=== PATIENT | female | born 1940 | race Caucasian/White ===

== ENCOUNTER → 2020-06-04 08:00 | Outpatient (BNV) | payer MEDICARE, SELFPAY | PROVIDERS: PCP Nurse Practitioner Family; Visit Provider Internal Medicine Medical Oncology | DX: C18.9 Malignant neoplasm of colon, unspecified (principal); Z85.3 Personal history of malignant neoplasm of breast; D64.9 Anemia, unspecified | CPT/HCPCS: 99212; 99213; 99214 ==

== ENCOUNTER 2020-06-22 07:24 | Outpatient (REF) | payer MEDICARE, SELFPAY ==
--- NOTE | 2020-06-22 07:32 | MM_ITS ---
EXAMINATION: MM SCREENING DIGITAL BREAST TOMOSYNTHESIS, BILATERAL CLINICAL INFORMATION: Screening. Asymptomatic. Prior history right breast cancer with lumpectomy 2009. COMPARISON: Mammography: 06/16/2019, 06/13/2018, 06/08/2017; targeted left breast ultrasound 06/17/2018 TECHNIQUE: Digital breast tomosynthesis is performed in both the craniocaudal and mediolateral oblique views along with computer-aided detection (CAD). Synthesized 2D images are generated from the tomosynthesis. Additional right CC view and exaggerated right CC view is provided. FINDINGS: There are scattered areas of fibroglandular density (ACR BI-RADS breast composition Category b). Parenchymal pattern is similar to prior studies. There are post therapy changes on the right with mild reduced breast size and benign scarring consistent with the lumpectomy. There is some dystrophic calcification within the scar. Small cyst retroareolar left breast is decreased in size since 2018. No interval architectural abnormality. No abnormal calcifications. No significant changes. MM/MM tomosynthesis screening BI IMPRESSION: No significant changes from prior exams. Post therapy changes right breast. ASSESSMENT: BI-RADS 2: Benign RECOMMENDATION: Routine annual mammography screening. This patient's information was entered into a reminder system with a target due date for their next mammogram.
--- NOTE | 2020-06-22 07:32 | MM_ITS ---
EXAMINATION: BONE DENSITOMETRY CLINICAL INDICATION: Osteoporosis. COMPARISON: Previous BD dated 06/13/2018 and baseline BD dated 06/22/2008. TECHNIQUE: Using a [employer] DXA System (software version: 13.1) manufactured by [employer], dual-energy x-ray absorptiometry was performed of the lumbar spine and left hip. The images are of good technical quality. Summary results are attached. FINDINGS: AP SPINE L1-L4: Current: BMD 0.854 g/cm2, Z-score -1.0, T-score -2.7, osteoporosis, 6.1% increase from previous, 10.9% increase from baseline (<5% change is not significant). Prior: BMD 0.805 g/cm2. Baseline: BMD 0.770 g/cm2. LEFT FEMUR, NECK: Current: BMD 0.726 g/cm2, Z-score -0.2, T-score -2.2, osteopenia. Prior: BMD 0.749 g/cm2. Baseline: BMD 0.821 g/cm2. LEFT FEMUR, TOTAL: Current: BMD 0.738 g/cm2, Z-score -0.2, T-score -2.1, osteopenia, 0.8% decrease from previous, 17.5% decrease from baseline (<5% change is not significant). Prior: BMD 0.744 g/cm2. Baseline: BMD 0.895 g/cm2. IDENTIFIED RISK FACTORS: Osteoporosis, height loss, early menopause, secondary osteoporosis, history of fracture (adult), thiazide, hysterectomy, bilateral oophorectomy. HISTORY OF FRACTURE: Wrist. No insufficiency fracture reported. MEDICATIONS: Calcium supplements or multivitamin, vitamin D. MM/XR DEXA axial skeleton IMPRESSION: 1. DIAGNOSIS: Osteoporosis based on the lowest T-score value of -2.7 in the lumbar spine applying World Health Organization criteria. 2. 10-YEAR FRACTURE RISK PREDICTION, FRAX: Major osteoporotic fracture (clinical spine, forearm, hip or shoulder) 24.6%. Hip fracture 7.3%. 3. Treatment Recommendations: NOF guidelines recommend consideration for treatment in postmenopausal women and men age 50 and older presenting with the following: -A hip or vertebral (clinical or morphometric) fracture. -T-score less than or equal to -2.5 at the femoral neck or spine after appropriate evaluation to exclude secondary causes. -Low bone mass at the hip or spine and a 10-year fracture probability by FRAX of greater than or equal to 3% for hip fracture or greater than or equal to 20% for major osteoporotic fracture based on the [place] adapted WHO algorithm. 4. Other Recommendations: All treatment decisions require clinical judgment and consideration of individual patient factors, including patient preferences, comorbidities, previous drug use, risk factors not captured in the FRAX model (e.g. frailty, falls, vitamin D deficiency, increased bone turnover, interval significant decline in bone density) and possible under or overestimation of fracture risk by FRAX. Additional medical evaluation for secondary cause of low bone mineral density may be appropriate. FUTURE SCAN RECOMMENDATION: People with diagnosed cases of osteoporosis or at high risk for fracture should have regular bone mineral density tests. For patients eligible for Medicare, routine testing is allowed once every 2 years. The testing frequency can be increased to one year for patients who have rapidly progressing disease, those who are receiving or discontinuing medical therapy to restore bone mass, or have additional risk factors.
== END 2020-06-22 07:25 | disposition home or self-care (01) ==
LOC: HO.MAMMO 07:24
PROVIDERS: Visit Provider Nurse Practitioner Family
DX: M81.0 Age-related osteoporosis without current pathological fracture (principal); Z12.31 Encounter for screening mammogram for malignant neoplasm of breast
CPT/HCPCS: 77063; 77067; 77080

== ENCOUNTER 2020-06-23 08:29 | Day surgery (SDC) | payer MEDICARE, SELFPAY ==
--- NOTE | 2020-06-22 12:38 | P.CONAN_ITS ---
Documented by User: Enid Ga 06/22/20 12:40 HPI - Anesthesia Eval Consult details Narrative: 80yo F for EGD: ALEJANDRO, GERD PMFSH Past Medical History Medical History Anemia B12 deficiency Breast cancer GERD (gastroesophageal reflux disease) Hypertension Osteoporosis Wrist fracture, bilateral Family History Family History Other Vaginal cancer Surgical History Surgical History (Updated 06/22/20 @ 12:28 by Katherine Villarreal RN) H/O colectomy H/O hysterectomy with oophorectomy History of appendectomy History of cataract surgery History of lumpectomy of right breast Hx of colonoscopy Hx of esophagogastroduodenoscopy Hx of lumpectomy S/P excision of lipoma Social History Social History Are you a primary intensive care specialist to a significant other at home: No Do you presently have visiting nurse or other home services: No Smoking Status: Former smoker Packs Per Day: 1 Cigarettes Per Day: 20.0 Years Smoked: 25 Smoked in Last 30 Days: No Smoking Quit Date: 1987 Use of substances other than those prescribed or required for medical reasons: No Advance Directives: No Advance Directives Information Provided: Yes (unknown) Advance Directives on File: No Recently lost weight without trying: Yes Meds Allergies Allergy/AdvReac Type Severity Reaction Status Date / Time meperidine [From Demerol] Allergy Mild VOMITING Verified 06/03/20 08:26 Home Medications Medication Instructions Recorded Confirmed Type calcium 500 mg PO BID 06/03/20 06/03/20 History cholecalciferol (vitamin D3) 25 mcg PO DAILY 06/03/20 06/03/20 History cyanocobalamin (vitamin B-12) 1,000 mcg IM QMONTH 06/03/20 06/03/20 History [B-12 Compliance] famotidine 20 mg PO BID 06/03/20 06/03/20 History ferrous sulfate 325 mg PO DAILY 06/03/20 06/03/20 History hydrochlorothiazide 25 mg PO DAILY 06/03/20 06/03/20 History btoxyjmtqpta-npiqvpby-wchcws 1 tab PO DAILY 06/03/20 06/03/20 History [Centrum Silver] tizanidine 4 mg PO BEDTIME PRN 06/03/20 06/03/20 History Exam Exam Date and Time: June 22, 2020 1238 Pertinent Lab Results Pertinent Lab Results: Laboratory Tests 06/03/20 06/03/20 08:42 08:42 WBC 3.8 L Hgb 7.4 L Hct 26.1 L Plt Count 312 Sodium 140 Potassium 4.1 Chloride 106 Carbon Dioxide 24 BUN 26 H Creatinine 1.04 Assessment and Plan Assessment Anesthesia Assessment: Chart Reviewed Documented by User: Isi Rowell 06/23/20 09:22 PMFSH Past Medical History Medical History Anemia B12 deficiency Breast cancer GERD (gastroesophageal reflux disease) Hypertension Osteoporosis Wrist fracture, bilateral Family History Family History Other Vaginal cancer Surgical History Surgical History (Updated 06/22/20 @ 12:28 by Katherine Villarreal RN) H/O colectomy H/O hysterectomy with oophorectomy History of appendectomy History of cataract surgery History of lumpectomy of right breast Hx of colonoscopy Hx of esophagogastroduodenoscopy Hx of lumpectomy S/P excision of lipoma Social History Social History Are you a primary intensive care specialist to a significant other at home: No Do you presently have visiting nurse or other home services: No Smoking Status: Former smoker Packs Per Day: 1 Cigarettes Per Day: 20.0 Years Smoked: 25 Smoked in Last 30 Days: No Smoking Quit Date: 1987 Use of substances other than those prescribed or required for medical reasons: No Advance Directives: No Advance Directives Information Provided: Yes (unknown) Advance Directives on File: No Recently lost weight without trying: Yes Meds Allergies Allergy/AdvReac Type Severity Reaction Status Date / Time meperidine [From Demerol] Allergy Mild VOMITING Verified 06/03/20 08:26 Home Medications Medication Instructions Recorded Confirmed Type calcium 500 mg PO BID 06/03/20 06/03/20 History cholecalciferol (vitamin D3) 25 mcg PO DAILY 06/03/20 06/03/20 History cyanocobalamin (vitamin B-12) 1,000 mcg IM QMONTH 06/03/20 06/03/20 History [B-12 Compliance] famotidine 20 mg PO BID 06/03/20 06/03/20 History ferrous sulfate 325 mg PO DAILY 06/03/20 06/03/20 History hydrochlorothiazide 25 mg PO DAILY 06/03/20 06/03/20 History yripnhftjnpd-oyemsbcr-tgdqcl 1 tab PO DAILY 06/03/20 06/03/20 History [Centrum Silver] tizanidine 4 mg PO BEDTIME PRN 06/03/20 06/03/20 History Exam Airway Mallampati Class: II (Onky one tooth bottom left) TM Dist: >3cm Neck ROM: Full Heart: RRR Lungs: CTA BL Assessment and Plan Assessment Anesthesia Assessment: Anesthesia Plan Discussed and Chart Reviewed Final Anesthetic Review NPO: Yes ASA Class: III Final Preanesthetic Review: Meds/Allgs Chart Reviewed and Consent Obtained/Reviewed Patient Risk: Intermediate Procedure Risk: Intermediate Anesthetic Plan Anesthetic Plan: MAC: Disposition: Standard PACU
[2020-06-23 08:41] VITALS: BP 153/76; PULSE 97; RESP 16; TEMP 36.3; O2SAT 97; BMI 24.8
[2020-06-23 09:56] VITALS: BP 111/52; PULSE 92; RESP 16; TEMP 36.6; O2SAT 92
--- NOTE | 2020-06-23 10:06 | PM.OP ---
Brief Operative Note Date of procedure: 06/23/20 Pre-op diagnosis: Anemia, GERD Post-op diagnosis: other (Large hiatal hernia with proximal gastritis, Duodenal polyp/? lipoma) Procedure: EGD with biopsy Surgeon: Kristofer Camarena Anesthesia: MAC Estimated blood loss (mL): 5.0 Pathology: other (A. Descending duodenum B. Duodenal polyp/? lipoma) Condition: stable Disposition: PACU
[2020-06-23 10:11] VITALS: BP 141/78; PULSE 86; O2SAT 96
--- NOTE | 2020-06-23 10:20 | OP_ITS ---
SURGEON: Kristofer Camarena MD INDICATIONS: The patient presents for evaluation of iron-deficiency anemia and gastroesophageal reflux. Full consent has been obtained from her for this, including risks of bleeding and perforation. PREOPERATIVE DIAGNOSIS: POSTOPERATIVE DIAGNOSIS: PROCEDURE PERFORMED: Esophagogastroduodenoscopy with biopsies. ESTIMATED BLOOD LOSS: COMPLICATIONS: ANESTHESIA: Monitored anesthesia care. ASSISTANTS: SPECIMENS: PREOPERATIVE DIAGNOSES: Iron-deficiency anemia and gastroesophageal reflux. POSTOPERATIVE DIAGNOSES: Iron-deficiency anemia and gastroesophageal reflux, large hiatal hernia, proximal gastritis, rule out celiac disease, duodenal polyp and/or lipoma. DESCRIPTION OF PROCEDURE: The patient was placed in the left lateral decubitus position. The Olympus video gastroscope was passed in the posterior oropharynx and upper esophagus under direct vision. The scope was passed slowly into the distal esophagus. The gastroesophageal junction appeared at approximately 28 cm. There was no sign of any esophagitis nor Mclain's esophagus. The scope entered into the stomach and there was a large hiatal hernia. The hiatal hernia mucosa had areas of some gastritis with erythema and edema, but no definitive erosions. The scope was advanced to pylorus and the duodenum was cannulated to the descending portion. The duodenum including the bulb was carefully inspected. The second portion of the duodenum was what appeared to be a lipoma as it was quite soft and had normal overlying mucosa. Biopsies were obtained from it. I do not think this was the major papilla. I also obtained biopsies in the 2nd and 3rd portion of the duodenum as well from normal-appearing mucosa to rule out celiac disease. The duodenal bulb appeared normal. The scope was withdrawn back in the stomach. The gastric antrum and body appeared normal with good peristalsis. The scope was retroflexed visualizing the proximal stomach carefully, which appeared normal other than gastritis, without any sign of mass or ulceration. The scope was straightened out and withdrawn back in the esophagus. The esophageal mucosa appeared normal. Scope was withdrawn from the patient. She tolerated the procedure well and was returned to the recovery area in stable condition. IMPRESSION: 1. Large hiatal hernia with associated proximal gastritis. 2. Duodenal polyp and/or lipoma, status post biopsy. 3. Rule out celiac disease. PLAN: The results of the biopsy will be checked. She was advised to use iron supplements daily. She will be started on omeprazole 20 mg each morning, but was advised to continue her H2 sabrina each evening. She will be seen within 2 or 3 months for a followup visit. She did have a negative colonoscopy in 2016 for evaluation of anemia and also had a negative colonoscopy in 2008. Therefore, we may hold off on the colonoscopy given the findings today and the clinical history. This has been discussed with her cousin. MD WOOD Gillis/ROBIN / [id number]
--- NOTE | 2020-06-23 10:35 | HO.POSTANES ---
Post Anesthesia Evaluation Post Anesthesia Evaluation Vital Signs: Vital Signs Temp Pulse Resp BP Pulse Ox 06/23/20 10:11 98 F 86 141/78 H 96 06/23/20 09:56 98 F 92 16 111/52 L 92 06/23/20 08:41 97.3 F 97 16 153/76 H 97 Anesthesia: Monitored Mental Status: Awake Pain Control: Satisfactory Nausea/Vomiting: None Hydration: Adequate Anesthesia-Related Issues: No Anes. Related Issues
== END 2020-06-23 10:55 | disposition home or self-care (01) ==
PROVIDERS: PCP Nurse Practitioner Family; Visit Provider Internal Medicine
PROC: 0DJ08ZZ Inspection of Upper Intestinal Tract, Via Natural or Artificial Opening Endoscopic (ICD-10-PCS; CPT 43235; principal; 2020-06-23 09:30)
DX: K21.00 Gastro-esophageal reflux disease with esophagitis, without bleeding (principal); D50.9 Iron deficiency anemia, unspecified; K44.9 Diaphragmatic hernia without obstruction or gangrene; K31.7 Polyp of stomach and duodenum; I10 Essential (primary) hypertension; E53.8 Deficiency of other specified B group vitamins; Z85.3 Personal history of malignant neoplasm of breast; Z92.3 Personal history of irradiation; Z79.899 Other long term (current) drug therapy
CPT/HCPCS: 43239; 88305

== ENCOUNTER 2021-04-22 08:21 | Emergency (ER) | payer MEDICARE, SELFPAY ==
--- NOTE | ~2021-04-22 | XR_ITS ---
EXAMINATION: XR SHOULDER, RIGHT CLINICAL INFORMATION: Fall, trauma, pain COMPARISON: Chest radiographs 04/22/2021, 06/03/2020 TECHNIQUE: Right shoulder is imaged portably in 2 views. FINDINGS: There is a fracture surgical neck humerus, likely comminuted. The major distal fracture fragment is slightly displaced medially. There is no dislocation or visible destructive process. The acromioclavicular alignment is normal. No pneumothorax or pleural reaction right chest. There are surgical clips overlying the right axilla or breast. XR/XR shoulder RT min 2V IMPRESSION: Proximal right humeral fracture. No dislocation.
--- NOTE | ~2021-04-22 | XR_ITS ---
EXAMINATION: XR CHEST CLINICAL INFORMATION: Fall, trauma, pain COMPARISON: Chest radiographs 06/03/2020, 03/28/2010. Radiographs right shoulder 04/22/2021. TECHNIQUE: Frontal view of the chest was obtained. FINDINGS: There is no pneumothorax, pleural reaction, infiltrate, or effusion. The cardiac and hilar and mediastinal contours are stable. There is a retrocardiac hiatal hernia again seen. This measures at least 8 cm in the vertical dimension. No free air beneath the diaphragms. Right proximal humeral fracture present as noted on today's shoulder films. There are 2 old healed fractures left posterior lateral seventh and eighth ribs. XR/XR chest 1V IMPRESSION: 1. No pneumothorax, infiltrate, or effusion. 2. Chronic moderate to large hiatal hernia. 3. Acute proximal right humeral fracture.
[2021-04-22 08:30] VITALS: BP 156/85; PULSE 97; RESP 16; TEMP 36.7; O2SAT 95; BMI 26.2
--- NOTE | 2021-04-22 08:30 | ED_ITS ---
HPI - Fall General Chief Complaint: Fall Stated Complaint: fall last night Time Seen by Provider: 04/22/21 08:30 Source: patient, family and EMS Mode of arrival: EMS Limitations: no limitations History of Present Illness MD complaint: fall Onset (ago): hour(s) (last night - several ) Fall from: standing Fall witnessed: no Place fall occurred: home Loss of consciousness: none Prolonged down time: yes Symptoms prior to fall: none Context: tripped/slipped Location of injury - extremities: right: shoulder Severity: moderate Quality: aching Associated symptoms (after fall): denies Related Data Home Medications Medication Instructions Recorded Confirmed calcium 500 mg tablet 500 mg PO BID 06/03/20 06/03/20 cholecalciferol (vitamin D3) 25 25 mcg PO DAILY 06/03/20 06/03/20 mcg (1,000 unit) tablet cyanocobalamin (vitamin B-12) 1,000 mcg IM QMONTH 06/03/20 06/03/20 1,000 mcg/mL injection kit (B-12 Compliance) famotidine 20 mg tablet 20 mg PO BID 06/03/20 06/03/20 ferrous sulfate 325 mg (65 mg 325 mg PO DAILY 06/03/20 06/03/20 iron) tablet hydrochlorothiazide 25 mg tablet 25 mg PO DAILY 06/03/20 06/03/20 hpikgczavsyf-jmottoyg-mppsul tablet 1 tab PO DAILY 06/03/20 06/03/20 tizanidine 4 mg tablet 4 mg PO BEDTIME PRN 06/03/20 06/03/20 omeprazole 20 mg capsule,delayed 1 cap PO QAM 12/03/20 12/03/20 release Previous Rx's Medication Instructions Recorded morphine 15 mg immediate release 15 mg PO Q6H PRN 3 Days #12 tab 04/22/21 tablet Allergies Allergy/AdvReac Type Severity Reaction Status Date / Time meperidine [From Demerol] Allergy Mild VOMITING Verified 06/03/20 08:26 Review of Systems Review of Systems: Constitutional : No Fever, No Chills ENT/Mouth : No Ear Pain, No Hoarseness, No sore throat Eyes: No Eye Pain, No Swelling, No Redness, No Foreign Body Cardiovascular : No Chest Pain, No SOB Respiratory : No Cough, No Dyspnea Gastrointestinal : No Nausea, No Vomiting, No Diarrhea, No abdominal Pain Genitourinary : No Dysuria, No Hematuria Musculoskeletal : positive joint pain, No Myalgias, pos Joint Swelling Skin : No Skin lacerations, No rash Neuro : No Weakness, No Numbness, No Loss of Consciousness, No Dizziness, No Headache Psych : No Anxiety/Panic, No Depression Heme/Lymph: no easy bruising, no Lymphadenopathy Endocrine : No Polyuria, No Polydipsia All other systems reviewed and are negative [facility] Past Medical History Medical History Anemia B12 deficiency Breast cancer GERD (gastroesophageal reflux disease) Hypertension Osteoporosis Wrist fracture, bilateral Surgical History H/O colectomy H/O hysterectomy with oophorectomy History of appendectomy History of cataract surgery History of lumpectomy of right breast Hx of colonoscopy Hx of esophagogastroduodenoscopy Hx of lumpectomy S/P excision of lipoma Family History Family History Other Vaginal cancer Social History Social History Are you a primary primary care coordinator to a significant other at home: No Do you presently have visiting nurse or other home services: No Alcohol intake: never Cigarette Packs Per Day: 1 Years Smoked: 25 Smoked in Last 30 Days: No Use of substances other than those prescribed or required for medical reasons: No Advance Directives: No Advance Directives Information Provided: Yes Physical Exam Vital Signs: Vital Signs: Last Vital Signs Temp 98.1 F 04/22/21 08:30 Pulse 97 04/22/21 08:30 Resp 16 04/22/21 08:40 BP 156/85 H 04/22/21 08:30 Pulse Ox 95 04/22/21 08:30 Body Mass Index 26.2 Appearance: Alert. Oriented X3. No acute distress. Eyes: Pupils equal, round and reactive to light. ENT: Pharynx normal. Neck: Normal inspection. Neck supple. CVS: Normal heart rate and rhythm. Pulses normal. Chest: no chest wall ttp no crepitus Respiratory: No respiratory distress. Breath sounds normal. Abdomen: Soft and nontender. Skin: Skin warm and dry. Normal skin color. Normal skin turgor. Extremities: No lower extremity edema. R shoulder sig ecchymosis with contusion and shoulder effusion noted - distal NV intact, ttp along R humerus and shoulder Neuro: Oriented X 3. No motor deficit. No sensory deficit. Course Course Course Narrative: message sent to Isma VIVAS from orthopedics - sling and outpatient follow up Patient placed in physician observation at 935am . The indication for observation is that the patient needs more time for evaluation for STR by PT/CM. At this time the patient is well developed well nourished, lungs clear, CV RRR, abd nontender, neuro is intact. Physician observation ended at 140pm Patient seen and cleared by PT/CM for STR Plan is to follow up with orthopedics outpatient. NAD, lungs clear, CV RRR, Abd nontender, Neuro intact. Disposition is for STR Procedures Orthopedic Splinting/Casting Injury #1: Side: right Upper Extremity Injury Location: upper arm Upper Extremity Immobilizer: sling/shoulder immobilizer MDM - Fall MDM Narrative Medical decision making narrative: 80 yo female with mechanical fall last night was on the floor for all night because she didn't want to bother her family - at this time isolated R shoulder/humerus injury NV intact. No head/cspine injury or complaints. Labs, IV morphine for pain, xrays of shoulder, dispo per results and findings. Lab Data Result diagrams: 04/22/21 09:00 04/22/21 09:00 Labs: Lab Results 04/22/21 04/22/21 04/22/21 Range/Units 09:00 09:00 09:00 WBC 9.5 (4.8-10.8) X10*3/uL RBC 3.63 L (4.20-5.50) X10*6/uL Hgb 9.1 L (12.0-16.0) g/dl Hct 29.5 L (37-47) % MCV 81.3 (80-98) fL MCH 25.1 L (27.0-33.0) pg MCHC 30.8 L (31.0-35.0) g/dl RDW 16.0 (11.0-16.0) % Plt Count 240 (160-400) X10*3/uL MPV 10.2 (9.4-12.3) fL Immature Gran % (Auto) 0.8 H (0.0-0.4) % Neut % (Auto) 85.6 H (45-73) % Lymph % (Auto) 5.6 L (20-40) % [place] % (Auto) 7.5 (2-11) % Eos % (Auto) 0.1 (0-4) % Baso % (Auto) 0.4 (0-2) % Lymph # (Auto) 0.5 L (1.2-4.9) X10*3/uL [place] # (Auto) 0.7 (0.1-1.2) X10*3/uL Eos # (Auto) 0.0 (0.0-0.4) X10*3/uL Baso # (Auto) 0.0 (0.0-0.2) X10*3/uL Abs Immat Gran (auto) 0.08 H (0.00-0.03) X10*3/uL Absolute Neuts (auto) 8.2 (2.0-8.3) X10*3/uL Absolute Nucleated RBC 0.000 (0.0-0.012) X10*3/uL Nucleated RBC % (auto) 0.0 (0.0-0.2) /100WBC PT 12.8 (9.9-13.0) SEC INR 1.1 (0.9-1.1) APTT 28.2 (24.1-38.0) SEC Sodium 141 (135-145) mmol/L Potassium 3.2 L D (3.3-5.1) mmol/L Chloride 108 (96-108) mmol/L Carbon Dioxide 21 L (22-29) mmol/L Anion Gap 15 (12-20) BUN 22 H (9-16) mg/dL Creatinine 1.12 (0.5-1.4) mg/dL Estim Creat Clear Calc 38.9 Estimated GFR 47 Random Glucose 135 H (60-115) mg/dL Calcium 9.1 (8.4-10.2) mg/dL Total Bilirubin 0.9 (0.0-1.0) mg/dL Direct Bilirubin 0.4 (0.0-0.5) mg/dL AST 15 (5-31) U/L ALT 8 (0-31) U/L Alkaline Phosphatase 77 D (39-117) U/L Total Creatine Kinase 154 H (26-140) U/L Total Protein 6.5 (6.5-8.0) g/dL Albumin 4.2 (3.5-5.0) g/dL COVID-19 (SOFI[facility]) (Negative) COVID-19 Clin Com 04/22/21 Range/Units 09:00 WBC (4.8-10.8) X10*3/uL RBC (4.20-5.50) X10*6/uL Hgb (12.0-16.0) g/dl Hct (37-47) % MCV (80-98) fL MCH (27.0-33.0) pg MCHC (31.0-35.0) g/dl RDW (11.0-16.0) % Plt Count (160-400) X10*3/uL MPV (9.4-12.3) fL Immature Gran % (Auto) (0.0-0.4) % Neut % (Auto) (45-73) % Lymph % (Auto) (20-40) % [place] % (Auto) (2-11) % Eos % (Auto) (0-4) % Baso % (Auto) (0-2) % Lymph # (Auto) (1.2-4.9) X10*3/uL [place] # (Auto) (0.1-1.2) X10*3/uL Eos # (Auto) (0.0-0.4) X10*3/uL Baso # (Auto) (0.0-0.2) X10*3/uL Abs Immat Gran (auto) (0.00-0.03) X10*3/uL Absolute Neuts (auto) (2.0-8.3) X10*3/uL Absolute Nucleated RBC (0.0-0.012) X10*3/uL Nucleated RBC % (auto) (0.0-0.2) /100WBC PT (9.9-13.0) SEC INR (0.9-1.1) APTT (24.1-38.0) SEC Sodium (135-145) mmol/L Potassium (3.3-5.1) mmol/L Chloride (96-108) mmol/L Carbon Dioxide (22-29) mmol/L Anion Gap (12-20) BUN (9-16) mg/dL Creatinine (0.5-1.4) mg/dL Estim Creat Clear Calc Estimated GFR Random Glucose (60-115) mg/dL Calcium (8.4-10.2) mg/dL Total Bilirubin (0.0-1.0) mg/dL Direct Bilirubin (0.0-0.5) mg/dL AST (5-31) U/L ALT (0-31) U/L Alkaline Phosphatase (39-117) U/L Total Creatine Kinase (26-140) U/L Total Protein (6.5-8.0) g/dL Albumin (3.5-5.0) g/dL COVID-19 ([facility]FIYA) Negative (Negative) COVID-19 Clin Com See Note Discharge Plan Discharge Clinical Impression: Acute hypokalemia Fracture, humerus Qualifiers: Encounter type: initial encounter Humerus Location: proximal Fracture type: closed Fracture alignment: displaced Laterality: right Patient Disposition: Xfer SNF Instructions: Arm Fracture in Adults (ED), Hypokalemia (ED), How to Use a Sling (ED) Additional Instructions: wear sling until released Prescriptions: New morphine 15 mg tablet 15 mg PO Q6H PRN (Reason: pain) 3 Days Qty: 12 RF: 0 No Action tizanidine 4 mg tablet 4 mg PO BEDTIME PRN (Reason: Pain) RF: 0 calcium 500 mg Tablet 500 mg PO BID RF: 0 famotidine 20 mg tablet 20 mg PO BID RF: 0 ferrous sulfate 325 mg (65 mg iron) Tablet 325 mg PO DAILY RF: 0 hydrochlorothiazide 25 mg tablet 25 mg PO DAILY RF: 0 Centrum Silver Tablet 1 tab PO DAILY RF: 0 cholecalciferol (vitamin D3) 25 mcg (1,000 unit) Tablet 25 mcg PO DAILY RF: 0 B-12 Compliance 1,000 mcg/mL Kit 1,000 mcg IM QMONTH RF: 0 omeprazole 20 mg capsule,delayed release(DR/EC) 1 cap PO QAM RF: 0 Referrals: Vlad Ashby PA-C [Physician Prep Person] - 5 days
[2021-04-22 08:40] VITALS: RESP 16
[2021-04-22] MEDS: ondansetron HCL 4 MG/2 ML VIAL IVPUSH (08:40)
[2021-04-22] MEDS: Morphine Sulfate 4 MG/ML CARTRIDGE IVPUSH (08:40)
[2021-04-22 09:04] LABS: MANUAL DIFF FLAG NO
[2021-04-22 09:09] LABS: Basophils Percent Auto 0.4 % (0-2); Eosinophils Percent Auto 0.1 % (0-4); Hematocrit 29.5 % (37-47); Hemoglobin 9.1 g/dl (12.0-16.0); Imm Gran Abs Auto 0.08 X10*3/uL (0.00-0.03); Imm Gran Pct Auto 0.8 % (0.0-0.4); Lymphocytes Absolute Auto 0.5 X10*3/uL (1.2-4.9); Lymphocytes Percent Auto 5.6 % (20-40); Mean Corpuscular HGB Conc 30.8 g/dl (31.0-35.0); Mean Corpuscular Hemoglobin 25.1 pg (27.0-33.0); Mean Corpuscular Volume 81.3 fL (80-98); Mean Platelet Volume 10.2 fL (9.4-12.3); Monocytes Absolute Auto 0.7 X10*3/uL (0.1-1.2); Monocytes Percent Auto 7.5 % (2-11); Neutrophils Absolute Auto 8.2 X10*3/uL (2.0-8.3); Neutrophils Percent Auto 85.6 % (45-73); Platelet Count 240 X10*3/uL (160-400); Red Blood Count 3.63 X10*6/uL (4.20-5.50); White Blood Count 9.5 X10*3/uL (4.8-10.8)
[2021-04-22 09:11] LABS: INTERNATIONAL NORM RATIO 1.1 (0.9-1.1); Prothrombin Time 12.8 SEC (9.9-13.0)
[2021-04-22 09:14] LABS: Partial Thromboplastin Time 28.2 SEC (24.1-38.0)
[2021-04-22 09:21] LABS: COVID-19 Test Negative (Negative)
[2021-04-22 09:27] LABS: Alanine Aminotransferase 8 U/L (0-31); Albumin Level 4.2 g/dL (3.5-5.0); Alkaline Phosphatase 77 U/L (39-117); Anion Gap 15 (12-20); Aspartate Amino Transferase 15 U/L (5-31); Bilirubin Direct 0.4 mg/dL (0.0-0.5); Bilirubin Total 0.9 mg/dL (0.0-1.0); Blood Urea Nitrogen 22 mg/dL (9-16); Calcium 9.1 mg/dL (8.4-10.2); Carbon Dioxide 21 mmol/L (22-29); Chloride 108 mmol/L (96-108); Creatinine Clr Calc Pharmacy 38.9; Estimated Glomerular Filt Rate 47; Glucose Random 135 mg/dL (60-115); Potassium 3.2 mmol/L (3.3-5.1); Sodium 141 mmol/L (135-145); Total Protein 6.5 g/dL (6.5-8.0)
--- NOTE | 2021-04-22 09:28 | PC.NURSE ---
plan for pt to go to rehab facility, [facility]
[2021-04-22] MEDS: Potassium Chloride ER 20 MEQ TAB.ER.PRT 40 MEQ PO (09:34)
--- NOTE | 2021-04-22 10:24 | PC.NURSE ---
pt at bedside- plan for str
--- NOTE | 2021-04-22 11:50 | PC.NURSE ---
AWAITING SNF PLACEMENT
--- NOTE | 2021-04-22 12:48 | MHC.CM.ED ---
pt has requested refs made to str's in [facility] , in this process a bed was offered at [facility] for a single room. the patient accepted the bed offer and is [place] [facility] at 130 pm. rn and md are aware of this dc plan . cm to cont. to follow.
== END 2021-04-22 13:42 | disposition skilled nursing facility (03) ==
PROVIDERS: Emergency Provider Emergency Medicine; PCP Nurse Practitioner Family
DX: E87.6 Hypokalemia (principal); S42.214A Unspecified nondisplaced fracture of surgical neck of right humerus, initial encounter for closed fracture; W06.XXXA Fall from bed, initial encounter; Y93.84 Activity, sleeping; Y92.013 Bedroom of single-family (private) house as the place of occurrence of the external cause; Y99.9 Unspecified external cause status
CPT/HCPCS: 36415; 71045; 73030; 80048; 80076; 82550; 85025; 85610; 85730; 87635; 96374; 96375; 97162; 99284; 99285; J2270; J2405

== ENCOUNTER 2021-04-29 09:28 | Outpatient (REF) | payer MEDICARE, SELFPAY ==
--- NOTE | ~2021-04-29 | XR_ITS ---
EXAMINATION: XR SHOULDER, RIGHT CLINICAL INFORMATION: Right shoulder fracture COMPARISON: April 22, 2021 TECHNIQUE: Two-view of the right shoulder. FINDINGS: There is no change in alignment or appearance of the surgical neck fracture right proximal humerus. There remains medial displacement of the major distal fracture fragment. XR/XR shoulder RT min 2V IMPRESSION: No change in alignment of proximal right humeral fracture.
== END 2021-04-29 09:29 | disposition home or self-care (01) ==
LOC: HO.HOSX 09:28
PROVIDERS: PCP Nurse Practitioner Family; Visit Provider Physician Assistant
DX: S42.201A Unspecified fracture of upper end of right humerus, initial encounter for closed fracture (principal)
CPT/HCPCS: 73030; 99202

== ENCOUNTER 2021-05-27 07:06 | Outpatient (REF) | payer MEDICARE, SELFPAY ==
--- NOTE | ~2021-05-27 | XR_ITS ---
EXAMINATION: XR SHOULDER, RIGHT CLINICAL INFORMATION: Right shoulder pain. COMPARISON: Multiple priors, most recent right shoulder radiographs dated 04/29/2021. TECHNIQUE: AP and scapular Y views of the right shoulder. FINDINGS: Redemonstration of a displaced, comminuted proximal humeral fracture in unchanged anatomic alignment. There is persistent anterior displacement of the humeral shaft with overlap of the osseous fragments as well as inferior rotation of the nondisplaced humeral head. Minimal interval new bone/callus formation. Right axilla surgical clips. XR/XR shoulder RT min 2V IMPRESSION: Comminuted and displaced proximal humeral fracture in unchanged anatomic alignment with minimal new bone/callus formation.
== END 2021-05-27 07:07 | disposition home or self-care (01) ==
LOC: HO.HOSX 07:06
PROVIDERS: Visit Provider Physician Assistant
DX: S42.201D Unspecified fracture of upper end of right humerus, subsequent encounter for fracture with routine healing (principal)
CPT/HCPCS: 73030; 99212

== ENCOUNTER 2021-06-10 08:43 | Outpatient (REF) | payer MEDICARE, SELFPAY ==
[2021-06-10 09:46] LABS: Basophils Absolute Auto 0.1 X10*3/uL (0.0-0.2); Basophils Percent Auto 0.8 % (0-2); Eosinophils Percent Auto 0.3 % (0-4); Hematocrit 34.7 % (37-47); Hemoglobin 10.6 g/dl (12.0-16.0); Imm Gran Abs Auto 0.04 X10*3/uL (0.00-0.03); Imm Gran Pct Auto 0.7 % (0.0-0.4); Lymphocytes Absolute Auto 1.1 X10*3/uL (1.2-4.9); Lymphocytes Percent Auto 18.2 % (20-40); MANUAL DIFF FLAG NO; Mean Corpuscular HGB Conc 30.5 g/dl (31.0-35.0); Mean Corpuscular Hemoglobin 26.2 pg (27.0-33.0); Mean Corpuscular Volume 85.7 fL (80-98); Monocytes Absolute Auto 0.6 X10*3/uL (0.1-1.2); Monocytes Percent Auto 10.6 % (2-11); Neutrophils Absolute Auto 4.2 X10*3/uL (2.0-8.3); Neutrophils Percent Auto 69.4 % (45-73); Platelet Count 266 X10*3/uL (160-400); Red Blood Count 4.05 X10*6/uL (4.20-5.50); Red Cell Distribution Width 15.9 % (11.0-16.0); White Blood Count 6.1 X10*3/uL (4.8-10.8)
[2021-06-10 10:22] LABS: Anion Gap 16 (12-20); Blood Urea Nitrogen 26 mg/dL (9-16); Calcium 9.9 mg/dL (8.4-10.2); Carbon Dioxide 25 mmol/L (22-29); Chloride 105 mmol/L (96-108); Estimated Glomerular Filt Rate 53; Glucose Random 96 mg/dL (60-115); Potassium 3.5 mmol/L (3.3-5.1); Sodium 142 mmol/L (135-145)
[2021-06-10 10:35] LABS: Alanine Aminotransferase 10 U/L (0-31); Albumin Level 4.3 g/dL (3.5-5.0); Alkaline Phosphatase 66 U/L (39-117); Anion Gap 15 (12-20); Aspartate Amino Transferase 15 U/L (5-31); Bilirubin Total 0.7 mg/dL (0.0-1.0); Blood Urea Nitrogen 27 mg/dL (9-16); Calcium 9.8 mg/dL (8.4-10.2); Carbon Dioxide 24 mmol/L (22-29); Chloride 107 mmol/L (96-108); Estimated Glomerular Filt Rate 52; Glucose Random 98 mg/dL (60-115); Potassium 3.6 mmol/L (3.3-5.1); Sodium 142 mmol/L (135-145); Total Protein 6.7 g/dL (6.5-8.0)
[2021-06-13 13:22] LABS: CA 27.29 17 U/mL (<38)
== END 2021-06-10 08:44 | disposition home or self-care (01) ==
LOC: HO.LAB 08:43
PROVIDERS: Internal Medicine Medical Oncology; PCP Nurse Practitioner Family; Visit Provider Nurse Practitioner Family
DX: C50.919 Malignant neoplasm of unspecified site of unspecified female breast (principal); D51.0 Vitamin B12 deficiency anemia due to intrinsic factor deficiency; N28.9 Disorder of kidney and ureter, unspecified
CPT/HCPCS: 36415; 80048; 80053; 82306; 85025; 86300

== ENCOUNTER 2021-07-08 07:12 | Outpatient (REF) | payer MEDICARE, SELFPAY ==
--- NOTE | ~2021-07-08 | XR_ITS ---
EXAMINATION: XR SHOULDER, RIGHT CLINICAL INFORMATION: Fracture COMPARISON: Previous x-ray most recent May 2021 TECHNIQUE: 2 views of the right shoulder. FINDINGS: There is a comminuted right humeral neck fracture. The humeral shaft appears displaced anteriorly and medially with respect to the humeral head. Fracture appears unchanged. Fracture lines are still seen. There is some bony callus formation seen. The humeral head appears abnormally rotated to the glenoid. This is unchanged. There are surgical clips in the right axilla. There are old-appearing right-sided rib fractures. XR/XR shoulder RT min 2V IMPRESSION: No change in right proximal humerus fracture from previous exams.
== END 2021-07-08 07:13 | disposition home or self-care (01) ==
LOC: HO.HOSX 07:12
PROVIDERS: Visit Provider Physician Assistant
DX: S42.201D Unspecified fracture of upper end of right humerus, subsequent encounter for fracture with routine healing (principal); F17.210 Nicotine dependence, cigarettes, uncomplicated
CPT/HCPCS: 73030; 99212

== ENCOUNTER 2021-07-18 13:02 | Outpatient (REF) | payer MEDICARE, SELFPAY ==
[2021-07-18 14:20] LABS: MANUAL DIFF FLAG NO
[2021-07-18 14:44] LABS: Basophils Percent Auto 0.5 % (0-2); Eosinophils Percent Auto 0.1 % (0-4); Hemoglobin 11.3 g/dl (12.0-16.0); Imm Gran Abs Auto 0.04 X10*3/uL (0.00-0.03); Imm Gran Pct Auto 0.5 % (0.0-0.4); Lymphocytes Absolute Auto 1.8 X10*3/uL (1.2-4.9); Lymphocytes Percent Auto 24.6 % (20-40); Mean Corpuscular HGB Conc 31.4 g/dl (31.0-35.0); Mean Corpuscular Hemoglobin 26.7 pg (27.0-33.0); Mean Corpuscular Volume 84.9 fL (80.0-98.0); Mean Platelet Volume 10.8 fL (9.4-12.3); Monocytes Absolute Auto 0.8 X10*3/uL (0.1-1.2); Monocytes Percent Auto 10.9 % (2-11); Neutrophils Absolute Auto 4.7 x10*3/uL (2.0-8.3); Neutrophils Percent Auto 63.4 % (45-73); Platelet Count 328 X10*3/uL (160-400); Red Blood Count 4.24 X10*6/uL (4.20-5.50); Red Cell Distribution Width 14.6 % (11.0-16.0); White Blood Count 7.4 X10*3/uL (4.8-10.8)
[2021-07-18 15:06] LABS: Anion Gap 15 (12-20); Blood Urea Nitrogen 13 mg/dL (9-16); Calcium 9.4 mg/dL (8.4-10.2); Carbon Dioxide 23 mmol/L (22-29); Chloride 103 mmol/L (96-108); D Dimer High Sensitivity 288 NG/ML; Estimated Glomerular Filt Rate 55; Glucose Random 95 mg/dL (60-115); Potassium 3.9 mmol/L (3.3-5.1); Sodium 137 mmol/L (135-145)
[2021-07-18 15:08] LABS: Troponin-I High Sensitivity < 3.5 ng/L (<3.5-17.0)
[2021-07-18 15:34] LABS: Erythrocyte Sedimentation Rate 22 MM/HR (0-20)
== END 2021-07-18 13:03 | disposition home or self-care (01) ==
LOC: HO.LAB 13:02
PROVIDERS: PCP Nurse Practitioner Family; Visit Provider Hospitalist
DX: J44.9 Chronic obstructive pulmonary disease, unspecified (principal); R00.0 Tachycardia, unspecified; I27.20 Pulmonary hypertension, unspecified; F17.210 Nicotine dependence, cigarettes, uncomplicated; R78.89 Finding of other specified substances, not normally found in blood
CPT/HCPCS: 36415; 80048; 84484; 85025; 85379; 85652; 99202

== ENCOUNTER 2021-07-27 09:33 | Outpatient (REF) | payer MEDICARE, SELFPAY ==
--- NOTE | ~2021-07-27 | CT_ITS ---
EXAMINATION: CT ANGIOGRAM OF THE CHEST WITH AND WITHOUT CONTRAST (CT PULMONARY ANGIOGRAM FOR PE) CLINICAL INFORMATION: R78.89 - Finding of other specified substances. Elevated d-dimer. COMPARISON: Chest radiograph 04/22/2021 TECHNIQUE: Prior to contrast administration, noncontrast localization images were obtained. Subsequently, multidetector volumetric imaging was performed from the thoracic inlet to below the diaphragms following the administration of 65 mL Omnipaque 350 intravenous contrast. Sagittal, coronal, and MIP oblique sagittal reformatted images were obtained on the CT workstation, uploaded to PACS, and reviewed. This CT examination was performed using dose optimization techniques as appropriate, variously including the following: *Automated exposure control *Adjustment of mA and/or kV according to patient size (this includes techniques or standardized protocols for targeted exams where dose is matched to indication/reason for exam; i.e. extremities or head) *Use of iterative reconstruction technique Total exam dose-length product 131 mGy-cm FINDINGS: QUALITY OF STUDY/CONTRAST BOLUS: Satisfactory. PULMONARY ARTERIES: No central or segmental pulmonary emboli. THORACIC AORTA: No aneurysm or dissection. LUNG: Prominent emphysematous changes greatest upper lobes but also involving lower zones. No lobar or segmental airspace consolidation or groundglass opacity. There is some mild accentuation of the interstitial markings. 0.4 cm nodule lateral right apical upper lobe S11/94. 0.4 cm subpleural nodule right lateral base, S11/332 PLEURA: No pleural effusion or pneumothorax. MEDIASTINUM: Normal heart size. No pericardial effusion. No hilar or mediastinal lymphadenopathy. No evidence of septal bowing or right heart strain. Hiatal hernia approximately 5 x 5 x 7 cm. CHEST WALL/AXILLA: No axillary or internal mammary lymphadenopathy. OSSEOUS STRUCTURES: No acute or suspicious osseous abnormality. UPPER ABDOMEN: Bilateral parapelvic renal cysts. Left upper pole renal cyst 2.2 cm, water attenuation. No additional imaging required. Incidental calcified granulomata spleen. No reflux of contrast into the hepatic veins to suggest elevated right heart pressures. CT/CT angio chest PE protocol IMPRESSION: 1. No pulmonary embolism. No thoracic aortic enlargement or dissection. 2. Prominent emphysematous changes. No infiltrate or effusion. 3. 2 small right lung nodules, each around 0.4 cm. Fleischner guidelines below. VTE: negative Reference: The Fleischner Society recommendations for management of incidentally detected pulmonary nodules in adults age 35 and greater are based on average nodule size and patient risk category. The recommendations do not apply to lung cancer screening, patients with immunosuppression, or patients with known primary cancer. Single solid nodule average size < 6 mm: Low Risk Patient: No routine follow-up. High Risk Patient: Optional CT at 12 months. Certain patients at high risk with suspicious nodule morphology, upper lobe location, or both may warrant 12-month follow-up.
[2021-07-27] MEDS: iohexoL 350 MG/ML 100 ML INFUS..BTL IV (10:34)
== END 2021-07-27 09:34 | disposition home or self-care (01) ==
LOC: HO.CT 09:33
PROVIDERS: Visit Provider Hospitalist
DX: R78.89 Finding of other specified substances, not normally found in blood (principal); R00.0 Tachycardia, unspecified; R06.00 Dyspnea, unspecified
CPT/HCPCS: 71275; Q9967

== ENCOUNTER 2021-08-05 09:49 | Outpatient (REF) | payer MEDICARE, SELFPAY ==
--- NOTE | 2021-08-05 11:13 | PFT_ITS ---
FLOWS: FEV1 80% of predicted at 1.63 L. FVC 77% of predicted at 2.13 L. FEV1 to FVC ratio of 0.77. No bronchodilator response. LUNG VOLUMES: Total lung capacity 76% of predicted at 3.99 L. Residual volume 75% of predicted at 1.84 L. Slow vital capacity 77% of predicted at 2.15 L. Expiratory reserve volume 98% of predicted at 0.56 L. Diffusion capacity is severely decreased, diffusion capacity adjust to being moderately decreased after correction for alveolar ventilation. IMPRESSION: Mild restrictive ventilatory defect with no bronchodilator response. Decreased diffusion capacity together with underlying restrictive lung defect suggests pulmonary parenchymal disease. Clinical correlation is advised. John Machado MD AP/MODL / [id number] MTDD
== END 2021-08-05 09:50 | disposition home or self-care (01) ==
LOC: HO.RESP 09:49
PROVIDERS: PCP Nurse Practitioner Family; Visit Provider Hospitalist
DX: R06.00 Dyspnea, unspecified (principal)
CPT/HCPCS: 94060; 94727; 94729

== ENCOUNTER 2021-08-16 08:06 | Outpatient (REF) | payer MEDICARE, SELFPAY ==
--- NOTE | ~2021-08-16 | XR_ITS ---
EXAMINATION: XR SHOULDER, RIGHT CLINICAL INFORMATION: Pain. Fracture. COMPARISON: Multiple priors, most recent right shoulder radiographs dated 07/08/2021. TECHNIQUE: AP, Gr[place], and scapular Y views of the right shoulder. FINDINGS: Redemonstration of an oblique proximal humeral fracture in unchanged anatomic alignment with anterior and medial displacement of the distal fracture fragment as well as mild rotation of the humeral head. Associated callus formation appears minimally increased when compared to the prior examination. No dislocation. No lytic or blastic osseous lesion. XR/XR shoulder RT min 2V IMPRESSION: Proximal right humeral fracture in unchanged anatomic alignment with minimal interval increase in new bone/callus formation.
== END 2021-08-16 08:07 | disposition home or self-care (01) ==
LOC: HO.HOSX 08:06
PROVIDERS: PCP Nurse Practitioner Family; Visit Provider Physician Assistant
DX: S42.201D Unspecified fracture of upper end of right humerus, subsequent encounter for fracture with routine healing (principal)
CPT/HCPCS: 73030; 99212

== ENCOUNTER → 2021-09-20 09:16 | Outpatient (REF) | payer MEDICARE, SELFPAY ==
--- NOTE | 2021-09-20 09:40 | CA_ITS ---
Transthoracic Echocardiogram Patient (Last, First, Middle): Nereida Rowell A Gender: Female Date of : 1940 Age: 81 Procedure Date: 09/20/2021 Procedure Type: Transthoracic Echocardiogram Location: OP Height: 165.1 cm Weight: 58.97 kg BSA: 1.65 m2 Heart Rate: bpm BP: 29 / 75 mmHg Assistant Technician: CHANTAL Referring MD: Laith Shirley MD Hvac Manager: Eduardo Elizabeth MD Symptoms: I27.20 - Pulmonary hypertension, unspecified Study Quality: Fair ECG Rhythm: Sinus Conclusions: - 1.Normal LV systolic function with impaired relaxation filling pattern 2. Normal cardiac valvular Doppler 3. Normal RV systolic pressure 4. No gross pericardial effusion Findings Left Ventricle Normal left ventricular size, thickness, and systolic function. The visually estimated ejection fraction is between 60-65%. Spectral Doppler is indicative of an impaired relaxation filling pattern. E/E prime ratio is between 8 and 15 consistent with indeterminate filling pressures. Right Ventricle Normal right ventricular cavity size and systolic function. Atria The left atrium is normal in size. There is lipomatous hypertrophy of the interatrial septum. There is no evidence of interatrial shunt. The right atrium is normal in size. Aortic Valve There is mild calcification of the aortic valve. There is mild thickening of the aortic valve. There is no aortic valve stenosis. There is no aortic valve regurgitation. Mitral Valve Likely normal mitral valve structure and function. There is trace mitral valve regurgitation. There is no mitral valve stenosis. Pulmonic Valve The pulmonic valve was not well visualized. Tricuspid Valve Likely normal tricuspid valve structure and function. There is trace tricuspid valve regurgitation. The right ventricular systolic pressure is normal. The right ventricular systolic pressure is 25 mmHg. There is no evidence of pulmonary hypertension. Great Vessels All visible segments of the aorta are normal in size. The pulmonary artery was not well visualized. Venous The inferior vena cava is normal in size and collapses greater than 50% with inspiration. Pericardium/Pleural There is no evidence of pericardial effusion. Prior Study Comparison No prior study available for comparison. Measurements 2D Linear Measurements IVSd: 0.91 0.6-0.9/0.6-1.0 cm LVIDd: 3.33 3.9-5.3/4.2-5.9 cm LVIDd Index: 2.02 2.4-3.2/2.2-3.1 cm/m2 LVIDs: 2.08 2.0-3.6 cm LVPWd: 0.97 0.7-1.1 cm Ao Root: 3.40 2.1-3.5 cm LA Diam: 2.30 2.7-3.8/3.0-4.0 cm LAIDs Index: 1.39 1.5-2.3 cm/m2 LV Mass: 108.17 67-162/88-224 g LV Mass Index: 65.56 43-95/49-115 g/m2 LVOT Diam: 2.00 3.0+(-)1.3 cm 2D Systolic Function EF 4C: 60.50 >55% EF 2C: 48.20 >55% EF BiP: 56.80 >55% Mitral Valve MV Pk E: 0.60 MV PK A: 0.80 MV Decel Time: 201.00 E/A: 0.70 E'Lateral: 6.96 E'Medial: 4.35 E/E' Med: 13.70 E/E' Lat: 8.60 PHT: 59.00 MVA PHT: 3.73 Decel [place]: 2.97 Aortic Valve AoV Pk Balbir: 1.28 AoV Pk Grad: 7.00 LVOT LVOT Pk Balbir: 1.08 LVOT Mn Balbir: 0.65 LVOT VTI: 0.17 LVOT Pk Grad: 5.00 LVOT Mn Grad: 2.00 LVOT Diam: 2.00 LVOT Area: 3.14 Diastolic Function MV Pk E: 0.60 MV Pk A: 0.80 E/A: 0.70 E'Medial: 4.35 E/E' Med: 13.70 E' Laterial: 6.96 E/E' Lat: 8.60 Right Ventricle TAPSE (mm): 1.92 TVS' Balbir: 20.20 Tricuspid Valve TR Pk Balbir: 2.36 TR Pk Grad: 22.00 RA Press: 3.00 RVSP: 25.00 Great Vessels Aorta Ao Root-2D: 3.40 2.0-3.7 cm Ao Asc: 3.50 2.1-3.4 cm Updated in Other Vendor System with Status of Final Eduardo Elizabeth MD electronically signed on 09/21/2021 6:41:51 PM with status of Final
== END ==
LOC: HO.CARD 09:16
PROVIDERS: PCP Nurse Practitioner Family; Visit Provider Hospitalist
DX: I27.20 Pulmonary hypertension, unspecified (principal); R06.00 Dyspnea, unspecified
CPT/HCPCS: 93306

== ENCOUNTER → 2021-10-03 09:18 | Outpatient (BNVA) | payer MEDICARE, SELFPAY | PROVIDERS: PCP Nurse Practitioner Family; Visit Provider Hospitalist | DX: J44.9 Chronic obstructive pulmonary disease, unspecified (principal); R91.1 Solitary pulmonary nodule; R06.00 Dyspnea, unspecified | CPT/HCPCS: 99212 ==

== ENCOUNTER 2021-10-10 07:10 | Outpatient (REF) | payer MEDICARE, SELFPAY ==
--- NOTE | ~2021-10-10 | XR_ITS ---
EXAMINATION: XR SHOULDER, RIGHT CLINICAL INFORMATION: Pain COMPARISON: Previous x-rays most recent July 2021 TECHNIQUE: Two views of the right shoulder. FINDINGS: There is a comminuted minimally displaced fracture of the right proximal humerus. Fracture line is still seen. No bony callus formation is seen. Glenohumeral alignment appears normal. The acromioclavicular joint is normal. There is question of a fracture of the distal humeral shaft seen on the Y view. No comparison imaging of this region is seen on old exams. There are surgical clips in the right axilla. XR/XR shoulder RT min 2V IMPRESSION: No change in right proximal humerus fracture. Fracture line still seen and no bony callus formation. Question fracture of the distal humeral shaft.
== END 2021-10-10 07:11 | disposition home or self-care (01) ==
LOC: HO.HOSX 07:10
PROVIDERS: Visit Provider Physician Assistant
DX: S42.201D Unspecified fracture of upper end of right humerus, subsequent encounter for fracture with routine healing (principal)
CPT/HCPCS: 73030; 99212

== ENCOUNTER 2021-10-22 07:38 | Outpatient (REF) | payer MEDICARE, SELFPAY ==
[2021-10-22 07:48] LABS: MANUAL DIFF FLAG NO
[2021-10-22 08:42] LABS: Basophils Absolute Auto 0.1 X10*3/uL (0.0-0.2); Basophils Percent Auto 1.1 % (0-2); Eosinophils Percent Auto 0.5 % (0-4); Hematocrit 32.1 % (37.0-47.0); Hemoglobin 9.9 g/dl (12.0-16.0); Imm Gran Abs Auto 0.04 X10*3/uL (0.00-0.03); Imm Gran Pct Auto 0.6 % (0.0-0.4); Lymphocytes Absolute Auto 1.4 X10*3/uL (1.2-4.9); Mean Corpuscular HGB Conc 30.8 g/dl (31.0-35.0); Mean Corpuscular Hemoglobin 26.1 pg (27.0-33.0); Mean Corpuscular Volume 84.5 fL (80.0-98.0); Mean Platelet Volume 10.7 fL (9.4-12.3); Monocytes Absolute Auto 0.6 X10*3/uL (0.1-1.2); Monocytes Percent Auto 9.1 % (2-11); Neutrophils Absolute Auto 4.3 x10*3/uL (2.0-8.3); Neutrophils Percent Auto 66.7 % (45-73); Platelet Count 355 X10*3/uL (160-400); Red Cell Distribution Width 14.9 % (11.0-16.0); White Blood Count 6.4 X10*3/uL (4.8-10.8)
[2021-10-22 09:09] LABS: Alanine Aminotransferase 7 U/L (0-31); Albumin Level 4.3 g/dL (3.5-5.0); Alkaline Phosphatase 74 U/L (39-117); Anion Gap 13 (12-20); Aspartate Amino Transferase 14 U/L (5-31); Bilirubin Total 0.7 mg/dL (0.0-1.0); Blood Urea Nitrogen 32 mg/dL (9-16); Calcium 9.9 mg/dL (8.4-10.2); Carbon Dioxide 26 mmol/L (22-29); Chloride 106 mmol/L (96-108); Estimated Glomerular Filt Rate 43; Glucose Random 100 mg/dL (60-115); Potassium 4.2 mmol/L (3.3-5.1); Sodium 141 mmol/L (135-145); Total Protein 6.9 g/dL (6.5-8.0)
== END 2021-10-22 07:39 | disposition home or self-care (01) ==
LOC: HO.LAB 07:38
PROVIDERS: PCP Nurse Practitioner Family; Visit Provider Nurse Practitioner Family
DX: I10 Essential (primary) hypertension (principal); N28.9 Disorder of kidney and ureter, unspecified
CPT/HCPCS: 36415; 80053; 85025

== ENCOUNTER 2022-03-06 22:53 | Inpatient (IN) | payer MEDICARE, SELFPAY ==
--- NOTE | 2022-03-06 | ECG_ITS ---
Test Reason : chest pain/ abdominal pain Blood Pressure : / mmHG Vent. 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 rate has increased BY [address] now depressed in Anterior leads Referred By: Leeanne Chapman Electronically Signed By:BRETT EDWARD MD
--- NOTE | ~2022-03-06 | XR_ITS ---
EXAMINATION: XR CHEST CLINICAL INFORMATION: Chest pain COMPARISON: Right shoulder 10/10/2021. CT chest 07/27/2021. Chest x-ray 04/22/2021 TECHNIQUE: Frontal portable view of the chest was obtained. 11:19 PM FINDINGS: Marked emphysematous change of lungs. Lungs are clear. No pulmonary vascular congestion. There is no pleural effusion. The heart size is normal. The cardiac and mediastinal contours are normal. There are calcifications of the thoracic aorta. There are multilevel degenerative changes of dorsal spine. Chronic nonunited fracture of the right humeral neck. There is a moderate-sized hiatal hernia. XR/XR chest 1V IMPRESSION: No acute abnormality of chest.
--- NOTE | ~2022-03-06 | XR_ITS ---
EXAMINATION: XR CHEST CLINICAL INFORMATION: Hypoxia COMPARISON: Previous chest x-ray March 06 and chest CTA 03/07/2022 TECHNIQUE: Frontal view of the chest was obtained. FINDINGS: The cardiac silhouette is upper normal in size. There is a esophageal hernia. There is pulmonary venous redistribution, increasing perihilar and lower lobe airspace disease. Findings are questionable for mild CHF. There is no significant pleural effusion. There is no pneumothorax. There are old left rib and right proximal humerus fractures. There are surgical clips in the right axilla. XR/XR chest 1V IMPRESSION: Question mild CHF.
--- NOTE | ~2022-03-06 | CT_ITS ---
EXAMINATION: CT ANGIOGRAM OF THE CHEST; CONTRAST-ENHANCED CT OF THE ABDOMEN AND PELVIS INDICATION: Shortness of breath, abdominal pain COMPARISON: 07/27/2021 TECHNIQUE: 85 ML Omnipaque 350 IV contrast was utilized. Multidetector helical imaging was performed through the chest per PE protocol. Coronal, sagittal, and MIP images of the chest were created. In addition, multidetector helical imaging was performed through the abdomen and pelvis. Coronal and sagittal reformatted images were created at the technologist workstation. DOSE LOWERING TECHNIQUES: This CT examination was performed using dose optimization techniques as appropriate, variously including the following: - Automated exposure control - Adjustment of mA and/or kV according to patient size (this includes techniques or standardized protocols for targeted exams were dose is matched to indication/reason for exam; i.e. extremities or head) - Use of iterative reconstruction technique DLP: 799 mGy-cm FINDINGS: Chest: No filling defects are seen in the main, lobar, or segmental pulmonary arteries to suggest the presence of pulmonary emboli. There is extensive emphysema, most severe in the upper lobes. No regions of consolidation bilaterally. There is a stable 5 mm right lower lobe nodule on image 308/[id number] laterally. No pneumothorax or pleural effusion. Thyroid gland appears diminutive. No mediastinal lymphadenopathy is seen. Cardiac size is within normal limits; no pericardial effusion. Large hiatal hernia appears increased in size from prior. Nonspecific bilateral subcentimeter axillary lymph nodes are noted. Degenerative changes are noted in the spine. Abdomen/Pelvis: The liver is homogeneous in attenuation without intrahepatic biliary ductal dilatation. Cholelithiasis is noted. Multiple scattered calcified granulomas are present. Peripheral focus of hypoattenuation in the spleen posteriorly suggests a region of infarct. The pancreas and adrenal glands are within normal limits. Bilateral nephrograms are symmetric. Bilateral hypoattenuating renal lesions favor cysts, measuring up to approximately 2.6 cm. Some of these demonstrate peripheral and likely septal calcification in the right lower pole. Renal sinus cysts are also noted. No hydronephrosis. No obstructing renal or ureteral calculi are present. The urinary bladder is unremarkable. Patient appears to be status post hysterectomy. There is a short segment of wall thickening in the proximal ascending colon with adjacent stranding extending to the surrounding right lower quadrant. The bowel leading to this segment is relatively increased in caliber compared to the colon beyond this site, concerning for a degree of partial obstruction. This appearance raises concern for an ascending colon mass. There are multiple foci of gas throughout the abdomen most consistent with perforation. Colonic diverticulosis is seen in the sigmoid colon. Small amount of fluid is present predominantly in the pelvis, though also extending into the mid abdomen. There is atherosclerotic calcification along the aorta. Multiple scattered mesenteric and retroperitoneal lymph nodes are seen which are mostly subcentimeter in size, though there is an enlarged node measuring 1.3 cm in short axis dimension (image 53/96). Scattered degenerative changes are present in the spine. CT/CT angio chest PE protocol IMPRESSION: 1. Short segment of wall thickening in the proximal ascending colon, raising suspicion for a mass for which further workup (such as with colonoscopy) is recommended; alternatively, focal colitis could have possibly a similar appearance. Multiple foci of gas throughout the abdomen are consistent with perforation. The colon beyond beyond this site is relatively collapsed, concerning for a degree of associated obstruction. Small amount of free fluid also noted. 2. Enlarged right-sided mesenteric lymph node, concerning for chelsi metastasis. 3. No pulmonary embolus identified. 4. Large hiatal hernia, increased from prior. 5. Multiple bilateral renal cysts, with some associated calcifications in the right lower pole. Follow-up renal protocol CT in 6 months is advised, if not previously performed. 6. Extensive pulmonary emphysema. 7. Cholelithiasis. This critical result was discussed with Dr. Chapman on 03/07/2022 1:09 AM, and it was ascertained that the content and urgency of the report was understood at the time of direct communication.
--- NOTE | ~2022-03-06 | XR_ITS ---
EXAMINATION: XR ABDOMEN KUB CLINICAL INDICATION: Post NG tube placement. COMPARISON: None. TECHNIQUE: AP view of the abdomen. FINDINGS: The NG tube is in mid chest and needs to be advanced at least by 5 to 10 cm. There is a moderate large hiatal hernia. There are multiple mildly dilated small bowel loops. There is bibasilar patchy opacity likely chronic scarring or atelectasis. XR/XR KUB IMPRESSION: Advance NG tube by 10 cm. There is a moderate-sized hiatal hernia. Multiple dilated small bowel loops with gas.
[2022-03-06 23:00] VITALS: PULSE 80; O2SAT 67
[2022-03-06 23:05] VITALS: BP 180/90; PULSE 127; RESP 23; TEMP 36.4; O2SAT 98; BMI 22.1
[2022-03-06 23:10] VITALS: BP 180/90; PULSE 123; RESP 33; TEMP 36.9; O2SAT 94
--- NOTE | 2022-03-06 23:22 | ED.ABDPAIN ---
HPI - Abdominal Pain General Chief Complaint: Abdominal Pain Stated Complaint: abdominal pain and sob Time Seen by Provider: 03/06/22 23:02 History of Present Illness HPI narrative: patient 81-year-old female with a history of COPD. Presents today with having abdominal pain since approximately 14:00. The pain is sharp it is epigastric area does not radiate. No vomiting. No nausea. No change in bowel movement. No diarrhea. No new shortness of breath. No history of alcoh Related Data Home Medications Medication Instructions Recorded Confirmed calcium 500 mg tablet 500 mg PO BID 06/03/20 06/30/21 cholecalciferol (vitamin D3) 25 25 mcg PO DAILY 06/03/20 06/30/21 mcg (1,000 unit) tablet cyanocobalamin (vitamin B-12) 1,000 mcg IM QMONTH 06/03/20 06/30/21 1,000 mcg/mL injection kit (B-12 Compliance) famotidine 20 mg tablet 20 mg PO BID 06/03/20 06/30/21 ferrous sulfate 325 mg (65 mg 325 mg PO DAILY 06/03/20 06/30/21 iron) tablet hydrochlorothiazide 25 mg tablet 25 mg PO DAILY 06/03/20 06/30/21 [id number] tablet 1 tab PO DAILY 06/03/20 06/30/21 tizanidine 4 mg tablet 4 mg PO BEDTIME PRN Pain 06/03/20 06/30/21 omeprazole 20 mg capsule,delayed 1 cap PO QAM 12/03/20 06/30/21 release Previous Rx's Medication Instructions Recorded ibuprofen 800 mg tablet 800 mg PO TID PRN for pain #90 tabs 08/01/21 Allergies Allergy/AdvReac Type Severity Reaction Status Date / Time meperidine [From Demerol] Allergy Mild VOMITING Verified 03/06/22 23:05 Review of Systems Review of Systems No fever no chills or pressure no nausea Yes all other systems are reviewed and are negative PMFSH Past Medical History Attestation statement: The following information was validated with the patient. Medical History Anemia B12 deficiency Breast cancer Chronic restrictive lung disease COPD (chronic obstructive pulmonary disease) Dyspnea Emphysema lung GERD (gastroesophageal reflux disease) Hypertension Osteoporosis Pulmonary nodule Tachycardia Wrist fracture, bilateral Surgical History H/O colectomy H/O hysterectomy with oophorectomy History of appendectomy History of cataract surgery History of lumpectomy of right breast Hx of colonoscopy Hx of esophagogastroduodenoscopy Hx of lumpectomy S/P excision of lipoma Family History Family History Other Vaginal cancer Social History Social History Household Members: None Are you a primary healthcare translator to a significant other at home: No Do you presently have visiting nurse or other home services: No Alcohol intake: current Alcohol intake frequency: holidays/special occasions only Patient Tobacco Use Status: Former Tobacco user Tobacco use type: Cigarette Years Smoked: 25 years Second Hand Smoke Exposure: No Use of substances other than those prescribed or required for medical reasons: No Advance Directives: No Current occupational status: disabled Current occupation: rt handed Physical Exam ED Vital Signs: Vital Signs - 24 hr 03/06/22 23:05 03/06/22 23:10 03/06/22 23:56 Temperature 97.5 F 98.4 F Pulse Rate 127 H 123 H Respiratory Rate 23 H 33 H 26 H Blood Pressure 180/90 H 180/90 H Pulse Oximetry 98 94 Oxygen Delivery Method Nasal Cannula Nasal Cannula Oxygen Flow Rate 2.5 BMI result Body Mass Index 22.1 Appearance: Alert. Oriented X3. No acute distress. Eyes: Pupils equal, round and reactive to light. ENT: Pharynx normal. Neck: Normal inspection. Neck supple. No lymph nodes noted. No crepitus CVS: Normal heart rate and rhythm. Pulses normal. Normal S1 and S2 Respiratory: No respiratory distress. Breath sounds normal. No Wheezing. No rales Abdomen: Soft and nontender. No rigidity. No distention. good BS x4 Skin: Skin warm and dry. Normal skin color. Normal skin turgor. Extremities: No lower extremity edema. Neurovascular intact to all extremities. No Lacerations. No Rash Neuro: Oriented X 3. No motor deficit. No sensory deficit. Moving all extermities. No slurred speech MDM - Abdominal Pain MDM Narrative Medical decision making narrative: Patient presented with having abdominal pain in the epigastric area. Starting at approximately 02:00. Labs are ordered. Lactate is elevated. Given IV fluids 30 cc/kilos. Rocephin started empirically. Will repeat lactate once the fluid is in. CT scan of the abdomen done. CTA of the chest was done with shortness of breath and low oxygen. CTA of the chest was grossly negative. CT of the abdomen with positive for having a perforated ascending colon. Likely the cause of patient's abdominal pain. Additional g of Rocephin given for a total of 2 g of Rocephin. A dose of Flagyl was ordered. Surgeon called immediately. 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 Patient likely will require operation tonight. He is in critical condition. Differential Diagnosis Differential diagnosis: Likely bowel perforation Medical Records Attestation: I reviewed the patient's medical records. Lab Data Attestation: I reviewed the patient's lab results. Result diagrams: 03/07/22 01:55 03/06/22 23:18 Labs: Lab Results 03/06/22 03/06/22 03/06/22 Range/Units 23:18 23:18 23:18 WBC (4.8-10.8) X10*3/uL RBC (4.20-5.50) X10*6/uL Hgb (12.0-16.0) g/dl Hct (37.0-47.0) % MCV (80.0-98.0) fL MCH (27.0-33.0) pg MCHC (31.0-35.0) g/dl RDW (11.0-16.0) % Plt Count (160-400) X10*3/uL MPV (9.4-12.3) fL Immature Gran % (Auto) (0.0-0.4) % Neut % (Auto) (45-73) % Lymph % (Auto) (20-40) % [place] % (Auto) (2-11) % Eos % (Auto) (0-4) % Baso % (Auto) (0-2) % Lymph # (Auto) (1.2-4.9) X10*3/uL [place] # (Auto) (0.1-1.2) X10*3/uL Eos # (Auto) (0.0-0.4) X10*3/uL Baso # (Auto) (0.0-0.2) X10*3/uL Abs Immat Gran (auto) (0.00-0.03) X10*3/uL Absolute Neuts (auto) (2.0-8.3) x10*3/uL Absolute Nucleated RBC (0.0-0.012) X10*3/uL Nucleated RBC % (auto) (0.0-0.2) /100WBC Sodium 137 (135-145) mmol/L Potassium 4.3 (3.3-5.1) mmol/L Chloride 102 (96-108) mmol/L Carbon Dioxide 20 L (22-29) mmol/L Anion Gap 19 (12-20) BUN 17 H (9-16) mg/dL Creatinine 1.17 (0.5-1.4) mg/dL Estim Creat Clear Calc 34.4 Estimated GFR 45 Random Glucose 209 H (60-115) mg/dL Lactic Acid 5.1 H* (0.5-2.0) mmol/L Lactic Acid F/U @ 2Hr (0.5-2.0) mmol/L Calcium 9.7 (8.4-10.2) mg/dL Total Bilirubin 0.9 (0.0-1.0) mg/dL Direct Bilirubin 0.4 (0.0-0.5) mg/dL AST 12 (5-31) U/L ALT 9 (0-31) U/L Alkaline Phosphatase 89 D (39-117) U/L Troponin I High Sens < 3.5 (<3.5-17.0) ng/L B-Natriuretic Peptide 86 (<100) pg/mL Total Protein 7.3 (6.5-8.0) g/dL Albumin 4.5 (3.5-5.0) g/dL Lipase 14 (8-78) U/L Stool Occult Blood (NEGATIVE) Ethyl Alcohol < 10 mg/dL 03/07/22 03/07/22 03/07/22 Range/Units 01:55 01:55 01:56 WBC 6.0 (4.8-10.8) X10*3/uL RBC 4.27 (4.20-5.50) X10*6/uL Hgb 10.4 L (12.0-16.0) g/dl Hct 33.7 L (37.0-47.0) % MCV 78.9 L (80.0-98.0) fL MCH 24.4 L (27.0-33.0) pg MCHC 30.9 L (31.0-35.0) g/dl RDW 17.1 H (11.0-16.0) % Plt Count 399 (160-400) X10*3/uL MPV 9.7 (9.4-12.3) fL Immature Gran % (Auto) 0.2 (0.0-0.4) % Neut % (Auto) 72.4 (45-73) % Lymph % (Auto) 10.7 L (20-40) % [place] % (Auto) 13.5 H (2-11) % Eos % (Auto) 2.7 (0-4) % Baso % (Auto) 0.5 (0-2) % Lymph # (Auto) 0.6 L (1.2-4.9) X10*3/uL [place] # (Auto) 0.8 (0.1-1.2) X10*3/uL Eos # (Auto) 0.2 (0.0-0.4) X10*3/uL Baso # (Auto) 0.0 (0.0-0.2) X10*3/uL Abs Immat Gran (auto) 0.01 (0.00-0.03) X10*3/uL Absolute Neuts (auto) 4.3 (2.0-8.3) x10*3/uL Absolute Nucleated RBC 0.000 (0.0-0.012) X10*3/uL Nucleated RBC % (auto) 0.0 (0.0-0.2) /100WBC Sodium (135-145) mmol/L Potassium (3.3-5.1) mmol/L Chloride (96-108) mmol/L Carbon Dioxide (22-29) mmol/L Anion Gap (12-20) BUN (9-16) mg/dL Creatinine (0.5-1.4) mg/dL Estim Creat Clear Calc Estimated GFR Random Glucose (60-115) mg/dL Lactic Acid (0.5-2.0) mmol/L Lactic Acid F/U @ 2Hr 1.3 (0.5-2.0) mmol/L Calcium (8.4-10.2) mg/dL Total Bilirubin (0.0-1.0) mg/dL Direct Bilirubin (0.0-0.5) mg/dL AST (5-31) U/L ALT (0-31) U/L Alkaline Phosphatase (39-117) U/L Troponin I High Sens (<3.5-17.0) ng/L B-Natriuretic Peptide (<100) pg/mL Total Protein (6.5-8.0) g/dL Albumin (3.5-5.0) g/dL Lipase (8-78) U/L Stool Occult Blood NEGATIVE (NEGATIVE) Ethyl Alcohol mg/dL Critical Care Time Critical Care Time Critical Care Time: Yes Total Critical Care Time: 40 Attestation: I have personally provided 40 minutes of critical care time exclusive of time spent on separately billable procedures. Time includes review of lab data, radiology results, discussion with consultants, and monitoring for potential decompensation. Interventions were performed as documented above Discharge Plan Discharge Clinical Impression: Perforated bowel Patient Disposition: Admitted As Inpatient
[2022-03-06 23:43] LABS: Lactic Acid 5.1 mmol/L (0.5-2.0)
[2022-03-06 23:44] LABS: Alanine Aminotransferase 9 U/L (0-31); Albumin Level 4.5 g/dL (3.5-5.0); Alkaline Phosphatase 89 U/L (39-117); Anion Gap 19 (12-20); Aspartate Amino Transferase 12 U/L (5-31); Bilirubin Direct 0.4 mg/dL (0.0-0.5); Bilirubin Total 0.9 mg/dL (0.0-1.0); Blood Urea Nitrogen 17 mg/dL (9-16); Calcium 9.7 mg/dL (8.4-10.2); Carbon Dioxide 20 mmol/L (22-29); Chloride 102 mmol/L (96-108); Creatinine Clr Calc Pharmacy 34.4; Estimated Glomerular Filt Rate 45; Glucose Random 209 mg/dL (60-115); Lipase 14 U/L (8-78); Potassium 4.3 mmol/L (3.3-5.1); Sodium 137 mmol/L (135-145); Total Protein 7.3 g/dL (6.5-8.0)
[2022-03-06 23:51] LABS: B Type Natriuretic Peptide 86 pg/mL (<100)
[2022-03-06 23:56] VITALS: RESP 26
[2022-03-06] MEDS: 0.9 % Sodium Chloride 1,000 ML 999 ML IV ×2 (23:56→23:58)
[2022-03-06] MEDS: HYDROmorphone HCl 0.5 MG/0.5 ML SYRINGE IVPUSH (23:56)
[2022-03-07] VITALS (28 sets, daily range): BP systolic 90–168; BP diastolic 54–95; PULSE 87–111; RESP 16–30; TEMP 36.3–37.3; O2SAT 90–100
[2022-03-07] MEDS: iohexoL 350 MG/ML 100 ML INFUS..BTL 85 ML IV (00:30)
[2022-03-07 01:21] LABS: Reflex Lactate? Lactic Acid Added
[2022-03-07 01:54] LABS: Ethanol < 10 mg/dL
[2022-03-07 02:01] LABS: MANUAL DIFF FLAG NO
[2022-03-07 02:02] LABS: Troponin-I High Sensitivity < 3.5 ng/L (<3.5-17.0)
[2022-03-07 02:02] LABS: Basophils Percent Auto 0.5 % (0-2); Eosinophils Absolute Auto 0.2 X10*3/uL (0.0-0.4); Eosinophils Percent Auto 2.7 % (0-4); Hematocrit 33.7 % (37.0-47.0); Hemoglobin 10.4 g/dl (12.0-16.0); Imm Gran Abs Auto 0.01 X10*3/uL (0.00-0.03); Imm Gran Pct Auto 0.2 % (0.0-0.4); Lymphocytes Absolute Auto 0.6 X10*3/uL (1.2-4.9); Lymphocytes Percent Auto 10.7 % (20-40); Mean Corpuscular HGB Conc 30.9 g/dl (31.0-35.0); Mean Corpuscular Hemoglobin 24.4 pg (27.0-33.0); Mean Corpuscular Volume 78.9 fL (80.0-98.0); Mean Platelet Volume 9.7 fL (9.4-12.3); Monocytes Absolute Auto 0.8 X10*3/uL (0.1-1.2); Monocytes Percent Auto 13.5 % (2-11); Neutrophils Absolute Auto 4.3 x10*3/uL (2.0-8.3); Neutrophils Percent Auto 72.4 % (45-73); Platelet Count 399 X10*3/uL (160-400); Red Blood Count 4.27 X10*6/uL (4.20-5.50); Red Cell Distribution Width 17.1 % (11.0-16.0)
[2022-03-07 02:04] LABS: OBS Int Ctl Valid YES; OBS1 NEGATIVE (NEGATIVE)
[2022-03-07 02:16] LABS: ~Lactic Acid-LAB USE ONLY 1.3 mmol/L (0.5-2.0)
[2022-03-07] MEDS: HYDROmorphone HCl 0.5 MG/0.5 ML SYRINGE IVPUSH (02:22)
[2022-03-07] MEDS: cefTRIAXone sodium 1 GM in 0.9 % Sodium Chloride 50 ML IV (02:24)
--- NOTE | 2022-03-07 02:24 | PM.HPGS ---
History of Present Illness History of Present Illness Date of Service: 03/13/22 Chief complaint: Perforated Viscus Narrative: Nereida Rowell is a 81 year old female with a long history of COPD, who came to the emergency room earlier this evening because of shortness of breath and abdominal pain. She says that she does get short of breath frequently because of her COPD. She is being seen by Dr. Shirley regularly She started to have abdominal pain usually around 02:00 o'clock in the afternoon yesterday, March 06. She says that this is mostly on the right but was diffuse. She says she has had a lower intensity pain on and off on the abdomen past few weeks She had a CAT scan done in the ER showing pneumoperitoneum, with what appeared to be a very thickened area of the ascending colon with distal collapse, which is the likely lesion of the perforation. There is suggestion of a mass in the area as well or colitis. Her last colonoscopy was in 2015 and this showed diverticulosis. he has had hysterectomy and right breast surgery for cancer in the past. Review of Systems Constitutional: Constitutional: Denies chills and Denies fever(s) Cardiovascular: Cardiovascular: Denies chest pain, Reports dyspnea and Reports dyspnea on exertion Respiratory: Respiratory: Denies cough, Reports dyspnea and Reports dyspnea on exertion Gastrointestinal: Gastrointestinal: Denies hematochezia and Denies change in bowel habits Genitourinary: Genitourinary: Denies hematuria Musculoskeletal: Musculoskeletal: Denies back pain and Denies limited range of motion Neurologic: Denies focal weakness and Denies convulsions Psychiatric: Psychiatric: Denies depression and Denies mood swings [facility] Past Medical History Medical History (Updated 03/13/22 @ 14:34 by Daksha Davis MD) Anemia B12 deficiency Bacteremia due to Gram-negative bacteria Breast cancer Chronic restrictive lung disease COPD (chronic obstructive pulmonary disease) Dyspnea Emphysema lung GERD (gastroesophageal reflux disease) Hypertension Osteoporosis Pulmonary nodule Sepsis Tachycardia Wrist fracture, bilateral Family History Family History Other Vaginal cancer Surgical History Surgical History H/O colectomy H/O hysterectomy with oophorectomy History of appendectomy History of cataract surgery History of lumpectomy of right breast Hx of colonoscopy Hx of esophagogastroduodenoscopy Hx of lumpectomy S/P excision of lipoma Social History Social History Household Members: None Are you a primary manager care to a significant other at home: No Do you presently have visiting nurse or other home services: No Alcohol intake: current Alcohol intake frequency: holidays/special occasions only Patient Tobacco Use Status: Former Tobacco user Tobacco use type: Cigarette Years Smoked: 25 years Second Hand Smoke Exposure: No Use of substances other than those prescribed or required for medical reasons: No Currently Displaying Signs/Symptoms of Drug Intoxication Withdrawal: No Advance Directives: No Patient : No service: No Current occupational status: disabled Current occupation: rt handed Meds Allergies Allergy/AdvReac Type Severity Reaction Status Date / Time meperidine [From Demerol] Allergy Mild VOMITING Verified 03/06/22 23:05 Active Medications: Current Medications Lactated Ringer's (Lr) 1,000 mls @ 100 mls/hr IVCONT .Q10H [facility] Cefotetan Disodium 2 gm/ (Sodium Chloride) 50 mls @ 100 mls/hr IV PREOP ONE Stop: 03/07/22 02:35 Sodium Chloride (0.9 % Sodium Chloride Flush 3 Ml Syringe) 3 ml IVFLUSH QSHIFT [facility] Home Medications Medication Instructions Recorded Confirmed Last Taken Type cholecalciferol (vitamin D3) 25 25 mcg PO DAILY 06/03/20 03/07/22 Unknown History mcg (1,000 unit) tablet cyanocobalamin (vitamin B-12) 1,000 mcg IM QMONTH 06/03/20 03/07/22 Unknown History 1,000 mcg/mL injection kit (B-12 Compliance) ferrous sulfate 325 mg (65 mg 325 mg PO DAILY 06/03/20 03/07/22 Unknown History iron) tablet hydrochlorothiazide 25 mg tablet 25 mg PO DAILY 06/03/20 03/07/22 Unknown History fqsemgrsacru-pwwkzupm-dsydca tablet 1 tab PO DAILY 06/03/20 03/07/22 Unknown History tizanidine 4 mg tablet 4 mg PO BEDTIME PRN Muscle Pain 06/03/20 03/07/22 Unknown History omeprazole 20 mg capsule,delayed 1 cap PO DAILY 12/03/20 03/07/22 Unknown History release calcium carbonate 500 mg calcium 500 mg PO BID 03/07/22 03/07/22 Unknown History (1,250 mg) tablet Physical Exam Vital Signs: Vital Signs: Last Vital Signs Temp 98.4 F 03/06/22 23:10 Pulse 123 H 03/06/22 23:10 Resp 26 H 03/06/22 23:56 BP 180/90 H 03/06/22 23:10 Pulse Ox 94 03/06/22 23:10 O2 Del Method 03/06/22 23:10 O2 Flow Rate 2.5 03/06/22 23:10 Oxygen Flow Rate 3 03/06/22 23:05 BMI result Body Mass Index 22.1 Const: Other: Complaints of pain, short of breath Orientation/consciousness: patient oriented x3 Neck: Neck: Yes no lymphadenopathy Resp: Auscultation: clear to auscultation bilaterally Cardio: Rhythm: regular rhythm GI: Other: Diffusely tender, right more than the left Palpation (GI): Soft to palpation, nontender and no guarding Neuro: General: patient oriented x3 Results Results Labs: Short CBC 03/07/22 Range/Units 01:55 WBC 6.0 (4.8-10.8) X10*3/uL Hgb 10.4 L (12.0-16.0) g/dl Hct 33.7 L (37.0-47.0) % Plt Count 399 (160-400) X10*3/uL [facility] 03/06/22 23:18 Sodium 137 Potassium 4.3 Chloride 102 Carbon Dioxide 20 L BUN 17 H Creatinine 1.17 Calcium 9.7 Liver Function 03/06/22 Range/Units 23:18 Total Bilirubin 0.9 (0.0-1.0) mg/dL Direct Bilirubin 0.4 (0.0-0.5) mg/dL AST 12 (5-31) U/L ALT 9 (0-31) U/L Alkaline Phosphatase 89 D (39-117) U/L Albumin 4.5 (3.5-5.0) g/dL Additional studies: Laboratory Results WBC 6.0 X10*3/uL (4.8-10.8) 03/07/22 01:55 RBC 4.27 X10*6/uL (4.20-5.50) 03/07/22 01:55 Hgb 10.4 g/dl (12.0-16.0) L 03/07/22 01:55 Hct 33.7 % (37.0-47.0) L 03/07/22 01:55 MCV 78.9 fL (80.0-98.0) L 03/07/22 01:55 MCH 24.4 pg (27.0-33.0) L 03/07/22 01:55 MCHC 30.9 g/dl (31.0-35.0) L 03/07/22 01:55 RDW 17.1 % (11.0-16.0) H 03/07/22 01:55 Plt Count 399 X10*3/uL (160-400) 03/07/22 01:55 MPV 9.7 fL (9.4-12.3) 03/07/22 01:55 Immature Gran % (Auto) 0.2 % (0.0-0.4) 03/07/22 01:55 Neut % (Auto) 72.4 % (45-73) 03/07/22 01:55 Lymph % (Auto) 10.7 % (20-40) L 03/07/22 01:55 [place] % (Auto) 13.5 % (2-11) H 03/07/22 01:55 Eos % (Auto) 2.7 % (0-4) 03/07/22 01:55 Baso % (Auto) 0.5 % (0-2) 03/07/22 01:55 Lymph # (Auto) 0.6 X10*3/uL (1.2-4.9) L 03/07/22 01:55 [place] # (Auto) 0.8 X10*3/uL (0.1-1.2) 03/07/22 01:55 Eos # (Auto) 0.2 X10*3/uL (0.0-0.4) 03/07/22 01:55 Baso # (Auto) 0.0 X10*3/uL (0.0-0.2) 03/07/22 01:55 Abs Immat Gran (auto) 0.01 X10*3/uL (0.00-0.03) 03/07/22 01:55 Absolute Neuts (auto) 4.3 x10*3/uL (2.0-8.3) 03/07/22 01:55 Absolute Nucleated RBC 0.000 X10*3/uL (0.0-0.012) 03/07/22 01:55 Nucleated RBC % (auto) 0.0 /100WBC (0.0-0.2) 03/07/22 01:55 Sodium 137 mmol/L (135-145) 03/06/22 23:18 Potassium 4.3 mmol/L (3.3-5.1) 03/06/22 23:18 Chloride 102 mmol/L (96-108) 03/06/22 23:18 Carbon Dioxide 20 mmol/L (22-29) L 03/06/22 23:18 Anion Gap 19 (12-20) 03/06/22 23:18 BUN 17 mg/dL (9-16) H 03/06/22 23:18 Creatinine 1.17 mg/dL (0.5-1.4) 03/06/22 23:18 Estim Creat Clear Calc 34.4 03/06/22 23:18 Estimated GFR 45 03/06/22 23:18 Random Glucose 209 mg/dL (60-115) H 03/06/22 23:18 Lactic Acid 5.1 mmol/L (0.5-2.0) H* 03/06/22 23:18 Lactic Acid F/U @ 2Hr 1.3 mmol/L (0.5-2.0) 03/07/22 01:55 Calcium 9.7 mg/dL (8.4-10.2) 03/06/22 23:18 Total Bilirubin 0.9 mg/dL (0.0-1.0) 03/06/22 23:18 Direct Bilirubin 0.4 mg/dL (0.0-0.5) 03/06/22 23:18 AST 12 U/L (5-31) 03/06/22 23:18 ALT 9 U/L (0-31) 03/06/22 23:18 Alkaline Phosphatase 89 U/L (39-117) D 03/06/22 23:18 Troponin I High Sens < 3.5 ng/L (<3.5-17.0) 03/06/22 23:18 B-Natriuretic Peptide 86 pg/mL (<100) 03/06/22 23:18 Total Protein 7.3 g/dL (6.5-8.0) 03/06/22 23:18 Albumin 4.5 g/dL (3.5-5.0) 03/06/22 23:18 Lipase 14 U/L (8-78) 03/06/22 23:18 Stool Occult Blood NEGATIVE (NEGATIVE) 03/07/22 01:56 Ethyl Alcohol < 10 mg/dL 03/06/22 23:18 Impressions Chest X-Ray 03/06/22 23:27 IMPRESSION: No acute abnormality of chest. Abdomen/Pelvis CT 03/07/22 00:25 IMPRESSION: 1. Short segment of wall thickening in the proximal ascending colon, raising suspicion for a mass for which further workup (such as with colonoscopy) is recommended; alternatively, focal colitis could have possibly a similar appearance. Multiple foci of gas throughout the abdomen are consistent with perforation. The colon beyond beyond this site is relatively collapsed, concerning for a degree of associated obstruction. Small amount of free fluid also noted. 2. Enlarged right-sided mesenteric lymph node, concerning for chelsi metastasis. 3. No pulmonary embolus identified. 4. Large hiatal hernia, increased from prior. 5. Multiple bilateral renal cysts, with some associated calcifications in the right lower pole. Follow-up renal protocol CT in 6 months is advised, if not previously performed. 6. Extensive pulmonary emphysema. 7. Cholelithiasis. This critical result was discussed with Dr. Chapman on 03/07/2022 1:09 AM, and it was ascertained that the content and urgency of the report was understood at the time of direct communication. Chest CTA 03/07/22 00:25 IMPRESSION: 1. Short segment of wall thickening in the proximal ascending colon, raising suspicion for a mass for which further workup (such as with colonoscopy) is recommended; alternatively, focal colitis could have possibly a similar appearance. Multiple foci of gas throughout the abdomen are consistent with perforation. The colon beyond beyond this site is relatively collapsed, concerning for a degree of associated obstruction. Small amount of free fluid also noted. 2. Enlarged right-sided mesenteric lymph node, concerning for chelsi metastasis. 3. No pulmonary embolus identified. 4. Large hiatal hernia, increased from prior. 5. Multiple bilateral renal cysts, with some associated calcifications in the right lower pole. Follow-up renal protocol CT in 6 months is advised, if not previously performed. 6. Extensive pulmonary emphysema. 7. Cholelithiasis. This critical result was discussed with Dr. Chapman on 03/07/2022 1:09 AM, and it was ascertained that the content and urgency of the report was understood at the time of direct communication. Assessment and Plan (1) Perforated bowel: Status: Acute She came in with diffuse abdominal pain. Her CAT scan shows pneumoperitoneum with thickening of the proximal right colon suggestive of colitis versus a mass. This is also the likely source of her pneumoperitoneum. I therefore explained to her that she will need to have emergency laparotomy. Reviewed with her the technique of this procedure. I discussed the possibility of her requiring bowel resection and a stoma. I reviewed the risks including but not limited to bleeding, infections, injury to other organs, respiratory failure, [place], pneumonia, even . She has given consent for the procedure. She has multiple medical problems including advanced COPD and may require ventilatory supportt postoperatively. She will most likely need to be in the ICU postop and may be critically ill thereafter. I had a long discussion with her health care proxy Nora Cook (cousin, ) of the above. Quality Stroke Does the patient have a stroke diagnosis?: No VTE Prior VTE?: No VTE Risk Level:: Medical - moderate - high VTE Device Contraindication: N/A - Device Ordered VTE Drug Contraindication: N/A - Med Ordered Procedures Date of Service Date of Service: 03/07/22
[2022-03-07] MEDS: metroNIDAZOLE/NS 500 MG/100 ML PIGGYBACK 100 MG IV (02:45)
[2022-03-07 02:51] LABS: COVID-19 Test Negative (Negative); IDNOW Serial# 16C4AD1C
--- NOTE | 2022-03-07 02:58 | PC.NURSE ---
RN-RN report given.
--- NOTE | 2022-03-07 03:07 | P.CONAN_ITS ---
[facility] Active Problems Active Problems: All Active Problems (Updated 03/07/22 @ 01:19 by Leeanne Chapman MD) Perforated bowel (Acute) Chronic restrictive lung disease (Acute) Emphysema lung (Acute) Pulmonary nodule (Acute) COPD (chronic obstructive pulmonary disease) (Acute) Tachycardia (Acute) Blood D-dimer assay positive (Acute) Dyspnea (Acute) Fracture of proximal end of right humerus (Acute) Breast cancer (Acute) Anemia (Acute) Past Medical History Medical History Anemia B12 deficiency Breast cancer Chronic restrictive lung disease COPD (chronic obstructive pulmonary disease) Dyspnea Emphysema lung GERD (gastroesophageal reflux disease) Hypertension Osteoporosis Pulmonary nodule Tachycardia Wrist fracture, bilateral Family History Family History Other Vaginal cancer Family history of problems with anesthesia: No Surgical History Surgical History H/O colectomy H/O hysterectomy with oophorectomy History of appendectomy History of cataract surgery History of lumpectomy of right breast Hx of colonoscopy Hx of esophagogastroduodenoscopy Hx of lumpectomy S/P excision of lipoma History of Problems with Anesthesia: No Social History Social History Household Members: None Are you a primary healthcare representative to a significant other at home: No Do you presently have visiting nurse or other home services: No Alcohol intake: current Alcohol intake frequency: holidays/special occasions only Patient Tobacco Use Status: Former Tobacco user Tobacco use type: Cigarette Years Smoked: 25 years Second Hand Smoke Exposure: No Use of substances other than those prescribed or required for medical reasons: No Advance Directives: No Current occupational status: disabled Current occupation: rt handed Meds Allergies Allergy/AdvReac Type Severity Reaction Status Date / Time meperidine [From Demerol] Allergy Mild VOMITING Verified 03/06/22 23:05 Active Medications: Current Medications Lactated Ringer's (Lr) 1,000 mls @ 100 mls/hr IVCONT .Q10H [facility] Sodium Chloride (0.9 % Sodium Chloride Flush 3 Ml Syringe) 3 ml IVFLUSH QSHIFT [facility] Home Medications Medication Instructions Recorded Confirmed Last Taken Type calcium 500 mg tablet 500 mg PO BID 06/03/20 06/30/21 Unknown History cholecalciferol (vitamin D3) 25 25 mcg PO DAILY 06/03/20 06/30/21 Unknown History mcg (1,000 unit) tablet cyanocobalamin (vitamin B-12) 1,000 mcg IM QMONTH 06/03/20 06/30/21 Unknown History 1,000 mcg/mL injection kit (B-12 Compliance) famotidine 20 mg tablet 20 mg PO BID 06/03/20 06/30/21 Unknown History ferrous sulfate 325 mg (65 mg 325 mg PO DAILY 06/03/20 06/30/21 Unknown History iron) tablet hydrochlorothiazide 25 mg tablet 25 mg PO DAILY 06/03/20 06/30/21 Unknown History zjjgieqgcoyb-jludwlvi-njlzrs tablet 1 tab PO DAILY 06/03/20 06/30/21 Unknown History tizanidine 4 mg tablet 4 mg PO BEDTIME PRN Pain 06/03/20 06/30/21 Unknown History omeprazole 20 mg capsule,delayed 1 cap PO QAM 12/03/20 06/30/21 Unknown History release Exam Exam Date and Time: March 07, 2022 0307 Height,Weight and Vital Signs: Height 5 ft 5 in Weight 60.328 kg Last Vital Signs Temp 98.4 F 03/06/22 23:10 Pulse 123 H 03/06/22 23:10 Resp 26 H 03/07/22 02:22 BP 180/90 H 03/06/22 23:10 Pulse Ox 94 03/06/22 23:10 O2 Del Method 03/06/22 23:10 O2 Flow Rate 2.5 03/06/22 23:10 Oxygen Flow Rate 3 03/06/22 23:05 Pertinent Lab Results Pertinent Lab Results: Laboratory Tests 03/06/22 03/06/22 03/06/22 23:18 23:18 23:18 WBC RBC Hgb Hct MCV MCH MCHC RDW Plt Count MPV Immature Gran % (Auto) Neut % (Auto) Lymph % (Auto) [place] % (Auto) Eos % (Auto) Baso % (Auto) Lymph # (Auto) [place] # (Auto) Eos # (Auto) Baso # (Auto) Abs Immat Gran (auto) Absolute Neuts (auto) Absolute Nucleated RBC Nucleated RBC % (auto) Sodium 137 Potassium 4.3 Chloride 102 Carbon Dioxide 20 L Anion Gap 19 BUN 17 H Creatinine 1.17 Estim Creat Clear Calc 34.4 Estimated GFR 45 Random Glucose 209 H Lactic Acid 5.1 H* Lactic Acid F/U @ 2Hr Calcium 9.7 Total Bilirubin 0.9 Direct Bilirubin 0.4 AST 12 ALT 9 Alkaline Phosphatase 89 D Troponin I High Sens < 3.5 B-Natriuretic Peptide 86 Total Protein 7.3 Albumin 4.5 Lipase 14 Stool Occult Blood Ethyl Alcohol < 10 COVID-19 ([facility]) COVID-19 [employer] Blood Type Antibody Screen 03/07/22 03/07/22 03/07/22 01:55 01:55 01:56 WBC 6.0 RBC 4.27 Hgb 10.4 L Hct 33.7 L MCV 78.9 L MCH 24.4 L MCHC 30.9 L RDW 17.1 H Plt Count 399 MPV 9.7 Immature Gran % (Auto) 0.2 Neut % (Auto) 72.4 Lymph % (Auto) 10.7 L [place] % (Auto) 13.5 H Eos % (Auto) 2.7 Baso % (Auto) 0.5 Lymph # (Auto) 0.6 L [place] # (Auto) 0.8 Eos # (Auto) 0.2 Baso # (Auto) 0.0 Abs Immat Gran (auto) 0.01 Absolute Neuts (auto) 4.3 Absolute Nucleated RBC 0.000 Nucleated RBC % (auto) 0.0 Sodium Potassium Chloride Carbon Dioxide Anion Gap BUN Creatinine Estim Creat Clear Calc Estimated GFR Random Glucose Lactic Acid Lactic Acid F/U @ 2Hr 1.3 Calcium Total Bilirubin Direct Bilirubin AST ALT Alkaline Phosphatase Troponin I High Sens B-Natriuretic Peptide Total Protein Albumin Lipase Stool Occult Blood NEGATIVE Ethyl Alcohol COVID-19 ([facility]) COVID-19 [employer] [facility] Blood Type Antibody Screen 03/07/22 03/07/22 02:17 02:32 WBC RBC Hgb Hct MCV MCH MCHC RDW Plt Count MPV Immature Gran % (Auto) Neut % (Auto) Lymph % (Auto) [place] % (Auto) Eos % (Auto) Baso % (Auto) Lymph # (Auto) [place] # (Auto) Eos # (Auto) Baso # (Auto) Abs Immat Gran (auto) Absolute Neuts (auto) Absolute Nucleated RBC Nucleated RBC % (auto) Sodium Potassium Chloride Carbon Dioxide Anion Gap BUN Creatinine Estim Creat Clear Calc Estimated GFR Random Glucose Lactic Acid Lactic Acid F/U @ 2Hr Calcium Total Bilirubin Direct Bilirubin AST ALT Alkaline Phosphatase Troponin I High Sens B-Natriuretic Peptide Total Protein Albumin Lipase Stool Occult Blood Ethyl Alcohol COVID-19 ([facility]) Negative COVID-19 Clin Com See Note Blood Type O Positive Antibody Screen NEGATIVE Airway Mallampati Class: III TM Dist: >3cm Neck ROM: Full Loose/Missing/Broken Teeth: Yes, Upper and Lower Assessment and Plan Assessment Anesthesia Assessment: Anesthesia Plan Discussed and Chart Reviewed Final Anesthetic Review Family History of Problems with Anesthesia: No History of Problems with Anesthesia: No NPO: Yes ASA Class: IV and Emergency Final Preanesthetic Review: No Changes in Pt Med Stat, Meds/Allgs Chart Reviewed, Consent Obtained/Reviewed and Anes Risks/Benef Reviewed Patient Risk: High Procedure Risk: High Anesthetic Plan Anesthetic Plan: GA Disposition: Standard PACU
--- NOTE | 2022-03-07 03:16 | PC.NURSE ---
16F ambrose catheter placed, pt tolerated well. RN-RN report given to surgery.
[2022-03-07 03:44] LABS: Appearance Urine CLEAR; Color Urine YELLOW; Glucose Urine UA NEG (NEG); Leukocyte Esterase Urine 1+ (NEG); Nitrite Urine NEG (NEG); PH 5.5 (5.0-8.0); UACC Culture Trigger YES; Urine Blood 1+ (NEG); Urine Ketones NEG (NEG); Urine Protein TRACE MG/DL (NEG-TRACE)
[2022-03-07 03:52] LABS: Bacteria Urine 3+ /LPF; Mucus Urine 1+ /LPF; Squamous Epithelial Cell Urine TRACE /LPF; UACC CULT YES
[2022-03-07 04:03] LABS: Amphetamine Screen Urine Not Detected (Not Detect); Barbiturates, Urine Not Detected (Not Detect); Benzodiazepines Screen Urine Not Detected (Not Detect); Cannabinoid Screen Urine Not Detected (Not Detect); Cocaine Screen Urine Not Detected (Not Detect); Fentanyl, urine Not Detected (Not Detect); Opiate Screen Urine Not Detected (Not Detect); Phencyclidine Screen Urine Not Detected (Not Detect)
--- NOTE | 2022-03-07 05:48 | P.OP_ITS ---
Operative Note Operative Note Date of Service: 03/07/22 Narrative: Preop diagnosis: Perforated viscus Postop diagnosis: 1. Perforated cecum with fecal spillage 2. right colon mass, ascending colon, causing obstruction Procedure: Laparotomy, right colon resection, end-ileostomy, mucous fistula Surgeon: Marty Cortez MD The patient is at 81-year-old female, with long history of COPD, who came into the ER via ambulance because of abdominal pain last night. CT scan showed pneumoperitoneum. I explained to her the technique of laparotomy, likely bowel resection stoma. She was aware of the risks, benefits, and alternatives. She had given consent Her healthcare proxy Nora, was involved with the discussion The patient was brought to the operating room and placed supine on the table under general anesthesia via endotracheal tube. Zarco catheter had been inserted. An NG tube was also placed because of her vomiting. The abdomen was prepped and draped in the usual sterile fashion. A surgical time-out was done. The patient received Rocephin and Flagyl just prior to to the ER. A midline incision was made on the skin using blade 10. This was carried down with electrocautery through the full-thickness of the skin and subcutaneous fat. The fascia was incised. The peritoneum was entered. The peritoneal fluid was immediately seen. I applied Bookwalter retractors to allow good exposure. The cecum was visualized. There was noted to be markedly distended with surrounding fecal spillage, fibrinous coating as well as marked erythema. There was note of purulent fluid as well surrounding the cecum. There was note of a obvious perforation on the cecal wall where the stool was seen to be coming out . Cultures were taken. The adjacent small bowel loops were also markedly erythematous. There was note of spillage of stool on the this and the right quadrant. I proceeded to apply a running stitch to close the perforation temporarily using Dexon 2-0. this allowed good control of this fecal spillage at this point . I packed all the small bowel loops away from the right lower quadrant for better exposure. Palpation of the right colon revealed a mass in the ascending colon near the hepatic flexure causing an obstruction of the cecum and the proximal colon. I proceeded to mobilize the right colon starting from the cecum using electrocautery. I continued the mobilization along the white line of [place]. A gain there was note of significant peritonitis surrounding this area. Dissection was therefore a little difficult. I proceeded to continue to dissect around the hepatic flexure to free this up. I was able to go achieved good mobilization of the TI right colon and the cecum. I was able to define my planned areas of transection. I chose a point in the terminal ileum. I created a mesenteric window and used the TRISH 60 mm stapler to transect this. I also chose my point of resection and the hepatic flexure at the proximal transverse colon. I created a mesenteric window and position the TRISH 60 mm stapler across this to divide this I then proceeded to use the LigaSure to divide the attached mesentery. I alternated division of the mesentery between and distal until I able to narrow the mesentery down to the attached ileocolic pedicle. Applied a right angle clamp across the pedicle. I doubly ligated this using a Dexon 2-0 tie. There was note of good amount stasis along the entire divided mesentery. I then proceeded to repair the distal ileum as may end ileostomy. These appeared to have good length to reach past the abdominal wall. I excised the discoid piece of skin on the right lower quadrant that had been earlier marked. I used electrocautery through the subcutaneous fat and the anterior rectus sheath. I did muscle separation of the rectus. I created my stoma opening and pulled up the staple line to this opening. I matured the stoma by excising the staple line and applying a circular roll of full-thickness Dexon 3-0 sutures to the subdermal layer of the wall of the ileum. I then created my mucous fistula as well. Again excised small discoid piece of skin and the right upper quadrant using blade 10. I used electrocautery to divide across the subcutaneous fat and the anterior rectus sheath and created by stomal opening for the mucous fistula. I pulled up the staple line of the transverse colon through this opening. I opened the apex of the staple line using Metzenbaum scissors to create my mucous fistula and secured this to the subdermal layer with full-thickness stone 3-0 sutures to the full-thickness of the wall of the transverse colon. I observed for hemostasis with the peritoneal cavity. We changed gloves at this point. I copiously irrigated until the irrigant fluid was clear I re-observed for hemostasis. Once hemostasis was ensured, I proceeded to examine the rest of the surrounding small bowel loops. There was note of erythema secondary to the peritonitis involving the adjacent small bowel loops but there was no other pathology seen . I therefore proceeded to examine both the ileostomy and mucous fistula. Both of these appear to be viable and nonischemic. I proceeded to close the fascia with a running PDS 1 stitch. I closed the skin with skin brown. I positioned iodoform packing in the subcutaneous layer in between the brown. The procedure was then completed. The patient tolerated the procedure well. There were no complications noted. Initial and final counts of sponges and instruments were correct. Estimated blood loss was about 75 cc. The patient was extubated without difficulty and transferred to the recovery room with stable vital signs. Alternated from the proximal
--- NOTE | 2022-03-07 07:04 | MHC.CM.PN ---
Attempted to meet with patient in regards to discharge planning. Patient currently in the OR. Will attempt to meet again. Continue to monitor for d/c needs.
[2022-03-07] MEDS: fentaNYL citrate/PF 100 MCG/2 ML VIAL 25 MCG IVPUSH ×2 (07:25→10:15)
[2022-03-07] MEDS: Piperacillin Sodium/Tazobactam 3.375 GM in 0.9 % Sodium Chloride 50 ML IV ×3 (07:31→20:02)
[2022-03-07] MEDS: Lactated Ringers 1,000 ML 100 ML IVCONT ×2 (08:11→13:05)
--- NOTE | 2022-03-07 12:31 | P.CONIM_ITS ---
History of Present Illness Data of Consult Service Date: 03/07/22 Primary Care Provider: Kriss De Leon NP [facility] Reason for consult: Medical consult An 81 years old lady with PMH of COPD, HTN, GERD among others who presents to the hospital with shortness of breath and abdominal pain. Found to have an evidence of perforated bowels requiring urgent surgical intervention. She reports after the surgery feeling much better but still reporting pain. Her medical problems are fairly under control at home. Hospitalist team asked to evaluate the patient during the hospital stay. Review of Systems Review of Systems: No fever, chills or weakness No chest pain, palpitation Improved shortness of breath or coughing Abdominal pain after surgery No urinary symptoms No any rash or wounds PMFSH Medical History Anemia B12 deficiency Breast cancer Chronic restrictive lung disease COPD (chronic obstructive pulmonary disease) Dyspnea Emphysema lung GERD (gastroesophageal reflux disease) Hypertension Osteoporosis Pulmonary nodule Tachycardia Wrist fracture, bilateral Family History Other Vaginal cancer Surgical History H/O colectomy H/O hysterectomy with oophorectomy History of appendectomy History of cataract surgery History of lumpectomy of right breast Hx of colonoscopy Hx of esophagogastroduodenoscopy Hx of lumpectomy S/P excision of lipoma Social History Household Members: None Are you a primary district manager primary care sales to a significant other at home: No Do you presently have visiting nurse or other home services: No Alcohol intake: current Alcohol intake frequency: holidays/special occasions only Patient Tobacco Use Status: Former Tobacco user Tobacco use type: Cigarette Years Smoked: 25 years Second Hand Smoke Exposure: No Use of substances other than those prescribed or required for medical reasons: No Advance Directives: No Current occupational status: disabled Current occupation: rt handed Meds Allergies Allergy/AdvReac Type Severity Reaction Status Date / Time meperidine [From Demerol] Allergy Mild VOMITING Verified 03/06/22 23:05 Active Medications: Current Medications Albuterol Sulfate (Albuterol Sulfate (0.042%) 1.25 Mg/3 Ml Vial.Neb) 1.25 mg INHALE RQ4H PRN PRN Reason: Wheezing Fentanyl (Fentanyl Citrate/Pf 100 Mcg/2 Ml Vial) 25 mcg IVPUSH Q5M PRN; Protocol PRN Reason: Pain, Moderate (Pain Scale 4-6 Last Admin: 03/07/22 10:15 Dose: 25 mcg Heparin Sodium (Porcine) (Heparin Sodium,Porcine 5,000 Unit/Ml Vial) 5,000 unit SUBCUT Q12H [facility] Lactated Ringer's (Lr) 1,000 mls @ 100 mls/hr IVCONT .Q10H [facility] Last Admin: 03/07/22 08:11 Dose: 100 mls/hr Piperacillin Sod/Tazobactam (Sod 3.375 gm/ Sodium Chloride) 50 mls @ 100 mls/hr IV Q6H [facility] Last Admin: 03/07/22 07:31 Dose: 100 mls/hr Acetaminophen (Ofirmev) 1,000 mg in 100 mls @ 400 mls/hr IV Q6H [facility] Stop: 03/07/22 23:59 Last Admin: 03/07/22 07:24 Dose: 400 mls/hr Morphine Sulfate (Morphine Sulfate 4 Mg/Ml Cartridge) 3 mg IVPUSH Q3H PRN; Protocol PRN Reason: Pain, Severe (Pain Scale 7-10) Ondansetron HCl (Ondansetron Hcl 4 Mg/2 Ml Vial) 4 mg IVPUSH ONCE PRN PRN Reason: Nausea and Vomiting Pantoprazole Sodium (Pantoprazole Sodium 40 Mg/10 Ml Vial) 40 mg IVPUSH DAILY@0630 [facility] Pharmacy Consult (Consult Rx Perform Med Rec) 1 each MISCELLANE ONCE PRN PRN Reason: Consult order Sodium Chloride (0.9 % Sodium Chloride Flush 3 Ml Syringe) 3 ml IVFLUSH [facility] Sodium Chloride (0.9 % Sodium Chloride Flush 3 Ml Syringe) 3 ml IVFLUSH [facility] Home Medications Medication Instructions Recorded Confirmed Last Taken Type calcium 500 mg tablet 500 mg PO BID 06/03/20 06/30/21 Unknown History cholecalciferol (vitamin D3) 25 25 mcg PO DAILY 06/03/20 06/30/21 Unknown History mcg (1,000 unit) tablet cyanocobalamin (vitamin B-12) 1,000 mcg IM QMONTH 06/03/20 06/30/21 Unknown History 1,000 mcg/mL injection kit (B-12 Compliance) famotidine 20 mg tablet 20 mg PO BID 06/03/20 06/30/21 Unknown History ferrous sulfate 325 mg (65 mg 325 mg PO DAILY 06/03/20 06/30/21 Unknown History iron) tablet hydrochlorothiazide 25 mg tablet 25 mg PO DAILY 06/03/20 06/30/21 Unknown History emdmitoexgmh-mzrnqeep-njsqve tablet 1 tab PO DAILY 06/03/20 06/30/21 Unknown History tizanidine 4 mg tablet 4 mg PO BEDTIME PRN Pain 06/03/20 06/30/21 Unknown History omeprazole 20 mg capsule,delayed 1 cap PO QAM 12/03/20 06/30/21 Unknown History release Physical Exam Vital Signs and Narrative: Vital Signs: Last Vital Signs Temp 97.3 F 03/07/22 11:30 Pulse 95 03/07/22 11:30 Resp 16 03/07/22 11:30 BP 103/60 03/07/22 11:30 Pulse Ox 96 03/07/22 11:30 O2 Del Method 03/07/22 11:30 O2 Flow Rate 3 03/07/22 11:30 Oxygen Flow Rate 3 03/06/22 23:05 BMI result Body Mass Index 22.1 Const: Other: Constitutional : Alert, oriented, not in distress Neck : Normal inspection, Supple Cardiovascular : RRR, no JVP, no lower extremity edema Respiratory : fair bilateral air entry, no crackles, wheezes or rhonchi, on oxygen supplement Gastrointestinal: soft, lax, Normal bowel sounds, tenderness around the surgical site Skin : Warm, Dry Neurological : Alert & oriented x3, No focal deficit , CN 2-12 within normal Results Labs CBC and Chem 7: 03/07/22 01:55 03/06/22 23:18 Labs: Laboratory Results - last 24 hr 03/06/22 03/06/22 03/06/22 23:18 23:18 23:18 MCV MCH MCHC RDW Plt Count MPV Immature Gran % (Auto) Neut % (Auto) Lymph % (Auto) [place] % (Auto) Eos % (Auto) Baso % (Auto) Lymph # (Auto) [place] # (Auto) Eos # (Auto) Baso # (Auto) Abs Immat Gran (auto) Absolute Neuts (auto) Absolute Nucleated RBC Nucleated RBC % (auto) Anion Gap 19 Estim Creat Clear Calc 34.4 Estimated GFR 45 Random Glucose 209 H Lactic Acid 5.1 H* Lactic Acid F/U @ 2Hr Calcium 9.7 Total Bilirubin 0.9 Direct Bilirubin 0.4 AST 12 ALT 9 Alkaline Phosphatase 89 D Troponin I High Sens < 3.5 B-Natriuretic Peptide 86 Total Protein 7.3 Albumin 4.5 Lipase 14 Urine Color Urine Appearance Urine pH Ur Specific [place] Urine Protein Urine Glucose (UA) Urine Ketones Urine Blood Urine Nitrite Ur Leukocyte Esterase Urine RBC Urine WBC Ur Squamous Epith Cells Urine Bacteria Hyaline Casts Urine Mucus Stool Occult Blood Urine Opiates Screen Urine Fentanyl Screen Ur Barbiturates Screen Ur Phencyclidine Scrn Ur Amphetamines Screen U Benzodiazepines Scrn Urine Cocaine Screen U Marijuana (THC) Screen Ethyl Alcohol < 10 COVID-19 (SOFIYA) COVID-19 Clin Com Blood Type Antibody Screen 03/07/22 03/07/22 03/07/22 01:55 01:55 01:56 MCV 78.9 L MCH 24.4 L MCHC 30.9 L RDW 17.1 H Plt Count 399 MPV 9.7 Immature Gran % (Auto) 0.2 Neut % (Auto) 72.4 Lymph % (Auto) 10.7 L [place] % (Auto) 13.5 H Eos % (Auto) 2.7 Baso % (Auto) 0.5 Lymph # (Auto) 0.6 L [place] # (Auto) 0.8 Eos # (Auto) 0.2 Baso # (Auto) 0.0 Abs Immat Gran (auto) 0.01 Absolute Neuts (auto) 4.3 Absolute Nucleated RBC 0.000 Nucleated RBC % (auto) 0.0 Anion Gap Estim Creat Clear Calc Estimated GFR Random Glucose Lactic Acid Lactic Acid F/U @ 2Hr 1.3 Calcium Total Bilirubin Direct Bilirubin AST ALT Alkaline Phosphatase Troponin I High Sens B-Natriuretic Peptide Total Protein Albumin Lipase Urine Color Urine Appearance Urine pH Ur Specific [place] Urine Protein Urine Glucose (UA) Urine Ketones Urine Blood Urine Nitrite Ur Leukocyte Esterase Urine RBC Urine WBC Ur Squamous Epith Cells Urine Bacteria Hyaline Casts Urine Mucus Stool Occult Blood NEGATIVE Urine Opiates Screen Urine Fentanyl Screen Ur Barbiturates Screen Ur Phencyclidine Scrn Ur Amphetamines Screen U Benzodiazepines Scrn Urine Cocaine Screen U Marijuana (THC) Screen Ethyl Alcohol COVID-19 ([facility]FIYA) COVID-19 Clin Com Blood Type Antibody Screen 03/07/22 03/07/22 03/07/22 02:17 02:32 03:33 MCV MCH MCHC RDW Plt Count MPV Immature Gran % (Auto) Neut % (Auto) Lymph % (Auto) [place] % (Auto) Eos % (Auto) Baso % (Auto) Lymph # (Auto) [place] # (Auto) Eos # (Auto) Baso # (Auto) Abs Immat Gran (auto) Absolute Neuts (auto) Absolute Nucleated RBC Nucleated RBC % (auto) Anion Gap Estim Creat Clear Calc Estimated GFR Random Glucose Lactic Acid Lactic Acid F/U @ 2Hr Calcium Total Bilirubin Direct Bilirubin AST ALT Alkaline Phosphatase Troponin I High Sens B-Natriuretic Peptide Total Protein Albumin Lipase Urine Color YELLOW Urine Appearance CLEAR Urine pH 5.5 Ur Specific [place] 1.010 Urine Protein TRACE Urine Glucose (UA) NEG Urine Ketones NEG Urine Blood 1+ H Urine Nitrite NEG Ur Leukocyte Esterase 1+ H Urine RBC 1-4 Urine WBC 5-9 H Ur Squamous Epith Cells TRACE Urine Bacteria 3+ Hyaline Casts 1-4 Urine Mucus 1+ Stool Occult Blood Urine Opiates Screen Urine Fentanyl Screen Ur Barbiturates Screen Ur Phencyclidine Scrn Ur Amphetamines Screen U Benzodiazepines Scrn Urine Cocaine Screen U Marijuana (THC) Screen Ethyl Alcohol COVID-19 (SOFIYA) Negative COVID-19 Clin Com See Note Blood Type O Positive Antibody Screen NEGATIVE 03/07/22 03:33 MCV MCH MCHC RDW Plt Count MPV Immature Gran % (Auto) Neut % (Auto) Lymph % (Auto) [place] % (Auto) Eos % (Auto) Baso % (Auto) Lymph # (Auto) [place] # (Auto) Eos # (Auto) Baso # (Auto) Abs Immat Gran (auto) Absolute Neuts (auto) Absolute Nucleated RBC Nucleated RBC % (auto) Anion Gap Estim Creat Clear Calc Estimated GFR Random Glucose Lactic Acid Lactic Acid F/U @ 2Hr Calcium Total Bilirubin Direct Bilirubin AST ALT Alkaline Phosphatase Troponin I High Sens B-Natriuretic Peptide Total Protein Albumin Lipase Urine Color Urine Appearance Urine pH Ur Specific [place] Urine Protein Urine Glucose (UA) Urine Ketones Urine Blood Urine Nitrite Ur Leukocyte Esterase Urine RBC Urine WBC Ur Squamous Epith Cells Urine Bacteria Hyaline Casts Urine Mucus Stool Occult Blood Urine Opiates Screen Not Detected Urine Fentanyl Screen Not Detected Ur Barbiturates Screen Not Detected Ur Phencyclidine Scrn Not Detected Ur Amphetamines Screen Not Detected U Benzodiazepines Scrn Not Detected Urine Cocaine Screen Not Detected U Marijuana (THC) Screen Not Detected Ethyl Alcohol COVID-19 (SOFIYA) COVID-19 Clin Com Blood Type Antibody Screen Imaging Radiologist's Impressions: Impressions Chest X-Ray 03/06/22 23:27 IMPRESSION: No acute abnormality of chest. Abdomen/Pelvis CT 03/07/22 00:25 IMPRESSION: 1. Short segment of wall thickening in the proximal ascending colon, raising suspicion for a mass for which further workup (such as with colonoscopy) is recommended; alternatively, focal colitis could have possibly a similar appearance. Multiple foci of gas throughout the abdomen are consistent with perforation. The colon beyond beyond this site is relatively collapsed, concerning for a degree of associated obstruction. Small amount of free fluid also noted. 2. Enlarged right-sided mesenteric lymph node, concerning for chelsi metastasis. 3. No pulmonary embolus identified. 4. Large hiatal hernia, increased from prior. 5. Multiple bilateral renal cysts, with some associated calcifications in the right lower pole. Follow-up renal protocol CT in 6 months is advised, if not previously performed. 6. Extensive pulmonary emphysema. 7. Cholelithiasis. This critical result was discussed with Dr. Chapman on 03/07/2022 1:09 AM, and it was ascertained that the content and urgency of the report was understood at the time of direct communication. Chest CTA 03/07/22 00:25 IMPRESSION: 1. Short segment of wall thickening in the proximal ascending colon, raising suspicion for a mass for which further workup (such as with colonoscopy) is recommended; alternatively, focal colitis could have possibly a similar appearance. Multiple foci of gas throughout the abdomen are consistent with perforation. The colon beyond beyond this site is relatively collapsed, concerning for a degree of associated obstruction. Small amount of free fluid also noted. 2. Enlarged right-sided mesenteric lymph node, concerning for chelsi metastasis. 3. No pulmonary embolus identified. 4. Large hiatal hernia, increased from prior. 5. Multiple bilateral renal cysts, with some associated calcifications in the right lower pole. Follow-up renal protocol CT in 6 months is advised, if not previously performed. 6. Extensive pulmonary emphysema. 7. Cholelithiasis. This critical result was discussed with Dr. Chapman on 03/07/2022 1:09 AM, and it was ascertained that the content and urgency of the report was understood at the time of direct communication. Assessment and Plan (1) Perforated bowel: Status: Acute (2) Chronic restrictive lung disease: Status: Acute Plan An 81 years old lady with PMH of COPD, HTN, GERD among others who presents to the hospital with shortness of breath and abdominal pain. COPD Not in exacerbation P.r.n. albuterol GERD IV pantoprazole for now Hold ibuprofen HTN Hold home medications perforated bowels Followed by surgical team Pending medication reconciliation Thank you for the consult, will continue to monitor the patient with you
[2022-03-07] MEDS: Morphine Sulfate 4 MG/ML CARTRIDGE 3 MG IVPUSH ×2 (13:05→23:59)
--- NOTE | 2022-03-07 14:24 | PHA.MEDREC ---
MED REC COMPLETE, NO ISSUES Pharmacy Consult ? Medication Reconciliation Pharmacy has completed the medication reconciliation.
--- NOTE | 2022-03-07 15:01 | PC.NURSE ---
report taken from OR. pt arrived to unit, transferred to bed, max assist. informed of + blood culture. safety and fall precautions maintained. call mejía within reach
--- NOTE | 2022-03-07 16:16 | PM.EVENT ---
Event Note Date of Service: 03/07/22 Event Note: seen on pm rounds looks comfortable says she has good pain control stoma viable looking stable VS abd soft NGT out - was not in place on xray, difficult to advance due to hiatal hernia instructed on incentive spirometry IV Zosyn
[2022-03-07] MEDS: vancomycin HCL 1,250 MG in 0.9 % Sodium Chloride 250 ML 166.67 MG IV (16:34)
[2022-03-07] MEDS: Heparin Sodium,Porcine 5,000 UNIT/ML VIAL 5000 UNIT SUBCUT (20:00)
[2022-03-07] MEDS: 0.9 % Sodium Chloride Flush 3 ML SYRINGE IVFLUSH ×2 (20:05→20:06)
[2022-03-08] VITALS (9 sets, daily range): BP systolic 103–122; BP diastolic 53–61; PULSE 87–123; RESP 18–32; TEMP 36.4–37.2; O2SAT 3–97
[2022-03-08] MEDS: Piperacillin Sodium/Tazobactam 3.375 GM in 0.9 % Sodium Chloride 50 ML IV ×4 (01:39→18:32)
[2022-03-08] MEDS: Morphine Sulfate 4 MG/ML CARTRIDGE 3 MG IVPUSH ×5 (05:52→22:18)
[2022-03-08] MEDS: Pantoprazole Sodium 40 MG/10 ML VIAL IVPUSH (05:54)
[2022-03-08 06:29] LABS: Hematocrit 28.1 % (37.0-47.0); Hemoglobin 8.3 g/dl (12.0-16.0); Mean Corpuscular HGB Conc 29.5 g/dl (31.0-35.0); Mean Corpuscular Hemoglobin 24.5 pg (27.0-33.0); Mean Corpuscular Volume 82.9 fL (80.0-98.0); Mean Platelet Volume 10.4 fL (9.4-12.3); Platelet Count 286 X10*3/uL (160-400); Red Blood Count 3.39 X10*6/uL (4.20-5.50); Red Cell Distribution Width 17.4 % (11.0-16.0); White Blood Count 8.3 X10*3/uL (4.8-10.8)
[2022-03-08 07:04] LABS: Anion Gap 14 (12-20); Blood Urea Nitrogen 29 mg/dL (9-16); Calcium 8.2 mg/dL (8.4-10.2); Carbon Dioxide 23 mmol/L (22-29); Chloride 108 mmol/L (96-108); Creatinine Clr Calc Pharmacy 35.1; Estimated Glomerular Filt Rate 45; Glucose Random 97 mg/dL (60-115); Potassium 4.9 mmol/L (3.3-5.1); Sodium 140 mmol/L (135-145)
--- NOTE | 2022-03-08 07:09 | HE.PHANOTE ---
KARINE WONG CONTINUE CURRENT DOSE, NEXT TROUGH 0400 ON 03/09
[2022-03-08] MEDS: Lactated Ringers 1,000 ML 100 ML IVCONT (08:31)
[2022-03-08] MEDS: Heparin Sodium,Porcine 5,000 UNIT/ML VIAL 5000 UNIT SUBCUT ×2 (08:32→18:31)
--- NOTE | 2022-03-08 09:08 | MHC.CM.PN ---
IMM addressed, original to pt and copy filed in chart. Pt reports she lives alone and is independent at home and community. She reports she does not receive any home services; however, her cousin Nora, may begin [facility] process. She reports she lives in a house and uses a stair lift to get to bedroom and bathroom-no bathroom on first floor. She is COVID vax'd x2 ([employer]). Reports HCP was signed 03/07/22- Nora is designated and believes a copy in her chart. PCP: Kriss De Leon. Nora will provide transportion. D/C Plan: Home (self-care) vs Home with New [facility] Service
[2022-03-08] MEDS: Dextrose 5 % and 0.9 % NaCl 1,000 ML 100 ML IVCONT (10:03)
--- NOTE | 2022-03-08 11:26 | HO.POSTANES ---
Post Anesthesia Evaluation Post Anesthesia Evaluation Vital Signs: Vital Signs Temp Pulse Resp BP Pulse Ox O2 Del Method O2 Flow Rate 03/08/22 07:18 89 L Nasal Cannula 03/08/22 08:00 97.8 F 108 H 18 107/56 L 89 L Nasal Cannula 2.5 03/08/22 04:00 97.5 F 100 18 103/54 L 90 L Nasal Cannula 2.5 03/07/22 23:52 97.6 F 107 H 18 119/57 L 97 Nasal Cannula 2.5 Anesthesia: General Endotracheal-GETA Mental Status: Awake Pain Control: Satisfactory Nausea/Vomiting: None Hydration: Adequate Anesthesia-Related Issues: No Anes. Related Issues
--- NOTE | 2022-03-08 14:08 | P.PNIM_ITS ---
Subjective Subjective Date of Service: 03/08/22 Interval History: Seen and evaluated this morning Short of breath, requiring oxygen supplement Hypoxic No other overnight events Review of Systems No fever, chills or weakness No chest pain, palpitation Worsening shortness of breath with oxygen requirement Abdominal pain after surgery No urinary symptoms No any rash or wounds Physical Exam Vital Signs: Vital Signs: Last Vital Signs Temp 98.8 F 03/08/22 11:46 Pulse 114 H 03/08/22 11:46 Resp 18 03/08/22 11:46 BP 116/56 L 03/08/22 11:46 Pulse Ox 92 03/08/22 11:46 O2 Del Method 03/08/22 11:46 O2 Flow Rate 2.5 03/08/22 11:46 Oxygen Flow Rate 2.5 03/08/22 07:18 BMI result Body Mass Index 22.1 Const: Other: Constitutional : Alert, oriented, not in distress Neck : Normal inspection, Supple Cardiovascular : RRR, no JVP, no lower extremity edema Respiratory : fair bilateral air entry, basal fine bilateral crackles, on oxygen supplement Gastrointestinal: soft, lax, Normal bowel sounds, tenderness around the surgical site Skin : Warm, Dry Neurological : Alert & oriented x3, No focal deficit , CN 2-12 within normal Objective Data Active Medications Albuterol Sulfate (Albuterol Sulfate (0.042%) 1.25 Mg/3 Ml Vial.Neb) 1.25 mg INHALE RQ4H PRN PRN Reason: Wheezing Albuterol/Ipratropium (Albuterol/Iprat 2.5/0.5mg 3 Ml Ampul.Neb) 3 ml INHALE RQ4H PRN PRN Reason: Shortness of Breath/Wheezing Fentanyl (Fentanyl Citrate/Pf 100 Mcg/2 Ml Vial) 25 mcg IVPUSH Q5M PRN; Pro tocol PRN Reason: Pain, Moderate (Pain Scale 4-6 Last Admin: 03/07/22 10:15 Dose: 25 mcg Documented By: REMEDIOS Heparin Sodium (Porcine) (Heparin Sodium,Porcine 5,000 Unit/Ml Vial) 5,000 unit SUBCUT Q12H [facility] Last Admin: 03/08/22 08:32 Dose: 5,000 unit Documented By: LYNN Vancomycin HCl 1,000 mg/ (Sodium Chloride) 270 mls @ 270 mls/hr IV Q24H [facility] Piperacillin Sod/Tazobactam (Sod 3.375 gm/ Sodium Chloride) 50 mls @ 100 mls/hr IV Q6H [facility] Last Admin: 03/08/22 13:15 Dose: 100 mls/hr Documented By: LYNN Dextrose/Sodium Chloride (D5ns) 1,000 mls @ 100 mls/hr IVCONT .Q10H [facility] Last Admin: 03/08/22 10:03 Dose: 100 mls/hr Documented By: LYNN Morphine Sulfate (Morphine Sulfate 4 Mg/Ml Cartridge) 3 mg IVPUSH Q3H PRN; Prot ocol PRN Reason: Pain, Severe (Pain Scale 7-10) Last Admin: 03/08/22 13:15 Dose: 3 mg Documented By: LYNN Ondansetron HCl (Ondansetron Hcl 4 Mg/2 Ml Vial) 4 mg IVPUSH ONCE PRN PRN Reason: Nausea and Vomiting Pantoprazole Sodium (Pantoprazole Sodium 40 Mg/10 Ml Vial) 40 mg IVPUSH DAILY@0630 [facility] Last Admin: 03/08/22 05:54 Dose: 40 mg Documented By: ZEN Pharmacy Consult (Consult Rx Perform Med Rec) 1 each MISCELLANE ONCE PRN PRN Reason: Consult order Pharmacy Consult (Consult Rx Vancomycin Dosing) 1 each MISCELLANE DAILY PRN PRN Reason: Consult order Sodium Chloride (0.9 % Sodium Chloride Flush 3 Ml Syringe) 3 ml IVFLUSH [facility] Last Admin: 03/08/22 08:43 Dose: Not Given Documented By: LYNN Non-Admin Reason: IV Running Sodium Chloride (0.9 % Sodium Chloride Flush 3 Ml Syringe) 3 ml IVFLUSH QSNJFT [facility] Last Admin: 03/08/22 09:06 Dose: Not Given Documented By: LYNN Non-Admin Reason: IV Running Labs CBC & Chem 7: 03/08/22 05:20 03/08/22 05:20 Labs: Laboratory Results - last 24 hr 03/08/22 03/08/22 05:20 05:20 MCV 82.9 MCH 24.5 L MCHC 29.5 L RDW 17.4 H Plt Count 286 D MPV 10.4 Absolute Nucleated RBC 0.000 Nucleated RBC % (auto) 0.0 Anion Gap 14 Estim Creat Clear Calc 35.1 Estimated GFR 45 Random Glucose 97 Calcium 8.2 L D Microbiology Microbiology Results: Microbiology 03/07/22 Unknown Gram Stain - Final Abdominal Fluid Routine Culture - Preliminary Culture in progress. Anaerobic Culture - Preliminary Culture in progress. 03/07/22 01:54 Blood Culture - Final Blood - Venous Streptococcus viridans group 03/07/22 Unknown Urine Culture - Preliminary Urine Catheterized - [place] Catheter Culture in progress. 03/06/22 23:18 Blood Culture - Preliminary Blood - Venous Prelim: GNR Gram Stain only Assessment and Plan (1) Perforated bowel: Status: Acute (2) Bacteremia due to Streptococcus: Status: Acute Plan An 81 years old lady with PMH of COPD, HTN, GERD among others who presents to the hospital with shortness of breath and abdominal pain. Hypoxia 2/2 Mild diastolic CHF exacerbation O2 dropped to 89% Evidence on CXR and hypoxia Give IV Lasix Monitor intake and output Positive blood cultures One set growing Streptococcus viridans, 2nd set growing GNR Started on vancomycin Repeat blood culture pending final sensitivity Get ID evaluation COPD Not in exacerbation P.r.n. albuterol GERD IV pantoprazole for now Hold ibuprofen HTN Hold home medications perforated bowels On Zosyn Followed by surgical team Thank you for the consult, will continue to monitor the patient with you Quality Stroke Does the patient have a stroke diagnosis?: No VTE Prior VTE?: No VTE Risk Level:: Medical - moderate - high VTE Device Contraindication: N/A - Device Ordered VTE Drug Contraindication: N/A - Med Ordered
[2022-03-08] MEDS: Furosemide 20 MG/2 ML VIAL IVPUSH (14:58)
--- NOTE | 2022-03-08 15:37 | W.PM.IDCN ---
History of Present Illness Data of Consult Service Date: 03/08/22 Requesting physician: Fortino Tamayo Primary Care Provider: Kriss De Leon NP HPI Reason for consult: sepsis,strep viridans,tachycardia and tachypnea She presents to hospital with acute abdominal pain 03/07 at 1400,8/10. She had pain midepigastric area. She has no fever or chills. CT showed perforation ascending colon. She went urgently to Surgery with Dr Cortez and found to have consistent exam with CT scan with fecal spillage. Blood culture 03/06 gram negative jessica TBI. She has strep viridans blood on 03/07. She has no endocarditis history mentioned. Review of Systems Review of Systems: Yes all other systems are reviewed and are negative PMFSH Past Medical History Medical History (Updated 03/08/22 @ 15:44 by Lorri Miller MD) Anemia B12 deficiency Bacteremia due to Gram-negative bacteria Breast cancer Chronic restrictive lung disease COPD (chronic obstructive pulmonary disease) Dyspnea Emphysema lung GERD (gastroesophageal reflux disease) Hypertension Osteoporosis Pulmonary nodule Sepsis Tachycardia Wrist fracture, bilateral Family History Family History Other Vaginal cancer Family history: reviewed and not pertinent Surgical History Surgical History H/O colectomy H/O hysterectomy with oophorectomy History of appendectomy History of cataract surgery History of lumpectomy of right breast Hx of colonoscopy Hx of esophagogastroduodenoscopy Hx of lumpectomy S/P excision of lipoma Social History Social History Household Members: None Are you a primary early breastfeeding care specialist to a significant other at home: No Do you presently have visiting nurse or other home services: No Alcohol intake: current Alcohol intake frequency: holidays/special occasions only Patient Tobacco Use Status: Former Tobacco user Tobacco use type: Cigarette Years Smoked: 25 years Second Hand Smoke Exposure: No Use of substances other than those prescribed or required for medical reasons: No Currently Displaying Signs/Symptoms of Drug Intoxication Withdrawal: No Advance Directives: No service: No Current occupational status: disabled Current occupation: rt handed Meds Allergies Allergy/AdvReac Type Severity Reaction Status Date / Time meperidine [From Demerol] Allergy Mild VOMITING Verified 03/06/22 23:05 Active Medications: Current Medications Albuterol Sulfate (Albuterol Sulfate (0.042%) 1.25 Mg/3 Ml Vial.Neb) 1.25 mg INHALE RQ4H PRN PRN Reason: Wheezing Albuterol/Ipratropium (Albuterol/Iprat 2.5/0.5mg 3 Ml Ampul.Neb) 3 ml INHALE RQ4H PRN PRN Reason: Shortness of Breath/Wheezing Fentanyl (Fentanyl Citrate/Pf 100 Mcg/2 Ml Vial) 25 mcg IVPUSH Q5M PRN; Protocol PRN Reason: Pain, Moderate (Pain Scale 4-6 Last Admin: 03/07/22 10:15 Dose: 25 mcg Heparin Sodium (Porcine) (Heparin Sodium,Porcine 5,000 Unit/Ml Vial) 5,000 unit SUBCUT Q12H [facility] Last Admin: 03/08/22 08:32 Dose: 5,000 unit Vancomycin HCl 1,000 mg/ (Sodium Chloride) 270 mls @ 270 mls/hr IV Q24H [facility] Piperacillin Sod/Tazobactam (Sod 3.375 gm/ Sodium Chloride) 50 mls @ 100 mls/hr IV Q6H [facility] Last Infusion: 03/08/22 14:53 Dose: Infused Dextrose/Sodium Chloride (D5ns) 1,000 mls @ 100 mls/hr IVCONT .Q10H [facility] Last Admin: 03/08/22 10:03 Dose: 100 mls/hr Morphine Sulfate (Morphine Sulfate 4 Mg/Ml Cartridge) 3 mg IVPUSH Q3H PRN; Protocol PRN Reason: Pain, Severe (Pain Scale 7-10) Last Admin: 03/08/22 13:15 Dose: 3 mg Ondansetron HCl (Ondansetron Hcl 4 Mg/2 Ml Vial) 4 mg IVPUSH ONCE PRN PRN Reason: Nausea and Vomiting Pantoprazole Sodium (Pantoprazole Sodium 40 Mg/10 Ml Vial) 40 mg IVPUSH DAILY@0630 [facility] Last Admin: 03/08/22 05:54 Dose: 40 mg Pharmacy Consult (Consult Rx Perform Med Rec) 1 each MISCELLANE ONCE PRN PRN Reason: Consult order Pharmacy Consult (Consult Rx Vancomycin Dosing) 1 each MISCELLANE DAILY PRN PRN Reason: Consult order Sodium Chloride (0.9 % Sodium Chloride Flush 3 Ml Syringe) 3 ml IVFLUSH [facility] Last Admin: 03/08/22 08:43 Dose: Not Given Sodium Chloride (0.9 % Sodium Chloride Flush 3 Ml Syringe) 3 ml IVFLUSH [facility] Last Admin: 03/08/22 09:06 Dose: Not Given Home Medications Medication Instructions Recorded Confirmed Last Taken Type cholecalciferol (vitamin D3) 25 25 mcg PO DAILY 06/03/20 03/07/22 Unknown History mcg (1,000 unit) tablet cyanocobalamin (vitamin B-12) 1,000 mcg IM QMONTH 06/03/20 03/07/22 Unknown History 1,000 mcg/mL injection kit (B-12 Compliance) ferrous sulfate 325 mg (65 mg 325 mg PO DAILY 06/03/20 03/07/22 Unknown History iron) tablet hydrochlorothiazide 25 mg tablet 25 mg PO DAILY 06/03/20 03/07/22 Unknown History snhhwsaxegan-pvtyttoz-cxgnap tablet 1 tab PO DAILY 06/03/20 03/07/22 Unknown History tizanidine 4 mg tablet 4 mg PO BEDTIME PRN Muscle Pain 06/03/20 03/07/22 Unknown History omeprazole 20 mg capsule,delayed 1 cap PO DAILY 12/03/20 03/07/22 Unknown History release calcium carbonate 500 mg calcium 500 mg PO BID 03/07/22 03/07/22 Unknown History (1,250 mg) tablet Physical Exam Vital Signs: Vital Signs: Last Vital Signs Temp 97.8 F 03/08/22 15:30 Pulse 87 03/08/22 15:30 Resp 18 03/08/22 15:30 BP 103/59 L 03/08/22 15:30 Pulse Ox 97 03/08/22 15:30 O2 Del Method 03/08/22 15:30 O2 Flow Rate 2.5 03/08/22 15:30 Oxygen Flow Rate 2.5 03/08/22 07:18 BMI result Body Mass Index 22.1 Const: General: cooperative HEENT: Head: Yes normal to inspection Face and sinus: Yes normal facial exam Mouth: Normal oral and palatal mucosa present Teeth and gingiva: dentition normal Eyes: General: appearance normal, both eyes and all related structures Pupils: Equal, round and reactive pupils present Resp: Effort & Inspection: normal respiratory effort Cardio: Rate: regular rate Rhythm: regular rhythm GI: Palpation (GI): Soft to palpation, nontender and Other GI palpation findings present (diminished bowel sounds,ileostomy and mucus fistula postop) : General: Yes no CVA tenderness Back/Spine/Pelvis: Back: no CVA tenderness Skin: General skin exam: no rashes or lesions noted Neuro: General: moves all extremities Cranial nerves: Yes Equal, round and reactive pupils present Extrem: General: Yes normal to inspection Psych: Appearance: grossly normal Results Labs CBC & Chem 7: 03/08/22 05:20 03/08/22 05:20 Labs: Short CBC 03/08/22 Range/Units 05:20 WBC 8.3 (4.8-10.8) X10*3/uL Hgb 8.3 L D (12.0-16.0) g/dl Hct 28.1 L (37.0-47.0) % Plt Count 286 D (160-400) X10*3/uL BMP 03/08/22 05:20 Sodium 140 Potassium 4.9 Chloride 108 Carbon Dioxide 23 BUN 29 H D Creatinine 1.15 Calcium 8.2 L D Microbiology Microbiology Results: Microbiology 03/07/22 Unknown Abdominal Fluid Gram Stain - Final 03/07/22 Unknown Abdominal Fluid Routine Culture - Preliminary Culture in progress. 03/07/22 Unknown Abdominal Fluid Anaerobic Culture - Preliminary Culture in progress. 03/07/22 01:54 Blood - Venous Blood Culture - Final Streptococcus viridans group 03/07/22 Unknown Urine Catheterized - Zarco Catheter Urine Culture - Preliminary Culture in progress. 03/06/22 23:18 Blood - Venous Blood Culture - Preliminary Prelim: GNR Gram Stain only Assessment and Plan (1) Bacteremia due to Streptococcus: Status: Acute (2) Perforated bowel: Status: Acute (3) COPD (chronic obstructive pulmonary disease): Status: Acute (4) Bacteremia due to Gram-negative bacteria: Status: Acute (5) Sepsis: Status: Acute She has gram negative jessica and strep bacteremia due to bowel perforation and fecal spillage. There are multiple gram negative bacteria,some anerobes and gram positive bacteria found normally in secondary peritonitis Plan Would continue piperacillin/tazobactam or merem.await gram negative and switch to po likely for total 14 days when able. Would stop Vancomycin as no need Surgery followup No need for echo in acute infectious situation with gram positive bacteremia.
--- NOTE | 2022-03-08 16:13 | PM.PNGS ---
Subjective Subjective Date of Service: 03/08/22 Interval history: Says that she has good pain control Feels much better No nausea or vomiting Physical Exam Vital Signs: Vital Signs: Last Vital Signs Temp 97.8 F 03/08/22 15:30 Pulse 87 03/08/22 15:30 Resp 18 03/08/22 15:30 BP 103/59 L 03/08/22 15:30 Pulse Ox 97 03/08/22 15:30 O2 Del Method 03/08/22 15:30 O2 Flow Rate 2.5 03/08/22 15:30 Oxygen Flow Rate 2.5 03/08/22 07:18 BMI result Body Mass Index 22.1 Const: General: comfortable and no acute distress Resp: Effort & Inspection: normal respiratory effort Cardio: Rate: regular rate GI: Other: Soft, no guarding rebound, incision clean and dry, ileostomy viable, small amount of stool in stoma appliance Objective Data Active Medications Albuterol Sulfate (Albuterol Sulfate (0.042%) 1.25 Mg/3 Ml Vial.Neb) 1.25 mg INHALE RQ4H PRN PRN Reason: Wheezing Albuterol/Ipratropium (Albuterol/Iprat 2.5/0.5mg 3 Ml Ampul.Neb) 3 ml INHALE RQ4H PRN PRN Reason: Shortness of Breath/Wheezing Fentanyl (Fentanyl Citrate/Pf 100 Mcg/2 Ml Vial) 25 mcg IVPUSH Q5M PRN; Protocol PRN Reason: Pain, Moderate (Pain Scale 4-6 Last Admin: 03/07/22 10:15 Dose: 25 mcg Documented By: REMEDIOS Heparin Sodium (Porcine) (Heparin Sodium,Porcine 5,000 Unit/Ml Vial) 5,000 unit SUBCUT Q12H [facility] Last Admin: 03/08/22 08:32 Dose: 5,000 unit Documented By: LYNN Piperacillin Sod/Tazobactam (Sod 3.375 gm/ Sodium Chloride) 50 mls @ 100 mls/hr IV Q6H [facility] Last Infusion: 03/08/22 14:53 Dose: 100 mls/hr Documented By: LYNN Dextrose/Sodium Chloride (D5ns) 1,000 mls @ 100 mls/hr IVCONT .Q10H [facility] Last Admin: 03/08/22 10:03 Dose: 100 mls/hr Documented By: LYNN Morphine Sulfate (Morphine Sulfate 4 Mg/Ml Cartridge) 3 mg IVPUSH Q3H PRN; Protocol PRN Reason: Pain, Severe (Pain Scale 7-10) Last Admin: 03/08/22 13:15 Dose: 3 mg Documented By: LYNN Ondansetron HCl (Ondansetron Hcl 4 Mg/2 Ml Vial) 4 mg IVPUSH ONCE PRN PRN Reason: Nausea and Vomiting Pantoprazole Sodium (Pantoprazole Sodium 40 Mg/10 Ml Vial) 40 mg IVPUSH DAILY@0630 [facility] Last Admin: 03/08/22 05:54 Dose: 40 mg Documented By: ZEN Pharmacy Consult (Consult Rx Perform Med Rec) 1 each MISCELLANE ONCE PRN PRN Reason: Consult order Pharmacy Consult (Consult Rx Vancomycin Dosing) 1 each MISCELLANE DAILY PRN PRN Reason: Consult order Sodium Chloride (0.9 % Sodium Chloride Flush 3 Ml Syringe) 3 ml IVFLUSH [facility] Last Admin: 03/08/22 08:43 Dose: Not Given Documented By: LYNN Non-Admin Reason: IV Running Sodium Chloride (0.9 % Sodium Chloride Flush 3 Ml Syringe) 3 ml IVFLUSH [facility] Last Admin: 03/08/22 09:06 Dose: Not Given Documented By: LYNN Non-Admin Reason: IV Running Labs CBC & Chem 7: 03/08/22 05:20 03/08/22 05:20 Labs: Laboratory Results - last 24 hr 03/08/22 03/08/22 05:20 05:20 MCV 82.9 MCH 24.5 L MCHC 29.5 L RDW 17.4 H Plt Count 286 D MPV 10.4 Absolute Nucleated RBC 0.000 Nucleated RBC % (auto) 0.0 Anion Gap 14 Estim Creat Clear Calc 35.1 Estimated GFR 45 Random Glucose 97 Calcium 8.2 L D Microbiology Microbiology Results: Microbiology 03/07/22 Unknown Gram Stain - Final Abdominal Fluid Routine Culture - Preliminary Culture in progress. Anaerobic Culture - Preliminary Culture in progress. 03/07/22 01:54 Blood Culture - Final Blood - Venous Streptococcus viridans group 03/07/22 Unknown Urine Culture - Preliminary Urine Catheterized - Zarco Catheter Culture in progress. 03/06/22 23:18 Blood Culture - Preliminary Blood - Venous Prelim: GNR Gram Stain only Procedures Date of Service Date of Service: 03/08/22 Progress Note: A&P Assessment and plan (1) Perforated bowel: Status: Acute Assessment and Plan: Status post right colon resection, ileostomy, mucous fistula Clinically doing well Okay to have clear liquids Abdomen soft and benign, ileostomy viable with small amount of stool Hemoglobin low - will follow closely and repeat tomorrow Out of bed to chair Incentive spirometry Pain management Time Spent With Patient Time: Total time spent is greater than 50% in coordination of care (as documented) at patient's floor/unit and/or counseling patient: Quality Stroke Does the patient have a stroke diagnosis?: No VTE Prior VTE?: No VTE Risk Level:: Medical - moderate - high VTE Device Contraindication: N/A - Device Ordered VTE Drug Contraindication: N/A - Med Ordered
--- NOTE | 2022-03-08 17:27 | PC.NURSE ---
patient slightly sob, lungs diminished throughout, called respiratory for duoneb, will come when finished in ED
[2022-03-08] MEDS: Albuterol/Iprat 2.5/0.5MG 3 ML AMPUL.NEB INHALE (17:38)
--- NOTE | 2022-03-08 18:03 | PM.EVENT ---
Event Note Date of Service: 03/08/22 Event Note: called by RN for hypoxia to 81%, dyspnea, tachycardia to 123 given Duoneb, recheck SaO2 92-93 on 3L NC legs swollen, diminished breath sounds no chest pain impression is of CHF exacerbation- will give 40 mg IV furosemide, monitor I/O. D/C D5NS 100 mL/hr
[2022-03-08] MEDS: Furosemide 40 MG/4 ML VIAL IVPUSH (18:31)
[2022-03-09] MEDS: Piperacillin Sodium/Tazobactam 3.375 GM in 0.9 % Sodium Chloride 50 ML IV ×4 (01:18→18:23)
[2022-03-09] MEDS: 0.9 % Sodium Chloride Flush 3 ML SYRINGE IVFLUSH ×6 (01:24→17:41)
[2022-03-09 04:00] VITALS: BP 100/60; PULSE 107; RESP 20; TEMP 36.2; O2SAT 94
[2022-03-09] MEDS: Heparin Sodium,Porcine 5,000 UNIT/ML VIAL 5000 UNIT SUBCUT (06:28)
[2022-03-09] MEDS: Pantoprazole Sodium 40 MG/10 ML VIAL IVPUSH (06:29)
[2022-03-09] MEDS: Morphine Sulfate 4 MG/ML CARTRIDGE 3 MG IVPUSH ×4 (06:34→17:28)
[2022-03-09 07:00] VITALS: O2SAT 90
[2022-03-09 07:16] LABS: Hemoglobin 8.1 g/dl (12.0-16.0); Mean Corpuscular HGB Conc 31.2 g/dl (31.0-35.0); Mean Corpuscular Hemoglobin 25.1 pg (27.0-33.0); Mean Corpuscular Volume 80.5 fL (80.0-98.0); Mean Platelet Volume 10.7 fL (9.4-12.3); Platelet Count 309 X10*3/uL (160-400); Red Blood Count 3.23 X10*6/uL (4.20-5.50); Red Cell Distribution Width 17.2 % (11.0-16.0); White Blood Count 7.1 X10*3/uL (4.8-10.8)
[2022-03-09 07:32] LABS: Blood Urea Nitrogen 26 mg/dL (9-16); Creatinine Clr Calc Pharmacy 35.4; Estimated Glomerular Filt Rate 46; Glucose Random 102 mg/dL (60-115)
[2022-03-09 07:45] LABS: Anion Gap 13 (12-20); Carbon Dioxide 25 mmol/L (22-29); Chloride 102 mmol/L (96-108); Potassium 3.6 mmol/L (3.3-5.1); Sodium 136 mmol/L (135-145)
[2022-03-09 07:54] LABS: B Type Natriuretic Peptide 216 pg/mL (<100)
[2022-03-09] MEDS: Furosemide 40 MG/4 ML VIAL IVPUSH (08:28)
--- NOTE | 2022-03-09 08:49 | PM.PNGS ---
Subjective Subjective Date of Service: 03/09/22 Interval history: Says she feels okay this morning Abdominal pain much improved However says that she feels ?weak? Given Lasix for shortness of breath last night Physical Exam Vital Signs: Vital Signs: Last Vital Signs Temp 98.3 F 03/09/22 08:00 Pulse 104 H 03/09/22 08:00 Resp 18 03/09/22 08:00 BP 111/62 03/09/22 08:00 Pulse Ox 94 03/09/22 08:00 O2 Del Method 03/09/22 08:00 O2 Flow Rate 2.5 03/09/22 08:00 Oxygen Flow Rate 2.5 03/08/22 07:18 BMI result Body Mass Index 22.1 Const: General: comfortable and no acute distress Resp: Effort & Inspection: normal respiratory effort Cardio: Other: Mildly tachycardic GI: Other: Soft, no guarding rebound, incision clean and dry, ileostomy with amount of stool, stoma viable looking Objective Data Active Medications Albuterol Sulfate (Albuterol Sulfate (0.042%) 1.25 Mg/3 Ml Vial.Neb) 1.25 mg INHALE RQ4H PRN PRN Reason: Wheezing Albuterol/Ipratropium (Albuterol/Iprat 2.5/0.5mg 3 Ml Ampul.Neb) 3 ml INHALE RQ4H PRN PRN Reason: Shortness of Breath/Wheezing Last Admin: 03/08/22 17:38 Dose: 3 ml Documented By: NOLBERTO Fentanyl (Fentanyl Citrate/Pf 100 Mcg/2 Ml Vial) 25 mcg IVPUSH Q5M PRN; Protocol PRN Reason: Pain, Moderate (Pain Scale 4-6 Last Admin: 03/07/22 10:15 Dose: 25 mcg Documented By: REMEDIOS Heparin Sodium (Porcine) (Heparin Sodium,Porcine 5,000 Unit/Ml Vial) 5,000 unit SUBCUT Q12H [facility] Last Admin: 03/09/22 06:28 Dose: 5,000 unit Documented By: ZEN Piperacillin Sod/Tazobactam (Sod 3.375 gm/ Sodium Chloride) 50 mls @ 100 mls/hr IV Q6H [facility] Last Admin: 03/09/22 08:28 Dose: 100 mls/hr Documented By: KILO Morphine Sulfate (Morphine Sulfate 4 Mg/Ml Cartridge) 3 mg IVPUSH Q3H PRN; Protocol PRN Reason: Pain, Severe (Pain Scale 7-10) Last Admin: 03/09/22 06:34 Dose: 3 mg Documented By: ZEN Ondansetron HCl (Ondansetron Hcl 4 Mg/2 Ml Vial) 4 mg IVPUSH ONCE PRN PRN Reason: Nausea and Vomiting Pantoprazole Sodium (Pantoprazole Sodium 40 Mg/10 Ml Vial) 40 mg IVPUSH DAILY@0630 [facility] Last Admin: 03/09/22 06:29 Dose: 40 mg Documented By: ZEN Pharmacy Consult (Consult Rx Perform Med Rec) 1 each MISCELLANE ONCE PRN PRN Reason: Consult order Pharmacy Consult (Consult Rx Vancomycin Dosing) 1 each MISCELLANE DAILY PRN PRN Reason: Consult order Sodium Chloride (0.9 % Sodium Chloride Flush 3 Ml Syringe) 3 ml IVFLUSH [facility] Last Admin: 03/09/22 08:33 Dose: 3 ml Documented By: KILO Sodium Chloride (0.9 % Sodium Chloride Flush 3 Ml Syringe) 3 ml IVFLUSH [facility] Last Admin: 03/09/22 01:24 Dose: 3 ml Documented By: ZEN Labs CBC & Chem 7: 03/09/22 06:55 03/09/22 06:55 Labs: Laboratory Results - last 24 hr 03/09/22 03/09/22 03/09/22 06:55 06:55 06:55 MCV 80.5 MCH 25.1 L MCHC 31.2 RDW 17.2 H Plt Count 309 MPV 10.7 Absolute Nucleated RBC 0.000 Nucleated RBC % (auto) 0.0 Anion Gap 13 Estim Creat Clear Calc 35.4 Estimated GFR 46 Random Glucose 102 Calcium 8.0 L B-Natriuretic Peptide 216 H Microbiology Microbiology Results: Microbiology 03/07/22 Unknown Gram Stain - Final Abdominal Fluid Routine Culture - Preliminary Culture in progress. Anaerobic Culture - Preliminary Culture in progress. 03/07/22 01:54 Blood Culture - Final Blood - Venous Streptococcus viridans group 03/07/22 Unknown Urine Culture - Preliminary Urine Catheterized - Zarco Catheter Culture in progress. 03/06/22 23:18 Blood Culture - Preliminary Blood - Venous Prelim: GNR Gram Stain only Procedures Date of Service Date of Service: 03/09/22 Progress Note: A&P Assessment and plan (1) Perforated bowel: Status: Acute Assessment and Plan: Status post laparotomy, right colon resection, end ileostomy, mucous fistula Keep on clear liquids for now Out of bed to chair Hemoglobin stable Replace potassium Hospitalist following - appreciate input Possibly DC Zarco catheter later today - patient was diuresed overnight Time Spent With Patient Time: Total time spent is greater than 50% in coordination of care (as documented) at patient's floor/unit and/or counseling patient: Quality Stroke Does the patient have a stroke diagnosis?: No VTE Prior VTE?: No VTE Risk Level:: Medical - moderate - high VTE Device Contraindication: N/A - Device Ordered VTE Drug Contraindication: N/A - Med Ordered
[2022-03-09 12:00] VITALS: BP 111/62; PULSE 104; RESP 18; TEMP 36.8; O2SAT 94
--- NOTE | 2022-03-09 12:19 | HO.PM.IMPN ---
Subjective Subjective Date of Service: 03/09/22 Interval History: Seen and evaluated this morning Improvement of shortness of breath but still requiring oxygen supplement Had an event of hypoxia last night requiring extra doses of Lasix No other overnight events Review of Systems No fever, chills or weakness No chest pain, palpitation Improved shortness of breath with oxygen requirement Abdominal pain after surgery No urinary symptoms No any rash or wounds Physical Exam Vital Signs: Vital Signs: Last Vital Signs Temp 98.3 F 03/09/22 08:00 Pulse 104 H 03/09/22 08:00 Resp 18 03/09/22 08:00 BP 111/62 03/09/22 08:00 Pulse Ox 94 03/09/22 08:00 O2 Del Method 03/09/22 08:00 O2 Flow Rate 2.5 03/09/22 08:00 Oxygen Flow Rate 2.5 03/08/22 07:18 BMI result Body Mass Index 22.1 Const: Other: Constitutional : Alert, oriented, not in distress Neck : Normal inspection, Supple Cardiovascular : RRR, no JVP, no lower extremity edema Respiratory : fair bilateral air entry, basal fine bilateral crackles, on oxygen supplement Gastrointestinal: soft, lax, Normal bowel sounds, tenderness around the surgical site Skin : Warm, Dry Neurological : Alert & oriented x3, No focal deficit , CN 2-12 within normal Objective Data Active Medications Albuterol Sulfate (Albuterol Sulfate (0.042%) 1.25 Mg/3 Ml Vial.Neb) 1.25 mg INHALE RQ4H PRN PRN Reason: Wheezing Albuterol/Ipratropium (Albuterol/Iprat 2.5/0.5mg 3 Ml Ampul.Neb) 3 ml INHALE RQ4H PRN PRN Reason: Shortness of Breath/Wheezing Last Admin: 03/08/22 17:38 Dose: 3 ml Documented By: NOLBERTO Fentanyl (Fentanyl Citrate/Pf 100 Mcg/2 Ml Vial) 25 mcg IVPUSH Q5M PRN; Protocol PRN Reason: Pain, Moderate (Pain Scale 4-6 Last Admin: 03/07/22 10:15 Dose: 25 mcg Documented By: REMEDIOS Heparin Sodium (Porcine) (Heparin Sodium,Porcine 5,000 Unit/Ml Vial) 5,000 unit SUBCUT Q12H [facility] Last Admin: 03/09/22 06:28 Dose: 5,000 unit Documented By: ZEN Piperacillin Sod/Tazobactam (Sod 3.375 gm/ Sodium Chloride) 50 mls @ 100 mls/hr IV Q6H [facility] Last Infusion: 03/09/22 10:42 Dose: 0 mls/hr Documented By: KILO Morphine Sulfate (Morphine Sulfate 4 Mg/Ml Cartridge) 3 mg IVPUSH Q3H PRN; Protocol PRN Reason: Pain, Severe (Pain Scale 7-10) Last Admin: 03/09/22 10:23 Dose: 3 mg Documented By: KILO Ondansetron HCl (Ondansetron Hcl 4 Mg/2 Ml Vial) 4 mg IVPUSH ONCE PRN PRN Reason: Nausea and Vomiting Pantoprazole Sodium (Pantoprazole Sodium 40 Mg/10 Ml Vial) 40 mg IVPUSH DAILY@0630 [facility] Last Admin: 03/09/22 06:29 Dose: 40 mg Documented By: ZEN Pharmacy Consult (Consult Rx Perform Med Rec) 1 each MISCELLANE ONCE PRN PRN Reason: Consult order Pharmacy Consult (Consult Rx Vancomycin Dosing) 1 each MISCELLANE DAILY PRN PRN Reason: Consult order Sodium Chloride (0.9 % Sodium Chloride Flush 3 Ml Syringe) 3 ml IVFLUSH [facility] Last Admin: 03/09/22 10:43 Dose: 3 ml Documented By: KILO Sodium Chloride (0.9 % Sodium Chloride Flush 3 Ml Syringe) 3 ml IVFLUSH QSHIFT [facility] Last Admin: 03/09/22 10:49 Dose: Not Given Documented By: KILO Non-Admin Reason: See Note Labs CBC & Chem 7: 03/09/22 06:55 03/09/22 06:55 Labs: Laboratory Results - last 24 hr 03/09/22 03/09/22 03/09/22 06:55 06:55 06:55 MCV 80.5 MCH 25.1 L MCHC 31.2 RDW 17.2 H Plt Count 309 MPV 10.7 Absolute Nucleated RBC 0.000 Nucleated RBC % (auto) 0.0 Anion Gap 13 Estim Creat Clear Calc 35.4 Estimated GFR 46 Random Glucose 102 Calcium 8.0 L B-Natriuretic Peptide 216 H Microbiology Microbiology Results: Microbiology 03/06/22 23:18 Blood Culture - Preliminary Blood - Venous Prelim: GNR Gram Stain only 03/07/22 Unknown Urine Culture - Preliminary Urine Catheterized - Zarco Catheter Gram negative jessica 03/07/22 Unknown Gram Stain - Final Abdominal Fluid Routine Culture - Preliminary Gram negative jessica Anaerobic Culture - Preliminary Culture in progress. 03/07/22 01:54 Blood Culture - Final Blood - Venous Streptococcus viridans group Assessment and Plan (1) Bacteremia due to Gram-negative bacteria: Status: Acute (2) Perforated bowel: Status: Acute (3) Acute exacerbation of CHF (congestive heart failure): Status: Acute Plan An 81 years old lady with PMH of COPD, HTN, GERD among others who presents to the hospital with shortness of breath and abdominal pain. Acute Hypoxia 2/2 Mild diastolic CHF exacerbation O2 dropped to 82% yesterday Elevated BNP above 200 Evidence on CXR and hypoxia Continue IV Lasix Monitor intake and output Gram-negative and strip bacteremia One set growing Streptococcus viridans, 2nd set growing GNR Continue Zosyn Repeat blood culture pending final sensitivity Id input appreciated COPD Not in exacerbation P.r.n. albuterol GERD IV pantoprazole for now Hold ibuprofen HTN Hold home medications perforated bowels On Zosyn Followed by surgical team Thank you for the consult, will continue to monitor the patient with you Quality Stroke Does the patient have a stroke diagnosis?: No VTE Prior VTE?: No VTE Risk Level:: Medical - moderate - high VTE Device Contraindication: N/A - Device Ordered VTE Drug Contraindication: N/A - Med Ordered
[2022-03-09 15:22] VITALS: BP 117/55; PULSE 105; RESP 14; TEMP 36.7; O2SAT 98
[2022-03-09] MEDS: oxyCODONE HCl Immed Release 5 MG TABLET 10 MG PO (17:30)
[2022-03-09] MEDS: Omeprazole 20 MG CAPSULE.DR PO (17:30)
[2022-03-09 19:15] VITALS: BP 113/65; PULSE 107; RESP 16; TEMP 38.3; O2SAT 93
[2022-03-09 23:09] VITALS: BP 146/93; PULSE 107; RESP 16; TEMP 36.5; O2SAT 96
[2022-03-10] VITALS (7 sets, daily range): BP systolic 107–129; BP diastolic 56–68; PULSE 87–107; RESP 14–20; TEMP 36.4–37.2; O2SAT 92–98
[2022-03-10] MEDS: Piperacillin Sodium/Tazobactam 3.375 GM in 0.9 % Sodium Chloride 50 ML IV ×3 (01:24→21:40)
[2022-03-10] MEDS: 0.9 % Sodium Chloride Flush 3 ML SYRINGE IVFLUSH ×3 (01:26→21:42)
[2022-03-10] MEDS: Heparin Sodium,Porcine 5,000 UNIT/ML VIAL 5000 UNIT SUBCUT ×2 (06:20→18:44)
[2022-03-10] MEDS: Omeprazole 20 MG CAPSULE.DR PO ×2 (06:23→18:45)
[2022-03-10 07:18] LABS: B Type Natriuretic Peptide 76 pg/mL (<100)
[2022-03-10 07:28] LABS: Anion Gap 13 (12-20); Blood Urea Nitrogen 24 mg/dL (9-16); Calcium 8.1 mg/dL (8.4-10.2); Carbon Dioxide 27 mmol/L (22-29); Chloride 99 mmol/L (96-108); Creatinine Clr Calc Pharmacy 36.6; Estimated Glomerular Filt Rate 48; Glucose Random 104 mg/dL (60-115); Potassium 3.4 mmol/L (3.3-5.1); Sodium 136 mmol/L (135-145)
--- NOTE | 2022-03-10 08:52 | PM.PNGS ---
Subjective Subjective Date of Service: 03/10/22 Interval history: some shortness of breath tolerating clear liquids ileostomy with some stools Physical Exam Vital Signs: Vital Signs: Last Vital Signs Temp 99.0 F 03/10/22 07:53 Pulse 95 03/10/22 07:53 Resp 20 03/10/22 07:53 BP 124/61 03/10/22 07:53 Pulse Ox 98 03/10/22 07:53 O2 Del Method Oxymask 03/10/22 07:53 O2 Flow Rate 03/10/22 07:53 Oxygen Flow Rate 03/10/22 07:00 BMI result Body Mass Index 22.1 Const: Other: appears comfortable Resp: Other: on O2 by mask mildly SOB Cardio: Rate: regular rate GI: Other: incision clean and dry, ileostomy with some stools Palpation (GI): Soft to palpation, not firm and no guarding Objective Data Active Medications Albuterol Sulfate (Albuterol Sulfate (0.042%) 1.25 Mg/3 Ml Vial.Neb) 1.25 mg INHALE RQ4H PRN PRN Reason: Wheezing Albuterol/Ipratropium (Albuterol/Iprat 2.5/0.5mg 3 Ml Ampul.Neb) 3 ml INHALE RQ4H PRN PRN Reason: Shortness of Breath/Wheezing Last Admin: 03/08/22 17:38 Dose: 3 ml Documented By: NOLBERTO Fentanyl (Fentanyl Citrate/Pf 100 Mcg/2 Ml Vial) 25 mcg IVPUSH Q5M PRN; Protocol PRN Reason: Pain, Moderate (Pain Scale 4-6 Last Admin: 03/07/22 10:15 Dose: 25 mcg Documented By: REMEDIOS Heparin Sodium (Porcine) (Heparin Sodium,Porcine 5,000 Unit/Ml Vial) 5,000 unit SUBCUT Q12H [facility] Last Admin: 03/10/22 06:20 Dose: 5,000 unit Documented By: JED Piperacillin Sod/Tazobactam (Sod 3.375 gm/ Sodium Chloride) 50 mls @ 100 mls/hr IV Q6H [facility] Last Infusion: 03/10/22 02:02 Dose: 0 mls/hr Documented By: JED Morphine Sulfate (Morphine Sulfate 4 Mg/Ml Cartridge) 3 mg IVPUSH Q3H PRN; Protocol PRN Reason: Pain, Severe (Pain Scale 7-10) Last Admin: 03/09/22 17:28 Dose: 3 mg Documented By: KILO Omeprazole (Omeprazole 20 Mg Capsule.) 20 mg PO BID@0630,1630 [facility] Last Admin: 03/10/22 06:23 Dose: 20 mg Documented By: JED Ondansetron HCl (Ondansetron Hcl 4 Mg/2 Ml Vial) 4 mg IVPUSH ONCE PRN PRN Reason: Nausea and Vomiting Oxycodone HCl (Oxycodone Hcl Immed Release 5 Mg Tablet) 10 mg PO Q4H PRN PRN Reason: Pain, Moderate (Pain Scale 4-6 Last Admin: 03/09/22 17:30 Dose: 10 mg Documented By: KILO Pharmacy Consult (Consult Rx Perform Med Rec) 1 each MISCELLANE ONCE PRN PRN Reason: Consult order Pharmacy Consult (Consult Rx Vancomycin Dosing) 1 each MISCELLANE DAILY PRN PRN Reason: Consult order Sodium Chloride (0.9 % Sodium Chloride Flush 3 Ml Syringe) 3 ml IVFLUSH [facility] Last Admin: 03/09/22 17:30 Dose: 3 ml Documented By: KILO Sodium Chloride (0.9 % Sodium Chloride Flush 3 Ml Syringe) 3 ml IVFLUSH [facility] Last Admin: 03/10/22 01:26 Dose: 3 ml Documented By: JED Labs CBC & Chem 7: 03/09/22 06:55 03/10/22 06:03 Labs: Laboratory Results - last 24 hr 03/10/22 03/10/22 06:03 06:03 Anion Gap 13 Estim Creat Clear Calc 36.6 Estimated GFR 48 Random Glucose 104 Calcium 8.1 L B-Natriuretic Peptide 76 Microbiology Microbiology Results: Microbiology 03/07/22 Unknown Urine Culture - Final Urine Catheterized - Zarco Catheter Escherichia coli 03/07/22 Unknown Gram Stain - Final Abdominal Fluid Routine Culture - Final Escherichia coli Anaerobic Culture - Preliminary Culture in progress. 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
[2022-03-10] MEDS: oxyCODONE HCl Immed Release 5 MG TABLET 10 MG PO (09:18)
[2022-03-10] MEDS: Morphine Sulfate 4 MG/ML CARTRIDGE 3 MG IVPUSH ×2 (10:52→21:41)
--- NOTE | 2022-03-10 13:35 | P.PNIM_ITS ---
Subjective Subjective Date of Service: 03/10/22 Interval History: Seen and evaluated this morning Feels better overall, Improvement of shortness of breath still requiring oxygen supplement Tolerating liquids but not having bowel movement or passing gas yet No other overnight events Review of Systems No fever, chills or weakness No chest pain, palpitation Improved shortness of breath with oxygen requirement Abdominal pain after surgery No urinary symptoms No any rash or wounds Physical Exam Vital Signs: Vital Signs: Last Vital Signs Temp 97.5 F 03/10/22 12:00 Pulse 94 03/10/22 12:00 Resp 20 03/10/22 12:00 BP 107/63 03/10/22 12:00 Pulse Ox 96 03/10/22 12:00 O2 Del Method 03/10/22 12:00 O2 Flow Rate 5 03/10/22 12:00 Oxygen Flow Rate 5 03/10/22 07:00 BMI result Body Mass Index 22.1 Const: Other: Constitutional : Alert, oriented, not in distress Neck : Normal inspection, Supple Cardiovascular : RRR, no JVP, no lower extremity edema Respiratory : fair bilateral air entry, basal fine bilateral crackles, on oxygen supplement Gastrointestinal: soft, lax, Normal bowel sounds, tenderness around the surgical site Skin : Warm, Dry Neurological : Alert & oriented x3, No focal deficit , CN 2-12 within normal Objective Data Active Medications Albuterol Sulfate (Albuterol Sulfate (0.042%) 1.25 Mg/3 Ml Vial.Neb) 1.25 mg INHALE RQ4H PRN PRN Reason: Wheezing Albuterol/Ipratropium (Albuterol/Iprat 2.5/0.5mg 3 Ml Ampul.Neb) 3 ml INHALE RQ4H PRN PRN Reason: Shortness of Breath/Wheezing Last Admin: 03/08/22 17:38 Dose: 3 ml Documented By: NOLBERTO Fentanyl (Fentanyl Citrate/Pf 100 Mcg/2 Ml Vial) 25 mcg IVPUSH Q5M PRN; Protocol PRN Reason: Pain, Moderate (Pain Scale 4-6 Last Admin: 03/07/22 10:15 Dose: 25 mcg Documented By: REMEDIOS Heparin Sodium (Porcine) (Heparin Sodium,Porcine 5,000 Unit/Ml Vial) 5,000 unit SUBCUT Q12H [facility] Last Admin: 03/10/22 06:20 Dose: 5,000 unit Documented By: JED Piperacillin Sod/Tazobactam (Sod 3.375 gm/ Sodium Chloride) 50 mls @ 100 mls/hr IV Q6H [facility] Last Admin: 03/10/22 09:23 Dose: Not Given Documented By: LIVIA Non-Admin Reason: No Access Lidocaine (Lidocaine 4 % Patch Adh..Patch) 1 patch TRANSDERMA DAILY [facility]; Protocol Morphine Sulfate (Morphine Sulfate 4 Mg/Ml Cartridge) 3 mg IVPUSH Q3H PRN; Protocol PRN Reason: Pain, Severe (Pain Scale 7-10) Last Admin: 03/10/22 10:52 Dose: 3 mg Documented By: LIVIA Omeprazole (Omeprazole 20 Mg Capsule.Dr) 20 mg PO BID@0630,1630 [facility] Last Admin: 03/10/22 06:23 Dose: 20 mg Documented By: JED Ondansetron HCl (Ondansetron Hcl 4 Mg/2 Ml Vial) 4 mg IVPUSH ONCE PRN PRN Reason: Nausea and Vomiting Oxycodone HCl (Oxycodone Hcl Immed Release 5 Mg Tablet) 10 mg PO Q4H PRN PRN Reason: Pain, Moderate (Pain Scale 4-6 Last Admin: 03/10/22 09:18 Dose: 10 mg Documented By: LIVIA Pharmacy Consult (Consult Rx Perform Med Rec) 1 each MISCELLANE ONCE PRN PRN Reason: Consult order Pharmacy Consult (Consult Rx Vancomycin Dosing) 1 each MISCELLANE DAILY PRN PRN Reason: Consult order Sodium Chloride (0.9 % Sodium Chloride Flush 3 Ml Syringe) 3 ml IVFLUSH QSHIFT [facility] Last Admin: 03/10/22 09:23 Dose: Not Given Documented By: LIVIA Non-Admin Reason: No Access Sodium Chloride (0.9 % Sodium Chloride Flush 3 Ml Syringe) 3 ml IVFLUSH QSHIFT [facility] Last Admin: 03/10/22 09:23 Dose: Not Given Documented By: LIVIA Non-Admin Reason: No Access Labs CBC & Chem 7: 03/09/22 06:55 03/10/22 06:03 Labs: Laboratory Results - last 24 hr 03/10/22 03/10/22 06:03 06:03 Anion Gap 13 Estim Creat Clear Calc 36.6 Estimated GFR 48 Random Glucose 104 Calcium 8.1 L B-Natriuretic Peptide 76 Microbiology Microbiology Results: Microbiology 03/07/22 Unknown Gram Stain - Final Abdominal Fluid Routine Culture - Final Escherichia coli Anaerobic Culture - Preliminary Culture in progress. 03/07/22 Unknown Urine Culture - Final Urine Catheterized - Zarco Catheter Escherichia coli 03/06/22 23:18 Blood Culture - Final Blood - Venous Bacteroides vulgatus Assessment and Plan (1) Acute exacerbation of CHF (congestive heart failure): Status: Acute (2) Bacteremia due to Gram-negative bacteria: Status: Acute (3) Bacteremia due to Streptococcus: Status: Acute Plan An 81 years old lady with PMH of COPD, HTN, GERD among others who presents to the hospital with shortness of breath and abdominal pain. Acute Hypoxia 2/2 acute diastolic CHF exacerbation Still on oxygen supplement BNP trended down Continue IV Lasix Monitor intake and output Wean oxygen down as tolerated Gram-negative and strip bacteremia One set growing Streptococcus viridans, 2nd set growing Bacteroides Abd fluid and urine growing pansensitive E.Coli Continue Zosyn pending final sensitivity Id input appreciated COPD Not in exacerbation P.r.n. albuterol GERD IV pantoprazole for now Hold ibuprofen HTN Hold home medications perforated bowels On Zosyn Followed by surgical team Thank you for the consult, will continue to monitor the patient with you Quality Stroke Does the patient have a stroke diagnosis?: No VTE Prior VTE?: No VTE Risk Level:: Medical - moderate - high VTE Device Contraindication: N/A - Device Ordered VTE Drug Contraindication: N/A - Med Ordered
[2022-03-10] MEDS: Lidocaine 4 % Patch ADH..PATCH 1 PATCH TRANSDERMA (14:25)
--- NOTE | 2022-03-10 14:37 | MHC.CM.PN ---
Per ROUNDS discussion, patient is not yet medically cleared for discharge r/t on oxygen (being weaned off) and ID consult pending. D/C plan is Home (self-care) vs Home with [facility] service.
[2022-03-11] VITALS (7 sets, daily range): BP systolic 94–130; BP diastolic 58–73; PULSE 86–93; RESP 18–20; TEMP 36.1–36.8; O2SAT 95–99
[2022-03-11] MEDS: Piperacillin Sodium/Tazobactam 3.375 GM in 0.9 % Sodium Chloride 50 ML IV ×4 (03:09→18:24)
[2022-03-11 06:56] LABS: Anion Gap 10 (12-20); Blood Urea Nitrogen 20 mg/dL (9-16); Calcium 8.3 mg/dL (8.4-10.2); Carbon Dioxide 31 mmol/L (22-29); Chloride 99 mmol/L (96-108); Creatinine Clr Calc Pharmacy 45.3; Estimated Glomerular Filt Rate > 60; Glucose Random 100 mg/dL (60-115); Potassium 3.4 mmol/L (3.3-5.1); Sodium 137 mmol/L (135-145)
[2022-03-11] MEDS: Lidocaine 4 % Patch ADH..PATCH 1 PATCH TRANSDERMA (08:49)
[2022-03-11] MEDS: Omeprazole 20 MG CAPSULE.DR PO ×2 (08:50→15:55)
[2022-03-11] MEDS: Heparin Sodium,Porcine 5,000 UNIT/ML VIAL 5000 UNIT SUBCUT ×2 (08:50→18:21)
[2022-03-11] MEDS: 0.9 % Sodium Chloride Flush 3 ML SYRINGE IVFLUSH ×2 (08:50→15:55)
[2022-03-11] MEDS: Furosemide 40 MG/4 ML VIAL IVPUSH (08:51)
--- NOTE | 2022-03-11 10:14 | P.PNIM_ITS ---
Subjective Subjective Date of Service: 03/11/22 Interval History: Seen and evaluated this morning Feels better overall, ostomy is working and passing stool Improvement of shortness of breath with decreased oxygen requirement No other overnight events Review of Systems No fever, chills or weakness No chest pain, palpitation Improved shortness of breath with oxygen requirement Abdominal pain after surgery No urinary symptoms No any rash or wounds Physical Exam Vital Signs: Vital Signs: Last Vital Signs Temp 98.2 F 03/11/22 08:00 Pulse 86 03/11/22 08:00 Resp 20 03/11/22 08:00 BP 125/63 03/11/22 08:00 Pulse Ox 99 03/11/22 08:00 O2 Del Method 03/11/22 08:00 O2 Flow Rate 4 03/11/22 08:00 Oxygen Flow Rate 5 03/10/22 07:00 BMI result Body Mass Index 22.1 Const: Other: Constitutional : Alert, oriented, not in distress Neck : Normal inspection, Supple Cardiovascular : RRR, no JVP, no lower extremity edema Respiratory : fair bilateral air entry, decreased basal fine bilateral crackles, on oxygen supplement Gastrointestinal: soft, lax, Normal bowel sounds, tenderness around the surgical site Skin : Warm, Dry Neurological : Alert & oriented x3, No focal deficit , CN 2-12 within normal Objective Data Active Medications Albuterol Sulfate (Albuterol Sulfate (0.042%) 1.25 Mg/3 Ml Vial.Neb) 1.25 mg INHALE RQ4H PRN PRN Reason: Wheezing Albuterol/Ipratropium (Albuterol/Iprat 2.5/0.5mg 3 Ml Ampul.Neb) 3 ml INHALE RQ4H PRN PRN Reason: Shortness of Breath/Wheezing Last Admin: 03/08/22 17:38 Dose: 3 ml Documented By: NOLBERTO Fentanyl (Fentanyl Citrate/Pf 100 Mcg/2 Ml Vial) 25 mcg IVPUSH Q5M PRN; Protocol PRN Reason: Pain, Moderate (Pain Scale 4-6 Last Admin: 03/07/22 10:15 Dose: 25 mcg Documented By: REMEDIOS Furosemide (Furosemide 40 Mg/4 Ml Vial) 40 mg IVPUSH DAILY [facility]; Protocol Last Admin: 03/11/22 08:51 Dose: 40 mg Documented By: KILO Heparin Sodium (Porcine) (Heparin Sodium,Porcine 5,000 Unit/Ml Vial) 5,000 unit SUBCUT Q12H [facility] Last Admin: 03/11/22 08:50 Dose: 5,000 unit Documented By: KILO Piperacillin Sod/Tazobactam (Sod 3.375 gm/ Sodium Chloride) 50 mls @ 100 mls/hr IV Q6H [facility] Last Infusion: 03/11/22 09:42 Dose: 0 mls/hr Documented By: KILO Lidocaine (Lidocaine 4 % Patch Adh..Patch) 1 patch TRANSDERMA DAILY [facility]; Protocol Last Admin: 03/11/22 08:49 Dose: 1 patch Documented By: KILO Morphine Sulfate (Morphine Sulfate 4 Mg/Ml Cartridge) 3 mg IVPUSH Q3H PRN; Protocol PRN Reason: Pain, Severe (Pain Scale 7-10) Last Admin: 03/10/22 21:41 Dose: 3 mg Documented By: RITESH Omeprazole (Omeprazole 20 Mg Capsule.Dr) 20 mg PO BID@0630,1630 [facility] Last Admin: 03/11/22 08:50 Dose: 20 mg Documented By: KILO Ondansetron HCl (Ondansetron Hcl 4 Mg/2 Ml Vial) 4 mg IVPUSH ONCE PRN PRN Reason: Nausea and Vomiting Oxycodone HCl (Oxycodone Hcl Immed Release 5 Mg Tablet) 10 mg PO Q4H PRN PRN Reason: Pain, Moderate (Pain Scale 4-6 Last Admin: 03/10/22 09:18 Dose: 10 mg Documented By: LIVIA Pharmacy Consult (Consult Rx Perform Med Rec) 1 each MISCELLANE ONCE PRN PRN Reason: Consult order Pharmacy Consult (Consult Rx Vancomycin Dosing) 1 each MISCELLANE DAILY PRN PRN Reason: Consult order Sodium Chloride (0.9 % Sodium Chloride Flush 3 Ml Syringe) 3 ml IVFLUSH QSHIFT [facility] Last Admin: 03/11/22 08:50 Dose: 3 ml Documented By: KILO Sodium Chloride (0.9 % Sodium Chloride Flush 3 Ml [facility]) [facility] Last Admin: 03/11/22 08:50 Dose: Not Given Documented By: KILO Non-Admin Reason: See Note Labs CBC & Chem 7: 03/09/22 06:55 03/11/22 05:58 Labs: Laboratory Results - last 24 hr 03/11/22 05:58 Anion Gap 10 L Estim Creat Clear Calc 45.3 Estimated GFR > 60 Random Glucose 100 Calcium 8.3 L Microbiology Microbiology Results: Microbiology 03/07/22 Unknown Gram Stain - Final Abdominal Fluid Routine Culture - Final Escherichia coli Anaerobic Culture - Preliminary Culture in progress. 03/07/22 Unknown Urine Culture - Final Urine Catheterized - Zarco Catheter Escherichia coli Assessment and Plan (1) Acute exacerbation of CHF (congestive heart failure): Status: Acute (2) Bacteremia due to Gram-negative bacteria: Status: Acute (3) Bacteremia due to Streptococcus: Status: Acute Plan An 81 years old lady with PMH of COPD, HTN, GERD among others who presents to the hospital with shortness of breath and abdominal pain. Acute Hypoxia 2/2 acute diastolic CHF exacerbation Still on oxygen supplement BNP trended down Continue IV Lasix Monitor intake and output Wean oxygen down as tolerated Gram-negative and strip bacteremia One set growing Streptococcus viridans, 2nd set growing Bacteroides Abd fluid and urine growing pansensitive E.Coli Continue Zosyn pending final sensitivity Id input appreciated, finish total of 14 days of antibiotics COPD Not in exacerbation P.r.n. albuterol GERD IV pantoprazole for now Hold ibuprofen HTN Hold home medications perforated bowels On Zosyn Followed by surgical team Thank you for the consult, will continue to monitor the patient with you Quality Stroke Does the patient have a stroke diagnosis?: No VTE Prior VTE?: No VTE Risk Level:: Medical - moderate - high VTE Device Contraindication: N/A - Device Ordered VTE Drug Contraindication: N/A - Med Ordered
[2022-03-11] MEDS: oxyCODONE HCl Immed Release 5 MG TABLET 10 MG PO (10:23)
[2022-03-11] MEDS: Morphine Sulfate 4 MG/ML CARTRIDGE 3 MG IVPUSH ×3 (10:23→19:55)
--- NOTE | 2022-03-11 14:25 | P.PNGS_ITS ---
Subjective Subjective Date of Service: 03/11/22 Interval history: pt feeling ok no issues, stool coming out of bag, said ate some things earlier and felt ok. no nausea pain ok Physical Exam Vital Signs: Vital Signs: Last Vital Signs Temp 98.3 F 03/11/22 12:00 Pulse 93 03/11/22 12:00 Resp 20 03/11/22 12:00 BP 94/73 03/11/22 12:00 Pulse Ox 95 03/11/22 12:00 O2 Del Method 03/11/22 12:00 O2 Flow Rate 4 03/11/22 12:00 Oxygen Flow Rate 5 03/10/22 07:00 BMI result Body Mass Index 22.1 Const: General: cooperative, comfortable and no acute distress Eyes: General: appearance normal, both eyes and all related structures Resp: Effort & Inspection: normal respiratory effort and able to speak in complete sentences Auscultation: clear to auscultation bilaterally Cardio: Rate: regular rate Rhythm: regular rhythm GI: Other: soft, mild distension nontender, incision looks good, the packings removed, mucous fistula looks good, ileostomy with output some gas Extrem: General: Yes no pedal edema Objective Data Active Medications Albuterol Sulfate (Albuterol Sulfate (0.042%) 1.25 Mg/3 Ml Vial.Neb) 1.25 mg INHALE RQ4H PRN PRN Reason: Wheezing Albuterol/Ipratropium (Albuterol/Iprat 2.5/0.5mg 3 Ml Ampul.Neb) 3 ml INHALE RQ4H PRN PRN Reason: Shortness of Breath/Wheezing Last Admin: 03/08/22 17:38 Dose: 3 ml Documented By: NOLBERTO Fentanyl (Fentanyl Citrate/Pf 100 Mcg/2 Ml Vial) 25 mcg IVPUSH Q5M PRN; Protocol PRN Reason: Pain, Moderate (Pain Scale 4-6 Last Admin: 03/07/22 10:15 Dose: 25 mcg Documented By: REMEDIOS Furosemide (Furosemide 40 Mg/4 Ml Vial) 40 mg IVPUSH DAILY [facility]; Protocol Last Admin: 03/11/22 08:51 Dose: 40 mg Documented By: KILO Heparin Sodium (Porcine) (Heparin Sodium,Porcine 5,000 Unit/Ml Vial) 5,000 unit SUBCUT Q12H [facility] Last Admin: 03/11/22 08:50 Dose: 5,000 unit Documented By: KILO Piperacillin Sod/Tazobactam (Sod 3.375 gm/ Sodium Chloride) 50 mls @ 100 mls/hr IV Q6H [facility] Last Infusion: 03/11/22 13:12 Dose: 0 mls/hr Documented By: KILO Lidocaine (Lidocaine 4 % Patch Adh..Patch) 1 patch TRANSDERMA DAILY [facility]; Protocol Last Admin: 03/11/22 08:49 Dose: 1 patch Documented By: KILO Morphine Sulfate (Morphine Sulfate 4 Mg/Ml Cartridge) 3 mg IVPUSH Q3H PRN; Pr otocol PRN Reason: Pain, Severe (Pain Scale 7-10) Last Admin: 03/11/22 10:23 Dose: 3 mg Documented By: KILO Omeprazole (Omeprazole 20 Mg Capsule.Dr) 20 mg PO BID@0630,1630 [facility] Last Admin: 03/11/22 08:50 Dose: 20 mg Documented By: KILO Ondansetron HCl (Ondansetron Hcl 4 Mg/2 Ml Vial) 4 mg IVPUSH ONCE PRN PRN Reason: Nausea and Vomiting Oxycodone HCl (Oxycodone Hcl Immed Release 5 Mg Tablet) 10 mg PO Q4H PRN PRN Reason: Pain, Moderate (Pain Scale 4-6 Last Admin: 03/11/22 10:23 Dose: 10 mg Documented By: KILO Pharmacy Consult (Consult Rx Perform Med Rec) 1 each MISCELLANE ONCE PRN PRN Reason: Consult order Pharmacy Consult (Consult Rx Vancomycin Dosing) 1 each MISCELLANE DAILY PRN PRN Reason: Consult order Sodium Chloride (0.9 % Sodium Chloride Flush 3 Ml Syringe) 3 ml IVFLUSH QSHIFT [facility] Last Admin: 03/11/22 08:50 Dose: 3 ml Documented By: KILO Sodium Chloride (0.9 % Sodium Chloride Flush 3 Ml Syringe) 3 ml IVFLUSH QSHIFT [facility] Last Admin: 03/11/22 08:50 Dose: Not Given Documented By: KILO Non-Admin Reason: See Note Labs CBC & Chem 7: 03/09/22 06:55 03/11/22 05:58 Labs: Laboratory Results - last 24 hr 03/11/22 05:58 Anion Gap 10 L Estim Creat Clear Calc 45.3 Estimated GFR > 60 Random Glucose 100 Calcium 8.3 L Microbiology Microbiology Results: Microbiology 03/07/22 Unknown Gram Stain - Final Abdominal Fluid Routine Culture - Final Escherichia coli Anaerobic Culture - Final Bacteroides fragilis Bacteroides stercoris Procedures Date of Service Date of Service: 03/11/22 Progress Note: A&P Assessment and plan (1) Perforated bowel: Status: Acute Assessment and Plan: 81 maverick old female 3 days s/p right colectomy for perf bowel and 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 Time Spent With Patient Time: Total time spent is greater than 50% in coordination of care (as documented) at patient's floor/unit and/or counseling patient: Quality Stroke Does the patient have a stroke diagnosis?: No VTE Prior VTE?: No VTE Risk Level:: Medical - moderate - high VTE Device Contraindication: N/A - Device Ordered VTE Drug Contraindication: N/A - Med Ordered
[2022-03-12] MEDS: Piperacillin Sodium/Tazobactam 3.375 GM in 0.9 % Sodium Chloride 50 ML IV ×4 (02:12→18:38)
[2022-03-12] MEDS: 0.9 % Sodium Chloride Flush 3 ML SYRINGE IVFLUSH ×4 (02:15→21:05)
[2022-03-12 03:08] VITALS: BP 131/74; PULSE 93; RESP 16; TEMP 36.2; O2SAT 96
[2022-03-12] MEDS: Omeprazole 20 MG CAPSULE.DR PO ×2 (05:53→16:18)
[2022-03-12] MEDS: Heparin Sodium,Porcine 5,000 UNIT/ML VIAL 5000 UNIT SUBCUT ×2 (05:57→18:37)
[2022-03-12] MEDS: oxyCODONE HCl Immed Release 5 MG TABLET 10 MG PO ×3 (05:59→21:04)
[2022-03-12 08:00] VITALS: BP 126/65; PULSE 87; RESP 20; TEMP 36.8; O2SAT 95
[2022-03-12] MEDS: Lidocaine 4 % Patch ADH..PATCH 1 PATCH TRANSDERMA (09:36)
[2022-03-12] MEDS: Furosemide 40 MG/4 ML VIAL IVPUSH (09:37)
--- NOTE | 2022-03-12 11:21 | HO.PM.IMPN ---
Subjective Subjective Date of Service: 03/12/22 Interval History: f/u on heart failure, s/p surgery for perforated song interval hisotry: doing fairly well, no sob, Review of Systems no sob no abd pain Physical Exam Vital Signs: Vital Signs: Last Vital Signs Temp 98.2 F 03/12/22 08:00 Pulse 87 03/12/22 08:00 Resp 20 03/12/22 08:00 BP 126/65 03/12/22 08:00 Pulse Ox 95 03/12/22 08:00 O2 Del Method 03/12/22 08:00 O2 Flow Rate 4 03/12/22 08:00 Oxygen Flow Rate 5 03/10/22 07:00 BMI result Body Mass Index 22.1 Const: Other: General: AO X 3, no acute distress Resp: CTA bilateral CVS: S1,S2,RRR GI: +BS, NT, no distention Skin: No rash Neuro: motor grossly intact Psych: appropriate affect Objective Data Active Medications Albuterol Sulfate (Albuterol Sulfate (0.042%) 1.25 Mg/3 Ml Vial.Neb) 1.25 mg INHALE RQ4H PRN PRN Reason: Wheezing Albuterol/Ipratropium (Albuterol/Iprat 2.5/0.5mg 3 Ml Ampul.Neb) 3 ml INHALE RQ4H PRN PRN Reason: Shortness of Breath/Wheezing Last Admin: 03/08/22 17:38 Dose: 3 ml Documented By: NOLBERTO Furosemide (Furosemide 40 Mg/4 Ml Vial) 40 mg IVPUSH DAILY DEVORAH; Protocol Last Admin: 03/12/22 09:37 Dose: 40 mg Documented By: KILO Heparin Sodium (Porcine) (Heparin Sodium,Porcine 5,000 Unit/Ml Vial) 5,000 unit SUBCUT Q12H DEVORAH Last Admin: 03/12/22 05:57 Dose: 5,000 unit Documented By: ELIS Piperacillin Sod/Tazobactam (Sod 3.375 gm/ Sodium Chloride) 50 mls @ 100 mls/hr IV Q6H DEVORAH Last Infusion: 03/12/22 07:00 Dose: 0 mls/hr Documented By: ELIS Lidocaine (Lidocaine 4 % Patch Adh..Patch) 1 patch TRANSDERMA DAILY DEVORAH; Protocol Last Admin: 03/12/22 09:36 Dose: 1 patch Documented By: KILO Omeprazole (Omeprazole 20 Mg Capsule.Dr) 20 mg PO BID@0630,8370 [facility] Last Admin: 03/12/22 05:53 Dose: 20 mg Documented By: ELIS Ondansetron HCl (Ondansetron Hcl 4 Mg/2 Ml Vial) 4 mg IVPUSH ONCE PRN PRN Reason: Nausea and Vomiting Oxycodone HCl (Oxycodone Hcl Immed Release 5 Mg Tablet) 10 mg PO Q4H PRN PRN Reason: Pain, Moderate (Pain Scale 4-6 Last Admin: 03/12/22 05:59 Dose: 10 mg Documented By: ELIS Pharmacy Consult (Consult Rx Perform Med Rec) 1 each MISCELLANE ONCE PRN PRN Reason: Consult order Pharmacy Consult (Consult Rx Vancomycin Dosing) 1 each MISCELLANE DAILY PRN PRN Reason: Consult order Sodium Chloride (0.9 % Sodium Chloride Flush 3 Ml Syringe) 3 ml IVFLUSH QSWVFT [facility] Last Admin: 03/12/22 09:37 Dose: 3 ml Documented By: KILO Sodium Chloride (0.9 % Sodium Chloride Flush 3 Ml Syringe) [facility] Last Admin: 03/12/22 09:37 Dose: Not Given Documented By: KILO Non-Admin Reason: duplicate order Labs CBC & Chem 7: 03/09/22 06:55 03/11/22 05:58 Microbiology Microbiology Results: Microbiology 03/07/22 Unknown Gram Stain - Final Abdominal Fluid Routine Culture - Final Escherichia coli Anaerobic Culture - Final Bacteroides fragilis Bacteroides stercoris Assessment and Plan (1) Acute exacerbation of CHF (congestive heart failure): Status: Acute (2) Bacteremia due to Gram-negative bacteria: Status: Acute (3) Bacteremia due to Streptococcus: Status: Acute Plan 81 years old lady with PMH of COPD, HTN, GERD among others who presents to the hospital with shortness of breath and abdominal pain. Acute Hypoxia 2/2 acute diastolic CHF exacerbation Still on oxygen supplement BNP trended down Continue IV Lasix, change to PO lasix by tomorro Monitor intake and output , monitor BMP Wean oxygen down as tolerated Gram-negative and strep bacteremia One set growing Streptococcus viridans, 2nd set growing Bacteroides Abd fluid and urine growing pansensitive E.Coli Continue Zosyn pending final sensitivity Id input appreciated, finish total of 14 days of antibiotics COPD Not in exacerbation P.r.n. albuterol GERD IV pantoprazole for now Hold ibuprofen HTN Hold home medications perforated bowels On Zosyn Followed by surgical team Quality Stroke Does the patient have a stroke diagnosis?: No VTE Prior VTE?: No VTE Risk Level:: Medical - moderate - high VTE Device Contraindication: N/A - Device Ordered VTE Drug Contraindication: N/A - Med Ordered
[2022-03-12 12:00] VITALS: BP 118/64; PULSE 95; RESP 20; TEMP 36.9; O2SAT 93
--- NOTE | 2022-03-12 15:43 | PM.PNGS ---
Subjective Subjective Date of Service: 03/12/22 Interval history: feels well, some bladder pressure eating fine though Physical Exam Vital Signs: Vital Signs: Last Vital Signs Temp 98.4 F 03/12/22 12:00 Pulse 95 03/12/22 12:00 Resp 20 03/12/22 12:00 BP 118/64 03/12/22 12:00 Pulse Ox 93 03/12/22 12:00 O2 Del Method 03/12/22 12:00 O2 Flow Rate 4 03/12/22 12:00 Oxygen Flow Rate 5 03/10/22 07:00 BMI result Body Mass Index 22.1 Const: General: cooperative, healthy appearing, comfortable and no acute distress Resp: Auscultation: clear to auscultation bilaterally Cardio: Rate: regular rate Rhythm: regular rhythm GI: Other: soft nontender nondistended incsion looks good and ostomy working with gas and some stool Objective Data Active Medications Albuterol Sulfate (Albuterol Sulfate (0.042%) 1.25 Mg/3 Ml Vial.Neb) 1.25 mg INHALE RQ4H PRN PRN Reason: Wheezing Albuterol/Ipratropium (Albuterol/Iprat 2.5/0.5mg 3 Ml Ampul.Neb) 3 ml INHALE RQ4H PRN PRN Reason: Shortness of Breath/Wheezing Last Admin: 03/08/22 17:38 Dose: 3 ml Documented By: NOLBERTO Furosemide (Furosemide 40 Mg/4 Ml Vial) 40 mg IVPUSH DAILY DEVORAH; Protocol Last Admin: 03/12/22 09:37 Dose: 40 mg Documented By: KILO Heparin Sodium (Porcine) (Heparin Sodium,Porcine 5,000 Unit/Ml Vial) 5,000 unit SUBCUT Q12H DEVORAH Last Admin: 03/12/22 05:57 Dose: 5,000 unit Documented By: ELIS Piperacillin Sod/Tazobactam (Sod 3.375 gm/ Sodium Chloride) 50 mls @ 100 mls/hr IV Q6H [facility] Last Infusion: 03/12/22 13:48 Dose: 0 mls/hr Documented By: KILO Lidocaine (Lidocaine 4 % Patch Adh..Patch) 1 patch TRANSDERMA DAILY DEVORAH; Protocol Last Admin: 03/12/22 09:36 Dose: 1 patch Documented By: KILO Omeprazole (Omeprazole 20 Mg Capsule.) 20 mg PO BID@0630,1070 [facility] Last Admin: 03/12/22 05:53 Dose: 20 mg Documented By: ELIS Ondansetron HCl (Ondansetron Hcl 4 Mg/2 Ml Vial) 4 mg IVPUSH ONCE PRN PRN Reason: Nausea and Vomiting Oxycodone HCl (Oxycodone Hcl Immed Release 5 Mg Tablet) 10 mg PO Q4H PRN PRN Reason: Pain, Moderate (Pain Scale 4-6 Last Admin: 03/12/22 13:51 Dose: 10 mg Documented By: KILO Pharmacy Consult (Consult Rx Perform Med Rec) 1 each MISCELLANE ONCE PRN PRN Reason: Consult order Pharmacy Consult (Consult Rx Vancomycin Dosing) 1 each MISCELLANE DAILY PRN PRN Reason: Consult order Sodium Chloride (0.9 % Sodium Chloride Flush 3 Ml Syringe) 3 ml IVFLUSH [facility] Last Admin: 03/12/22 09:37 Dose: 3 ml Documented By: KILO Sodium Chloride (0.9 % Sodium Chloride Flush 3 Ml Syringe) 3 ml IVFLUSH [facility] Last Admin: 03/12/22 09:37 Dose: Not Given Documented By: KILO Non-Admin Reason: duplicate order Labs CBC & Chem 7: 03/09/22 06:55 03/11/22 05:58 Microbiology Microbiology Results: Microbiology 03/07/22 Unknown Gram Stain - Final Abdominal Fluid Routine Culture - Final Escherichia coli Anaerobic Culture - Final Bacteroides fragilis Bacteroides stercoris Procedures Date of Service Date of Service: 03/12/22 Progress Note: A&P Assessment and plan (1) Perforated bowel: Start date: 03/12/22 Status: Acute Plan pt doing well sp surgery for perforated bowel and tumor - ileostomy working and shes tolerating po diet well resp nd uti issues are ongoing but improving med team to follow Time Spent With Patient Time: Total time spent is greater than 50% in coordination of care (as documented) at patient's floor/unit and/or counseling patient: Quality Stroke Does the patient have a stroke diagnosis?: No VTE Prior VTE?: No VTE Risk Level:: Medical - moderate - high VTE Device Contraindication: N/A - Device Ordered VTE Drug Contraindication: N/A - Med Ordered
[2022-03-12 16:00] VITALS: BP 112/60; PULSE 90; RESP 18; TEMP 37.1; O2SAT 96
[2022-03-12 19:08] VITALS: BP 125/70; PULSE 86; RESP 18; TEMP 36.6; O2SAT 98
[2022-03-12 23:32] VITALS: BP 110/61; PULSE 83; RESP 20; TEMP 36.9; O2SAT 96
[2022-03-13] VITALS (10 sets, daily range): BP systolic 115–124; BP diastolic 57–73; PULSE 81–93; RESP 18–20; TEMP 35.8–36.8; O2SAT 93–99
[2022-03-13] MEDS: Piperacillin Sodium/Tazobactam 3.375 GM in 0.9 % Sodium Chloride 50 ML IV ×4 (01:29→21:47)
[2022-03-13] MEDS: 0.9 % Sodium Chloride Flush 3 ML SYRINGE IVFLUSH (01:33)
[2022-03-13] MEDS: Heparin Sodium,Porcine 5,000 UNIT/ML VIAL 5000 UNIT SUBCUT ×2 (06:45→21:47)
[2022-03-13] MEDS: Omeprazole 20 MG CAPSULE.DR PO ×2 (06:46→16:13)
[2022-03-13] MEDS: Lidocaine 4 % Patch ADH..PATCH 1 PATCH TRANSDERMA (10:18)
[2022-03-13] MEDS: Furosemide 40 MG/4 ML VIAL IVPUSH (10:18)
[2022-03-13 10:29] LABS: Blood Urea Nitrogen 21 mg/dL (9-16); Calcium 8.8 mg/dL (8.4-10.2); Creatinine Clr Calc Pharmacy 42.9; Estimated Glomerular Filt Rate 57; Glucose Random 106 mg/dL (60-115)
[2022-03-13 10:39] LABS: Anion Gap 14 (12-20); Carbon Dioxide 33 mmol/L (22-29); Chloride 96 mmol/L (96-108); Potassium 2.9 mmol/L (3.3-5.1); Sodium 140 mmol/L (135-145)
--- NOTE | 2022-03-13 10:41 | P.PNIM_ITS ---
Subjective Subjective Date of Service: 03/14/22 Interval History: f/u on heart failure, s/p surgery for perforated bowel with now ileostomy interval hisotry: doing fairly well, no sob, eating well Review of Systems no sob no abd pain Physical Exam Vital Signs: Vital Signs: Last Vital Signs Temp 96.5 F L 03/13/22 07:53 Pulse 85 03/13/22 07:53 Resp 18 03/13/22 07:53 BP 120/69 03/13/22 07:53 Pulse Ox 96 03/13/22 07:53 O2 Del Method 03/13/22 07:53 O2 Flow Rate 4 03/13/22 07:53 Oxygen Flow Rate 4 03/13/22 07:00 BMI result Body Mass Index 22.1 Const: Other: General: AO X 3, no acute distress Resp: CTA bilateral CVS: S1,S2,RRR GI: +BS, NT, no distention, ileostomy in place Skin: No rash Neuro: motor grossly intact Psych: appropriate affect Objective Data Active Medications Albuterol Sulfate (Albuterol Sulfate (0.042%) 1.25 Mg/3 Ml Vial.Neb) 1.25 mg INHALE RQ4H PRN PRN Reason: Wheezing Albuterol/Ipratropium (Albuterol/Iprat 2.5/0.5mg 3 Ml Ampul.Neb) 3 ml INHALE RQ4H PRN PRN Reason: Shortness of Breath/Wheezing Last Admin: 03/08/22 17:38 Dose: 3 ml Documented By: NOLBERTO Furosemide (Furosemide 40 Mg/4 Ml Vial) 40 mg IVPUSH DAILY DEVORAH; Protocol Last Admin: 03/13/22 10:18 Dose: 40 mg Documented By: ELLIE Heparin Sodium (Porcine) (Heparin Sodium,Porcine 5,000 Unit/Ml Vial) 5,000 unit SUBCUT Q12H [facility]ORAH Last Admin: 03/13/22 06:45 Dose: 5,000 unit Documented By: JOSE MIGUEL Piperacillin Sod/Tazobactam (Sod 3.375 gm/ Sodium Chloride) 50 mls @ 100 mls/hr IV Q6H [facility]OR[facility] Last Infusion: 03/13/22 07:27 Dose: 0 mls/hr Documented By: JOSE MIGUEL Lidocaine (Lidocaine 4 % Patch Adh..Patch) 1 patch TRANSDERMA DAILY DEVORAH; Protocol Last Admin: 03/13/22 10:18 Dose: 1 patch Documented By: ELLIE Omeprazole (Omeprazole 20 Mg Jay.) 20 mg PO BID@0630,1630 [facility] Last Admin: 03/13/22 06:46 Dose: 20 mg Documented By: JOSE MIGUEL Ondansetron HCl (Ondansetron Hcl 4 Mg/2 Ml Vial) 4 mg IVPUSH ONCE PRN PRN Reason: Nausea and Vomiting Oxycodone HCl (Oxycodone Hcl Immed Release 5 Mg Tablet) 10 mg PO Q4H PRN PRN Reason: Pain, Moderate (Pain Scale 4-6 Last Admin: 03/12/22 21:04 Dose: 10 mg Documented By: DREA Pharmacy Consult (Consult Rx Perform Med Rec) 1 each MISCELLANE ONCE PRN PRN Reason: Consult order Pharmacy Consult (Consult Rx Vancomycin Dosing) 1 each MISCELLANE DAILY PRN PRN Reason: Consult order Sodium Chloride (0.9 % Sodium Chloride Flush 3 Ml Syringe) 3 ml IVFLUSH [facility] Last Admin: 03/13/22 07:54 Dose: Not Given Documented By: ELLIE Non-Admin Reason: See Note Sodium Chloride (0.9 % Sodium Chloride Flush 3 Ml Syringe) 3 ml IVFLUSH [facility] Last Admin: 03/13/22 07:54 Dose: Not Given Documented By: ELLIE Non-Admin Reason: See Note Labs CBC & Chem 7: 03/09/22 06:55 03/13/22 23:07 Labs: Laboratory Results - last 24 hr 03/13/22 09:54 Anion Gap 14 Estim Creat Clear Calc 42.9 Estimated GFR 57 Random Glucose 106 Calcium 8.8 D Assessment and Plan (1) Acute exacerbation of CHF (congestive heart failure): Status: Acute (2) Bacteremia due to Gram-negative bacteria: Status: Acute (3) Bacteremia due to Streptococcus: Status: Acute Plan 81 years old lady with PMH of COPD, HTN, GERD among others who presents to the hospital with shortness of breath and abdominal pain. Acute Hypoxia 2/2 acute diastolic CHF exacerbation Still on oxygen supplement BNP trended down Continue IV Lasix, change to PO lasix by today Monitor intake and output , monitor BMP Wean oxygen down as tolerated Gram-negative and strep bacteremia One set growing Streptococcus viridans, 2nd set growing Bacteroides Abd fluid and urine growing pansensitive E.Coli Continue Zosyn pending final sensitivity Id input appreciated, finish total of 14 days of antibiotics COPD Not in exacerbation P.r.n. albuterol GERD PO PPI HTN--BP within normal, hold meds Hypokalemia--oral replacment perforated bowels On Zosyn Followed by surgical team Quality Stroke Does the patient have a stroke diagnosis?: No VTE Prior VTE?: No VTE Risk Level:: Medical - moderate - high VTE Device Contraindication: N/A - Device Ordered VTE Drug Contraindication: N/A - Med Ordered
--- NOTE | 2022-03-13 11:08 | P.PNGS_ITS ---
Subjective Subjective Date of Service: 03/13/22 <ORTEGA Perez - Last Filed: 03/13/22 11:22> 03/13/22 <Marty Cortez MD - Last Filed: 03/13/22 11:47> Interval history: Pt reports her breathing is okay . Appears to be on 4L O2 via NC. Mild abdominal pain, denies feeling bloated, no N/V, tolerating diet. Ostomy functioning. Purewick catheter in place. <ORTEGA Perez - Last Filed: 03/13/22 11:22> Physical Exam Vital Signs: Vital Signs: Last Vital Signs Temp 96.5 F L 03/13/22 07:53 Pulse 85 03/13/22 07:53 Resp 18 03/13/22 07:53 BP 120/69 03/13/22 07:53 Pulse Ox 96 03/13/22 07:53 O2 Del Method 03/13/22 07:53 O2 Flow Rate 4 03/13/22 07:53 Oxygen Flow Rate 4 03/13/22 07:00 BMI result Body Mass Index 22.1 <ORTEGA Perez - Last Filed: 03/13/22 11:22> Const: General: cooperative and no acute distress <ORTEGA Perez - Last Filed: 03/13/22 11:22> Orientation/consciousness: patient oriented x3 <ORTEGA Perez - Last Filed: 03/13/22 11:22> GI: Other: abdomen soft, minimally distended, appropriately tender around incision, midline incision clean and dry with brown intact, ostomy functioning with brown stool in bag, dressing over mucous fistula site C/D/I <ORTEGA Perez - Last Filed: 03/13/22 11:22> Neuro: General: patient oriented x3 <ORTEGA Perez - Last Filed: 11:22> Objective Data Active Medications Albuterol Sulfate (Albuterol Sulfate (0.042%) 1.25 Mg/3 Ml Vial.Neb) 1.25 mg INHALE RQ4H PRN PRN Reason: Wheezing Albuterol/Ipratropium (Albuterol/Iprat 2.5/0.5mg 3 Ml Ampul.Neb) 3 ml INHALE RQ4H PRN PRN Reason: Shortness of Breath/Wheezing Last Admin: 03/08/22 17:38 Dose: 3 ml Documented By: NOLBERTO Heparin Sodium (Porcine) (Heparin Sodium,Porcine 5,000 Unit/Ml Vial) 5,000 unit SUBCUT Q12H [facility] Last Admin: 03/13/22 06:45 Dose: 5,000 unit Documented By: JOSE MIGUEL Piperacillin Sod/Tazobactam (Sod 3.375 gm/ Sodium Chloride) 50 mls @ 100 mls/hr IV Q6H [facility] Last Infusion: 03/13/22 07:27 Dose: 0 mls/hr Documented By: JOSE MIGUEL Potassium Chloride () 10 meq in 100 mls @ 100 mls/hr IV Q1H [facility] Stop: 03/13/22 14:59 Lidocaine (Lidocaine 4 % Patch Adh..Patch) 1 patch TRANSDERMA DAILY [facility]; Protocol Last Admin: 03/13/22 10:18 Dose: 1 patch Documented By: ELLIE Omeprazole (Omeprazole 20 Mg Capsule.Dr) 20 mg PO BID@0630,1630 [facility] Last Admin: 03/13/22 06:46 Dose: 20 mg Documented By: JOSE MIGUEL Ondansetron HCl (Ondansetron Hcl 4 Mg/2 Ml Vial) 4 mg IVPUSH ONCE PRN PRN Reason: Nausea and Vomiting Oxycodone HCl (Oxycodone Hcl Immed Release 5 Mg Tablet) 10 mg PO Q4H PRN PRN Reason: Pain, Moderate (Pain Scale 4-6 Last Admin: 03/12/22 21:04 Dose: 10 mg Documented By: DREA Pharmacy Consult (Consult Rx Perform Med Rec) 1 each MISCELLANE ONCE PRN PRN Reason: Consult order Pharmacy Consult (Consult Rx Vancomycin Dosing) 1 each MISCELLANE DAILY PRN PRN Reason: Consult order Sodium Chloride (0.9 % Sodium Chloride Flush 3 Ml Syringe) 3 ml IVFLUSH QSHIFT [facility] Last Admin: 03/13/22 07:54 Dose: Not Given Documented By: ELLIE Non-Admin Reason: See Note Sodium Chloride (0.9 % Sodium Chloride Flush 3 Ml Syringe) 3 ml IVFLUSH QSWIFT [facility] Last Admin: 03/13/22 07:54 Dose: Not Given Documented By: ELLIE Non-Admin Reason: See Note <ORTEGA Perez - Last Filed: 03/13/22 11:22> Labs CBC & Chem 7: : 03/09/22 06:55 03/13/22 09:54 <ORTEGA Perez - Last Filed: 03/13/22 11:22> Labs: Laboratory Results - last 24 hr 03/13/22 09:54 Anion Gap 14 Estim Creat Clear Calc 42.9 Estimated GFR 57 Random Glucose 106 Calcium 8.8 D <ORTEGA Perez - Last Filed: 03/13/22 11:22> Procedures Date of Service Date of Service: 03/13/22 <ORTEGA Perez - Last Filed: 03/13/22 11:22> Progress Note: A&P Assessment and plan (1) Perforated bowel: Status: Acute <ORTEGA Perez - Last Filed: 03/13/22 11:22> Assessment and Plan: s/p laparotomy, R colon resection, end ileostomy and mucous fistula for perforated colon, ascending colon mass found intraop. 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 - Surgical margins negative. 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 Cortez <ORTEGA Perez - Last Filed: 03/13/22 11:22> s/p laparotomy, R colon resection, end ileostomy and mucous fistula for perforated colon, ascending colon mass found intraop. 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 - Surgical margins negative. 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 Cortez Patient feels well Tolerating diet Stoma functioning well Denies significant pain Abdomen soft Will discuss with hospitalist regarding discharge plan Path report as above - adenocarcinoma, T3 N2 oncology consult <Marty Cortez MD - Last Filed: 03/13/22 11:47> Time Spent With Patient Time: Total time spent is greater than 50% in coordination of care (as doc umented) at patient's floor/unit and/or counseling patient: <ORTEGA Perez - Last Filed: 03/13/22 11:22> Quality Stroke Does the patient have a stroke diagnosis?: No <ORTEGA Perez - Last Filed: 03/13/22 11:22> VTE Prior VTE?: No <ORTEGA Perez - Last Filed: 03/13/22 11:22> VTE Risk Level:: Medical - moderate - high <ORTEGA Perez - Last Filed: 03/13/22 11:22> VTE Device Contraindication: N/A - Device Ordered <ORTEGA Perez - Last Filed: 03/13/22 11:22> VTE Drug Contraindication: N/A - Med Ordered <ORTEGA Perez - Last Filed: 03/13/22 11:22>
[2022-03-13] MEDS: oxyCODONE HCl Immed Release 5 MG TABLET 10 MG PO ×2 (11:25→21:46)
--- NOTE | 2022-03-13 14:11 | PM.HEMONCCN ---
Subjective - Subjective Chief complaint: Consult for: Colon cancer. History of breast cancer. Patient: known to practice within the last 3 years Consult date: 03/13/22 Requesting Physician: marcia Primary Care Provider: Kriss De Leon NP Medical Summary: DIAGNOSIS: 1. COLON CANCER. 2. H/O BREAST CANCER. HPI - Consult Narrative Reason for consult: Consult for: 1. Recent colon cancer. 2. History of breast cancer. Narrative: Nereida Rowell is a pleasant 81 year old lady, with a long history of COPD, who came to the emergency room because of shortness of breath and abdominal pain. She said that she does get short of breath frequently because of her COPD. She follows with Dr. Shirley regularly. She started to have abdominal pain usually around 02:00 o'clock in the afternoon of, March 06. She said this is mostly on the right but was diffuse. She has had a lower intensity pain on and off on the abdomen past few weeks. She had a CAT scan done in the ER showing pneumoperitoneum, with what appeared to be a very thickened area of the ascending colon with distal collapse, which is the likely lesion of the perforation. There is suggestion of a mass in the area as well or colitis. She underwent Ileocolectomy on 03/07, by Dr. Cortez. 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 Tumor size 4 point hypertensive 0 cm. Tumor site ascending colon near hepatic flexure. Macroscopic tumor perforation: Not identified. Bowel perforated it level of cecum due to obstruction. Histologic grade: Grade 2-3. Invasion extent: Subserosa. Number deposits: 0. LVI: Not identified. Perineural invasion: Not identified. Metastatic carcinoma identified in 10/20 lymph nodes. Stage:pT3,N2b. [facility] [place] Medical History: Anemia B12 deficiency Breast cancer Chronic restrictive lung disease COPD (chronic obstructive pulmonary disease) Dyspnea Emphysema lung GERD (gastroesophageal reflux disease) Hypertension Osteoporosis Pulmonary nodule Tachycardia Wrist fracture, bilateral Family History: Vaginal cancer Surgical History: H/O colectomy H/O hysterectomy with oophorectomy History of appendectomy History of cataract surgery History of lumpectomy of right breast Hx of colonoscopy Hx of esophagogastroduodenoscopy Hx of lumpectomy S/P excision of lipoma Her last colonoscopy was in 2015 and this showed diverticulosis. Review of Systems - Constitutional Reports system reviewed and no additional complaints, except as documented, Reports anorexia, Reports fatigue, Reports lack of energy, Reports malaise, Reports weakness, Reports weight loss - Eyes Reports system reviewed and no additional complaints, except as documented - ENT Reports system reviewed and no additional complaints, except as documented - Cardiovascular Reports system reviewed and no additional complaints, except as documented - Respiratory Reports no additional respiratory complaints - Gastrointestinal Reports system reviewed and no additional complaints, except as documented, Reports abdominal pain, Reports feeling full early, Reports dyspepsia, Reports nausea - Genitourinary Reports no additional female genitourinary complaints - Musculoskeletal Reports system reviewed and no additional complaints, except as documented - Integumentary/Breasts Skin/Breast: Reports no additional skin complaints - Neurologic Denies focal weakness, Denies convulsions - Psychiatric Reports system reviewed and no additional complaints, except as documented - Endocrine Reports no additional endocrine complaints - Hematologic/Lymphatic Reports system reviewed and no additional complaints, except as documented - Allergic/Immunologic Reports system reviewed and no additional complaints, except as documented Oncology Screenings - ECOG Performance Status ECOG Performance Status: 2 [facility] Medical History: Medical History (Last Reviewed 03/10/22 @ 11:31 by Chloe Robb, PT) Anemia B12 deficiency Bacteremia due to Gram-negative bacteria Breast cancer Chronic restrictive lung disease COPD (chronic obstructive pulmonary disease) Dyspnea Emphysema lung GERD (gastroesophageal reflux disease) Hypertension Osteoporosis Pulmonary nodule Sepsis Tachycardia Wrist fracture, bilateral Functional capacity: bed bound Patient : No Family History: Family History (Last Reviewed 03/08/22 @ 15:42 by Lorri Miller MD) Other Vaginal cancer Family history: reviewed and not pertinent Surgical History: Surgical History (Last Reviewed 03/10/22 @ 11:31 by Chloe Robb, PT) H/O colectomy H/O hysterectomy with oophorectomy History of appendectomy History of cataract surgery History of lumpectomy of right breast Hx of colonoscopy Hx of esophagogastroduodenoscopy Hx of lumpectomy S/P excision of lipoma Social History: Social History (Last Reviewed 03/08/22 @ 15:42 by Lorri Miller MD) Living Situation History: Household Members: None Are you a primary healthcare architect to a significant other at home: No Do you presently have visiting nurse or other home services: No Alcohol History Details: Currently Displaying Signs/Symptoms of Alcohol Withdrawal: No Tobacco History: Patient Tobacco Use Status: Former Tobacco user Tobacco use type: Cigarette Years Smoked: 25 years Second Hand Smoke Exposure: No Substance Use History: Use of substances other than those prescribed or required for medical reasons: No Currently Displaying Signs/Symptoms of Drug Intoxication Withdrawal: No Advance Directives: Advance Directives: No Advance Directives Information Provided: Advance Directives Information Provided comment: declined Nutrition Assessment: Patient : No Occupation Assessmet: service: No Current occupational status: disabled Current occupation: rt handed Home Medications and Allergies Current Medications: Current Medications Albuterol Sulfate (Albuterol Sulfate (0.042%) 1.25 Mg/3 Ml Vial.Neb) 1.25 mg INHALE RQ4H PRN PRN Reason: Wheezing Albuterol/Ipratropium (Albuterol/Iprat 2.5/0.5mg 3 Ml Ampul.Neb) 3 ml INHALE RQ4H PRN PRN Reason: Shortness of Breath/Wheezing Last Admin: 03/08/22 17:38 Dose: 3 ml Heparin Sodium (Porcine) (Heparin Sodium,Porcine 5,000 Unit/Ml Vial) 5,000 unit SUBCUT Q12H [facility] Last Admin: 03/13/22 06:45 Dose: 5,000 unit Piperacillin Sod/Tazobactam (Sod 3.375 gm/ Sodium Chloride) 50 mls @ 100 mls/hr IV Q6H [facility] Last Infusion: 03/13/22 12:49 Dose: Infused Potassium Chloride () 10 meq in 100 mls @ 100 mls/hr IV Q1H [facility] Stop: 03/13/22 14:59 Last Admin: 03/13/22 11:31 Dose: Not Given Lidocaine (Lidocaine 4 % Patch Adh..Patch) 1 patch TRANSDERMA DAILY [facility]; Protocol Last Admin: 03/13/22 10:18 Dose: 1 patch Omeprazole (Omeprazole 20 Mg Capsule.Dr) 20 mg PO BID@0630,1630 [facility] Last Admin: 03/13/22 06:46 Dose: 20 mg Ondansetron HCl (Ondansetron Hcl 4 Mg/2 Ml Vial) 4 mg IVPUSH ONCE PRN PRN Reason: Nausea and Vomiting Oxycodone HCl (Oxycodone Hcl Immed Release 5 Mg Tablet) 10 mg PO Q4H PRN PRN Reason: Pain, Moderate (Pain Scale 4-6 Last Admin: 03/13/22 11:25 Dose: 10 mg Pharmacy Consult (Consult Rx Perform Med Rec) 1 each MISCELLANE ONCE PRN PRN Reason: Consult order Pharmacy Consult (Consult Rx Vancomycin Dosing) 1 each MISCELLANE DAILY PRN PRN Reason: Consult order Sodium Chloride (0.9 % Sodium Chloride Flush 3 Ml Syringe) 3 ml IVFLUSH [facility] Last Admin: 03/13/22 07:54 Dose: Not Given Sodium Chloride (0.9 % Sodium Chloride Flush 3 Ml Syringe) 3 ml IVFLUSH [facility] Last Admin: 03/13/22 07:54 Dose: Not Given Home Medications Medication Instructions Recorded Confirmed Type cholecalciferol (vitamin D3) 25 25 mcg PO DAILY 06/03/20 03/07/22 History mcg (1,000 unit) tablet cyanocobalamin (vitamin B-12) 1,000 mcg IM QMONTH 06/03/20 03/07/22 History 1,000 mcg/mL injection kit (B-12 Compliance) ferrous sulfate 325 mg (65 mg 325 mg PO DAILY 06/03/20 03/07/22 History iron) tablet hydrochlorothiazide 25 mg tablet 25 mg PO DAILY 06/03/20 03/07/22 History kwoffqrzgbko-piiyonxb-qbwvcj tablet 1 tab PO DAILY 06/03/20 03/07/22 History tizanidine 4 mg tablet 4 mg PO BEDTIME PRN Muscle Pain 06/03/20 03/07/22 History omeprazole 20 mg capsule,delayed 1 cap PO DAILY 12/03/20 03/07/22 History release calcium carbonate 500 mg calcium 500 mg PO BID 03/07/22 03/07/22 History (1,250 mg) tablet Allergies Allergy/AdvReac Type Severity Reaction Status Date / Time meperidine [From Demerol] Allergy Mild VOMITING Verified 03/06/22 23:05 Physical Exam Vital signs: Vital Signs Temp 97.4 F 03/13/22 11:30 Pulse 91 03/13/22 11:30 Resp 20 03/13/22 11:30 BP 120/73 03/13/22 11:30 Pulse Ox 93 03/13/22 11:30 O2 Del Method 03/13/22 11:30 O2 Flow Rate 2 03/13/22 11:30 Intake & Output 03/12/22 03/13/22 03/13/22 18:59 06:59 18:59 Intake Total 520 / 620 100 / 620 100 / 100 Output Total 300 / 800 500 / 800 Balance 220 / -180 -400 / -180 100 / 100 Urine Output (Average ml/kg/hr) 0.41 0.69 0.69 Intake: Intake, Oral Amount 420 / 420 Intake, IV Amount 100 / 200 100 / 200 100 / 100 Piperacillin Sodium/Tazobactam 100 / 200 100 / 200 100 / 100 3.375 gm In 0.9 % Sodium Chloride 50 ml @ 100 mls/hr IV Q6H [facility] Rx#:[id number] Output: Output, Urine Amount 300 / 800 500 / 800 Other: Number of Incontinent Voids 2 Urine Color Yellow Last Bowel Movement 03/12/22 03/13/22 Weight 60.328 kg - Constitutional Present: moderate distress - Routine HEENT Exam Head: Present: normal inspection ENT: Present: mucous membranes moist - Routine Neck Exam Present: supple - Routine Respiratory Exam Present: CTAB - Routine Cardiovascular Exam Cardiovascular: Present: RRR, S1, S2 - Routine Abdominal Exam Present: distended, soft, tenderness. Absent: organomegaly - Routine Extremities Exam Present: nontender - Routine Skin Exam Present: intact, normal turgor - Routine Neurological Exam Present: alert, oriented X3 - Detailed Neurological Exam: Coma Scale Eye Opening: Spontaneous (4) Verbal Response: Oriented (5) Motor Response: Obeys commands (6) Tg Coma Scale Total: 15 Hem/Onc Consult Result - Labs CBC & Chem 7: 03/09/22 06:55 03/13/22 23:07 Labs: BMP 03/13/22 09:54 Sodium 140 Potassium 2.9 L Chloride 96 Carbon Dioxide 33 H BUN 21 H Creatinine 0.94 Calcium 8.8 D Assessment and Plan Patient Active problem list reviewed?: Yes (1) Colon carcinoma Status: Acute Assessment and plan: This is a pleasant 81-year-old lady with a history of breast cancer who comes to Oncology Clinic. She has not been diagnosed with colon cancer stage III. She has positive nodes so would be a candidate for systemic adjuvant chemotherapy. However she is currently recovering from the surgery. Will let her recover. I will see her as an outpatient. Will then proceed with staging workup. Then proceed with chemotherapy according to her wishes. Renal will check a baseline CEA level. 9.2. She is 81-year-old so would not be a candidate for oxaliplatin based regimen. Thank you, (2) Breast cancer Status: Acute Assessment and plan: This is a pleasant 81 year-old lady. 1. Breast cancer: 81 year-old lady with right Breast Carcinoma, stage I disease, ER positive ND positive HER-2/melina negative. She had a lumpectomy, followed by radiation. She was on Anti-estrogen therapy, which she completed in December of 2014. She currently remains in remission. Her mammogram in May of 2020 was benign. She has not been able to get a mammogram this year because of the humeral fracture. . Bone mineral density was in May 2018 and revealed osteoporosis. - Time Spent With Patient Time Spent with Patient (in minutes): 30
[2022-03-13] MEDS: Potassium Chloride Packet 20 MEQ PACKET 40 MEQ PO ×2 (17:17→21:46)
--- NOTE | 2022-03-13 18:17 | PC.NURSE ---
informed x3 of pt's K level and that pt refused IV K. Afterwards, K replaced via PO. safety and fall precautions maintained call mejía within reach
[2022-03-13 23:42] LABS: Anion Gap 15 (12-20); Blood Urea Nitrogen 23 mg/dL (9-16); Calcium 8.4 mg/dL (8.4-10.2); Carbon Dioxide 33 mmol/L (22-29); Chloride 96 mmol/L (96-108); Creatinine Clr Calc Pharmacy 35.4; Estimated Glomerular Filt Rate 46; Glucose Random 105 mg/dL (60-115); Potassium 3.7 mmol/L (3.3-5.1); Sodium 140 mmol/L (135-145)
[2022-03-14] VITALS (8 sets, daily range): BP systolic 108–131; BP diastolic 55–69; PULSE 81–87; RESP 16–19; TEMP 36.2–37; O2SAT 91–100
[2022-03-14] MEDS: 0.9 % Sodium Chloride Flush 3 ML SYRINGE IVFLUSH ×4 (01:46→20:10)
[2022-03-14] MEDS: Piperacillin Sodium/Tazobactam 3.375 GM in 0.9 % Sodium Chloride 50 ML IV ×4 (01:47→20:09)
[2022-03-14] MEDS: Heparin Sodium,Porcine 5,000 UNIT/ML VIAL 5000 UNIT SUBCUT ×2 (06:04→18:37)
[2022-03-14] MEDS: Omeprazole 20 MG CAPSULE.DR PO ×2 (06:04→18:37)
--- NOTE | 2022-03-14 08:12 | PM.PNGS ---
Subjective Subjective Date of Service: 03/14/22 <ORTEGA Perez - Last Filed: 03/14/22 08:27> 03/14/22 <Marty Cortez MD - Last Filed: 03/14/22 11:15> Interval history: Pt reports she had a good night. Pain is controlled currently. Denies N/V, able to tolerate diet. Breathing is okay ; she reports that she tried to wean O2 down yesterday but didn't tolerate it well as she felt SOB. Currently appears to be on 4L via NC. Did not get OOB yesterday, plans to do so today. <ORTEGA Perez - Last Filed: 03/14/22 08:27> Physical Exam Vital Signs: Vital Signs: Last Vital Signs Temp 97.2 F 03/14/22 03:31 Pulse 81 03/14/22 03:31 Resp 19 03/14/22 03:31 BP 131/63 03/14/22 03:31 Pulse Ox 100 03/14/22 03:31 O2 Del Method 03/13/22 16:00 O2 Flow Rate 4 03/14/22 03:31 Oxygen Flow Rate 4 03/13/22 07:00 BMI result Body Mass Index 22.1 <ORTEGA Perez - Last Filed: 03/14/22 08:27> Const: General: cooperative, comfortable and no acute distress <ORTEGA Perez - Last Filed: 03/14/22 08:27> Orientation/consciousness: patient oriented x3 <ORTEGA Perez - Last Filed: 03/14/22 08:27> GI: Other: soft, minimally distended, minimally tender around incision, midline incision clean/dry with brown intact, ostomy with brown liquid stool in bag, dressing over mucous fistula C/D/I <ORTEGA Perez - Last Filed: 03/14/22 08:27> Neuro: General: patient oriented x3 <ORTEGA Perez Last Filed: 03/14/22 08:27> Objective Data Active Medications Albuterol/Ipratropium (Albuterol/Iprat 2.5/0.5mg 3 Ml Ampul.Neb) 3 ml INHALE RQ4H PRN PRN Reason: Shortness of Breath/Wheezing Last Admin: 03/08/22 17:38 Dose: 3 ml Documented By: NOLBERTO Heparin Sodium (Porcine) (Heparin Sodium,Porcine 5,000 Unit/Ml Vial) 5,000 unit SUBCUT Q12H [facility] Last Admin: 03/14/22 06:04 Dose: 5,000 unit Documented By: DARLING Piperacillin Sod/Tazobactam (Sod 3.375 gm/ Sodium Chloride) 50 mls @ 100 mls/hr IV Q6H [facility] Last Admin: 03/14/22 06:04 Dose: 100 mls/hr Documented By: DARLING Lidocaine (Lidocaine 4 % Patch Adh..Patch) 1 patch TRANSDERMA DAILY [facility]; Protocol Last Admin: 03/13/22 10:18 Dose: 1 patch Documented By: ELLIE Omeprazole (Omeprazole 20 Mg Capsule.Dr) 20 mg PO BID@0630,1630 [facility] Last Admin: 03/14/22 06:04 Dose: 20 mg Documented By: DARLING Ondansetron HCl (Ondansetron Hcl 4 Mg/2 Ml Vial) 4 mg IVPUSH ONCE PRN PRN Reason: Nausea and Vomiting Oxycodone HCl (Oxycodone Hcl Immed Release 5 Mg Tablet) 10 mg PO Q4H PRN PRN Reason: Pain, Moderate (Pain Scale 4-6 Last Admin: 03/13/22 21:46 Dose: 10 mg Documented By: DARLING Pharmacy Consult (Consult Rx Perform Med Rec) 1 each MISCELLANE ONCE PRN PRN Reason: Consult order Pharmacy Consult (Consult Rx Vancomycin Dosing) 1 each MISCELLANE DAILY PRN PRN Reason: Consult order Sodium Chloride (0.9 % Sodium Chloride Flush 3 Ml Syringe) 3 ml IVFLUSH QSHIFT [facility] Last Admin: 03/14/22 01:46 Dose: 3 ml Documented By: DILIA Sodium Chloride (0.9 % Sodium Chloride Flush 3 Ml Syringe) 3 ml IVFLUSH QSMIFT [facility] Last Admin: 03/14/22 01:47 Dose: Not Given Documented By: DILIA Non-Admin Reason: Duplicate Order <ORTEGA Perez - Last Filed: 03/14/22 08:27> Labs CBC & Chem 7: : 07/14/22 06:55 03/13/22 23:07 <ORTEGA Perez - Last Filed: 03/14/22 08:27> Labs: Laboratory Results - last 24 hr 03/13/22 03/13/22 09:54 23:07 Anion Gap 14 15 Estim Creat Clear Calc 42.9 35.4 Estimated GFR 57 46 Random Glucose 106 105 Calcium 8.8 D 8.4 Carcinoembryonic Ag 9.20 <ORTEGA Perez - Last Filed: 03/14/22 08:27> Procedures Date of Service Date of Service: 03/14/22 <ORTEGA Perez - Last Filed: 03/14/22 08:27> Progress Note: A&P Assessment and plan (1) Perforated bowel: Status: Acute <ORTEGA Perez - Last Filed: 03/14/22 08:27> (2) Colon carcinoma: Status: Acute <ORTEGA Perez - Last Filed: 03/14/22 08:27> (3) COPD (chronic obstructive pulmonary disease): Status: Acute <ORTEGA Perez - Last Filed: 03/14/22 08:27> Assessment and Plan: s/p laparotomy, R colon resection, end ileostomy and mucous fistula for perforated colon, ascending colon mass found intraop determined on path to be adenocarcinoma, T3N2. Regular diet Replete electrolytes as needed Wean O2 as able Ostomy care OOB/ambulation/IS IV Zosyn (14d total course abx per ID) Appreciate hospitalist involvement Appreciate oncology involvement- outpt followup Will discuss anticipated discharge with medicine and case management; may need STR Discussed with Dr. Cortez <ORTEGA Perez - Last Filed: 03/14/22 08:27> s/p laparotomy, R colon resection, end ileostomy and mucous fistula for perforated colon, ascending colon mass found intraop determined on path to be adenocarcinoma, T3N2. Regular diet Replete electrolytes as needed Wean O2 as able Ostomy care OOB/ambulation/IS IV Zosyn (14d total course abx per ID) Appreciate hospitalist involvement Appreciate oncology involvement- outpt followup Will discuss anticipated discharge with medicine and case management; may need STR Discussed with Dr. Cortez a little depressed tolerating diet stoma functioning incisions clean abd soft plan SNF/Rehab wean off O2 dw her closest next of kin Nora seen and examined independently - agree with ORTEGA Cavanaugh <Marty Cortez MD - Last Filed: 03/14/22 11:15> Time Spent With Patient Time: Total time spent is greater than 50% in coordination of care (as documented) at patient's floor/unit and/or counseling patient: <ORTEGA Perez - Last Filed: 03/14/22 08:27> Quality Stroke Does the patient have a stroke diagnosis?: No <ORTEGA Perez - Last Filed: 03/14/22 08:27> VTE Prior VTE?: No <ORTEGA Perez - Last Filed: 03/14/22 08:27> VTE Risk Level:: Medical - moderate - high <ORTEGA Perez - Last Filed: 03/14/22 08:27> VTE Device Contraindication: N/A - Device Ordered <ORTEGA Perez - Last Filed: 03/14/22 08:27> VTE Drug Contraindication: N/A - Med Ordered <ORTEGA Perez - Last Filed: 03/14/22 08:27>
--- NOTE | 2022-03-14 09:37 | MHC.CM.PN ---
CM RECEIVED CALL FROM SURGICAL PA REPORTING PT WILL BE CLEARED FOR D/C EARLY TODAY, CM WILL MEET W/PT TO DISCUSS BED OFFERS SHE WANTED [facility] HOWEVER THEY ARE NOT OFFERING PT A BED, PT HAS RECEIVED BED OFFERS FROM MULTIPLE OTHER SNF'S AND CM WILL REVIEW W/PT.
--- NOTE | 2022-03-14 10:43 | P.PNIM_ITS ---
Subjective Subjective Date of Service: 03/14/22 Interval History: f/u on heart failure, s/p surgery for perforated bowel with now ileostomy interval hisotry: no new issues, no sob, no hypoxia Review of Systems no sob no abd pain Physical Exam Vital Signs: Vital Signs: Last Vital Signs Temp 98.3 F 03/14/22 08:00 Pulse 84 03/14/22 08:00 Resp 18 03/14/22 08:00 BP 108/58 L 03/14/22 08:00 Pulse Ox 99 03/14/22 08:00 O2 Del Method 03/14/22 08:00 O2 Flow Rate 4 03/14/22 08:00 Oxygen Flow Rate 4 03/14/22 07:00 BMI result Body Mass Index 22.1 Const: Other: General: AO X 3, no acute distress Resp: CTA bilateral CVS: S1,S2,RRR GI: +BS, NT, no distention, ileostomy in place Skin: No rash Neuro: motor grossly intact Psych: appropriate affect Objective Data Active Medications Albuterol/Ipratropium (Albuterol/Iprat 2.5/0.5mg 3 Ml Ampul.Neb) 3 ml INHALE RQ4H PRN PRN Reason: Shortness of Breath/Wheezing Last Admin: 03/08/22 17:38 Dose: 3 ml Documented By: NOLBERTO Heparin Sodium (Porcine) (Heparin Sodium,Porcine 5,000 Unit/Ml Vial) 5,000 unit SUBCUT Q12H [facility] Last Admin: 03/14/22 06:04 Dose: 5,000 unit Documented By: DARLING Piperacillin Sod/Tazobactam (Sod 3.375 gm/ Sodium Chloride) 50 mls @ 100 mls/hr IV Q6H [facility] Last Infusion: 03/14/22 09:02 Dose: 0 mls/hr Documented By: HI Lidocaine (Lidocaine 4 % Patch Adh..Patch) 1 patch TRANSDERMA DAILY [facility]; Protocol Last Admin: 03/13/22 10:18 Dose: 1 patch Documented By: ELLIE Omeprazole (Omeprazole 20 Mg Capsule.) 20 mg PO BID@0630,1630 [facility] Last Admin: 03/14/22 06:04 Dose: 20 mg Documented By: DARLING Ondansetron HCl (Ondansetron Hcl 4 Mg/2 Ml Vial) 4 mg IVPUSH ONCE PRN PRN Reason: Nausea and Vomiting Oxycodone HCl (Oxycodone Hcl Immed Release 5 Mg Tablet) 10 mg PO Q4H PRN PRN Reason: Pain, Moderate (Pain Scale 4-6 Last Admin: 03/13/22 21:46 Dose: 10 mg Documented By: DARLING Pharmacy Consult (Consult Rx Perform Med Rec) 1 each MISCELLANE ONCE PRN PRN Reason: Consult order Pharmacy Consult (Consult Rx Vancomycin Dosing) 1 each MISCELLANE DAILY PRN PRN Reason: Consult order Sodium Chloride (0.9 % Sodium Chloride Flush 3 Ml Syringe) 3 ml IVFLUSH QSHIFT [facility] Last Admin: 03/14/22 09:02 Dose: 3 ml Documented By: HI Sodium Chloride (0.9 % Sodium Chloride Flush 3 Ml Syringe) 3 ml IVFLUSH QSHIFT [facility] Last Admin: 03/14/22 09:03 Dose: Not Given Documented By: HI Non-Admin Reason: duplicate Labs CBC & Chem 7: 03/09/22 06:55 03/13/22 23:07 Labs: Laboratory Results - last 24 hr 03/13/22 03/13/22 09:54 23:07 Anion Gap 15 Estim Creat Clear Calc 35.4 Estimated GFR 46 Random Glucose 105 Calcium 8.4 Carcinoembryonic Ag 9.20 Assessment and Plan (1) Acute exacerbation of CHF (congestive heart failure): Status: Acute (2) Bacteremia due to Gram-negative bacteria: Status: Acute (3) Bacteremia due to Streptococcus: Status: Acute Plan 81 years old lady with PMH of COPD, HTN, GERD among others who presents to the hospital with shortness of breath and abdominal pain. Acute Hypoxia 2/2 acute diastolic CHF exacerbation improved BNP trended down Continue IV Lasix, change to PO lasix by today Monitor intake and output , monitor BMP Wean oxygen down as tolerated, presently 91 on room Gram-negative and strep bacteremia One set growing Streptococcus viridans, 2nd set growing Bacteroides Abd fluid and urine growing pansensitive E.Coli Continue Zosyn pending final sensitivity Id input appreciated, finish total of 14 days of antibiotics COPD Not in exacerbation P.r.n. albuterol GERD PO PPI HTN--BP within normal, hold meds Hypokalemia--oral replacment and now normal perforated bowels On Zosyn Followed by surgical team to rehab post discharge Quality Stroke Does the patient have a stroke diagnosis?: No VTE Prior VTE?: No VTE Risk Level:: Medical - moderate - high VTE Device Contraindication: N/A - Device Ordered VTE Drug Contraindication: N/A - Med Ordered
[2022-03-14] MEDS: Furosemide 40 MG TABLET PO (12:36)
[2022-03-14] MEDS: Lidocaine 4 % Patch ADH..PATCH 1 PATCH TRANSDERMA (12:38)
[2022-03-14] MEDS: oxyCODONE HCl Immed Release 5 MG TABLET 10 MG PO (12:49)
[2022-03-15] VITALS (8 sets, daily range): BP systolic 92–128; BP diastolic 59–65; PULSE 72–90; RESP 18–20; TEMP 36.6–37; O2SAT 95–99
[2022-03-15] MEDS: Piperacillin Sodium/Tazobactam 3.375 GM in 0.9 % Sodium Chloride 50 ML IV ×2 (01:56→09:25)
[2022-03-15] MEDS: 0.9 % Sodium Chloride Flush 3 ML SYRINGE IVFLUSH ×3 (01:56→16:24)
[2022-03-15] MEDS: Omeprazole 20 MG CAPSULE.DR PO ×2 (05:26→16:23)
--- NOTE | 2022-03-15 08:29 | P.PNGS_ITS ---
Subjective Subjective Date of Service: 03/15/22 Interval history: Mood is down today Looks depressed Says she has been thinking a lot Stoma functioning well Tolerating diet but not back Physical Exam Vital Signs: Vital Signs: Last Vital Signs Temp 98.6 F 03/15/22 03:00 Pulse 72 03/15/22 03:00 Resp 20 03/15/22 03:00 BP 128/64 03/15/22 03:00 Pulse Ox 98 03/15/22 03:00 O2 Del Method 03/15/22 03:00 O2 Flow Rate 2 03/14/22 23:40 Oxygen Flow Rate 4 03/14/22 07:00 BMI result Body Mass Index 22.1 Const: Other: Looks a little depressed General: comfortable and no acute distress Resp: Effort & Inspection: normal respiratory effort GI: Other: Functioning well with good output, and dry Palpation (GI): Soft to palpation, not firm and no guarding Objective Data Active Medications Furosemide (Furosemide 40 Mg Tablet) 40 mg PO DAILY [facility]; Protocol Last Admin: 03/14/22 12:36 Dose: 40 mg Documented By: HI Heparin Sodium (Porcine) (Heparin Sodium,Porcine 5,000 Unit/Ml Vial) 5,000 unit SUBCUT Q12H [facility] Last Admin: 03/14/22 18:37 Dose: 5,000 unit Documented By: HI Piperacillin Sod/Tazobactam (Sod 3.375 gm/ Sodium Chloride) 50 mls @ 100 mls/hr IV Q6H [facility] Last Infusion: 03/15/22 02:26 Dose: 0 mls/hr Documented By: DARLING Lidocaine (Lidocaine 4 % Patch Adh..Patch) 1 patch TRANSDERMA DAILY [facility]; Protocol Last Admin: 03/14/22 12:38 Dose: 1 patch Documented By: HI Omeprazole (Omeprazole 20 Mg Capsule.) 20 mg PO BID@0630,1630 [facility] Last Admin: 03/15/22 05:26 Dose: 20 mg Documented By: DARLING Ondansetron HCl (Ondansetron Hcl 4 Mg/2 Ml Vial) 4 mg IVPUSH ONCE PRN PRN Reason: Nausea and Vomiting Oxycodone HCl (Oxycodone Hcl Immed Release 5 Mg Tablet) 5 mg PO Q4H PRN PRN Reason: Pain, Moderate (Pain Scale 4-6 Pharmacy Consult (Consult Rx Perform Med Rec) 1 each MISCELLANE ONCE PRN PRN Reason: Consult order Sodium Chloride (0.9 % Sodium Chloride Flush 3 Ml Syringe) 3 ml IVFLUSH [facility] Last Admin: 03/15/22 01:56 Dose: 3 ml Documented By: DARLING Sodium Chloride (0.9 % Sodium Chloride Flush 3 Ml Syringe) 3 ml IVFLUSH [facility] Last Admin: 03/15/22 02:49 Dose: Not Given Documented By: DARLING Non-Admin Reason: IV Running Labs CBC & Chem 7: 03/09/22 06:55 03/13/22 23:07 Procedures Date of Service Date of Service: 03/15/22 Progress Note: A&P Assessment and plan (1) Perforated bowel: Status: Acute Assessment and Plan: Status post right colon resection, ileostomy, mucous fistula Ileostomy functioning well She looks comfortable but depressed Abdomen remained soft, benign Overall doing well postop Path report shows colon cancer, T3 N2 Seen by Oncology - outpatient follow-up Discharge planning - will need to be in rehab /SNF Healthcare proxy Nora updated Time Spent With Patient Time: Total time spent is greater than 50% in coordination of care (as documented) at patient's floor/unit and/or counseling patient: Quality Stroke Does the patient have a stroke diagnosis?: No VTE Prior VTE?: No VTE Risk Level:: Medical - moderate - high VTE Device Contraindication: N/A - Device Ordered VTE Drug Contraindication: N/A - Med Ordered
[2022-03-15 09:21] LABS: Hematocrit 29.5 % (37.0-47.0); Mean Corpuscular HGB Conc 30.5 g/dl (31.0-35.0); Mean Corpuscular Hemoglobin 24.5 pg (27.0-33.0); Mean Corpuscular Volume 80.4 fL (80.0-98.0); Mean Platelet Volume 10.6 fL (9.4-12.3); Platelet Count 415 X10*3/uL (160-400); Red Blood Count 3.67 X10*6/uL (4.20-5.50); Red Cell Distribution Width 16.3 % (11.0-16.0); White Blood Count 7.2 X10*3/uL (4.8-10.8)
[2022-03-15] MEDS: Lidocaine 4 % Patch ADH..PATCH 1 PATCH TRANSDERMA (09:25)
[2022-03-15] MEDS: Furosemide 40 MG TABLET PO (09:26)
[2022-03-15] MEDS: Heparin Sodium,Porcine 5,000 UNIT/ML VIAL 5000 UNIT SUBCUT ×2 (09:26→21:02)
[2022-03-15] MEDS: oxyCODONE HCl Immed Release 5 MG TABLET PO (09:26)
[2022-03-15 09:38] LABS: Anion Gap 14 (12-20); Blood Urea Nitrogen 24 mg/dL (9-16); Calcium 8.6 mg/dL (8.4-10.2); Carbon Dioxide 32 mmol/L (22-29); Chloride 95 mmol/L (96-108); Creatinine Clr Calc Pharmacy 34.4; Estimated Glomerular Filt Rate 45; Glucose Random 127 mg/dL (60-115); Potassium 3.2 mmol/L (3.3-5.1); Sodium 138 mmol/L (135-145)
--- NOTE | 2022-03-15 10:01 | HO.PM.IMPN ---
Subjective Subjective Date of Service: 03/15/22 Interval History: f/u on heart failure, s/p surgery for perforated bowel with now ileostomy interval hisotry: no new issues, no sob, no hypoxia, her pain med fell off Review of Systems no sob no abd pain Physical Exam Vital Signs: Vital Signs: Last Vital Signs Temp 98.5 F 03/15/22 08:00 Pulse 90 03/15/22 08:00 Resp 20 03/15/22 08:00 BP 114/59 L 03/15/22 08:00 Pulse Ox 98 03/15/22 08:00 O2 Del Method 03/15/22 08:00 O2 Flow Rate 4 03/15/22 08:00 Oxygen Flow Rate 4 03/15/22 07:00 BMI result Body Mass Index 22.1 Const: Other: General: AO X 3, no acute distress Resp: CTA bilateral CVS: S1,S2,RRR GI: +BS, NT, no distention, ileostomy in place Skin: No rash Neuro: motor grossly intact Psych: appropriate affect Objective Data Active Medications Furosemide (Furosemide 40 Mg Tablet) 40 mg PO DAILY [facility]; Protocol Last Admin: 03/15/22 09:26 Dose: 40 mg Documented By: KILO Heparin Sodium (Porcine) (Heparin Sodium,Porcine 5,000 Unit/Ml Vial) 5,000 unit SUBCUT Q12H [facility] Last Admin: 03/15/22 09:26 Dose: 5,000 unit Documented By: KILO Piperacillin Sod/Tazobactam (Sod 3.375 gm/ Sodium Chloride) 50 mls @ 100 mls/hr IV Q6H [facility] Last Admin: 03/15/22 09:25 Dose: 100 mls/hr Documented By: KILO Lidocaine (Lidocaine 4 % Patch Adh..Patch) 1 patch TRANSDERMA DAILY [facility]; Protocol Last Admin: 03/15/22 09:25 Dose: 1 patch Documented By: KILO Omeprazole (Omeprazole 20 Mg Capsule.) 20 mg PO BID@0630,1630 [facility] Last Admin: 03/15/22 05:26 Dose: 20 mg Documented By: DARLING Ondansetron HCl (Ondansetron Hcl 4 Mg/2 Ml Vial) 4 mg IVPUSH ONCE PRN PRN Reason: Nausea and Vomiting Oxycodone HCl (Oxycodone Hcl Immed Release 5 Mg Tablet) 5 mg PO Q4H PRN PRN Reason: Pain, Moderate (Pain Scale 4-6 Last Admin: 03/15/22 09:26 Dose: 5 mg Documented By: KILO Pharmacy Consult (Consult Rx Perform Med Rec) 1 each MISCELLANE ONCE PRN PRN Reason: Consult order Sodium Chloride (0.9 % Sodium Chloride Flush 3 Ml Syringe) 3 ml IVFLUSH QSHIFT [facility] Last Admin: 03/15/22 01:56 Dose: 3 ml Documented By: DARLING Sodium Chloride (0.9 % Sodium Chloride Flush 3 Ml Syringe) 3 ml IVFLUSH QSHIFT [facility] Last Admin: 03/15/22 09:27 Dose: 3 ml Documented By: KILO Labs CBC & Chem 7: 03/15/22 09:15 03/15/22 09:15 Labs: Laboratory Results - last 24 hr 03/15/22 03/15/22 09:15 09:15 MCV 80.4 MCH 24.5 L MCHC 30.5 L RDW 16.3 H Plt Count 415 H D MPV 10.6 Absolute Nucleated RBC 0.000 Nucleated RBC % (auto) 0.0 Anion Gap 14 Estim Creat Clear Calc 34.4 Estimated GFR 45 Random Glucose 127 H Calcium 8.6 Assessment and Plan (1) Acute exacerbation of CHF (congestive heart failure): Status: Acute (2) Bacteremia due to Gram-negative bacteria: Status: Acute (3) Bacteremia due to Streptococcus: Status: Acute Plan 81 years old lady with PMH of COPD, HTN, GERD among others who presents to the hospital with shortness of breath and abdominal pain. Acute Hypoxia 2/2? acute diastolic CHF exacerbation improved BNP trended down PO lasix 40 mg daily at discharge Monitor intake and output , monitor BMP Wean oxygen down as tolerated, presently 91 on room and may go to rehab with O2 Perforated bowel with E.colo and Bacteroides in peritoneum, 1/2 Strep viridan, 1/2 Bacterioides fulgatus -has been on Zosyn -Change to to PO Flagyl and discuss further with ID Colon cancer Path report shows colon cancer, T3 N2 Seen by Oncology - outpatient follow-up ?COPD Not in exacerbation P.r.n. albuterol GERD PO PPI HTN--BP within normal, hold meds Hypokalemia--oral replacment to rehab post discharge Quality Stroke Does the patient have a stroke diagnosis?: No VTE Prior VTE?: No VTE Risk Level:: Medical - moderate - high VTE Device Contraindication: N/A - Device Ordered VTE Drug Contraindication: N/A - Med Ordered
[2022-03-15] MEDS: Potassium Chloride Packet 20 MEQ PACKET 40 MEQ PO (12:19)
[2022-03-15] MEDS: metroNIDAZOLE 500 MG TABLET PO ×2 (12:19→21:02)
--- NOTE | 2022-03-15 13:00 | MHC.CM.PN ---
Plan for patient to discharge to [facility] tomorrow 03/16. Secure message sent to Dr. Cortez to order covid swab. Patient and cousin Nora aware (Nora @ bedside). IMM completed.
[2022-03-15] MEDS: Morphine Sulfate 2 MG/ML CARTRIDGE IVPUSH (13:48)
[2022-03-15] MEDS: oxyCODONE HCl Immed Release 5 MG TABLET 10 MG PO ×2 (13:48→22:47)
--- NOTE | 2022-03-15 16:42 | PM.EVENT ---
Event Note Date of Service: 03/15/22 Event Note: Seen earlier on afternoon rounds Had physical therapy - still appeared very unsteady even when just standing up, unable to do much more than this Complaints of back pain Stoma continues to function Discussed with outpatient case manager - we may be able to send her to rehab tomorrow Next of kin was present (Nora) - discussed plan to with them
[2022-03-15] MEDS: Amoxicillin/Potassium Clav 875 MG TABLET PO (21:02)
[2022-03-16] MEDS: 0.9 % Sodium Chloride Flush 3 ML SYRINGE IVFLUSH ×3 (00:24→09:01)
[2022-03-16] MEDS: metroNIDAZOLE 500 MG TABLET PO ×2 (03:24→10:21)
[2022-03-16 03:25] VITALS: BP 118/63; PULSE 82; RESP 16; TEMP 37.1; O2SAT 100
[2022-03-16] MEDS: Omeprazole 20 MG CAPSULE.DR PO (05:40)
[2022-03-16] MEDS: Heparin Sodium,Porcine 5,000 UNIT/ML VIAL 5000 UNIT SUBCUT (05:40)
[2022-03-16 07:42] VITALS: BP 114/59; PULSE 86; RESP 20; TEMP 36.7; O2SAT 99
[2022-03-16] MEDS: Lidocaine 4 % Patch ADH..PATCH 1 PATCH TRANSDERMA (08:46)
[2022-03-16] MEDS: Amoxicillin/Potassium Clav 875 MG TABLET PO (08:46)
[2022-03-16] MEDS: ondansetron HCL 4 MG/2 ML VIAL IVPUSH (08:46)
[2022-03-16] MEDS: Furosemide 40 MG TABLET PO (08:46)
[2022-03-16] MEDS: Morphine Sulfate 2 MG/ML CARTRIDGE IVPUSH (08:52)
[2022-03-16 08:55] VITALS: BP 114/59; PULSE 86; O2SAT 99
--- NOTE | 2022-03-16 09:10 | P.PNGS_ITS ---
Subjective Subjective Date of Service: 03/16/22 Interval history: feels well today in good mood says she had better oral intake says she feels ready to go to Rehab Physical Exam Vital Signs: Vital Signs: Last Vital Signs Temp 98.0 F 03/16/22 07:42 Pulse 86 03/16/22 08:55 Resp 20 03/16/22 07:42 BP 114/59 L 03/16/22 08:55 Pulse Ox 99 03/16/22 08:55 O2 Del Method 03/16/22 07:42 O2 Flow Rate 3.5 03/16/22 07:42 Oxygen Flow Rate 4 03/15/22 07:00 BMI result Body Mass Index 22.1 Const: General: comfortable and no acute distress Resp: Effort & Inspection: normal respiratory effort Cardio: Rate: regular rate GI: Other: stoma viable, functioning Palpation (GI): Soft to palpation, not firm and no guarding Objective Data Active Medications Amoxicillin/Clavulanate Potassium (Amoxicillin/Potassium Clav 875 Mg Tablet) 875 mg PO BID [facility] Last Admin: 03/16/22 08:46 Dose: 875 mg Documented By: LYNN Furosemide (Furosemide 40 Mg Tablet) 40 mg PO DAILY [facility]; Protocol Last Admin: 03/16/22 08:46 Dose: 40 mg Documented By: LYNN Heparin Sodium (Porcine) (Heparin Sodium,Porcine 5,000 Unit/Ml Vial) 5,000 unit SUBCUT Q12H [facility] Last Admin: 03/16/22 05:40 Dose: 5,000 unit Documented By: CA Lidocaine (Lidocaine 4 % Patch Adh..Patch) 1 patch TRANSDERMA DAILY [facility]; Protocol Last Admin: 03/16/22 08:46 Dose: 1 patch Documented By: LYNN Metronidazole (Metronidazole 500 Mg Tablet) 500 mg PO Q8H [facility] Last Admin: 03/16/22 03:24 Dose: 500 mg Documented By: CA Morphine Sulfate (Morphine Sulfate 2 Mg/Ml Cartridge) 2 mg IVPUSH Q4H [facility]N; Protocol PRN Reason: Pain, Severe (Pain Scale 7-10) Last Admin: 03/16/22 08:52 Dose: 2 mg Documented By: LYNN Omeprazole (Omeprazole 20 Mg Jay.) 20 mg PO BID@0630,1630 [facility] Last Admin: 03/16/22 05:40 Dose: 20 mg Documented By: CA Oxycodone HCl (Oxycodone Hcl Immed Release 5 Mg Tablet) 10 mg PO Q4H PRN PRN Reason: Pain, Moderate (Pain Scale 4-6 Last Admin: 03/15/22 22:47 Dose: 10 mg Documented By: ANALIA Pharmacy Consult (Consult Rx Perform Med Rec) 1 each MISCELLANE ONCE PRN PRN Reason: Consult order Sodium Chloride (0.9 % Sodium Chloride Flush 3 Ml Syringe) 3 ml IVFLUSH QSHIFT [facility] Last Admin: 03/16/22 09:01 Dose: 3 ml Documented By: LYNN Sodium Chloride (0.9 % Sodium Chloride Flush 3 Ml Syringe) 3 ml IVFLUSH QSLAFT [facility] Last Admin: 03/16/22 09:01 Dose: Not Given Documented By: LYNN Non-Admin Reason: Duplicate Order Labs CBC & Chem 7: 03/15/22 09:15 03/15/22 09:15 Labs: Laboratory Results - last 24 hr 03/15/22 03/15/22 09:15 09:15 MCV 80.4 MCH 24.5 L MCHC 30.5 L RDW 16.3 H Plt Count 415 H D MPV 10.6 Absolute Nucleated RBC 0.000 Nucleated RBC % (auto) 0.0 Anion Gap 14 Estim Creat Clear Calc 34.4 Estimated GFR 45 Random Glucose 127 H Calcium 8.6 Procedures Date of Service Date of Service: 03/16/22 Progress Note: A&P Assessment and plan (1) Perforated bowel: Status: Acute Assessment and Plan: S/P right colon resection endileostomy, mucus fistula she has colon cancer as well now doing well postop ok to transfer to Rehab oral abx push PO intake' dw closest next of kin Nora Time Spent With Patient Time: Total time spent is greater than 50% in coordination of care (as documented) at patient's floor/unit and/or counseling patient: Quality Stroke Does the patient have a stroke diagnosis?: No VTE Prior VTE?: No VTE Risk Level:: Medical - moderate - high VTE Device Contraindication: N/A - Device Ordered VTE Drug Contraindication: N/A - Med Ordered
--- NOTE | 2022-03-16 09:55 | P.PNIM_ITS ---
Subjective Subjective Date of Service: 03/16/22 Interval History: f/u on heart failure, s/p surgery for perforated bowel with now ileostomy interval hisotry: no new issues, no sob, no hypoxia, her pain med fell off Review of Systems no sob no abd pain Physical Exam Vital Signs: Vital Signs: Last Vital Signs Temp 98.0 F 03/16/22 07:42 Pulse 86 03/16/22 08:55 Resp 20 03/16/22 07:42 BP 114/59 L 03/16/22 08:55 Pulse Ox 99 03/16/22 08:55 O2 Del Method 03/16/22 07:42 O2 Flow Rate 3.5 03/16/22 07:42 Oxygen Flow Rate 4 03/15/22 07:00 BMI result Body Mass Index 22.1 Const: Other: General: AO X 3, no acute distress Resp: CTA bilateral CVS: S1,S2,RRR GI: +BS, NT, no distention, ileostomy in place Skin: No rash Neuro: motor grossly intact Psych: appropriate affect Objective Data Active Medications Amoxicillin/Clavulanate Potassium (Amoxicillin/Potassium Clav 875 Mg Tablet) 875 mg PO BID [facility] Last Admin: 03/16/22 08:46 Dose: 875 mg Documented By: LYNN Furosemide (Furosemide 40 Mg Tablet) 40 mg PO DAILY [facility]; Protocol Last Admin: 03/16/22 08:46 Dose: 40 mg Documented By: LYNN Heparin Sodium (Porcine) (Heparin Sodium,Porcine 5,000 Unit/Ml Vial) 5,000 unit SUBCUT Q12H [facility] Last Admin: 03/16/22 05:40 Dose: 5,000 unit Documented By: CA Lidocaine (Lidocaine 4 % Patch Adh..Patch) 1 patch TRANSDERMA DAILY [facility]; Protocol Last Admin: 03/16/22 08:46 Dose: 1 patch Documented By: LYNN Metronidazole (Metronidazole 500 Mg Tablet) 500 mg PO Q8H [facility] Last Admin: 03/16/22 03:24 Dose: 500 mg Documented By: CA Morphine Sulfate (Morphine Sulfate 2 Mg/Ml Cartridge) 2 mg IVPUSH Q4H [facility]; Protocol PRN Reason: Pain, Severe (Pain Scale 7-10) Last Admin: 03/16/22 08:52 Dose: 2 mg Documented By: LYNN Omeprazole (Omeprazole 20 Mg Capsule.) 20 mg PO BID@0630,1630 [facility] Last Admin: 03/16/22 05:40 Dose: 20 mg Documented By: CA Oxycodone HCl (Oxycodone Hcl Immed Release 5 Mg Tablet) 10 mg PO Q4H PRN PRN Reason: Pain, Moderate (Pain Scale 4-6 Last Admin: 03/15/22 22:47 Dose: 10 mg Documented By: ANALIA Pharmacy Consult (Consult Rx Perform Med Rec) 1 each MISCELLANE ONCE PRN PRN Reason: Consult order Sodium Chloride (0.9 % Sodium Chloride Flush 3 Ml Syringe) [facility] [address] [facility] [facility] Last Admin: 03/16/22 09:01 Dose: 3 ml Documented By: LYNN Sodium Chloride (0.9 % Sodium Chloride Flush 3 Ml Syringe) 3 ml IVFLUSH [facility] Last Admin: 03/16/22 09:01 Dose: Not Given Documented By: LYNN Non-Admin Reason: Duplicate Order Labs CBC & Chem 7: 03/15/22 09:15 03/15/22 09:15 Assessment and Plan (1) Acute exacerbation of CHF (congestive heart failure): Status: Acute (2) Bacteremia due to Gram-negative bacteria: Status: Acute (3) Bacteremia due to Streptococcus: Status: Acute Plan 81 years old lady with PMH of COPD, HTN, GERD among others who presents to the hospital with shortness of breath and abdominal pain. Acute Hypoxia 2/2? acute diastolic CHF exacerbation improved BNP trended down PO lasix 40 mg daily at discharge Monitor intake and output , monitor BMP Wean oxygen down as tolerated, presently 91 on room and may go to rehab with O2 Perforated bowel with E.colo and Bacteroides in peritoneum, 1/2 Strep viridan, 1/2 Bacterioides fulgatus -has been on Zosyn changed to Flagyl probably for 5 more days -Change to to PO Flagyl Colon cancer Path report shows colon cancer, T3 N2 Seen by Oncology - outpatient follow-up ?COPD Not in exacerbation P.r.n. albuterol GERD PO PPI HTN--BP within normal, hold meds Hypokalemia--oral replacment to rehab post discharge Quality Stroke Does the patient have a stroke diagnosis?: No VTE Prior VTE?: No VTE Risk Level:: Medical - moderate - high VTE Device Contraindication: N/A - Device Ordered VTE Drug Contraindication: N/A - Med Ordered
[2022-03-16] MEDS: oxyCODONE HCl Immed Release 5 MG TABLET 10 MG PO (10:21)
[2022-03-16 10:48] LABS: COVID-19 Test Negative (Negative); IDNOW Serial# 16C4AD1C
--- NOTE | 2022-03-16 11:24 | PM.DS ---
DS: Providers Provider Date of Service: 03/16/22 Date of admission: 03/07/22 05:41 Primary care physician: Kriss De Leon NP Consults: 03/07/22 05:46 Consult to Hospitalist Routine Consulting Provider: Hospitalist Reason For Exam: COPD, HTN 03/08/22 14:13 Consult to Infectious Diseases Routine Consulting Provider: Lorri Miller Reason for consultation: Streptococcus ferritin bacteremia? 03/13/22 11:47 Consult to Hematology / Oncology Routine Consulting Provider: [facility] Oncology/Hematology Reason for consultation: Colon cancer, status post colon resection, ileostomy DS: Diagnosis Discharge Diagnosis (1) Acute exacerbation of CHF (congestive heart failure): Status: Acute (2) Bacteremia due to Gram-negative bacteria: Status: Acute (3) Bacteremia due to Streptococcus: Status: Acute (4) Perforated bowel: Status: Acute (5) Colon carcinoma: Status: Acute DS: Summary Hospital Course Hospital Course: 81-year-old female with history of COPD, emphysema, admitted on the toggler of March 07, 2022 because of the abdominal pain. She had a CAT scan showing free air with note of what appeared to be a tumor in the right colon and distended cecum. Underwent laparotomy that toggler. There was note of perforation in the cecum along with the tumor seen in the ascending colon. A right colon resection was done along with an end ileostomy, and mucous fistula. She was transferred to the [facility] unit postop. She was started on Zosyn. Her blood culture showed bacteremia from Gram-negative bacteria. An ID consult was also. She had some shortness of breath attributed to acute is says revision of CHF as well. She was on supplemental oxygen but she had steady improvement likely. Her diet was slowly advanced as she started to have good output from her ileostomy 2 days postoperatively. She continued to tolerate this. She had physical therapy at [facility]. She continued to tolerate and had good stoma function. She was being followed by the hospitalist service as well. At time of her discharge on March 16, she is tolerating regular diet. She has been afebrile. She has had a course of IV Zosyn since admission and will be continued on Flagyl discharge. Time spent discussing smoking cessation with patient: more than 10 minutes Time Spent with Patient Time attestation: Total time spent providing and/or coordinating discharge services: Discharge coordination time: Less than 30 minutes Quality: Safe Use of Opioids Does Pt have an Active Cancer Diagnosis on the Problem List?: Yes Opioid Measure Date for [facility] Report: 02/14/22 Opioid Measure Time for [facility] Report: 11:28 Quality: Stroke Does the patient have a stroke diagnosis?: No Physical Exam Vital Signs: Vital Signs: Last Vital Signs Temp 98.0 F 03/16/22 07:42 Pulse 86 03/16/22 08:55 Resp 20 03/16/22 07:42 BP 114/59 L 03/16/22 08:55 Pulse Ox 99 03/16/22 08:55 O2 Del Method 03/16/22 07:42 O2 Flow Rate 3.5 03/16/22 07:42 Oxygen Flow Rate 4 03/15/22 07:00 BMI result Body Mass Index 22.1 Const: General: comfortable and no acute distress Orientation/consciousness: patient oriented x3 Neck: Neck: Yes no lymphadenopathy Resp: Auscultation: clear to auscultation bilaterally Cardio: Rhythm: regular rhythm GI: Other: Soft, ileostomy functioning well, midline incision is well healed, brown intact Palpation (GI): Soft to palpation, nontender and no guarding Neuro: General: patient oriented x3 DS: Data Data Completed and Pending Completed studies during hospitalization [Text1]: Pending at discharge 03/07/22 04:44 Surgical [PTH] Routine Laboratory Results WBC 7.2 X10*3/uL (4.8-10.8) 03/15/22 09:15 RBC 3.67 X10*6/uL (4.20-5.50) L 03/15/22 09:15 Hgb 9.0 g/dl (12.0-16.0) L 03/15/22 09:15 Hct 29.5 % (37.0-47.0) L 03/15/22 09:15 MCV 80.4 fL (80.0-98.0) 03/15/22 09:15 MCH 24.5 pg (27.0-33.0) L 03/15/22 09:15 MCHC 30.5 g/dl (31.0-35.0) L 03/15/22 09:15 RDW 16.3 % (11.0-16.0) H 03/15/22 09:15 Plt Count 415 X10*3/uL (160-400) H D 03/15/22 09:15 MPV 10.6 fL (9.4-12.3) 03/15/22 09:15 Immature Gran % (Auto) 0.2 % (0.0-0.4) 03/07/22 01:55 Neut % (Auto) 72.4 % (45-73) 03/07/22 01:55 Lymph % (Auto) 10.7 % (20-40) L 03/07/22 01:55 [place] % (Auto) 13.5 % (2-11) H 03/07/22 01:55 Eos % (Auto) 2.7 % (0-4) 03/07/22 01:55 Baso % (Auto) 0.5 % (0-2) 03/07/22 01:55 Lymph # (Auto) 0.6 X10*3/uL (1.2-4.9) L 03/07/22 01:55 [place] # (Auto) 0.8 X10*3/uL (0.1-1.2) 03/07/22 01:55 Eos # (Auto) 0.2 X10*3/uL (0.0-0.4) 03/07/22 01:55 Baso # (Auto) 0.0 X10*3/uL (0.0-0.2) 03/07/22 01:55 Abs Immat Gran (auto) 0.01 X10*3/uL (0.00-0.03) 03/07/22 01:55 Absolute Neuts (auto) 4.3 x10*3/uL (2.0-8.3) 03/07/22 01:55 Absolute Nucleated RBC 0.000 X10*3/uL (0.0-0.012) 03/15/22 09:15 Nucleated RBC % (auto) 0.0 /100WBC (0.0-0.2) 03/15/22 09:15 Sodium 138 mmol/L (135-145) 03/15/22 09:15 Potassium 3.2 mmol/L (3.3-5.1) L 03/15/22 09:15 Chloride 95 mmol/L (96-108) L 03/15/22 09:15 Carbon Dioxide 32 mmol/L (22-29) H 03/15/22 09:15 Anion Gap 14 (12-20) 03/15/22 09:15 BUN 24 mg/dL (9-16) H 03/15/22 09:15 Creatinine 1.17 mg/dL (0.5-1.4) 03/15/22 09:15 Estim Creat Clear Calc 34.4 03/15/22 09:15 Estimated GFR 45 03/15/22 09:15 Random Glucose 127 mg/dL (60-115) H 03/15/22 09:15 Lactic Acid 5.1 mmol/L (0.5-2.0) H* 03/06/22 23:18 Lactic Acid F/U @ 2Hr 1.3 mmol/L (0.5-2.0) 03/07/22 01:55 Calcium 8.6 mg/dL (8.4-10.2) 03/15/22 09:15 Total Bilirubin 0.9 mg/dL (0.0-1.0) 03/06/22 23:18 Direct Bilirubin 0.4 mg/dL (0.0-0.5) 03/06/22 23:18 AST 12 U/L (5-31) 03/06/22 23:18 ALT 9 U/L (0-31) 03/06/22 23:18 Alkaline Phosphatase 89 U/L (39-117) D 03/06/22 23:18 Troponin I High Sens < 3.5 ng/L (<3.5-17.0) 03/06/22 23:18 B-Natriuretic Peptide 76 pg/mL (<100) 03/10/22 06:03 Total Protein 7.3 g/dL (6.5-8.0) 03/06/22 23:18 Albumin 4.5 g/dL (3.5-5.0) 03/06/22 23:18 Lipase 14 U/L (8-78) 03/06/22 23:18 Carcinoembryonic Ag 9.20 ng/mL 03/13/22 09:54 Urine Color YELLOW 03/07/22 03:33 Urine Appearance CLEAR 03/07/22 03:33 Urine pH 5.5 (5.0-8.0) 03/07/22 03:33 Ur Specific [place] 1.010 (1.005-1.025) 03/07/22 03:33 Urine Protein TRACE MG/DL (NEG-TRACE) 03/07/22 03:33 Urine Glucose (UA) NEG MG/DL (NEG) 03/07/22 03:33 Urine Ketones NEG MG/DL (NEG) 03/07/22 03:33 Urine Blood 1+ (NEG) H 03/07/22 03:33 Urine Nitrite NEG (NEG) 03/07/22 03:33 Ur Leukocyte Esterase 1+ (NEG) H 03/07/22 03:33 Urine RBC 1-4 /HPF (0) 03/07/22 03:33 Urine WBC 5-9 /HPF (0-4) H 03/07/22 03:33 Ur Squamous Epith Cells TRACE /LPF 03/07/22 03:33 Urine Bacteria 3+ /LPF 03/07/22 03:33 Hyaline Casts 1-4 /LPF 03/07/22 03:33 Urine Mucus 1+ /LPF 03/07/22 03:33 Stool Occult Blood NEGATIVE (NEGATIVE) 03/07/22 01:56 Urine Opiates Screen Not Detected (Not Detect) 03/07/22 03:33 Urine Fentanyl Screen Not Detected (Not Detect) 03/07/22 03:33 Ur Barbiturates Screen Not Detected (Not Detect) 03/07/22 03:33 Ur Phencyclidine Scrn Not Detected (Not Detect) 03/07/22 03:33 Ur Amphetamines Screen Not Detected (Not Detect) 03/07/22 03:33 U Benzodiazepines Scrn Not Detected (Not Detect) 03/07/22 03:33 Urine Cocaine Screen Not Detected (Not Detect) 03/07/22 03:33 U Marijuana (THC) Screen Not Detected (Not Detect) 03/07/22 03:33 Ethyl Alcohol < 10 mg/dL 03/06/22 23:18 COVID-19 (SOFIYA) Negative (Negative) 03/16/22 10:15 COVID-19 Clin Com See Note 03/16/22 10:15 Blood Type O Positive 03/07/22 02:17 Antibody Screen NEGATIVE 03/07/22 02:17 Impressions Abdomen/Pelvis CT 03/07/22 00:25 IMPRESSION: 1. Short segment of wall thickening in the proximal ascending colon, raising suspicion for a mass for which further workup (such as with colonoscopy) is recommended; alternatively, focal colitis could have possibly a similar appearance. Multiple foci of gas throughout the abdomen are consistent with perforation. The colon beyond beyond this site is relatively collapsed, concerning for a degree of associated obstruction. Small amount of free fluid also noted. 2. Enlarged right-sided mesenteric lymph node, concerning for chelsi metastasis. 3. No pulmonary embolus identified. 4. Large hiatal hernia, increased from prior. 5. Multiple bilateral renal cysts, with some associated calcifications in the right lower pole. Follow-up renal protocol CT in 6 months is advised, if not previously performed. 6. Extensive pulmonary emphysema. 7. Cholelithiasis. This critical result was discussed with Dr. Chapman on 03/07/2022 1:09 AM, and it was ascertained that the content and urgency of the report was understood at the time of direct communication. Chest CTA 03/07/22 00:25 IMPRESSION: 1. Short segment of wall thickening in the proximal ascending colon, raising suspicion for a mass for which further workup (such as with colonoscopy) is recommended; alternatively, focal colitis could have possibly a similar appearance. Multiple foci of gas throughout the abdomen are consistent with perforation. The colon beyond beyond this site is relatively collapsed, concerning for a degree of associated obstruction. Small amount of free fluid also noted. 2. Enlarged right-sided mesenteric lymph node, concerning for chelsi metastasis. 3. No pulmonary embolus identified. 4. Large hiatal hernia, increased from prior. 5. Multiple bilateral renal cysts, with some associated calcifications in the right lower pole. Follow-up renal protocol CT in 6 months is advised, if not previously performed. 6. Extensive pulmonary emphysema. 7. Cholelithiasis. This critical result was discussed with Dr. Chapman on 03/07/2022 1:09 AM, and it was ascertained that the content and urgency of the report was understood at the time of direct communication. KUB X-Ray 03/07/22 08:41 IMPRESSION: Advance NG tube by 10 cm. There is a moderate-sized hiatal hernia. Multiple dilated small bowel loops with gas. Chest X-Ray 03/08/22 09:39 IMPRESSION: Question mild CHF. Labs on day of discharge: Laboratory Results - last 24 hr 03/16/22 10:15 COVID-19 (SOFIYA) Negative COVID-19 Clin Com See Note Discharge Plan Discharge Patient Disposition: Xfer Inpatient Rehab Fac Discharge Diagnosis: perforated colon, colon cancer Referrals: Kriss De Leon NP [Primary Care Provider] - 1 Week Marty Cortez MD [Physician] - 1 Week Discharge Medications: New metronidazole 500 mg tablet 500 mg PO TID Qty: 15 0RF furosemide 40 mg Tablet 40 mg PO DAILY Qty: 30 0RF Protocol: Hold for SBP< HOLD for SBP < : 90 Continued tizanidine 4 mg tablet 4 mg PO BEDTIME PRN (Reason: Muscle Pain) ferrous sulfate 325 mg (65 mg iron) Tablet 325 mg PO DAILY Centrum Silver Tablet 1 tab PO DAILY cholecalciferol (vitamin D3) 25 mcg (1,000 unit) Tablet 25 mcg PO DAILY B-12 Compliance 1,000 mcg/mL Kit 1,000 mcg IM QMONTH omeprazole 20 mg capsule,delayed release(DR/EC) 1 cap PO DAILY calcium carbonate [Calcium 500] 500 mg calcium (1,250 mg) Tablet 500 mg PO BID Discontinued ibuprofen 800 mg tablet 800 mg PO TID PRN (Reason: for pain) Qty: 90 0RF hydrochlorothiazide 25 mg tablet 25 mg PO DAILY Discharge Orders: Discharge Order (Routine); Ordered 03/16/22 Ordered By: Marty Cortez Activity on Discharge: As tolerated Stand Alone Forms: Patient Portal Discharge page Activity Restrictions/Additional Instructions: stoma care ok to change dressings on mucus fistula on right upper quadrant with dry gauze or large Bandaid daily call office [phone] for ffup in 1-2 weeks Care Plan Goals: treat colon cancer stoma care Health Concerns: colon cancer presence of stoma COPD Plan of Treatment: Rehab/PT oral abx Assessment: doing well
[2022-03-16 11:38] VITALS: BP 118/59; PULSE 87; RESP 20; TEMP 36.4; O2SAT 98
--- NOTE | 2022-03-16 12:19 | MHC.CM.PN ---
Pt medically cleared for discharge today. Pt discharging to [facility] via S ambulance. Second IMM addressed 03/15.
== END 2022-03-16 14:50 | disposition skilled nursing facility (03) | DRG 329 ==
LOC: HO.ED 03-07 01:19 → HO.EDOVER 03-07 05:44 → HO.IMC 03-07 11:36 → HO.S3 03-15 14:59
PROVIDERS: Hospitalist; Internal Medicine; Internal Medicine Medical Oncology; Student in an Organized Health Care Education/Training Program; Admitting Provider Surgery; Emergency Provider Emergency Medicine Emergency Medical Services; PCP Nurse Practitioner Family; Visit Provider Surgery
PROC: 0DBF0ZZ Excision of Right Large Intestine, Open Approach (ICD-10-PCS; principal; 2022-03-07 02:00)
DX: C18.2 Malignant neoplasm of ascending colon (principal); I50.33 Acute on chronic diastolic (congestive) heart failure; K63.1 Perforation of intestine (nontraumatic); K65.0 Generalized (acute) peritonitis; C77.2 Secondary and unspecified malignant neoplasm of intra-abdominal lymph nodes; R78.81 Bacteremia; N39.0 Urinary tract infection, site not specified; B95.4 Other streptococcus as the cause of diseases classified elsewhere; B96.20 Unspecified Escherichia coli [E. coli] as the cause of diseases classified elsewhere; R09.02 Hypoxemia; E87.6 Hypokalemia; Z85.3 Personal history of malignant neoplasm of breast; I11.0 Hypertensive heart disease with heart failure; K21.9 Gastro-esophageal reflux disease without esophagitis; J43.9 Emphysema, unspecified; Z20.822 Contact with and (suspected) exposure to COVID-19; Z88.5 Allergy status to narcotic agent; Z79.899 Other long term (current) drug therapy
CPT/HCPCS: 36415; 71045; 71275; 74018; 74177; 80048; 80076; 80307; 81001; 82077; 82272; 82378; 83605; 83690; 83880; 84484; 85025; 85027; 86850; 86900; 86901; 87040; 87071; 87073; 87076; 87077; 87086; 87088; 87185; 87186; 87205; 87635; 88309; 88341; 88342; 93005; 94640; 96361; 96365; 96367; 96375; 96376; 97110; 97116; 97162; 97530; 99285; C1758; J0131; J0696; J1100; J1170; J1940; J2250; J2270; J2405; J2543; J2795; J3010; J3370; Q9967

== ENCOUNTER 2022-03-19 13:34 | Inpatient (IN) | payer MEDICARE, SELFPAY ==
--- NOTE | ~2022-03-19 | XR_ITS ---
EXAMINATION: XR CHEST CLINICAL INFORMATION: NG tube placement COMPARISON: CT abdomen pelvis 03/19/2022 CT chest 03/07/2022 TECHNIQUE: Frontal view of the chest was obtained. FINDINGS: The NG tube is coiled in the stomach which happens to be within the chest with its tip of the tube projecting just beneath the right mainstem bronchus. Some increased patchy density is seen at the left lung base which could represent atelectasis or aspiration. There is gaseous distention of small and large bowel with surgical brown in the midline. Chronic right humeral fracture and old left rib fractures again seen. XR/XR chest 1V IMPRESSION: The NG tube is in the stomach but the stomach is within the chest.
--- NOTE | ~2022-03-19 | CT_ITS ---
EXAMINATION: CT ABDOMEN AND PELVIS WITH CONTRAST CLINICAL INFORMATION: Abdominal pain, vomiting, recent surgery. COMPARISON: CT scan of the abdomen and pelvis dated 03/07/2022. TECHNIQUE: Multidetector CT volumetric acquisition of the abdomen and pelvis was performed after the administration of 85 mL of intravenous Omnipaque 350. The data set was reformatted in the sagittal and coronal planes and reviewed on an independent workstation. This CT examination was performed using dose optimization techniques as appropriate, variously including the following: *Automated exposure control *Adjustment of mA and/or kV according to patient size (this includes techniques or standardized protocols for targeted exams where dose is matched to indication/reason for exam; i.e. extremities or head) *Use of iterative reconstruction technique DLP: 594.63 mGy-cm. FINDINGS: LOWER CHEST: Moderate centrilobular emphysema volume loss with patchy predominantly the dependent regions of consolidation with air bronchograms seen in both lower lobes, possibly due to atelectasis or pneumonia. Small bilateral layering pleural effusions are seen. Tiny calcified lymph nodes are seen in the left infrahilar region. A large retrocardiac hiatal hernia is noted, containing the gastric fundus with large air-fluid level. There is some mass effect upon the heart, which is displaced anteriorly. LIVER, GALLBLADDER, BILIARY TREE: Liver normal size and attenuation. Calcified granuloma in the left lobe and a few tiny sub-0.5 cm sized nodular densities seen in the left lobe, too small to characterize, unchanged from prior exam No intra-or extrahepatic ductal dilatation. Hepatic and portal veins patent. Gallbladder partially distended with layering gallstones again noted. PANCREAS: Diffusely atrophic. No ductal dilatation, mass, or surrounding stranding. SPLEEN: Normal size. A few scattered calcified granulomas seen in the spleen.. Splenic vein patent. ADRENAL GLANDS: Adrenal glands normal. KIDNEYS, URETERS AND BLADDER: Kidneys bilaterally symmetric in size and function. There is moderate to severe bilateral hydroureteronephrosis. The dilated ureters seen extending to the pelvic inlet level with the more distal ureters decompressed. The bladder is markedly distended with urine extending up to just below the level of the umbilicus, measuring 20.3 x 13.6 x 16.2 cm. The bilateral hydroureteronephrosis may be related to reflux. In addition, there are multiple bilateral predominantly benign-appearing thin-walled nonenhancing cysts in the kidneys. In the lower pole of the right kidney, there is a exophytic 1.3 x 1 x 1.2 cm hypodense mass with dependent calcification and other ill-defined hypoenhancing punctate densities. This is unchanged in size from prior exam and remains incompletely characterized. PELVIC ORGANS: Status post hysterectomy and presumably oophorectomy. No suspicious adnexal mass. GASTROINTESTINAL TRACT: The patient is status post right hemicolectomy with right upper quadrant colostomy and right lower quadrant ileostomy. There is marked dilatation of the stomach and small bowel loops (measuring up to 3.7 cm in diameter) with decompression of the distal most small bowel leading up to the ileostomy. Multiple scattered air-fluid levels are seen. A transition point is seen in the mid abdomen (series 5, image 37) with no obstructing mass seen. Finding may be related to a stricture or less likely an adhesion given the early postop time course. No evidence of pneumatosis intestinalis is seen and no abnormal free air is noted in the abdomen or pelvis. There is a peripherally rim-enhancing 4.4 x 4.1 x 6.8 cm fluid collection seen posterior to the bladder, adjacent to the rectosigmoid colon, at site of previous amorphous fluid collection. This finding may represent interval development of an intra-abdominal abscess or other complex postoperative collection. ABDOMINAL WALL: Midline cutaneous brown are seen in place. Right upper quadrant colostomy and right lower quadrant ileostomy seen in place. LYMPHOVASCULAR STRUCTURES: Abdominal aorta normal in caliber with moderate atherosclerotic calcifications of the aorta and iliac vessels seen. No periaortic collections. Multiple mildly prominent small bowel mesentery lymph nodes are seen without pathologic enlargement. No abdominal or pelvic adenopathy. BONES: There is partial nonfusion of the posterior elements of L3 through L5. Partial sacralization of the L5 vertebral body is seen. Grade 1 anterolisthesis of L4 on L5 is noted. Multilevel mild vertebral spondylosis seen in the lower thoracic spine and upper lumbar spine. Moderate facet arthropathy seen in the mid and lower lumbar spine. CT/CT abdomen pelvis w con IMPRESSION: 1. Marked gaseous distention with scattered air-fluid levels of the stomach and proximal and mid small bowel loops is seen with decompression of the distal small bowel loops leading to the ileostomy. Findings are suspicious for a distal small bowel obstruction, perhaps related to a stricture or less likely adhesion in this early postoperative phase. There is also a complex peripherally rim-enhancing fluid collection is seen posterior to the bladder adjacent to the rectosigmoid colon, raising the suspicion of an abscess versus other complex fluid collection. Close clinical correlation and surgical consult is recommended. 3. Bilateral moderate to severe hydroureteronephrosis is seen, presumably related to bilateral vesicoureteral reflux given the marked urinary bladder distention. Consider straight catheter decompression of the urinary bladder 4. Incompletely characterized exophytic lower pole right renal cystic mass with punctate calcifications and question punctate internal enhancement is seen, unchanged from recent exam. Further evaluation with dedicated MRI scan of the kidneys with and without contrast is recommended to exclude an enhancing component 5. Moderate emphysema with bibasilar volume loss and consolidation. Associated small bilateral pleural effusions are seen 6. Large retrocardiac hiatal hernia. This critical result was discussed with Dr. Poole 03/19/2022, 5:16 PM and it was ascertained that the content and urgency of this report was understood at the time of direct communication.
--- NOTE | ~2022-03-19 | CT_ITS ---
EXAMINATION: CT ABDOMEN AND PELVIS WITHOUT CONTRAST CLINICAL INFORMATION: Follow-up fluid collection posterior to urinary bladder. COMPARISON: CT abdomen and pelvis 03/22/2022. TECHNIQUE: Multidetector volumetric imaging was performed from the superior aspect of the liver through the pubic symphysis. Sagittal and coronal reformatted images were obtained on the technologist's workstation. No oral or intravenous contrast. This CT examination was performed using dose optimization techniques as appropriate, variously including the following: *Automated exposure control *Adjustment of mA and/or kV according to patient size (this includes techniques or standardized protocols for targeted exams where dose is matched to indication/reason for exam; i.e. extremities or head) *Use of iterative reconstruction technique DLP: 649 mGy-cm FINDINGS: LUNG BASES: There are small bilateral pleural effusions borderline increased from prior CT 03/19/2022. There is associated posterior basilar passive atelectasis. Emphysematous changes again seen. LIVER, GALLBLADDER, AND BILIARY TREE: Within normal size, smooth in contour, parenchyma homogeneous. No intrahepatic ductal dilatation. Incidental calcified granuloma segment 2 left lobe. Fine dependent calculi in the gallbladder again demonstrated. No gallbladder wall thickening or pericholecystic inflammatory changes. PANCREAS: Atrophic, no ductal dilatation or peripancreatic inflammatory changes. SPLEEN: Normal in size. Scattered calcified granulomata. ADRENAL GLANDS: Unremarkable. KIDNEYS AND URETERS: Kidneys are normal in size with normal parenchymal thickness. There are probable multiple bilateral parapelvic renal cysts which limits assessment for superimposed hydronephrosis. There is no hydroureter on either side no ureteral calculi. No perinephric stranding. There are bilateral renal cysts as recently described. Tiny cyst anterior left lower pole is hyperdense measuring 58 HU and a 1.2 cm cyst lateral right lower pole has some peripheral calcification. 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 BLADDER: Only minimally distended, indwelling Zarco catheter present with some gas in the bladder. There is some trace excreting contrast at the bladder base. GASTROINTESTINAL TRACT: Large hiatal hernia again seen, approximately 8 x 9 cm. Nasogastric tube in stomach. Prior right hemicolectomy with there is right upper colostomy and right lower ileostomy. Small bowel distention decreased from prior exam. No pneumatosis or free air. No abdominal ascites or abdominal loculated fluid collection. ABDOMINAL WALL: Tiny fat-containing umbilical hernia under 2 cm. LYMPH NODES: No lymphadenopathy. VASCULAR: Unremarkable. PELVIC VISCERA: The loculated fluid collection right cul-de-sac is decreased in size. It is rotated since prior exam following decompression of the urinary bladder. Current measurements using axial and sagittal sequences are 5.0 x 3.3 x 3.1 cm compared with prior exam same orientation remeasured 3.5 x 6.7 x 4.5 cm. OSSEOUS STRUCTURES: No acute bony abnormality. CT/CT abdomen pelvis wo con IMPRESSION: -Loculated right posterior pelvic fluid collection slightly decreased in size from prior CT 03/19/2022. -Partial small bowel obstruction decreased. -Status post decompression urinary bladder and hydroureter following Zarco catheter. -Multiple other findings similar to previous exam.
--- NOTE | ~2022-03-19 | XR_ITS ---
EXAMINATION: XR ABDOMEN KUB CLINICAL INDICATION: Follow-up small bowel obstruction. COMPARISON: KUB from 03/07/2022. CXR from 03/20/2022. Abdomen CT from 03/19/2022. TECHNIQUE: AP view of the abdomen. FINDINGS: Persistent small pleural effusions. The NG tube is coiled within the hiatal hernia above the level the diaphragm. Loops of small bowel remain distended with gas. The small bowel loops measure up to approximately 4 cm maximum dimension, similar compared to 03/19/2022. There were findings of distal small bowel obstruction on the CT exam of 03/19/2022. The overall amount of gas in small bowel appears to have decreased compared to 03/19/2022. No interval development of pneumatosis intestinalis. No pneumoperitoneum. Skin brown project over the abdomen. Zarco catheter in place. XR/XR KUB IMPRESSION: * The tip of the NG tube is coiled within the hiatal hernia. * Although the overall amount of gas in small bowel is decreased compared to 03/19/2022, the size of the visualized loops is not appreciably changed (measure up to approximately 4 cm maximum diameter). Therefore, no significant improvement in small bowel obstruction.
--- NOTE | ~2022-03-19 | XR_ITS ---
EXAMINATION: XR CHEST CLINICAL INFORMATION: Shortness of breath and cough COMPARISON: 03/08/2022 TECHNIQUE: Frontal view of the chest was obtained. FINDINGS: There is low lung volume bilaterally with vascular redistribution and mild increased haziness bilaterally there are bibasilar atelectasis. Cardiomediastinal silhouette is not enlarged. There is likely air-containing large hiatal hernia. There is posttraumatic deformity of the proximal humerus most likely related to known treated fracture. XR/XR chest 1V IMPRESSION: Mild CHF. Large hiatal hernia.
--- NOTE | ~2022-03-19 | IR_ITS ---
PROCEDURE: IR INSERTION OF PICC CLINICAL INFORMATION: Small bowel obstruction. IV hydration. COMPARISON: None TECHNIQUE: Following explaining ultrasound fluoroscopy-guided placement of left PICC line catheter procedure, benefits and risk, a written consent was obtained. Patient was placed supine on fluoroscopy table and preliminary ultrasound imaging was obtained through the left arm. Images were obtained for documentation. A optimal site was selected along the left upper arm and marked. The marked site was cleaned and draped in usual sterile manner. A tourniquet was applied in the left arm. 1% lidocaine was injected at the marked site. A single wall needle was then advanced under sterile ultrasound guidance and left basilic vein was punctured. After obtaining venous return, thin guidewire was advanced and placed in SVC and needle withdrawn. A small skin incision was performed at the entry point. A 5 Austrian dilator sheath was advanced over the guidewire. A precut dual lumen PICC catheter was then advanced over the guidewire and through the peel-away sheath after removing the dilator. The catheter was advanced under fluoroscopy and placed in proximal SVC. The dilator and guidewire were removed and both ports of the catheter flushed with heparinized saline. Sterile dressing applied postprocedure. Patient tolerated procedure extremely well. All elements of maximal sterile barrier technique followed including use of cap, mask, sterile gown, sterile gloves, a sterile full body drape and hand hygiene. Also followed skin preparation with 2% chlorhexidine for cutaneous antisepsis, and sterile ultrasound preparation with sterile gel and probe cover when applicable. FINDINGS: On preliminary ultrasound imaging there is widely patent brachial, basilic and cephalic veins. Approximately 42 cm long 5 Austrian PICC catheter was advanced under ultrasound and fluoroscopy with the tip in distal SVC. There is no immediate complications. IR/IR cvc insert peripheral IMPRESSION: Successful ultrasound and fluoroscopy-guided 5 Austrian 42 CM long left PICC line placement. The PICC is ready for use.
--- NOTE | 2022-03-19 13:53 | ECG_ITS ---
Test Reason : chest pain Blood Pressure : / mmHG Vent. Rate : 103 BPM Atrial Rate : 103 BPM P-R Int : 134 ms QRS Dur : 078 ms QT Int : 446 ms P-R-T Axes : 024 025 033 degrees QTc Int : 584 ms Sinus tachycardia Nonspecific ST and T wave abnormality Prolonged QT Abnormal ECG When compared with ECG of 06-MAR-2022 23:11, QT prolonged Referred By: Landon Mcintyre Electronically Signed By:MARITZA TADEO
--- NOTE | 2022-03-19 13:55 | ED_ITS ---
HPI - Nausea/Vomiting/Diarrhea General Chief complaint: Nausea/Vomiting/Diarrhea Stated complaint: BNaus Time Seen by Provider: 03/19/22 13:37 Source: patient Mode of arrival: EMS Limitations: no limitations History of Present Illness HPI Narrative: This is a very nice 81 years old the female brought in by EMS from [place] becuse of vomiting since this morning, patient was recently hospitalized at [facility] because perforated cecum requiring emergency surgery/ileostomy, she was found to have colon cancer T3 N2 elicited complaint: nausea and vomiting Onset (ago): hour(s) (5) Description of diarrhea: watery Associated abdominal pain: Yes Location of pain: diffuse Radiation: diffuse Pain consistency: constant Exacerbating factors: eating Relieving factors: none Related Data Home Medications Medication Instructions Recorded Confirmed cholecalciferol (vitamin D3) 25 25 mcg PO DAILY 06/03/20 03/07/22 mcg (1,000 unit) tablet cyanocobalamin (vitamin B-12) 1,000 mcg IM QMONTH 06/03/20 03/07/22 1,000 mcg/mL injection kit (B-12 Compliance) ferrous sulfate 325 mg (65 mg 325 mg PO DAILY 06/03/20 03/07/22 iron) tablet [id number] tablet 1 tab PO DAILY 06/03/20 03/07/22 tizanidine 4 mg tablet 4 mg PO BEDTIME PRN Muscle Pain 06/03/20 03/07/22 omeprazole 20 mg capsule,delayed 1 cap PO DAILY 12/03/20 03/07/22 release calcium carbonate 500 mg calcium 500 mg PO BID 03/07/22 03/07/22 (1,250 mg) tablet Previous Rx's Medication Instructions Recorded furosemide 40 mg tablet 40 mg PO DAILY #30 tabs 03/16/22 metronidazole 500 mg tablet 500 mg PO TID #15 tabs 03/16/22 oxycodone-acetaminophen 5 mg-325 1 tab PO Q4-6H PRN pain #20 tabs 03/16/22 mg tablet (Percocet) Allergies Allergy/AdvReac Type Severity Reaction Status Date / Time meperidine [From Demerol] Allergy Mild VOMITING Verified 03/19/22 14:24 Review of Systems Constitutional: Constitutional: Reports no additional constitutional complaints Cardiovascular: Cardiovascular: Reports no additional cardiovascular complaints Gastrointestinal: Gastrointestinal: Reports vomiting PMFSH Past Medical History Medical History Anemia B12 deficiency Bacteremia due to Gram-negative bacteria Breast cancer Chronic restrictive lung disease COPD (chronic obstructive pulmonary disease) Dyspnea Emphysema lung GERD (gastroesophageal reflux disease) Hypertension Osteoporosis Pulmonary nodule Sepsis Tachycardia Wrist fracture, bilateral Surgical History H/O colectomy H/O hysterectomy with oophorectomy History of appendectomy History of cataract surgery History of lumpectomy of right breast Hx of colonoscopy Hx of esophagogastroduodenoscopy Hx of lumpectomy S/P excision of lipoma Family History Family History Other Vaginal cancer Social History Social History Household Members: None Are you a primary nurse care manager to a significant other at home: No Do you presently have visiting nurse or other home services: No Alcohol intake: never Patient Tobacco Use Status: Former Tobacco user Tobacco use type: Cigarette Years Smoked: 25 years Second Hand Smoke Exposure: No Use of substances other than those prescribed or required for medical reasons: No Advance Directives: Yes Advance Directives on File: Yes Advance Directives Date on File: 03/19/22 service: No Current occupational status: disabled Current occupation: rt handed Physical Exam Vital Signs: Vital Signs: Last Vital Signs Temp 99.8 F 03/19/22 14:24 Pulse 105 H 03/19/22 14:24 Resp 18 03/19/22 14:24 BP 151/82 H 03/19/22 14:24 Pulse Ox 97 03/19/22 14:24 O2 Del Method 03/19/22 14:24 Oxygen Flow Rate 3 03/19/22 14:24 BMI result Body Mass Index 22.6 Const: General: cooperative and no acute distress Orientation/co nsciousness: patient oriented x3 HEENT: Head: Yes normal to inspection General nose exam: Normal external n ose present Mouth: Normal oral and palatal mucosa present Neck: Neck: Yes normal visual inspection Resp: Effort & Inspection: normal respiratory effort and able to speak in complete sentences Auscultation: clear to auscultation bilaterally Cardio: Jugular venous distension: no JVD Rate: regular rate Rhythm: regular rhythm GI: Inspection: Yes normal to inspection Palpation (GI): Soft to palpation, not firm and nontender Skin: General skin exam: no rashes or lesions noted, elasticity normal and turgor normal Lesions: no lesions Rashes: no rashes Neuro: General: patient oriented x3 Course Reevaluation(s) Reevaluation #1: signed out to Dr Poole at this time waiting for lactic acid and official ct result [place] in [place] base with Dr Willard tht wants to be called back with lactic acid result,suspect SBO Time: 16:39 MDM - Nausea/Vomiting/Diarrhea Lab Data Result diagrams: 03/19/22 14:42 03/19/22 14:42 Labs: Lab Results 03/19/22 03/19/22 03/19/22 Range/Units 14:42 14:42 14:42 WBC 21.5 H (4.8-10.8) X10*3/uL RBC 4.16 L (4.20-5.50) X10*6/uL Hgb 10.1 L (12.0-16.0) g/dl Hct 33.4 L (37.0-47.0) % MCV 80.3 (80.0-98.0) fL MCH 24.3 L (27.0-33.0) pg MCHC 30.2 L (31.0-35.0) g/dl RDW 17.1 H (11.0-16.0) % Plt Count 688 H D (160-400) X10*3/uL MPV 10.8 (9.4-12.3) fL Immature Gran % (Auto) 1.8 H (0.0-0.4) % Neut % (Auto) 86.2 H (45-73) % Lymph % (Auto) 4.9 L (20-40) % [place] % (Auto) 6.1 (2-11) % Eos % (Auto) 0.1 (0-4) % Baso % (Auto) 0.9 (0-2) % Lymph # (Auto) 1.1 L (1.2-4.9) X10*3/uL [place] # (Auto) 1.3 H (0.1-1.2) X10*3/uL Eos # (Auto) 0.0 (0.0-0.4) X10*3/uL Baso # (Auto) 0.2 (0.0-0.2) X10*3/uL Abs Immat Gran (auto) 0.38 H (0.00-0.03) X10*3/uL Absolute Neuts (auto) 18.5 H (2.0-8.3) x10*3/uL Absolute Nucleated RBC 0.000 (0.0-0.012) X10*3/uL Nucleated RBC % (auto) 0.0 (0.0-0.2) /100WBC Sodium 138 (135-145) mmol/L Potassium 3.9 D (3.3-5.1) mmol/L Chloride 91 L (96-108) mmol/L Carbon Dioxide 31 H (22-29) mmol/L Anion Gap 20 (12-20) BUN 42 H D (9-16) mg/dL Creatinine 1.38 (0.5-1.4) mg/dL Estim Creat Clear Calc 29.2 Estimated GFR 37 Random Glucose 106 (60-115) mg/dL Calcium 9.8 D (8.4-10.2) mg/dL Total Bilirubin 0.2 (0.0-1.0) mg/dL AST 25 D (5-31) U/L ALT 17 (0-31) U/L Alkaline Phosphatase 71 D (39-117) U/L B-Natriuretic Peptide 83 (<100) pg/mL Total Protein 6.7 (6.5-8.0) g/dL Albumin 3.9 (3.5-5.0) g/dL Lipase 91 H (8-78) U/L Discharge Plan Discharge Clinical Impression: Abdominal pain, Vomiting, Acute urinary retention Patient Disposition: Still a Patient Prescriptions: No Action tizanidine 4 mg tablet 4 mg PO BEDTIME PRN (Reason: Muscle Pain) ferrous sulfate 325 mg (65 mg iron) Tablet 325 mg PO DAILY [id number] Tablet 1 tab PO DAILY cholecalciferol (vitamin D3) 25 mcg (1,000 unit) Tablet 25 mcg PO DAILY B-12 Compliance 1,000 mcg/mL Kit 1,000 mcg IM QMONTH omeprazole 20 mg capsule,delayed release(DR/EC) 1 cap PO DAILY calcium carbonate 500 mg calcium (1,250 mg) Tablet 500 mg PO BID metronidazole 500 mg tablet 500 mg PO TID Qty: 15 0RF furosemide 40 mg Tablet 40 mg PO DAILY Qty: 30 0RF Protocol: Hold for SBP< HOLD for SBP < : 90 oxycodone-acetaminophen [Percocet] 5-325 mg tablet 1 tab PO Q4-6H PRN (Reason: pain) Qty: 20 0RF Rx Instructions: Partial Fill upon patient request.
[2022-03-19 14:24] VITALS: BP 140/80; BP 151/82; PULSE 105; PULSE 110; RESP 18; TEMP 37.7; O2SAT 97; O2SAT 98; BMI 22.6
[2022-03-19 14:46] LABS: MANUAL DIFF FLAG NO
[2022-03-19] MEDS: ondansetron HCL 4 MG/2 ML VIAL IVPUSH (14:53)
[2022-03-19] MEDS: 0.9 % Sodium Chloride 1,000 ML 999 ML IVCONT (14:53)
[2022-03-19 14:55] LABS: Basophils Absolute Auto 0.2 X10*3/uL (0.0-0.2); Basophils Percent Auto 0.9 % (0-2); Eosinophils Percent Auto 0.1 % (0-4); Hematocrit 33.4 % (37.0-47.0); Hemoglobin 10.1 g/dl (12.0-16.0); Imm Gran Abs Auto 0.38 X10*3/uL (0.00-0.03); Imm Gran Pct Auto 1.8 % (0.0-0.4); Lymphocytes Absolute Auto 1.1 X10*3/uL (1.2-4.9); Lymphocytes Percent Auto 4.9 % (20-40); Mean Corpuscular HGB Conc 30.2 g/dl (31.0-35.0); Mean Corpuscular Hemoglobin 24.3 pg (27.0-33.0); Mean Corpuscular Volume 80.3 fL (80.0-98.0); Mean Platelet Volume 10.8 fL (9.4-12.3); Monocytes Absolute Auto 1.3 X10*3/uL (0.1-1.2); Monocytes Percent Auto 6.1 % (2-11); Neutrophils Absolute Auto 18.5 x10*3/uL (2.0-8.3); Neutrophils Percent Auto 86.2 % (45-73); Platelet Count 688 X10*3/uL (160-400); Red Blood Count 4.16 X10*6/uL (4.20-5.50); Red Cell Distribution Width 17.1 % (11.0-16.0); White Blood Count 21.5 X10*3/uL (4.8-10.8)
[2022-03-19 15:03] LABS: Alanine Aminotransferase 17 U/L (0-31); Albumin Level 3.9 g/dL (3.5-5.0); Alkaline Phosphatase 71 U/L (39-117); Anion Gap 20 (12-20); Aspartate Amino Transferase 25 U/L (5-31); Bilirubin Total 0.2 mg/dL (0.0-1.0); Blood Urea Nitrogen 42 mg/dL (9-16); Calcium 9.8 mg/dL (8.4-10.2); Carbon Dioxide 31 mmol/L (22-29); Chloride 91 mmol/L (96-108); Creatinine Clr Calc Pharmacy 29.2; Estimated Glomerular Filt Rate 37; Glucose Random 106 mg/dL (60-115); Lipase 91 U/L (8-78); Potassium 3.9 mmol/L (3.3-5.1); Sodium 138 mmol/L (135-145); Total Protein 6.7 g/dL (6.5-8.0)
[2022-03-19 15:09] LABS: B Type Natriuretic Peptide 83 pg/mL (<100)
[2022-03-19] MEDS: iohexoL 350 MG/ML 100 ML INFUS..BTL IV (15:38)
[2022-03-19] MEDS: Morphine Sulfate 4 MG/ML CARTRIDGE IVPUSH (15:52)
--- NOTE | 2022-03-19 17:12 | PHA.MEDREC ---
Pharmacy Consult ? Medication Reconciliation Pharmacy has completed the medication reconciliation. Patient came from [facility] with medication list. Ashley Loco, CarltonD
[2022-03-19 17:16] LABS: Appearance Urine CLEAR; Color Urine YELLOW; Glucose Urine UA NEG (NEG); Leukocyte Esterase Urine NEG (NEG); Nitrite Urine NEG (NEG); PH 5.5 (5.0-8.0); Urine Blood NEG (NEG); Urine Ketones NEG (NEG); Urine Protein NEG (NEG-TRACE)
[2022-03-19 17:29] VITALS: PULSE 100; RESP 20; TEMP 37.5; O2SAT 100
[2022-03-19] MEDS: 0.9 % Sodium Chloride 1,000 ML 150 ML IVCONT (17:30)
[2022-03-19 17:36] LABS: Amorphous Sediment Urine TRACE /LPF; RBC Urine 0-2 /HPF (0); WBC Urine 0-2 /HPF (0-4)
[2022-03-19 17:37] LABS: Lactic Acid 0.9 mmol/L (0.5-2.0)
[2022-03-19] MEDS: Piperacillin Sodium/Tazobactam 3.375 GM in 0.9 % Sodium Chloride 50 ML IV (17:39)
--- NOTE | 2022-03-19 17:56 | PM.HPGS ---
History of Present Illness History of Present Illness Date of Service: 03/20/22 Chief complaint: SBO Narrative: Nereida Rowell is a 81 year old female w/ COPD, CHF, new dx of colon ca discharged recently after right hemicolectomy with ileostomy & mucous fistula who presented with abd bloating, 2.2 liters of urine & SBO vs ileus. I was asked to admit her to facilitate her care. [facility] Past Medical History Medical History (Updated 03/20/22 @ 08:10 by Marty Cortez MD) Anemia B12 deficiency Bacteremia due to Gram-negative bacteria Breast cancer Chronic restrictive lung disease COPD (chronic obstructive pulmonary disease) Dyspnea Emphysema lung GERD (gastroesophageal reflux disease) Hypertension Osteoporosis Postoperative ileus Pulmonary nodule Sepsis Tachycardia Wrist fracture, bilateral Family History Family History Other Vaginal cancer Surgical History Surgical History H/O colectomy H/O hysterectomy with oophorectomy History of appendectomy History of cataract surgery History of lumpectomy of right breast Hx of colonoscopy Hx of esophagogastroduodenoscopy Hx of lumpectomy S/P excision of lipoma Social History Social History Household Members: None Housing: Assisted Living Facility Are you a primary hospice care transitions coordinator to a significant other at home: No Do you presently have visiting nurse or other home services: No Alcohol intake: never Patient Tobacco Use Status: Former Tobacco user Tobacco use type: Cigarette Years Smoked: 25 years Second Hand Smoke Exposure: No Use of substances other than those prescribed or required for medical reasons: No Have you been hit, kicked, punched, or otherwise hurt by someone within the past year? If so, by whom?: No Do you feel safe in your current relationship?: No Current Relationship Is there a partner from a previous relationship who is making you feel unsafe now?: No Are you made to feel afraid or neglected: No Advance Directives: Yes Advance Directives on File: Yes Advance Directives Date on File: 03/19/22 Do you have thoughts of harming others: None Do you have a plan to hurt others: No Plan Recently lost weight without trying: No Nutrition Risks: Poor intake 0-25% >4 days Patient : No : No service: No Current occupational status: disabled Current occupation: rt handed Meds Allergies Allergy/AdvReac Type Severity Reaction Status Date / Time meperidine [From Demerol] Allergy Mild VOMITING Verified 03/19/22 14:24 Active Medications: Current Medications Sodium Chloride (Ns) 1,000 mls @ 150 mls/hr IVCONT .[id number] DEVORAH Last Admin: 03/19/22 17:30 Dose: 150 mls/hr Home Medications Medication Instructions Recorded Confirmed Last Taken Type cholecalciferol (vitamin D3) 25 25 mcg PO DAILY 06/03/20 03/19/22 Unknown History mcg (1,000 unit) tablet ferrous sulfate 325 mg (65 mg 325 mg PO DAILY 06/03/20 03/19/22 Unknown History iron) tablet mfjhbppwfmgf-kuweqltf-bkdqhs tablet 1 tab PO DAILY 06/03/20 03/19/22 Unknown History tizanidine 4 mg tablet 4 mg PO BEDTIME PRN Muscle Pain 06/03/20 03/19/22 Unknown History omeprazole 20 mg capsule,delayed 1 cap PO DAILY@0630 12/03/20 03/19/22 Unknown History release calcium carbonate 500 mg calcium 500 mg PO DAILY 03/07/22 03/19/22 Unknown History (1,250 mg) tablet cyanocobalamin (vitamin B-12) 1,000 mcg IM QMONTH 03/19/22 03/19/22 02/24/22 History 1,000 mcg/mL injection solution enoxaparin 30 mg/0.3 mL 30 mg subcut Q24H 03/19/22 03/19/22 Unknown History subcutaneous syringe (Lovenox) metronidazole 500 mg tablet 500 mg PO TID UTI 03/19/22 03/19/22 Unknown History oxycodone-acetaminophen 5 mg-325 2 tab PO Q4H PRN Severe Pain 03/19/22 03/19/22 Unknown History mg tablet (Percocet) (Scale Score 7-10) Physical Exam Vital Signs: Vital Signs: Last Vital Signs Temp 99.5 F 03/19/22 17:29 Pulse 100 03/19/22 17:29 Resp 20 03/19/22 17:29 BP 151/82 H 03/19/22 14:24 Pulse Ox 100 03/19/22 17:29 O2 Del Method 03/19/22 17:29 Oxygen Flow Rate 3 03/19/22 14:24 BMI result Body Mass Index 22.6 Results Results Labs: Short CBC 03/19/22 Range/Units 14:42 WBC 21.5 H (4.8-10.8) X10*3/uL Hgb 10.1 L (12.0-16.0) g/dl Hct 33.4 L (37.0-47.0) % Plt Count 688 H D (160-400) X10*3/uL BMP 03/19/22 14:42 Sodium 138 Potassium 3.9 D Chloride 91 L Carbon Dioxide 31 H BUN 42 H D Creatinine 1.38 Calcium 9.8 D Liver Function 03/19/22 Range/Units 14:42 Total Bilirubin 0.2 (0.0-1.0) mg/dL AST 25 D (5-31) U/L ALT 17 (0-31) U/L Alkaline Phosphatase 71 D (39-117) U/L Albumin 3.9 (3.5-5.0) g/dL Urine 03/19/22 Range/Units 17:06 Urine Color YELLOW Urine Appearance CLEAR Urine pH 5.5 (5.0-8.0) Ur Specific [place] 1.020 (1.005-1.025) Urine Protein NEG (NEG-TRACE) MG/DL Urine Glucose (UA) NEG (NEG) MG/DL Abdomen CT scan report/results: report reviewed and image reviewed CT scan - pelvis: report reviewed and image reviewed Assessment and Plan (1) Acute urinary retention: Status: Acute (2) Vomiting: Status: Acute (3) Abdominal pain: Status: Acute (4) Colon carcinoma: Status: Acute (5) Emphysema lung: Status: Acute Plan admit for bowel rest, IVF & Abx hospitalist consulted re: COPD & CHF monitor ileostomy output resume PPI; SQ hep, SCDs Quality Stroke Does the patient have a stroke diagnosis?: No VTE Prior VTE?: No VTE Risk Level:: Medical - moderate - high VTE Device Contraindication: N/A - Device Ordered VTE Drug Contraindication: N/A - Med Ordered Procedures Date of Service Date of Service: 03/20/22
[2022-03-19 19:01] LABS: COVID-19 Test Negative (Negative); IDNOW Serial# 16C4AD1C
[2022-03-19 20:27] VITALS: BP 128/68; PULSE 95; RESP 20; TEMP 36.7; O2SAT 98
[2022-03-19 20:52] VITALS: BP 140/66; PULSE 102; RESP 20; TEMP 36.1; O2SAT 97
[2022-03-19 23:33] VITALS: BP 130/70; PULSE 98; RESP 16; TEMP 36.3; O2SAT 98
[2022-03-19] MEDS: Piperacillin Sodium/Tazobactam 2.25 GM in 0.9 % Sodium Chloride 50 ML IV (23:33)
[2022-03-20] MEDS: HYDROmorphone HCl 0.5 MG/0.5 ML SYRINGE 0.25 MG IVPUSH ×2 (00:19→09:35)
[2022-03-20 03:31] VITALS: BP 128/66; PULSE 93; RESP 16; TEMP 36; O2SAT 97
[2022-03-20] MEDS: Piperacillin Sodium/Tazobactam 2.25 GM in 0.9 % Sodium Chloride 50 ML IV ×4 (05:30→22:02)
[2022-03-20 06:29] LABS: Anion Gap 22 (12-20); Blood Urea Nitrogen 34 mg/dL (9-16); Calcium 9.2 mg/dL (8.4-10.2); Carbon Dioxide 25 mmol/L (22-29); Chloride 99 mmol/L (96-108); Creatinine Clr Calc Pharmacy 34.8; Estimated Glomerular Filt Rate 45; Glucose Random 105 mg/dL (60-115); Potassium 4.1 mmol/L (3.3-5.1); Sodium 142 mmol/L (135-145)
[2022-03-20 07:57] VITALS: BP 129/64; PULSE 100; RESP 16; TEMP 36.9; O2SAT 96
--- NOTE | 2022-03-20 08:09 | P.PNGS_ITS ---
Subjective Subjective Date of Service: 03/20/22 Interval history: events prior to admission reviewed pt still with nausea and vomitting stoma with minimal stool Physical Exam Vital Signs: Vital Signs: Last Vital Signs Temp 98.5 F 03/20/22 07:57 Pulse 100 03/20/22 07:57 Resp 16 03/20/22 07:57 BP 129/64 03/20/22 07:57 Pulse Ox 96 03/20/22 07:57 O2 Del Method 03/20/22 07:57 O2 Flow Rate 1 03/19/22 23:33 Oxygen Flow Rate 3 03/19/22 14:24 BMI result Body Mass Index 22.6 Const: General: no acute distress Resp: Effort & Inspection: normal respiratory effort Cardio: Rate: regular rate GI: Other: soft, stoma viable, minimal output, incision clean Objective Data Active Medications Hydromorphone HCl (Hydromorphone Hcl 0.5 Mg/0.5 Ml Syringe) 0.25 mg IVPUSH Q3H PRN; Protocol PRN Reason: Pain, Severe (Pain Scale 7-10) Last Admin: 03/20/22 00:19 Dose: 0.25 mg Documented By: GAIL Sodium Chloride (Ns) 1,000 mls @ 150 mls/hr IVCONT .[id number] [facility] Last Admin: 03/20/22 06:39 Dose: Not Given Documented By: GAIL Non-Admin Reason: IV Running Potassium Chloride/Sodium Chloride () 20 meq in 1,000 mls @ 80 mls/hr IVCONT .[id number] [facility] Last Admin: 03/19/22 19:36 Dose: 80 mls/hr Documented By: CATIE Piperacillin Sod/Tazobactam (Sod 2.25 gm/ Sodium Chloride) 50 mls @ 100 mls/hr IV Q6H [facility] Last Infusion: 03/20/22 06:06 Dose: 0 mls/hr Documented By: GAIL Pharmacy Consult (Consult Rx Perform Med Rec) 1 each MISCELLANE ONCE PRN PRN Reason: Consult order Labs CBC & Chem 7: 03/19/22 14:42 03/20/22 05:37 Labs: Laboratory Results - last 24 hr 03/19/22 03/19/22 03/19/22 14:42 14:42 14:42 MCV 80.3 MCH 24.3 L MCHC 30.2 L RDW 17.1 H Plt Count 688 H D MPV 10.8 Immature Gran % (Auto) 1.8 H Neut % (Auto) 86.2 H Lymph % (Auto) 4.9 L [place] % (Auto) 6.1 Eos % (Auto) 0.1 Baso % (Auto) 0.9 Lymph # (Auto) 1.1 L [place] # (Auto) 1.3 H Eos # (Auto) 0.0 Baso # (Auto) 0.2 Abs Immat Gran (auto) 0.38 H Absolute Neuts (auto) 18.5 H Absolute Nucleated RBC 0.000 Nucleated RBC % (auto) 0.0 Anion Gap 20 Estim Creat Clear Calc 29.2 Estimated GFR 37 Random Glucose 106 Lactic Acid Calcium 9.8 D Total Bilirubin 0.2 AST 25 D ALT 17 Alkaline Phosphatase 71 D B-Natriuretic Peptide 83 Total Protein 6.7 Albumin 3.9 Lipase 91 H Urine Color Urine Appearance Urine pH Ur Specific [place] Urine Protein Urine Glucose (UA) Urine Ketones Urine Blood Urine Nitrite Ur Leukocyte Esterase Urine RBC Urine WBC Ur Squamous Epith Cells Amorphous Sediment Urine Bacteria COVID-19 ([facility]) COVID-19 Clin Com 03/19/22 03/19/22 03/19/22 17:06 17:06 18:34 MCV MCH MCHC RDW Plt Count MPV Immature Gran % (Auto) Neut % (Auto) Lymph % (Auto) [place] % (Auto) Eos % (Auto) Baso % (Auto) Lymph # (Auto) [place] # (Auto) Eos # (Auto) Baso # (Auto) Abs Immat Gran (auto) Absolute Neuts (auto) Absolute Nucleated RBC Nucleated RBC % (auto) Anion Gap Estim Creat Clear Calc Estimated GFR Random Glucose Lactic Acid 0.9 Calcium Total Bilirubin AST ALT Alkaline Phosphatase B-Natriuretic Peptide Total Protein Albumin Lipase Urine Color YELLOW Urine Appearance CLEAR Urine pH 5.5 Ur Specific [place] 1.020 Urine Protein NEG Urine Glucose (UA) NEG Urine Ketones NEG Urine Blood NEG Urine Nitrite NEG Ur Leukocyte Esterase NEG Urine RBC 0-2 Urine WBC 0-2 Ur Squamous Epith Cells NONE Amorphous Sediment TRACE Urine Bacteria NONE COVID-19 ([facility]) Negative COVID-19 Clin Com See Note 03/20/22 05:37 MCV MCH MCHC RDW Plt Count MPV Immature Gran % (Auto) Neut % (Auto) Lymph % (Auto) [place] % (Auto) Eos % (Auto) Baso % (Auto) Lymph # (Auto) [place] # (Auto) Eos # (Auto) Baso # (Auto) Abs Immat Gran (auto) Absolute Neuts (auto) Absolute Nucleated RBC Nucleated RBC % (auto) Anion Gap 22 H Estim Creat Clear Calc 34.8 Estimated GFR 45 Random Glucose 105 Lactic Acid Calcium 9.2 D Total Bilirubin AST ALT Alkaline Phosphatase B-Natriuretic Peptide Total Protein Albumin Lipase Urine Color Urine Appearance Urine pH Ur Specific [place] Urine Protein Urine Glucose (UA) Urine Ketones Urine Blood Urine Nitrite Ur Leukocyte Esterase Urine RBC Urine WBC Ur Squamous Epith Cells Amorphous Sediment Urine Bacteria COVID-19 ([facility]) COVID-19 Clin Com Procedures Date of Service Date of Service: 03/20/22 Progress Note: A&P Assessment and plan (1) Postoperative ileus: Status: Acute Assessment and Plan: insert NGT IV abx for ?small abscess/fluid collection good UO - [place] in place bowel rest follow labs OOB to chair exam otherwise benign Hospitalist also following Time Spent With Patient Time: Total time spent is greater than 50% in coordination of care (as documented) at patient's floor/unit and/or counseling patient: Quality Stroke Does the patient have a stroke diagnosis?: No VTE Prior VTE?: No VTE Risk Level:: Medical - moderate - high VTE Device Contraindication: N/A - Device Ordered VTE Drug Contraindication: N/A - Med Ordered
--- NOTE | 2022-03-20 10:20 | HO.PM.IMCN ---
History of Present Illness Data of Consult Service Date: 03/20/22 Primary Care Provider: Kriss De Leon NP HPI Reason for consult: Medical mgmt This is an 81 year old who was admitted to [facility] from 03/07-03/16 where she was treated and diagnosed with colon cancer. Her hospital course was complicated by bacteremia and congestive heart failure exacerbation. He was discharged on 03/16/2022 and now returns on 03/19 with abdominal symptoms. Her CT imaging reveals a small bowel obstruction versus ileus with possible abscess. She is admitted under the General Surgical Services. Medical consult requested for comanagement. Patient is seen and examined in her room. Her is bedside. She denies any chest pain or shortness of breath. Denies any cough. Reports some abdominal pain and nausea which have improved with medications. Review of Systems Review of Systems: negative except HPI PMFSH Medical History Anemia B12 deficiency Bacteremia due to Gram-negative bacteria Breast cancer Chronic restrictive lung disease COPD (chronic obstructive pulmonary disease) Dyspnea Emphysema lung GERD (gastroesophageal reflux disease) Hypertension Osteoporosis Postoperative ileus Pulmonary nodule Sepsis Tachycardia Wrist fracture, bilateral Family History Other Vaginal cancer Surgical History H/O colectomy H/O hysterectomy with oophorectomy History of appendectomy History of cataract surgery History of lumpectomy of right breast Hx of colonoscopy Hx of esophagogastroduodenoscopy Hx of lumpectomy S/P excision of lipoma Social History Household Members: None Housing: Assisted Living Facility Are you a primary care companion to a significant other at home: No Do you presently have visiting nurse or other home services: No Alcohol intake: never Patient Tobacco Use Status: Former Tobacco user Tobacco use type: Cigarette Years Smoked: 25 years Second Hand Smoke Exposure: No Use of substances other than those prescribed or required for medical reasons: No Have you been hit, kicked, punched, or otherwise hurt by someone within the past year? If so, by whom?: No Do you feel safe in your current relationship?: No Current Relationship Is there a partner from a previous relationship who is making you feel unsafe now?: No Are you made to feel afraid or neglected: No Advance Directives: Yes Advance Directives on File: Yes Advance Directives Date on File: 03/19/22 Do you have thoughts of harming others: None Do you have a plan to hurt others: No Plan Recently lost weight without trying: No Nutrition Risks: Poor intake 0-25% >4 days Patient : No : No service: No Current occupational status: disabled Current occupation: rt handed Meds Allergies Allergy/AdvReac Type Severity Reaction Status Date / Time meperidine [From Demerol] Allergy Mild VOMITING Verified 03/19/22 14:24 Active Medications: Current Medications Hydromorphone HCl (Hydromorphone Hcl 0.5 Mg/0.5 Ml Syringe) 0.25 mg IVPUSH Q3H PRN; Protocol PRN Reason: Pain, Severe (Pain Scale 7-10) Last Admin: 03/20/22 09:35 Dose: 0.25 mg Potassium Chloride/Sodium Chloride () 20 meq in 1,000 mls @ 80 mls/hr IVCONT .[id number] [facility] Last Admin: 03/20/22 09:36 Dose: 80 mls/hr Piperacillin Sod/Tazobactam (Sod 2.25 gm/ Sodium Chloride) 50 mls @ 100 mls/hr IV Q6H [facility] Last Infusion: 03/20/22 06:06 Dose: Infused Pharmacy Consult (Consult Rx Perform Med Rec) 1 each MISCELLANE ONCE PRN PRN Reason: Consult order Home Medications Medication Instructions Recorded Confirmed Last Taken Type cholecalciferol (vitamin D3) 25 25 mcg PO DAILY 06/03/20 03/19/22 Unknown History mcg (1,000 unit) tablet ferrous sulfate 325 mg (65 mg 325 mg PO DAILY 06/03/20 03/19/22 Unknown History iron) tablet [id number]-[id number] tablet 1 tab PO DAILY 06/03/20 03/19/22 Unknown History tizanidine 4 mg tablet 4 mg PO BEDTIME PRN Muscle Pain 06/03/20 03/19/22 Unknown History omeprazole 20 mg capsule,delayed 1 cap PO DAILY@0630 12/03/20 03/19/22 Unknown History release calcium carbonate 500 mg calcium 500 mg PO DAILY 03/07/22 03/19/22 Unknown History (1,250 mg) tablet cyanocobalamin (vitamin B-12) 1,000 mcg IM QMONTH 03/19/22 03/19/22 02/24/22 History 1,000 mcg/mL injection solution enoxaparin 30 mg/0.3 mL 30 mg subcut Q24H 03/19/22 03/19/22 Unknown History subcutaneous syringe (Lovenox) metronidazole 500 mg tablet 500 mg PO TID UTI 03/19/22 03/19/22 Unknown History oxycodone-acetaminophen 5 mg-325 2 tab PO Q4H PRN Severe Pain 03/19/22 03/19/22 Unknown History mg tablet (Percocet) (Scale Score 7-10) Physical Exam Vital Signs and Narrative: Vital Signs: Last Vital Signs Temp 98.5 F 03/20/22 07:57 Pulse 100 03/20/22 07:57 Resp 16 03/20/22 07:57 BP 129/64 03/20/22 07:57 Pulse Ox 96 03/20/22 07:57 O2 Del Method 03/20/22 07:57 O2 Flow Rate 1 03/19/22 23:33 Oxygen Flow Rate 3 03/19/22 14:24 BMI result Body Mass Index 22.6 Const: Other: General - no acute distress, appears comfortable Cardiovascular - regular rate and rhythm, S1-S2 Lungs - normal respiratory effort, clear to auscultation bilaterally, no wheezing Abdomen - soft, nontender, no rebound or guarding Extremities - no edema bilaterally Neuro - awake and alert, no focal deficits Results Labs CBC and Chem 7: 03/19/22 14:42 03/20/22 05:37 Labs: Laboratory Results - last 24 hr 03/19/22 03/19/22 03/19/22 14:42 14:42 14:42 MCV 80.3 MCH 24.3 L MCHC 30.2 L RDW 17.1 H Plt Count 688 H D MPV 10.8 Immature Gran % (Auto) 1.8 H Neut % (Auto) 86.2 H Lymph % (Auto) 4.9 L [place] % (Auto) 6.1 Eos % (Auto) 0.1 Baso % (Auto) 0.9 Lymph # (Auto) 1.1 L [place] # (Auto) 1.3 H Eos # (Auto) 0.0 Baso # (Auto) 0.2 Abs Immat Gran (auto) 0.38 H Absolute Neuts (auto) 18.5 H Absolute Nucleated RBC 0.000 Nucleated RBC % (auto) 0.0 Anion Gap 20 Estim Creat Clear Calc 29.2 Estimated GFR 37 Random Glucose 106 Lactic Acid Calcium 9.8 D Total Bilirubin 0.2 AST 25 D ALT 17 Alkaline Phosphatase 71 D B-Natriuretic Peptide 83 Total Protein 6.7 Albumin 3.9 Lipase 91 H Urine Color Urine Appearance Urine pH Ur Specific [place] Urine Protein Urine Glucose (UA) Urine Ketones Urine Blood Urine Nitrite Ur Leukocyte Esterase Urine RBC Urine WBC Ur Squamous Epith Cells Amorphous Sediment Urine Bacteria COVID-19 ([facility]) COVID-19 Clin Com 03/19/22 03/19/22 03/19/22 17:06 17:06 18:34 MCV MCH MCHC RDW Plt Count MPV Immature Gran % (Auto) Neut % (Auto) Lymph % (Auto) [place] % (Auto) Eos % (Auto) Baso % (Auto) Lymph # (Auto) [place] # (Auto) Eos # (Auto) Baso # (Auto) Abs Immat Gran (auto) Absolute Neuts (auto) Absolute Nucleated RBC Nucleated RBC % (auto) Anion Gap Estim Creat Clear Calc Estimated GFR Random Glucose Lactic Acid 0.9 Calcium Total Bilirubin AST ALT Alkaline Phosphatase B-Natriuretic Peptide Total Protein Albumin Lipase Urine Color YELLOW Urine Appearance CLEAR Urine pH 5.5 Ur Specific [place] 1.020 Urine Protein NEG Urine Glucose (UA) NEG Urine Ketones NEG Urine Blood NEG Urine Nitrite NEG Ur Leukocyte Esterase NEG Urine RBC 0-2 Urine WBC 0-2 Ur Squamous Epith Cells NONE Amorphous Sediment TRACE Urine Bacteria NONE COVID-19 ([facility]) Negative COVID-19 Clin Com See Note 03/20/22 05:37 MCV MCH MCHC RDW Plt Count MPV Immature Gran % (Auto) Neut % (Auto) Lymph % (Auto) [place] % (Auto) Eos % (Auto) Baso % (Auto) Lymph # (Auto) [place] # (Auto) Eos # (Auto) Baso # (Auto) Abs Immat Gran (auto) Absolute Neuts (auto) Absolute Nucleated RBC Nucleated RBC % (auto) Anion Gap 22 H Estim Creat Clear Calc 34.8 Estimated GFR 45 Random Glucose 105 Lactic Acid Calcium 9.2 D Total Bilirubin AST ALT Alkaline Phosphatase B-Natriuretic Peptide Total Protein Albumin Lipase Urine Color Urine Appearance Urine pH Ur Specific [place] Urine Protein Urine Glucose (UA) Urine Ketones Urine Blood Urine Nitrite Ur Leukocyte Esterase Urine RBC Urine WBC Ur Squamous Epith Cells Amorphous Sediment Urine Bacteria COVID-19 ([facility]) COVID-19 Clin Com Imaging Radiologist's Impressions: Impressions Chest X-Ray 03/19/22 14:15 IMPRESSION: Mild CHF. Large hiatal hernia. Abdomen/Pelvis CT 03/19/22 15:40 IMPRESSION: 1. Marked gaseous distention with scattered air-fluid levels of the stomach and proximal and mid small bowel loops is seen with decompression of the distal small bowel loops leading to the ileostomy. Findings are suspicious for a distal small bowel obstruction, perhaps related to a stricture or less likely adhesion in this early postoperative phase. There is also a complex peripherally rim-enhancing fluid collection is seen posterior to the bladder adjacent to the rectosigmoid colon, raising the suspicion of an abscess versus other complex fluid collection. Close clinical correlation and surgical consult is recommended. 3. Bilateral moderate to severe hydroureteronephrosis is seen, presumably related to bilateral vesicoureteral reflux given the marked urinary bladder distention. Consider straight catheter decompression of the urinary bladder 4. Incompletely characterized exophytic lower pole right renal cystic mass with punctate calcifications and question punctate internal enhancement is seen, unchanged from recent exam. Further evaluation with dedicated MRI scan of the kidneys with and without contrast is recommended to exclude an enhancing component 5. Moderate emphysema with bibasilar volume loss and consolidation. Associated small bilateral pleural effusions are seen 6. Large retrocardiac hiatal hernia. This critical result was discussed with Dr. Poole 03/19/2022, 5:16 PM and it was ascertained that the content and urgency of this report was understood at the time of direct communication. Assessment and Plan (1) Postoperative ileus: Status: Acute Plan This is an 81 year old who was admitted to [facility] from 03/07-03/16 where she was treated and diagnosed with colon cancer. Her hospital course was complicated by bacteremia and congestive heart failure exacerbation. He was discharged on 03/16/2022 and now returns on 03/19 with abdominal symptoms. Her CT imaging reveals a small bowel obstruction versus ileus with possible abscess. She is admitted under the General Surgical Services. Medical consult requested for comanagement. 1. History of HFpEF not in exacerbation PO lasix on hold due to NPO status hold diuretics -- monitor fluid status closely 2. history of COPD no on any inhalers at baseline line ?? PRN albuterol if needed 3. Post op ileus / SBO 3a. Abscess / fluid collection mgmt per gen surg agree with iv zosyn Will follow along.
[2022-03-20 11:35] VITALS: BP 102/63; PULSE 99; RESP 17; TEMP 36.6; O2SAT 95
--- NOTE | 2022-03-20 12:06 | MHC.CM.PN ---
CM MET WITH PT AND FAMILY AT BEDSIDE AT BASELINE, PT LIVES ALONE AND IS INDEPENDENT WITH CARE SHE USES NO ASSISTIVE DEVICE AND HAS ONLY A STAIR LIFT FOR DME PT ALSO HAD NO HOME SERVICES PT DISCHARGED TO [facility] FOLLOWING HER 03/07/22 ADMISSION. THEY REPORT THIS WAS A POSITIVE EXPERIENCE HOWEVER THE LOCATION IS VERY INCONVENIENT FOR FAMILY THEY REQUEST A REFERRAL TO [facility] THEY ARE WILLING TO TAKE ELS IF [facility] DOES NOT OFFER PT IS VACCINATED WITH PFIZER X 2 AND HAS A HCP ON FILE IMM DELIVERED CURRENT DC PLAN IS LIKELY STR 1. [facility] 2. [facility] BLS TRANSPORT
[2022-03-20 13:10] VITALS: BMI 22.6
[2022-03-20 15:21] VITALS: BP 118/58; PULSE 94; RESP 16; TEMP 36.3; O2SAT 97
[2022-03-20 18:59] VITALS: BP 123/61; PULSE 99; RESP 18; TEMP 36.4; O2SAT 96
[2022-03-20 23:11] VITALS: BP 128/70; PULSE 96; RESP 18; TEMP 36.3; O2SAT 94
[2022-03-21] MEDS: ondansetron HCL 4 MG/2 ML VIAL IVPUSH ×2 (00:14→11:22)
[2022-03-21] MEDS: HYDROmorphone HCl 0.5 MG/0.5 ML SYRINGE 0.25 MG IVPUSH (01:56)
[2022-03-21 04:00] VITALS: BP 127/64; PULSE 93; RESP 18; TEMP 36; O2SAT 96
[2022-03-21] MEDS: Piperacillin Sodium/Tazobactam 2.25 GM in 0.9 % Sodium Chloride 50 ML IV ×3 (04:06→17:19)
[2022-03-21 07:45] VITALS: BP 129/62; PULSE 98; RESP 16; TEMP 36.4; O2SAT 94
--- NOTE | 2022-03-21 09:40 | PM.PNGS ---
Subjective Subjective Date of Service: 03/22/22 Interval history: denies abdominal pain says she had a little emesis this morning stoma with a little bit of output feels tired today Physical Exam Vital Signs: Vital Signs: Last Vital Signs Temp 97.5 F 03/21/22 07:45 Pulse 98 03/21/22 07:45 Resp 16 03/21/22 07:45 BP 129/62 03/21/22 07:45 Pulse Ox 94 03/21/22 07:45 O2 Del Method 03/21/22 07:45 O2 Flow Rate 3 03/21/22 07:45 Oxygen Flow Rate 3 03/19/22 14:24 BMI result Body Mass Index 22.6 Const: General: comfortable and no acute distress Resp: Effort & Inspection: normal respiratory effort Cardio: Rate: regular rate GI: Other: incision clean, stoma with small amount of stool Palpation (GI): Soft to palpation, not firm, nontender and no guarding Objective Data Active Medications Hydromorphone HCl (Hydromorphone Hcl 0.5 Mg/0.5 Ml Syringe) 0.25 mg IVPUSH Q3H PRN; Protocol PRN Reason: Pain, Severe (Pain Scale 7-10) Last Admin: 03/21/22 01:56 Dose: 0.25 mg Documented By: GAIL Potassium Chloride/Sodium Chloride () 20 meq in 1,000 mls @ 80 mls/hr IVCONT .[id number] [facility] Last Admin: 03/21/22 05:00 Dose: Not Given Documented By: GAIL Non-Admin Reason: IV Running Piperacillin Sod/Tazobactam (Sod 2.25 gm/ Sodium Chloride) 50 mls @ 100 mls/hr IV Q6H [facility] Last Infusion: 03/21/22 04:44 Dose: 0 mls/hr Documented By: GAIL Ondansetron HCl (Ondansetron Hcl 4 Mg/2 Ml Vial) 4 mg IVPUSH Q8H PRN PRN Reason: Nausea Last Admin: 03/21/22 00:14 Dose: 4 mg Documented By: GAIL Pharmacy Consult (Consult Rx Perform Med Rec) 1 each MISCELLANE ONCE PRN PRN Reason: Consult order Labs CBC & Chem 7: 03/22/22 08:44 03/22/22 08:44 Labs: Laboratory Results WBC 21.5 X10*3/uL (4.8-10.8) H 03/19/22 14:42 RBC 4.16 X10*6/uL (4.20-5.50) L 03/19/22 14:42 Hgb 10.1 g/dl (12.0-16.0) L 03/19/22 14:42 Hct 33.4 % (37.0-47.0) L 03/19/22 14:42 MCV 80.3 fL (80.0-98.0) 03/19/22 14:42 MCH 24.3 pg (27.0-33.0) L 03/19/22 14:42 MCHC 30.2 g/dl (31.0-35.0) L 03/19/22 14:42 RDW 17.1 % (11.0-16.0) H 03/19/22 14:42 Plt Count 688 X10*3/uL (160-400) H D 03/19/22 14:42 MPV 10.8 fL (9.4-12.3) 03/19/22 14:42 Immature Gran % (Auto) 1.8 % (0.0-0.4) H 03/19/22 14:42 Neut % (Auto) 86.2 % (45-73) H 03/19/22 14:42 Lymph % (Auto) 4.9 % (20-40) L 03/19/22 14:42 [place] % (Auto) 6.1 % (2-11) 03/19/22 14:42 Eos % (Auto) 0.1 % (0-4) 03/19/22 14:42 Baso % (Auto) 0.9 % (0-2) 03/19/22 14:42 Lymph # (Auto) 1.1 X10*3/uL (1.2-4.9) L 03/19/22 14:42 [place] # (Auto) 1.3 X10*3/uL (0.1-1.2) H 03/19/22 14:42 Eos # (Auto) 0.0 X10*3/uL (0.0-0.4) 03/19/22 14:42 Baso # (Auto) 0.2 X10*3/uL (0.0-0.2) 03/19/22 14:42 Abs Immat Gran (auto) 0.38 X10*3/uL (0.00-0.03) H 03/19/22 14:42 Absolute Neuts (auto) 18.5 x10*3/uL (2.0-8.3) H 03/19/22 14:42 Absolute Nucleated RBC 0.000 X10*3/uL (0.0-0.012) 03/19/22 14:42 Nucleated RBC % (auto) 0.0 /100WBC (0.0-0.2) 03/19/22 14:42 Sodium 142 mmol/L (135-145) 03/20/22 05:37 Potassium 4.1 mmol/L (3.3-5.1) 03/20/22 05:37 Chloride 99 mmol/L (96-108) 03/20/22 05:37 Carbon Dioxide 25 mmol/L (22-29) 03/20/22 05:37 Anion Gap 22 (12-20) H 03/20/22 05:37 BUN 34 mg/dL (9-16) H 03/20/22 05:37 Creatinine 1.16 mg/dL (0.5-1.4) 03/20/22 05:37 Estim Creat Clear Calc 34.8 03/20/22 05:37 Estimated GFR 45 03/20/22 05:37 Random Glucose 105 mg/dL (60-115) 03/20/22 05:37 Lactic Acid 0.9 mmol/L (0.5-2.0) 03/19/22 17:06 Calcium 9.2 mg/dL (8.4-10.2) D 03/20/22 05:37 Total Bilirubin 0.2 mg/dL (0.0-1.0) 03/19/22 14:42 AST 25 U/L (5-31) D 03/19/22 14:42 ALT 17 U/L (0-31) 03/19/22 14:42 Alkaline Phosphatase 71 U/L (39-117) D 03/19/22 14:42 B-Natriuretic Peptide 83 pg/mL (<100) 03/19/22 14:42 Total Protein 6.7 g/dL (6.5-8.0) 03/19/22 14:42 Albumin 3.9 g/dL (3.5-5.0) 03/19/22 14:42 Lipase 91 U/L (8-78) H 03/19/22 14:42 Urine Color YELLOW 03/19/22 17:06 Urine Appearance CLEAR 03/19/22 17:06 Urine pH 5.5 (5.0-8.0) 03/19/22 17:06 Ur Specific [place] 1.020 (1.005-1.025) 03/19/22 17:06 Urine Protein NEG MG/DL (NEG-TRACE) 03/19/22 17:06 Urine Glucose (UA) NEG MG/DL (NEG) 03/19/22 17:06 Urine Ketones NEG MG/DL (NEG) 03/19/22 17:06 Urine Blood NEG (NEG) 03/19/22 17:06 Urine Nitrite NEG (NEG) 03/19/22 17:06 Ur Leukocyte Esterase NEG (NEG) 03/19/22 17:06 Urine RBC 0-2 /HPF (0) 03/19/22 17:06 Urine WBC 0-2 /HPF (0-4) 03/19/22 17:06 Ur Squamous Epith Cells NONE /LPF 03/19/22 17:06 Amorphous Sediment TRACE /LPF 03/19/22 17:06 Urine Bacteria NONE /LPF 03/19/22 17:06 COVID-19 (SOFIYA) Negative (Negative) 03/19/22 18:34 COVID-19 Clin Com See Note 03/19/22 18:34 Impressions Abdomen/Pelvis CT 03/19/22 15:40 IMPRESSION: 1. Marked gaseous distention with scattered air-fluid levels of the stomach and proximal and mid small bowel loops is seen with decompression of the distal small bowel loops leading to the ileostomy. Findings are suspicious for a distal small bowel obstruction, perhaps related to a stricture or less likely adhesion in this early postoperative phase. There is also a complex peripherally rim-enhancing fluid collection is seen posterior to the bladder adjacent to the rectosigmoid colon, raising the suspicion of an abscess versus other complex fluid collection. Close clinical correlation and surgical consult is recommended. 3. Bilateral moderate to severe hydroureteronephrosis is seen, presumably related to bilateral vesicoureteral reflux given the marked urinary bladder distention. Consider straight catheter decompression of the urinary bladder 4. Incompletely characterized exophytic lower pole right renal cystic mass with punctate calcifications and question punctate internal enhancement is seen, unchanged from recent exam. Further evaluation with dedicated MRI scan of the kidneys with and without contrast is recommended to exclude an enhancing component 5. Moderate emphysema with bibasilar volume loss and consolidation. Associated small bilateral pleural effusions are seen 6. Large retrocardiac hiatal hernia. This critical result was discussed with Dr. Poole 03/19/2022, 5:16 PM and it was ascertained that the content and urgency of this report was understood at the time of direct communication. Chest X-Ray 03/20/22 11:59 IMPRESSION: The NG tube is in the stomach but the stomach is within the chest. Laboratory Results WBC 17.2 X10*3/uL (4.8-10.8) H 03/21/22 09:57 RBC 3.82 X10*6/uL (4.20-5.50) L 03/21/22 09:57 Hgb 9.5 g/dl (12.0-16.0) L 03/21/22 09:57 Hct 31.8 % (37.0-47.0) L 03/21/22 09:57 MCV 83.2 fL (80.0-98.0) 03/21/22 09:57 MCH 24.9 pg (27.0-33.0) L 03/21/22 09:57 MCHC 29.9 g/dl (31.0-35.0) L 03/21/22 09:57 RDW 18.1 % (11.0-16.0) H 03/21/22 09:57 Plt Count 768 X10*3/uL (160-400) H 03/21/22 09:57 MPV 10.4 fL (9.4-12.3) 03/21/22 09:57 Immature Gran % (Auto) 1.8 % (0.0-0.4) H 03/19/22 14:42 Neut % (Auto) 86.2 % (45-73) H 03/19/22 14:42 Lymph % (Auto) 4.9 % (20-40) L 03/19/22 14:42 [place] % (Auto) 6.1 % (2-11) 03/19/22 14:42 Eos % (Auto) 0.1 % (0-4) 03/19/22 14:42 Baso % (Auto) 0.9 % (0-2) 03/19/22 14:42 Lymph # (Auto) 1.1 X10*3/uL (1.2-4.9) L 03/19/22 14:42 [place] # (Auto) 1.3 X10*3/uL (0.1-1.2) H 03/19/22 14:42 Eos # (Auto) 0.0 X10*3/uL (0.0-0.4) 03/19/22 14:42 Baso # (Auto) 0.2 X10*3/uL (0.0-0.2) 03/19/22 14:42 Abs Immat Gran (auto) 0.38 X10*3/uL (0.00-0.03) H 03/19/22 14:42 Absolute Neuts (auto) 18.5 x10*3/uL (2.0-8.3) H 03/19/22 14:42 Absolute Nucleated RBC 0.000 X10*3/uL (0.0-0.012) 03/21/22 09:57 Nucleated RBC % (auto) 0.0 /100WBC (0.0-0.2) 03/21/22 09:57 Sodium 142 mmol/L (135-145) 03/20/22 05:37 Potassium 4.1 mmol/L (3.3-5.1) 03/20/22 05:37 Chloride 99 mmol/L (96-108) 03/20/22 05:37 Carbon Dioxide 25 mmol/L (22-29) 03/20/22 05:37 Anion Gap 22 (12-20) H 03/20/22 05:37 BUN 34 mg/dL (9-16) H 03/20/22 05:37 Creatinine 1.16 mg/dL (0.5-1.4) 03/20/22 05:37 Estim Creat Clear Calc 34.8 03/20/22 05:37 Estimated GFR 45 03/20/22 05:37 Random Glucose 105 mg/dL (60-115) 03/20/22 05:37 Lactic Acid 0.9 mmol/L (0.5-2.0) 03/19/22 17:06 Calcium 9.2 mg/dL (8.4-10.2) D 03/20/22 05:37 Total Bilirubin 0.2 mg/dL (0.0-1.0) 03/19/22 14:42 AST 25 U/L (5-31) D 03/19/22 14:42 ALT 17 U/L (0-31) 03/19/22 14:42 Alkaline Phosphatase 71 U/L (39-117) D 03/19/22 14:42 B-Natriuretic Peptide 83 pg/mL (<100) 03/19/22 14:42 Total Protein 6.7 g/dL (6.5-8.0) 03/19/22 14:42 Albumin 3.9 g/dL (3.5-5.0) 03/19/22 14:42 Lipase 91 U/L (8-78) H 03/19/22 14:42 Urine Color YELLOW 03/19/22 17:06 Urine Appearance CLEAR 03/19/22 17:06 Urine pH 5.5 (5.0-8.0) 03/19/22 17:06 Ur Specific [place] 1.020 (1.005-1.025) 03/19/22 17:06 Urine Protein NEG MG/DL (NEG-TRACE) 03/19/22 17:06 Urine Glucose (UA) NEG MG/DL (NEG) 03/19/22 17:06 Urine Ketones NEG MG/DL (NEG) 03/19/22 17:06 Urine Blood NEG (NEG) 03/19/22 17:06 Urine Nitrite NEG (NEG) 03/19/22 17:06 Ur Leukocyte Esterase NEG (NEG) 03/19/22 17:06 Urine RBC 0-2 /HPF (0) 03/19/22 17:06 Urine WBC 0-2 /HPF (0-4) 03/19/22 17:06 Ur Squamous Epith Cells NONE /LPF 03/19/22 17:06 Amorphous Sediment TRACE /LPF 03/19/22 17:06 Urine Bacteria NONE /LPF 03/19/22 17:06 COVID-19 (SOFIYA) Negative (Negative) 03/19/22 18:34 COVID-19 Clin Com See Note 03/19/22 18:34 Impressions Abdomen/Pelvis CT 03/19/22 15:40 IMPRESSION: 1. Marked gaseous distention with scattered air-fluid levels of the stomach and proximal and mid small bowel loops is seen with decompression of the distal small bowel loops leading to the ileostomy. Findings are suspicious for a distal small bowel obstruction, perhaps related to a stricture or less likely adhesion in this early postoperative phase. There is also a complex peripherally rim-enhancing fluid collection is seen posterior to the bladder adjacent to the rectosigmoid colon, raising the suspicion of an abscess versus other complex fluid collection. Close clinical correlation and surgical consult is recommended. 3. Bilateral moderate to severe hydroureteronephrosis is seen, presumably related to bilateral vesicoureteral reflux given the marked urinary bladder distention. Consider straight catheter decompression of the urinary bladder 4. Incompletely characterized exophytic lower pole right renal cystic mass with punctate calcifications and question punctate internal enhancement is seen, unchanged from recent exam. Further evaluation with dedicated MRI scan of the kidneys with and without contrast is recommended to exclude an enhancing component 5. Moderate emphysema with bibasilar volume loss and consolidation. Associated small bilateral pleural effusions are seen 6. Large retrocardiac hiatal hernia. This critical result was discussed with Dr. Poole 03/19/2022, 5:16 PM and it was ascertained that the content and urgency of this report was understood at the time of direct communication. Chest X-Ray 03/20/22 11:59 IMPRESSION: The NG tube is in the stomach but the stomach is within the chest. Microbiology Microbiology Results: Microbiology 03/19/22 17:24 Blood Culture - Preliminary Blood - Venous No growth after 24 hours. 03/19/22 17:06 Blood Culture - Preliminary Blood - Venous No growth after 24 hours. Procedures Date of Service Date of Service: 03/21/22 Progress Note: A&P Assessment and plan (1) Postoperative ileus: Status: Acute Assessment and Plan: keep NGT in WBC better abd soft and benign WBC coming down will review CT with radiologist re: small fluid collection KUB Time Spent With Patient Time: Total time spent is greater than 50% in coordination of care (as documented) at patient's floor/unit and/or counseling patient: Quality Stroke Does the patient have a stroke diagnosis?: No VTE Prior VTE?: No VTE Risk Level:: Medical - moderate - high VTE Device Contraindication: N/A - Device Ordered VTE Drug Contraindication: N/A - Med Ordered
[2022-03-21 10:05] LABS: Hematocrit 31.8 % (37.0-47.0); Hemoglobin 9.5 g/dl (12.0-16.0); Mean Corpuscular HGB Conc 29.9 g/dl (31.0-35.0); Mean Corpuscular Hemoglobin 24.9 pg (27.0-33.0); Mean Corpuscular Volume 83.2 fL (80.0-98.0); Mean Platelet Volume 10.4 fL (9.4-12.3); Platelet Count 768 X10*3/uL (160-400); Red Blood Count 3.82 X10*6/uL (4.20-5.50); Red Cell Distribution Width 18.1 % (11.0-16.0); White Blood Count 17.2 X10*3/uL (4.8-10.8)
[2022-03-21 11:52] VITALS: BP 128/66; PULSE 98; RESP 16; TEMP 37.3; O2SAT 95
[2022-03-21 15:30] VITALS: BP 121/59; PULSE 96; RESP 14; TEMP 36; O2SAT 90
--- NOTE | 2022-03-21 16:51 | PM.EVENT ---
Event Note Date of Service: 03/21/22 Event Note: seen on afternoon rounds NG tube apparently had not been working since last night was noted to have a leak now functioning - more enteric contents suction of she denies abdominal pain abdomen remained soft stoma with some output, not month IV fluids KUB shows persistent small bowel dilatation consider small-bowel series TPN? exam otherwise stable and benign
[2022-03-21 19:45] VITALS: BP 129/60; PULSE 91; RESP 16; TEMP 35.8; O2SAT 98
[2022-03-21 23:18] VITALS: BP 125/59; PULSE 92; RESP 16; TEMP 36.6; O2SAT 98
[2022-03-22] MEDS: Piperacillin Sodium/Tazobactam 2.25 GM in 0.9 % Sodium Chloride 50 ML IV ×5 (00:29→23:28)
[2022-03-22] MEDS: HYDROmorphone HCl 0.5 MG/0.5 ML SYRINGE 0.25 MG IVPUSH ×4 (00:35→18:18)
[2022-03-22 03:37] VITALS: BP 125/65; PULSE 92; RESP 16; TEMP 36; O2SAT 97
[2022-03-22 08:00] VITALS: BP 123/59; PULSE 88; RESP 16; TEMP 36.2; O2SAT 98
[2022-03-22 08:59] LABS: Hematocrit 31.2 % (37.0-47.0); Hemoglobin 9.2 g/dl (12.0-16.0); Mean Corpuscular HGB Conc 29.5 g/dl (31.0-35.0); Mean Corpuscular Hemoglobin 24.7 pg (27.0-33.0); Mean Corpuscular Volume 83.9 fL (80.0-98.0); Mean Platelet Volume 10.2 fL (9.4-12.3); Platelet Count 670 X10*3/uL (160-400); Red Blood Count 3.72 X10*6/uL (4.20-5.50); Red Cell Distribution Width 18.3 % (11.0-16.0); White Blood Count 13.2 X10*3/uL (4.8-10.8)
[2022-03-22 09:20] LABS: Anion Gap 17 (12-20); Blood Urea Nitrogen 24 mg/dL (9-16); Carbon Dioxide 28 mmol/L (22-29); Chloride 106 mmol/L (96-108); Estimated Glomerular Filt Rate > 60; Glucose Random 85 mg/dL (60-115); Potassium 4.3 mmol/L (3.3-5.1); Sodium 147 mmol/L (135-145)
--- NOTE | 2022-03-22 09:56 | P.PNGS_ITS ---
Subjective Subjective Date of Service: 03/22/22 Interval history: Describes some pain her back and and on her abdomen Stoma has been having good output Denies vomiting overnight Physical Exam Vital Signs: Vital Signs: Last Vital Signs Temp 97.1 F 03/22/22 08:00 Pulse 88 03/22/22 08:00 Resp 16 03/22/22 08:00 BP 123/59 L 03/22/22 08:00 Pulse Ox 98 03/22/22 08:00 O2 Del Method 03/22/22 08:00 O2 Flow Rate 3 03/22/22 08:00 Oxygen Flow Rate 3 03/19/22 14:24 BMI result Body Mass Index 22.6 Const: Other: Frail looking General: comfortable Resp: Effort & Inspection: normal respiratory effort Cardio: Rate: regular rate GI: Other: Soft, ileostomy with good output, incision clean Objective Data Active Medications Hydromorphone HCl (Hydromorphone Hcl 0.5 Mg/0.5 Ml Syringe) 0.25 mg IVPUSH Q3H PRN; Protocol PRN Reason: Pain, Severe (Pain Scale 7-10) Last Admin: 03/22/22 09:06 Dose: 0.25 mg Documented By: ADITYA Piperacillin Sod/Tazobactam (Sod 2.25 gm/ Sodium Chloride) 50 mls @ 100 mls/hr IV Q6H [facility] Last Infusion: 03/22/22 05:33 Dose: 100 mls/hr Documented By: CA Potassium Chloride/Sodium Chloride () 20 meq in 1,000 mls @ 80 mls/hr IVCONT .[id number] [facility] Last Admin: 03/22/22 09:08 Dose: 80 mls/hr Documented By: DAITYA Ondansetron HCl (Ondansetron Hcl 4 Mg/2 Ml Vial) 4 mg IVPUSH Q8H PRN PRN Reason: Nausea Last Admin: 03/21/22 11:22 Dose: 4 mg Documented By: ALISON Pharmacy Consult (Consult Rx Perform Med Rec) 1 each MISCELLANE ONCE PRN PRN Reason: Consult order Labs CBC & Chem 7: 03/22/22 08:44 03/22/22 08:44 Labs: Laboratory Results - last 24 hr 03/21/22 03/22/22 03/22/22 09:57 08:44 08:44 MCV 83.2 83.9 MCH 24.9 L 24.7 L MCHC 29.9 L 29.5 L RDW 18.1 H 18.3 H Plt Count 768 H 670 H MPV 10.4 10.2 Absolute Nucleated RBC 0.000 0.000 Nucleated RBC % (auto) 0.0 0.0 Anion Gap 17 Estim Creat Clear Calc 48.0 Estimated GFR > 60 Random Glucose 85 Calcium 9.0 Microbiology Microbiology Results: Microbiology 03/19/22 17:24 Blood Culture - Preliminary Blood - Venous No growth after 48 hours. 03/19/22 17:06 Blood Culture - Preliminary Blood - Venous No growth after 48 hours. Procedures Date of Service Date of Service: 03/22/22 Progress Note: A&P Assessment and plan (1) Postoperative ileus: Status: Acute Assessment and Plan: She now has good output from her ileostomy I have reviewed her CAT scan with the radiologist - question of fluid collection behind the bladder but may be a bladder diverticulum Repeat CT scan ordered She has been afebrile Stoma has good output NG tube output has decreased PICC line ordered for TPN as she has not had good oral intake in 2 weeks Exam otherwise benign Continue antibiotics for now WBC down to 13 Time Spent With Patient Time: Total time spent is greater than 50% in coordination of care (as documented) at patient's floor/unit and/or counseling patient: Quality Stroke Does the patient have a stroke diagnosis?: No VTE Prior VTE?: No VTE Risk Level:: Medical - moderate - high VTE Device Contraindication: N/A - Device Ordered VTE Drug Contraindication: N/A - Med Ordered
[2022-03-22 11:44] VITALS: BP 125/61; PULSE 90; RESP 15; TEMP 36; O2SAT 97
--- NOTE | 2022-03-22 12:56 | MHC.CLN ---
TPN NUTRITION CONSULT FOR TPN. NPO DAY 4. PATIENT GETTING PICC LINE TODAY. PER DR. HEMPHILL, START TPN TODAY. DISCUSSED WITH PHARMACY. RD REC TPN DAY 1 (03/20/22): D15AA5 AT 40 ML PER HOUR. PROVIDES 682 KCALS, 48 G PROTEIN. REPLETE LYTES NEEDED, CHECK TRIGLYCERIDES. DAY 2 (03/21/22): TPN D15AA5 AT 60 ML PER HOUR, MAX GOAL RATE. ADD LIPIDS 25 ML OF 20% LIPIDS. PROVIDES 1622 KCALS (26.3 KCALS/KG), 72 G PROTEIN (1.17 G/KG). REPLETE LYTES NEEDED. FOLLOW LABS, TPN, AND MONITOR FOR DIET ADVANCEMENT.
[2022-03-22 13:30] LABS: Albumin Level 3.3 g/dL (3.5-5.0); Magnesium 2.1 mg/dL (1.6-2.6); Phosphorus 3.1 mg/dL (2.7-4.5); Triglycerides 91 mg/dL
[2022-03-22 15:10] VITALS: BP 145/70; PULSE 85; RESP 18; TEMP 35.8; O2SAT 96
--- NOTE | 2022-03-22 15:30 | MHC.CM.PN ---
EMR REVIEWED, PT REMAINS W/NG TUBE IN PLACE AND NPO, NO D/C PLANNED FOR TODAY, CM WILL CONT TO MONITOR D/C NEEDS.
--- NOTE | 2022-03-22 16:08 | PM.EVENT ---
Event Note Date of Service: 03/22/22 Event Note: CT scan reviewed - small-bowel dilatation has improved Fluid collection posterior to the bladder also seems smaller Stable vital signs Abdomen soft Stoma with output Continue NG tube to low wall suction Patient to have PICC line today TPN ordered - discussed with pharmacy Patient's healthcare proxy Nora soliman
[2022-03-22 19:04] VITALS: BP 148/69; PULSE 87; RESP 18; TEMP 34.6; O2SAT 95
[2022-03-23] VITALS: BP 142/67; PULSE 91; RESP 17; TEMP 36; O2SAT 96
[2022-03-23] MEDS: HYDROmorphone HCl 0.5 MG/0.5 ML SYRINGE 0.25 MG IVPUSH ×4 (00:39→15:46)
[2022-03-23 04:00] VITALS: BP 140/65; PULSE 85; RESP 17; TEMP 36.1; O2SAT 94
[2022-03-23] MEDS: Piperacillin Sodium/Tazobactam 2.25 GM in 0.9 % Sodium Chloride 50 ML IV ×4 (04:56→22:59)
[2022-03-23 07:55] VITALS: BP 120/60; PULSE 86; RESP 16; TEMP 36.2; O2SAT 92
--- NOTE | 2022-03-23 08:17 | PM.PNGS ---
Subjective Subjective Date of Service: 03/25/22 Interval history: Feels ?okay? TPN started last night Good urine output Stoma with output Mild pain on incision No vomiting Physical Exam Vital Signs: Vital Signs: Last Vital Signs Temp 97.2 F 03/23/22 07:55 Pulse 86 03/23/22 07:55 Resp 16 03/23/22 07:55 BP 120/60 03/23/22 07:55 Pulse Ox 92 03/23/22 07:55 O2 Del Method 03/23/22 07:55 O2 Flow Rate 3 03/23/22 04:00 Oxygen Flow Rate 3 03/19/22 14:24 BMI result Body Mass Index 22.6 Const: General: comfortable and no acute distress Resp: Effort & Inspection: normal respiratory effort Cardio: Rate: regular rate GI: Other: Soft, incision clean, brown intact, stoma with some bilious output Objective Data Active Medications Hydromorphone HCl (Hydromorphone Hcl 0.5 Mg/0.5 Ml Syringe) 0.25 mg IVPUSH Q3H PRN; Protocol PRN Reason: Pain, Severe (Pain Scale 7-10) Last Admin: 03/23/22 05:33 Dose: 0.25 mg Documented By: CA Piperacillin Sod/Tazobactam (Sod 2.25 gm/ Sodium Chloride) 50 mls @ 100 mls/hr IV Q6H [facility] Last Infusion: 03/23/22 05:37 Dose: 100 mls/hr Documented By: CA Multivitamins 10.5 ml/ Trace Metals 1 ml/ Amino Acids/Electrolytes 960 mls @ 40 mls/hr IV DAILY@1800 [facility] Last Admin: 03/22/22 17:55 Dose: 40 mls/hr Documented By: ADITYA Ondansetron HCl (Ondansetron Hcl 4 Mg/2 Ml Vial) 4 mg IVPUSH Q8H PRN PRN Reason: Nausea Last Admin: 03/21/22 11:22 Dose: 4 mg Documented By: ALISON Pharmacy Consult (Consult Rx Perform Med Rec) 1 each MISCELLANE ONCE PRN PRN Reason: Consult order Labs CBC & Chem 7: 03/25/22 06:35 03/25/22 06:35 Labs: Laboratory Results - last 24 hr 03/22/22 03/22/22 08:44 08:44 MCV 83.9 MCH 24.7 L MCHC 29.5 L RDW 18.3 H Plt Count 670 H MPV 10.2 Absolute Nucleated RBC 0.000 Nucleated RBC % (auto) 0.0 Anion Gap 17 Estim Creat Clear Calc 48.0 Estimated GFR > 60 Random Glucose 85 Calcium 9.0 Phosphorus 3.1 Magnesium 2.1 Albumin 3.3 L Triglycerides 91 Procedures Date of Service Date of Service: 03/23/22 Progress Note: A&P Assessment and plan (1) Postoperative ileus: Status: Acute Assessment and Plan: Stoma with some output Reviewed her CAT scan from yesterday -small-bowel dilatation improving Also, fluid collection posterior to the bladder is much less, contents to be the same as bladder so this is likely to be a bladder diverticulum No CT drainage as discussed with interventional radiologist Okay to DC Zarco Bedside PT Keep NPO in for now until NG tube output decreases WBC much improved Continue TPN Healthcare proxy Nora also updated Time Spent With Patient Time: Total time spent is greater than 50% in coordination of care (as documented) at patient's floor/unit and/or counseling patient: Quality Stroke Does the patient have a stroke diagnosis?: No VTE Prior VTE?: No VTE Risk Level:: Medical - moderate - high VTE Device Contraindication: N/A - Device Ordered VTE Drug Contraindication: N/A - Med Ordered
[2022-03-23 11:15] LABS: Alanine Aminotransferase 9 U/L (0-31); Albumin Level 3.1 g/dL (3.5-5.0); Alkaline Phosphatase 50 U/L (39-117); Aspartate Amino Transferase 13 U/L (5-31); Bilirubin Total 0.3 mg/dL (0.0-1.0); Blood Urea Nitrogen 22 mg/dL (9-16); Calcium 9.3 mg/dL (8.4-10.2); Creatinine Clr Calc Pharmacy 53.1; Estimated Glomerular Filt Rate > 60; Glucose Random 125 mg/dL (60-115); Total Protein 5.4 g/dL (6.5-8.0)
[2022-03-23 11:36] LABS: Anion Gap 13 (12-20); Carbon Dioxide 38 mmol/L (22-29); Chloride 101 mmol/L (96-108); Potassium 3.2 mmol/L (3.3-5.1); Sodium 149 mmol/L (135-145)
[2022-03-23 12:00] VITALS: BP 114/67; PULSE 89; RESP 16; TEMP 36; O2SAT 92
[2022-03-23 12:38] LABS: Magnesium 2.1 mg/dL (1.6-2.6); Phosphorus 3.1 mg/dL (2.7-4.5)
[2022-03-23] MEDS: Dextrose 5 % and 0.45 % NaCl 1,000 ML 60 ML IVCONT (13:48)
[2022-03-23 15:27] VITALS: BP 136/91; PULSE 95; RESP 20; TEMP 36.6
--- NOTE | 2022-03-23 15:43 | PM.EVENT ---
Event Note Date of Service: 03/23/22 Event Note: seen on afternoon rounds mild abdominal pain she has been taking a lot of ice chips so NG tube output is high bilious output from the stoma noted with passage of gas abdomen soft continue NG tube output repeat labs in dieudonne soliman
[2022-03-23] MEDS: Pantoprazole Sodium 40 MG/10 ML VIAL IVPUSH (15:46)
[2022-03-23 19:33] VITALS: BP 119/56; PULSE 84; RESP 20; TEMP 36.6; O2SAT 96
[2022-03-24] VITALS (8 sets, daily range): BP systolic 114–131; BP diastolic 57–65; PULSE 77–89; RESP 15–18; TEMP 36.1–37.2; O2SAT 98–100
[2022-03-24] MEDS: HYDROmorphone HCl 0.5 MG/0.5 ML SYRINGE 0.25 MG IVPUSH ×3 (03:00→20:46)
[2022-03-24] MEDS: Piperacillin Sodium/Tazobactam 2.25 GM in 0.9 % Sodium Chloride 50 ML IV ×4 (04:36→22:35)
--- NOTE | 2022-03-24 05:32 | PC.NURSE ---
Pt noted to be retaining about 300 mL urine when bladder scanned. Dr. Weems notified and ordered to place ambrose. 16g indwelling catheter placed 0520. 500mL drained yellow urine.
[2022-03-24] MEDS: Pantoprazole Sodium 40 MG/10 ML VIAL IVPUSH ×2 (05:37→17:18)
[2022-03-24 06:03] LABS: Hematocrit 28.9 % (37.0-47.0); Hemoglobin 8.8 g/dl (12.0-16.0); Mean Corpuscular HGB Conc 30.4 g/dl (31.0-35.0); Mean Corpuscular Hemoglobin 25.4 pg (27.0-33.0); Mean Corpuscular Volume 83.3 fL (80.0-98.0); PLT CLUMP 1; Red Blood Count 3.47 X10*6/uL (4.20-5.50); Red Cell Distribution Width 18.1 % (11.0-16.0)
[2022-03-24 06:42] LABS: Anion Gap 15 (12-20); Blood Urea Nitrogen 22 mg/dL (9-16); Calcium 8.7 mg/dL (8.4-10.2); Carbon Dioxide 33 mmol/L (22-29); Chloride 101 mmol/L (96-108); Creatinine Clr Calc Pharmacy 54.5; Estimated Glomerular Filt Rate > 60; Glucose Random 134 mg/dL (60-115); Potassium 3.2 mmol/L (3.3-5.1); Sodium 146 mmol/L (135-145)
[2022-03-24 06:43] LABS: White Blood Count 11.6 X10*3/uL (4.8-10.8)
[2022-03-24] MEDS: Dextrose 5 % and 0.45 % NaCl 1,000 ML 60 ML IVCONT (07:49)
[2022-03-24 09:06] LABS: Albumin Level 2.9 g/dL (3.5-5.0); Magnesium 1.8 mg/dL (1.6-2.6); Phosphorus 3.2 mg/dL (2.7-4.5); Triglycerides 118 mg/dL
--- NOTE | 2022-03-24 10:40 | PM.PNGS ---
Subjective Subjective Date of Service: 03/25/22 Interval history: says she feels okay today no events reported taking a lot of ice chips Zarco reinserted because of urinary retention Physical Exam Vital Signs: Vital Signs: Last Vital Signs Temp 97.8 F 03/24/22 08:00 Pulse 80 03/24/22 08:00 Resp 15 03/24/22 08:00 BP 128/59 L 03/24/22 08:00 Pulse Ox 99 03/24/22 08:00 O2 Del Method 03/24/22 08:00 O2 Flow Rate 3 03/24/22 08:00 Oxygen Flow Rate 3 03/19/22 14:24 BMI result Body Mass Index 22.6 Const: General: comfortable and no acute distress Resp: Effort & Inspection: normal respiratory effort Cardio: Rate: regular rate GI: Other: stoma with bilious output, incision clean Palpation (GI): Soft to palpation Objective Data Active Medications Hydromorphone HCl (Hydromorphone Hcl 0.5 Mg/0.5 Ml Syringe) 0.25 mg IVPUSH Q3H PRN; Protocol PRN Reason: Pain, Severe (Pain Scale 7-10) Last Admin: 03/24/22 09:11 Dose: 0.25 mg Documented By: LYNN Piperacillin Sod/Tazobactam (Sod 2.25 gm/ Sodium Chloride) 50 mls @ 100 mls/hr IV Q6H [facility] Last Infusion: 03/24/22 05:33 Dose: 0 mls/hr Documented By: JED Potassium Chloride 20 meq/Magnesium Sulfate 10 meq/Potassium Phosphate 30 mmol/Calcium Gluconate 9.3 meq/Multivitamins 14 ml/ Trace Metals 1.4 ml/ Amino Acids/Dextrose 1,440 mls @ 60 mls/hr IV DAILY@1800 [facility] Stop: 03/24/22 17:59 Last Admin: 03/23/22 17:20 Dose: 60 mls/hr Documented By: ADITYA Dextrose/Sodium Chloride (D51/2ns) 1,000 mls @ 60 mls/hr IVCONT .[id number] [facility] Last Admin: 03/24/22 07:49 Dose: 60 mls/hr Documented By: LYNN Ondansetron HCl (Ondansetron Hcl 4 Mg/2 Ml Vial) 4 mg IVPUSH Q8H PRN PRN Reason: Nausea Last Admin: 03/21/22 11:22 Dose: 4 mg Documented By: ALISON Pantoprazole Sodium (Pantoprazole Sodium 40 Mg/10 Ml Vial) 40 mg IVPUSH BID@0630,1630 [facility] Last Admin: 03/24/22 05:37 Dose: 40 mg Documented By: JED Pharmacy Consult (Consult Rx Perform Med Rec) 1 each MISCELLANE ONCE PRN PRN Reason: Consult order Labs CBC & Chem 7: 03/25/22 06:35 03/25/22 06:35 Labs: Laboratory Results - last 24 hr 03/23/22 03/24/22 03/24/22 10:39 05:53 05:53 MCV 83.3 MCH 25.4 L MCHC 30.4 L RDW 18.1 H Plt Count TNP MPV TNP Absolute Nucleated RBC 0.000 Nucleated RBC % (auto) 0.0 Anion Gap 13 15 Estim Creat Clear Calc 53.1 54.5 Estimated GFR > 60 > 60 Random Glucose 125 H 134 H Calcium 9.3 8.7 D Phosphorus 3.1 3.2 Magnesium 2.1 1.8 Total Bilirubin 0.3 AST 13 D ALT 9 Alkaline Phosphatase 50 D Total Protein 5.4 L Albumin 3.1 L 2.9 L Triglycerides 118 Procedures Date of Service Date of Service: 03/24/22 Progress Note: A&P Assessment and plan (1) Postoperative ileus: Status: Acute Assessment and Plan: stoma functioning will see how NG tube output is - difficult to assess because she takes a lot of ice chips, practically drinking water abdomen soft replace potassium TPN hemoglobin low - may be from chronic disease, no obvious significant monitor hemoglobin out of bed to chair healthcare proxy Nora updated Time Spent With Patient Time: Total time spent is greater than 50% in coordination of care (as documented) at patient's floor/unit and/or counseling patient: Quality Stroke Does the patient have a stroke diagnosis?: No VTE Prior VTE?: No VTE Risk Level:: Medical - moderate - high VTE Device Contraindication: N/A - Device Ordered VTE Drug Contraindication: N/A - Med Ordered
--- NOTE | 2022-03-24 10:48 | MHC.CLN ---
F/U PICC LINE INSERTED AND TPN STARTED 03/22. CONTINUES NPO WITH NG TUBE OUTPUT. LABS REVIEWED. DISCUSSED WITH PHARMACY. CONTINUE TPN D15AA5 AT 60 ML PER HOUR, MAX GOAL RATE. LIPIDS 25 ML OF 20% LIPIDS. PROVIDES 1622 KCALS (26.3 KCALS/KG), 72 G PROTEIN (1.17 G/KG). REPLETE LYTES NEEDED. FOLLOW LABS, TPN, AND MONITOR FOR DIET ADVANCEMENT.
[2022-03-25] MEDS: Dextrose 5 % and 0.45 % NaCl 1,000 ML 60 ML IVCONT (00:26)
[2022-03-25 03:13] VITALS: BP 123/60; PULSE 85; RESP 16; TEMP 36.6; O2SAT 96
[2022-03-25] MEDS: Piperacillin Sodium/Tazobactam 2.25 GM in 0.9 % Sodium Chloride 50 ML IV ×4 (05:54→22:06)
[2022-03-25] MEDS: Pantoprazole Sodium 40 MG/10 ML VIAL IVPUSH ×2 (05:54→16:16)
[2022-03-25 06:54] LABS: Hematocrit 27.7 % (37.0-47.0); Hemoglobin 8.6 g/dl (12.0-16.0); Mean Corpuscular Hemoglobin 25.2 pg (27.0-33.0); Mean Corpuscular Volume 81.2 fL (80.0-98.0); Mean Platelet Volume 10.2 fL (9.4-12.3); Platelet Count 431 X10*3/uL (160-400); Red Blood Count 3.41 X10*6/uL (4.20-5.50); Red Cell Distribution Width 17.5 % (11.0-16.0); White Blood Count 15.1 X10*3/uL (4.8-10.8)
[2022-03-25 07:20] LABS: Anion Gap 14 (12-20); Blood Urea Nitrogen 23 mg/dL (9-16); Calcium 8.2 mg/dL (8.4-10.2); Carbon Dioxide 28 mmol/L (22-29); Chloride 100 mmol/L (96-108); Creatinine Clr Calc Pharmacy 58.5; Estimated Glomerular Filt Rate > 60; Glucose Random 130 mg/dL (60-115); Potassium 3.5 mmol/L (3.3-5.1); Sodium 138 mmol/L (135-145)
[2022-03-25 07:57] VITALS: BP 133/64; PULSE 95; RESP 18; TEMP 36.1; O2SAT 97
--- NOTE | 2022-03-25 08:46 | P.PNGS_ITS ---
Subjective Subjective Date of Service: 03/26/22 Interval history: no new complaints says she feels weak and tired doesn't sleep well at night was on recliner for most part yesterday Physical Exam Vital Signs: Vital Signs: Last Vital Signs Temp 97.0 F 03/25/22 07:57 Pulse 95 03/25/22 07:57 Resp 18 03/25/22 07:57 BP 133/64 03/25/22 07:57 Pulse Ox 97 03/25/22 07:57 O2 Del Method 03/25/22 07:57 O2 Flow Rate 3 03/25/22 07:57 Oxygen Flow Rate 3 03/19/22 14:24 BMI result Body Mass Index 22.6 Const: General: comfortable and no acute distress Resp: Effort & Inspection: normal respiratory effort Cardio: Rate: regular rate GI: Other: stoma with some output Palpation (GI): Soft to palpation, not firm and no guarding Objective Data Active Medications Hydromorphone HCl (Hydromorphone Hcl 0.5 Mg/0.5 Ml Syringe) 0.25 mg IVPUSH Q3H PRN; Protocol PRN Reason: Pain, Severe (Pain Scale 7-10) Last Admin: 03/24/22 20:46 Dose: 0.25 mg Documented By: JEET Piperacillin Sod/Tazobactam (Sod 2.25 gm/ Sodium Chloride) 50 mls @ 100 mls/hr IV Q6H [facility] Last Infusion: 03/25/22 06:29 Dose: 0 mls/hr Documented By: ARNOLD Dextrose/Sodium Chloride (D51/2ns) 1,000 mls @ 60 mls/hr IVCONT .[id number] [facility] Last Admin: 03/25/22 00:26 Dose: 60 mls/hr Documented By: ARNOLD Potassium Chloride 30 meq/Magnesium Sulfate 10 meq/Potassium Phosphate 38 mmol/Calcium Gluconate 9.3 meq/Multivitamins 14 ml/ Trace Metals 1.4 ml/ Amino Acids/Dextrose 1,440 mls @ 60 mls/hr IV DAILY@1800 [facility] Last Admin: 03/24/22 19:39 Dose: 60 mls/hr Documented By: JEET Ondansetron HCl (Ondansetron Hcl 4 Mg/2 Ml Vial) 4 mg IVPUSH Q8H PRN PRN Reason: Nausea Last Admin: 03/21/22 11:22 Dose: 4 mg Documented By: ALISON Pantoprazole Sodium (Pantoprazole Sodium 40 Mg/10 Ml Vial) 40 mg IVPUSH BID@0630,1630 DEVOR[facility] Last Admin: 03/25/22 05:54 Dose: 40 mg Documented By: ARNOLD Pharmacy Consult (Consult Rx Perform Med Rec) 1 each MISCELLANE ONCE PRN PRN Reason: Consult order Labs CBC & Chem 7: 03/25/22 06:35 03/26/22 08:18 Labs: Laboratory Results - last 24 hr 03/24/22 03/25/22 03/25/22 05:53 06:35 06:35 MCV 81.2 MCH 25.2 L MCHC 31.0 RDW 17.5 H Plt Count 431 H D MPV 10.2 Absolute Nucleated RBC 0.000 Nucleated RBC % (auto) 0.0 Anion Gap 14 Estim Creat Clear Calc 58.5 Estimated GFR > 60 Random Glucose 130 H Calcium 8.2 L Phosphorus 3.2 Magnesium 1.8 Albumin 2.9 L Triglycerides 118 Microbiology Microbiology Results: Microbiology 03/19/22 17:24 Blood Culture - Final Blood - Venous No growth after 5 days. 03/19/22 17:06 Blood Culture - Final Blood - Venous No growth after 5 days. Procedures Date of Service Date of Service: 03/25/22 Progress Note: A&P Assessment and plan (1) Postoperative ileus: Start date: 03/25/22 Status: Acute Assessment and Plan: abd soft WBC has bumped up no fever keep ambrose in due to retention TPN clamp NGT nd see if she has residuals OOB follow WBC Time Spent With Patient Time: Total time spent is greater than 50% in coordination of care (as documented) at patient's floor/unit and/or counseling patient: Quality Stroke Does the patient have a stroke diagnosis?: No VTE Prior VTE?: No VTE Risk Level:: Medical - moderate - high VTE Device Contraindication: N/A - Device Ordered VTE Drug Contraindication: N/A - Med Ordered
[2022-03-25 09:50] LABS: Albumin Level 2.9 g/dL (3.5-5.0); Magnesium 1.7 mg/dL (1.6-2.6); Phosphorus 3.2 mg/dL (2.7-4.5)
[2022-03-25 11:41] VITALS: BP 145/71; PULSE 100; RESP 16; TEMP 36.2; O2SAT 98
[2022-03-25] MEDS: HYDROmorphone HCl 0.5 MG/0.5 ML SYRINGE 0.25 MG IVPUSH ×2 (12:27→22:06)
--- NOTE | 2022-03-25 14:50 | PM.EVENT ---
Event Note Date of Service: 03/25/22 Event Note: NGT clamped for 5 hours residual about 100cc stoma with good output will keep NGT in for now reassess NGT bethany seems to be coming along
[2022-03-25 15:07] VITALS: BP 121/59; PULSE 100; RESP 18; TEMP 36.4; O2SAT 99
[2022-03-25] MEDS: Fat Emulsions 20% 250 ML 25 ML IV (18:17)
[2022-03-25 19:00] VITALS: BP 128/60; PULSE 102; RESP 17; TEMP 36.3; O2SAT 97
[2022-03-25] MEDS: Lidocaine 4 % Patch ADH..PATCH 1 PATCH TRANSDERMA (22:06)
[2022-03-25] MEDS: Zolpidem Tartrate 5 MG TABLET PO (22:06)
[2022-03-25 23:28] VITALS: BP 127/61; PULSE 99; RESP 18; TEMP 36.2; O2SAT 96
[2022-03-26] VITALS (7 sets, daily range): BP systolic 116–138; BP diastolic 55–67; PULSE 88–108; RESP 14–18; TEMP 36–36.9; O2SAT 96–98
[2022-03-26] MEDS: Fat Emulsions 20% 250 ML 25 ML IV ×3 (00:04→23:51)
[2022-03-26] MEDS: Pantoprazole Sodium 40 MG/10 ML VIAL IVPUSH ×2 (04:57→15:25)
[2022-03-26] MEDS: Piperacillin Sodium/Tazobactam 2.25 GM in 0.9 % Sodium Chloride 50 ML IV ×4 (04:57→23:52)
[2022-03-26 08:46] LABS: Anion Gap 12 (12-20); Blood Urea Nitrogen 22 mg/dL (9-16); Calcium 7.9 mg/dL (8.4-10.2); Carbon Dioxide 24 mmol/L (22-29); Chloride 102 mmol/L (96-108); Creatinine Clr Calc Pharmacy 58.5; Estimated Glomerular Filt Rate > 60; Glucose Random 137 mg/dL (60-115); Magnesium 1.9 mg/dL (1.6-2.6); Phosphorus 3.3 mg/dL (2.7-4.5); Potassium 3.4 mmol/L (3.3-5.1); Sodium 135 mmol/L (135-145)
--- NOTE | 2022-03-26 09:30 | P.PNGS_ITS ---
Subjective Subjective Date of Service: 03/27/22 Interval history: no events overnight was able to sleep - given Ambien stoma with output but volume not documented Physical Exam Vital Signs: Vital Signs: Last Vital Signs Temp 98.2 F 03/26/22 07:33 Pulse 96 03/26/22 07:33 Resp 17 03/26/22 07:33 BP 123/60 03/26/22 07:33 Pulse Ox 96 03/26/22 07:33 O2 Del Method 03/26/22 07:33 O2 Flow Rate 3 03/26/22 07:33 Oxygen Flow Rate 3 03/19/22 14:24 BMI result Body Mass Index 22.6 Const: Other: frail looking as baseline General: comfortable and no acute distress Resp: Effort & Inspection: normal respiratory effort Cardio: Rate: regular rate GI: Other: stoma with bilious output, incision clean Palpation (GI): Soft to palpation, not firm and no guarding : Other: Zarco in, good UO Objective Data Active Medications Hydromorphone HCl (Hydromorphone Hcl 0.5 Mg/0.5 Ml Syringe) 0.25 mg IVPUSH Q3H PRN; Protocol PRN Reason: Pain, Severe (Pain Scale 7-10) Last Admin: 03/25/22 22:06 Dose: 0.25 mg Documented By: ERNESTO Piperacillin Sod/Tazobactam (Sod 2.25 gm/ Sodium Chloride) 50 mls @ 100 mls/hr IV Q6H [facility] Last Infusion: 03/26/22 05:28 Dose: 0 mls/hr Documented By: ERNESTO Potassium Chloride 30 meq/Magnesium Sulfate 10 meq/Potassium Phosphate 38 mmol/Calcium Gluconate 9.3 meq/Multivitamins 14 ml/ Trace Metals 1.4 ml/ Amino Acids/Dextrose 1,440 mls @ 60 mls/hr IV DAILY@1800 [facility] Last Admin: 03/25/22 18:16 Dose: Not Given Documented By: ROSANGELA Non-Admin Reason: Duplicate Order Potassium Chloride 30 meq/Magnesium Sulfate 10 meq/Potassium Phosphate 38 mmol/Calcium Gluconate 9.3 meq/Multivitamins 14 ml/ Trace Metals 1.4 ml/ Amino Acids/Dextrose 1,440 mls @ 60 mls/hr IV DAILY@1800 DEVORAH Stop: 03/26/22 17:59 Last Admin: 03/25/22 17:57 Dose: 60 mls/hr Documented By: ROSANGELA Lidocaine (Lidocaine 4 % Patch Adh..Patch) 1 patch TRANSDERMA DAILY [facility]; Protocol Last Admin: 03/25/22 22:06 Dose: 1 patch Documented By: ERNESTO Ondansetron HCl (Ondansetron Hcl 4 Mg/2 Ml Vial) 4 mg IVPUSH Q8H PRN PRN Reason: Nausea Last Admin: 03/21/22 11:22 Dose: 4 mg Documented By: ALISON Pantoprazole Sodium (Pantoprazole Sodium 40 Mg/10 Ml Vial) 40 mg IVPUSH BI D@0630,1630 [facility] Last Admin: 03/26/22 04:57 Dose: 40 mg Documented By: ERNESTO Pharmacy Consult (Consult Rx Perform Med Rec) 1 each MISCELLANE ONCE PRN PRN Reason: Consult order Zolpidem Tartrate (Zolpidem Tartrate 5 Mg Tablet) 5 mg PO BEDTIME PRN PRN Reason: Insomnia Last Admin: 03/25/22 22:06 Dose: 5 mg Documented By: ERNESTO Labs CBC & Chem 7: 03/25/22 06:35 03/27/22 09:26 Labs: Laboratory Results - last 24 hr 03/25/22 03/26/22 06:35 08:18 Anion Gap 12 Estim Creat Clear Calc 58.5 Estimated GFR > 60 Random Glucose 137 H Calcium 7.9 L Phosphorus 3.2 3.3 Magnesium 1.7 1.9 Albumin 2.9 L Procedures Date of Service Date of Service: 03/26/22 Progress Note: A&P Assessment and plan (1) Postoperative ileus: Status: Acute Assessment and Plan: NGT residuals still on the high side yestrrday after clamping NGT clamping again today, check residuals later stoma with output no fever continue TPN OOB to chair follow labs tomorrow await resolution of ileus Time Spent With Patient Time: Total time spent is greater than 50% in coordination of care (as documented) at patient's floor/unit and/or counseling patient: Quality Stroke Does the patient have a stroke diagnosis?: No VTE Prior VTE?: No VTE Risk Level:: Medical - moderate - high VTE Device Contraindication: N/A - Device Ordered VTE Drug Contraindication: N/A - Med Ordered
[2022-03-26] MEDS: Lidocaine 4 % Patch ADH..PATCH 1 PATCH TRANSDERMA (11:24)
--- NOTE | 2022-03-26 14:57 | PM.EVENT ---
Event Note Date of Service: 03/26/22 Event Note: NGT was clamped all day released now, output was about 100 cc good stoma output told her that we can remove NG tube tonight although there is risk of her requiring reinsertion she wants to keep the NG tube overnight and moved tomorrow TPN reorder labs in a.m. Zarco in place because of urinary retention - will reach out to tomorrow
[2022-03-26] MEDS: Zolpidem Tartrate 5 MG TABLET PO (21:58)
--- NOTE | 2022-03-26 22:09 | PC.NURSE ---
No NG outpt from [id number]
[2022-03-27 03:43] VITALS: BP 125/60; PULSE 112; RESP 18; TEMP 37.1; O2SAT 95
[2022-03-27] MEDS: Piperacillin Sodium/Tazobactam 2.25 GM in 0.9 % Sodium Chloride 50 ML IV ×4 (05:25→21:58)
[2022-03-27 07:38] VITALS: BP 140/55; PULSE 100; RESP 15; TEMP 36.9; O2SAT 97
--- NOTE | 2022-03-27 07:49 | PM.PNGS ---
Subjective Subjective Date of Service: 03/29/22 Interval history: no new complaints says she couldn't sleep last night until 5am stoma functioning Physical Exam Vital Signs: Vital Signs: Last Vital Signs Temp 98.5 F 03/27/22 07:38 Pulse 100 03/27/22 07:38 Resp 15 03/27/22 07:38 BP 140/55 H 03/27/22 07:38 Pulse Ox 97 03/27/22 07:38 O2 Del Method 03/27/22 07:38 O2 Flow Rate 3 03/27/22 07:38 Oxygen Flow Rate 3 03/19/22 14:24 BMI result Body Mass Index 22.6 Const: Other: frail looking General: comfortable and no acute distress Resp: Effort & Inspection: normal respiratory effort Cardio: Rhythm: regular rhythm GI: Other: stoma with gas and enteric contents Palpation (GI): Soft to palpation and not firm Objective Data Active Medications Hydromorphone HCl (Hydromorphone Hcl 0.5 Mg/0.5 Ml Syringe) 0.25 mg IVPUSH Q3H PRN; Protocol PRN Reason: Pain, Severe (Pain Scale 7-10) Last Admin: 03/25/22 22:06 Dose: 0.25 mg Documented By: ERNESTO Piperacillin Sod/Tazobactam (Sod 2.25 gm/ Sodium Chloride) 50 mls @ 100 mls/hr IV Q6H [facility] Last Infusion: 03/27/22 07:15 Dose: 0 mls/hr Documented By: ARNOLD Potassium Chloride 40 meq/Sodium Chloride 20 meq/Magnesium Sulfate 10 meq/Potassium Phosphate 38 mmol/Calcium Gluconate 9.3 meq/Multivitamins 14 ml/ Trace Metals 1.4 ml/ Amino Acids/Dextrose 1,440 mls @ 60 mls/hr IV DAILY@1800 [facility]OR[facility] Stop: 03/27/22 17:59 Last Admin: 03/26/22 18:18 Dose: 60 mls/hr Documented By: AILYN Lidocaine (Lidocaine 4 % Patch Adh..Patch) 1 patch TRANSDERMA DAILY [facility]; Protocol Last Admin: 03/26/22 11:24 Dose: 1 patch Documented By: LYNN Ondansetron HCl (Ondansetron Hcl 4 Mg/2 Ml Vial) 4 mg IVPUSH Q8H PRN PRN Reason: Nausea Last Admin: 03/21/22 11:22 Dose: 4 mg Documented By: ALISON Pharmacy Consult (Consult Rx Perform Med Rec) 1 each MISCELLANE ONCE PRN PRN Reason: Consult order Zolpidem Tartrate (Zolpidem Tartrate 5 Mg Tablet) 5 mg PO BEDTIME PRN PRN Reason: Insomnia Last Admin: 03/26/22 21:58 Dose: 5 mg Documented By: AILYN Labs CBC & Chem 7: 03/29/22 05:41 03/29/22 05:41 Labs: Laboratory Results - last 24 hr 03/26/22 08:18 Anion Gap 12 Estim Creat Clear Calc 58.5 Estimated GFR > 60 Random Glucose 137 H Calcium 7.9 L Phosphorus 3.3 Magnesium 1.9 Procedures Date of Service Date of Service: 03/28/22 Progress Note: A&P Assessment and plan (1) Postoperative ileus: Status: Acute Assessment and Plan: clamping trial again and hopefully pull out NGT later continue TPN stoma functioning has urinary retention; dw - keep Zarco in for a month OOB to chair incentive spirometry incision healing Time Spent With Patient Time: Total time spent is greater than 50% in coordination of care (as documented) at patient's floor/unit and/or counseling patient: Quality Stroke Does the patient have a stroke diagnosis?: No VTE Prior VTE?: No VTE Risk Level:: Medical - moderate - high VTE Device Contraindication: N/A - Device Ordered VTE Drug Contraindication: N/A - Med Ordered
[2022-03-27] MEDS: Lidocaine 4 % Patch ADH..PATCH 1 PATCH TRANSDERMA (08:08)
[2022-03-27 10:15] LABS: Albumin Level 2.8 g/dL (3.5-5.0); Anion Gap 12 (12-20); Blood Urea Nitrogen 21 mg/dL (9-16); Calcium 8.3 mg/dL (8.4-10.2); Carbon Dioxide 23 mmol/L (22-29); Chloride 106 mmol/L (96-108); Creatinine Clr Calc Pharmacy 59.3; Estimated Glomerular Filt Rate > 60; Glucose Random 132 mg/dL (60-115); Magnesium 1.9 mg/dL (1.6-2.6); Phosphorus 2.8 mg/dL (2.7-4.5); Potassium 4.1 mmol/L (3.3-5.1); Sodium 137 mmol/L (135-145); Triglycerides 72 mg/dL
[2022-03-27 11:08] VITALS: BP 145/64; PULSE 102; RESP 17; TEMP 36.9; O2SAT 97
--- NOTE | 2022-03-27 11:46 | MHC.CM.PN ---
Patient Not yet medically cleared for discharge: Per EMR review, Patient remains with NG tube in place, NG tube may be removed later today (03/27) pending reclamping trial, also on NPO. CM will continue to follow for D/C needs. [facility] and [facility] updated. [facility] added, per pt/family request.
--- NOTE | 2022-03-27 14:37 | MHC.CLN ---
F/U CONTINUES NPO WITH NG TUBE OUTPUT CONTINUE TPN PER DR HEMPHILL LABS REVIEWED; DISCUSSED WITH PHARMACY CONTINUE TPN D15AA5 AT 60 ML PER HOUR WITH 25 ML OF 20% LIPIDS PROVIDES 1622 KCALS (26.3 KCALS/KG), 72 G PROTEIN (1.17 G/KG). REPLETE LYTES NEEDED
[2022-03-27 15:16] VITALS: BP 129/58; PULSE 106; RESP 18; TEMP 36.5; O2SAT 97
--- NOTE | 2022-03-27 16:12 | PM.EVENT ---
Event Note Date of Service: 03/27/22 Event Note: I had the NG tube clamped starting 08:00 o'clock this morning unclamped at 1 - flushed with the about 50 cc of output ileostomy continues to have output she denies any nausea or vomiting NG tube therefore removed keep NPO for now was out of bed to chair
[2022-03-27 19:39] VITALS: BP 131/61; PULSE 103; RESP 18; TEMP 36.3; O2SAT 97
[2022-03-27] MEDS: Zolpidem Tartrate 5 MG TABLET PO (20:17)
[2022-03-27 23:20] VITALS: BP 123/56; PULSE 107; RESP 16; TEMP 36.3; O2SAT 95
[2022-03-28 04:00] VITALS: RESP 16
[2022-03-28] MEDS: Piperacillin Sodium/Tazobactam 2.25 GM in 0.9 % Sodium Chloride 50 ML IV ×4 (04:18→22:58)
[2022-03-28 06:52] LABS: Albumin Level 2.8 g/dL (3.5-5.0); Anion Gap 14 (12-20); Blood Urea Nitrogen 20 mg/dL (9-16); Calcium 8.3 mg/dL (8.4-10.2); Carbon Dioxide 21 mmol/L (22-29); Chloride 108 mmol/L (96-108); Creatinine Clr Calc Pharmacy 60.2; Estimated Glomerular Filt Rate > 60; Glucose Random 118 mg/dL (60-115); Magnesium 1.9 mg/dL (1.6-2.6); Phosphorus 3.4 mg/dL (2.7-4.5); Potassium 4.5 mmol/L (3.3-5.1); Sodium 138 mmol/L (135-145); Triglycerides 91 mg/dL
[2022-03-28 07:51] VITALS: BP 124/59; PULSE 95; RESP 16; TEMP 36.8; O2SAT 97
[2022-03-28] MEDS: Lidocaine 4 % Patch ADH..PATCH 1 PATCH TRANSDERMA (08:09)
--- NOTE | 2022-03-28 09:01 | P.PNGS_ITS ---
Subjective Subjective Date of Service: 04/03/22 Interval history: says she is ok tired denies signficant pain no N/V Physical Exam Vital Signs: Vital Signs: Last Vital Signs Temp 98.2 F 03/28/22 07:51 Pulse 95 03/28/22 07:51 Resp 16 03/28/22 07:51 BP 124/59 L 03/28/22 07:51 Pulse Ox 97 03/28/22 07:51 O2 Del Method 03/28/22 07:51 O2 Flow Rate 3 03/28/22 07:51 Oxygen Flow Rate 3 03/19/22 14:24 BMI result Body Mass Index 22.6 Const: Other: frail looking General: comfortable and no acute distress Resp: Effort & Inspection: normal respiratory effort Cardio: Rate: regular rate GI: Other: soft, stoma with output, Palpation (GI): not firm and no guarding Objective Data Active Medications Hydromorphone HCl (Hydromorphone Hcl 0.5 Mg/0.5 Ml Syringe) 0.25 mg IVPUSH Q3H PRN; Protocol PRN Reason: Pain, Severe (Pain Scale 7-10) Last Admin: 03/25/22 22:06 Dose: 0.25 mg Documented By: ERNESTO Piperacillin Sod/Tazobactam (Sod 2.25 gm/ Sodium Chloride) 50 mls @ 100 mls/hr IV Q6H [facility] Last Infusion: 03/28/22 05:03 Dose: 0 mls/hr Documented By: ZENA Potassium Chloride 40 meq/Sodium Chloride 20 meq/Magnesium Sulfate 10 meq/Potassium Phosphate 38 mmol/Calcium Gluconate 9.3 meq/Multivitamins 14 ml/ Trace Metals 1.4 ml/ Amino Acids/Dextrose 1,440 mls @ 60 mls/hr IV DAILY@1800 S Stop: 03/28/22 17:59 Last Admin: 03/27/22 18:12 Dose: 60 mls/hr Documented By: ROMI Lidocaine (Lidocaine 4 % Patch Adh..Patch) 1 patch TRANSDERMA DAILY [facility]; Protocol Last Admin: 03/28/22 08:09 Dose: 1 patch Documented By: ROMI Ondansetron HCl (Ondansetron Hcl 4 Mg/2 Ml Vial) 4 mg IVPUSH Q8H PRN PRN Reason: Nausea Last Admin: 03/21/22 11:22 Dose: 4 mg Documented By: ALISON Pharmacy Consult (Consult Rx Perform Med Rec) 1 each MISCELLANE ONCE PRN PRN Reason: Consult order Zolpidem Tartrate (Zolpidem Tartrate 5 Mg Tablet) 5 mg PO BEDTIME PRN PRN Reason: Insomnia Last Admin: 03/27/22 20:17 Dose: 5 mg Documented By: ROSAGNELA Labs CBC & Chem 7: 04/02/22 05:50 04/02/22 05:50 Labs: Laboratory Results - last 24 hr 03/27/22 03/28/22 09:26 06:05 Anion Gap 12 14 Estim Creat Clear Calc 59.3 60.2 Estimated GFR > 60 > 60 Random Glucose 132 H 118 H Calcium 8.3 L 8.3 L Phosphorus 2.8 3.4 Magnesium 1.9 1.9 Albumin 2.8 L 2.8 L Triglycerides 72 91 Procedures Date of Service Date of Service: 04/03/22 Progress Note: A&P Assessment and plan (1) Postoperative ileus: Status: Acute Assessment and Plan: NGT dc'ed yesterday clear liquid diet continue TPN - labs ok PT eval encouraged to get out of bed stable VS as per - will need to keep Zarco in for retention dw HCP Nora (2) Acute urinary retention: Status: Acute Time Spent With Patient Time: Total time spent is greater than 50% in coordination of care (as documented) at patient's floor/unit and/or counseling patient: Quality Stroke Does the patient have a stroke diagnosis?: No VTE Prior VTE?: No VTE Risk Level:: Medical - moderate - high VTE Device Contraindication: N/A - Device Ordered VTE Drug Contraindication: N/A - Med Ordered
--- NOTE | 2022-03-28 09:07 | MHC.CLN ---
F/U NG TUBE D/C YESTERDAY PER DIET ADVANCED TO CLEARS CONTINUE TPN PER DR HEMPHILL LABS REVIEWED; DISCUSSED WITH PHARMACY CONTINUE TPN D15AA5 AT 60 ML PER HOUR WITH 25 ML OF 20% LIPIDS PROVIDES 1622 KCALS (26.3 KCALS/KG), 72 G PROTEIN (1.17 G/KG). REPLETE LYTES NEEDED
[2022-03-28 11:19] VITALS: BP 137/62; PULSE 100; RESP 16; TEMP 36.5; O2SAT 98
[2022-03-28 15:08] VITALS: BP 123/60; PULSE 99; RESP 18; TEMP 36.3; O2SAT 97
[2022-03-28 18:54] VITALS: BP 128/58; PULSE 104; RESP 18; TEMP 36.3; O2SAT 98
[2022-03-28] MEDS: Zolpidem Tartrate 5 MG TABLET PO (20:44)
[2022-03-28 23:05] VITALS: BP 118/56; PULSE 88; RESP 17; TEMP 36.6; O2SAT 98
[2022-03-29 04:00] VITALS: BP 136/58; PULSE 95; RESP 17; TEMP 36.1; O2SAT 97
[2022-03-29] MEDS: Piperacillin Sodium/Tazobactam 2.25 GM in 0.9 % Sodium Chloride 50 ML IV ×4 (05:08→22:05)
[2022-03-29 06:21] LABS: Hematocrit 24.5 % (37.0-47.0); Hemoglobin 7.6 g/dl (12.0-16.0); Mean Corpuscular Hemoglobin 25.5 pg (27.0-33.0); Mean Corpuscular Volume 82.2 fL (80.0-98.0); Mean Platelet Volume 11.7 fL (9.4-12.3); Platelet Count 306 X10*3/uL (160-400); Red Blood Count 2.98 X10*6/uL (4.20-5.50); Red Cell Distribution Width 17.7 % (11.0-16.0); White Blood Count 9.6 X10*3/uL (4.8-10.8)
[2022-03-29 07:45] VITALS: BP 124/56; PULSE 98; RESP 20; TEMP 36.5; O2SAT 96
[2022-03-29] MEDS: Lidocaine 4 % Patch ADH..PATCH 1 PATCH TRANSDERMA (08:03)
[2022-03-29 08:30] LABS: Albumin Level 2.8 g/dL (3.5-5.0); Anion Gap 13 (12-20); Blood Urea Nitrogen 20 mg/dL (9-16); Calcium 8.3 mg/dL (8.4-10.2); Carbon Dioxide 21 mmol/L (22-29); Chloride 110 mmol/L (96-108); Creatinine Clr Calc Pharmacy 62.1; Estimated Glomerular Filt Rate > 60; Glucose Random 120 mg/dL (60-115); Phosphorus 3.7 mg/dL (2.7-4.5); Potassium 4.6 mmol/L (3.3-5.1); Sodium 139 mmol/L (135-145); Triglycerides 105 mg/dL
--- NOTE | 2022-03-29 09:33 | P.PNGS_ITS ---
Subjective Subjective Date of Service: 03/31/22 Interval history: She says she feels ?okay? No nausea or vomiting Tolerating clear liquids Stoma with good gas and watery stools Physical Exam Vital Signs: Vital Signs: Last Vital Signs Temp 97.7 F 03/29/22 07:45 Pulse 98 03/29/22 07:45 Resp 20 03/29/22 07:45 BP 124/56 L 03/29/22 07:45 Pulse Ox 96 03/29/22 07:45 O2 Del Method 03/29/22 07:45 O2 Flow Rate 3 03/29/22 07:45 Oxygen Flow Rate 3 03/19/22 14:24 BMI result Body Mass Index 22.6 Const: Other: Frail looking General: comfortable and no acute distress Resp: Effort & Inspection: normal respiratory effort Cardio: Rate: regular rate GI: Other: Soft, stoma with good output, guarding rebound, incision clean and dry Objective Data Active Medications Al Hydroxide/Mg Hydroxide (Magnesium Hydrox/Alum Hydrox 30 Ml Oral.Susp) 15 ml PO TID PRN PRN Reason: Heartburn Hydromorphone HCl (Hydromorphone Hcl 0.5 Mg/0.5 Ml Syringe) 0.25 mg IVPUSH Q3H PRN; Protocol PRN Reason: Pain, Severe (Pain Scale 7-10) Last Admin: 03/25/22 22:06 Dose: 0.25 mg Documented By: ERNESTO Piperacillin Sod/Tazobactam (Sod 2.25 gm/ Sodium Chloride) 50 mls @ 100 mls/hr IV Q6H [facility] Last Infusion: 03/29/22 05:43 Dose: 100 mls/hr Documented By: CA Potassium Chloride 34 meq/Sodium Chloride 20 meq/Magnesium Sulfate 10 meq/Potassium Phosphate 38 mmol/Calcium Gluconate 9.3 meq/Multivitamins 14 ml/ Trace Metals 1.4 ml/ Amino Acids/Dextrose 1,440 mls @ 60 mls/hr IV DAILY@1800 [facility] Stop: 03/29/22 17:59 Last Admin: 03/28/22 17:41 Dose: 60 mls/hr Documented By: ROMI Lidocaine (Lidocaine 4 % Patch Adh..Patch) 1 patch TRANSDERMA DAILY [facility]; Protocol Last Admin: 03/29/22 08:03 Dose: 1 patch Documented By: HO.N-CHARG Ondansetron HCl (Ondansetron Hcl 4 Mg/2 Ml Vial) 4 mg IVPUSH Q8H PRN PRN Reason: Nausea Last Admin: 03/21/22 11:22 Dose: 4 mg Documented By: ALISON Pharmacy Consult (Consult Rx Perform Med Rec) 1 each MISCELLANE ONCE PRN PRN Reason: Consult order Zolpidem Tartrate (Zolpidem Tartrate 5 Mg Tablet) 5 mg PO BEDTIME PRN PRN Reason: Insomnia Last Admin: 03/28/22 20:44 Dose: 5 mg Documented By: CA Labs CBC & Chem 7: 03/30/22 09:33 03/30/22 09:33 Labs: Laboratory Results - last 24 hr 03/29/22 03/29/22 05:41 05:41 MCV 82.2 MCH 25.5 L MCHC 31.0 RDW 17.7 H Plt Count 306 D MPV 11.7 Absolute Nucleated RBC 0.000 Nucleated RBC % (auto) 0.0 Anion Gap 13 Estim Creat Clear Calc 62.1 Estimated GFR > 60 Random Glucose 120 H Calcium 8.3 L Phosphorus 3.7 Magnesium 2.0 Albumin 2.8 L Triglycerides 105 Procedures Date of Service Date of Service: 03/30/22 Progress Note: A&P Assessment and plan (1) Postoperative ileus: Status: Acute Assessment and Plan: Tolerating clear liquids She says she wants to stay with clear liquids for now Diet as tolerated otherwise Hemoglobin low - likely multifactorial Will follow closely Stoma functioning well otherwise Physical therapy Time Spent With Patient Time: Total time spent is greater than 50% in coordination of care (as documented) at patient's floor/unit and/or counseling patient: Quality Stroke Does the patient have a stroke diagnosis?: No VTE Prior VTE?: No VTE Risk Level:: Medical - moderate - high VTE Device Contraindication: N/A - Device Ordered VTE Drug Contraindication: N/A - Med Ordered
--- NOTE | 2022-03-29 10:09 | MHC.CLN ---
F/U DIET ADVANCED TO CLEAR LIQUIDS. TAKING 0-25%. CONTINUE TPN PER DR HEMPHILL LABS REVIEWED; DISCUSSED WITH PHARMACY CONTINUE TPN D15AA5 AT 60 ML PER HOUR WITH 25 ML OF 20% LIPIDS. PROVIDES 1622 KCALS (26.3 KCALS/KG), 72 G PROTEIN (1.17 G/KG). REPLETE LYTES NEEDED.
[2022-03-29] MEDS: Magnesium Hydrox/Alum Hydrox 30 ML ORAL.SUSP 15 ML PO (10:39)
[2022-03-29 11:37] VITALS: BP 138/63; PULSE 102; RESP 20; TEMP 37.1; O2SAT 99
[2022-03-29] MEDS: HYDROmorphone HCl 0.5 MG/0.5 ML SYRINGE 0.25 MG IVPUSH ×2 (13:55→18:04)
--- NOTE | 2022-03-29 14:39 | MHC.CM.PN ---
EMR REVIEWED, PT REMAINS ON TPN, PT TOLERATING CLEAR LIQUIDS HOWEVER NOT READY FOR DIET TO ADVANCE, CM WILL CONT TO FOLLOW D/C NEEDS.
[2022-03-29 16:00] VITALS: BP 113/58; PULSE 100; RESP 18; TEMP 36.3; O2SAT 95
[2022-03-29 20:00] VITALS: BP 127/60; PULSE 98; RESP 16; TEMP 36.3; O2SAT 99
[2022-03-29] MEDS: Zolpidem Tartrate 5 MG TABLET PO (22:05)
[2022-03-29 23:20] VITALS: BP 130/59; PULSE 100; RESP 20; TEMP 36; O2SAT 97
[2022-03-30 02:46] VITALS: BP 120/60; PULSE 100; RESP 14; TEMP 36.6; O2SAT 98
[2022-03-30] MEDS: Magnesium Hydrox/Alum Hydrox 30 ML ORAL.SUSP 15 ML PO (05:27)
[2022-03-30 07:37] VITALS: BP 110/55; PULSE 104; RESP 15; TEMP 36.6; O2SAT 98
--- NOTE | 2022-03-30 08:10 | PM.PNGS ---
Subjective Subjective Date of Service: 04/03/22 Interval history: says she feels ok no N/V wants to eat Physical Exam Vital Signs: Vital Signs: Last Vital Signs Temp 97.8 F 03/30/22 07:37 Pulse 104 H 03/30/22 07:37 Resp 15 03/30/22 07:37 BP 110/55 L 03/30/22 07:37 Pulse Ox 98 03/30/22 07:37 O2 Del Method 03/30/22 07:37 O2 Flow Rate 3 03/30/22 07:37 Oxygen Flow Rate 3 03/19/22 14:24 BMI result Body Mass Index 22.6 Const: Other: frail looking General: comfortable and no acute distress Resp: Effort & Inspection: normal respiratory effort Cardio: Rate: regular rate GI: Other: stoma with good air and liquid stool Palpation (GI): Soft to palpation, no guarding and not rigid : Other: Zarco in, good UO Objective Data Active Medications Al Hydroxide/Mg Hydroxide (Magnesium Hydrox/Alum Hydrox 30 Ml Oral.Susp) 15 ml PO TID PRN PRN Reason: Heartburn Last Admin: 03/30/22 05:27 Dose: 15 ml Documented By: CA Hydromorphone HCl (Hydromorphone Hcl 0.5 Mg/0.5 Ml Syringe) 0.25 mg IVPUSH Q3H PRN; Protocol PRN Reason: Pain, Severe (Pain Scale 7-10) Last Admin: 03/29/22 18:04 Dose: 0.25 mg Documented By: BÁRBARA Potassium Chloride 34 meq/Sodium Chloride 20 meq/Magnesium Sulfate 10 meq/Potassium Phosphate 38 mmol/Calcium Gluconate 9.3 meq/Multivitamins 14 ml/ Trace Metals 1.4 ml/ Amino Acids/Dextrose 1,440 mls @ 60 mls/hr IV DAILY@1800 DEVORAH Stop: 03/30/22 17:59 Last Admin: 03/29/22 18:15 Dose: 60 mls/hr Documented By: BÁRBARA Lidocaine (Lidocaine 4 % Patch Adh..Patch) 1 patch TRANSDERMA DAILY [facility]; Protocol Last Admin: 03/29/22 08:03 Dose: 1 patch Documented By: BÁRBARA Ondansetron HCl (Ondansetron Hcl 4 Mg/2 Ml Vial) 4 mg IVPUSH Q8H PRN PRN Reason: Nausea Last Admin: 03/21/22 11:22 Dose: 4 mg Documented By: ALISON Pharmacy Consult (Consult Rx Perform Med Rec) 1 each MISCELLANE ONCE PRN PRN Reason: Consult order Zolpidem Tartrate (Zolpidem Tartrate 5 Mg Tablet) 5 mg PO BEDTIME PRN PRN Reason: Insomnia Last Admin: 03/29/22 22:05 Dose: 5 mg Documented By: CA Labs CBC & Chem 7: 04/02/22 05:50 04/02/22 05:50 Labs: Laboratory Results - last 24 hr 03/29/22 05:41 Anion Gap 13 Estim Creat Clear Calc 62.1 Estimated GFR > 60 Random Glucose 120 H Calcium 8.3 L Phosphorus 3.7 Magnesium 2.0 Albumin 2.8 L Triglycerides 105 Procedures Date of Service Date of Service: 03/30/22 Progress Note: A&P Time Spent With Patient Time: Total time spent is greater than 50% in coordination of care (as documented) at patient's floor/unit and/or counseling patient: Quality Stroke Does the patient have a stroke diagnosis?: No VTE Prior VTE?: No VTE Risk Level:: Medical - moderate - high VTE Device Contraindication: N/A - Device Ordered VTE Drug Contraindication: N/A - Med Ordered
[2022-03-30] MEDS: HYDROmorphone HCl 0.5 MG/0.5 ML SYRINGE 0.25 MG IVPUSH ×4 (09:04→21:13)
[2022-03-30 09:56] LABS: Hemoglobin 7.7 g/dl (12.0-16.0)
[2022-03-30 10:07] LABS: Anion Gap 12 (12-20); Blood Urea Nitrogen 22 mg/dL (9-16); Calcium 8.5 mg/dL (8.4-10.2); Carbon Dioxide 22 mmol/L (22-29); Chloride 108 mmol/L (96-108); Estimated Glomerular Filt Rate > 60; Glucose Random 98 mg/dL (60-115); Potassium 4.9 mmol/L (3.3-5.1); Sodium 137 mmol/L (135-145)
[2022-03-30 10:09] LABS: Phosphorus 3.7 mg/dL (2.7-4.5); Triglycerides 90 mg/dL
--- NOTE | 2022-03-30 10:36 | MHC.CLN ---
F/U DIET ADVANCED TO BLAND TODAY LABS REVIEWED; DISCUSSED WITH PHARMACY CONTINUE TPN D15AA5 AT 60 ML PER HOUR WITH 25 ML OF 20% LIPIDS PROVIDES 1622 KCALS (26.3 KCALS/KG), 72 G PROTEIN (1.17 G/KG) REPLETE LYTES NEEDED MONITOR PO INTAKE CLOSELY
[2022-03-30 12:00] VITALS: BP 120/56; PULSE 98; RESP 16; TEMP 36.4; O2SAT 97
[2022-03-30] MEDS: Lidocaine 4 % Patch ADH..PATCH 1 PATCH TRANSDERMA (15:02)
[2022-03-30 16:00] VITALS: BP 112/59; PULSE 93; RESP 18; TEMP 36.4; O2SAT 98
[2022-03-30] MEDS: Fat Emulsions 20% 250 ML 25 ML IV (17:16)
[2022-03-30 19:45] VITALS: BP 132/69; PULSE 102; RESP 20; TEMP 37.4; O2SAT 98
[2022-03-30] MEDS: diphenhydrAMINE HCL 50 MG/ML VIAL 25 MG IVPUSH (21:49)
[2022-03-30 23:20] VITALS: BP 122/60; PULSE 66; RESP 18; TEMP 36.3; O2SAT 98
[2022-03-31] VITALS (7 sets, daily range): BP systolic 120–133; BP diastolic 56–62; PULSE 97–114; RESP 14–18; TEMP 36.2–36.6; O2SAT 95–99
[2022-03-31] MEDS: Fat Emulsions 20% 250 ML 25 ML IV (00:15)
--- NOTE | 2022-03-31 04:59 | PC.NURSE ---
Pt asked for an aMbien to help her sleep last night, made aware, Dr. Infante ordered Benadryl 25 mg IV, slept after.
--- NOTE | 2022-03-31 08:13 | P.PNGS_ITS ---
Subjective Subjective Date of Service: 04/03/22 Interval history: says she is ok tolerating diet stoma functioning Physical Exam Vital Signs: Vital Signs: Last Vital Signs Temp 97.2 F 03/31/22 07:27 Pulse 101 H 03/31/22 07:27 Resp 18 03/31/22 07:27 BP 133/62 03/31/22 07:27 Pulse Ox 98 03/31/22 07:27 O2 Del Method 03/31/22 07:27 O2 Flow Rate 3 03/31/22 07:27 Oxygen Flow Rate 3 03/19/22 14:24 BMI result Body Mass Index 22.6 Const: Other: frail looking General: no acute distress Resp: Effort & Inspection: normal respiratory effort Cardio: Rate: regular rate GI: Other: Stoma with good gas and liquid stool, incision wellhealed Palpation (GI): Soft to palpation and not firm Objective Data Active Medications Al Hydroxide/Mg Hydroxide (Magnesium Hydrox/Alum Hydrox 30 Ml Oral.Susp) 15 ml PO TID PRN PRN Reason: Heartburn Last Admin: 03/30/22 05:27 Dose: 15 ml Documented By: CA Hydromorphone HCl (Hydromorphone Hcl 0.5 Mg/0.5 Ml Syringe) 0.25 mg IVPUSH Q3H PRN; Protocol PRN Reason: Pain, Severe (Pain Scale 7-10) Last Admin: 03/30/22 21:13 Dose: 0.25 mg Documented By: CASTILRitika Potassium Chloride 34 meq/Sodium Chloride 20 meq/Magnesium Sulfate 10 meq/Potassium Phosphate 38 mmol/Calcium Gluconate 9.3 meq/Multivitamins 14 ml/ Trace Metals 1.4 ml/ Amino Acids/Dextrose 1,440 mls @ 60 mls/hr IV DAILY@1800 [facility] Stop: 03/31/22 17:59 Last Admin: 03/30/22 17:14 Dose: 60 mls/hr Documented By: ADITYA Lidocaine (Lidocaine 4 % Patch Adh..Patch) 1 patch TRANSDERMA DAILY [facility]; Protocol Last Admin: 03/30/22 15:02 Dose: 1 patch Documented By: ADITYA Ondansetron HCl (Ondansetron Hcl 4 Mg/2 Ml Vial) 4 mg IVPUSH Q8H PRN PRN Reason: Nausea Last Admin: 03/21/22 11:22 Dose: 4 mg Documented By: ALISON Pharmacy Consult (Consult Rx Perform Med Rec) 1 each MISCELLANE ONCE PRN PRN Reason: Consult order Labs CBC & Chem 7: 04/02/22 05:50 04/02/22 05:50 Labs: Laboratory Results - last 24 hr 03/30/22 03/30/22 09:33 09:33 Anion Gap 12 Estim Creat Clear Calc 64.0 Estimated GFR > 60 Random Glucose 98 Calcium 8.5 Phosphorus 3.7 Magnesium 2.0 Albumin 3.0 L Triglycerides 90 Procedures Date of Service Date of Service: 04/03/22 Progress Note: A&P Assessment and plan (1) Postoperative ileus: Status: Acute Assessment and Plan: tolerating diet but oral intake still suboptimal continue TPN for now Hg low but has been stable - no overt signs of bleeding; likely multifactorial stoma functioning PT - getting OOB to chair, still very frail and deconditioned eventually will need Rehab/SNF Time Spent With Patient Time: Total time spent is greater than 50% in coordination of care (as documented) at patient's floor/unit and/or counseling patient: Quality Stroke Does the patient have a stroke diagnosis?: No VTE Prior VTE?: No VTE Risk Level:: Medical - moderate - high VTE Device Contraindication: N/A - Device Ordered VTE Drug Contraindication: N/A - Med Ordered
--- NOTE | 2022-03-31 12:42 | MHC.CLN ---
F/U DIET ADVANCED TO BLAND ON 03/30. PER MD NOTE, TOLERATING DIET BUT INTAKE STILL SUBOPTIMAL. CONTINUE TPN. DISCUSSED WITH PHARMACY. CONTINUE TPN [id number] AT 60 ML PER HOUR WITH 25 ML OF 20% LIPIDS PROVIDES 1622 KCALS (26.3 KCALS/KG), 72 G PROTEIN (1.17 G/KG) REPLETE LYTES NEEDED. MONITOR PO INTAKE CLOSELY.
[2022-03-31 12:47] LABS: Albumin Level 3.1 g/dL (3.5-5.0); Anion Gap 14 (12-20); Blood Urea Nitrogen 27 mg/dL (9-16); Calcium 8.6 mg/dL (8.4-10.2); Carbon Dioxide 21 mmol/L (22-29); Chloride 108 mmol/L (96-108); Estimated Glomerular Filt Rate > 60; Glucose Random 95 mg/dL (60-115); Phosphorus 4.4 mg/dL (2.7-4.5); Potassium 4.9 mmol/L (3.3-5.1); Sodium 138 mmol/L (135-145); Triglycerides 69 mg/dL
--- NOTE | 2022-03-31 14:25 | MHC.CM.PN ---
EMR Review- Diet has been advanced to [place]. Patient tolerating; however, oral intake still sub-optimal. TPN continued, patient will be monitored closely for oral intake. Discharge plan continues to be Rehab facility. CM will continue to follow for D/C needs.
--- NOTE | 2022-03-31 14:29 | MHC.CM.PN ---
CM met with patient as she and Nora requested update on SNFS. Nora no longer visiting; however patient was updated. She was informed [facility] not accommodate, [facility], [facility] following. Patient shared she knew about [facility] and would rather go to [facility] then [facility] as it would be a long drive for family. Patient not receptive to broad SNF search at this time. Patient reports she will let Nora know of our conversation.
[2022-03-31] MEDS: Magnesium Hydrox/Alum Hydrox 30 ML ORAL.SUSP 15 ML PO (17:35)
[2022-03-31] MEDS: ondansetron HCL 4 MG/2 ML VIAL IVPUSH (21:07)
[2022-03-31] MEDS: diphenhydrAMINE HCL 50 MG/ML VIAL 25 MG IVPUSH (21:07)
[2022-04-01] MEDS: Magnesium Hydrox/Alum Hydrox 30 ML ORAL.SUSP 15 ML PO (00:01)
[2022-04-01] MEDS: HYDROmorphone HCl 0.5 MG/0.5 ML SYRINGE 0.25 MG IVPUSH ×2 (00:09→21:16)
[2022-04-01 02:56] VITALS: BP 111/56; PULSE 101; RESP 18; TEMP 36.3; O2SAT 94
[2022-04-01 07:46] VITALS: BP 121/56; PULSE 101; RESP 18; TEMP 36.4; O2SAT 95
--- NOTE | 2022-04-01 08:06 | PM.PNGS ---
Subjective Subjective Date of Service: 04/01/22 Interval history: Patient reports having difficulty sleeping, requesting Lea kaplan for sleep. She reports eating small amount yesterday and tolerating it well. She was out of bed for several hours in felt comfortable. She is still feeling fairly weak Physical Exam Vital Signs: Vital Signs: Last Vital Signs Temp 97.5 F 04/01/22 07:46 Pulse 101 H 04/01/22 07:46 Resp 18 04/01/22 07:46 BP 121/56 L 04/01/22 07:46 Pulse Ox 95 04/01/22 07:46 O2 Del Method 04/01/22 07:46 O2 Flow Rate 0.3 04/01/22 07:46 Oxygen Flow Rate 3 03/19/22 14:24 BMI result Body Mass Index 22.6 Const: General: no acute distress, alert and awake Nutritional Appearance: average body habitus Orientation/consciousness: patient oriented x3 Resp: Effort & Inspection: normal respiratory effort, no audible wheezes and no cough GI: Other: Ostomy pain in functioning. Incision in the midline is clean and intact without redness or discharge. Neuro: General: patient oriented x3 Extrem: Other: Pedal edema Objective Data Active Medications Al Hydroxide/Mg Hydroxide (Magnesium Hydrox/Alum Hydrox 30 Ml Oral.Susp) 15 ml PO TID PRN PRN Reason: Heartburn Last Admin: 04/01/22 00:01 Dose: 15 ml Documented By: MARYILRitika Hydromorphone HCl (Hydromorphone Hcl 0.5 Mg/0.5 Ml Syringe) 0.25 mg IVPUSH Q3H PRN; Protocol PRN Reason: Pain, Severe (Pain Scale 7-10) Last Admin: 04/01/22 00:09 Dose: 0.25 mg Documented By: MARYILRitika Potassium Chloride 34 meq/Sodium Chloride 20 meq/Magnesium Sulfate 10 meq/Potassium Phosphate 30 mmol/Calcium Gluconate 9.3 meq/Multivitamins 14 ml/ Trace Metals 1.4 ml/ Amino Acids/Dextrose 1,440 mls @ 60 mls/hr IV DAILY@1800 [facility] Stop: 04/01/22 17:59 Last Admin: 03/31/22 17:47 Dose: 60 mls/hr Documented By: ADITYA Lidocaine (Lidocaine 4 % Patch Adh..Patch) 1 patch TRANSDERMA DAILY [facility]; Protocol Last Admin: 03/31/22 10:05 Dose: Not Given Documented By: ADITYA Non-Admin Reason: Patient Refused Ondansetron HCl (Ondansetron Hcl 4 Mg/2 Ml Vial) 4 mg IVPUSH Q8H PRN PRN Reason: Nausea Last Admin: 03/31/22 21:07 Dose: 4 mg Documented By: LILY Pharmacy Consult (Consult Rx Perform Med Rec) 1 each MISCELLANE ONCE PRN PRN Reason: Consult order Zolpidem Tartrate (Zolpidem Tartrate 5 Mg Tablet) 5 mg PO BEDTIME PRN PRN Reason: Insomnia Labs CBC & Chem 7: 03/30/22 09:33 03/31/22 12:01 Labs: Laboratory Results - last 24 hr 03/31/22 12:01 Anion Gap 14 Estim Creat Clear Calc 64.0 Estimated GFR > 60 Random Glucose 95 Calcium 8.6 Phosphorus 4.4 Magnesium 2.0 Albumin 3.1 L Triglycerides 69 Procedures Date of Service Date of Service: 04/01/22 Progress Note: A&P Assessment and plan (1) Postoperative ileus: Status: Acute Assessment and Plan: Patient continues to tolerate oral intake without nausea or vomiting. Her intake is still low, therefore TPN should continue at current rate and formula. Will recheck labs in a.m. Restart Ambien p.r.n. sleep Encouraged out of bed. Plan for discharge to rehab once tolerating p.o. well. Time Spent With Patient Time: Total time spent is greater than 50% in coordination of care (as documented) at patient's floor/unit and/or counseling patient: Quality Stroke Does the patient have a stroke diagnosis?: No VTE Prior VTE?: No VTE Risk Level:: Medical - moderate - high VTE Device Contraindication: N/A - Device Ordered VTE Drug Contraindication: N/A - Med Ordered
[2022-04-01 08:16] LABS: Anion Gap 11 (12-20); Blood Urea Nitrogen 25 mg/dL (9-16); Calcium 8.6 mg/dL (8.4-10.2); Carbon Dioxide 24 mmol/L (22-29); Chloride 108 mmol/L (96-108); Creatinine Clr Calc Pharmacy 63.1; Estimated Glomerular Filt Rate > 60; Glucose Random 110 mg/dL (60-115); Potassium 4.7 mmol/L (3.3-5.1); Sodium 138 mmol/L (135-145)
[2022-04-01 09:40] LABS: Phosphorus 4.2 mg/dL (2.7-4.5)
[2022-04-01 11:47] VITALS: BP 129/60; PULSE 101; RESP 18; TEMP 36.4; O2SAT 97
[2022-04-01] MEDS: Acetaminophen 325 MG TABLET 650 MG PO (14:28)
[2022-04-01] MEDS: Omeprazole 20 MG CAPSULE.DR PO (14:28)
[2022-04-01] MEDS: Lidocaine 4 % Patch ADH..PATCH 1 PATCH TRANSDERMA (14:29)
[2022-04-01 16:00] VITALS: BP 134/75; PULSE 98; RESP 18; TEMP 36.6; O2SAT 96
[2022-04-01] MEDS: Fat Emulsions 20% 250 ML 25 ML IV (18:13)
[2022-04-01 20:07] VITALS: BP 125/60; PULSE 94; RESP 16; TEMP 36; O2SAT 98
[2022-04-01] MEDS: Zolpidem Tartrate 5 MG TABLET PO (21:17)
[2022-04-02] VITALS (7 sets, daily range): BP systolic 107–132; BP diastolic 51–61; PULSE 94–108; RESP 16–20; TEMP 36–36.3; O2SAT 95–99
[2022-04-02] MEDS: Fat Emulsions 20% 250 ML 25 ML IV ×2 (00:37→18:01)
[2022-04-02] MEDS: Omeprazole 20 MG CAPSULE.DR PO (05:23)
[2022-04-02 06:42] LABS: Anion Gap 12 (12-20); Blood Urea Nitrogen 24 mg/dL (9-16); Calcium 8.7 mg/dL (8.4-10.2); Carbon Dioxide 22 mmol/L (22-29); Chloride 107 mmol/L (96-108); Creatinine Clr Calc Pharmacy 65.1; Estimated Glomerular Filt Rate > 60; Glucose Random 106 mg/dL (60-115); Potassium 4.7 mmol/L (3.3-5.1); Sodium 136 mmol/L (135-145)
[2022-04-02 06:43] LABS: Hematocrit 24.2 % (37.0-47.0); Hemoglobin 7.4 g/dl (12.0-16.0); Mean Corpuscular HGB Conc 30.6 g/dl (31.0-35.0); Mean Corpuscular Hemoglobin 25.1 pg (27.0-33.0); Mean Platelet Volume 11.5 fL (9.4-12.3); Platelet Count 365 X10*3/uL (160-400); Red Blood Count 2.95 X10*6/uL (4.20-5.50); Red Cell Distribution Width 17.3 % (11.0-16.0); White Blood Count 10.1 X10*3/uL (4.8-10.8)
[2022-04-02 06:59] LABS: Magnesium 1.9 mg/dL (1.6-2.6)
--- NOTE | 2022-04-02 08:06 | PM.PNGS ---
Subjective Subjective Date of Service: 04/02/22 Interval history: patient is more comfortable this morning reporting good night of sleep. She continues to take only a small amount of food but denies nausea or vomiting. Reports having small bowel movements per ostomy. Physical Exam Vital Signs: Vital Signs: Last Vital Signs Temp 96.9 F 04/02/22 08:00 Pulse 108 H 04/02/22 08:00 Resp 20 04/02/22 08:00 BP 107/51 L 04/02/22 08:00 Pulse Ox 96 04/02/22 08:00 O2 Del Method 04/02/22 08:00 O2 Flow Rate 3 04/02/22 08:00 Oxygen Flow Rate 3 03/19/22 14:24 BMI result Body Mass Index 22.6 Const: General: no acute distress, alert and awake Nutritional Appearance: average body habitus Orientation/consciousness: patient oriented x3 Resp: Effort & Inspection: normal respiratory effort, no audible wheezes and no cough GI: Other: Ostomy pain in functioning. Incision in the midline is clean and intact without redness or discharge. Palpation (GI): Soft to palpation, no guarding and not rigid Percussion: Yes normal to percussion Neuro: General: patient oriented x3 Extrem: Other: Pedal edema Objective Data Active Medications Acetaminophen (Acetaminophen 325 Mg Tablet) 650 mg PO QID PRN PRN Reason: headache, temp > 101 Last Admin: 04/01/22 14:28 Dose: 650 mg Documented By: JEET Al Hydroxide/Mg Hydroxide (Magnesium Hydrox/Alum Hydrox 30 Ml Oral.Susp) 15 ml PO TID PRN PRN Reason: Heartburn Last Admin: 04/01/22 00:01 Dose: 15 ml Documented By: LILY Hydromorphone HCl (Hydromorphone Hcl 0.5 Mg/0.5 Ml Syringe) 0.25 mg IVPUSH Q3H PRN; Protocol PRN Reason: Pain, Severe (Pain Scale 7-10) Last Admin: 04/01/22 21:16 Dose: 0.25 mg Documented By: BRIANNE Potassium Chloride 34 meq/Sodium Chloride 20 meq/Magnesium Sulfate 10 meq/Potassium Phosphate 30 mmol/Calcium Gluconate 9.3 meq/Multivitamins 14 ml/ Trace Metals 1.4 ml/ Amino Acids/Dextrose 1,440 mls @ 60 mls/hr IV DAILY@1800 [facility] Stop: 04/02/22 17:59 Last Admin: 04/01/22 18:13 Dose: 60 mls/hr Documented By: ROMI Lidocaine (Lidocaine 4 % Patch Adh..Patch) 1 patch TRANSDERMA DAILY [facility]; Protocol Last Admin: 04/01/22 09:02 Dose: Not Given Documented By: ROMI Non-Admin Reason: Patient Refused Omeprazole (Omeprazole 20 Mg Capsule.) 20 mg PO DAILY@0630 [facility] Last Admin: 04/02/22 05:23 Dose: 20 mg Documented By: BRIANNE Ondansetron HCl (Ondansetron Hcl 4 Mg/2 Ml Vial) 4 mg IVPUSH Q8H PRN PRN Reason: Nausea Last Admin: 03/31/22 21:07 Dose: 4 mg Documented By: LILY Pharmacy Consult (Consult Rx Perform Med Rec) 1 each MISCELLANE ONCE PRN PRN Reason: Consult order Zolpidem Tartrate (Zolpidem Tartrate 5 Mg Tablet) 5 mg PO BEDTIME PRN PRN Reason: Insomnia Last Admin: 04/01/22 21:17 Dose: 5 mg Documented By: BRIANNE Labs CBC & Chem 7: 04/02/22 05:50 04/02/22 05:50 Labs: Laboratory Results - last 24 hr 04/01/22 04/02/22 04/02/22 07:30 05:50 05:50 MCV 82.0 MCH 25.1 L MCHC 30.6 L RDW 17.3 H Plt Count 365 MPV 11.5 Absolute Nucleated RBC 0.000 Nucleated RBC % (auto) 0.0 Anion Gap 11 L 12 Estim Creat Clear Calc 63.1 65.1 Estimated GFR > 60 > 60 Random Glucose 110 106 Calcium 8.6 8.7 Phosphorus 4.2 4.0 Magnesium 2.0 1.9 Procedures Date of Service Date of Service: 04/02/22 Progress Note: A&P Assessment and plan (1) Postoperative ileus: Status: Acute Assessment and Plan: Patient continues to tolerate Small amountsoral intake without nausea or vomiting. Her intake is still low, therefore I will continue the TPN. A.m. labs reveal a slow decline in the H&H. Electrolytes are okay. Encouraged out of bed. Plan for discharge to rehab once tolerating p.o. well. Time Spent With Patient Time: Total time spent is greater than 50% in coordination of care (as documented) at patient's floor/unit and/or counseling patient: Quality Stroke Does the patient have a stroke diagnosis?: No VTE Prior VTE?: No VTE Risk Level:: Medical - moderate - high VTE Device Contraindication: N/A - Device Ordered VTE Drug Contraindication: N/A - Med Ordered
[2022-04-02] MEDS: Lidocaine 4 % Patch ADH..PATCH 1 PATCH TRANSDERMA (11:48)
[2022-04-02] MEDS: HYDROmorphone HCl 0.5 MG/0.5 ML SYRINGE 0.25 MG IVPUSH (21:32)
[2022-04-02] MEDS: Zolpidem Tartrate 5 MG TABLET PO (21:32)
[2022-04-03] VITALS (10 sets, daily range): BP systolic 106–133; BP diastolic 51–80; PULSE 97–107; RESP 16–18; TEMP 36.2–36.8; O2SAT 92–99
[2022-04-03] MEDS: Fat Emulsions 20% 250 ML 25 ML IV (00:42)
[2022-04-03] MEDS: Omeprazole 20 MG CAPSULE.DR PO (05:49)
--- NOTE | 2022-04-03 07:53 | P.PNGS_ITS ---
Subjective Subjective Date of Service: 04/06/22 Interval history: says she is ok tolerating diet appetite remains marginal Physical Exam Vital Signs: Vital Signs: Last Vital Signs Temp 97.2 F 04/03/22 07:27 Pulse 102 H 04/03/22 07:27 Resp 18 04/03/22 07:27 BP 127/60 04/03/22 07:27 Pulse Ox 97 04/03/22 07:27 O2 Del Method 04/03/22 07:27 O2 Flow Rate 4 04/03/22 07:27 Oxygen Flow Rate 3 03/19/22 14:24 BMI result Body Mass Index 22.6 Const: General: comfortable and no acute distress Resp: Effort & Inspection: normal respiratory effort Cardio: Rate: regular rate GI: Other: stoma functioning Palpation (GI): Soft to palpation, not firm and no guarding Objective Data Active Medications Acetaminophen (Acetaminophen 325 Mg Tablet) 650 mg PO QID PRN PRN Reason: headache, temp > 101 Last Admin: 04/01/22 14:28 Dose: 650 mg Documented By: JEET Al Hydroxide/Mg Hydroxide (Magnesium Hydrox/Alum Hydrox 30 Ml Oral.Susp) 15 ml PO TID PRN PRN Reason: Heartburn Last Admin: 04/01/22 00:01 Dose: 15 ml Documented By: CASTILRitika Hydromorphone HCl (Hydromorphone Hcl 0.5 Mg/0.5 Ml Syringe) 0.25 mg IVPUSH Q3H PRN; Protocol PRN Reason: Pain, Severe (Pain Scale 7-10) Last Admin: 04/02/22 21:32 Dose: 0.25 mg Documented By: MAURICIO Potassium Chloride 34 meq/Sodium Chloride 20 meq/Magnesium Sulfate 10 meq/Potassium Phosphate 30 mmol/Calcium Gluconate 9.3 meq/Multivitamins 14 ml/ Trace Metals 1.4 ml/ Amino Acids/Dextrose 1,440 mls @ 60 mls/hr IV DAILY@1800 [facility] Stop: 04/03/22 17:59 Last Admin: 04/02/22 18:01 Dose: 60 mls/hr Documented By: ROMI Lidocaine (Lidocaine 4 % Patch Adh..Patch) 1 patch TRANSDERMA DAILY [facility]; Protocol Last Admin: 04/02/22 11:48 Dose: 1 patch Documented By: ROMI Omeprazole (Omeprazole 20 Mg Capsule.) 20 mg PO DAILY@0630 [facility] Last Admin: 04/03/22 05:49 Dose: 20 mg Documented By: MAURICIO Ondansetron HCl (Ondansetron Hcl 4 Mg/2 Ml Vial) 4 mg IVPUSH Q8H PRN PRN Reason: Nausea Last Admin: 03/31/22 21:07 Dose: 4 mg Documented By: LILY Pharmacy Consult (Consult Rx Perform Med Rec) 1 each MISCELLANE ONCE PRN PRN Reason: Consult order Zolpidem Tartrate (Zolpidem Tartrate 5 Mg Tablet) 5 mg PO BEDTIME PRN PRN Reason: Insomnia Last Admin: 04/02/22 21:32 Dose: 5 mg Documented By: MAURICIO Labs CBC & Chem 7: 04/04/22 13:30 04/06/22 05:41 Procedures Date of Service Date of Service: 04/03/22 Progress Note: A&P Assessment and plan (1) Postoperative ileus: Status: Acute Assessment and Plan: plan to stop TPN today push PO intake OOB to chair/PT Hg still low - transfuse?; likely multifactorial no obvious GI bleed doing well overall Time Spent With Patient Time: Total time spent is greater than 50% in coordination of care (as documented) at patient's floor/unit and/or counseling patient: Quality Stroke Does the patient have a stroke diagnosis?: No VTE Prior VTE?: No VTE Risk Level:: Medical - moderate - high VTE Device Contraindication: N/A - Device Ordered VTE Drug Contraindication: N/A - Med Ordered
[2022-04-03 08:32] LABS: Hematocrit 24.6 % (37.0-47.0); Hemoglobin 7.7 g/dl (12.0-16.0); Mean Corpuscular HGB Conc 31.3 g/dl (31.0-35.0); Mean Corpuscular Hemoglobin 25.3 pg (27.0-33.0); Mean Corpuscular Volume 80.9 fL (80.0-98.0); Platelet Count 360 X10*3/uL (160-400); Red Blood Count 3.04 X10*6/uL (4.20-5.50); Red Cell Distribution Width 17.4 % (11.0-16.0); White Blood Count 9.6 X10*3/uL (4.8-10.8)
[2022-04-03 09:09] LABS: Anion Gap 13 (12-20); Blood Urea Nitrogen 29 mg/dL (9-16); Calcium 8.9 mg/dL (8.4-10.2); Carbon Dioxide 21 mmol/L (22-29); Chloride 107 mmol/L (96-108); Estimated Glomerular Filt Rate > 60; Glucose Random 117 mg/dL (60-115); Iron 30 mcg/dL (30-160); Magnesium 1.9 mg/dL (1.6-2.6); Percent Iron Saturation 10 % (15-50); Phosphorus 4.4 mg/dL (2.7-4.5); Sodium 136 mmol/L (135-145); Total Iron Binding Capacity 302 mcg/dL (228-428); Unsaturated Iron Binding 272 ug/dL
[2022-04-03] MEDS: Lidocaine 4 % Patch ADH..PATCH 1 PATCH TRANSDERMA (09:09)
--- NOTE | 2022-04-03 09:18 | HO.PM.IMPN ---
Subjective Subjective Date of Service: 04/03/22 Interval History: asked to see patient re: low h/h pt seen and examined. overall she is slowly feeling better feels weak still but abdominal symptoms improved denies any chest pain / shortness of breath Review of Systems negative except HPI Physical Exam Vital Signs: Vital Signs: Last Vital Signs Temp 97.2 F 04/03/22 07:27 Pulse 102 H 04/03/22 07:27 Resp 18 04/03/22 07:27 BP 127/60 04/03/22 07:27 Pulse Ox 97 04/03/22 07:27 O2 Del Method 04/03/22 07:27 O2 Flow Rate 4 04/03/22 07:27 Oxygen Flow Rate 3 03/19/22 14:24 BMI result Body Mass Index 22.6 Const: Other: General - no acute distress, appears comfortable Cardiovascular - regular rate and rhythm, S1-S2 Lungs - normal respiratory effort, clear to auscultation bilaterally, no wheezing Abdomen - soft, nontender, no rebound or guarding Extremities - no edema bilaterally Neuro - awake and alert, no focal deficits Objective Data Active Medications Acetaminophen (Acetaminophen 325 Mg Tablet) 650 mg PO QID PRN PRN Reason: headache, temp > 101 Last Admin: 04/01/22 14:28 Dose: 650 mg Documented By: JEET Al Hydroxide/Mg Hydroxide (Magnesium Hydrox/Alum Hydrox 30 Ml Oral.Susp) 15 ml PO TID PRN PRN Reason: Heartburn Last Admin: 04/01/22 00:01 Dose: 15 ml Documented By: LILY Ferrous Sulfate (Ferrous Sulfate 324 Mg Tablet.Dr) 324 mg PO DAILY [facility] Furosemide (Furosemide 40 Mg Tablet) 40 mg PO DAILY [facility]; Protocol Hydromorphone HCl (Hydromorphone Hcl 0.5 Mg/0.5 Ml Syringe) 0.25 mg IVPUSH Q3H PRN; Protocol PRN Reason: Pain, Severe (Pain Scale 7-10) Last Admin: 04/02/22 21:32 Dose: 0.25 mg Documented By: MAURICIO Potassium Chloride 34 meq/Sodium Chloride 20 meq/Magnesium Sulfate 10 meq/Potassium Phosphate 30 mmol/Calcium Gluconate 9.3 meq/Multivitamins 14 ml/ Trace Metals 1.4 ml/ Amino Acids/Dextrose 1,440 mls @ 60 mls/hr IV DAILY@1800 [facility] Stop: 04/03/22 17:59 Last Admin: 04/02/22 18:01 Dose: 60 mls/hr Documented By: ROMI Lidocaine (Lidocaine 4 % Patch Adh..Patch) 1 patch TRANSDERMA DAILY [facility]; Protocol Last Admin: 04/03/22 09:09 Dose: 1 patch Documented By: FLORY Omeprazole (Omeprazole 20 Mg Capsule.Dr) 20 mg PO DAILY@0630 [facility] Last Admin: 04/03/22 05:49 Dose: 20 mg Documented By: MAURICIO Ondansetron HCl (Ondansetron Hcl 4 Mg/2 Ml Vial) 4 mg IVPUSH Q8H PRN PRN Reason: Nausea Last Admin: 03/31/22 21:07 Dose: 4 mg Documented By: LILY Pharmacy Consult (Consult Rx Perform Med Rec) 1 each MISCELLANE ONCE PRN PRN Reason: Consult order Zolpidem Tartrate (Zolpidem Tartrate 5 Mg Tablet) 5 mg PO BEDTIME PRN PRN Reason: Insomnia Last Admin: 04/02/22 21:32 Dose: 5 mg Documented By: MAURICIO Labs CBC & Chem 7: 04/03/22 08:18 04/03/22 08:18 Labs: Laboratory Results - last 24 hr 04/03/22 04/03/22 04/03/22 08:18 08:18 08:18 MCV 80.9 MCH 25.3 L MCHC 31.3 RDW 17.4 H Plt Count 360 MPV 11.0 Absolute Nucleated RBC 0.000 Nucleated RBC % (auto) 0.0 Anion Gap 13 Estim Creat Clear Calc 64.0 Estimated GFR > 60 Random Glucose 117 H Calcium 8.9 Phosphorus 4.4 Magnesium 1.9 Iron 30 TIBC 302 % Saturation 10 L Unsat Iron Binding 272 Assessment and Plan (1) Anemia: Status: Acute Plan This is an 81 year old who was [place] [facility] [place] where she was treated and diagnosed with colon cancer. Her hospital course was complicated by bacteremia and congestive heart failure exacerbation. He was discharged on 03/16/2022 and now returns on 03/19 with abdominal symptoms. Her CT imaging reveals a small bowel obstruction versus ileus with possible abscess. She is admitted under the [facility]. Medical consult requested for comanagement. 1. Anemia no evidence of tati bleeding is on iron / b12 supplements anemia is likely multifactorial includine ALEJANDRO + acute illness given history of copd/chf -- pt may benefit from 1 unit of blood; d/w Dr. Cortez -- he is in agreement d/w in the patient re: risk and benefits of PRBC transfusion -- she states that she has transfusion in the past 2. History of HFpEF not in exacerbation PO lasix on hold due to NPO status previously -- now started on diet will restart lasix 40mg daily 3. history of COPD no on any inhalers at baseline line ?? PRN albuterol if needed wean O2 -- decreased to 2L this AM 4. Post op ileus mgmt per gen surg Will follow along. Quality Stroke Does the patient have a stroke diagnosis?: No VTE Prior VTE?: No VTE Risk Level:: Medical - moderate - high VTE Device Contraindication: N/A - Device Ordered VTE Drug Contraindication: N/A - Med Ordered
[2022-04-03] MEDS: Ferrous Sulfate 324 MG TABLET.DR PO (09:38)
[2022-04-03 09:51] LABS: Folate 10.7 ng/mL (> or = 4.0); Vitamin B12 661 pg/mL (200-900)
[2022-04-03 10:04] LABS: Ferritin 54 ng/mL (10-250)
--- NOTE | 2022-04-03 11:57 | MHC.CLN ---
F/U DIET ADVANCED TO BLAND ON 03/30. APPEARS TO BE TOLERATING DIET. PER MD NOTE, DISCONTINUE TPN TODAY 04/03. MONITOR PO INTAKE AND TOLERANCE CLOSELY.
[2022-04-03] MEDS: HYDROmorphone HCl 0.5 MG/0.5 ML SYRINGE 0.25 MG IVPUSH ×2 (14:06→21:26)
--- NOTE | 2022-04-03 14:12 | MHC.CM.PN ---
EMR Review, patient is not yet medically cleared for discharge today r/t TPN being discharged today and advancement to PO intake; close monitoring of PO intake and tolerance. D/C plan continues to be SNF. CM will continue to follow for D/C needs.
[2022-04-03] MEDS: Zolpidem Tartrate 5 MG TABLET PO (21:26)
[2022-04-04] VITALS (7 sets, daily range): BP systolic 107–123; BP diastolic 52–66; PULSE 103–108; RESP 16–18; TEMP 36–37; O2SAT 92–97
[2022-04-04] MEDS: Omeprazole 20 MG CAPSULE.DR PO (05:37)
[2022-04-04 06:40] LABS: Anion Gap 13 (12-20); Blood Urea Nitrogen 29 mg/dL (9-16); Calcium 8.9 mg/dL (8.4-10.2); Carbon Dioxide 20 mmol/L (22-29); Chloride 107 mmol/L (96-108); Creatinine Clr Calc Pharmacy 66.1; Estimated Glomerular Filt Rate > 60; Glucose Random 84 mg/dL (60-115); Potassium 4.4 mmol/L (3.3-5.1); Sodium 136 mmol/L (135-145)
--- NOTE | 2022-04-04 07:25 | P.PNGS_ITS ---
Subjective Subjective Date of Service: 04/06/22 Interval history: denies complaints says she is 'OK says her oral intake is better stoma functioning well Physical Exam Vital Signs: Vital Signs: Last Vital Signs Temp 96.8 F 04/04/22 03:19 Pulse 105 H 04/04/22 03:19 Resp 16 04/04/22 03:19 BP 107/52 L 04/04/22 03:19 Pulse Ox 92 04/04/22 03:19 O2 Del Method 04/04/22 03:19 O2 Flow Rate 0.5 04/03/22 15:12 Oxygen Flow Rate 3 03/19/22 14:24 BMI result Body Mass Index 22.6 Const: Other: frail looking General: no acute distress Resp: Effort & Inspection: normal respiratory effort Cardio: Rhythm: regular rhythm GI: Other: stoma with good output Palpation (GI): Soft to palpation and no guarding Objective Data Active Medications Acetaminophen (Acetaminophen 325 Mg Tablet) 650 mg PO QID PRN PRN Reason: headache, temp > 101 Last Admin: 04/01/22 14:28 Dose: 650 mg Documented By: JEET Al Hydroxide/Mg Hydroxide (Magnesium Hydrox/Alum Hydrox 30 Ml Oral.Susp) 15 ml PO TID PRN PRN Reason: Heartburn Last Admin: 04/01/22 00:01 Dose: 15 ml Documented By: LILY Ferrous Sulfate (Ferrous Sulfate 324 Mg Tablet.) 324 mg PO DAILY [facility] Last Admin: 04/03/22 09:38 Dose: 324 mg Documented By: FLORY Furosemide (Furosemide 40 Mg Tablet) 40 mg PO DAILY [facility]; Protocol Hydromorphone HCl (Hydromorphone Hcl 0.5 Mg/0.5 Ml Syringe) 0.25 mg IVPUSH Q3H PRN; Protocol PRN Reason: Pain, Severe (Pain Scale 7-10) Last Admin: 04/03/22 21:26 Dose: 0.25 mg Documented By: MAURICIO Lidocaine (Lidocaine 4 % Patch Adh..Patch) 1 patch TRANSDERMA DAILY [facility]; Protocol Last Admin: 04/03/22 09:09 Dose: 1 patch Documented By: FLORY Omeprazole (Omeprazole 20 Mg Capsule.) 20 mg PO DAILY@0630 [facility] Last Admin: 04/04/22 05:37 Dose: 20 mg Documented By: MAURICIO Ondansetron HCl (Ondansetron Hcl 4 Mg/2 Ml Vial) 4 mg IVPUSH Q8H PRN PRN Reason: Nausea Last Admin: 03/31/22 21:07 Dose: 4 mg Documented By: LILY Pharmacy Consult (Consult Rx Perform Med Rec) 1 each MISCELLANE ONCE PRN PRN Reason: Consult order Zolpidem Tartrate (Zolpidem Tartrate 5 Mg Tablet) 5 mg PO BEDTIME PRN PRN Reason: Insomnia Last Admin: 04/03/22 21:26 Dose: 5 mg Documented By: MAURICIO Labs CBC & Chem 7: 04/04/22 13:30 04/06/22 05:41 Labs: Laboratory Results - last 24 hr 04/03/22 04/03/22 04/03/22 08:18 08:18 08:18 MCV 80.9 MCH 25.3 L MCHC 31.3 RDW 17.4 H Plt Count 360 MPV 11.0 Absolute Nucleated RBC 0.000 Nucleated RBC % (auto) 0.0 Anion Gap 13 Estim Creat Clear Calc 64.0 Estimated GFR > 60 Random Glucose 117 H Calcium 8.9 Phosphorus 4.4 Magnesium 1.9 Iron 30 TIBC 302 % Saturation 10 L Unsat Iron Binding 272 Ferritin 54 Vitamin B12 Folate Blood Type Antibody Screen Antibody Identification Crossmatch Crossmatch ([facility]) 04/03/22 04/03/22 04/04/22 08:18 10:47 05:18 MCV MCH MCHC RDW Plt Count MPV Absolute Nucleated RBC Nucleated RBC % (auto) Anion Gap 13 Estim Creat Clear Calc 66.1 Estimated GFR > 60 Random Glucose 84 Calcium 8.9 Phosphorus Magnesium Iron TIBC % Saturation Unsat Iron Binding Ferritin Vitamin B12 661 Folate 10.7 Blood Type O Positive Antibody Screen POSITIVE Antibody Identification Anti-Fya Crossmatch See Detail Crossmatch ([facility]) See Detail Procedures Date of Service Date of Service: 04/04/22 Progress Note: A&P Assessment and plan (1) Postoperative ileus: Status: Acute Assessment and Plan: tolerating diet transfused 1 unit yesterday stoma functioning OOB, PT Nora HCP updated Time Spent With Patient Time: Total time spent is greater than 50% in coordination of care (as documented) at patient's floor/unit and/or counseling patient: Quality Stroke Does the patient have a stroke diagnosis?: No VTE Prior VTE?: No VTE Risk Level:: Medical - moderate - high VTE Device Contraindication: N/A - Device Ordered VTE Drug Contraindication: N/A - Med Ordered
[2022-04-04] MEDS: Lidocaine 4 % Patch ADH..PATCH 1 PATCH TRANSDERMA (09:02)
[2022-04-04] MEDS: Furosemide 40 MG TABLET PO (09:02)
[2022-04-04] MEDS: Ferrous Sulfate 324 MG TABLET.DR PO (09:02)
[2022-04-04] MEDS: Acetaminophen 325 MG TABLET 650 MG PO (09:17)
--- NOTE | 2022-04-04 12:20 | P.PNIM_ITS ---
Subjective Subjective Date of Service: 04/04/22 Interval History: f/u on anemia, transfused yesterday interval history: feels better Review of Systems no change from last hospitalist note Physical Exam Vital Signs: Vital Signs: Last Vital Signs Temp 97.4 F 04/04/22 11:20 Pulse 103 H 04/04/22 11:58 Resp 18 04/04/22 11:20 BP 115/65 04/04/22 11:58 Pulse Ox 97 04/04/22 11:58 O2 Del Method 04/04/22 11:20 O2 Flow Rate 0.5 04/03/22 15:12 Oxygen Flow Rate 3 03/19/22 14:24 BMI result Body Mass Index 22.6 Const: Other: General - no acute distress, appears comfortable Cardiovascular - regular rate and rhythm, S1-S2 Lungs - normal respiratory effort, clear to auscultation bilaterally, no wheezing Abdomen - soft, nontender, no rebound or guarding Extremities - no edema bilaterally Neuro - awake and alert, no focal deficits Objective Data Active Medications Acetaminophen (Acetaminophen 325 Mg Tablet) 650 mg PO QID PRN PRN Reason: headache, temp > 101 Last Admin: 04/04/22 09:17 Dose: 650 mg Documented By: FLORY Al Hydroxide/Mg Hydroxide (Magnesium Hydrox/Alum Hydrox 30 Ml Oral.Susp) 15 ml PO TID PRN PRN Reason: Heartburn Last Admin: 04/01/22 00:01 Dose: 15 ml Documented By: LILY Ferrous Sulfate (Ferrous Sulfate 324 Mg Tablet.) 324 mg PO DAILY DEVORAH Last Admin: 04/04/22 09:02 Dose: 324 mg Documented By: FLORY Furosemide (Furosemide 40 Mg Tablet) 40 mg PO DAILY [facility]; Protocol Last Admin: 04/04/22 09:02 Dose: 40 mg Documented By: FLORY Hydromorphone HCl (Hydromorphone Hcl 0.5 Mg/0.5 Ml Syringe) 0.25 mg IVPUSH Q3H PRN; Protocol PRN Reason: Pain, Severe (Pain Scale 7-10) Last Admin: 04/03/22 21:26 Dose: 0.25 mg Documented By: MAURICIO Lidocaine (Lidocaine 4 % Patch Adh..Patch) 1 patch TRANSDERMA DAILY [facility]; Protocol Last Admin: 04/04/22 09:02 Dose: 1 patch Documented By: FLORY Omeprazole (Omeprazole 20 Mg Jay.) 20 mg PO DAILY@0630 [facility] Last Admin: 04/04/22 05:37 Dose: 20 mg Documented By: MAURICIO Ondansetron HCl (Ondansetron Hcl 4 Mg/2 Ml Vial) 4 mg IVPUSH Q8H PRN PRN Reason: Nausea Last Admin: 03/31/22 21:07 Dose: 4 mg Documented By: LILY Pharmacy Consult (Consult Rx Perform Med Rec) 1 each MISCELLANE ONCE PRN PRN Reason: Consult order Zolpidem Tartrate (Zolpidem Tartrate 5 Mg Tablet) 5 mg PO BEDTIME PRN PRN Reason: Insomnia Last Admin: 04/03/22 21:26 Dose: 5 mg Documented By: MAURICIO Labs CBC & Chem 7: 04/03/22 08:18 04/04/22 05:18 Labs: Laboratory Results - last 24 hr 04/03/22 04/04/22 10:47 05:18 Anion Gap 13 Estim Creat Clear Calc 66.1 Estimated GFR > 60 Random Glucose 84 Calcium 8.9 Blood Type O Positive Antibody Screen POSITIVE Antibody Identification Anti-Fya Antigen Identification Fya Antigen - NEGATIVE Crossmatch See Detail Crossmatch (AHG) See Detail Assessment and Plan (1) Anemia: Status: Acute Plan 81 year old who was admitted to [facility] from 03/07-03/16 where she was treated and diagnosed with colon cancer. Her hospital course was complicated by bacteremia and congestive heart failure exacerbation. He was discharged on 03/16/2022 and now returns on 03/19 with abdominal symptoms. Her CT imaging reveals a small bowel obstruction versus ileus with possible abscess. She is admitted under the General Surgical Services. Medical consult requested for comanagement. 1. Anemia s/p tranfusion yesterday, follow h/H 2. CHF--not in failure, continue Lasix 3. history of COPD no on any inhalers at baseline line ?? PRN albuterol if needed wean O2 -- decreased to 2L this AM 4. Post op ileus mgmt per gen surg Will follow along. Quality Stroke Does the patient have a stroke diagnosis?: No VTE Prior VTE?: No VTE Risk Level:: Medical - moderate - high VTE Device Contraindication: N/A - Device Ordered VTE Drug Contraindication: N/A - Med Ordered
--- NOTE | 2022-04-04 12:21 | MHC.CM.PN ---
CM MET W/PT AT BEDSIDE AFTER FAMILY HAD LEFT TO DISCUSS DISPO, PT CONFIRMED THAT SHE DOES NOT WANT [facility] EVEN IF BED IS OFFERED BECAUSE SHE DOES NOT HAVE THE FUNDS OR WANT TO PAY THE COPAY THEY ARE NOT CONTRACTED W/[facility], PT REPORTS SHE DOES WANT [facility] FOR STR. ANTIC PT WILL BE ABLE TO D/C BY END OF WEEK, [facility] UPDATED IN [facility].
[2022-04-04] MEDS: HYDROmorphone HCl 0.5 MG/0.5 ML SYRINGE 0.25 MG IVPUSH ×2 (13:41→21:21)
[2022-04-04 13:42] LABS: Hematocrit 28.5 % (37.0-47.0); Hemoglobin 9.1 g/dl (12.0-16.0)
[2022-04-04] MEDS: Zolpidem Tartrate 5 MG TABLET PO (21:23)
[2022-04-05] VITALS (7 sets, daily range): BP systolic 110–130; BP diastolic 57–73; PULSE 95–103; RESP 16–20; TEMP 36.2–37.3; O2SAT 93–96
[2022-04-05] MEDS: Omeprazole 20 MG CAPSULE.DR PO (05:27)
[2022-04-05 06:54] LABS: Anion Gap 15 (12-20); Blood Urea Nitrogen 31 mg/dL (9-16); Carbon Dioxide 23 mmol/L (22-29); Chloride 104 mmol/L (96-108); Creatinine Clr Calc Pharmacy 54.5; Estimated Glomerular Filt Rate > 60; Glucose Random 84 mg/dL (60-115); Potassium 4.3 mmol/L (3.3-5.1); Sodium 138 mmol/L (135-145)
[2022-04-05] MEDS: Furosemide 40 MG TABLET PO (08:13)
[2022-04-05] MEDS: Ferrous Sulfate 324 MG TABLET.DR PO (08:13)
--- NOTE | 2022-04-05 08:24 | PM.PNGS ---
Subjective Subjective Date of Service: 04/05/22 Interval history: Says she is okay Tolerating diet Good stoma function Says she has been doing more with regards to getting out of bed Physical Exam Vital Signs: Vital Signs: Last Vital Signs Temp 97.2 F 04/05/22 07:24 Pulse 96 04/05/22 07:24 Resp 18 04/05/22 07:24 BP 130/62 04/05/22 07:24 Pulse Ox 95 04/05/22 07:24 O2 Del Method 04/05/22 07:24 O2 Flow Rate 0.5 04/03/22 15:12 Oxygen Flow Rate 3 03/19/22 14:24 BMI result Body Mass Index 22.6 Const: Other: Frail looking General: comfortable and no acute distress Resp: Effort & Inspection: normal respiratory effort Cardio: Rate: regular rate GI: Other: Soft, stoma with good output, incision clean and dry Objective Data Active Medications Acetaminophen (Acetaminophen 325 Mg Tablet) 650 mg PO QID PRN PRN Reason: headache, temp > 101 Last Admin: 04/04/22 09:17 Dose: 650 mg Documented By: FLORY Al Hydroxide/Mg Hydroxide (Magnesium Hydrox/Alum Hydrox 30 Ml Oral.Susp) 15 ml PO TID PRN PRN Reason: Heartburn Last Admin: 04/01/22 00:01 Dose: 15 ml Documented By: LILY Ferrous Sulfate (Ferrous Sulfate 324 Mg Tablet.) 324 mg PO DAILY DEVORAH Last Admin: 04/05/22 08:13 Dose: 324 mg Documented By: ALISON Furosemide (Furosemide 40 Mg Tablet) 40 mg PO DAILY [facility]; Protocol Last Admin: 04/05/22 08:13 Dose: 40 mg Documented By: ALISON Hydromorphone HCl (Hydromorphone Hcl 0.5 Mg/0.5 Ml Syringe) 0.25 mg IVPUSH Q3H PRN; Protocol PRN Reason: Pain, Severe (Pain Scale 7-10) Last Admin: 04/04/22 21:21 Dose: 0.25 mg Documented By: TIM Lidocaine (Lidocaine 4 % Patch Adh..Patch) 1 patch TRANSDERMA DAILY [facility]; Protocol Last Admin: 04/04/22 09:02 Dose: 1 patch Documented By: FLORY Omeprazole (Omeprazole 20 Mg Capsule.) 20 mg PO DAILY@0630 [facility]OR[facility] Last Admin: 04/05/22 05:27 Dose: 20 mg Documented By: TIM Ondansetron HCl (Ondansetron Hcl 4 Mg/2 Ml Vial) 4 mg IVPUSH Q8H PRN PRN Reason: Nausea Last Admin: 03/31/22 21:07 Dose: 4 mg Documented By: LILY Pharmacy Consult (Consult Rx Perform Med Rec) 1 each MISCELLANE ONCE PRN PRN Reason: Consult order Zolpidem Tartrate (Zolpidem Tartrate 5 Mg Tablet) 5 mg PO BEDTIME PRN PRN Reason: Insomnia Last Admin: 04/04/22 21:23 Dose: 5 mg Documented By: TIM Labs CBC & Chem 7: 04/04/22 13:30 04/05/22 05:11 Labs: Laboratory Results - last 24 hr 04/03/22 04/05/22 10:47 05:11 Anion Gap 15 Estim Creat Clear Calc 54.5 Estimated GFR > 60 Random Glucose 84 Calcium 9.0 Blood Type O Positive Antibody Screen POSITIVE Antibody Identification Anti-Fya Antigen Identification Fya Antigen - NEGATIVE Crossmatch See Detail Crossmatch (AHG) See Detail Procedures Date of Service Date of Service: 04/05/22 Progress Note: A&P Assessment and plan (1) Postoperative ileus: Status: Acute Assessment and Plan: Much improved Tolerating diet Off TPN Getting out of bed with PT Push p.o. intake Zarco in place for urinary retention - discussed with Discharge planning - field case manager informed Nora (healthcare proxy) updated Hemoglobin with appropriate increase after 1 unit Time Spent With Patient Time: Total time spent is greater than 50% in coordination of care (as documented) at patient's floor/unit and/or counseling patient: Quality Stroke Does the patient have a stroke diagnosis?: No VTE Prior VTE?: No VTE Risk Level:: Medical - moderate - high VTE Device Contraindication: N/A - Device Ordered VTE Drug Contraindication: N/A - Med Ordered
--- NOTE | 2022-04-05 09:32 | MHC.CLN ---
F/U DIET=REGULAR, BLAND. APPEARS TO BE TOLERATING DIET. INTAKE VARIABLE, 25-100%. NO NEW NUTRITION INTERVENTIONS AT THIS TIME. MONITOR PO INTAKE AND TOLERANCE CLOSELY.
[2022-04-05] MEDS: Lidocaine 4 % Patch ADH..PATCH 1 PATCH TRANSDERMA (10:03)
--- NOTE | 2022-04-05 11:45 | HO.PM.IMPN ---
Subjective Subjective Date of Service: 04/05/22 Interval History: f/u on anemia, transfused yesterday interval history: feels better Review of Systems no change from last hospitalist note Physical Exam Vital Signs: Vital Signs: Last Vital Signs Temp 97.2 F 04/05/22 07:24 Pulse 96 04/05/22 07:24 Resp 18 04/05/22 07:24 BP 130/62 04/05/22 07:24 Pulse Ox 95 04/05/22 07:24 O2 Del Method 04/05/22 07:24 O2 Flow Rate 0.5 04/03/22 15:12 Oxygen Flow Rate 3 03/19/22 14:24 BMI result Body Mass Index 22.6 Const: Other: General - no acute distress, appears comfortable Cardiovascular - regular rate and rhythm, S1-S2 Lungs - normal respiratory effort, clear to auscultation bilaterally, no wheezing Abdomen - soft, nontender, no rebound or guarding Extremities - no edema bilaterally Neuro - awake and alert, no focal deficits Objective Data Active Medications Acetaminophen (Acetaminophen 325 Mg Tablet) 650 mg PO QID PRN PRN Reason: headache, temp > 101 Last Admin: 04/04/22 09:17 Dose: 650 mg Documented By: FLORY Al Hydroxide/Mg Hydroxide (Magnesium Hydrox/Alum Hydrox 30 Ml Oral.Susp) 15 ml PO TID PRN PRN Reason: Heartburn Last Admin: 04/01/22 00:01 Dose: 15 ml Documented By: LILY Ferrous Sulfate (Ferrous Sulfate 324 Mg Tablet.) 324 mg PO DAILY DEVORAH Last Admin: 04/05/22 08:13 Dose: 324 mg Documented By: ALISON Furosemide (Furosemide 40 Mg Tablet) 40 mg PO DAILY [facility]OR[facility]; Protocol Last Admin: 04/05/22 08:13 Dose: 40 mg Documented By: ALISON Hydromorphone HCl (Hydromorphone Hcl 0.5 Mg/0.5 Ml Syringe) 0.25 mg IVPUSH Q3H PRN; Protocol PRN Reason: Pain, Severe (Pain Scale 7-10) Last Admin: 04/04/22 21:21 Dose: 0.25 mg Documented By: TIM Lidocaine (Lidocaine 4 % Patch Adh..Patch) 1 patch TRANSDERMA DAILY [facility]; Protocol Last Admin: 04/05/22 10:03 Dose: 1 patch Documented By: ALISON Omeprazole (Omeprazole 20 Mg Capsule.) 20 mg PO DAILY@0630 DEVORAH Last Admin: 04/05/22 05:27 Dose: 20 mg Documented By: TIM Ondansetron HCl (Ondansetron Hcl 4 Mg/2 Ml Vial) 4 mg IVPUSH Q8H PRN PRN Reason: Nausea Last Admin: 03/31/22 21:07 Dose: 4 mg Documented By: LILY Pharmacy Consult (Consult Rx Perform Med Rec) 1 each MISCELLANE ONCE PRN PRN Reason: Consult order Zolpidem Tartrate (Zolpidem Tartrate 5 Mg Tablet) 5 mg PO BEDTIME PRN PRN Reason: Insomnia Last Admin: 04/04/22 21:23 Dose: 5 mg Documented By: TIM Labs CBC & Chem 7: 04/04/22 13:30 04/05/22 05:11 Labs: Laboratory Results - last 24 hr 04/05/22 05:11 Anion Gap 15 Estim Creat Clear Calc 54.5 Estimated GFR > 60 Random Glucose 84 Calcium 9.0 Assessment and Plan (1) Postoperative ileus: Status: Acute (2) COPD (chronic obstructive pulmonary disease): Status: Acute Plan 81 year old who [place] [facility] [place] where she was treated and diagnosed with colon cancer. Her hospital course was complicated by bacteremia and congestive heart failure exacerbation. He was discharged on 03/16/2022 and now returns on 03/19 with abdominal symptoms. Her CT imaging reveals a small bowel obstruction versus ileus with possible abscess. She is admitted under the General Surgical Services. Medical consult requested for comanagement. 1. Anemia s/p tranfusion 04/03 with good effect 2. CHF--not in failure, continue Lasix 3. history of COPD--no exacerbation no on any inhalers at baseline line ?? PRN albuterol if needed doing well on room air 4. Post op ileus mgmt per gen surg medically ok to disharge Will follow along. Quality Stroke Does the patient have a stroke diagnosis?: No VTE Prior VTE?: No VTE Risk Level:: Medical - moderate - high VTE Device Contraindication: N/A - Device Ordered VTE Drug Contraindication: N/A - Med Ordered
[2022-04-05] MEDS: HYDROmorphone HCl 0.5 MG/0.5 ML SYRINGE 0.25 MG IVPUSH ×3 (12:41→22:40)
[2022-04-05] MEDS: Zolpidem Tartrate 5 MG TABLET PO (22:40)
[2022-04-06] VITALS (7 sets, daily range): BP systolic 98–126; BP diastolic 58–76; PULSE 91–109; RESP 16–18; TEMP 36.1–36.6; O2SAT 93–97
[2022-04-06] MEDS: Omeprazole 20 MG CAPSULE.DR PO (05:45)
[2022-04-06 06:26] LABS: Anion Gap 15 (12-20); Blood Urea Nitrogen 33 mg/dL (9-16); Carbon Dioxide 24 mmol/L (22-29); Chloride 103 mmol/L (96-108); Creatinine Clr Calc Pharmacy 51.7; Estimated Glomerular Filt Rate > 60; Glucose Random 94 mg/dL (60-115); Potassium 3.9 mmol/L (3.3-5.1); Sodium 138 mmol/L (135-145)
--- NOTE | 2022-04-06 08:13 | PM.PNGS ---
Subjective Subjective Date of Service: 04/07/22 Interval history: says she is 'ok states PO intake better stoma functioning well Physical Exam Vital Signs: Vital Signs: Last Vital Signs Temp 97.8 F 04/06/22 07:31 Pulse 100 04/06/22 07:31 Resp 18 04/06/22 07:31 BP 114/60 04/06/22 07:31 Pulse Ox 93 04/06/22 07:31 O2 Del Method 04/06/22 07:31 O2 Flow Rate 0.5 04/03/22 15:12 Oxygen Flow Rate 3 03/19/22 14:24 BMI result Body Mass Index 22.6 Const: Other: frail looking General: comfortable and no acute distress Resp: Effort & Inspection: normal respiratory effort Cardio: Rate: regular rate GI: Other: stoma with good output, incision clean and dry Palpation (GI): Soft to palpation, not firm and no guarding Objective Data Active Medications Acetaminophen (Acetaminophen 325 Mg Tablet) 650 mg PO QID PRN PRN Reason: headache, temp > 101 Last Admin: 04/04/22 09:17 Dose: 650 mg Documented By: FLORY Al Hydroxide/Mg Hydroxide (Magnesium Hydrox/Alum Hydrox 30 Ml Oral.Susp) 15 ml PO TID PRN PRN Reason: Heartburn Last Admin: 04/01/22 00:01 Dose: 15 ml Documented By: LILY Ferrous Sulfate (Ferrous Sulfate 324 Mg Tablet.) 324 mg PO DAILY DEVORAH Last Admin: 04/05/22 08:13 Dose: 324 mg Documented By: ALISON Furosemide (Furosemide 40 Mg Tablet) 40 mg PO DAILY [facility]OR[facility]; Protocol Last Admin: 04/05/22 08:13 Dose: 40 mg Documented By: ALISON Hydromorphone HCl (Hydromorphone Hcl 0.5 Mg/0.5 Ml Syringe) 0.25 mg IVPUSH Q3H PRN; Protocol PRN Reason: Pain, Severe (Pain Scale 7-10) Last Admin: 04/05/22 22:40 Dose: 0.25 mg Documented By: RITESH Lidocaine (Lidocaine 4 % Patch Adh..Patch) 1 patch TRANSDERMA DAILY [facility]; Protocol Last Admin: 04/05/22 10:03 Dose: 1 patch Documented By: ALISON Omeprazole (Omeprazole 20 Mg Capsule.) 20 mg PO DAILY@0630 [facility] Last Admin: 04/06/22 05:45 Dose: 20 mg Documented By: RITESH Ondansetron HCl (Ondansetron Hcl 4 Mg/2 Ml Vial) 4 mg IVPUSH Q8H PRN PRN Reason: Nausea Last Admin: 03/31/22 21:07 Dose: 4 mg Documented By: LILY Pharmacy Consult (Consult Rx Perform Med Rec) 1 each MISCELLANE ONCE PRN PRN Reason: Consult order Labs CBC & Chem 7: 04/04/22 13:30 04/06/22 05:41 Labs: Laboratory Results - last 24 hr 04/06/22 05:41 Anion Gap 15 Estim Creat Clear Calc 51.7 Estimated GFR > 60 Random Glucose 94 Calcium 9.0 Procedures Date of Service Date of Service: 04/06/22 Progress Note: A&P Assessment and plan (1) Postoperative ileus: Status: Acute Assessment and Plan: good GI function oral intake better Ensure ordered stoma functioning well poss. transfer to SNF/Rehab today PT (2) Colon carcinoma: Status: Acute Assessment and Plan: outpt ffup with Dr. Davis (3) Acute urinary retention: Status: Acute Assessment and Plan: dw Dr. Williamson - keep Zarco in place due to large amount of residual pt to see Dr. Williamson in 2 weeks more or less Zarco to leg bag Time Spent With Patient Time: Total time spent is greater than 50% in coordination of care (as documented) at patient's floor/unit and/or counseling patient: Quality Stroke Does the patient have a stroke diagnosis?: No VTE Prior VTE?: No VTE Risk Level:: Medical - moderate - high VTE Device Contraindication: N/A - Device Ordered VTE Drug Contraindication: N/A - Med Ordered
[2022-04-06] MEDS: Furosemide 40 MG TABLET PO (09:37)
[2022-04-06] MEDS: Ferrous Sulfate 324 MG TABLET.DR PO (09:37)
[2022-04-06] MEDS: Lidocaine 4 % Patch ADH..PATCH 1 PATCH TRANSDERMA (09:37)
[2022-04-06] MEDS: Cyanocobalamin (Vitamin B-12) 1,000 MCG/ML VIAL 1000 MCG IM (09:43)
[2022-04-06] MEDS: HYDROmorphone HCl 0.5 MG/0.5 ML SYRINGE 0.25 MG IVPUSH ×3 (13:06→22:39)
--- NOTE | 2022-04-06 14:18 | MHC.CM.PN ---
CM DISCUSSED CASE W/SURGICAL AND NEW PLAN FOR PT TO SEE STOMA NURSE TOMORROW PRIOR TO D/CING TO [facility], CM CONTACTED [facility] AND SPOKE W/KANDACE WHO IS RUNNING PT'S INSURANCE AND WILL CONFIRM VIA [facility].
--- NOTE | 2022-04-06 15:03 | HO.PM.IMPN ---
Subjective Subjective Date of Service: 04/06/22 Interval History: seen and examined this morning Follow-up for anemia Feeling well, no complaints. Review of Systems Review of Systems: Yes all other systems are reviewed and are negative Constitutional Constitutional: Denies chills and Denies fever(s) Cardiovascular Cardiovascular: Denies chest pain, Denies palpitations and Denies dyspnea Respiratory Respiratory: Denies cough and Denies dyspnea Endocrine Endocrine: Denies palpitations Physical Exam Vital Signs: Vital Signs: Last Vital Signs Temp 97.6 F 04/06/22 12:00 Pulse 105 H 04/06/22 12:00 Resp 18 04/06/22 12:00 BP 119/76 04/06/22 12:00 Pulse Ox 94 04/06/22 12:00 O2 Del Method 04/06/22 12:00 O2 Flow Rate 0.5 04/03/22 15:12 Oxygen Flow Rate 3 03/19/22 14:24 BMI result Body Mass Index 22.6 Const: General: cooperative, comfortable, no acute distress and alert Nutritional Appearance: average body habitus Orientation/consciousness: patient oriented x3 Resp: Effort & Inspection: normal respiratory effort and able to speak in complete sentences Cardio: Rate: regular rate Heart sounds: S1 normal heart sound present and S2 normal heart sound present GI: Other: some output in ostomy Palpation (GI): Soft to palpation and nontender : Other: ambrose in place Neuro: General: patient oriented x3 Extrem: General: Yes no pedal edema Objective Data Active Medications Acetaminophen (Acetaminophen 325 Mg Tablet) 650 mg PO QID PRN PRN Reason: headache, temp > 101 Last Admin: 04/04/22 09:17 Dose: 650 mg Documented By: FLORY Al Hydroxide/Mg Hydroxide (Magnesium Hydrox/Alum Hydrox 30 Ml Oral.Susp) 15 ml PO TID PRN PRN Reason: Heartburn Last Admin: 04/01/22 00:01 Dose: 15 ml Documented By: LILY Ferrous Sulfate (Ferrous Sulfate 324 Mg Tablet.) 324 mg PO DAILY [facility] Last Admin: 04/06/22 09:37 Dose: 324 mg Documented By: ROMI Furosemide (Furosemide 40 Mg Tablet) 40 mg PO DAILY [facility]; Protocol Last Admin: 04/06/22 09:37 Dose: 40 mg Documented By: ROMI Hydromorphone HCl (Hydromorphone Hcl 0.5 Mg/0.5 Ml Syringe) 0.25 mg IVPUSH Q3H PRN; Protocol PRN Reason: Pain, Severe (Pain Scale 7-10) Last Admin: 04/06/22 13:06 Dose: 0.25 mg Documented By: ROMI Lidocaine (Lidocaine 4 % Patch Adh..Patch) 1 patch TRANSDERMA DAILY [facility]; Protocol Last Admin: 04/06/22 09:37 Dose: 1 patch Documented By: ROMI Omeprazole (Omeprazole 20 Mg Capsule.) 20 mg PO DAILY@0630 [facility] Last Admin: 04/06/22 05:45 Dose: 20 mg Documented By: RITESH Ondansetron HCl (Ondansetron Hcl 4 Mg/2 Ml Vial) 4 mg IVPUSH Q8H PRN PRN Reason: Nausea Last Admin: 03/31/22 21:07 Dose: 4 mg Documented By: LILY Pharmacy Consult (Consult Rx Perform Med Rec) 1 each MISCELLANE ONCE PRN PRN Reason: Consult order Labs CBC & Chem 7: 04/04/22 13:30 04/06/22 05:41 Labs: Laboratory Results - last 24 hr 04/06/22 05:41 Anion Gap 15 Estim Creat Clear Calc 51.7 Estimated GFR > 60 Random Glucose 94 Calcium 9.0 Assessment and Plan (1) Postoperative ileus: Status: Acute Plan 81 year old who was admitted to [facility] [place] from 03/07-03/16 where she was treated and diagnosed with colon cancer. Her hospital course was complicated by bacteremia and congestive heart failure exacerbation. He was discharged on 03/16/2022 and now returns on 03/19 with abdominal symptoms. Her CT imaging reveals a small bowel obstruction versus ileus with possible abscess. She is admitted under the General Surgical Services. Medical consult requested for comanagement. 1. Anemia s/p transfusion 04/03 with good effect 2. CHF--not in failure, continue Lasix 3. history of COPD--no exacerbation no on any inhalers at baseline line ?? PRN albuterol if needed doing well on room air 4. Post op ileus mgmt per gen surg medically ok to discharge attending - dr. giron Will follow along. Quality Stroke Does the patient have a stroke diagnosis?: No VTE Prior VTE?: No VTE Risk Level:: Medical - moderate - high VTE Device Contraindication: N/A - Device Ordered VTE Drug Contraindication: N/A - Med Ordered
[2022-04-06] MEDS: Zolpidem Tartrate 5 MG TABLET PO (22:50)
[2022-04-07] VITALS (7 sets, daily range): BP systolic 109–137; BP diastolic 56–67; PULSE 94–100; RESP 16–17; TEMP 36.1–36.4; O2SAT 94–97
[2022-04-07] MEDS: Omeprazole 20 MG CAPSULE.DR PO (05:54)
--- NOTE | 2022-04-07 09:11 | MHC.CLN ---
F/U DIET=REGULAR, BLAND. APPEARS TO BE TOLERATING DIET. INTAKE CONTINUES VARIABLE, 25-100%. MD ADDED ENSURE TID. PROVIDES ADDITIONAL 1050 KCALS, 60 G PROTEIN. MONITOR PO INTAKE AND TOLERANCE CLOSELY.
[2022-04-07] MEDS: Ferrous Sulfate 324 MG TABLET.DR PO (09:35)
[2022-04-07] MEDS: Furosemide 40 MG TABLET PO (09:35)
--- NOTE | 2022-04-07 11:06 | P.PNGS_ITS ---
Subjective Subjective Date of Service: 04/07/22 Interval history: no new complaints says her oral intake is better stoma functioning wel Physical Exam Vital Signs: Vital Signs: Last Vital Signs Temp 97.2 F 04/07/22 07:14 Pulse 97 04/07/22 10:28 Resp 17 04/07/22 07:14 BP 137/65 04/07/22 10:28 Pulse Ox 97 04/07/22 10:28 O2 Del Method 04/07/22 07:14 O2 Flow Rate 0.5 04/03/22 15:12 Oxygen Flow Rate 3 03/19/22 14:24 BMI result Body Mass Index 22.6 Const: Other: frail looking General: comfortable Resp: Effort & Inspection: normal respiratory effort Cardio: Rate: regular rate GI: Other: stoma functioning, incision clean and dry Palpation (GI): Soft to palpation and no guarding Objective Data Active Medications Acetaminophen (Acetaminophen 325 Mg Tablet) 650 mg PO QID PRN PRN Reason: headache, temp > 101 Last Admin: 04/04/22 09:17 Dose: 650 mg Documented By: FLORY Al Hydroxide/Mg Hydroxide (Magnesium Hydrox/Alum Hydrox 30 Ml Oral.Susp) 15 ml PO TID PRN PRN Reason: Heartburn Last Admin: 04/01/22 00:01 Dose: 15 ml Documented By: LILY Ferrous Sulfate (Ferrous Sulfate 324 Mg Tablet.) 324 mg PO DAILY [facility] Last Admin: 04/07/22 09:35 Dose: 324 mg Documented By: MICHAEL Furosemide (Furosemide 40 Mg Tablet) 40 mg PO DAILY [facility]; Protocol Last Admin: 04/07/22 09:35 Dose: 40 mg Documented By: MICHAEL Hydromorphone HCl (Hydromorphone Hcl 0.5 Mg/0.5 Ml Syringe) 0.25 mg IVPUSH Q3H PRN; Protocol PRN Reason: Pain, Severe (Pain Scale 7-10) Last Admin: 04/06/22 22:39 Dose: 0.25 mg Documented By: JACQUELINE Lidocaine (Lidocaine 4 % Patch Adh..Patch) 1 patch TRANSDERMA DAILY [facility]; Protocol Last Admin: 04/07/22 09:35 Dose: Not Given Documented By: MICHAEL Non-Admin Reason: Patient Refused Omeprazole (Omeprazole 20 Mg Capsule.) 20 mg PO DAILY@0630 [facility] Last Admin: 04/07/22 05:54 Dose: 20 mg Documented By: JACQUELINE Ondansetron HCl (Ondansetron Hcl 4 Mg/2 Ml Vial) 4 mg IVPUSH Q8H PRN PRN Reason: Nausea Last Admin: 03/31/22 21:07 Dose: 4 mg Documented By: LILY Pharmacy Consult (Consult Rx Perform Med Rec) 1 each MISCELLANE ONCE PRN PRN Reason: Consult order Zolpidem Tartrate (Zolpidem Tartrate 5 Mg Tablet) 5 mg PO BEDTIME PRN PRN Reason: Insomnia Last Admin: 04/06/22 22:50 Dose: 5 mg Documented By: JACQUELINE Labs CBC & Chem 7: 04/04/22 13:30 04/06/22 05:41 Procedures Date of Service Date of Service: 04/07/22 Progress Note: A&P Assessment and plan (1) Postoperative ileus: Status: Acute Assessment and Plan: doing much better good oral intake awaiting SNF - she was scheduled to go to [facility] but they backed out push PO intake - on Ensure another SNF being arranged by telephonic nurse case manager Time Spent With Patient Time: Total time spent is greater than 50% in coordination of care (as documented) at patient's floor/unit and/or counseling patient: Quality Stroke Does the patient have a stroke diagnosis?: No VTE Prior VTE?: No VTE Risk Level:: Medical - moderate - high VTE Device Contraindication: N/A - Device Ordered VTE Drug Contraindication: N/A - Med Ordered
--- NOTE | 2022-04-07 12:37 | PM.DS ---
DS: Providers Provider Date of Service: 04/07/22 <Marty Cortez MD - Last Filed: 04/07/22 12:54> Date of admission: 03/19/22 17:52 <Marty Cortez MD - Last Filed: 04/07/22 12:54> Date of discharge: 04/10/22 <Chidi Jarvis MD - Last Filed: 04/10/22 12:24> Primary care physician: Kriss De Leon NP <Marty Cortez MD - Last Filed: 04/07/22 12:54> Consults: 03/19/22 17:48 Consult to Hospitalist Routine Consulting Provider: Hospitalist Reason For Exam: COPD, CHF <Marty Cortez MD - Last Filed: 04/07/22 12:54> Attending physician on discharge: Marty Cortez <Chidi Jarvis MD - Last Filed: 04/10/22 12:24> DS: Diagnosis Discharge Diagnosis (1) Postoperative ileus: Status: Acute <Marty Cortez MD - Last Filed: 04/07/22 12:54> (2) Colon carcinoma: Status: Acute <Marty Cortez MD - Last Filed: 04/07/22 12:54> (3) Acute urinary retention: Status: Acute <Marty Cortez MD - Last Filed: 04/07/22 12:54> (4) Chronic restrictive lung disease: Status: Acute <Marty Cortez MD - Last Filed: 04/07/22 12:54> (5) Emphysema lung: Status: Acute <Marty Cortez MD - Last Filed: 04/07/22 12:54> DS: Summary Hospital Course Hospital Course: The patient is an 81F who was admitted last March 19, 2022 from a SNF because of vomitting. She had undergone emergency right colon resection, end-ileostomy, mucus fistula last March 07, 2022 because of cecal perforation from an obstructing right colon tumor which turned out to be an adenocarcinoma. She was discharged on March 16 but was readmitted for vomitting. Initial impression was partial SBO vs. postop ileus. In view of her persistent vomitting, she had an NGT inserted on hospital day one. She was also in urinary retention with note of more than 1 liter of urine drained with insertion of the catheter. 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 She was started on TPN after hospital day 4 after a PICC line was placed . Her NGT was discontinued after a week in the hospital after she started to have ielostomy output..She was kept on clear liquids for a few days and this was slowly advanced. She was transfused 1 unit for a Hg of 7.4 with appropriate increase. She was being followed by the Hospitalist for her medical issues. She had a physical therapist see her for deconditioning and frailty and it was recommended that she should be in Rehab on discharge. Her TPN was discontinued earlier this week after her oral intake had improved. She had otherwise remained stable during her stay. She had a prolonged stay due to her fraily and deconditioning, as she did not feel ready to be moved to Rehab. Her Zarco catheter is to be kept in place, as Dr. Williamson had stated that he will see the patient in the office to see her if this can be removed. <Marty Cortez MD - Last Filed: 04/07/22 12:54> Time spent discussing smoking cessation with patient: 3 to 10 minutes <Marty Cortez MD - Last Filed: 04/07/22 12:54> Time Spent with Patient Time attestation: Total time spent providing and/or coordinating discharge services: <Marty Cortez MD - Last Filed: 04/07/22 12:54> Discharge coordination time: Greater than 30 minutes <Marty Cortez MD - Last Filed: 04/07/22 12:54> Quality: Safe Use of Opioids Does Pt have an Active Cancer Diagnosis on the Problem List?: Yes <Marty Cortez MD - Last Filed: 04/07/22 12:54> Opioid Measure Date for CMS Report: 03/08/22 <Marty Cortez MD - Last Filed: 04/07/22 12:54> 03/11/22 <Chidi Jarvis MD - Last Filed: 04/10/22 12:24> Opioid Measure Time for CMS Report: 12:53 <Marty Cortez MD - Last Filed: 04/07/22 12:54> 12:23 <Chidi Jarvis MD - Last Filed: 04/10/22 12:24> Quality: Stroke Does the patient have a stroke diagnosis?: No <Marty Cortez MD - Last Filed: 04/07/22 12:54> Physical Exam Vital Signs: Vital Signs: Last Vital Signs Temp 97.6 F 04/07/22 11:11 Pulse 97 04/07/22 11:11 Resp 17 04/07/22 11:11 BP 109/66 04/07/22 11:11 Pulse Ox 94 04/07/22 11:11 O2 Del Method 04/07/22 11:11 O2 Flow Rate 0.5 04/03/22 15:12 Oxygen Flow Rate 3 03/19/22 14:24 BMI result Body Mass Index 22.6 <Marty Cortez MD - Last Filed: 04/07/22 12:54> Const: Other: very frail looking <Marty Cortez MD - Last Filed: 04/07/22 12:54> General: comfortable and no acute distress <Matry Cortez MD - Last Filed: 04/07/22 12:54> Orientation/consciousness: patient oriented x3 <Marty Cortez MD - Last Filed: 04/07/22 12:54> Neck: Neck: Yes no lymphadenopathy <Marty Cortez MD - Last Filed: 04/07/22 12:54> Resp: Auscultation: clear to auscultation bilaterally <Marty Cortez MD - Last Filed: 04/07/22 12:54> Cardio: Rhythm: regular rhythm <Marty Cortez MD - Last Filed: 04/07/22 12:54> GI: Other: ileostomy on right side, mucus fistula on RUQ <Marty Cortez MD - Last Filed: 04/07/22 12:54> Palpation (GI): Soft to palpation, nontender and no guarding <Marty Cortez MD - Last Filed: 04/07/22 12:54> Neuro: General: patient oriented x3 <Marty Cortez MD - Last Filed: 04/07/22 12:54> DS: Data Data Completed and Pending Completed studies during hospitalization [Text1]: Procedures Bypass Ileum to Cutaneous, Open Approach (03/07/22) Bypass Transverse Colon to Cutaneous with Autologous Tissue Substitute, Open Approach (03/07/22) Excision of Right Large Intestine, Open Approach (03/07/22) <Marty Cortez MD - Last Filed: 04/07/22 12:54> Labs on day of discharge: Laboratory Results WBC 9.6 X10*3/uL (4.8-10.8) 04/03/22 08:18 RBC 3.04 X10*6/uL (4.20-5.50) L 04/03/22 08:18 Hgb 9.1 g/dl (12.0-16.0) L 04/04/22 13:30 Hct 28.5 % (37.0-47.0) L 04/04/22 13:30 MCV 80.9 fL (80.0-98.0) 04/03/22 08:18 MCH 25.3 pg (27.0-33.0) L 04/03/22 08:18 MCHC 31.3 g/dl (31.0-35.0) 04/03/22 08:18 RDW 17.4 % (11.0-16.0) H 04/03/22 08:18 Plt Count 360 X10*3/uL (160-400) 04/03/22 08:18 MPV 11.0 fL (9.4-12.3) 04/03/22 08:18 Immature Gran % (Auto) 1.8 % (0.0-0.4) H 03/19/22 14:42 Neut % (Auto) 86.2 % (45-73) H 03/19/22 14:42 Lymph % (Auto) 4.9 % (20-40) L 03/19/22 14:42 Snyder % (Auto) 6.1 % (2-11) 03/19/22 14:42 Eos % (Auto) 0.1 % (0-4) 03/19/22 14:42 Baso % (Auto) 0.9 % (0-2) 03/19/22 14:42 Lymph # (Auto) 1.1 X10*3/uL (1.2-4.9) L 03/19/22 14:42 Snyder # (Auto) 1.3 X10*3/uL (0.1-1.2) H 03/19/22 14:42 Eos # (Auto) 0.0 X10*3/uL (0.0-0.4) 03/19/22 14:42 Baso # (Auto) 0.2 X10*3/uL (0.0-0.2) 03/19/22 14:42 Abs Immat Gran (auto) 0.38 X10*3/uL (0.00-0.03) H 03/19/22 14:42 Absolute Neuts (auto) 18.5 x10*3/uL (2.0-8.3) H 03/19/22 14:42 Absolute Nucleated RBC 0.000 X10*3/uL (0.0-0.012) 04/03/22 08:18 Nucleated RBC % (auto) 0.0 /100WBC (0.0-0.2) 04/03/22 08:18 Sodium 138 mmol/L (135-145) 04/06/22 05:41 Potassium 3.9 mmol/L (3.3-5.1) 04/06/22 05:41 Chloride 103 mmol/L (96-108) 04/06/22 05:41 Carbon Dioxide 24 mmol/L (22-29) 04/06/22 05:41 Anion Gap 15 (12-20) 04/06/22 05:41 BUN 33 mg/dL (9-16) H 04/06/22 05:41 Creatinine 0.78 mg/dL (0.5-1.4) 04/06/22 05:41 Estim Creat Clear Calc 51.7 04/06/22 05:41 Estimated GFR > 60 04/06/22 05:41 Random Glucose 94 mg/dL (60-115) 04/06/22 05:41 Lactic Acid 0.9 mmol/L (0.5-2.0) 03/19/22 17:06 Calcium 9.0 mg/dL (8.4-10.2) 04/06/22 05:41 Phosphorus 4.4 mg/dL (2.7-4.5) 04/03/22 08:18 Magnesium 1.9 mg/dL (1.6-2.6) 04/03/22 08:18 Iron 30 mcg/dL (30-160) 04/03/22 08:18 TIBC 302 mcg/dL (228-428) 04/03/22 08:18 % Saturation 10 % (15-50) L 04/03/22 08:18 Unsat Iron Binding 272 ug/dL 04/03/22 08:18 Ferritin 54 ng/mL (10-250) 04/03/22 08:18 Total Bilirubin 0.3 mg/dL (0.0-1.0) 03/23/22 10:39 AST 13 U/L (5-31) D 03/23/22 10:39 ALT 9 U/L (0-31) 03/23/22 10:39 Alkaline Phosphatase 50 U/L (39-117) D 03/23/22 10:39 B-Natriuretic Peptide 83 pg/mL (<100) 03/19/22 14:42 Total Protein 5.4 g/dL (6.5-8.0) L 03/23/22 10:39 Albumin 3.1 g/dL (3.5-5.0) L 03/31/22 12:01 Triglycerides 69 mg/dL 03/31/22 12:01 Lipase 91 U/L (8-78) H 03/19/22 14:42 Vitamin B12 661 pg/mL (200-900) 04/03/22 08:18 Folate 10.7 ng/mL (> or = 4.0) 04/03/22 08:18 Urine Color YELLOW 03/19/22 17:06 Urine Appearance CLEAR 03/19/22 17:06 Urine pH 5.5 (5.0-8.0) 03/19/22 17:06 Ur Specific [place] 1.020 (1.005-1.025) 03/19/22 17:06 Urine Protein NEG MG/DL (NEG-TRACE) 03/19/22 17:06 Urine Glucose (UA) NEG MG/DL (NEG) 03/19/22 17:06 Urine Ketones NEG MG/DL (NEG) 03/19/22 17:06 Urine Blood NEG (NEG) 03/19/22 17:06 Urine Nitrite NEG (NEG) 03/19/22 17:06 Ur Leukocyte Esterase NEG (NEG) 03/19/22 17:06 Urine RBC 0-2 /HPF (0) 03/19/22 17:06 Urine WBC 0-2 /HPF (0-4) 03/19/22 17:06 Ur Squamous Epith Cells NONE /LPF 03/19/22 17:06 Amorphous Sediment TRACE /LPF 03/19/22 17:06 Urine Bacteria NONE /LPF 03/19/22 17:06 COVID-19 (SOFIYA) Negative (Negative) 03/19/22 18:34 COVID-19 Clin Com See Note 03/19/22 18:34 Blood Type O Positive 04/03/22 10:47 Antibody Screen POSITIVE 04/03/22 10:47 Antibody Identification Anti-Fya 04/03/22 10:47 Antigen Identification Fya Antigen - NEGATIVE 04/03/22 10:47 Crossmatch See Detail 04/03/22 10:47 Crossmatch (AHG) See Detail 04/03/22 10:47 Impressions Chest X-Ray 03/20/22 11:59 IMPRESSION: The NG tube is in the stomach but the stomach is within the chest. KUB X-Ray 03/21/22 08:45 IMPRESSION: * The tip of the NG tube is coiled within the hiatal hernia. * Although the overall amount of gas in small bowel is decreased compared to 03/19/2022, the size of the visualized loops is not appreciably changed (measure up to approximately 4 cm maximum diameter). Therefore, no significant improvement in small bowel obstruction. Abdomen/Pelvis CT 03/22/22 10:20 IMPRESSION: -Loculated right posterior pelvic fluid collection slightly decreased in size from prior CT 03/19/2022. -Partial small bowel obstruction decreased. -Status post decompression urinary bladder and hydroureter following Zarco catheter. -Multiple other findings similar to previous exam. Guidance Ultrasound 03/22/22 17:36 IMPRESSION: Successful ultrasound and fluoroscopy-guided 5 Italian 42 CM long left PICC line placement. The PICC is ready for use. PICC Line Insertion 03/22/22 17:36 IMPRESSION: Successful ultrasound and fluoroscopy-guided 5 Italian 42 CM long left PICC line placement. The PICC is ready for use. <Marty Cortez MD - Last Filed: 04/07/22 12:54> Discharge Plan Discharge Patient Disposition: Xfer Inpatient Rehab Fac <Marty Cortez MD - Last Filed: 04/07/22 12:54> Discharge Diagnosis: postop ileus, s/p colon resection <Marty Cortez MD - Last Filed: 04/07/22 12:54> postop ileus, s/p colon resection <Chidi Jarvis MD - Last Filed: 04/10/22 12:24> Referrals: Yaya Williamson MD [Physician] - 2 Weeks [place], [employer] [Primary Care Provider] - 1 Week Marty Cortez MD [Physician] - 2 Weeks <Marty Cortez MD - Last Filed: 04/07/22 12:54> Discharge Medications: New zolpidem [Ambien] 10 mg tablet 10 mg PO BEDTIME PRN (Reason: insomnia) Qty: 20 0RF Continued tizanidine 4 mg tablet 4 mg PO BEDTIME PRN (Reason: Muscle Pain) ferrous sulfate 325 mg (65 mg iron) Tablet 325 mg PO DAILY [id number] Tablet 1 tab PO DAILY cholecalciferol (vitamin D3) 25 mcg (1,000 unit) Tablet 25 mcg PO DAILY cyanocobalamin (vitamin B-12) 1,000 mcg/mL Solution 1,000 mcg IM QMONTH Rx Instructions: on the 1st of every month enoxaparin [Lovenox] 30 mg/0.3 mL Syringe 30 mg SUBCUT Q24H oxycodone-acetaminophen [Percocet] 5-325 mg tablet 2 tab PO Q4H PRN (Reason: Severe Pain (Scale Score 7-10)) Rx Instructions: Partial Fill upon patient request. calcium carbonate 500 mg calcium (1,250 mg) Tablet 500 mg PO DAILY furosemide 40 mg Tablet 40 mg PO DAILY Qty: 30 0RF Protocol: Hold for SBP< HOLD for SBP < : 90 Changed omeprazole 20 mg capsule,delayed release(DR/EC) 20 mg PO BID Qty: 60 2RF Discontinued metronidazole 500 mg tablet 500 mg PO TID Rx Instructions: x 5 days, finish 03/21/22 <Marty Cortez MD - Last Filed: 04/07/22 12:54> Discharge Orders: Discharge Order (Routine); Ordered 04/10/22 Ordered By: Chidi Jarvis <Marty Cortez MD - Last Filed: 04/07/22 12:54> Diet: eNSURE 1 CAN THREE TIMES <Marty Cortez MD - Last Filed: 04/07/22 12:54> eNSURE 1 CAN THREE TIMES <Chidi Jarvis MD - Last Filed: 04/10/22 12:24> Activity on Discharge: No heavy lifting <Marty Cortez MD - Last Filed: 04/07/22 12:54> No heavy lifting <Chidi Jarvis MD - Last Filed: 04/10/22 12:24> Stand Alone Forms: Patient Portal Discharge page <Marty Cortez MD - Last Filed: 04/07/22 12:54> Activity Restrictions/Additional Instructions: no lifting more than 20 lbs ok to shower Zarco to leg bag and empty as needed No strenuous activities Call the office for follow-up in 2 weeks - with Dr. Cortez Call Your Doctor If: -Your temperature exceeds 101.5? F -You experience excessive pain or swelling -You have an unexpected reaction to medication -You have excessive bleeding -You experience continued vomiting/nausea -Your incision begins to separate -Your incision shows signs of infection such as increased redness, swelling, excessive pain, drainage (light blood or clear fluid is normal) or heat <Marty Cortez MD - Last Filed: 04/07/22 12:54> Care Plan Goals: undergo physical therapy treat colon cancer <Marty Cortez MD - Last Filed: 04/07/22 12:54> Health Concerns: colon cancer COPD anemia deconditioning urinary retention <Marty Cortez MD - Last Filed: 04/07/22 12:54> Plan of Treatment: physical therapy ffup with Urology - Dr Williamson ffup with Oncology - Dr. Davis <Marty Cortez MD - Last Filed: 04/07/22 12:54> Assessment: doing well <Marty Cortez MD - Last Filed: 04/07/22 12:54>
--- NOTE | 2022-04-07 14:38 | MHC.CM.PN ---
PT DECLINING ALL STR'S OTHER THAN [facility], REGULAR LIAISON ON VACATION AND [facility] HOWEVER [facility] IS OFF TODAY D/T WORKING THE W/E, CM SPOKE W/MANAGEMENT WHO REQUESTED WE RESEND REFERRAL AND THEY WOULD REVIEW AND SEND ANSWER OVER [facility] HOWEVER CM DID NOT RECEIVE ANY CALL OR ANSWER, CM CALLED BACK AT 2:30PM FOR UPDATE AND THEY REPORTED THEY WOULD REVIEW AND GET BACK TO CM, CM AWAITING REPOSNSE AT TIME OF THIS NOTE.
--- NOTE | 2022-04-07 15:31 | MHC.CM.PN ---
CM RECEIVED CALL BACK FROM CHIP AT [facility], PER CHIP [facility] HAS REVIEWED AND THEY ARE UNABLE TO OFFER A BED TO PT, WHEN ASKING WHY THEY GAVE NO REASON OTHER THAN THEY HAVE NO APPROPRIATE BED, CM WILL SPEAK TO PT TO DISCUSS OTHER OPTIONS.
--- NOTE | 2022-04-07 16:00 | MHC.CM.PN ---
CM MET W/PT WHO IS VISIBLY UPSET W/NEWS THAT [facility] IS NOT OFFERING PT A BED AND NOT GIVING A REAL ANSWER OF WHY, PT IS CURRENTLY REFUSING TO DISCUSS OR CONSIDER OTHER SNF OPTIONS LIKE [facility] WHO HAD BOTH OFFERED BEDS, PT ADAMANT SHE WANTS TO KEEP TRYING FOR [facility] AND PLAN FOR W/E CM TO CHECK IN W/HER TOMORROW. SURGICAL AND NGS AWARE.
[2022-04-07] MEDS: HYDROmorphone HCl 0.5 MG/0.5 ML SYRINGE 0.25 MG IVPUSH ×2 (16:14→23:52)
--- NOTE | 2022-04-07 17:25 | P.PNIM_ITS ---
Subjective Subjective Date of Service: 04/07/22 Interval History: seen and examined this morning follow up for consult no overnight events no significant change from yesterday Review of Systems Review of Systems: Yes all other systems are reviewed and are negative Constitutional Constitutional: Denies chills and Denies fever(s) Cardiovascular Cardiovascular: Denies chest pain and Denies dyspnea Respiratory Respiratory: Denies cough and Denies dyspnea Physical Exam Vital Signs: Vital Signs: Last Vital Signs Temp 97.3 F 04/07/22 16:00 Pulse 100 04/07/22 16:00 Resp 17 04/07/22 16:00 BP 124/67 04/07/22 16:00 Pulse Ox 94 04/07/22 11:11 O2 Del Method 04/07/22 16:00 O2 Flow Rate 0.5 04/03/22 15:12 Oxygen Flow Rate 3 03/19/22 14:24 BMI result Body Mass Index 22.6 Const: General: cooperative, comfortable, no acute distress and alert Nutritional Appearance: average body habitus Orientation/consciousness: patient oriented x3 Resp: Effort & Inspection: normal respiratory effort and able to speak in complete sentences Cardio: Rate: regular rate Heart sounds: S1 normal heart sound present and S2 normal heart sound present GI: Other: some output in ostomy Palpation (GI): Soft to palpation and nontender : Other: ambrose in place Neuro: General: patient oriented x3 Extrem: General: Yes no pedal edema Objective Data Active Medications Acetaminophen (Acetaminophen 325 Mg Tablet) 650 mg PO QID PRN PRN Reason: headache, temp > 101 Last Admin: 04/04/22 09:17 Dose: 650 mg Documented By: FLORY Al Hydroxide/Mg Hydroxide (Magnesium Hydrox/Alum Hydrox 30 Ml Oral.Susp) 15 ml PO TID PRN PRN Reason: Heartburn Last Admin: 04/01/22 00:01 Dose: 15 ml Documented By: LILY Ferrous Sulfate (Ferrous Sulfate 324 Mg Tablet.) 324 mg PO DAILY DEVORAH Last Admin: 04/07/22 09:35 Dose: 324 mg Documented By: MICHAEL Furosemide (Furosemide 40 Mg Tablet) 40 mg PO DAILY [facility]; Protocol Last Admin: 04/07/22 09:35 Dose: 40 mg Documented By: MICHAEL Hydromorphone HCl (Hydromorphone Hcl 0.5 Mg/0.5 Ml Syringe) 0.25 mg IVPUSH Q3H PRN; Protocol PRN Reason: Pain, Severe (Pain Scale 7-10) Last Admin: 04/07/22 16:14 Dose: 0.25 mg Documented By: ANALIA Lidocaine (Lidocaine 4 % Patch Adh..Patch) 1 patch TRANSDERMA DAILY [facility]; Protocol Last Admin: 04/07/22 09:35 Dose: Not Given Documented By: MICHAEL Non-Admin Reason: Patient Refused Omeprazole (Omeprazole 20 Mg Jay.) 20 mg PO DAILY@0630 [facility] Last Admin: 04/07/22 05:54 Dose: 20 mg Documented By: JACQUELINE Ondansetron HCl (Ondansetron Hcl 4 Mg/2 Ml Vial) 4 mg IVPUSH Q8H PRN PRN Reason: Nausea Last Admin: 03/31/22 21:07 Dose: 4 mg Documented By: LILY Pharmacy Consult (Consult Rx Perform Med Rec) 1 each MISCELLANE ONCE PRN PRN Reason: Consult order Zolpidem Tartrate (Zolpidem Tartrate 5 Mg Tablet) 5 mg PO BEDTIME PRN PRN Reason: Insomnia Last Admin: 04/06/22 22:50 Dose: 5 mg Documented By: JACQUELINE Labs CBC & Chem 7: 04/04/22 13:30 04/06/22 05:41 Assessment and Plan (1) Colon carcinoma: Status: Acute (2) Anemia: Status: Acute Plan 81 year old who was admitted to [facility] from 03/07-03/16 where she was treated and diagnosed with colon cancer. Her hospital course was complicated by bacteremia and congestive heart failure exacerbation. He was discharged on 03/16/2022 and now returns on 03/19 with abdominal symptoms. Her CT imaging reveals a small bowel obstruction versus ileus with possible abscess. She is admitted under the General Surgical Services. Medical consult requested for comanagement. 1. Anemia s/p transfusion 04/03 with good effect 2. CHF--not in failure, continue Lasix 3. history of COPD--no exacerbation no on any inhalers at baseline line ?? PRN albuterol if needed doing well on room air 4. Post op ileus mgmt per gen surg medically ok to discharge. will sign off. attending - dr. giorn Quality Stroke Does the patient have a stroke diagnosis?: No VTE Prior VTE?: No VTE Risk Level:: Medical - moderate - high VTE Device Contraindication: N/A - Device Ordered VTE Drug Contraindication: N/A - Med Ordered
[2022-04-07] MEDS: Zolpidem Tartrate 5 MG TABLET PO (23:56)
[2022-04-08 03:40] VITALS: BP 111/57; PULSE 91; RESP 16; TEMP 36.1; O2SAT 99
[2022-04-08] MEDS: Omeprazole 20 MG CAPSULE.DR PO (06:16)
[2022-04-08 07:50] VITALS: BP 105/54; PULSE 96; RESP 16; TEMP 36.1; O2SAT 95
[2022-04-08] MEDS: Furosemide 40 MG TABLET PO (09:36)
[2022-04-08] MEDS: Ferrous Sulfate 324 MG TABLET.DR PO (09:36)
--- NOTE | 2022-04-08 11:11 | PM.PNGS ---
Subjective Subjective Date of Service: 04/08/22 Patient reports: no new complaints and tolerating a regular diet Interval history: The patient is seen in coverage she reports no new complaints such as headache, visual disturbance, chest pain, abdominal pain She is tolerating her diet and awaiting placement Physical Exam Vital Signs: Vital Signs: Last Vital Signs Temp 96.9 F 04/08/22 07:50 Pulse 96 04/08/22 07:50 Resp 16 04/08/22 07:50 BP 105/54 L 04/08/22 07:50 Pulse Ox 95 04/08/22 07:50 O2 Del Method 04/08/22 07:50 O2 Flow Rate 0.5 04/03/22 15:12 Oxygen Flow Rate 3 03/19/22 14:24 BMI result Body Mass Index 22.6 Abdomen is soft and non distended. No tenderness is present Incisions are healing well Objective Data Active Medications Acetaminophen (Acetaminophen 325 Mg Tablet) 650 mg PO QID PRN PRN Reason: headache, temp > 101 Last Admin: 04/04/22 09:17 Dose: 650 mg Documented By: FLORY Al Hydroxide/Mg Hydroxide (Magnesium Hydrox/Alum Hydrox 30 Ml Oral.Susp) 15 ml PO TID PRN PRN Reason: Heartburn Last Admin: 04/01/22 00:01 Dose: 15 ml Documented By: LILY Ferrous Sulfate (Ferrous Sulfate 324 Mg Tablet.) 324 mg PO DAILY DEVORAH Last Admin: 04/08/22 09:36 Dose: 324 mg Documented By: MICHAEL Furosemide (Furosemide 40 Mg Tablet) 40 mg PO DAILY DEVORAH; Protocol Last Admin: 04/08/22 09:36 Dose: 40 mg Documented By: MICHAEL Hydromorphone HCl (Hydromorphone Hcl 0.5 Mg/0.5 Ml Syringe) 0.25 mg IVPUSH Q3H PRN; Protocol PRN Reason: Pain, Severe (Pain Scale 7-10) Last Admin: 04/07/22 23:52 Dose: 0.25 mg Documented By: ARNOLD Lidocaine (Lidocaine 4 % Patch Adh..Patch) 1 patch TRANSDERMA DAILY DEVORAH; Protocol Last Admin: 04/08/22 09:36 Dose: Not Given Documented By: MICHAEL Non-Admin Reason: Patient Refused Omeprazole (Omeprazole 20 Mg Capsule.) 20 mg PO DAILY@0630 [facility] Last Admin: 04/08/22 06:16 Dose: 20 mg Documented By: ARNOLD Ondansetron HCl (Ondansetron Hcl 4 Mg/2 Ml Vial) 4 mg IVPUSH Q8H PRN PRN Reason: Nausea Last Admin: 03/31/22 21:07 Dose: 4 mg Documented By: LILY Pharmacy Consult (Consult Rx Perform Med Rec) 1 each MISCELLANE ONCE PRN PRN Reason: Consult order Zolpidem Tartrate (Zolpidem Tartrate 5 Mg Tablet) 5 mg PO BEDTIME PRN PRN Reason: Insomnia Last Admin: 04/07/22 23:56 Dose: 5 mg Documented By: ARNOLD Labs CBC & Chem 7: 04/04/22 13:30 04/06/22 05:41 Procedures Date of Service Date of Service: 04/08/22 Progress Note: A&P Assessment and plan (1) Colon carcinoma: Status: Acute (2) Postoperative ileus: Status: Acute (3) Chronic restrictive lung disease: Status: Acute (4) Emphysema lung: Status: Acute (5) Pulmonary nodule: Status: Acute Plan Awaiting placement Continue present management Time Spent With Patient Time: Total time spent is greater than 50% in coordination of care (as documented) at patient's floor/unit and/or counseling patient: Quality Stroke Does the patient have a stroke diagnosis?: No VTE Prior VTE?: No VTE Risk Level:: Medical - moderate - high VTE Device Contraindication: N/A - Device Ordered VTE Drug Contraindication: N/A - Med Ordered
[2022-04-08 11:53] VITALS: BP 128/60; PULSE 98; RESP 14; TEMP 36.6; O2SAT 96
[2022-04-08] MEDS: HYDROmorphone HCl 0.5 MG/0.5 ML SYRINGE 0.25 MG IVPUSH ×2 (12:48→21:33)
[2022-04-08] MEDS: Lidocaine 4 % Patch ADH..PATCH 1 PATCH TRANSDERMA ×2 (12:49)
--- NOTE | 2022-04-08 13:50 | MHC.CM.PN ---
Patient requesting to meet with LUISA Baca met with patient and Nora/HCP. They inquired as to why [facility] was not offering a bed.They were informed facilities usually don't tell us why there was no offer accept when they don't have an available bed. CM provided Nora and patient the phone number to [facility] for them to call directly. CM informed patient there are other facilities making who have made bed offers, patient refused to consider other SNFs. They requested [facility] be updated today. They were informed all SNFs were updated this morning including [facility].
[2022-04-08 16:00] VITALS: BP 132/69; PULSE 91; RESP 20; TEMP 37.1; O2SAT 97
[2022-04-08 19:33] VITALS: BP 102/57; PULSE 100; RESP 20; TEMP 37.2; O2SAT 94
[2022-04-08] MEDS: Zolpidem Tartrate 5 MG TABLET PO (21:32)
[2022-04-08 23:46] VITALS: BP 95/56; PULSE 94; RESP 18; TEMP 36.6; O2SAT 95
[2022-04-09 03:27] VITALS: BP 105/51; PULSE 91; RESP 18; TEMP 36.5; O2SAT 95
[2022-04-09] MEDS: Omeprazole 20 MG CAPSULE.DR PO (06:10)
[2022-04-09 07:40] VITALS: BP 107/59; PULSE 90; RESP 16; TEMP 36.7; O2SAT 95
[2022-04-09] MEDS: Furosemide 40 MG TABLET PO (08:55)
[2022-04-09] MEDS: Ferrous Sulfate 324 MG TABLET.DR PO (08:55)
[2022-04-09 11:17] VITALS: BP 107/55; PULSE 90; RESP 18; TEMP 36.1; O2SAT 95
--- NOTE | 2022-04-09 15:46 | P.PNGS_ITS ---
Subjective Subjective Date of Service: 04/09/22 Patient reports: no new complaints Interval history: The patient is seen in coverage She is tolerating her bland diet and requests a liberal regular diet. She otherwise denies headache, visual problems, chest pain or abdominal pain. She is awaiting placement Physical Exam Vital Signs: Vital Signs: Last Vital Signs Temp 96.9 F 04/09/22 11:17 Pulse 90 04/09/22 11:17 Resp 18 04/09/22 11:17 BP 107/55 L 04/09/22 11:17 Pulse Ox 95 04/09/22 11:17 O2 Del Method 04/09/22 11:17 O2 Flow Rate 0.5 04/03/22 15:12 Oxygen Flow Rate 3 03/19/22 14:24 BMI result Body Mass Index 22.6 She is nontoxic and in good spirits NC/AT, PERRLA, EOMI Sclerae anicteric Abdomen is soft with no tenderness, no rebound, rigidity or guarding Objective Data Active Medications Acetaminophen (Acetaminophen 325 Mg Tablet) 650 mg PO QID PRN PRN Reason: headache, temp > 101 Last Admin: 04/04/22 09:17 Dose: 650 mg Documented By: FLORY Al Hydroxide/Mg Hydroxide (Magnesium Hydrox/Alum Hydrox 30 Ml Oral.Susp) 15 ml PO TID PRN PRN Reason: Heartburn Last Admin: 04/01/22 00:01 Dose: 15 ml Documented By: LILY Ferrous Sulfate (Ferrous Sulfate 324 Mg Tablet.Dr) 324 mg PO DAILY DEVORAH Last Admin: 04/09/22 08:55 Dose: 324 mg Documented By: MICHAEL Furosemide (Furosemide 40 Mg Tablet) 40 mg PO DAILY DEVORAH; Protocol Last Admin: 04/09/22 08:55 Dose: 40 mg Documented By: MICHAEL Hydromorphone HCl (Hydromorphone Hcl 0.5 Mg/0.5 Ml Syringe) 0.25 mg IVPUSH Q3H PRN; Protocol PRN Reason: Pain, Severe (Pain Scale 7-10) Last Admin: 04/08/22 21:33 Dose: 0.25 mg Documented By: ANALIA Lidocaine (Lidocaine 4 % Patch Adh..Patch) 1 patch TRANSDERMA DAILY [facility]; Protocol Last Admin: 04/08/22 12:49 Dose: 1 patch Documented By: MICHAEL Omeprazole (Omeprazole 20 Mg Capsule.) 20 mg PO DAILY@0630 [facility] Last Admin: 04/09/22 06:10 Dose: 20 mg Documented By: DUSTY Ondansetron HCl (Ondansetron Hcl 4 Mg/2 Ml Vial) 4 mg IVPUSH Q8H PRN PRN Reason: Nausea Last Admin: 03/31/22 21:07 Dose: 4 mg Documented By: LILY Pharmacy Consult (Consult Rx Perform Med Rec) 1 each MISCELLANE ONCE PRN PRN Reason: Consult order Zolpidem Tartrate (Zolpidem Tartrate 5 Mg Tablet) 5 mg PO BEDTIME PRN PRN Reason: Insomnia Last Admin: 04/08/22 21:32 Dose: 5 mg Documented By: ANALIA Labs CBC & Chem 7: 04/04/22 13:30 04/06/22 05:41 Procedures Date of Service Date of Service: 04/09/22 Progress Note: A&P Assessment and plan (1) Postoperative ileus: Status: Acute (2) Colon carcinoma: Status: Acute (3) Chronic restrictive lung disease: Status: Acute (4) Acute urinary retention: Status: Acute (5) Emphysema lung: Status: Acute Plan Awaiting placement Patient can have a regular diet ad feliz Dr. Jarvis to assume care 04/10/2022 Time Spent With Patient Time: Total time spent is greater than 50% in coordination of care (as documented) at patient's floor/unit and/or counseling patient: Quality Stroke Does the patient have a stroke diagnosis?: No VTE Prior VTE?: No VTE Risk Level:: Medical - moderate - high VTE Device Contraindication: N/A - Device Ordered VTE Drug Contraindication: N/A - Med Ordered
[2022-04-09 15:48] VITALS: BP 123/60; PULSE 95; RESP 17; TEMP 36.6; O2SAT 95
[2022-04-09 19:04] VITALS: BP 103/77; PULSE 100; RESP 18; TEMP 36.2; O2SAT 95
[2022-04-09] MEDS: Acetaminophen 325 MG TABLET 650 MG PO (19:26)
[2022-04-09] MEDS: HYDROmorphone HCl 0.5 MG/0.5 ML SYRINGE 0.25 MG IVPUSH (21:43)
[2022-04-09] MEDS: Zolpidem Tartrate 5 MG TABLET PO (21:44)
[2022-04-09 23:36] VITALS: BP 123/55; PULSE 95; RESP 18; TEMP 36.4; O2SAT 94
[2022-04-10 03:24] VITALS: BP 103/59; PULSE 90; RESP 18; TEMP 36.1; O2SAT 94
[2022-04-10] MEDS: Omeprazole 20 MG CAPSULE.DR PO (06:05)
[2022-04-10 07:37] VITALS: BP 112/63; PULSE 18; RESP 18; TEMP 36.4; O2SAT 94
[2022-04-10] MEDS: Ferrous Sulfate 324 MG TABLET.DR PO (07:49)
[2022-04-10] MEDS: Furosemide 40 MG TABLET PO (07:49)
[2022-04-10] MEDS: Lidocaine 4 % Patch ADH..PATCH 1 PATCH TRANSDERMA (07:49)
[2022-04-10] MEDS: HYDROmorphone HCl 0.5 MG/0.5 ML SYRINGE 0.25 MG IVPUSH (10:54)
--- NOTE | 2022-04-10 11:11 | MHC.CLN ---
F/U DIET=REGULAR. BLAND DISCONTINUED PER PATIENT REQUEST. POOR INTAKE X 1 DAY, WITH MOST RECENT INTAKE 0-50%. CONTINUE ENSURE TID DUE TO VARIABLE INTAKE. PROVIDES ADDITIONAL 1050 KCALS, 60 G PROTEIN. MONITOR PO INTAKE AND TOLERANCE CLOSELY.
[2022-04-10 11:17] VITALS: BP 110/63; PULSE 96; RESP 18; TEMP 36.7; O2SAT 93
[2022-04-10 11:30] VITALS: BP 110/63; PULSE 96; O2SAT 93
--- NOTE | 2022-04-10 12:37 | MHC.CM.PN ---
Pt remains medically cleared for d/c to str pending PICC line removal and neg Covid, Action for BLS transport.
[2022-04-10 13:41] LABS: COVID-19 Test Negative (Negative); IDNOW Serial# 16C4AD1C
== END 2022-04-10 17:24 | DRG 394 ==
LOC: HO.ED 16:40 → HO.EDOVER 18:02 → HO.S3 18:18
PROVIDERS: Family Medicine; Student in an Organized Health Care Education/Training Program; Surgery; Admitting Provider Surgery; Emergency Provider Emergency Medicine; PCP Nurse Practitioner Family; Visit Provider Surgery
DX: K91.89 Other postprocedural complications and disorders of digestive system (principal); C18.9 Malignant neoplasm of colon, unspecified; I50.32 Chronic diastolic (congestive) heart failure; K56.7 Ileus, unspecified; I11.0 Hypertensive heart disease with heart failure; Y83.8 Other surgical procedures as the cause of abnormal reaction of the patient, or of later complication, without mention of misadventure at the time of the procedure; K21.9 Gastro-esophageal reflux disease without esophagitis; N32.3 Diverticulum of bladder; R33.9 Retention of urine, unspecified; J43.9 Emphysema, unspecified; R91.1 Solitary pulmonary nodule; D50.9 Iron deficiency anemia, unspecified; D63.0 Anemia in neoplastic disease; Z85.3 Personal history of malignant neoplasm of breast; Z20.822 Contact with and (suspected) exposure to COVID-19; Z93.3 Colostomy status; Z92.3 Personal history of irradiation; Z87.891 Personal history of nicotine dependence; Z88.8 Allergy status to other drugs, medicaments and biological substances; Z79.899 Other long term (current) drug therapy
CPT/HCPCS: 36415; 36573; 71045; 74018; 74176; 74177; 76937; 80048; 80053; 81001; 82040; 82607; 82728; 82746; 83540; 83605; 83690; 83735; 83880; 84100; 84478; 85014; 85018; 85025; 85027; 86850; 86870; 86885; 86900; 86901; 86902; 86905; 86920; 86922; 87040; 87635; 93005; 96361; 96374; 96375; 97110; 97163; 97530; 99285; C1751; C1758; J0610; J1170; J1200; J2270; J2405; J2543; J3475; P9016; Q9967

== ENCOUNTER → 2022-04-20 12:56 | Outpatient (BNVA) | payer MEDICARE, SELFPAY | PROVIDERS: PCP Nurse Practitioner Family; Visit Provider Surgery | DX: Z98.890 Other specified postprocedural states (principal); C18.2 Malignant neoplasm of ascending colon | CPT/HCPCS: 99212 ==

== ENCOUNTER → 2022-05-18 09:24 | Outpatient (BNVA) | payer MEDICARE, SELFPAY | PROVIDERS: PCP Nurse Practitioner Family; Visit Provider Surgery | DX: Z48.3 Aftercare following surgery for neoplasm (principal); C18.9 Malignant neoplasm of colon, unspecified; Z93.2 Ileostomy status | CPT/HCPCS: 99212 ==

== ENCOUNTER → 2022-06-22 09:29 | Outpatient (BNVA) | payer MEDICARE, SELFPAY | PROVIDERS: PCP Nurse Practitioner Family; Visit Provider Surgery | DX: C18.9 Malignant neoplasm of colon, unspecified (principal); Z93.2 Ileostomy status | CPT/HCPCS: 99212 ==

== ENCOUNTER 2022-06-30 10:07 | Outpatient (REF) | payer MEDICARE, SELFPAY ==
--- NOTE | ~2022-06-30 | CT_ITS ---
EXAMINATION: CT CHEST WITHOUT CONTRAST CLINICAL INFORMATION: Follow-up pulmonary nodule COMPARISON: Previous chest CTA February 2022 and chest x-ray February 2022 TECHNIQUE: Multidetector volumetric CT imaging of the chest was done. Axial MIP volume rendering provided. Sagittal and coronal reformatted images were obtained. This CT examination was performed using dose optimization techniques as appropriate, variously including the following: *Automated exposure control *Adjustment of mA and/or kV according to patient size (this includes techniques or standardized protocols for targeted exams where dose is matched to indication/reason for exam; i.e. extremities or head) *Use of iterative reconstruction technique DLP: 100 mGy-cm FINDINGS: LUNGS: There is evidence of severe emphysema. There is biapical pleural and parenchymal scarring, left greater than right. There is a 5 mm left upper lobe nodule axial image 105 series 5. Stable. There is a 4 mm right upper lobe nodule axial image 107 series 5. Stable. There are small peripheral or subpleural left upper lobe nodules axial image 131 series 5 measuring 2 to 3 mm series 5. Stable. There is a 3 mm right upper lobe nodule axial image 131 series 5 probably representing mucous plugging. There is a small peripheral or subpleural nodule adjacent to the superior segment of the right lower lobe and posterior segment of the right upper lobe and major fissure axial image 131 series 5. This is increased. There is linear scarring seen in the anterior right upper lobe axial image 179 series 5. There is a 3 mm right upper lobe nodule axial image 207 series 5. Stable. There is a 4 mm heterogeneous partially groundglass attenuation partially solid left upper lobe nodule axial image 219 series 5. New There is an irregularly-shaped 6 mm left upper lobe nodule axial image 227 series 5. Stable There are increased peripheral reticular markings in the anterior right upper lobe and probably related to previous chest wall radiation. There are 2 small left upper lobe 2 and 3 mm nodules axial image 319 and 311 series 5. New. There is a calcified left lower lobe 3 mm nodule axial image 377 series 5. Stable. There is a noncalcified 5 mm right lower lobe nodule axial image 408 series 5. Stable MEDIASTINUM: Moderate-sized esophageal hernia. Normal heart size. No pericardial effusion. Normal caliber thoracic aorta. Small mediastinal lymph nodes. Small calcified left hilar and subcarinal mediastinal lymph nodes suggestive of old granulomatous disease. There are small lower cervical lymph nodes bilaterally. CORONARY ARTERY CALCIFICATION: None visualized on this study. PLEURA: There is no pleural effusion. No pleural mass or thickening. AXILLA: There are bilateral axillary lymph nodes. These do not appear enlarged but are increased in size and number compared to previous exam. There are surgical clips in the right axilla. No chest wall mass. UPPER ABDOMEN: Calcifications in the spleen and liver likely related to old granulomatous disease. OSSEOUS STRUCTURES: Degenerative changes of the spine and increased kyphosis. CT/CT chest wo IV con IMPRESSION: Several new left upper lobe nodules largest measuring 4 mm. Severe emphysema. Moderate size esophageal hernia. Increasing bilateral axillary lymphadenopathy. Fleischner guidelines were followed.
== END 2022-06-30 10:08 | disposition home or self-care (01) ==
LOC: HO.CT 10:07
PROVIDERS: PCP Nurse Practitioner Family; Visit Provider Hospitalist
DX: R91.1 Solitary pulmonary nodule (principal)
CPT/HCPCS: 71250

== ENCOUNTER → 2022-08-02 09:19 | Outpatient (BNVA) | payer MEDICARE, SELFPAY | PROVIDERS: PCP Nurse Practitioner Family; Visit Provider Hospitalist | DX: J44.9 Chronic obstructive pulmonary disease, unspecified (principal); R06.00 Dyspnea, unspecified; R91.1 Solitary pulmonary nodule | CPT/HCPCS: 99212 ==

== ENCOUNTER 2022-08-24 08:57 | Outpatient (REF) | payer MEDICARE, SELFPAY ==
--- NOTE | ~2022-08-24 | CT_ITS ---
EXAMINATION: CT ABDOMEN AND PELVIS WITH CONTRAST CLINICAL INFORMATION: Follow-up colon cancer. COMPARISON: 03/22/2022 and 03/07/2022. TECHNIQUE: Multidetector volumetric images were obtained from the superior aspect of the liver through the pubic symphysis following administration 85 mL of Omnipaque 350 intravenous contrast. Sagittal and coronal reformatted images were obtained on the technologist's workstation. Oral contrast: Yes This CT examination was performed using dose optimization techniques as appropriate, variously including the following: *Automated exposure control *Adjustment of mA and/or kV according to patient size (this includes techniques or standardized protocols for targeted exams where dose is matched to indication/reason for exam; i.e. extremities or head) *Use of iterative reconstruction technique DLP: 362 mGy-cm FINDINGS: LUNG BASES: There are changes of centrilobular emphysema seen bilaterally. No pleural or pericardial effusion. There is a moderate-sized hiatal hernia present. LIVER, GALLBLADDER, AND BILIARY TREE: The liver is normal in size, shape, and attenuation. No biliary ductal dilatation is present. There is question of a 5 mm low-density lesion within segment 3 of the liver on image 17 of 78 in series #2. With contrast and due to its size I cannot determine whether this may represent a simple cyst or not. This was present on study of 03/19/2022 and 03/07/2022. Calcified granuloma seen within segment 2. There is layering of increased density material within the gallbladder consistent with either layering of sludge or small calculi. No gallbladder wall thickening, or obvious pericholecystic inflammatory changes. PANCREAS: No suspicious mass or peripancreatic inflammatory change. SPLEEN: Calcified splenic granulomas present. ADRENAL GLANDS: Unremarkable. KIDNEYS AND URETERS: Bilateral cortical and parapelvic cysts are seen bilaterally. There is what appears be a cyst adjacent to fat density region upper pole of the right kidney which may represent a region of infarct or angiomyolipoma. Within the interpolar region of the right kidney there is a cortical and exophytic approximately 1.3 x 1 cm lesion with calcification which represents a complex cyst on previous noncontrasted study of March 22, 2022 when it had water density measurements. No evidence of obstructive uropathy. BLADDER: Unremarkable. GASTROINTESTINAL TRACT: No dilated loops of bowel are evident. No free air or free fluid is seen. Patient is status post right hemicolectomy with ileostomy and colostomy about the right abdomen. There is diverticulosis of the sigmoid colon. ABDOMINAL WALL: Colostomy and ileostomy. No parastomal hernia. No umbilical hernia. LYMPH NODES: There are numerous prominent but not pathologically enlarged lymph nodes along the iliac chains bilaterally right greater than left, in the para-aortic region, and within the mesentery. VASCULAR: Moderate aortoiliac calcified plaque. No abdominal aortic aneurysm. PELVIC VISCERA: No abnormal pelvic mass appreciated. OSSEOUS STRUCTURES: No suspicious destructive bony lesions identified. There is grade 1 spondylolisthesis L5-S1 with facet arthropathy bilaterally. CT/CT abdomen pelvis w IV con IMPRESSION: 5 mm segment 3 low-density lesion. Cholelithiasis without evidence of acute cholecystitis. Numerous bilateral cortical and parapelvic renal cysts with complex cyst with calcifications within the right kidney. Diffuse prominent but not pathologically enlarged abdominal and pelvic lymph nodes as described. Moderate-sized hiatal hernia. Fleischner guidelines were followed.
[2022-08-24] MEDS: Barium Sulfate Oral (Vanilla) 450 ML ORAL.SUSP 900 ML PO (11:12)
== END 2022-08-24 08:58 | disposition home or self-care (01) ==
LOC: HO.CT 08:57
PROVIDERS: PCP Nurse Practitioner Family; Visit Provider Internal Medicine Medical Oncology
DX: C18.9 Malignant neoplasm of colon, unspecified (principal)
CPT/HCPCS: 74177

== ENCOUNTER → 2022-09-07 11:22 | Outpatient (BNVA) | payer MEDICARE, SELFPAY | PROVIDERS: PCP Nurse Practitioner Family; Visit Provider Surgery | DX: C18.9 Malignant neoplasm of colon, unspecified (principal) | CPT/HCPCS: 99212 ==

== ENCOUNTER → 2022-10-25 10:41 | Outpatient (BNVA) | payer MEDICARE, SELFPAY | PROVIDERS: PCP Nurse Practitioner Family; Visit Provider Surgery | DX: C18.9 Malignant neoplasm of colon, unspecified (principal) | CPT/HCPCS: 99212 ==

== ENCOUNTER 2023-01-04 08:00 | Outpatient (RCR) | payer MEDICARE, SELFPAY ==
[2022-11-30 07:58] VITALS: BP 110/78
--- NOTE | 2022-11-30 10:02 | MHC.PT.EP ---
[facility] [place] Office [place] Office [place] Office [address] [place] [address] Dr Yanet Melara [address] [phone] F: [phone] F: [phone] F: [phone] F: [phone] Physical Therapy Plan of Care Date of Evaluation: Date of Surgery: Diagnosis: vertigo Assessment: 82 y/o F referred to PT with vertigo. She reports room-spinning dizziness that lasts < 30seconds with rolling in bed to the L and with getting into bed for the past two months. SHe is now cautious with rolling and avoids lying on her left side. PMH significant for colon CA, ileostomy, breast CA in remission, R shoulder fx 2020 (still painful), osteoporosis, and torticollis. Examination shows limited R cervical rotation, impaired posture, impaired gait pattern, (-) seated VBI test, and (+) L Iker Hallpike with nystagmus and sx. She presents with L PC BPPV and recommend PT 2-3x/week for 4 weeks to address impairments, implement HEP, and optimize functional mobility. Frequency and Duration: The patient will be seen 2x/week for 4 weeks Short Term Goals: Pt to be educated on sx and indications to return to therapy when needed in 4 weeks [facility] Goals: Pt will be (-) for nystagmus of reports of vertigo in all diagnostic directions B to resolutions of BPPV in 4 weeks Tolerate position changes without complaints vertigo to improve safety and return to pre-onset level Pt to be able to functionally move in all planes without provocation of dizziness and return to PLOF in 4 weeks Treatment Plan: Modalities to reduce pain, spasms and effusion. Manual therapy to restore motion and function. Therapeutic exercise to improve strength and flexibility. Neuromuscular re-education for posture and balance. Therapeutic activities to return to functional activities of daily living. Electronically signed by: Evelyn Allison PT Please sign and return to therapist. Thank you for your referral.
--- NOTE | 2023-02-05 07:34 | MHC.PT.DC ---
[facility] [place] Office [place] Office [place] Office [address] Yanet Melara [address] [phone] F: [phone] F: [phone] F: [phone] F: [phone] Physical Therapy Discharge Report Diagnosis: vertigo Date of Surgery: Date of Evaluation: 11/30/22 Date of Discharge: 02/05/23 Treatments to Date: 4 Cancellations to Date: 0 No Shows to Date: 0 Discharge Status: Improved Function Independent with HEP Discharge Summary: Chart was held for 30 days in case of recurrence of BPPV and now will close chart. At last visit, pt tested negative for BPPV in all positions. Electronically signed by: Evelyn Allison PT Please sign and return to therapist. Thank you for your referral.
== END 2023-02-05 07:34 | disposition home or self-care (01) ==
LOC: HO.PT 08:00
PROVIDERS: PCP Nurse Practitioner Family; Visit Provider Internal Medicine Medical Oncology
DX: H81.4 Vertigo of central origin (principal)
CPT/HCPCS: 95992; 97112; 97140; 97162

== ENCOUNTER → 2023-01-25 08:52 | Outpatient (BNVA) | payer MEDICARE, SELFPAY | PROVIDERS: PCP Nurse Practitioner Family; Visit Provider Surgery | DX: Z85.038 Personal history of other malignant neoplasm of large intestine (principal) | CPT/HCPCS: 99212 ==

== ENCOUNTER 2023-02-08 07:50 | Outpatient (REF) | payer MEDICARE, SELFPAY ==
--- NOTE | ~2023-02-08 | CT_ITS ---
EXAMINATION: CT CHEST, ABDOMEN AND PELVIS WITH CONTRAST CLINICAL INFORMATION: Follow up colon cancer with pulmonary nodules. COMPARISON: CT abdomen/pelvis 08/24/2022, CT chest 06/30/2022. TECHNIQUE: Multidetector volumetric imaging was performed from the thoracic inlet through the pubic symphysis following administration of 85 mL Omnipaque 350. In addition to the above scan, a 5-minute delayed scan was also obtained of the abdomen and sagittal and coronal reformatted images were obtained on the technologist's workstation. This CT examination was performed using dose optimization techniques as appropriate, variously including the following: *Automated exposure control *Adjustment of mA and/or kV according to patient size (this includes techniques or standardized protocols for targeted exams where dose is matched to indication/reason for exam; i.e. extremities or head) *Use of iterative reconstruction technique DLP: 454 mGy-cm FINDINGS: There is marked motion artifact degrading detail. CHEST: Lung: Severe emphysematous changes are present throughout the lungs. 5 mm left upper lobe nodule unchanged but imaging degraded by motion artifact (5:104, compare prior 5:105). 4 mm right upper lobe nodule previously seen (prior 5:107) cannot be assessed secondary to marked motion artifact. Previously seen new 4 mm heterogeneous partially ground-glass attenuation partially solid left upper lobe nodule is unchanged (5:207, compare prior 5:218). Previously seen irregularly-shaped 6 mm left upper lobe nodule is unchanged (5:196, compare prior 5:226). Previously seen 5 mm right lower lobe subpleural nodule is unchanged (5:343, compare prior 5:409) Other smaller pulmonary nodules are unchanged. No new worrisome masses are seen. Mediastinum: The mediastinum is normal. The central vascular structures are unremarkable. No hilar or mediastinal lymphadenopathy. Pericardium/Pleura: No significant effusion. No pleural mass or thickening. Chest Wall/Axilla: Prominent bilateral axillary lymph nodes are again seen and unchanged with the largest measuring 1 cm in short axis dimension on the right (5:157) and 0.9 cm on the left (5:179). ABDOMEN/PELVIS: Peritoneal Space: No significant free air or free fluid identified. Liver, Gallbladder, Biliary Tree: The liver is enlarged at 18.2 cm in cephalocaudad dimension. Tiny 4 mm hypodensity in segment III is completely unchanged (3:22, compare prior 2:17). Calcified granuloma in the left lobe of liver unchanged. The gallbladder contains layering gallstones but is otherwise unremarkable with no evidence of gallbladder wall thickening, or obvious pericholecystic inflammatory changes. Pancreas: Unremarkable Spleen: Spleen upper limits of normal in size. Calcified granulomas are present. Adrenal Glands: Unremarkable Kidneys and Ureters: The kidneys are normal in size, shape, and attenuation. Multiple benign Bosniak class I renal cortical and parapelvic cysts are noted which require no additional imaging or follow up. Again seen is a fat density mass near the lower pole of the right kidney consistent with an angiomyolipoma. A complex Bosniak type II cyst is again seen in the right kidney with some peripheral and central calcification, unchanged when compared to the prior study (3:28). No new worrisome solid renal masses are seen. No hydronephrosis, hydroureter, or nephrolithiasis seen. No perinephric stranding. Bladder: Empty but unremarkable. Gastrointestinal Tract: Moderate-sized hiatal hernia is present. Postop changes in the colon and small bowel are unchanged with ileostomy and colostomy in the right abdomen. Colonic diverticulosis is noted in the left colon without diverticulitis. No bowel obstruction. Abdominal Wall: No significant hernia is appreciated. There is a colostomy and ileostomy described above. Lymph Nodes: Some shotty small retroperitoneal and iliac chain lymph nodes are seen but there is no retroperitoneal lymphadenopathy. Vascular: Calcific plaque present in the aorta and iliofemoral vessels without aneurysm. The IVC appears unremarkable. PELVIC VISCERA: The uterus is absent. An abnormal adnexal mass or free fluid is not seen. OSSEUS STRUCTURES: Mild degenerative changes are again noted in the spine with grade 1 anterolisthesis L5 upon S1. No bony destructive lesions are seen. CT/CT abdomen pelvis w IV con IMPRESSION: 1. Pulmonary nodules are unchanged. Some of the previously noted nodules are not well seen secondary to motion artifact. 2. No convincing evidence of metastatic disease in the abdomen or pelvis. 3. Incidental note made of unchanged tiny liver hypodensity, right renal angiomyolipoma, hiatal hernia, colonic diverticulosis, degenerative changes in the spine, hysterectomy, shotty retroperitoneal and iliac chain lymph nodes, and degenerative changes in the spine with grade 1 anterolisthesis L5 on S1. Fleischner guidelines do not apply to oncology patients.
[2023-02-08] MEDS: iohexoL 350 MG/ML 100 ML INFUS..BTL IV (09:06)
[2023-02-09 06:57] LABS: Creatinine POC 0.9 mg/dL (0.5-1.4); GFR POC > 60
== END 2023-02-08 07:51 | disposition home or self-care (01) ==
LOC: HO.CT 07:50
PROVIDERS: PCP Nurse Practitioner Family; Visit Provider Internal Medicine Medical Oncology
DX: C50.919 Malignant neoplasm of unspecified site of unspecified female breast (principal); R91.8 Other nonspecific abnormal finding of lung field
CPT/HCPCS: 71260; 74177; 82565; Q9967

== ENCOUNTER 2023-04-20 09:50 | Outpatient (AMB) | payer MEDICARE, SELFPAY ==
--- NOTE | 2023-04-20 10:14 | MHC.OFFVIS ---
Intake Vital Signs 04/20/23 10:16 Height 5 ft 5 in Weight 126 lb BMI 21.0 BP 118/70 Blood Pressure Location Lt brachial Position Sitting Pulse 90 Pulse Source Pulse Oximeter Pulse Oximetry (%) 96 Oxygen Delivery Method Room Air Intake Visit Reasons: copd Natural Resources Instructor Required: No Allergies meperidine [From Demerol] Allergy (Mild, Verified 04/20/23 10:15) VOMITING HPI HPI Comments History of Present Illness Details The patient is an 82-year-old woman with a known history of tobacco dependency in the past quit more than 30 years ago who has been developing worsening progressive dyspnea on exertion. She denies any symptoms at rest. The patient does get winded with minimal activity specially sure so on the house. Moderate severity. After resting for few minutes she does improved. Patient is not use any respiratory inhalers. Recently also she had a fall and she did fracture her proximal humerus on the right side. She has been followed closely with orthopedic surgery. During that fall back in the summer the patient did have a chest x-ray demonstrating lucency of the upper lung areas suggesting possibly some emphysema in addition to some interstitial changes at the bases in on lucency in the mediastinum likely consistent with a moderate hiatal hernia. During the visit we did go for 6 minute walk test. The patient was significantly tachycardic at rest with a heart rate of 106 beats per minute. With the ambulation the patient's heart rate did increase to about 130. Her dyspnea Sapna score worsen to about 6/10. She maintain a pulse ox around the mid 90s throughout the ambulation but, at the end of the ambulation it dropped to about 92%. at this point will further evaluate her dyspnea and her tachycardia. The patient also underwent an echocardiogram personally by me. The estimated pulmonary pressures were high normal 25 mmHg. 04/20/2023 the patient is here for a pulmonary follow-up visit. Overall the patient has been doing well from a respiratory status. Still has some shortness of breath with activity. Mild in severity. Does not use any inhalers. The patient does not require any oxygen. She did have a CT scan of the chest January 2023 demonstrating stable pulmonary nodules. Still has the moderate hiatal herni and emphysema. Will plan to follow-up January [address] scan. If the patient develops any worsening respiratory symptoms prior to that she is to call the office for an earlier assessment. [facility] Medical History Anemia B12 deficiency Bacteremia due to Gram-negative bacteria Breast cancer Chronic restrictive lung disease Colon carcinoma COPD (chronic obstructive pulmonary disease) Dyspnea Emphysema lung GERD (gastroesophageal reflux disease) History of colon cancer Hypertension Osteoporosis Postoperative ileus Pulmonary nodule Sepsis Tachycardia Wrist fracture, bilateral Surgical History H/O colectomy H/O hysterectomy with oophorectomy History of appendectomy History of cataract surgery History of laparotomy History of lumpectomy of right breast Hx of colonoscopy Hx of esophagogastroduodenoscopy Hx of lumpectomy S/P excision of lipoma Status post exploratory laparotomy Family History Mother Vaginal cancer Maternal Aunt Breast cancer Social History Household Members: None Housing: House Are you a primary home health care physician to a significant other at home: No Do you presently have visiting nurse or other home services: Yes (once a week for surgery) Alcohol intake: never Patient Tobacco Use Status: Former Tobacco user Tobacco use type: Cigarette Years Smoked: 25 years Second Hand Smoke Exposure: No Advance Directives Date on File: 03/19/22 service: No Current occupational status: retired and disabled Current occupation: rt handed Review of Systems Const Denies night sweats ENT Denies change in voice, Denies lip swelling, Denies mouth pain and Denies tongue swelling Card Denies chest pain and Reports dyspnea on exertion Resp Reports cough, Reports dyspnea on exertion and Denies wheezing GI Reports abdominal pain Musc Reports as per HPI, Reports limited range of motion and Reports muscle weakness Neuro Denies Neuro-related abnormal movements Psych Denies no additional complaints Gautam/Lymph Denies easy bleeding and Denies lymphadenopathy Aller/Immun Denies lip swelling, Denies tongue swelling and Denies wheezing Physical Exam Vital Signs: Last Vital Signs Pulse 90 04/20/23 10:16 BP 118/70 04/20/23 10:16 Pulse Ox 96 04/20/23 10:16 Oxygen Delivery Method Room Air 04/20/23 10:16 BMI result Body Mass Index 21.0 Const General: alert Neck Neck: Yes normal visual inspection, Yes full ROM and Yes no lymphadenopathy Chest Chest palpation & inspection: normal inspection of the chest Resp Auscultation: no crackles, no rales, no rhonchi, no wheezes and diminished lung sounds Cardio Rate: regular rate and tachycardic Rhythm: regular rhythm Heart sounds: S1 normal heart sound present, S2 normal heart sound present and Abnormal heart opening sounds loud S2 GI Palpation (GI): Soft to palpation and nontender Auscultation: normal bowel sounds Skin General skin exam: rashes and/or lesions noted Extrem General: No clubbing, No cyanosis and Yes edema Assessment & Plan Assessment & Plan (1) Dyspnea: Code(s): R06.00 - Dyspnea, unspecified (2) COPD (chronic obstructive pulmonary disease): Code(s): J44.9 - Chronic obstructive pulmonary disease, unspecified (3) Pulmonary nodule: Code(s): R91.1 - Solitary pulmonary nodule Plan No need for inhaler therapy pulmonary rehab repeat CT chest 01/2024 F/U 01/2024 Orders: Orders CT chest wo IV con 01/26/24 R91.1 - Solitary pulmonary nodule Coding Level of Care Code Est Pt Level 4 (48112) Diagnoses Dyspnea R06.00 COPD (chronic obstructive pulmonary disease) J44.9 Pulmonary nodule R91.1 Time Spent (min) 17
[2023-04-20 10:16] VITALS: BP 118/70; PULSE 90; O2SAT 96; BMI 21.0
== END 2023-04-20 10:35 | disposition home or self-care (01) ==
PROVIDERS: PCP Nurse Practitioner Family; Visit Provider Hospitalist
DX: R06.00 Dyspnea, unspecified (principal); J44.9 Chronic obstructive pulmonary disease, unspecified; R91.1 Solitary pulmonary nodule
CPT/HCPCS: 99214

== ENCOUNTER → 2023-04-20 09:50 | Outpatient (BNVA) | payer MEDICARE, SELFPAY | PROVIDERS: PCP Nurse Practitioner Family; Visit Provider Hospitalist | DX: J44.9 Chronic obstructive pulmonary disease, unspecified (principal); R06.00 Dyspnea, unspecified; R91.1 Solitary pulmonary nodule | CPT/HCPCS: 99212 ==

== ENCOUNTER 2023-06-17 12:07 | Inpatient (IN) | payer MEDICARE, SELFPAY ==
--- NOTE | ~2023-06-17 | CT_ITS ---
EXAMINATION: CT ABDOMEN AND PELVIS WITHOUT CONTRAST CLINICAL INFORMATION: Acute renal failure COMPARISON: CT abdomen and pelvis 02/16/2023. TECHNIQUE: Multidetector volumetric imaging was performed from the superior aspect of the liver through the pubic symphysis. Sagittal and coronal reformatted images were obtained on the technologist's workstation. This CT examination was performed using dose optimization techniques as appropriate, variously including the following: *Automated exposure control *Adjustment of mA and/or kV according to patient size (this includes techniques or standardized protocols for targeted exams where dose is matched to indication/reason for exam; i.e. extremities or head) *Use of iterative reconstruction technique DLP: 364 mGy-cm FINDINGS: LUNG BASES: Mild emphysematous changes of lung bases with hyperinflation is noted. There is a 6 mm lingular nodule medially on axial image 2/3. Mild for removal of focal thickening medial major fissure axial image 4/3. There is minimal bibasilar atelectasis. LIVER, GALLBLADDER, AND BILIARY TREE: There is mildly enlarged with multiple liver lesions seen throughout the liver the largest one there right hepatic lobe adjacent to emilia hepatis measures 2.7 cm and medial segment left hepatic lobe measures 2.7 cm. One of the lesion contains a small calcification on axial image 10/3 a few punctate microcalcifications seen in the right hepatic lobe. These are new since last exam 02/08/2023 and is suspicious for metastatic disease. No intrahepatic ductal dilatation seen. Multiple radiopaque gallstone seen in a small contracted gallbladder. No wall thickening. PANCREAS: Unremarkable. SPLEEN: The spleen is upper limits of normal with scattered calcified granulomas. ADRENAL GLANDS: Unremarkable. KIDNEYS AND URETERS: The kidneys are normal in size, shape, and attenuation. No hydronephrosis, hydroureter, or calculi seen. No perinephric stranding. There are multiple hypodense renal cysts. In addition is a moderate hydroureteronephrosis extending to mid pelvis. The exact cause of obstruction is not seen here no radiopaque calculi seen. BLADDER: The bladder is nondistended. GASTROINTESTINAL TRACT: The stomach is nondistended with a moderate-sized hiatal hernia. There is nonspecific mild mural thickening involving a few loops in the right lower pelvis. No evidence of obstruction seen. There is a right mid quadrant ileostomy. Moderate stool and diverticuli seen in transverse and descending colon without mural thickening. ABDOMINAL WALL: No significant hernia is appreciated. LYMPH NODES: Normal. VASCULAR: There is mild atherosclerotic calcification of abdominal aorta without aneurysmal dilatation. PELVIC VISCERA: Unremarkable. OSSEOUS STRUCTURES: No aggressive lytic or sclerotic process seen. Grade I anterolisthesis L5-S1. Mild degenerative disc changes L2-L3 disc level and L1-L2 disc level is noted. There is a spina bifida occulta involving S1 and S2 vertebra. Moderate degenerative arthritic changes L5-S1 disc level is noted. CT/CT abdomen pelvis wo IV con IMPRESSION: New multiple liver lesions of various sizes. Largest measuring 2.7). Right mid quadrant colostomy without any signs of obstruction. Nonspecific minimal mural thickening involving medial loops in the right mid pelvis. Descending and left transverse colonic diverticulosis without diverticulitis. Cholelithiasis. Significant right hydroureteronephrosis with dilated ureter extending into the right pelvis. No obvious etiology seen. This could be secondary to postsurgical scarring. Correlate with history. May need a nephrostomy tube. Right renal cyst No osseous bony lesion seen. Diffuse emphysema with 6 mm lingular lung nodule. Fleischner guidelines were followed.
--- NOTE | ~2023-06-17 | FL_ITS ---
EXAMINATION: XR FLUOROSCOPY WITH IMAGES CLINICAL INFORMATION: Cystoscopy special. COMPARISON: Previous CT of the abdomen and pelvis June 17, 2023 TECHNIQUE: Fluoroscopy Supervised By: Dr. Acharya. Fluoroscopy Time: 0.3 minutes. Cumulative Dose: 4.48 mGy. DAP: 0.0778 Gycm2. Images: 4. FINDINGS: Images demonstrate severe right hydronephrosis and proximal ureteral dilatation. The right distal ureter is narrowed over a long segment. There is marked irregularity of the proximal portion of this narrowed segment. Final image demonstrates a right internal ureteral stent with proximal pigtail in the right renal collecting system. FL/FL guidance in OR IMPRESSION: Fluoroscopy guidance for urology procedure
--- NOTE | ~2023-06-17 | XR_ITS ---
EXAMINATION: XR CHEST CLINICAL INFORMATION: SOB, POLANCO. COMPARISON: CT chest 06/30/2022. TECHNIQUE: Frontal view of the chest was obtained. FINDINGS: The lungs are hyperinflated but clear. The heart size and pulmonary vascularity is normal. Is mild spondylosis dorsal spine. There is small to moderate-sized hiatal hernia. XR/XR chest 1V IMPRESSION: 1. Hyperinflated lungs without acute process. 2. Small to moderate-sized hiatal hernia.
[2023-06-17 12:21] VITALS: BP 103/64; BP 114/67; PULSE 110; PULSE 98; RESP 20; O2SAT 97; O2SAT 99; BMI 17.7
--- NOTE | 2023-06-17 12:24 | ECG_ITS ---
Test Reason : SOB Blood Pressure : / mmHG Vent. Rate : 094 BPM Atrial Rate : 094 BPM P-R Int : 146 ms QRS Dur : 074 ms QT Int : 328 ms P-R-T Axes : 061 044 058 degrees QTc Int : 410 ms Normal sinus rhythm Nonspecific ST abnormality Abnormal ECG When compared with ECG of 19-MAR-2022 14:47, QT has shortened Referred By: Nayeli Pina Electronically Signed By:RICHARD SOLOMON MD
--- NOTE | 2023-06-17 12:32 | ED.SOB ---
HPI - SOB/Dyspnea General Chief Complaint: Dyspnea Stated Complaint: SOB Time Seen by Provider: 06/17/23 12:10 Source: patient, EMS and old records reviewed Mode of arrival: EMS Limitations: no limitations History of Present Illness HPI Narrative: 83 yo female with history of stage III colon cancer s/p resection February 2022 with ileostomy (deferred chemo due to weakness/age follows w/ Dr. 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 She states it has gotten progressively worse and she states she is very short of breath with minimal exertion. She denies any associated chest pain, coughing, N/V/D, abdominal pain, leg swelling. She has been feeling weak and fatigued lately. She states she has had a fever maybe 3 weeks ago but no other symptoms of infection. MD elicited complaint: shortness of breath Pertinent past history: COPD and other (cancer) Onset (ago): week(s) Context: occurred during exertion Timing: progressively worsening Severity: severe Exacerbating factors: exertion Relieving factors: rest Known history of: COPD and other (cancer) Associated symptoms: other (weakness) Treatment prior to arrival: none Related Data Home oxygen amount: none Home Medications Medication Instructions Recorded Confirmed cholecalciferol (vitamin D3) 25 25 mcg PO DAILY 06/03/20 05/22/23 mcg (1,000 unit) tablet ferrous sulfate 325 mg (65 mg 325 mg PO DAILY 06/03/20 05/22/23 iron) tablet xktnivljbwwe-lnuubqqa-mmbidu tablet 1 tab PO DAILY 06/03/20 05/22/23 tizanidine 4 mg tablet 4 mg PO BEDTIME PRN Muscle Pain 06/03/20 05/22/23 calcium carbonate 500 mg calcium 500 mg PO DAILY 03/07/22 05/22/23 (1,250 mg) tablet cyanocobalamin (vitamin B-12) 1,000 mcg IM QMONTH 03/19/22 05/22/23 1,000 mcg/mL injection solution hydrochlorothiazide 25 mg tablet 25 mg PO DAILY 10/25/22 05/22/23 Previous Rx's Medication Instructions Recorded megestrol 800 mg/20 mL (20 mL) 800 mg (20 mL) PO DAILY #600 mL 10/06/22 oral suspension omeprazole 20 mg capsule,delayed 20 mg PO BID #60 caps 06/06/23 release Allergies Allergy/AdvReac Type Severity Reaction Status Date / Time meperidine [From Demerol] Allergy Mild VOMITING Verified 06/17/23 12:48 Review of Systems Review of Systems: Yes all other systems are reviewed and are negative PMFSH Past Medical History Medical History Anemia B12 deficiency Bacteremia due to Gram-negative bacteria Breast cancer Chronic restrictive lung disease Colon carcinoma COPD (chronic obstructive pulmonary disease) Dyspnea Emphysema lung GERD (gastroesophageal reflux disease) History of colon cancer Hypertension Osteoporosis Postoperative ileus Pulmonary nodule Sepsis Tachycardia Wrist fracture, bilateral Surgical History H/O colectomy H/O hysterectomy with oophorectomy History of appendectomy History of cataract surgery History of laparotomy History of lumpectomy of right breast Hx of colonoscopy Hx of esophagogastroduodenoscopy Hx of lumpectomy S/P excision of lipoma Status post exploratory laparotomy Family History Family History Mother Vaginal cancer Maternal Aunt Breast cancer Social History Social History Household Members: None Housing: House Are you a primary memory care program resident to a significant other at home: No Do you presently have visiting nurse or other home services: Yes (once a week for surgery) Alcohol intake: never Patient Tobacco Use Status: Former Tobacco user Tobacco use type: Cigarette Years Smoked: 25 years Second Hand Smoke Exposure: No Advance Directives: Yes Advance Directives on File: Yes Advance Directives Date on File: 03/19/22 service: No Current occupational status: retired and disabled Current occupation: rt handed Physical Exam Vital Signs: Vital Signs: Last Vital Signs Pulse 98 06/17/23 14:57 Resp 18 06/17/23 14:57 BP 116/56 L 06/17/23 14:57 Pulse Ox 99 06/17/23 12:21 O2 Del Method Room Air 06/17/23 12:21 BMI result Body Mass Index 17.7 Appearance: Alert elderly, frail female sitting up in bed. Oriented X3. No acute distress. Head: normocephalic, atraumatic. Eyes: Pupils equal, round and reactive to light. ENT: Pharynx normal. No tonsillar swelling or exudate. Neck: Normal inspection. Neck supple. CVS: Normal heart rate and rhythm. Pulses normal. Respiratory: No respiratory distress. Breath sounds normal. Abdomen: Ileostomy in place w/ liquid stool, Soft and nontender. +BS x4 Skin: Skin warm and dry. Normal skin color. Normal skin turgor. No rashes. Extremities: No lower extremity edema. No joint swelling. No calf swelling or tenderness Neuro/psych: Oriented X 3. strength equal and symmetrical throughout, no sensory deficits. globally weak, nonfocal. CN II-XII intact. Normal speech and cognition. Medications Administered Discontinued Medications Generic Name Dose Route Start Last Admin Trade Name Freq PRN Reason Stop Dose Admin Calcium Gluconate 1 gm in 50 mls @ 50 mls/hr 06/17/23 14:28 06/17/23 16:07 Calcium Gluconate IV 06/17/23 15:27 Infused ONCE ONE Infusion Omeprazole 40 mg 06/17/23 14:49 06/17/23 14:58 Omeprazole 40 Mg Capsule.Dr PO 06/17/23 14:50 40 mg ONCE ONE Administration Sodium Zirconium Cyclosilicate 10 gm 06/17/23 14:28 06/17/23 14:48 Sodium Zirconium Cyclosilicate 10 Gm Powd.Pack PO 06/17/23 14:29 10 gm ONCE ONE Administration Medical Decision Making Medical Decision Making MDM Narrative: 83 yo female with history of stage III colon cancer s/p resection February 2022 with ileostomy (deferred chemo due to weakness/age follows w/ Dr. 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 VSS on arrival. SpO2 99% on RA w/ clear lungs. No evidence of acute DVT on examination. With her cancer history initial concern was for PE. She is not hypoxic or c/o SOB at rest or having any chest pain. Age adjusted DDIMER is negative. Labs significant for acute on chronic renal failure, significantly worse than her baseline (which appears to be 1.2-1.3 aside from acute decline in Apr to 2.98) with BUN >125, SCR 5.69, bicarb 7 and K 6.1 No EKG changes. She is not altered with her significant uremia suggesting chronicity. likely pre-renal with decreased PO intake at home. her ostomy output has been the same as her baseline, no increased output. She reports normal urination at home. No back pain to suggest obstructive uropathy. CT abdomen done in january without any metastatic disease in the abdomen/pelvis. kidneys were normal in size w/ cysts. will repeat dry CT abd to ensure no obstruction Nephrology paged for recs. bicarb infusion started in the meantime, Zarco ordered along with urine studies. will plan on admission for further management - hospitalist recommending repeat labs in 4 hours to ensure improvement prior to admitting to telemetry unit. Differential Diagnosis Differential Diagnoses: The differential diagnosis associated with the presentation includes pulmonary embolism, failure to thrive, progressing cancer, PNA, LEONIE on CKD could be due to GI losses, pre-renal/dehydration, ATN, AIN Admission/Observation Consideration of admission/observation: Escalation of care including admission/observation considered Consult Healthcare Provider Management of the patient was discussed with: Hospitalist and Home Furnishings Sales Representative Dr. Santiago recommending repeat labs in 4 hours Nephrology - Dr. Cobb recommending bicarb, CT scan to r/o obstruction, repeat labs in 4 hours, will see tomorrow inpatient Lab Data MDM Lab Attestation statement: I reviewed the patient's lab results. LEONIE on CKD w/ hyperkalemia, K 6.1 without hemolysis, bicarb 7 06/17/23 14:37 06/17/23 13:15 Labs: Lab Results 06/17/23 06/17/23 06/17/23 Range/Units 13:15 14:37 14:44 WBC 12.7 H (4.8-10.8) X10*3/uL RBC 3.55 L (4.20-5.50) X10*6/uL Hgb 11.1 L (12.0-16.0) g/dl Hct 33.7 L (37.0-47.0) % MCV 94.9 (80.0-98.0) fL MCH 31.3 (27.0-33.0) pg MCHC 32.9 (31.0-35.0) g/dl RDW 14.8 (11.0-16.0) % Plt Count 278 D (160-400) X10*3/uL MPV 10.4 (9.4-12.3) fL Immature Gran % (Auto) 2.9 H (0.0-0.4) % Neut % (Auto) 86.0 H (45-73) % Lymph % (Auto) 6.0 L (20-40) % [place] % (Auto) 3.8 (2-11) % Eos % (Auto) 0.5 (0-4) % Baso % (Auto) 0.8 (0-2) % Lymph # (Auto) 0.8 L (1.2-4.9) X10*3/uL [place] # (Auto) 0.5 (0.1-1.2) X10*3/uL Eos # (Auto) 0.1 (0.0-0.4) X10*3/uL Baso # (Auto) 0.1 (0.0-0.2) X10*3/uL Abs Immat Gran (auto) 0.37 H (0.00-0.03) X10*3/uL Absolute Neuts (auto) 11.0 H (2.0-8.3) x10*3/uL Absolute Nucleated RBC 0.000 (0.0-0.012) X10*3/uL Nucleated RBC % (auto) 0.0 (0.0-0.2) /100WBC PT 14.5 H (11.1-13.3) SEC INR 1.2 H (0.9-1.1) APTT 28.6 (26.0-36.4) SEC D-Dimer High Sensitivty 309 NG/ML VBG pH 7.20 L* (7.32-7.43) VBG pCO2 25 mmHg VBG pO2 46 mmHg VBG HCO3 10 L (22-26) mmol/L VBG O2 Saturation 71.0 % VBG Base Excess -16.0 mmol/L Sodium 132 L (135-145) mmol/L Potassium 6.1 H* D (3.3-5.1) mmol/L Chloride 108 (96-108) mmol/L Carbon Dioxide 7 L* D (22-29) mmol/L Anion Gap 23 H (12-20) BUN > 125 H (9-16) mg/dL Creatinine 5.69 H* (0.5-1.4) mg/dL Estim Creat Clear Calc 5.8 Estimated GFR 7 Random Glucose 115 (60-115) mg/dL Calcium 10.5 H D (8.4-10.2) mg/dL Magnesium 2.7 H (1.6-2.6) mg/dL Total Bilirubin 0.4 (0.0-1.0) mg/dL Direct Bilirubin 0.2 (0.0-0.5) mg/dL AST 15 (5-31) U/L ALT 11 (0-31) U/L Alkaline Phosphatase 88 (39-117) U/L Troponin I High Sens 25.2 H (<3.5-17.0) ng/L B-Natriuretic Peptide 88 (<100) pg/mL Total Protein 9.0 H (6.5-8.0) g/dL Albumin 4.0 (3.5-5.0) g/dL Procalcitonin 0.43 ng/mL COVID-19 (SOFIYA) Negative (Negative) COVID-19 Clin Com See Note Independent Interpretation I performed an independent interpretation of an: EKG and Plain X-Ray Interpretation: EKG w/ normal sinus rhythm, HR 94 bpm, normal NE interval, normal QTc, NO ST segment elevations or depressions cxr w/ hyperinflated lungs c/w COPD, no infiltrate, agree w/ radiology read Radiology Impression Discussion of test interpretation with radiology: I have reviewed the radiologist's reading. Radiologist Impression: XR/XR chest 1V IMPRESSION: 1. Hyperinflated lungs without acute process. 2. Small to moderate-sized hiatal hernia. Independent Historian Clinical information obtained from an independent historian. History obtained from or confirmed by: EMS External Record Review External record reviewed: Office record, Outpatient record, Prior outpatient labs and Prior outpatient radiology Tests considered The following testing was considered but not selected: considered VQ scan however age adjusted DDIMER negative Prescription Management I considered prescription management with: Other (bicarb, IVF) Chronic Conditions Patient?s care impacted by: Other (colon cancer, breast cancer, COPD) Social Determinants Patient?s care significantly limited by Social Determinants of Health including: Problems related to primary support group and Other Social Determinant of Health Critical Care Time Critical Care Time Critical Care Time: Yes Total Critical Care Time: 48 Attestation: I have personally provided critical care time exclusive of time spent on separately billable procedures. Time includes review of lab data, radiology results, discussion with consultants, and monitoring for potential decompensation. Intervention performed as documented. Discharge Plan Discharge Clinical Impression: Acute kidney injury superimposed on CKD, Acute metabolic acidosis, POLANCO (dyspnea on exertion) Patient Disposition: Admitted As Inpatient
--- NOTE | 2023-06-17 12:56 | PC.NURSE ---
from home via ambulance, c/o sob with exertion, going on for about a month and a half. worse this morning per cousin and increase weakness and lethargy. 97% r/a on arrival to ed. currently satting 98-100% r/a. 20g iv inserted rac prior to arriving to ed. mild sob noted while talking. LSCTA. pt placed on monitor, resting quietly, no apparent distress. cousin - director of health care marketing at her bedside.
--- OUTSIDE RECORDS SUMMARY | 2023-06-17 13:15 | XMS_ITS | Patient Health Record ---
Author Name Unknown Organization [facility] Address [address] [place] [phone] Care Team Providers Care Rental Clerk [employer] Equipment Name Role Phone Kriss De Leon NP Primary Care Provider Kristofer lOsen Unavailable [phone] Daksha Davis Unavailable Unavailable ALLERGIES Allergen (clinical drug ingredient) Drug/Non Drug Allergy documented on EMR Reaction Allergy Type Onset Date Status meperidine Demerol Unknown Drug Allergy Active REASON FOR REFERRAL No Information MEDICATIONS Medication SIG (Take, Route, Frequency, Duration) Notes Start Date End Date Status Famotidine 20 MG 1 tablet at bedtime Once a day Active Cyanocobalamin every 6 weeks A ctive Zolpidem Tartrate 10 MG Oral for 20 Active Omeprazole 20 MG TAKE 1 CAPSULE BY MOUTH EVERY MORNING for 90 days Active Centrum Silver 1 1 Orally qd A ctive Calcium 500 MG 1 tablet Orally Once a day Active Botox 200 UNIT 1 Injection every three months Active hydroCHLOROthiazide 25 MG 1 tablet Orall y Once a day Active Iron (Ferrous Sulfate) 325 ( 65 Fe) MG 1 tablet Orally Once a day Active Vitamin D 1000 UNIT 1 tablet Orally Once a day Active tiZANidine HCl 4 MG 1 tablet as needed Orally every 8 hrs/prn Active IMMUNIZATIONS Vaccine Route Administration Date Status Comme nts Influenza Unknown 09/21/2020 Refused SOCIAL HISTORY Sex Assigned At : Social History Observation Description Sex Assigned At Unknown PROBLEMS Problem Type ICD Code Onset Dates Problem Status W/U Status Risk SNOMED Code Notes Problem Other iron deficiency anemia (D50.8) Active confirmed 06041223 Problem Deficiency of other specified B group vitamins (E53.8) Active confirmed 91860616 Problem B12 deficiency (E53.8) Active confirmed 827829055 Problem GERD with esophagitis (K21.0) Active confirmed 975248463 Problem Other iron deficiency anemias (D50.8) Active confirmed 23083780 Problem Chronic fatigue (R53.82) Active confirmed 42118401 Problem Pharyngoesophageal dysphagia (R13.14) Active confirmed 63865822 Problem Anemia due to other cause, not classified (D64.89) Active confirmed Anemia (48406241 0) Problem Hiatal hernia (K44.9) Active confirmed Hiatal hernia (55639670) Problem History of colon cancer (Z85.038) Active confirmed History of malignant neoplasm of colon (049649933) Problem GERD (gastroesophageal reflux disease) (K21.9) Active confirmed Gastroesophagea l reflux disease (182808668) Encounters Encounter Location Date Provider Diagnosis [facility] [address] [place] [phone] 08/02/2022 Kristofer Camarena B12 deficiency E53.8 [facility] [address] [place] [phone] 11/30/2022 Kristofer Camarena B12 deficiency E53.8 [facility] [address] [place] [phone] 01/25/2023 Kristofer Camarena B12 deficiency E53.8 and Deficiency of other specified B group vitamins E53.8 [facility] [address] [place] [phone] 04/20/2023 Kristofer Camarena B12 deficiency E53.8 [facility] [address] [place] [phone] 05/31/2023 Kristofer Camarena B12 deficiency E53.8 [facility] [address] [place] [phone] 07/10/2022 Kristofer Camarena [facility] [address] [place] [phone] 05/21/2023 Kristofer Camarena [facility] [address] [place] [phone] 06/01/2023 Kristofer Camarena ASSESSMENTS Encounter Date Diagnosis Assessment Notes Treatment Notes Treatment Clinical Notes 08/02/2022 B12 deficiency (ICD-10 - E53.8) 11/30/2022 B12 deficiency (ICD-10 - E53.8) 01/25/2023 B12 deficiency (ICD-10 - E53.8) 04/20/2023 B12 deficiency (ICD-10 - E53.8) 05/31/2023 B12 deficiency (ICD-10 - E53.8) 01/25/2023 Deficiency of other specified B group vitamins (ICD-10 - E53.8) PLAN OF TREATMENT Pending Test Test Name Order Date T4 (THYROXINE) 08/16/2017 TSH (THYROID STIMULATING HORMONE) 2016 IRON + IBC (FE) 05/16/2016 IRON + IBC (FE) 10/10/2016 IRON + IBC (FE) 08/16/2017 FERRITIN 05/16/2016 FERRITIN 10/10/2016 FERRITIN 08/16/2017 VITAMIN B12 AND FOLATE 05/16/2016 VITAMIN B12 AND FOLATE 10/10/2016 B12 08/16/2017 CBC w DIFF 10/10/2016 CBC w DIFF 08/16/2017 CBC w DIFF 05/16/2016 CELIAC PANEL #10 05/16/2016 XR BARIUM SWALLOW-ESOPHAGUS 10/05/2017 Future Test Test Name Order Date UPPER GI ENDOSCOPY 05/16/2016 COLONOSCOPY 05/16/2016 UPPER GI ENDOSCOPY 06/15/2020 Insurance Providers Payer Name Payer Address Payer Phone Subscriber Number Group Number Insured Name Patient Relationship to Insured Coverage Start Date Coverage End Date MEDICARE OF [place] [address] [place] [address] [id number] CAMPBELL GARCIA Self - patient is the insured [employer] ATT[employer] CLAIMS [address] [place] [address] [id number] CAMPBELL GARCIA Self - patient is the insured [address] [id number] CAMPBELL GARCIA Self - patient is the insured MEDICATIONS ADMINISTERED Medication Instructions Date of Administration Dosage Notes B-12 05/26/2016 1000 ug B-12 05/31/2016 1000 ug B-12 06/06/2016 1000 ug B-12 07/07/2016 1000 ug B-12 08/08/2016 1000 ug B-12 09/08/2016 1000 ug B-12 10/10/2016 1000 ug B-12 11/10/2016 1000 ug B-12 12/12/2016 1000 ug B-12 01/09/2017 1000 ug B-12 02/07/2017 1000 ug B-12 03/09/2017 1000 ug B12 04/12/2017 1000 ug B-12 05/11/2017 1000 ug B-12 06/19/2017 1000 ug B-12 07/12/2017 1000 ug B12 08/16/2017 1000 ug B-12 09/19/2017 1000 ug B-12 11/20/2017 1000 ug B-12 01/01/2018 1000 ug B-12 02/20/2018 1000 ug B-12 04/10/2018 1000 ug B-12 06/13/2018 1000 ug B-12 07/31/2018 1000 ug B-12 09/13/2018 1000 ug B-12 01/15/2019 1000 ug B-12 02/26/2019 1000 ug B-12 04/30/2019 1000 ug B-12 06/11/2019 1000 ug B12 11/25/2019 1000 ug B-12 02/04/2020 1000 ug B12 02/04/2020 1000 ug B12 04/30/2020 1000 ug B12 06/15/2020 1000 ug B12 09/21/2020 1000 ug B-12 12/03/2020 1000 ug B12 02/18/2021 1000 ug B-12 03/31/2021 1000 ug B12 05/27/2021 1000 ug B-12 07/08/2021 1000 ug B-12 08/16/2021 1000 ug B-12 10/10/2021 1000 ug B-12 01/18/2022 1000 ug B-12 06/08/2022 1000 ug B12 08/02/2022 1000 ug B-12 11/30/2022 1000 ug B-12 01/25/2023 1000 ug B12 04/20/2023 1000 ug B-12 05/31/2023 1000 ug B-12 10/10/2016 1000 ug MEDICAL (GENERAL) HISTORY Medical History History ICD Code 05/12/2008 screening colonos copy--hyperplastic polyps, diverticulosis, internal hemorrhoids Denies [place],DM,CVA,Lung disease,renal dise ase Right-sided breast cancer--lumpectomy x2 and XRT--2009 and 2010 HTN On Botox injections for spo ndylosis torticollis from a neurologist, Dr. Handley, in [place] Anemia--Iron and B12 deficie ncy--EGD in 05/2016--large HH and esophagitis-duodenal biopsies were negative for celiac disease-colonoscopy was negative except for diverticulosis and internal hemorrhoids GERD---EGD 05/2016--large HH , esophagitis--tiny area of Mclain's--no dysplasia Recurrent anemia-needed 2 u PRBC's early 05/[address] Davis--stool was Hemoccult neg. 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 She is being followed by Dr. Davis. Surgical History Surgery Date(Month/Year) RENÉE Appendectomy Lipoma removed from abdominal wall Lumpectomy x 2, right breast Cataract surgery Right colon resection with a n ileostomy due to an obstructing colon cancer in the area of the hepatic flexure with resultant cecal perforation. Multiple lymph nodes were positive. 02/2022
[2023-06-17 13:37] LABS: COVID-19 Test Negative (Negative); IDNOW Serial# 08D9AD1C
[2023-06-17 13:41] LABS: B Type Natriuretic Peptide 88 pg/mL (<100)
[2023-06-17 14:24] LABS: Alanine Aminotransferase 11 U/L (0-31); Alkaline Phosphatase 88 U/L (39-117); Anion Gap 23 (12-20); Aspartate Amino Transferase 15 U/L (5-31); Bilirubin Direct 0.2 mg/dL (0.0-0.5); Bilirubin Total 0.4 mg/dL (0.0-1.0); Blood Urea Nitrogen > 125 mg/dL (9-16); Calcium 10.5 mg/dL (8.4-10.2); Carbon Dioxide 7 mmol/L (22-29); Chloride 108 mmol/L (96-108); Creatinine Clr Calc Pharmacy 5.8; Estimated Glomerular Filt Rate 7; Glucose Random 115 mg/dL (60-115); Magnesium 2.7 mg/dL (1.6-2.6); Potassium 6.1 mmol/L (3.3-5.1); Procalcitonin 0.43 ng/mL; Sodium 132 mmol/L (135-145)
[2023-06-17 14:44] LABS: MANUAL DIFF FLAG NO
[2023-06-17 14:45] LABS: Basophils Absolute Auto 0.1 X10*3/uL (0.0-0.2); Basophils Percent Auto 0.8 % (0-2); Eosinophils Absolute Auto 0.1 X10*3/uL (0.0-0.4); Eosinophils Percent Auto 0.5 % (0-4); Hematocrit 33.7 % (37.0-47.0); Hemoglobin 11.1 g/dl (12.0-16.0); Imm Gran Abs Auto 0.37 X10*3/uL (0.00-0.03); Imm Gran Pct Auto 2.9 % (0.0-0.4); Lymphocytes Absolute Auto 0.8 X10*3/uL (1.2-4.9); Mean Corpuscular HGB Conc 32.9 g/dl (31.0-35.0); Mean Corpuscular Hemoglobin 31.3 pg (27.0-33.0); Mean Corpuscular Volume 94.9 fL (80.0-98.0); Mean Platelet Volume 10.4 fL (9.4-12.3); Monocytes Absolute Auto 0.5 X10*3/uL (0.1-1.2); Monocytes Percent Auto 3.8 % (2-11); Platelet Count 278 X10*3/uL (160-400); Red Blood Count 3.55 X10*6/uL (4.20-5.50); Red Cell Distribution Width 14.8 % (11.0-16.0); White Blood Count 12.7 X10*3/uL (4.8-10.8)
[2023-06-17] MEDS: Sodium Zirconium Cyclosilicate 10 GM POWD.PACK PO (14:48)
[2023-06-17] MEDS: Calcium Gluconate/NaCl,Iso-Osm 1 GM/50 ML PLAST..BAG IV (14:49)
[2023-06-17 14:51] LABS: INTERNATIONAL NORM RATIO 1.2 (0.9-1.1); Prothrombin Time 14.5 SEC (11.1-13.3)
[2023-06-17 14:51] LABS: VBG HCO3 10 mmol/L (22-26); VBG pCO2 25 mmHg; VBG pO2 46 mmHg
[2023-06-17 14:53] LABS: Partial Thromboplastin Time 28.6 SEC (26.0-36.4)
[2023-06-17 14:54] LABS: Venous Blood Gas Refer to POC result
[2023-06-17 14:57] VITALS: BP 116/56; PULSE 98; RESP 18
[2023-06-17] MEDS: Omeprazole 40 MG CAPSULE.DR PO (14:58)
[2023-06-17 15:03] LABS: D Dimer High Sensitivity 309 NG/ML
[2023-06-17 15:09] LABS: Troponin-I High Sensitivity 25.2 ng/L (<3.5-17.0)
--- NOTE | 2023-06-17 16:21 | MHC.EDTECH ---
@ 1428, CALL PLACED TO RENAL TO CALL BACK FOR ORTEGA GONZALES @ 1540, 2ND CALL PLACED FOR CALL BACK @ 1615, 3RD CALL PLACED FOR CALL BACK @ 1620, DR SHORE CALLED BACK AND CALL TRANSFERRED TO ORTEGA GONZALES
[2023-06-17] MEDS: Sodium Bicarbonate 8.4% 150 MEQ in Dextrose 5 % 850 ML 100 MEQ IV (16:26)
[2023-06-17 17:03] VITALS: BP 114/63; PULSE 89; RESP 22; O2SAT 98
--- NOTE | 2023-06-17 18:07 | PC.NURSE ---
16g ambrose inserted pt tolerated well. iv fluid hung as ordered. vss, denies pain. pt resting quietly, no apparent distress.
--- NOTE | 2023-06-17 19:22 | PM.IMHP ---
History of Present Illness Date of Service: 06/17/23 Attending physician on admission: Paige Gordillo Chief Complaint: SOB, POLANCO, weakness Pt is an 83-year-old female with a PMH significant for?stage III colon cancer s/p resection February 2022 with ileostomy not on chemo and followed by Dr. Davis, hx of right breast cancer in 2009, COPD, microcytic anemia, and CKD3 who presents to the ED for evaluation of shortness of breath, weakness, and anorexia. Patient states that she been very short of breath, experiencing dyspnea upon exertion, been very weak with little strength and almost no appetite for the past month. Patient says she ?kept putting off coming to the hospital again and again? despite her family requesting her to do so. They finally convinced her last night and so she presented to the hospital this morning for evaluation. Patient states she had an episode or 2 of nausea with ?dry heaves? during the past month, but nothing prolonged or significant. Denies any orthopnea. Denies any pain. No chest pain/pressure, palpitations. Denies abdominal pain. Has not noticed any lower extremity edema. Patient also denies any known episodes of confusion or altered mental status noticed by either her or her family. In the ED the patient was afebrile, with heart rate of 98, and tachypneic up to 22. Labs were significant for leukocytosis of 12.1, H&H 11.1/33.7, sodium 132, potassium 6.1, bicarb 7, BUN>125, creatinine 5.69, initial troponin 25.2. VBG originally with metabolic acidosis of pH 7.20 with bicarb 10 with repeat improved to pH of 7.28 with bicarb 13. CXR showed hyperinflated lungs without acute process, and small to moderate-sized hiatal hernia. CT?of abdomen and pelvis found new multiple liver lesions of various sizes the largest measuring 2.7 cm and also found significant right hydroureteronephrosis with dilated ureter extending into the right pelvis and a right renal cyst. No signs of bowel obstruction or diverticulitis, cholelithiasis without cholecystitis. Also found diffuse emphysema with 6 mm lingular lung nodule. EKG demonstrated normal sinus rhythm without evidence of ST elevations or depressions. Pt was treated with Lokelma and calcium gluconate, omeprazole, and started on a bicarb drip. Pt will be admitted to the hospital for treatment and further evaluation of LEONIE superimposed on CKD 3. Review of Systems Review of Systems: Shortness of breath, dyspnea upon exertion Weakness Anorexia, reduced p.o. intake A couple of episodes of nausea and vomiting Denies chest pain/pressure, palpitations No fever, chills Denies abdominal pain Yes all other systems are reviewed and are negative [facility] Medical History History of colon cancer Postoperative ileus Colon carcinoma Sepsis Bacteremia due to Gram-negative bacteria Chronic restrictive lung disease Emphysema lung Pulmonary nodule COPD (chronic obstructive pulmonary disease) Tachycardia Dyspnea GERD (gastroesophageal reflux disease) Anemia Wrist fracture, bilateral Osteoporosis Hypertension B12 deficiency Breast cancer Family History Mother Vaginal cancer Maternal Aunt Breast cancer Surgical History Status post exploratory laparotomy History of laparotomy Hx of lumpectomy S/P excision of lipoma Hx of esophagogastroduodenoscopy Hx of colonoscopy History of appendectomy H/O colectomy H/O hysterectomy with oophorectomy History of cataract surgery History of lumpectomy of right breast Social History Household Members: None Housing: House Are you a primary patient care technician instructor to a significant other at home: No Do you presently have visiting nurse or other home services: Yes (once a week for surgery) Alcohol intake: never Patient Tobacco Use Status: Former Tobacco user Tobacco use type: Cigarette Years Smoked: 25 years Smoked in Last 30 Days: No Second Hand Smoke Exposure: No Use of substances other than those prescribed or required for medical reasons: No Advance Directives: Yes Advance Directives on File: Yes Advance Directives Date on File: 03/19/22 Nutrition Risks: No Nutritional Risk service: No Current occupational status: retired and disabled Current occupation: rt handed Meds Allergies Allergy/AdvReac Type Severity Reaction Status Date / Time meperidine [From Demerol] Allergy Mild VOMITING Verified 06/17/23 12:48 Active Medications: Current Medications Acetaminophen (Acetaminophen 325 Mg Tablet) 650 mg PO Q6H PRN PRN Reason: Pain, Mild (Pain Scale 1-3) Enoxaparin Sodium (Enoxaparin Sodium 40 Mg/0.4 Ml Syringe) 40 mg SUBCUT Q24H [facility] Sodium Bicarbonate 150 meq/ (Dextrose) 1,000 mls @ 100 mls/hr IV .Q10H [facility] Last Infusion: 06/17/23 16:59 Dose: 100 mls/hr Melatonin (Melatonin 3 Mg Tablet) 6 mg PO BEDTIME PRN PRN Reason: Insomnia Ondansetron HCl (Ondansetron Hcl 4 Mg/2 Ml Vial) 4 mg IVPUSH Q8H PRN PRN Reason: Nausea and Vomiting Sodium Chloride (0.9 % Sodium Chloride Flush 3 Ml Syringe) 3 ml IVFLUSH QSHIFT [facility] Home Medications Medication Instructions Recorded Confirmed Last Taken Type cholecalciferol (vitamin D3) 25 25 mcg PO DAILY 06/03/20 05/22/23 Unknown History mcg (1,000 unit) tablet ferrous sulfate 325 mg (65 mg 325 mg PO DAILY 06/03/20 05/22/23 Unknown History iron) tablet oaqanaaxzmam-alkklsbf-eztzvq tablet 1 tab PO DAILY 06/03/20 05/22/23 Unknown History tizanidine 4 mg tablet 4 mg PO BEDTIME PRN Muscle Pain 06/03/20 05/22/23 Unknown History calcium carbonate 500 mg calcium 500 mg PO DAILY 03/07/22 05/22/23 Unknown History (1,250 mg) tablet cyanocobalamin (vitamin B-12) 1,000 mcg IM QMONTH 03/19/22 05/22/23 02/24/22 History 1,000 mcg/mL injection solution hydrochlorothiazide 25 mg tablet 25 mg PO DAILY 10/25/22 05/22/23 Unknown History Physical Exam Vital Signs and Narrative: Vital Signs: Last Vital Signs Pulse 89 06/17/23 17:03 Resp 22 H 06/17/23 17:03 BP 114/63 06/17/23 17:03 Pulse Ox 98 06/17/23 17:03 O2 Del Method Room Air 06/17/23 17:03 BMI result Body Mass Index 17.7 General: AOx3, pleasant but frail and cachectic, no acute distress Resp: Diminished but CTA bilaterally CVS: S1, S2, RRR GI: +BS, NT, no distention, ostomy in place Skin: No rash Neuro: Cranial nerves II-XII grossly intact bilaterally. Motor grossly intact bilaterally : Catheter in place Extremities: No edema Psych: Appropriate affect Results Labs 06/17/23 14:37 06/17/23 19:22 Labs: Laboratory Results - last 24 hr 06/17/23 06/17/23 06/17/23 13:15 14:37 14:44 MCV 94.9 MCH 31.3 MCHC 32.9 RDW 14.8 Plt Count 278 D MPV 10.4 Immature Gran % (Auto) 2.9 H Neut % (Auto) 86.0 H Lymph % (Auto) 6.0 L [place] % (Auto) 3.8 Eos % (Auto) 0.5 Baso % (Auto) 0.8 Lymph # (Auto) 0.8 L [place] # (Auto) 0.5 Eos # (Auto) 0.1 Baso # (Auto) 0.1 Abs Immat Gran (auto) 0.37 H Absolute Neuts (auto) 11.0 H Absolute Nucleated RBC 0.000 Nucleated RBC % (auto) 0.0 PT 14.5 H INR 1.2 H APTT 28.6 D-Dimer High Sensitivty 309 VBG pH 7.20 L* VBG pCO2 25 VBG pO2 46 VBG HCO3 10 L VBG O2 Saturation 71.0 VBG Base Excess -16.0 Anion Gap 23 H Estim Creat Clear Calc 5.8 Estimated GFR 7 Random Glucose 115 Calcium 10.5 H D Magnesium 2.7 H Total Bilirubin 0.4 Direct Bilirubin 0.2 AST 15 ALT 11 Alkaline Phosphatase 88 B-Natriuretic Peptide 88 Total Protein 9.0 H Albumin 4.0 Procalcitonin 0.43 COVID-19 (SOFIYA) Negative COVID-19 Clin Com See Note Imaging Radiologist's Impressions: Impressions Chest X-Ray 06/17/23 14:49 IMPRESSION: 1. Hyperinflated lungs without acute process. 2. Small to moderate-sized hiatal hernia. Abdomen/Pelvis CT 06/17/23 16:45 IMPRESSION: New multiple liver lesions of various sizes. Largest measuring 2.7). Right mid quadrant colostomy without any signs of obstruction. Nonspecific minimal mural thickening involving medial loops in the right mid pelvis. Descending and left transverse colonic diverticulosis without diverticulitis. Cholelithiasis. Significant right hydroureteronephrosis with dilated ureter extending into the right pelvis. No obvious etiology seen. This could be secondary to postsurgical scarring. Correlate with history. May need a nephrostomy tube. Right renal cyst No osseous bony lesion seen. Diffuse emphysema with 6 mm lingular lung nodule. Fleischner guidelines were followed. Assessment and Plan (1) Acute metabolic acidosis: Status: Acute (2) Acute kidney injury superimposed on CKD: Status: Acute Plan Pt is an 83-year-old female with a PMH significant for?stage III colon cancer s/p resection February 2022 with ileostomy not on chemo and followed by Dr. Davsi, hx of right breast cancer in 2009, COPD, microcytic anemia, and CKD3 who presents to the ED for evaluation of shortness of breath, weakness, and anorexia. Pt will be admitted to the hospital for treatment and further evaluation of LEONIE superimposed on CKD 3. Acute kidney injury superimposed on CKD 3 Initial BUN >125 and creatinine 5.69 Patient given IVF in ED with improvement to BUN 119 with creatinine 5.20 Likely prerenal, secondary to dehydration d/t reduced p.o. intake for the past month Patient given IVF in ED, will be placed on maintenance fluids Zarco placed in the ED, keep in place for now Nephrology consult Follow BMP Metabolic acidosis Initial VBG pH 7.20 with bicarb of 7 Patient placed on bicarb drip, VBG improved to pH of 7.28 with bicarb of 13 Continue bicarb drip Nephrology consult Hyperkalemia Potassium 6.1 at time of presentation with repeat WNL at 4.7 Patient asymptomatic, no EKG changes Patient given Lokelma and calcium gluconate in the ED Follow BMP Colon cancer S/P resection February 2022 with ileostomy Patient deferred chemo d/t weakness/age, followed by Dr. Davis CT of abdomen and pelvis with new multiple liver lesions of various sizes with the largest measuring 2.7 cm, likely metastasis Patient denies any abdominal pain, though has felt weak, short of breath, and had reduced appetite and p.o. intake the past month Oncology consult Elevated troponin Initial troponin 25.2 Patient asymptomatic: Denies chest pain/pressure, EKG without significant ischemic changes Leukocytosis WBC 12.7 Likely reactionary, no active sign of infection, no sepsis Tachycardia and tachypnea likely secondary to dehydration, not active infection or sepsis Follow CBC COPD Does not appear to be in acute exacerbation: Lungs diminished but CTA Continue home inhalers GERD Continue PPI HTN continue home meds Full Code Attending:? DVT Prophylaxis: Lovenox Pt will require a hospitalization of at least two nights for treatment of?LEONIE superimposed on CKD. Patient will need IVF, bicarb drip, close monitoring of labs, and specialist consultation. Time Spent With Patient Time: Total time managing care of this patient today ____ minutes. Quality Stroke Does the patient have a stroke diagnosis?: No VTE Prior VTE?: No VTE Risk Level:: Medical - moderate - high VTE Device Contraindication: Treatment Not Indicated VTE Drug Contraindication: N/A - Med Ordered
[2023-06-17 19:33] LABS: VBG Base Excess -11.9 mmol/L; VBG HCO3 13 mmol/L (22-26); VBG pCO2 27 mmHg; VBG pH 7.28 (7.32-7.43); VBG pO2 38 mmHg
[2023-06-17 19:34] LABS: Venous Blood Gas Refer to POC result
[2023-06-17] MEDS: Enoxaparin Sodium 40 MG/0.4 ML SYRINGE SUBCUT (19:46)
[2023-06-17 19:48] VITALS: PULSE 99; RESP 18
[2023-06-17 19:50] LABS: Anion Gap 21 (12-20); Calcium 9.4 mg/dL (8.4-10.2); Carbon Dioxide 12 mmol/L (22-29); Chloride 106 mmol/L (96-108); Creatinine Clr Calc Pharmacy 6.3; Estimated Glomerular Filt Rate 8; Glucose Random 118 mg/dL (60-115); Potassium 4.7 mmol/L (3.3-5.1); Sodium 134 mmol/L (135-145)
[2023-06-17 20:00] LABS: Blood Urea Nitrogen 119 mg/dL (9-16)
[2023-06-17 20:51] LABS: Creatinine Urine 162.06 mg/dL
[2023-06-17 20:58] LABS: Osmolality Urine 357 mosm/kg (373-1093)
[2023-06-17 21:17] VITALS: TEMP 36.4
--- NOTE | 2023-06-17 21:58 | PC.NURSE ---
sodium bicarb is currently infusing. order for LR is also in place. pt is a very difficult stick and unable to obtain a 2nd line. MD notified. LR infusion to be held until sodium bicarb is complete.
[2023-06-18] VITALS (7 sets, daily range): BP systolic 87–104; BP diastolic 51–58; PULSE 89–96; RESP 12–23; TEMP 36.4; O2SAT 93–98
--- NOTE | 2023-06-18 02:46 | PC.NURSE ---
colostomy appliance emptied. pt repositioned in bed. she is requesting something to help sleep. notified.
[2023-06-18] MEDS: Sodium Bicarbonate 8.4% 150 MEQ in Dextrose 5 % 850 ML 100 MEQ IV ×2 (03:41→13:23)
[2023-06-18] MEDS: Zolpidem Tartrate 5 MG TABLET PO ×2 (04:12→22:26)
--- NOTE | 2023-06-18 04:18 | PC.NURSE ---
Pt medicated per oct. Pt ca&ox4, no signs of acute distress.
[2023-06-18 05:26] LABS: Hematocrit 26.8 % (37.0-47.0); Hemoglobin 9.1 g/dl (12.0-16.0); Mean Corpuscular Hemoglobin 31.1 pg (27.0-33.0); Mean Corpuscular Volume 91.5 fL (80.0-98.0); Mean Platelet Volume 10.7 fL (9.4-12.3); Platelet Count 233 X10*3/uL (160-400); Red Blood Count 2.93 X10*6/uL (4.20-5.50); Red Cell Distribution Width 14.7 % (11.0-16.0)
[2023-06-18 05:41] LABS: Anion Gap 20 (12-20); Calcium 8.9 mg/dL (8.4-10.2); Carbon Dioxide 17 mmol/L (22-29); Chloride 102 mmol/L (96-108); Creatinine Clr Calc Pharmacy 6.4; Estimated Glomerular Filt Rate 8; Glucose Random 132 mg/dL (60-115); Potassium 4.3 mmol/L (3.3-5.1); Sodium 135 mmol/L (135-145)
[2023-06-18 05:45] LABS: Troponin-I High Sensitivity 33.6 ng/L (<3.5-17.0)
[2023-06-18 05:54] LABS: Blood Urea Nitrogen 115 mg/dL (9-16); WBC ABN SCTR FOR CBC 1
[2023-06-18 05:55] LABS: White Blood Count 9.2 X10*3/uL (4.8-10.8)
[2023-06-18 06:10] LABS: Band Neutrophils Percent 2 % (3-5); Lymphocytes Absolute Manual 0.8 X10*3/uL (1.2-4.9); Lymphocytes Percent Manual 9 % (20-40); Metamyelocytes Absolute 0.1 X10*3/uL; Metamyelocytes Percent 1 %; Monocytes Absolute Manual 0.5 X10*3/uL (0.1-1.2); Monocytes Percent Manual 5 % (2-11); Neutrophils Absolute Manual 7.6 X10*3/uL (2.0-8.3); Neutrophils Percent Manual 81 % (45-73); Promyelocytes Absolute 0.2 X10*3/uL; Promyelocytes Percent 2 %
[2023-06-18 06:11] LABS: Acanthocytes 1+ (0-2) /OIF; Platelet Estimate NORMAL (NORMAL); Platelet Morphology Comment NORMAL; RBC Morphology NOTED; Spherocytes 3+ (>5) /OIF
[2023-06-18] MEDS: Albuterol/Iprat 2.5/0.5MG 3 ML AMPUL.NEB INHALE (08:00)
[2023-06-18] MEDS: Heparin Sodium,Porcine 5,000 UNIT/ML VIAL 5000 UNIT SUBCUT ×2 (08:40→20:32)
--- NOTE | 2023-06-18 08:44 | MHC.CM.PN ---
CM ATTEMPTED TO SEE PT WHO IS CURRENTLY RECEIVING RN CARE CM TO RETURN
--- NOTE | 2023-06-18 08:50 | PHA.MEDREC ---
Pharmacy Consult ? Medication Reconciliation Pharmacy has completed the medication reconciliation.
--- NOTE | 2023-06-18 09:24 | MHC.CM.PN ---
PT REPORTS SHE LIVES ALONE AND IS INDEPENDENT WITH CARE SHE DENIES HAVING SERVICES SHE HAS A STAIR LIFT TO GET TO THE 2ND FLOOR NO DME HCP AND MOLST ON FILE PCP: JEOVANY WALLACE IMM DELIVERED DCP TBD PENDING PT EVAL, HOWEVER PTS GOAL IS TO RETURN HOME VIA PRIVATE TRANSPORT
--- NOTE | 2023-06-18 10:47 | P.PNIM_ITS ---
Subjective Subjective Date of Service: 06/18/23 Review of Systems Follow up LEONIE on CKD feeling better Physical Exam 2 Vital Signs: Vital Signs: Last Vital Signs Temp 97.6 F 06/18/23 07:14 Pulse 96 06/18/23 08:03 Resp 18 06/18/23 08:03 BP 92/53 L 06/18/23 07:14 Pulse Ox 97 06/18/23 07:14 O2 Del Method Room Air 06/18/23 07:14 BMI result Body Mass Index 17.7 Appearing in no acute distress lung sounds are clear to auscultation heart regular rate rhythm, clear S1, S2 positive bowel sounds, abdomen is soft, nontender neuro patient is alert x3, no focal deficits Objective Data Active Medications Acetaminophen (Acetaminophen 325 Mg Tablet) 650 mg PO Q6H PRN PRN Reason: Pain, Mild (Pain Scale 1-3) Albuterol/Ipratropium (Albuterol/Iprat 2.5/0.5mg 3 Ml Ampul.Neb) 3 ml INHALE RQ4H WHILE AWAKE [facility] Last Admin: 06/18/23 08:00 Dose: 3 ml Documented By: JOSEPH Albuterol/Ipratropium (Albuterol/Iprat 2.5/0.5mg 3 Ml Ampul.Neb) 3 ml INHALE Q4H PRN PRN Reason: Wheezing Heparin Sodium (Porcine) (Heparin Sodium,Porcine 5,000 Unit/Ml Vial) 5,000 unit SUBCUT Q12H [facility] Last Admin: 06/18/23 08:40 Dose: 5,000 unit Documented By: VIJAY Sodium Bicarbonate 150 meq/ (Dextrose) 1,000 mls @ 100 mls/hr IV .Q10H [facility] Last Admin: 06/18/23 03:41 Dose: 100 mls/hr Documented By: YANELY Lactated Ringer's (Lr) 1,000 mls @ 125 mls/hr IVCONT .Q8H ONE Stop: 06/18/23 10:59 Last Admin: 06/18/23 04:16 Dose: Not Given Documented By: MOON Non-Admin Reason: IV Running Melatonin (Melatonin 3 Mg Tablet) 6 mg PO BEDTIME PRN PRN Reason: Insomnia Ondansetron HCl (Ondansetron Hcl 4 Mg/2 Ml Vial) 4 mg IVPUSH Q8H PRN PRN Reason: Nausea and Vomiting Sodium Chloride (0.9 % Sodium Chloride Flush 3 Ml Syringe) 3 ml IVFLUSH QSHIFT [facility] Last Admin: 06/18/23 08:36 Dose: Not Given Documented By: VIJAY Non-Admin Reason: IV Running Zolpidem Tartrate (Zolpidem Tartrate 5 Mg Tablet) 5 mg PO BEDTIME PRN PRN Reason: Insomnia Last Admin: 06/18/23 04:12 Dose: 5 mg Documented By: NADIR Labs 06/18/23 05:02 06/18/23 05:02 Labs: Laboratory Results - last 24 hr 06/17/23 06/17/23 06/17/23 13:15 14:37 14:44 MCV 94.9 MCH 31.3 MCHC 32.9 RDW 14.8 Plt Count 278 D MPV 10.4 Immature Gran % (Auto) 2.9 H Neut % (Auto) 86.0 H Lymph % (Auto) 6.0 L [place] % (Auto) 3.8 Eos % (Auto) 0.5 Baso % (Auto) 0.8 Lymph # (Auto) 0.8 L [place] # (Auto) 0.5 Eos # (Auto) 0.1 Baso # (Auto) 0.1 Abs Immat Gran (auto) 0.37 H Absolute Neuts (auto) 11.0 H Absolute Nucleated RBC 0.000 Nucleated RBC % (auto) 0.0 Neutrophils % (Manual) Band Neutrophils % Lymphocytes % (Manual) Monocytes % (Manual) Metamyelocytes % Promyelocytes % Abs Neuts (Manual) Lymphocytes # (Manual) Monocytes # (Manual) Metamyelocytes # Promyelocytes # Platelet Estimate Plt Morphology Comment RBC Morphology Spherocytes Acanthocytes (Spur) PT 14.5 H INR 1.2 H APTT 28.6 D-Dimer High Sensitivty 309 VBG pH 7.20 L* VBG pCO2 25 VBG pO2 46 VBG HCO3 10 L VBG O2 Saturation 71.0 VBG Base Excess -16.0 Anion Gap 23 H Estim Creat Clear Calc 5.8 Estimated GFR 7 Random Glucose 115 Calcium 10.5 H D Magnesium 2.7 H Total Bilirubin 0.4 Direct Bilirubin 0.2 AST 15 ALT 11 Alkaline Phosphatase 88 B-Natriuretic Peptide 88 Total Protein 9.0 H Albumin 4.0 Procalcitonin 0.43 Urine Osmolality Ur Random Sodium Urine Creatinine COVID-19 (SOFIYA) Negative COVID-19 Clin Com See Note 06/17/23 06/17/23 06/17/23 19:22 19:27 20:32 MCV MCH MCHC RDW Plt Count MPV Immature Gran % (Auto) Neut % (Auto) Lymph % (Auto) [place] % (Auto) Eos % (Auto) Baso % (Auto) Lymph # (Auto) [place] # (Auto) Eos # (Auto) Baso # (Auto) Abs Immat Gran (auto) Absolute Neuts (auto) Absolute Nucleated RBC Nucleated RBC % (auto) Neutrophils % (Manual) Band Neutrophils % Lymphocytes % (Manual) Monocytes % (Manual) Metamyelocytes % Promyelocytes % Abs Neuts (Manual) Lymphocytes # (Manual) Monocytes # (Manual) Metamyelocytes # Promyelocytes # Platelet Estimate Plt Morphology Comment RBC Morphology Spherocytes Acanthocytes (Spur) PT INR APTT D-Dimer High Sensitivty VBG pH 7.28 L VBG pCO2 27 VBG pO2 38 VBG HCO3 13 L VBG O2 Saturation 67.0 VBG Base Excess -11.9 Anion Gap 21 H Estim Creat Clear Calc 6.3 Estimated GFR 8 Random Glucose 118 H Calcium 9.4 D Magnesium Total Bilirubin Direct Bilirubin AST ALT Alkaline Phosphatase B-Natriuretic Peptide Total Protein Albumin Procalcitonin Urine Osmolality 357 L Ur Random Sodium 58.0 Urine Creatinine 162.06 COVID-19 (SOFIYA) COVID-19 Clin Com 06/18/23 05:02 MCV 91.5 MCH 31.1 MCHC 34.0 RDW 14.7 Plt Count 233 MPV 10.7 Immature Gran % (Auto) Cancelled Neut % (Auto) Cancelled Lymph % (Auto) Cancelled [place] % (Auto) Cancelled Eos % (Auto) Cancelled Baso % (Auto) Cancelled Lymph # (Auto) Cancelled [place] # (Auto) Cancelled Eos # (Auto) Cancelled Baso # (Auto) Cancelled Abs Immat Gran (auto) Cancelled Absolute Neuts (auto) Cancelled Absolute Nucleated RBC 0.000 Nucleated RBC % (auto) 0.0 Neutrophils % (Manual) 81 H Band Neutrophils % 2 L Lymphocytes % (Manual) 9 L Monocytes % (Manual) 5 Metamyelocytes % 1 Promyelocytes % 2 Abs Neuts (Manual) 7.6 Lymphocytes # (Manual) 0.8 L Monocytes # (Manual) 0.5 Metamyelocytes # 0.1 Promyelocytes # 0.2 Platelet Estimate NORMAL Plt Morphology Comment NORMAL RBC Morphology NOTED Spherocytes 3+ (>5) Acanthocytes (Spur) 1+ (0-2) PT INR APTT D-Dimer High Sensitivty VBG pH VBG pCO2 VBG pO2 VBG HCO3 VBG O2 Saturation VBG Base Excess Anion Gap 20 Estim Creat Clear Calc 6.4 Estimated GFR 8 Random Glucose 132 H Calcium 8.9 Magnesium Total Bilirubin Direct Bilirubin AST ALT Alkaline Phosphatase B-Natriuretic Peptide Total Protein Albumin Procalcitonin Urine Osmolality Ur Random Sodium Urine Creatinine COVID-19 (SOFIYA) COVID-19 Clin Com Assessment and Plan (1) Acute metabolic acidosis: Status: Acute (2) Acute kidney injury superimposed on CKD: Status: Acute Plan Pt is an 83-year-old female with a PMH significant for?stage III colon cancer s/p resection February 2022 with ileostomy not on chemo and followed by Dr. Davis, hx of right breast cancer in 2009, COPD, microcytic anemia, and CKD3 who presents to the ED for evaluation of shortness of breath, weakness, and anorexia. Pt will be admitted to the hospital for treatment and further evaluation of LEONIE superimposed on CKD 3. Acute kidney injury superimposed on CKD 3, slowly trending down creatinine 5.17 Likely prerenal, secondary to dehydration d/t reduced p.o. intake for the past month Right sided hydronephrosis noted, consult urology Zarco cath for fluid management Nephrology consult pending Follow BMP Metabolic acidosis. resolved Initial VBG pH 7.20 with bicarb of 7 Patient placed on bicarb drip, VBG improved Continue bicarb drip Nephrology consult pending Hyperkalemia. Resolved Potassium 6.1 at time of presentation Patient asymptomatic, no EKG changes Patient given Lokelma and calcium gluconate in the ED Follow BMP Colon cancer S/P resection February 2022 with ileostomy Patient deferred chemo d/t weakness/age, followed by Dr. Davis CT of abdomen and pelvis with new multiple liver lesions of various sizes with the largest measuring 2.7 cm, likely metastasis Patient denies any abdominal pain, though has felt weak, short of breath, and had reduced appetite and p.o. intake the past month Oncology consult pending Elevated troponin Initial troponin 25.2 Patient asymptomatic: Denies chest pain/pressure, EKG without significant ischemic changes Leukocytosis. Resolved WBC initially 12.7 Likely reactionary, no active sign of infection, no sepsis Tachycardia and tachypnea likely secondary to dehydration, not active infection or sepsis Follow CBC COPD Does not appear to be in acute exacerbation Continue home inhalers GERD Continue PPI HTN continue home meds Full Code Attending:?Dr. Guzman DVT Prophylaxis: Heparin continue hopsital stay for treatment of?LEONIE superimposed on CKD. Patient will need IVF, bicarb drip, close monitoring of labs, and specialist consultation. Time Spent With Patient Time: Total time managing care of this patient today ____ minutes. Quality Stroke Does the patient have a stroke diagnosis?: No VTE Prior VTE?: No VTE Risk Level:: Medical - moderate - high VTE Device Contraindication: Treatment Not Indicated VTE Drug Contraindication: N/A - Med Ordered
--- NOTE | 2023-06-18 12:20 | P.EN_ITS ---
Event Note Date of Service: 06/18/23 Event Note: Event Note: Pt seen and examined Full consult to follow LEONIE - Renal hypoperfusion / Pre renal state RHydro - ? R better functoning kidney CKD- Stage 3 a at baseline R [place] Hyperkalemia Urine studies not c/w Prerenal state Urology eval IVF with Bicarb Low K diet K is better No nephrotoxins Thx Dr. Marc Time Spent With Patient Time: Total time managing care of this patient today ____ minutes.
--- NOTE | 2023-06-18 12:36 | MHC.EDTECH ---
pt's ostomy bag was emptied and cleaned out, snacks given, patient repositioned, warm blanket given
--- NOTE | 2023-06-18 13:31 | PC.NURSE ---
informed Karla VIVAS of serial low BP 87/54 and 88/51. new order for NS ordered
[2023-06-18] MEDS: 0.9 % Sodium Chloride 1,000 ML 500 ML IVCONT (13:34)
--- NOTE | 2023-06-18 14:00 | P.CNUR_ITS ---
History of Present Illness Consult details Consult date: 06/18/23 Narrative: CC: Right hydroureteronephrosis 83-year-old female SP colon cancer resection February 2022. Was followed by Dr. Davis with history of breast cancer in 2009. Baseline CKD 3. Presents through emergency room with shortness of breath, weakness and anorexia. Reduced appetite for past month, fatigue, very little strength. Found to have leukocytosis, low hematocrit, elevated potassium, BUN 125, creatinine 5.7 with metabolic acidosis Imaging - CT - significant right hydroureteronephrosis with dilated ureter into right pelvis. New onset multiple liver lesions up to 2.7 cm Recommend stabilization with cystoscopy, right retrograde and stent placement tomorrow Review of Systems 2 Constitutional: Constitutional: Reports as per HPI and Reports no additional constitutional complaints Cardiovascular: Cardiovascular: Reports as per HPI and Reports no additional cardiovascular complaints Respiratory: Respiratory: Reports as per HPI and Reports no additional respiratory complaints Gastrointestinal: Gastrointestinal: Reports as per HPI and Reports no additional gastrointestinal complaints Genitourinary: Genitourinary: Reports as per HPI Musculoskeletal: Musculoskeletal: Reports no additional musculoskeletal complaints and Reports as per HPI Neurologic: Reports system reviewed and no additional complaints, except as documented and Reports as per HPI PMFSH Past Medical History Medical History History of colon cancer Postoperative ileus Colon carcinoma Sepsis Bacteremia due to Gram-negative bacteria Chronic restrictive lung disease Emphysema lung Pulmonary nodule COPD (chronic obstructive pulmonary disease) Tachycardia Dyspnea GERD (gastroesophageal reflux disease) Anemia Wrist fracture, bilateral Osteoporosis Hypertension B12 deficiency Breast cancer Family History Family History Mother Vaginal cancer Maternal Aunt Breast cancer Surgical History Surgical History Status post exploratory laparotomy History of laparotomy Hx of lumpectomy S/P excision of lipoma Hx of esophagogastroduodenoscopy Hx of colonoscopy History of appendectomy H/O colectomy H/O hysterectomy with oophorectomy History of cataract surgery History of lumpectomy of right breast Social History Social History Household Members: None Housing: House Are you a primary home health care physician to a significant other at home: No Do you presently have visiting nurse or other home services: Yes (once a week for surgery) Alcohol intake: never Patient Tobacco Use Status: Former Tobacco user Tobacco use type: Cigarette Years Smoked: 25 years Smoked in Last 30 Days: No Second Hand Smoke Exposure: No Use of substances other than those prescribed or required for medical reasons: No Advance Directives: Yes Advance Directives on File: Yes Advance Directives Date on File: 03/19/22 Nutrition Risks: No Nutritional Risk service: No Current occupational status: retired and disabled Current occupation: rt handed Meds Allergies Allergy/AdvReac Type Severity Reaction Status Date / Time meperidine [From Demerol] Allergy Mild VOMITING Verified 06/17/23 12:48 Active Medications: Current Medications Acetaminophen (Acetaminophen 325 Mg Tablet) 650 mg PO Q6H PRN PRN Reason: Pain, Mild (Pain Scale 1-3) Albuterol/Ipratropium (Albuterol/Iprat 2.5/0.5mg 3 Ml Ampul.Neb) 3 ml INHALE RQ4H WHILE AWAKE [facility] Last Admin: 06/18/23 11:47 Dose: Not Given Albuterol/Ipratropium (Albuterol/Iprat 2.5/0.5mg 3 Ml Ampul.Neb) 3 ml INHALE Q4H PRN PRN Reason: Wheezing Heparin Sodium (Porcine) (Heparin Sodium,Porcine 5,000 Unit/Ml Vial) 5,000 unit SUBCUT Q12H [facility] Last Admin: 06/18/23 08:40 Dose: 5,000 unit Sodium Bicarbonate 150 meq/ (Dextrose) 1,000 mls @ 100 mls/hr IV .Q10H [facility] Last Admin: 06/18/23 13:23 Dose: 100 mls/hr Sodium Chloride (Ns) 1,000 mls @ 500 mls/hr IVCONT .Q2H [facility] Stop: 06/18/23 15:29 Last Admin: 06/18/23 13:34 Dose: 500 mls/hr Melatonin (Melatonin 3 Mg Tablet) 6 mg PO BEDTIME PRN PRN Reason: Insomnia Ondansetron HCl (Ondansetron Hcl 4 Mg/2 Ml Vial) 4 mg IVPUSH Q8H PRN PRN Reason: Nausea and Vomiting Sodium Chloride (0.9 % Sodium Chloride Flush 3 Ml Syringe) 3 ml IVFLUSH QSHIFT [facility] Last Admin: 06/18/23 08:36 Dose: Not Given Zolpidem Tartrate (Zolpidem Tartrate 5 Mg Tablet) 5 mg PO BEDTIME PRN PRN Reason: Insomnia Last Admin: 06/18/23 04:12 Dose: 5 mg Home Medications Medication Instructions Recorded Confirmed Last Taken Type cholecalciferol (vitamin D3) 25 25 mcg PO DAILY 06/03/20 06/18/23 Unknown History mcg (1,000 unit) tablet ferrous sulfate 325 mg (65 mg 325 mg PO DAILY 06/03/20 06/18/23 Unknown History iron) tablet kvbzabmfnnyo-yxhuqeut-fddely tablet 1 tab PO DAILY 06/03/20 06/18/23 Unknown History calcium carbonate 500 mg calcium 500 mg PO DAILY 03/07/22 06/18/23 Unknown History (1,250 mg) tablet cyanocobalamin (vitamin B-12) 1,000 mcg IM Q42D 03/19/22 06/18/23 02/24/22 History 1,000 mcg/mL injection solution hydrochlorothiazide 25 mg tablet 25 mg PO DAILY 10/25/22 06/18/23 Unknown History vitamin E 268 mg (400 unit) capsule 268 mg PO DAILY 06/18/23 06/18/23 Unknown History Physical Exam 2 Vital Signs: Vital Signs: Last Vital Signs Temp 97.6 F 06/18/23 07:14 Pulse 95 06/18/23 13:28 Resp 12 06/18/23 13:28 BP 88/51 L 06/18/23 13:29 Pulse Ox 93 06/18/23 13:29 O2 Del Method Room Air 06/18/23 13:29 BMI result Body Mass Index 17.7 Const: General: cooperative, healthy appearing, comfortable and no acute distress Orientation/consciousness: patient oriented x3 HEENT: Face and sinus: Yes normal facial exam Mouth: moist mucous membranes Neck: Neck: Yes normal visual inspection, Yes full ROM and Yes trachea midline Chest: Chest palpation & inspection: normal inspection of the chest Resp: Effort & Inspection: normal respiratory effort, able to speak in complete sentences and no respiratory distress GI: Inspection: Yes normal to inspection Back/Spine/Pelvis: Cervical Spine: normal cervical lordosis Thoracic/Lumbar Spine: thoracic and lumbar spine normal to inspection Skin: General skin exam: no rashes or lesions noted Neuro: General: patient oriented x3, tone normal and moves all extremities Extrem: General: Yes normal to inspection and Yes capillary refill normal Results Labs 06/18/23 05:02 06/18/23 05:02 Labs: Abnormal lab results 06/17/23 06/17/23 06/17/23 Range/Units 13:15 14:37 14:44 WBC 12.7 H (4.8-10.8) X10*3/uL RBC 3.55 L (4.20-5.50) X10*6/uL Hgb 11.1 L (12.0-16.0) g/dl Hct 33.7 L (37.0-47.0) % Immature Gran % (Auto) 2.9 H (0.0-0.4) % Neut % (Auto) 86.0 H (45-73) % Lymph % (Auto) 6.0 L (20-40) % Lymph # (Auto) 0.8 L (1.2-4.9) X10*3/uL Abs Immat Gran (auto) 0.37 H (0.00-0.03) X10*3/uL Absolute Neuts (auto) 11.0 H (2.0-8.3) x10*3/uL Neutrophils % (Manual) (45-73) % Band Neutrophils % (3-5) % Lymphocytes % (Manual) (20-40) % Lymphocytes # (Manual) (1.2-4.9) X10*3/uL PT 14.5 H (11.1-13.3) SEC INR 1.2 H (0.9-1.1) VBG pH 7.20 L* (7.32-7.43) VBG HCO3 10 L (22-26) mmol/L Sodium 132 L (135-145) mmol/L Potassium 6.1 H* D (3.3-5.1) mmol/L Carbon Dioxide 7 L* D (22-29) mmol/L Anion Gap 23 H (12-20) BUN > 125 H (9-16) mg/dL Creatinine 5.69 H* (0.5-1.4) mg/dL Random Glucose (60-115) mg/dL Calcium 10.5 H D (8.4-10.2) mg/dL Magnesium 2.7 H (1.6-2.6) mg/dL Troponin I High Sens 25.2 H (<3.5-17.0) ng/L Total Protein 9.0 H (6.5-8.0) g/dL Urine Osmolality (373-1093) mosm/kg 06/17/23 06/17/23 06/17/23 Range/Units 19:22 19:27 20:32 WBC (4.8-10.8) X10*3/uL RBC (4.20-5.50) X10*6/uL Hgb (12.0-16.0) g/dl Hct (37.0-47.0) % Immature Gran % (Auto) (0.0-0.4) % Neut % (Auto) (45-73) % Lymph % (Auto) (20-40) % Lymph # (Auto) (1.2-4.9) X10*3/uL Abs Immat Gran (auto) (0.00-0.03) X10*3/uL Absolute Neuts (auto) (2.0-8.3) x10*3/uL Neutrophils % (Manual) (45-73) % Band Neutrophils % (3-5) % Lymphocytes % (Manual) (20-40) % Lymphocytes # (Manual) (1.2-4.9) X10*3/uL PT (11.1-13.3) SEC INR (0.9-1.1) VBG pH 7.28 L (7.32-7.43) VBG HCO3 13 L (22-26) mmol/L Sodium 134 L (135-145) mmol/L Potassium (3.3-5.1) mmol/L Carbon Dioxide 12 L (22-29) mmol/L Anion Gap 21 H (12-20) BUN 119 H (9-16) mg/dL Creatinine 5.20 H* (0.5-1.4) mg/dL Random Glucose 118 H (60-115) mg/dL Calcium (8.4-10.2) mg/dL Magnesium (1.6-2.6) mg/dL Troponin I High Sens (<3.5-17.0) ng/L Total Protein (6.5-8.0) g/dL Urine Osmolality 357 L (373-1093) mosm/kg 06/18/23 Range/Units 05:02 WBC (4.8-10.8) X10*3/uL RBC 2.93 L (4.20-5.50) X10*6/uL Hgb 9.1 L (12.0-16.0) g/dl Hct 26.8 L D (37.0-47.0) % Immature Gran % (Auto) (0.0-0.4) % Neut % (Auto) (45-73) % Lymph % (Auto) (20-40) % Lymph # (Auto) (1.2-4.9) X10*3/uL Abs Immat Gran (auto) (0.00-0.03) X10*3/uL Absolute Neuts (auto) (2.0-8.3) x10*3/uL Neutrophils % (Manual) 81 H (45-73) % Band Neutrophils % 2 L (3-5) % Lymphocytes % (Manual) 9 L (20-40) % Lymphocytes # (Manual) 0.8 L (1.2-4.9) X10*3/uL PT (11.1-13.3) SEC INR (0.9-1.1) VBG pH (7.32-7.43) VBG HCO3 (22-26) mmol/L Sodium (135-145) mmol/L Potassium (3.3-5.1) mmol/L Carbon Dioxide 17 L (22-29) mmol/L Anion Gap (12-20) BUN 115 H (9-16) mg/dL Creatinine 5.17 H* (0.5-1.4) mg/dL Random Glucose 132 H (60-115) mg/dL Calcium (8.4-10.2) mg/dL Magnesium (1.6-2.6) mg/dL Troponin I High Sens 33.6 H (<3.5-17.0) ng/L Total Protein (6.5-8.0) g/dL Urine Osmolality (373-1093) mosm/kg Short CBC 06/17/23 06/18/23 Range/Units 14:37 05:02 WBC 12.7 H 9.2 (4.8-10.8) X10*3/uL Hgb 11.1 L 9.1 L (12.0-16.0) g/dl Hct 33.7 L 26.8 L D (37.0-47.0) % Plt Count 278 D 233 (160-400) X10*3/uL BMP 06/17/23 06/17/23 06/18/23 13:15 19:22 05:02 Sodium 132 L 134 L 135 Potassium 6.1 H* D 4.7 D 4.3 Chloride 108 106 102 Carbon Dioxide 7 L* D 12 L 17 L BUN > 125 H 119 H 115 H Creatinine 5.69 H* 5.20 H* 5.17 H* Calcium 10.5 H D 9.4 D 8.9 Liver Function 06/17/23 Range/Units 13:15 Total Bilirubin 0.4 (0.0-1.0) mg/dL Direct Bilirubin 0.2 (0.0-0.5) mg/dL AST 15 (5-31) U/L ALT 11 (0-31) U/L Alkaline Phosphatase 88 (39-117) U/L Albumin 4.0 (3.5-5.0) g/dL All other labs normal. Assessment and Plan (1) Acute metabolic acidosis: Status: Acute (2) Acute urinary retention: Status: Acute (3) Hydronephrosis: Qualifiers: Hydronephrosis type: unspecified Qualified Code(s): N13.30 - Unspecified hydronephrosis Status: Acute Plan Plan cysto with retrograde and stent tomorrow Risks, benefits and alternatives to therapy were discussed. These include but are not limited to infection, bleeding, damage to local organs and tissues, need for further interventions. Anesthetic risks regarding cardiac arrhythmia, blood clots, and potential mortality were discussed. The patient understands the typical recovery time and the outpatient nature of the procedure. After consideration of these risks the patient gives full informed consent and they wish to move ahead with the procedure. Time Spent With Patient Time: Total time managing care of this patient today ____ minutes. Procedures Date of Service Date of Service: 06/18/23
--- NOTE | 2023-06-18 14:35 | P.CDIM_ITS ---
PROVIDER RESPONSE TEXT: To clarify, the appropriate diagnosis supported by the clinical indicators: Malnutrition: moderate QUERY TEXT: PHYSICIAN'S DOCUMENTATION REQUEST Date of Query: 06/18/2023 11:56 AM EDT Patient Name: Nereida Rowell Admit Date: 06/18/2023 Dear Karla Shirley, A review of the medical record indicates additional documentation may be needed. Please review below and update the documentation accordingly. Clinical Indicators: BMI: 17.7 5ft 5in 48.3kg Cancer patient, deferred chemo d/t weakness/age/had reduced appetite and po intake the past month. If possible, please provide an associated diagnosis related to the abnormal BMI, such as: Underweight Malnutrition mild, moderate, severe Cachexia Other (explain)Clinically unable to determine (explain)Thank you, Parvin Novak, CCS, CDIS Use of terms such as suspected, likely, concern for, or probable (associated with a specific diagnosi s that is being evaluated, monitored, or treated as if it exists) are acceptable and can be coded in the inpatient se tting, when documented at the time of discharge. Please use your independent medical judgment in providing your response. THIS QUERY IS PART OF THE PERMANENT MEDICAL RECORD
--- NOTE | 2023-06-18 17:31 | PC.NURSE ---
PT RESTING IN BED, REPOSITIONED ONTO HER LEFT SIDE. PT C/O BACK PAIN FROM BED. OTHERWISE IN NAD, RESPIRATIONS EVEN AND UNLABORED. SODIUM BICARB INFUSING AT 100ML/HR THROUGH 20 LAC. PT AWAITING INPATIENT HOSPITAL BED. PLAN FOR NPO AT MIDNIGHT, STENT PLACEMENT TONIGHT
[2023-06-18] MEDS: Acetaminophen 325 MG TABLET 650 MG PO (22:14)
--- NOTE | 2023-06-18 23:44 | PC.NURSE ---
pt is a/o x4, resting comfortably, no apparent distress. report given to RN. Bicarb still running from previous admin. New mixed bag from pharmacy will be transported with pt. Rn is aware. pt is
[2023-06-19] VITALS (15 sets, daily range): BP systolic 84–110; BP diastolic 40–60; PULSE 83–96; RESP 15–20; TEMP 36.3–37; O2SAT 92–100; BMI 19.1
[2023-06-19] MEDS: Sodium Bicarbonate 8.4% 150 MEQ in Dextrose 5 % 850 ML 100 MEQ IV ×2 (01:02→11:48)
[2023-06-19 09:31] LABS: Blood Urea Nitrogen 96 mg/dL (9-16); Creatinine Clr Calc Pharmacy 10.8; Estimated Glomerular Filt Rate 13; Glucose Random 115 mg/dL (60-115)
[2023-06-19 09:44] LABS: Anion Gap 17 (12-20); Calcium 7.8 mg/dL (8.4-10.2); Carbon Dioxide 33 mmol/L (22-29); Chloride 94 mmol/L (96-108); Potassium 2.9 mmol/L (3.3-5.1); Sodium 141 mmol/L (135-145)
--- NOTE | 2023-06-19 11:36 | P.PNIM_ITS ---
Subjective Subjective Date of Service: 06/19/23 Review of Systems Follow up LEONIE on CKD feeling better plan for ureteral stent Physical Exam 2 Vital Signs: Vital Signs: Last Vital Signs Temp 98.1 F 06/19/23 08:00 Pulse 96 06/19/23 08:00 Resp 20 06/19/23 08:00 BP 106/57 L 06/19/23 08:00 Pulse Ox 92 06/19/23 08:00 O2 Del Method Room Air 06/19/23 08:00 BMI result Body Mass Index 19.1 Appearing in no acute distress lung sounds are clear to auscultation heart regular rate rhythm, clear S1, S2 positive bowel sounds, abdomen is soft, nontender neuro patient is alert x3, no focal deficits Objective Data Active Medications Acetaminophen (Acetaminophen 325 Mg Tablet) 650 mg PO Q6H PRN PRN Reason: Pain, Mild (Pain Scale 1-3) Last Admin: 06/18/23 22:14 Dose: 650 mg Documented By: CATHY Albuterol/Ipratropium (Albuterol/Iprat 2.5/0.5mg 3 Ml Ampul.Neb) 3 ml INHALE RQ4H WHILE AWAKE [facility] Last Admin: 06/19/23 11:10 Dose: Not Given Documented By: RENETTA Non-Admin Reason: See Note Albuterol/Ipratropium (Albuterol/Iprat 2.5/0.5mg 3 Ml Ampul.Neb) 3 ml INHALE Q4H PRN PRN Reason: Wheezing Fentanyl (Fentanyl Citrate/Pf 100 Mcg/2 Ml Vial) 25 mcg IVPUSH Q5M PRN; Protocol PRN Reason: Pain, Moderate(Pain Scale 4-6) Heparin Sodium (Porcine) (Heparin Sodium,Porcine 5,000 Unit/Ml Vial) 5,000 unit SUBCUT Q12H [facility] Last Admin: 06/18/23 20:32 Dose: 5,000 unit Documented By: CATHY Sodium Bicarbonate 150 meq/ (Dextrose) 1,000 mls @ 100 mls/hr IV .Q10H [facility] Last Admin: 06/19/23 01:02 Dose: 100 mls/hr Documented By: ZEN Melatonin (Melatonin 3 Mg Tablet) 6 mg PO BEDTIME PRN PRN Reason: Insomnia Ondansetron HCl (Ondansetron Hcl 4 Mg/2 Ml Vial) 4 mg IVPUSH Q8H PRN PRN Reason: Nausea and Vomiting Ondansetron HCl (Ondansetron Hcl 4 Mg/2 Ml Vial) 4 mg IVPUSH ONCE PRN PRN Reason: Nausea and Vomiting Sodium Chloride (0.9 % Sodium Chloride Flush 3 Ml Syringe) 3 ml IVFLUSH QSHIFT [facility]OR[facility] Last Admin: 06/19/23 01:04 Dose: Not Given Documented By: ZEN Non-Admin Reason: IV Running Zolpidem Tartrate (Zolpidem Tartrate 5 Mg Tablet) 5 mg PO BEDTIME PRN PRN Reason: Insomnia Last Admin: 06/18/23 22:26 Dose: 5 mg Documented By: CATHY Labs 06/18/23 05:02 06/19/23 07:33 Labs: Laboratory Results - last 24 hr 06/19/23 07:33 Hold Purple Top SEE NOTE Anion Gap 17 Estim Creat Clear Calc 10.8 Estimated GFR 13 Random Glucose 115 Calcium 7.8 L D Assessment and Plan (1) Acute metabolic acidosis: Status: Acute (2) Acute kidney injury superimposed on CKD: Status: Acute Plan Pt is an 83-year-old female with a PMH significant for?stage III colon cancer s/p resection February 2022 with ileostomy not on chemo and followed by Dr. Davis, hx of right breast cancer in 2009, COPD, microcytic anemia, and CKD3 who presents to the ED for evaluation of shortness of breath, weakness, and anorexia. Pt will be admitted to the hospital for treatment and further evaluation of LEONIE superimposed on CKD 3. Acute kidney injury superimposed on CKD 3, slowly trending down creatinine 3.30 Likely prerenal, secondary to dehydration d/t reduced p.o. intake for the past month Right sided hydronephrosis noted plan for ureteral stent placement today Zarco cath for fluid management Nephrology consult pending Follow [facility] Metabolic acidosis. resolved Initial VBG pH 7.20 with bicarb of 7 Patient placed on bicarb drip, VBG improved Continue bicarb drip Nephrology consult pending Hyperkalemia. Resolved Potassium 6.1 at time of presentation Patient asymptomatic, no EKG changes Patient given Lokelma and calcium gluconate in the ED Follow [facility] Colon cancer S/P resection February 2022 with ileostomy Patient deferred chemo d/t weakness/age, followed by Dr. Davis CT of abdomen and pelvis with new multiple liver lesions of various sizes with the largest measuring 2.7 cm, likely metastasis Patient denies any abdominal pain, though has felt weak, short of breath, and had reduced appetite and p.o. intake the past month Oncology consult pending Elevated troponin Initial troponin 25.2 Patient asymptomatic: Denies chest pain/pressure, EKG without significant ischemic changes Leukocytosis. Resolved WBC initially 12.7 Likely reactionary, no active sign of infection, no sepsis Tachycardia and tachypnea likely secondary to dehydration, not active infection or sepsis Follow CBC COPD Does not appear to be in acute exacerbation Continue home inhalers GERD Continue PPI HTN continue home meds Full Code Attending:?Dr. Guzman DVT Prophylaxis: Heparin continue hopsital stay for treatment of?LEONIE superimposed on CKD. Patient will need IVF, bicarb drip, close monitoring of labs, and specialist consultation. Time Spent With Patient Time: Total time managing care of this patient today ____ minutes. Quality Stroke Does the patient have a stroke diagnosis?: No VTE Prior VTE?: No VTE Risk Level:: Medical - moderate - high VTE Device Contraindication: Treatment Not Indicated VTE Drug Contraindication: N/A - Med Ordered
--- NOTE | 2023-06-19 12:23 | P.CONAN_ITS ---
[facility] Active Problems Active Problems: All Active Problems (Updated 06/18/23 @ 14:11 by Yaya Williamson MD) Hydronephrosis (Acute) POLANCO (dyspnea on exertion) (Acute) Acute metabolic acidosis (Acute) Acute kidney injury superimposed on CKD (Acute) History of colon cancer (Acute) Status post exploratory laparotomy (Acute) Colon carcinoma (Acute) Acute urinary retention (Acute) Chronic restrictive lung disease (Acute) Emphysema lung (Acute) Pulmonary nodule (Acute) COPD (chronic obstructive pulmonary disease) (Acute) Tachycardia (Acute) Blood D-dimer assay positive (Acute) Dyspnea (Acute) Fracture of proximal end of right humerus (Acute) Breast cancer (Acute) Anemia (Acute) Past Medical History Medical History History of colon cancer Postoperative ileus Colon carcinoma Sepsis Bacteremia due to Gram-negative bacteria Chronic restrictive lung disease Emphysema lung Pulmonary nodule COPD (chronic obstructive pulmonary disease) Tachycardia Dyspnea GERD (gastroesophageal reflux disease) Anemia Wrist fracture, bilateral Osteoporosis Hypertension B12 deficiency Breast cancer Family History Family History Mother Vaginal cancer Maternal Aunt Breast cancer Family history of problems with anesthesia: No Surgical History Surgical History Status post exploratory laparotomy History of laparotomy Hx of lumpectomy S/P excision of lipoma Hx of esophagogastroduodenoscopy Hx of colonoscopy History of appendectomy H/O colectomy H/O hysterectomy with oophorectomy History of cataract surgery History of lumpectomy of right breast History of Problems with Anesthesia: No Social History Social History Household Members: None Housing: House Are you a primary rn progressive care unit to a significant other at home: No Do you presently have visiting nurse or other home services: No Alcohol intake: never Patient Tobacco Use Status: Former Tobacco user Quit Date: 1987 Tobacco use type: Cigarette Years Smoked: 25 years Second Hand Smoke Exposure: No Advance Directives Date on File: 03/19/22 service: No Current occupational status: retired and disabled Current occupation: rt handed Meds Allergies Allergy/AdvReac Type Severity Reaction Status Date / Time meperidine [From Demerol] Allergy Mild VOMITING Verified 06/17/23 12:48 Active Medications: Current Medications Acetaminophen (Acetaminophen 325 Mg Tablet) 650 mg PO Q6H PRN PRN Reason: Pain, Mild (Pain Scale 1-3) Last Admin: 06/18/23 22:14 Dose: 650 mg Albuterol/Ipratropium (Albuterol/Iprat 2.5/0.5mg 3 Ml Ampul.Neb) 3 ml INHALE RQ4H WHILE AWAKE [facility] Last Admin: 06/19/23 11:10 Dose: Not Given Albuterol/Ipratropium (Albuterol/Iprat 2.5/0.5mg 3 Ml Ampul.Neb) 3 ml INHALE Q4H PRN PRN Reason: Wheezing Fentanyl (Fentanyl Citrate/Pf 100 Mcg/2 Ml Vial) 25 mcg IVPUSH Q5M PRN; Protocol PRN Reason: Pain, Moderate(Pain Scale 4-6) Heparin Sodium (Porcine) (Heparin Sodium,Porcine 5,000 Unit/Ml Vial) 5,000 unit SUBCUT Q12H [facility] Last Admin: 06/18/23 20:32 Dose: 5,000 unit Melatonin (Melatonin 3 Mg Tablet) 6 mg PO BEDTIME PRN PRN Reason: Insomnia Ondansetron HCl (Ondansetron Hcl 4 Mg/2 Ml Vial) 4 mg IVPUSH Q8H PRN PRN Reason: Nausea and Vomiting Ondansetron HCl (Ondansetron Hcl 4 Mg/2 Ml Vial) 4 mg IVPUSH ONCE PRN PRN Reason: Nausea and Vomiting Potassium Chloride (Potassium Chloride Er 20 Meq Tab.Er.Prt) 40 meq PO DAILY [facility] Sodium Chloride (0.9 % Sodium Chloride Flush 3 Ml Syringe) 3 ml IVFLUSH QSHIFT [facility] Last Admin: 06/19/23 01:04 Dose: Not Given Zolpidem Tartrate (Zolpidem Tartrate 5 Mg Tablet) 5 mg PO BEDTIME PRN PRN Reason: Insomnia Last Admin: 06/18/23 22:26 Dose: 5 mg Home Medications Medication Instructions Recorded Confirmed Last Taken Type cholecalciferol (vitamin D3) 25 25 mcg PO DAILY 06/03/20 06/18/23 Unknown History mcg (1,000 unit) tablet ferrous sulfate 325 mg (65 mg 325 mg PO DAILY 06/03/20 06/18/23 Unknown History iron) tablet wlvyjnrfrkmh-shlglvfb-ripsbd tablet 1 tab PO DAILY 06/03/20 06/18/23 Unknown History calcium carbonate 500 mg calcium 500 mg PO DAILY 03/07/22 06/18/23 Unknown History (1,250 mg) tablet cyanocobalamin (vitamin B-12) 1,000 mcg IM Q42D 03/19/22 06/18/23 02/24/22 History 1,000 mcg/mL injection solution hydrochlorothiazide 25 mg tablet 25 mg PO DAILY 10/25/22 06/18/23 Unknown History vitamin E 268 mg (400 unit) capsule 268 mg PO DAILY 06/18/23 06/18/23 Unknown History Exam Exam Date and Time: June 19, 2023 1223 Height,Weight and Vital Signs: Height 5 ft 5 in Weight 52.2 kg Last Vital Signs Temp 97.8 F 06/19/23 12:15 Pulse 93 06/19/23 12:15 Resp 18 06/19/23 12:15 BP 99/50 L 06/19/23 12:15 Pulse Ox 95 06/19/23 12:15 O2 Del Method Room Air 06/19/23 12:15 Pertinent Lab Results Pertinent Lab Results: Laboratory Tests 06/17/23 06/17/23 06/17/23 13:15 14:37 14:44 WBC 12.7 H RBC 3.55 L Hgb 11.1 L Hct 33.7 L MCVn 94.9 MCH 31.3 MCHC 32.9 RDW 14.8 Plt Count 278 D MPV 10.4 Immature Gran % (Auto) 2.9 H Neut % (Auto) 86.0 H Lymph % (Auto) 6.0 L [place]imble % (Auto) 3.8 Eos % (Auto) 0.5 Baso % (Auto) 0.8 Lymph # (Auto) 0.8 L [place] # (Auto) 0.5 Eos # (Auto) 0.1 Baso # (Auto) 0.1 Abs Immat Gran (auto) 0.37 H Absolute Neuts (auto) 11.0 H Absolute Nucleated RBC 0.000 Nucleated RBC % (auto) 0.0 Neutrophils % (Manual) Band Neutrophils % Lymphocytes % (Manual) Monocytes % (Manual) Metamyelocytes % Promyelocytes % Abs Neuts (Manual) Lymphocytes # (Manual) Monocytes # (Manual) Metamyelocytes # Promyelocytes # Platelet Estimate Plt Morphology Comment RBC Morphology Spherocytes Acanthocytes (Spur) Hold Purple Top PT 14.5 H INR 1.2 H APTT 28.6 D-Dimer High Sensitivty 309 VBG pH 7.20 L* VBG pCO2 25 VBG pO2 46 VBG HCO3 10 L VBG O2 Saturation 71.0 VBG Base Excess -16.0 Sodium 132 L Potassium 6.1 H* D Chloride 108 Carbon Dioxide 7 L* D Anion Gap 23 H BUN > 125 H Creatinine 5.69 H* Estim Creat Clear Calc 5.8 Estimated GFR 7 Random Glucose 115 Calcium 10.5 H D Magnesium 2.7 H Total Bilirubin 0.4 Direct Bilirubin 0.2 AST 15 ALT 11 Alkaline Phosphatase 88 Troponin I High Sens 25.2 H B-Natriuretic Peptide 88 Total Protein 9.0 H Albumin 4.0 Procalcitonin 0.43 Urine Osmolality Ur Random Sodium Urine Creatinine COVID-19 ([facility]) Negative COVID-19 Clin Com See Note 06/17/23 06/17/23 06/17/23 19:22 19:27 20:32 WBC RBC Hgb Hct MCV MCH MCHC RDW Plt Count MPV Immature Gran % (Auto) Neut % (Auto) Lymph % (Auto) Trimble % (Auto) Eos % (Auto) Baso % (Auto) Lymph # (Auto) Trimble # (Auto) Eos # (Auto) Baso # (Auto) Abs Immat Gran (auto) Absolute Neuts (auto) Absolute Nucleated RBC Nucleated RBC % (auto) Neutrophils % (Manual) Band Neutrophils % Lymphocytes % (Manual) Monocytes % (Manual) Metamyelocytes % Promyelocytes % Abs Neuts (Manual) Lymphocytes # (Manual) Monocytes # (Manual) Metamyelocytes # Promyelocytes # Platelet Estimate Plt Morphology Comment RBC Morphology Spherocytes Acanthocytes (Spur) Hold Purple Top PT INR APTT D-Dimer High Sensitivty VBG pH 7.28 L VBG pCO2 27 VBG pO2 38 VBG HCO3 13 L VBG O2 Saturation 67.0 VBG Base Excess -11.9 Sodium 134 L Potassium 4.7 D Chloride 106 Carbon Dioxide 12 L Anion Gap 21 H BUN 119 H Creatinine 5.20 H* Estim Creat Clear Calc 6.3 Estimated GFR 8 Random Glucose 118 H Calcium 9.4 D Magnesium Total Bilirubin Direct Bilirubin AST ALT Alkaline Phosphatase Troponin I High Sens B-Natriuretic Peptide Total Protein Albumin Procalcitonin Urine Osmolality 357 L Ur Random Sodium 58.0 Urine Creatinine 162.06 COVID-19 ([facility]FIYA) COVID-19 [employer] Com 06/18/23 06/19/23 05:02 07:33 WBC 9.2 RBC 2.93 L Hgb 9.1 L Hct 26.8 L D MCV 91.5 MCH 31.1 MCHC 34.0 RDW 14.7 Plt Count 233 MPV 10.7 Immature Gran % (Auto) Cancelled Neut % (Auto) Cancelled Lymph % (Auto) Cancelled Trimble % (Auto) Cancelled Eos % (Auto) Cancelled Baso % (Auto) Cancelled Lymph # (Auto) Cancelled Trimble # (Auto) Cancelled Eos # (Auto) Cancelled Baso # (Auto) Cancelled Abs Immat Gran (auto) Cancelled Absolute Neuts (auto) Cancelled Absolute Nucleated RBC 0.000 Nucleated RBC % (auto) 0.0 Neutrophils % (Manual) 81 H Band Neutrophils % 2 L Lymphocytes % (Manual) 9 L Monocytes % (Manual) 5 Metamyelocytes % 1 Promyelocytes % 2 Abs Neuts (Manual) 7.6 Lymphocytes # (Manual) 0.8 L Monocytes # (Manual) 0.5 Metamyelocytes # 0.1 Promyelocytes # 0.2 Platelet Estimate NORMAL Plt Morphology Comment NORMAL RBC Morphology NOTED Spherocytes 3+ (>5) Acanthocytes (Spur) 1+ (0-2) Hold Purple Top SEE NOTE PT INR APTT D-Dimer High Sensitivty VBG pH VBG pCO2 VBG pO2 VBG HCO3 VBG O2 Saturation VBG Base Excess Sodium 135 141 Potassium 4.3 2.9 L D Chloride 102 94 L Carbon Dioxide 17 L 33 H Anion Gap 20 17 BUN 115 H 96 H Creatinine 5.17 H* 3.30 H Estim Creat Clear Calc 6.4 10.8 Estimated GFR 8 13 Random Glucose 132 H 115 Calcium 8.9 7.8 L D Magnesium Total Bilirubin Direct Bilirubin AST ALT Alkaline Phosphatase Troponin I High Sens 33.6 H B-Natriuretic Peptide Total Protein Albumin Procalcitonin Urine Osmolality Ur Random Sodium Urine Creatinine COVID-19 ([facility]) COVID-19 Clin Com Airway Denture: Upper Partial: Lower Loose/Missing/Broken Teeth: Yes, Upper and Lower Heart: rrr Lungs: clear Assessment and Plan Final Anesthetic Review Family History of Problems with Anesthesia: No History of Problems with Anesthesia: No NPO: Yes ASA Class: IV and Emergency Final Preanesthetic Review: No Changes in Pt Med Stat, Meds/Allgs Chart Reviewed, Consent Obtained/Reviewed and Anes Risks/Benef Reviewed Patient Risk: High Procedure Risk: Low Anesthetic Plan Anesthetic Plan: GA Disposition: Standard PACU
--- NOTE | 2023-06-19 12:39 | MHC.SHP ---
Pre-Procedural Eval Section A Date of Service: 06/19/23 The patient is an INPATIENT: Yes Section B Chief Complaint: Right hydronephrosis, Acute renal injury/h/o CKD Allergies: Allergies Allergy/AdvReac Type Severity Reaction Status Date / Time meperidine [From Demerol] Allergy Mild VOMITING Verified 06/17/23 12:48 Plan Diagnosis/Plan: Unchanged I have reviewed the history and physical and performed a pertinent physical examination on my patient. No changes have occurred unless specified. Cystoscopy, right retrograde right ureteral stent Time Spent With Patient Time: Total time managing care of this patient today ____ minutes.
--- NOTE | 2023-06-19 12:53 | PC.NURSE ---
IV insertion to left hand [address] Helms. IV that patient arrived with removed.
--- NOTE | 2023-06-19 13:51 | W.PM.OPN ---
Operative Note Operative Note Date of Service: 06/19/23 Narrative: PreOperative Diagnosis:?? Right hydronephrosis Post Operative Diagnosis:?? ?Right hydronephrosis, ureteral stricture mid ureter, pyonephrosis, pyuria, -------urine sent for culture from the bladder and right ureter Procedure: - cystoscopy, right retrograde, - right ureteral stent placement size 7 South African by 26 cm Surgeon:?Dr Cyndy Acharya Anesthesia:? General Procedure: After informed consent was verified the patient was brought to the operating placed on the OR table in supine position.? General Anesthesia was administered per protocol.? The patient had a [address] [place] [address] in [address] which was removed. The patient was placed in lithotomy position, prepped and draped in the usual sterile fashion.? Safety pause time-out and side of surgery confirmed.? Antibiotics confirmed. Ancef 2 g IV. 2% lidocaine jelly was placed transurethrally. A 22 [place] African cystoscope was inserted transurethrally, there was cloudy urine that drained from the bladder, the urine was sent for culture. The bladder was visualized.? The right ureteric orifice was identified and was cannulated? and a retrograde examination was performed, there was noted to be a mid ureteral stricture with severe dilatation of the proximal ureter, a guidewire was able to pass the ureteral stricture. The open-ended ureteral catheter was passed along the guidewire past the stricture, further contrast was injected into ureter and a patulous renal pelvis was also identified. Urine drained from the open-ended ureteral catheter and sent for culture. A hydrophilic guidewire was placed up to the level of the renal pelvis under fluoroscopy. A 7 [place] African by 26 cm ureteral stent was passed over the guidewire without significant resistance, once in good position the guidewire was removed. The bladder was emptied.? On re-evaluation there was cloudy urine draining from the right ureteral system through the stent. The rigid cystoscope was removed. An 18 [place] Zarco catheter was placed to gravity drainage.? The patient tolerated the procedure well and was brought to the recovery room in stable condition. Complications: None Drains: Ureteral stent as dictated above, 18 [place] Zarco
[2023-06-19] MEDS: ceFAZolin Sodium/Dextrose,Iso 2 GM/50 ML PIGGYBACK IV (16:08)
[2023-06-19] MEDS: Heparin Sodium,Porcine 5,000 UNIT/ML VIAL 5000 UNIT SUBCUT (21:02)
[2023-06-19] MEDS: Zolpidem Tartrate 5 MG TABLET PO (21:03)
[2023-06-19] MEDS: 0.9 % Sodium Chloride Flush 3 ML SYRINGE IVFLUSH (21:03)
[2023-06-20] VITALS (10 sets, daily range): BP systolic 89–113; BP diastolic 52–58; PULSE 79–102; RESP 12–20; TEMP 36.1–36.8; O2SAT 92–98
[2023-06-20 06:22] LABS: Anion Gap 16 (12-20); Blood Urea Nitrogen 77 mg/dL (9-16); Calcium 7.9 mg/dL (8.4-10.2); Carbon Dioxide 30 mmol/L (22-29); Chloride 96 mmol/L (96-108); Creatinine Clr Calc Pharmacy 12.8; Estimated Glomerular Filt Rate 16; Glucose Random 128 mg/dL (60-115); Potassium 3.7 mmol/L (3.3-5.1); Sodium 138 mmol/L (135-145)
[2023-06-20] MEDS: Albuterol/Iprat 2.5/0.5MG 3 ML AMPUL.NEB INHALE ×3 (07:53→19:22)
[2023-06-20] MEDS: 0.9 % Sodium Chloride Flush 3 ML SYRINGE IVFLUSH ×2 (09:11→12:37)
[2023-06-20] MEDS: Heparin Sodium,Porcine 5,000 UNIT/ML VIAL 5000 UNIT SUBCUT ×2 (09:11→20:05)
[2023-06-20] MEDS: 0.9 % Sodium Chloride 1,000 ML 50 ML IVCONT (09:11)
[2023-06-20] MEDS: Potassium Chloride ER 20 MEQ TAB.ER.PRT 40 MEQ PO (09:12)
--- NOTE | 2023-06-20 10:12 | MHC.CM.PN ---
Per ROUNDS discussion, Patient is not yet medically cleared for dc; a PT eval will be helpful to assist with disposition. CM will follow.
--- NOTE | 2023-06-20 10:19 | HO.PM.IMPN ---
Subjective Subjective Date of Service: 06/20/23 Interval History: weakness Physical Exam Vital Signs: Vital Signs: Last Vital Signs Temp 98.2 F 06/20/23 07:02 Pulse 85 06/20/23 07:55 Resp 16 06/20/23 07:55 BP 113/56 L 06/20/23 07:02 Pulse Ox 94 06/20/23 08:52 O2 Del Method Room Air 06/20/23 08:52 O2 Flow Rate 2 06/20/23 07:02 BMI result Body Mass Index 19.1 Appearing in no acute distress lung sounds are clear to auscultation heart regular rate rhythm, clear S1, S2 positive bowel sounds, abdomen is soft, nontender neuro patient is alert x3, limitted rue rom Objective Data Active Medications Acetaminophen (Acetaminophen 325 Mg Tablet) 650 mg PO Q6H PRN PRN Reason: Pain, Mild (Pain Scale 1-3) Last Admin: 06/18/23 22:14 Dose: 650 mg Documented By: CATHY Albuterol/Ipratropium (Albuterol/Iprat 2.5/0.5mg 3 Ml Ampul.Neb) 3 ml INHALE RQ4H WHILE AWAKE [facility] Last Admin: 06/20/23 07:53 Dose: 3 ml Documented By: ROBIN Albuterol/Ipratropium (Albuterol/Iprat 2.5/0.5mg 3 Ml Ampul.Neb) 3 ml INHALE Q4H PRN PRN Reason: Wheezing Fentanyl (Fentanyl Citrate/Pf 100 Mcg/2 Ml Vial) 25 mcg IVPUSH Q5M PRN; Protocol PRN Reason: Pain, Moderate(Pain Scale 4-6) Heparin Sodium (Porcine) (Heparin Sodium,Porcine 5,000 Unit/Ml Vial) 5,000 unit SUBCUT Q12H [facility] Last Admin: 06/20/23 09:11 Dose: 5,000 unit Documented By: KOLE Cefazolin Sodium 1 gm/ Sodium (Chloride) 50 mls @ 100 mls/hr IV Q12H [facility] Last Infusion: 06/20/23 01:04 Dose: Infused Documented By: RUBEN Sodium Chloride (Ns) 1,000 mls @ 50 mls/hr IVCONT .Q20H [facility] Last Admin: 06/20/23 09:11 Dose: 50 mls/hr Documented By: KOLE Melatonin (Melatonin 3 Mg Tablet) 6 mg PO BEDTIME PRN PRN Reason: Insomnia Ondansetron HCl (Ondansetron Hcl 4 Mg/2 Ml Vial) 4 mg IVPUSH Q8H PRN PRN Reason: Nausea and Vomiting Ondansetron HCl (Ondansetron Hcl 4 Mg/2 Ml Vial) 4 mg IVPUSH ONCE PRN PRN Reason: Nausea and Vomiting Potassium Chloride (Potassium Chloride Er 20 Meq Tab.Er.Prt) 40 meq PO DAILY [facility] Last Admin: 06/20/23 09:12 Dose: 40 meq Documented By: KOLE Sodium Chloride (0.9 % Sodium Chloride Flush 3 Ml Syringe) 3 ml IVFLUSH QSHIFT [facility] Last Admin: 06/20/23 09:11 Dose: 3 ml Documented By: KOLE Zolpidem Tartrate (Zolpidem Tartrate 5 Mg Tablet) 5 mg PO BEDTIME PRN PRN Reason: Insomnia Last Admin: 06/19/23 21:03 Dose: 5 mg Documented By: TAYAC Labs 06/18/23 05:02 06/20/23 05:24 Labs: Laboratory Results - last 24 hr 06/20/23 05:24 Hold Purple Top SEE NOTE Anion Gap 16 Estim Creat Clear Calc 12.8 Estimated GFR 16 Random Glucose 128 H Calcium 7.9 L Assessment and Plan (1) Hydronephrosis: Status: Acute (2) Acute metabolic acidosis: Status: Acute (3) Acute kidney injury superimposed on CKD: Status: Acute Plan 83F PMH significant for?stage III colon cancer s/p resection February 2022 with ileostomy not on chemo and followed by Dr. Davis, of right breast cancer in 2009, COPD, microcytic anemia, and CKD3 who presented to the ED for evaluation of shortness of breath, weakness, and anorexia. admitted to the hospital for treatment and further evaluation of LEONIE superimposed on CKD 3. Acute kidney injury superimposed on CKD 3, slowly trending down creatinine peak 5.69, now 2.8 combination of urinary retention dehydration from right uretheral stricture, hydronephrosis, s/p stent 06/19/23, continue ancef, follow up cultures Zarco cath for fluid management Follow BMP, gentle hydration Metabolic acidosis. resolved Initial VBG pH 7.20 with bicarb of 7 Patient placed on bicarb drip, VBG improved acute Hyperkalemia. Resolved Potassium 6.1 at time of presentation Patient asymptomatic, no EKG changes Patient given Lokelma and calcium gluconate in the ED Follow [facility] Colon cancer S/P resection February 2022 with ileostomy Patient deferred chemo d/t weakness/age, followed by Dr. Davis CT of abdomen and pelvis with new multiple liver lesions of various sizes with the largest measuring 2.7 cm, likely metastasis Patient denies any abdominal pain, though has felt weak, short of breath, and had reduced appetite and p.o. intake the past month Oncology consult pending COPD stable debility - pt recommending STR Full Code Attending:?Dr. Guzman DVT Prophylaxis: Heparin reason for continued hospitalization:ivf for leonie Time Spent With Patient Time: Total time managing care of this patient today ____ minutes. Quality Stroke Does the patient have a stroke diagnosis?: No VTE Prior VTE?: No VTE Risk Level:: Medical - moderate - high VTE Device Contraindication: Treatment Not Indicated VTE Drug Contraindication: N/A - Med Ordered
--- NOTE | 2023-06-20 11:37 | P.CDIM_ITS ---
PROVIDER RESPONSE TEXT: To clarify, the appropriate diagnosis supported by the clinical indicators: Hypokalemia QUERY TEXT: PHYSICIAN'S DOCUMENTATION REQUEST Date of Query: 06/20/2023 11:30 AM EDT Patient Name: Nereida Rowell Admit Date: 06/18/2023 Dear Nima Whitman, A review of the medical record indicates additional documentation may be needed. Please review below and update the documentation accordingly. Clinical Indicators: LAB FINDINGS 06/19 - potassium 2.9 L Klor-Con Based on the above, is there a diagnosis that correlates with these lab findings: Hypokalemia Labs indicate a diagnosis of (please specify) Other (explain)Clinically unable to determine (explain)Thank you, Parvin Novak, CCS, CDIS Use of terms such as suspected, likely, concern for, or probable (associated with a specific diagnosi s that is being evaluated, monitored, or treated as if it exists) are acceptable and can be coded in the inpatient se tting, when documented at the time of discharge. Please use your independent medical judgment in providing your response. THIS QUERY IS PART OF THE PERMANENT MEDICAL RECORD
--- NOTE | 2023-06-20 11:53 | MHC.CM.PN ---
PT is recommending STR; CM will follow.
--- NOTE | 2023-06-20 13:08 | HO.POSTANES ---
Post Anesthesia Evaluation Post Anesthesia Evaluation Date of Service: 06/20/23 Vital Signs: Vital Signs Temp Pulse Resp BP Pulse Ox O2 Del Method O2 Flow Rate 06/20/23 11:16 97.8 F 89 20 100/58 L 95 Room Air 06/20/23 08:52 94 Room Air 06/20/23 07:55 85 16 06/20/23 07:02 98.2 F 85 20 113/56 L 97 Nasal Cannula 2 06/20/23 03:14 96.9 F 79 20 91/52 L 96 Nasal Cannula 2 Anesthesia: General Mental Status: Awake Pain Control: Satisfactory Nausea/Vomiting: None Hydration: Adequate Anesthesia-Related Issues: No Anes. Related Issues
[2023-06-20] MEDS: Acetaminophen 325 MG TABLET 650 MG PO (18:08)
[2023-06-20] MEDS: Omeprazole 20 MG CAPSULE.DR PO (18:33)
[2023-06-20] MEDS: Zolpidem Tartrate 5 MG TABLET PO (21:07)
--- NOTE | 2023-06-20 21:53 | PM.PNNEP ---
Subjective Subjective Date of Service: 06/20/23 Principal diagnosis: Pt feels Ok Interval history: No CP Feels better Physical Exam Vital Signs: Vital Signs: Last Vital Signs Temp 97.3 F 06/20/23 19:02 Pulse 102 H 06/20/23 19:22 Resp 12 06/20/23 19:22 BP 97/53 L 06/20/23 19:02 Pulse Ox 92 06/20/23 19:02 O2 Del Method Room Air 06/20/23 19:02 O2 Flow Rate 2 06/20/23 07:02 BMI result Body Mass Index 19.1 Appearing in no acute distress lung sounds are clear to auscultation heart regular rate rhythm, clear S1, S2 positive bowel sounds, abdomen is soft, nontender neuro patient is alert x3, limitted rue rom Objective Data Labs 06/18/23 05:02 06/20/23 05:24 Labs: Laboratory Results - last 24 hr 06/20/23 05:24 Hold Purple Top SEE NOTE Sodium 138 Potassium 3.7 D Chloride 96 Carbon Dioxide 30 H Anion Gap 16 BUN 77 H Creatinine 2.80 H Estim Creat Clear Calc 12.8 Estimated GFR 16 Random Glucose 128 H Calcium 7.9 L Microbiology Microbiology Results: Microbiology 06/19/23 Unknown Urine Other - Kidney Right Urine Culture - Preliminary Gram negative jessica 06/19/23 Unknown Urine Catheterized - Straight Catheter Urine Culture - Preliminary Culture in progress. Procedures Date of Service Date of Service: 06/20/23 Assessment & Plan Assessment and plan (1) Acute kidney injury superimposed on CKD: Status: Acute Assessment and Plan: LEONIE - Renal hypoperfusion / Pre renal state RHydro - ? R better functoning kidney CKD- Stage 3 a at baseline R [place] Hyperkalemia Urine studies not c/w Prerenal state - Cr is better Urology eval IVF with NS Zarco Low K diet K is better No nephrotoxins Thx Dr. Marc (2) Hydronephrosis: Status: Acute Time Spent With Patient Time: Total time managing care of this patient today ____ minutes. Progress Note: Quality Stroke Does the patient have a stroke diagnosis?: No
[2023-06-21] VITALS (10 sets, daily range): BP systolic 93–105; BP diastolic 52–59; PULSE 88–108; RESP 14–24; TEMP 36.3–37.3; O2SAT 90–95
[2023-06-21] MEDS: 0.9 % Sodium Chloride 1,000 ML 50 ML IVCONT ×2 (00:43→21:16)
[2023-06-21] MEDS: Omeprazole 20 MG CAPSULE.DR PO (05:36)
[2023-06-21 05:58] LABS: Hematocrit 22.9 % (37.0-47.0); Hemoglobin 7.4 g/dl (12.0-16.0); Mean Corpuscular HGB Conc 32.3 g/dl (31.0-35.0); Mean Corpuscular Hemoglobin 30.8 pg (27.0-33.0); Mean Corpuscular Volume 95.4 fL (80.0-98.0); Mean Platelet Volume 10.5 fL (9.4-12.3); Platelet Count 174 X10*3/uL (160-400); Red Cell Distribution Width 14.7 % (11.0-16.0); White Blood Count 6.9 X10*3/uL (4.8-10.8)
[2023-06-21 06:11] LABS: Anion Gap 14 (12-20); Blood Urea Nitrogen 71 mg/dL (9-16); Calcium 7.2 mg/dL (8.4-10.2); Carbon Dioxide 30 mmol/L (22-29); Chloride 99 mmol/L (96-108); Estimated Glomerular Filt Rate 18; Glucose Fasting 94 mg/dL (60-99); Potassium 3.1 mmol/L (3.3-5.1); Sodium 140 mmol/L (135-145)
[2023-06-21] MEDS: 0.9 % Sodium Chloride Flush 3 ML SYRINGE IVFLUSH ×2 (09:14→17:29)
[2023-06-21] MEDS: cefTRIAXone sodium 1 GM in 0.9 % Sodium Chloride 50 ML IV (09:14)
[2023-06-21] MEDS: Potassium Chloride ER 20 MEQ TAB.ER.PRT 40 MEQ PO (09:14)
[2023-06-21] MEDS: Heparin Sodium,Porcine 5,000 UNIT/ML VIAL 5000 UNIT SUBCUT ×2 (09:14→21:16)
--- NOTE | 2023-06-21 11:29 | P.PNIM_ITS ---
Subjective Subjective Date of Service: 06/21/23 Interval History: weakness Physical Exam 2 Vital Signs: Vital Signs: Last Vital Signs Temp 97.9 F 06/21/23 11:01 Pulse 91 06/21/23 11:01 Resp 20 06/21/23 11:01 BP 104/55 L 06/21/23 11:01 Pulse Ox 93 06/21/23 11:01 O2 Del Method Room Air 06/21/23 11:01 O2 Flow Rate 1.5 06/21/23 07:53 BMI result Body Mass Index 19.1 Appearing in no acute distress lung sounds are clear to auscultation heart regular rate rhythm, clear S1, S2 positive bowel sounds, abdomen is soft, nontender neuro patient is alert x3, limitted rue rom Objective Data Active Medications Acetaminophen (Acetaminophen 325 Mg Tablet) 650 mg PO Q6H PRN PRN Reason: Pain, Mild (Pain Scale 1-3) Last Admin: 06/20/23 18:08 Dose: 650 mg Documented By: KOLE Albuterol/Ipratropium (Albuterol/Iprat 2.5/0.5mg 3 Ml Ampul.Neb) 3 ml INHALE RQ4H WHILE AWAKE [facility] Last Admin: 06/21/23 07:50 Dose: Not Given Documented By: RENETTA Non-Admin Reason: Patient Asleep Albuterol/Ipratropium (Albuterol/Iprat 2.5/0.5mg 3 Ml Ampul.Neb) 3 ml INHALE Q4H PRN PRN Reason: Wheezing Fentanyl (Fentanyl Citrate/Pf 100 Mcg/2 Ml Vial) 25 mcg IVPUSH Q5M PRN; Protocol PRN Reason: Pain, Moderate(Pain Scale 4-6) Heparin Sodium (Porcine) (Heparin Sodium,Porcine 5,000 Unit/Ml Vial) 5,000 unit SUBCUT Q12H [facility] Last Admin: 06/21/23 09:14 Dose: 5,000 unit Documented By: FARA Sodium Chloride (Ns) 1,000 mls @ 50 mls/hr IVCONT .Q20H [facility] Last Admin: 06/21/23 05:36 Dose: Not Given Documented By: SHERIDAN Non-Admin Reason: IV Running Ceftriaxone Sodium 1 gm/ (Sodium Chloride) 50 mls @ 100 mls/hr IV Q24H [facility] Last Infusion: 06/21/23 09:47 Dose: Infused Documented By: FARA Melatonin (Melatonin 3 Mg Tablet) 6 mg PO BEDTIME PRN PRN Reason: Insomnia Omeprazole (Omeprazole 20 Mg Capsule.Dr) 20 mg PO DAILY@0630 [facility] Last Admin: 06/21/23 05:36 Dose: 20 mg Documented By: SHERIDAN Ondansetron HCl (Ondansetron Hcl 4 Mg/2 Ml Vial) 4 mg IVPUSH Q8H PRN PRN Reason: Nausea and Vomiting Ondansetron HCl (Ondansetron Hcl 4 Mg/2 Ml Vial) 4 mg IVPUSH ONCE PRN PRN Reason: Nausea and Vomiting Potassium Chloride (Potassium Chloride Er 20 Meq Tab.Er.Prt) 40 meq PO DAILY [facility] Last Admin: 06/21/23 09:14 Dose: 40 meq Documented By: FARA Sodium Chloride (0.9 % Sodium Chloride Flush 3 Ml Syringe) 3 ml IVFLUSH QSHIFT [facility] Last Admin: 06/21/23 09:14 Dose: 3 ml Documented By: FARA Zolpidem Tartrate (Zolpidem Tartrate 5 Mg Tablet) 5 mg PO BEDTIME PRN PRN Reason: Insomnia Last Admin: 06/20/23 21:07 Dose: 5 mg Documented By: SHERIDAN Labs 06/21/23 05:34 06/21/23 05:34 Labs: Laboratory Results - last 24 hr 06/21/23 06/21/23 05:34 07:47 MCV 95.4 MCH 30.8 MCHC 32.3 RDW 14.7 Plt Count 174 D MPV 10.5 Absolute Nucleated RBC 0.000 Nucleated RBC % (auto) 0.0 Anion Gap 14 Estim Creat Clear Calc 14.0 Estimated GFR 18 Fasting Glucose 94 Calcium 7.2 L D Blood Type O Positive Antibody Screen NEGATIVE Antigen Identification K Antigen - NEGATIVE Crossmatch (AHG) See Detail Microbiology Microbiology Results: Microbiology 06/19/23 Unknown Urine Culture - Preliminary Urine Catheterized - Straight Catheter Gram negative jessica 06/19/23 Unknown Urine Culture - Final Urine Other - Kidney Right Klebsiella pneumoniae Assessment and Plan (1) Hydronephrosis: Status: Acute (2) Acute metabolic acidosis: Status: Acute (3) Acute kidney injury superimposed on CKD: Status: Acute Plan 83F PMH significant for?stage III colon cancer s/p resection February 2022 with ileostomy not on chemo and followed by Dr. Davis, hx of right breast cancer in 2009, COPD, microcytic anemia, and CKD3 who presented to the ED for evaluation of shortness of breath, weakness, and anorexia. admitted to the hospital for treatment and further evaluation of MELLISSA superimposed on CKD 3. Acute kidney injury superimposed on CKD 3, slowly trending down creatinine peak 5.69, now 2.54 combination of urinary retention dehydration from right uretheral stricture, hydronephrosis, s/p stent 06/19/23, continue ancef, follow up cultures Zarco cath for fluid management Follow BMP, gentle hydration Metabolic acidosis. resolved Initial VBG pH 7.20 with bicarb of 7 Patient placed on bicarb drip, VBG improved acute Hyperkalemia. Resolved now acute hypokalemia repleted, monitor anemia, acute supsect inflammatory transfuse 1 unit prbc, monitor Colon cancer S/P resection February 2022 with ileostomy Patient deferred chemo d/t weakness/age, followed by Dr. Davis CT of abdomen and pelvis with new multiple liver lesions of various sizes with the largest measuring 2.7 cm, likely metastasis Patient denies any abdominal pain, though has felt weak, short of breath, and had reduced appetite and p.o. intake the past month Oncology consult pending COPD stable debility - pt recommending STR Full Code Attending:?Dr. Guzman DVT Prophylaxis: Heparin reason for continued hospitalization:ivf for mellissa Time Spent With Patient Time: Total time managing care of this patient today ____ minutes. Quality Stroke Does the patient have a stroke diagnosis?: No VTE Prior VTE?: No VTE Risk Level:: Medical - moderate - high VTE Device Contraindication: Treatment Not Indicated VTE Drug Contraindication: N/A - Med Ordered
--- NOTE | 2023-06-21 13:49 | MHC.CM.PN ---
CM met with Patient to discuss PT's recommendation for STR. Patient has chosen and accepted [facility]'s bed offer. CM will follow.
[2023-06-21] MEDS: Albuterol/Iprat 2.5/0.5MG 3 ML AMPUL.NEB INHALE (19:46)
[2023-06-21] MEDS: Zolpidem Tartrate 5 MG TABLET PO (21:23)
[2023-06-22] VITALS (9 sets, daily range): BP systolic 102–118; BP diastolic 55–63; PULSE 92–99; RESP 16–20; TEMP 36.6–37.7; O2SAT 90–95
[2023-06-22] MEDS: Omeprazole 20 MG CAPSULE.DR PO (04:22)
[2023-06-22 05:55] LABS: Hematocrit 28.7 % (37.0-47.0); Hemoglobin 9.2 g/dl (12.0-16.0); Mean Corpuscular HGB Conc 32.1 g/dl (31.0-35.0); Mean Corpuscular Hemoglobin 31.5 pg (27.0-33.0); Mean Corpuscular Volume 98.3 fL (80.0-98.0); Mean Platelet Volume 10.5 fL (9.4-12.3); Platelet Count 194 X10*3/uL (160-400); Red Blood Count 2.92 X10*6/uL (4.20-5.50); Red Cell Distribution Width 15.2 % (11.0-16.0); White Blood Count 8.1 X10*3/uL (4.8-10.8)
[2023-06-22 06:16] LABS: Anion Gap 12 (12-20); Blood Urea Nitrogen 53 mg/dL (9-16); Calcium 7.6 mg/dL (8.4-10.2); Carbon Dioxide 26 mmol/L (22-29); Chloride 106 mmol/L (96-108); Creatinine Clr Calc Pharmacy 19.3; Estimated Glomerular Filt Rate 26; Glucose Fasting 93 mg/dL (60-99); Potassium 3.7 mmol/L (3.3-5.1); Sodium 140 mmol/L (135-145)
[2023-06-22] MEDS: Potassium Chloride ER 20 MEQ TAB.ER.PRT 40 MEQ PO (08:16)
[2023-06-22] MEDS: Acetaminophen 325 MG TABLET 650 MG PO ×2 (08:17→18:55)
[2023-06-22] MEDS: Heparin Sodium,Porcine 5,000 UNIT/ML VIAL 5000 UNIT SUBCUT ×2 (08:18→20:26)
[2023-06-22] MEDS: cefTRIAXone sodium 1 GM in 0.9 % Sodium Chloride 50 ML IV (08:18)
[2023-06-22] MEDS: 0.9 % Sodium Chloride Flush 3 ML SYRINGE IVFLUSH ×2 (08:20→20:26)
--- NOTE | 2023-06-22 09:41 | P.CNHO_ITS ---
Subjective - Subjective Chief complaint: CONSULT FOR: LIVER METS. COLON CANCER. BREAST CANCER. Patient: known to practice within the last 3 years Consult date: 06/22/23 Requesting Physician: sheng Primary Care Provider: Kriss De Leon NP Medical Summary: DIAGNOSIS: 1. NEW LIVER LESIONS. 2. COLON CANCER. 3. HISTORY OF BREAST CANCER. HPI - Consult Narrative Reason for consult: Consult for: 1. Liver lesions. 2. Colon cancer. 3. Breast cancer. Narrative: Nereida Rowell is a 83 year old lady admitted to the hospital, on 06/17. HPI: Pt has a PMH significant for?stage III colon cancer s/p resection February 2022 with ileostomy not on chemo,hx of right breast cancer in 2009, COPD, microcytic anemia, and CKD3. She presented for evaluation of shortness of breath, weakness, and anorexia. She felt very short of breath, experiencing dyspnea upon exertion, very weak with little strength and no appetite for the past month. She ?kept putting off coming to the hospital again and again? despite her family requesting her to do so. They finally convinced her so she finally came in.She had an episode or 2 of nausea with ?dry heaves? during the past month, but nothing prolonged or significant. Denies any orthopnea. Denies any pain. No chest pain/pressure, palpitations. Denies abdominal pain. Has not noticed any lower extremity edema. Patient also denies any known episodes of confusion or altered mental status noticed by either her or her family. Here she was afebrile, with heart rate of 98, and tachypneic up to 22. Labs were significant for leukocytosis of 12.1, H&H 11.1/33.7, sodium 132, potassium 6.1, bicarb 7, BUN>125, creatinine 5.69, initial troponin 25.2. VBG originally with metabolic acidosis of pH 7.20 with bicarb 10 with repeat improved to pH of 7.28 with bicarb 13. CXR showed hyperinflated lungs without acute process, and small to moderate-sized hiatal hernia. CT?of abdomen and pelvis found new multiple liver lesions of various sizes the largest measuring 2.7 cm and also found significant right hydroureteronephrosis with dilated ureter extending into the right pelvis and a right renal cyst. No signs of bowel obstruction or diverticulitis, cholelithiasis without cholecystitis. Also found diffuse emphysema with 6 mm lingular lung nodule. EKG demonstrated normal sinus rhythm without evidence of ST elevations or depressions. She was treated with Lokelma and calcium gluconate, omeprazole, and started on a bicarb drip. Was admitted to the hospital for treatment and further evaluation of LEONIE superimposed on CKD 3. Review of Systems 2 Review of Systems: She feels fatigued. No fever, chills. Anorexia, reduced p.o. intake Has dizziness. No headache. Denies chest pain/pressure, palpitations Shortness of breath, dyspnea upon exertion A couple of episodes of nausea and vomiting Denies abdominal pain Yes all other systems are reviewed and are negative [facility] Medical History: History of colon cancer Postoperative ileus Colon carcinoma Sepsis Bacteremia due to Gram-negative bacteria Chronic restrictive lung disease Emphysema lung Pulmonary nodule COPD (chronic obstructive pulmonary disease) Tachycardia Dyspnea GERD (gastroesophageal reflux disease) Anemia Wrist fracture, bilateral Osteoporosis Hypertension B12 deficiency Breast cancer Review of Systems - Constitutional Reports system reviewed and no additional complaints, except as documented - Eyes Reports system reviewed and no additional complaints, except as documented - ENT Reports system reviewed and no additional complaints, except as documented - Cardiovascular Reports system reviewed and no additional complaints, except as documented - Respiratory Reports no additional respiratory complaints - Gastrointestinal Reports system reviewed and no additional complaints, except as documented - Genitourinary Reports no additional female genitourinary complaints - Musculoskeletal Reports system reviewed and no additional complaints, except as documented - Integumentary/Breasts Skin/Breast: Reports no additional skin complaints - Neurologic Reports system reviewed and no additional complaints, except as documented, Reports as per HPI - Psychiatric Reports system reviewed and no additional complaints, except as documented - Endocrine Reports no additional endocrine complaints - Hematologic/Lymphatic Reports system reviewed and no additional complaints, except as documented - Allergic/Immunologic Reports system reviewed and no additional complaints, except as documented [facility] Medical History: Medical History (Last Reviewed 06/17/23 @ 20:23 by ORTEGA Maya) Anemia B12 deficiency Bacteremia due to Gram-negative bacteria Breast cancer Chronic restrictive lung disease Colon carcinoma COPD (chronic obstructive pulmonary disease) Dyspnea Emphysema lung GERD (gastroesophageal reflux disease) History of colon cancer Hypertension Osteoporosis Postoperative ileus Pulmonary nodule Sepsis Tachycardia Wrist fracture, bilateral Family History: Family History (Last Reviewed 06/17/23 @ 20:23 by ORTEGA Maya) Mother Vaginal cancer Maternal Aunt Breast cancer Surgical History: Surgical History (Last Reviewed 06/17/23 @ 20:23 by ORTEGA Maya) H/O colectomy H/O hysterectomy with oophorectomy History of appendectomy History of cataract surgery History of laparotomy History of lumpectomy of right breast Hx of colonoscopy Hx of esophagogastroduodenoscopy Hx of lumpectomy S/P excision of lipoma Status post exploratory laparotomy Social History: Social History (Last Reviewed 06/17/23 @ 20:23 by ORTEGA Maya) Living Situation History: Household Members: None Housing: House Are you a primary rn patient care to a significant other at home: No Do you presently have visiting nurse or other home services: No Tobacco History: Patient Tobacco Use Status: Former Tobacco user Tobacco use type: Cigarette Years Smoked: 25 years Smoke Quit Date: 1987 Second Hand Smoke Exposure: No Advance Directives: Advance Directives Date on File: 03/19/22 Occupation Assessmet: service: No Current occupational status: retired Current occupational status: disabled Current occupation: rt handed Home Medications and Allergies Current Medications: Current Medications Acetaminophen (Acetaminophen 325 Mg Tablet) 650 mg PO Q6H PRN PRN Reason: Pain, Mild (Pain Scale 1-3) Last Admin: 06/22/23 08:17 Dose: 650 mg Albuterol/Ipratropium (Albuterol/Iprat 2.5/0.5mg 3 Ml Ampul.Neb) 3 ml INHALE RQ4H WHILE AWAKE [facility] Last Admin: 06/22/23 07:28 Dose: Not Given Albuterol/Ipratropium (Albuterol/Iprat 2.5/0.5mg 3 Ml Ampul.Neb) 3 ml INHALE Q4H PRN PRN Reason: Wheezing Fentanyl (Fentanyl Citrate/Pf 100 Mcg/2 Ml Vial) 25 mcg IVPUSH Q5M PRN; Protocol PRN Reason: Pain, Moderate(Pain Scale 4-6) Heparin Sodium (Porcine) (Heparin Sodium,Porcine 5,000 Unit/Ml Vial) 5,000 unit SUBCUT Q12H [facility] Last Admin: 06/22/23 08:18 Dose: 5,000 unit Sodium Chloride (Ns) 1,000 mls @ 50 mls/hr IVCONT .Q20H [facility] Last Admin: 06/21/23 21:16 Dose: 50 mls/hr Ceftriaxone Sodium 1 gm/ (Sodium Chloride) 50 mls @ 100 mls/hr IV Q24H [facility] Last Admin: 06/22/23 08:18 Dose: 100 mls/hr Melatonin (Melatonin 3 Mg Tablet) 6 mg PO BEDTIME PRN PRN Reason: Insomnia Omeprazole (Omeprazole 20 Mg Capsule.Dr) 20 mg PO DAILY@0630 [facility] Last Admin: 06/22/23 04:22 Dose: 20 mg Ondansetron HCl (Ondansetron Hcl 4 Mg/2 Ml Vial) 4 mg IVPUSH Q8H PRN PRN Reason: Nausea and Vomiting Ondansetron HCl (Ondansetron Hcl 4 Mg/2 Ml Vial) 4 mg IVPUSH ONCE PRN PRN Reason: Nausea and Vomiting Potassium Chloride (Potassium Chloride Er 20 Meq Tab.Er.Prt) 40 meq PO DAILY [facility] Last Admin: 06/22/23 08:16 Dose: 40 meq Sodium Chloride (0.9 % Sodium Chloride Flush 3 Ml Syringe) 3 ml IVFLUSH QSHIFT [facility] Last Admin: 06/22/23 08:20 Dose: 3 ml Zolpidem Tartrate (Zolpidem Tartrate 5 Mg Tablet) 5 mg PO BEDTIME PRN PRN Reason: Insomnia Last Admin: 06/21/23 21:23 Dose: 5 mg Home Medications Medication Instructions Recorded Confirmed Type cholecalciferol (vitamin D3) 25 25 mcg PO DAILY 06/03/20 06/18/23 History mcg (1,000 unit) tablet ferrous sulfate 325 mg (65 mg 325 mg PO DAILY 06/03/20 06/18/23 History iron) tablet avollfuehehb-zvqwfwhy-dolnzx tablet 1 tab PO DAILY 06/03/20 06/18/23 History calcium carbonate 500 mg calcium 500 mg PO DAILY 03/07/22 06/18/23 History (1,250 mg) tablet cyanocobalamin (vitamin B-12) 1,000 mcg IM Q42D 03/19/22 06/18/23 History 1,000 mcg/mL injection solution vitamin E 268 mg (400 unit) capsule 268 mg PO DAILY 06/18/23 06/18/23 History Allergies Allergy/AdvReac Type Severity Reaction Status Date / Time meperidine [From Demerol] Allergy Mild VOMITING Verified 06/17/23 12:48 Physical Exam Vital signs: Vital Signs Temp 98.2 F 10/27/23 07:49 Pulse 99 06/22/23 07:49 Resp 20 06/22/23 07:49 BP 118/57 L 06/22/23 07:49 Pulse Ox 90 L 06/22/23 07:49 O2 Del Method Room Air 06/22/23 07:49 O2 Flow Rate 1.5 06/21/23 07:53 Intake & Output 06/21/23 06/22/23 06/22/23 18:59 06:59 18:59 Intake Total 980 / 2580 1600 / 2580 596.667 / 596.667 Output Total 550 / 1900 1350 / 1900 Balance 430 / 680 250 / 680 596.667 / 596.667 Urine Output (Average ml/kg/hr) 0.88 1.52 1.52 Intake: Intake, Oral Amount 480 / 1080 600 / 1080 Intake (Blood Product) Amount 350 / 350 Red Blood Cells (E0382) Unit 350 / 350 [id number] Intake, IV Amount 150 / 1150 1000 / 1150 596.667 / 596.667 0.9 % Sodium Chloride 100 ml @ 100 / 100 100 mls/hr IV ONCE ONE Rx#: [id number] Sodium Bicarbonate 8.4% 150 meq 596.667 / 596.667 In Dextrose 5 % 850 ml @ 100 mls/hr IV .Q10H [facility] Rx#: [id number] cefTRIAXone sodium 1 gm In 0.9 50 / 50 % Sodium Chloride 50 ml @ 100 mls/hr IV Q24H [facility] Rx#: [id number] 0.9 % Sodium Chloride 1,000 ml 1000 / 1000 @ 50 mls/hr IVCONT .Q20H [facility] Rx #:[id number] Output: Output, Stool Amount 400 / 400 Output, Urine Amount (Catheter) 550 / 1500 950 / 1500 Urethral 550 / 1500 950 / 1500 Other: Breakfast % Eaten 100% Lunch % Eaten 100% Number of Bowel Movements 0 Urine Urinal Urine Color Yellow Yellow Last Bowel Movement 06/22/23 Stool Ostomy Stool Amount Moderate Stool Color Black ([place]) Stool Consistency Liquid Weight 52.2 kg Hem/Onc Consult Result - Labs CBC & Chem 7: 06/23/23 06:22 06/23/23 06:22 Labs: Short CBC 06/22/23 Range/Units 05:23 WBC 8.1 (4.8-10.8) X10*3/uL Hgb 9.2 L D (12.0-16.0) g/dl Hct 28.7 L D (37.0-47.0) % Plt Count 194 (160-400) X10*3/uL BMP 06/22/23 05:23 Sodium 140 Potassium 3.7 Chloride 106 Carbon Dioxide 26 BUN 53 H Creatinine 1.85 H Calcium 7.6 L Assessment and Plan Patient Active problem list reviewed?: Yes (1) Colon carcinoma Status: Acute Assessment and plan: This is a pleasant 83 year-old lady with a previous history of breast cancer. She was diagnosed with colon cancer. Pathology revealed: Adenocarcinoma, moderate to poorly differentiated with mucinous features, extending in subserosa. Surgical margins negative. Metastatic carcinoma identified in 10/20 lymph nodes examined. Stage:pT3, N2b. CEA: 3.70. She was seen by Dr. Shirley on 08/02/22. His note: The patient has extensive emphysema and has significant deconditioning. Will benefit from starting pulmonary rehab at this time. Repeat CT scan of the chest in 3 months, to follow-up pulmonary nodules. Follow-up July 2022 or sooner if she develops any worsening symptoms CT scan of the chest, on 07/03: Several new left upper lobe nodules largest measuring 4 mm. Severe emphysema. Moderate size esophageal hernia. Increasing bilateral axillary lymphadenopathy. In general, adjuvant chemotherapy is recommended for lymph node positive disease. I did discuss the details of the regimen including potential side effects of treatment. However at that time, she felt that she is only starting to feel better and would not have liked to have a setback, if she gets the chemotherapy and has side effects: i.e.nausea, anorexia diarrhea and weight loss with failure to thrive. She would've been at risk of significant toxicity especially at her age with significant comorbidities. She said she will take her chances. She elected against it. CT scan of the chest abdomen from 02/16: 1. Stable pulmonary nodules. 2. No convincing evidence of metastatic disease in the abdomen or pelvis. 3. Incidental note made of unchanged tiny liver hypodensity, right renal angiomyolipoma, hiatal hernia, colonic diverticulosis, degenerative changes in the spine, hysterectomy, shotty retroperitoneal and iliac chain lymph nodes, and degenerative changes in the spine with grade 1 anterolisthesis L5 on S1. New multiple liver lesions of various sizes. Largest measuring 2.7). CT of the abdomen/pelvis from 06/17 revealed: Right mid quadrant colostomy without any signs of obstruction. Nonspecific minimal mural thickening involving medial loops in the right mid pelvis. Descending and left transverse colonic diverticulosis without diverticulitis. Cholelithiasis. Significant right hydroureteronephrosis with dilated ureter extending into the right pelvis. No obvious etiology seen. This could be secondary to postsurgical scarring. Correlate with history. May need a nephrostomy tube. Right renal cyst No osseous bony lesion seen. Diffuse emphysema with 6 mm lingular lung nodule. Serial CEA levels: 3.0, 4.2, 5.2, 34. CEA from today: 61. This is of concern. I have had discussions with her regarding adjuvant chemotherapy after her surgery for colon cancer. She had declined. It actually took her niece a month's to convince her to come into the hospital this time. She generally add nose her health. I shared the above results with her today. Mentioned the new liver lesions. Offered the palliative systemic chemotherapy. However she again declined. She feels her body is too weak for her to be able to tolerate chemotherapy treatment. She had questions about time frame. I told her it could be 6 months or less. PLAN: She is actually going to [facility] [place] [facility] tomorrow. I offered her hospice care. I discussed that with her niece Nora at: [phone]. She had questions about the hospice services. I have made a referral to hospice for an informational visit. They will be contacting care in later today. Thank you, Cc: - Time Spent With Patient Time Spent with Patient (in minutes): 30
--- NOTE | 2023-06-22 10:55 | HO.PM.IMPN ---
Subjective Subjective Date of Service: 06/22/23 Interval History: weakness Physical Exam Vital Signs: Vital Signs: Last Vital Signs Temp 98.2 F 06/22/23 07:49 Pulse 99 06/22/23 07:49 Resp 20 06/22/23 07:49 BP 118/57 L 06/22/23 07:49 Pulse Ox 90 L 06/22/23 07:49 O2 Del Method Room Air 06/22/23 07:49 O2 Flow Rate 1.5 06/21/23 07:53 BMI result Body Mass Index 19.1 Appearing in no acute distress lung sounds are clear to auscultation heart regular rate rhythm, clear S1, S2 positive bowel sounds, abdomen is soft, nontender neuro patient is alert x3, limitted rue rom Objective Data Active Medications Acetaminophen (Acetaminophen 325 Mg Tablet) 650 mg PO Q6H PRN PRN Reason: Pain, Mild (Pain Scale 1-3) Last Admin: 06/22/23 08:17 Dose: 650 mg Documented By: DEEPALI Albuterol/Ipratropium (Albuterol/Iprat 2.5/0.5mg 3 Ml Ampul.Neb) 3 ml INHALE RQ4H WHILE AWAKE [facility] Last Admin: 06/22/23 07:28 Dose: Not Given Documented By: RENETTA Non-Admin Reason: Patient Asleep Albuterol/Ipratropium (Albuterol/Iprat 2.5/0.5mg 3 Ml Ampul.Neb) 3 ml INHALE Q4H PRN PRN Reason: Wheezing Fentanyl (Fentanyl Citrate/Pf 100 Mcg/2 Ml Vial) 25 mcg IVPUSH Q5M PRN; Protocol PRN Reason: Pain, Moderate(Pain Scale 4-6) Heparin Sodium (Porcine) (Heparin Sodium,Porcine 5,000 Unit/Ml Vial) 5,000 unit SUBCUT Q12H [facility] Last Admin: 06/22/23 08:18 Dose: 5,000 unit Documented By: DEEPALI Sodium Chloride (Ns) 1,000 mls @ 50 mls/hr IVCONT .Q20H [facility] Last Admin: 06/21/23 21:16 Dose: 50 mls/hr Documented By: SHERIDAN Ceftriaxone Sodium 1 gm/ (Sodium Chloride) 50 mls @ 100 mls/hr IV Q24H [facility] Last Infusion: 06/22/23 09:59 Dose: Infused Documented By: DEEPALI Melatonin (Melatonin 3 Mg Tablet) 6 mg PO BEDTIME PRN PRN Reason: Insomnia Omeprazole (Omeprazole 20 Mg Capsule.Dr) 20 mg PO DAILY@0630 [facility] Last Admin: 06/22/23 04:22 Dose: 20 mg Documented By: DANNY Ondansetron HCl (Ondansetron Hcl 4 Mg/2 Ml Vial) 4 mg IVPUSH Q8H PRN PRN Reason: Nausea and Vomiting Ondansetron HCl (Ondansetron Hcl 4 Mg/2 Ml Vial) 4 mg IVPUSH ONCE PRN PRN Reason: Nausea and Vomiting Potassium Chloride (Potassium Chloride Er 20 Meq Tab.Er.Prt) 40 meq PO DAILY [facility] Last Admin: 06/22/23 08:16 Dose: 40 meq Documented By: DEEPALI Sodium Chloride (0.9 % Sodium Chloride Flush 3 Ml Syringe) 3 ml IVFLUSH QSHIFT [facility] Last Admin: 06/22/23 08:20 Dose: 3 ml Documented By: DEEPALI Zolpidem Tartrate (Zolpidem Tartrate 5 Mg Tablet) 5 mg PO BEDTIME PRN PRN Reason: Insomnia Last Admin: 06/21/23 21:23 Dose: 5 mg Documented By: SHERIDAN Labs 06/22/23 05:23 06/22/23 05:23 Labs: Laboratory Results - last 24 hr 06/21/23 06/22/23 07:47 05:23 MCV 98.3 H MCH 31.5 MCHC 32.1 RDW 15.2 Plt Count 194 MPV 10.5 Absolute Nucleated RBC 0.000 Nucleated RBC % (auto) 0.0 Anion Gap 12 Estim Creat Clear Calc 19.3 Estimated GFR 26 Fasting Glucose 93 Calcium 7.6 L Blood Type O Positive Antibody Screen NEGATIVE Antigen Identification K Antigen - NEGATIVE Crossmatch (AHG) See Detail Microbiology Microbiology Results: Microbiology 06/19/23 Unknown Urine Culture - Final Urine Catheterized - Straight Catheter Klebsiella pneumoniae 06/19/23 Unknown Urine Culture - Final Urine Other - Kidney Right Klebsiella pneumoniae Assessment and Plan (1) Hydronephrosis: Status: Acute (2) Acute metabolic acidosis: Status: Acute (3) Acute kidney injury superimposed on CKD: Status: Acute Plan 83F PMH significant for?stage III colon cancer s/p resection February 2022 with ileostomy not on chemo and followed by Dr. Davis, hx of right breast cancer in 2009, COPD, microcytic anemia, and CKD3 who presented to the ED for evaluation of shortness of breath, weakness, and anorexia. admitted to the hospital for treatment and further evaluation of MELLISSA superimposed on CKD 3. Acute kidney injury superimposed on CKD 3, slowly trending down creatinine peak 5.69, now 1.85 combination of urinary retention dehydration from right uretheral stricture, hydronephrosis, s/p stent 06/19/23, continue ancef, follow up cultures Zarco cath for fluid management Follow BMP, gentle hydration Metabolic acidosis. resolved Initial VBG pH 7.20 with bicarb of 7 Patient placed on bicarb drip, VBG improved acute Hyperkalemia. Resolved now acute hypokalemia repleted, monitor anemia, acute supsect inflammatory transfused 1 unit prbc 06/21/23, improved Colon cancer S/P resection February 2022 with ileostomy Patient deferred chemo d/t weakness/age, followed by Dr. Davis CT of abdomen and pelvis with new multiple liver lesions of various sizes with the largest measuring 2.7 cm, likely metastasis Patient denies any abdominal pain, though has felt weak, short of breath, and had reduced appetite and p.o. intake the past month Oncology consult pending COPD stable debility - pt recommending STR Full Code Attending:?Dr. Guzman DVT Prophylaxis: Heparin reason for continued hospitalization:ivf for mellissa Time Spent With Patient Time: Total time managing care of this patient today ____ minutes. Quality Stroke Does the patient have a stroke diagnosis?: No VTE Prior VTE?: No VTE Risk Level:: Medical - moderate - high VTE Device Contraindication: Treatment Not Indicated VTE Drug Contraindication: N/A - Med Ordered
--- NOTE | 2023-06-22 11:33 | MHC.CM.PN ---
EMR reviewed and per MD rounds, pt is not medically cleared for D/C at this time but will likely be cleared for D/C tomorrow. D/C plan continues to be STR at [facility]. CM will continue to follow.
[2023-06-22] MEDS: Albuterol/Iprat 2.5/0.5MG 3 ML AMPUL.NEB INHALE ×3 (11:35→19:48)
[2023-06-22] MEDS: 0.9 % Sodium Chloride 1,000 ML 50 ML IVCONT (17:19)
--- NOTE | 2023-06-22 18:12 | PC.NURSE ---
Addendum entered by Zoey Clinton RN 06/22/23 18:39: Patient was able to void 200ml at 1815, small amount leaked on to the pad. Original Note: Order to remove ambrose received. Ambrose d/c at 1015 patient tolerated procedure well. Voiding trail - due by 1615. Patient unable to void on her own, patient was encourage to move and declined stating she does not feel like she needs to go - purewick in place. Bladder scan at 1727 - there was 268ml - will encourage patient to get out of bed and will continue to monitor.
[2023-06-22] MEDS: Zolpidem Tartrate 5 MG TABLET PO (20:31)
--- NOTE | 2023-06-22 22:34 | P.PNNP_ITS ---
Subjective Subjective Date of Service: 06/22/23 Principal diagnosis: Pt feels Ok Interval history: weakness Physical Exam 2 Vital Signs: Vital Signs: Last Vital Signs Temp 97.9 F 06/22/23 19:51 Pulse 99 06/22/23 19:51 Resp 18 06/22/23 19:51 BP 110/63 06/22/23 19:51 Pulse Ox 93 06/22/23 19:51 O2 Del Method Room Air 06/22/23 19:51 O2 Flow Rate 1.5 06/21/23 07:53 BMI result Body Mass Index 19.1 Appearing in no acute distress lung sounds are clear to auscultation heart regular rate rhythm, clear S1, S2 positive bowel sounds, abdomen is soft, nontender neuro patient is alert x3, limitted rue rom Objective Data Labs 06/22/23 05:23 06/22/23 05:23 Labs: Laboratory Results - last 24 hr 06/22/23 05:23 WBC 8.1 RBC 2.92 L D Hgb 9.2 L D Hct 28.7 L D MCV 98.3 H MCH 31.5 MCHC 32.1 RDW 15.2 Plt Count 194 MPV 10.5 Absolute Nucleated RBC 0.000 Nucleated RBC % (auto) 0.0 Sodium 140 Potassium 3.7 Chloride 106 Carbon Dioxide 26 Anion Gap 12 BUN 53 H Creatinine 1.85 H Estim Creat Clear Calc 19.3 Estimated GFR 26 Fasting Glucose 93 Calcium 7.6 L Carcinoembryonic Ag 61.10 Microbiology Microbiology Results: Microbiology 06/19/23 Unknown Urine Catheterized - Straight Catheter Urine Culture - Final Klebsiella pneumoniae 06/19/23 Unknown Urine Other - Kidney Right Urine Culture - Final Klebsiella pneumoniae Procedures Date of Service Date of Service: 06/22/23 Assessment & Plan Assessment and plan (1) Acute kidney injury superimposed on CKD: Status: Acute Assessment and Plan: LEONIE - Renal hypoperfusion / Pre renal state RHydro - ? R better functoning kidney CKD- Stage 3 a at baseline R [place] Hyperkalemia Urine studies not c/w Prerenal state - Cr is better-1.8 Keep pt hydrated K is better No nephrotoxins Will sign off Thx Dr. Marc (2) Hydronephrosis: Status: Acute Time Spent With Patient Time: Total time managing care of this patient today ____ minutes. Progress Note: Quality Stroke Does the patient have a stroke diagnosis?: No
[2023-06-23 00:12] VITALS: BP 109/55; PULSE 97; RESP 20; TEMP 36.7; O2SAT 92
[2023-06-23] MEDS: Omeprazole 20 MG CAPSULE.DR PO (05:24)
[2023-06-23 07:09] LABS: Hematocrit 28.6 % (37.0-47.0); Hemoglobin 9.1 g/dl (12.0-16.0); Mean Corpuscular HGB Conc 31.8 g/dl (31.0-35.0); Mean Corpuscular Hemoglobin 31.3 pg (27.0-33.0); Mean Corpuscular Volume 98.3 fL (80.0-98.0); Mean Platelet Volume 10.6 fL (9.4-12.3); Platelet Count 194 X10*3/uL (160-400); Red Blood Count 2.91 X10*6/uL (4.20-5.50); Red Cell Distribution Width 15.2 % (11.0-16.0); White Blood Count 7.5 X10*3/uL (4.8-10.8)
[2023-06-23] MEDS: Albuterol/Iprat 2.5/0.5MG 3 ML AMPUL.NEB INHALE (07:23)
[2023-06-23 07:25] VITALS: PULSE 94; RESP 18; O2SAT 98
[2023-06-23 07:30] LABS: Anion Gap 13 (12-20); Blood Urea Nitrogen 40 mg/dL (9-16); Calcium 7.9 mg/dL (8.4-10.2); Carbon Dioxide 23 mmol/L (22-29); Chloride 109 mmol/L (96-108); Creatinine Clr Calc Pharmacy 22.3; Estimated Glomerular Filt Rate 31; Glucose Fasting 91 mg/dL (60-99); Potassium 3.9 mmol/L (3.3-5.1); Sodium 141 mmol/L (135-145)
[2023-06-23 07:34] VITALS: BP 119/64; PULSE 95; RESP 18; TEMP 37.2; O2SAT 95
[2023-06-23 07:40] VITALS: O2SAT 95
--- NOTE | 2023-06-23 08:31 | P.DS_ITS ---
DS: Providers Provider Date of Service: 06/23/23 Date of admission: 06/17/23 20:00 Primary care physician: Kriss De Leon NP Consults: 06/17/23 16:24 Consult to Nephrology Stat Consulting Provider: Zoey Cobb Reason for consultation: LEONIE on CKD Has provider been notified: Yes 06/17/23 20:13 Consult to Hematology / Oncology Routine Consulting Provider: Daksha Davis Reason for consultation: Pt w/colon cancer, CT w/new liver lesions 06/18/23 10:56 Consult to Urology Routine Consulting Provider: Yaya Willaimson Reason for consultation: Right hydronephrosis 06/22/23 07:16 Consult to Hematology / Oncology Routine Consulting Provider: [facility] Oncology/Hematology Reason for consultation: ?liver mets DS: Diagnosis Discharge Diagnosis (1) Acute kidney injury superimposed on CKD: Status: Acute (2) Hydronephrosis: Status: Acute DS: Summary Hospital Course Hospital Course: from initial hpi: 83-year-old female with a PMH significant for?stage III colon cancer s/p resection February 2022 with ileostomy not on chemo and followed by Dr. Davis, hx of right breast cancer in 2009, COPD, microcytic anemia, and CKD3 who presents to the ED for evaluation of shortness of breath, weakness, and anorexia. Patient states that she been very short of breath, experiencing dyspnea upon exertion, been very weak with little strength and almost no appetite for the past month. Patient says she ?kept putting off coming to the hospital again and again? despite her family requesting her to do so. They finally convinced her last night and so she presented to the hospital this morning for evaluation. Patient states she had an episode or 2 of nausea with ?dry heaves? during the past month, but nothing prolonged or significant. Denies any orthopnea. Denies any pain. No chest pain/pressure, palpitations. Denies abdominal pain. Has not noticed any lower extremity edema. Patient also denies any known episodes of confusion or altered mental status noticed by either her or her family. In the ED the patient was afebrile, with heart rate of 98, and tachypneic up to 22. Labs were significant for leukocytosis of 12.1, H&H 11.1/33.7, sodium 132, potassium 6.1, bicarb 7, BUN>125, creatinine 5.69, initial troponin 25.2. VBG originally with metabolic acidosis of pH 7.20 with bicarb 10 with repeat improved to pH of 7.28 with bicarb 13. CXR showed hyperinflated lungs without acute process, and small to moderate-sized hiatal hernia. CT?of abdomen and pelvis found new multiple liver lesions of various sizes the largest measuring 2.7 cm and also found significant right hydroureteronephrosis with dilated ureter extending into the right pelvis and a right renal cyst. No signs of bowel obstruction or diverticulitis, cholelithiasis without cholecystitis. Also found diffuse emphysema with 6 mm lingular lung nodule. EKG demonstrated normal sinus rhythm without evidence of ST elevations or depressions. Pt was treated with Lokelma and calcium gluconate, omeprazole, and started on a bicarb drip. Pt will be admitted to the hospital for treatment and further evaluation of LEONIE superimposed on CKD 3. hospital course: Patient was admitted for acute kidney injury superimposed on CKD 3. Likely mostly urinary retention from right ureteral stricture with hydronephrosis in combination with dehydration, patient underwent stent placement on 06/19. Creatinine improved significantly. Urine cultures grew Klebsiella. For UTI she she was ceftriaxone and will be discharged on 5 more days of cefuroxime. Acute metabolic acidosis due to LEONIE she improved with bicarb drip. For acute hyperkalemia due to LEONIE this resolved. For acute inflammatory anemia she received 1 unit of PRBC and hemoglobin improved appropriately. For history of colon breast CA now with suspicious liver lesions she was seen by Oncology. Patient was not interested in further workup or treatment and is being referred for hospice informational. Her COPD remained stable. [facility]. She should follow up with Urology . Time Spent with Patient Time attestation: Total time managing care of this patient today ____ minutes. Discharge coordination time: Greater than 30 minutes Quality: Safe Use of Opioids Does Pt have an Active Cancer Diagnosis on the Problem List?: Yes Opioid Measure Date for [facility] Report: 05/24/23 Opioid Measure Time for [facility] Report: 08:31 Quality: Stroke Does the patient have a stroke diagnosis?: No Physical Exam Vital Signs: Vital Signs: Last Vital Signs Temp 98.9 F 06/23/23 07:34 Pulse 95 06/23/23 07:34 Resp 18 06/23/23 07:34 BP 119/64 06/23/23 07:34 Pulse Ox 95 06/23/23 07:40 O2 Del Method Room Air 06/23/23 07:40 O2 Flow Rate 1.5 06/21/23 07:53 BMI result Body Mass Index 19.1 Appearing in no acute distress lung sounds are clear to auscultation heart regular rate rhythm, clear S1, S2 positive bowel sounds, abdomen is soft, nontender neuro patient is alert x3, limitted rue rom DS: Data Data Completed and Pending Completed studies during hospitalization [Text1]: Procedures Bypass Ileum to Cutaneous, Open Approach (03/07/22) Bypass Transverse Colon to Cutaneous with Autologous Tissue Substitute, Open Approach (03/07/22) Excision of Right Large Intestine, Open Approach (03/07/22) Insertion of Infusion Device into Superior Vena Cava, Percutaneous Approach (03/19/22) Transfusion of Nonautologous Red Blood Cells into Peripheral Vein, Percutaneous Approach (03/19/22) Ultrasonography of Superior Vena Cava, Guidance (03/19/22) Labs on day of discharge: Laboratory Results - last 24 hr 06/22/23 06/23/23 05:23 06:22 WBC 7.5 RBC 2.91 L Hgb 9.1 L Hct 28.6 L MCV 98.3 H MCH 31.3 MCHC 31.8 RDW 15.2 Plt Count 194 MPV 10.6 Absolute Nucleated RBC 0.000 Nucleated RBC % (auto) 0.0 Sodium 141 Potassium 3.9 Chloride 109 H Carbon Dioxide 23 Anion Gap 13 BUN 40 H Creatinine 1.60 H Estim Creat Clear Calc 22.3 Estimated GFR 31 Fasting Glucose 91 Calcium 7.9 L Carcinoembryonic Ag 61.10 Discharge Plan Discharge Anticipated Discharge Date/Time: 06/23/23 08:28 Patient Disposition: Xfer SNF Discharge Diagnosis: urinary retention, uti Referrals: Yaya Williamson MD [Physician] - 1 Week Kriss De Leon NP [Primary Care Provider] - 1 Week Daksha Davis MD [Physician] - 1 Week Discharge Medications: New cefuroxime axetil 250 mg tablet 250 mg PO BID Qty: 10 0RF Continued omeprazole 20 mg capsule,delayed release(DR/EC) 20 mg PO BID Qty: 60 2RF ferrous sulfate 325 mg (65 mg iron) Tablet 325 mg PO DAILY [id number] Tablet 1 tab PO DAILY cholecalciferol (vitamin D3) 25 mcg (1,000 unit) Tablet 25 mcg PO DAILY cyanocobalamin (vitamin B-12) 1,000 mcg/mL Solution 1,000 mcg IM Q42D Rx Instructions: EVERY 6 WEEKS calcium carbonate 500 mg calcium (1,250 mg) Tablet 500 mg PO DAILY vitamin E 268 mg (400 unit) Capsule 268 mg PO DAILY Discontinued hydrochlorothiazide 25 mg tablet 25 mg PO DAILY Discharge Orders: Discharge Order (Routine); Ordered 06/23/23 Ordered By: Nima Whitman Diet: Advance to usual diet Activity on Discharge: As tolerated Stand Alone Forms: Patient Portal Discharge page Care Plan Goals: recovery Health Concerns: urinary retnetnion, uti, likely metastatic cancer Plan of Treatment: 5 more days cefitn, follow up with urology, oncology Assessment: see above
[2023-06-23] MEDS: cefTRIAXone sodium 1 GM in 0.9 % Sodium Chloride 50 ML IV (08:56)
[2023-06-23] MEDS: Potassium Chloride ER 20 MEQ TAB.ER.PRT 40 MEQ PO (08:56)
[2023-06-23] MEDS: Heparin Sodium,Porcine 5,000 UNIT/ML VIAL 5000 UNIT SUBCUT (08:57)
[2023-06-23] MEDS: 0.9 % Sodium Chloride Flush 3 ML SYRINGE IVFLUSH (08:57)
[2023-06-23] MEDS: Acetaminophen 325 MG TABLET 650 MG PO (09:09)
--- NOTE | 2023-06-23 09:39 | MHC.CM.PN ---
Addendum entered by Sayra Acosta 06/23/23 10:28: No response received via careport re patient discharge and transfer to [facility] today.. The facility has been contacted directly via Phone. The bilingual receptionist Tomasa,has been notified of the transfer. She sent call to 2nd floor nurses station. A traveling nurse took the message re patient admit and transfer time. She stated that she will call intake. CM instructed to anticipate communication via Careport. Original Note: IMM 06/23/23 Patient is discharged to [facility] today. All discharge information has been sent to the facility via Careport. Transport via BLS is booked for 1pm. The building has been notified of the discharge and transport time.
--- NOTE | 2023-06-24 04:38 | CONS_ITS ---
DATE OF SERVICE: 06/18/2023 REASON FOR CONSULTATION: Consult requested by the medical team to evaluate and help in management of patient with acute kidney injury. HISTORY OF PRESENT ILLNESS: The patient is an 83-year-old female with past medical history of stage III colon CA, status post resection in February with ileostomy for which she has not had chemo, followed by Dr. Davis; history of right breast CA; COPD; microcytic anemia; history of CKD stage 3 at baseline with a baseline creatinine ranging around 1.2-1.3, who presents to the hospital with complaints of shortness of breath, dyspnea on exertion, weakness. Apparently, she is not coming to the hospital. She has had no appetite and decreased p.o. intake. She apparently had and nausea as well. There is no orthopnea. There is no chest pain, palpitation. Denies any abdominal pain. There was no lower extremity edema. She was seen in the emergency room and was hemodynamically stable. Lab works were consistent with hyponatremia, sodium 132, BUN of more than 125, creatinine of 5.69. Chest x-ray showed hyperinflated lungs. CT scan of the abdomen and pelvis showed multiple liver lesions. She had hyperkalemia and was treated with Lokelma. Potassium of 6.1. She also had calcium gluconate. She was placed on a bicarb drip and admitted to the hospital. Renal consult has been requested to help with management of her renal insufficiency. This morning, her bicarb is improved to 17 with potassium 4.3. Creatinine was 5.17. REVIEW OF SYSTEMS: As noted above. Other system reviewed negative. PAST MEDICAL HISTORY: History of stage III colon CA, status post resection in February 2022 with ileostomy without any chemo, followed by Dr. Davis; history of gram-negative bacteremia sepsis; chronic restrictive lung disease; emphysematous lung; pulmonary nodules; COPD; tachycardia; GERD; anemia, history of osteoporosis; hypertension; B12 deficiency; breast CA. FAMILY HISTORY: Mother with vaginal cancer. Maternal aunt with breast cancer. PAST SURGICAL HISTORY: Includes exploratory laparotomy, left lumpectomy, history of excision of lipoma, appendectomy, colectomy, hysterectomy and oophorectomy, cataract surgery. PERSONAL AND SOCIAL HISTORY: Patient is an ex-smoker, quit many years ago. Does not drink alcohol. ALLERGIES: PATIENT IS ALLERGIC TO . HOME MEDICATIONS: Reviewed. INPATIENT MEDICATIONS: Reviewed. PHYSICAL EXAMINATION: GENERAL: Patient is resting in the bed. Awake, alert, oriented x3. VITAL SIGNS: Blood pressure was 114/63, pulse 89, afebrile. HEENT/NECK: Shows pupils equal, round, and reactive bilaterally to light. No jugular venous distention is noted. Neck was supple. No jugular venous distension was noted. Mucosa dry. There is no scleral icterus or conjunctival congestion. CARDIOVASCULAR SYSTEM: S1, S2 without rub or murmur. RESPIRATORY SYSTEM: Decreased in bases. No crepitation or rhonchi was noted. ABDOMEN: Soft, nontender. Bowel sounds normal. Ostomy is noted. EXTREMITIES: Show no edema. LABORATORY DATA: Labs done today, WBCs 9.8, hemoglobin 9.1, hematocrit 26.8, platelets 233. Sodium 134, potassium 4.3, chloride 102, CO2 17, BUN 115, creatinine 5.17, glucose 132. IMPRESSION: Elderly female with acute kidney injury. 1. Acute kidney injury in this patient likely secondary to prerenal azotemia in the setting of decreased p.o. intake. The patient has a right hydro and that could be obstructive component as well. I doubt the patient has acute glomerulonephritis/interstitial disease. 2. Chronic kidney disease stage 3, at baseline in the setting of longstanding hypertension and age-related changes. 3. Right-sided hydronephrosis. 4. Hyperkalemia. 5. Metabolic acidosis. RECOMMENDATIONS: At this juncture, I ordered spot urine for electrolytes, protein, and creatinine. Continued IV fluids with bicarb. Urology evaluation. We will place the patient on low-potassium diet and potassium has already improved. Avoid nephrotoxins on this patient. Thank you for allowing me to participate in medical management of this patient. MD POLO Finley/ROBIN / [phone]
== END 2023-06-23 14:30 | disposition skilled nursing facility (03) | DRG 660 ==
LOC: HO.ED 16:31 → HO.EDOVER 20:01 → HO.IMC 06-18 23:00
PROVIDERS: Emergency Medicine; Internal Medicine Medical Oncology; Nurse Practitioner Acute Care; Physician Assistant; Student in an Organized Health Care Education/Training Program; Urology; Admitting Provider Student in an Organized Health Care Education/Training Program; Emergency Provider Emergency Medicine; PCP Nurse Practitioner Family; Visit Provider Internal Medicine
PROC: 0T768DZ Dilation of Right Ureter with Intraluminal Device, Via Natural or Artificial Opening Endoscopic (ICD-10-PCS; principal; 2023-06-19 13:30)
DX: N13.6 Pyonephrosis (principal); C18.9 Malignant neoplasm of colon, unspecified; E87.21 Acute metabolic acidosis; C78.7 Secondary malignant neoplasm of liver and intrahepatic bile duct; E44.0 Moderate protein-calorie malnutrition; Z68.1 Body mass index [BMI] 19.9 or less, adult; C77.8 Secondary and unspecified malignant neoplasm of lymph nodes of multiple regions; N17.9 Acute kidney failure, unspecified; E86.0 Dehydration; N18.31 Chronic kidney disease, stage 3a; E87.6 Hypokalemia; I12.9 Hypertensive chronic kidney disease with stage 1 through stage 4 chronic kidney disease, or unspecified chronic kidney disease; D63.0 Anemia in neoplastic disease; D63.1 Anemia in chronic kidney disease; B96.1 Klebsiella pneumoniae [K. pneumoniae] as the cause of diseases classified elsewhere; J43.9 Emphysema, unspecified; Z20.822 Contact with and (suspected) exposure to COVID-19; Z87.891 Personal history of nicotine dependence; E87.5 Hyperkalemia; Z85.3 Personal history of malignant neoplasm of breast; Z93.2 Ileostomy status; Z79.899 Other long term (current) drug therapy
CPT/HCPCS: 36415; 71045; 74176; 80048; 80076; 82378; 82570; 82803; 83735; 83880; 83935; 84145; 84300; 84484; 85007; 85025; 85027; 85379; 85610; 85730; 86850; 86900; 86901; 86902; 86905; 86920; 86922; 87086; 87088; 87186; 87635; 93005; 94640; 97162; 97530; 99285; C1758; C1769; C2617; J0613; J0690; J0696; J1100; J1643; J1650; J2371; J2405; J3010; P9016; Q9967

== ENCOUNTER → 2023-06-17 20:00 | Outpatient (BNV) | payer MEDICARE, SELFPAY | PROVIDERS: Admitting Provider Student in an Organized Health Care Education/Training Program; Emergency Provider Emergency Medicine; Visit Provider Urology | DX: N13.1 Hydronephrosis with ureteral stricture, not elsewhere classified (principal); R82.81 Pyuria | CPT/HCPCS: 52332; 74420; 99222 ==

== ENCOUNTER → 2023-06-17 20:00 | Outpatient (BNV) | payer MEDICARE, SELFPAY | PROVIDERS: Admitting Provider Student in an Organized Health Care Education/Training Program; Emergency Provider Emergency Medicine; PCP Nurse Practitioner Family; Visit Provider Internal Medicine Medical Oncology | DX: C18.9 Malignant neoplasm of colon, unspecified (principal) | CPT/HCPCS: 99222 ==

== ENCOUNTER → 2023-06-17 20:00 | Outpatient (BNV) | payer MEDICARE, SELFPAY | PROVIDERS: Admitting Provider Student in an Organized Health Care Education/Training Program; Emergency Provider Emergency Medicine; Visit Provider Student in an Organized Health Care Education/Training Program | DX: N17.9 Acute kidney failure, unspecified (principal); N18.30 Chronic kidney disease, stage 3 unspecified; N13.30 Unspecified hydronephrosis | CPT/HCPCS: 99223; 99232; 99233; 99239 ==

== ENCOUNTER 2023-08-02 11:00 | Outpatient (RCR) | payer MEDICARE, SELFPAY ==
[2020-06-03 08:14] VITALS: BP 163/72; PULSE 93; RESP 20; TEMP 36.1; O2SAT 98; BMI 25.2
[2020-06-03 09:13] LABS: MANUAL DIFF FLAG NO
--- NOTE | 2020-06-03 09:14 | XR_ITS ---
EXAMINATION: XR CHEST CLINICAL INFORMATION: Shortness of breath. Dyspnea on exertion. COMPARISON: None TECHNIQUE: PA and lateral views of the chest were obtained. FINDINGS: Lungs are hyperexpanded. Architectural distortion and hyperlucency in the upper lobes is suggested of pulmonary emphysema. Pleural parenchymal scarring is noted at the lung apices. No focal airspace consolidation. There is a rounded double density overlying the lower mediastinum/cardiac silhouette which may correspond to a hernia. Cardiac and mediastinal contours are otherwise normal. Pulmonary vasculature is normal. No acute osseous abnormalities. Mild hyperkyphosis in the upper thoracic spine. No acute osseous findings. IMPRESSION: 1. Pulmonary hyperexpansion and architectural distortion in the upper lobes as can be seen with emphysema. 2. No acute pulmonary consolidation. 3. Double density overlying the cardiac silhouette, raising the possibility of a hiatal hernia.
[2020-06-03 09:22] LABS: Basophils Percent Auto 0.5 % (0-2); Eosinophils Percent Auto 0.5 % (0-4); Hematocrit 26.1 % (37-47); Imm Gran Abs Auto 0.02 X10*3/uL (0.00-0.03); Imm Gran Pct Auto 0.5 % (0.0-0.4); Lymphocytes Percent Auto 27.2 % (20-40); Mean Corpuscular HGB Conc 28.4 g/dl (31.0-35.0); Mean Corpuscular Volume 73.9 fL (80-98); Mean Platelet Volume 10.5 fL (9.4-12.3); Monocytes Absolute Auto 0.5 X10*3/uL (0.1-1.2); Monocytes Percent Auto 12.7 % (2-11); Neutrophils Absolute Auto 2.2 X10*3/uL (2.0-8.3); Neutrophils Percent Auto 58.6 % (45-73); Platelet Count 312 X10*3/uL (160-400); Red Blood Count 3.53 X10*6/uL (4.20-5.50); White Blood Count 3.8 X10*3/uL (4.8-10.8)
[2020-06-03 09:31] LABS: Hemoglobin 7.4 g/dl (12.0-16.0)
[2020-06-03 10:03] LABS: Alanine Aminotransferase 10 U/L (0-31); Albumin Level 4.3 g/dL (3.5-5.0); Alkaline Phosphatase 69 U/L (39-117); Anion Gap 14 (12-20); Aspartate Amino Transferase 14 U/L (5-31); Bilirubin Total 0.9 mg/dL (0.0-1.0); Blood Urea Nitrogen 26 mg/dL (9-16); Calcium 9.1 mg/dL (8.4-10.2); Carbon Dioxide 24 mmol/L (22-29); Chloride 106 mmol/L (96-108); Creatinine Clr Calc Pharmacy 42.8; Estimated Glomerular Filt Rate 51; Glucose Random 96 mg/dL (60-115); Potassium 4.1 mmol/l (3.3-5.1); Sodium 140 mmol/L (135-145); Total Protein 6.6 g/dL (6.5-8.0)
[2020-06-03 10:25] LABS: Vitamin D 25-OH Total 29.2 ng/mL (>30)
--- NOTE | 2020-06-03 12:55 | P.PNHO_ITS ---
Medical Summary - Medical Summary Chief complaint: Follow-up for: 1. Right breast cancer. 2. anemia. Medical Summary: DIAGNOSES: 1. Stage I invasive ductal Carcinoma, right breast. 2. A 0.8 cm ER-positive, MA-positive, HER-2/melina negative by FISH. 3. Benign sentinel nodes. 4. Stage pT1bN0 (i-). CURRENT THERAPY: Tamoxifen started October 2009 completed 5 years in December 2014. Interval History Interval history: 80 year-old lady, she is here for a followup visit. Recently she has noticed shortness of breath especially on exertion. She actually saw Kriss De Leon yesterday. She ordered a chest x-ray. She denies any previous history of asthma or COPD. She has no major complaints today. Denies any changes in her medical history nor medications. She tells me that she had been on Fosamax, for several years. She recently stopped it. She has had her bone density, May,. It was consistent with osteoporosis. She denies any breast related complaints. No chest pain nor shortness of breath. She has not had any nausea vomiting heartburn indigestion or abdominal pain. She denies constipation. Denies seeing any gross blood in the stools. She enjoys a good appetite, her weight is up. Her energy level is good. The rest of the review of systems is unremarkable. She is an early riser. She wakes up around 5 AM. She watches news on TV and has her morning cup of coffee. Review of Systems - Constitutional Reports system reviewed and no additional complaints, except as documented, Reports fatigue - Eyes Reports system reviewed and no additional complaints, except as documented - ENT Reports system reviewed and no additional complaints, except as documented - Cardiovascular Reports system reviewed and no additional complaints, except as documented - Respiratory Reports as per HPI, Reports dyspnea on exertion - Gastrointestinal Reports system reviewed and no additional complaints, except as documented - Genitourinary Reports no additional female genitourinary complaints - Musculoskeletal Reports system reviewed and no additional complaints, except as documented - Neurologic Reports system reviewed and no additional complaints, except as documented, Rep orts as per HPI, Reports hearing normal - Psychiatric Reports system reviewed and no additional complaints, except as documented [facility] Medical History: Medical History (Last Updated 06/03/20 @ 13:03 by Daksha Davis MD) B12 deficiency Breast cancer Hypertension Osteoporosis Wrist fracture, bilateral Patient : No Family History: Family History (Last Reviewed 06/03/20 @ 13:13 by Daksha Davis MD) Other Vaginal cancer Surgical History: Surgical History (Last Updated 06/03/20 @ 13:03 by Daksha Davis MD) H/O colectomy H/O hysterectomy with oophorectomy History of appendectomy History of cataract surgery History of lumpectomy of right breast Smoking status: Former smoker Packs per day: 1 Cigarettes per day: 20.0 Years smoked: 21 Alcohol intake frequency: holidays/special occasions only Home Medications and Allergies Home Medications Medication Instructions Recorded Confirmed Type calcium 500 mg PO BID 06/03/20 06/03/20 History cholecalciferol (vitamin D3) 25 mcg PO DAILY 06/03/20 06/03/20 History cyanocobalamin (vitamin B-12) 1,000 mcg IM QMONTH 06/03/20 06/03/20 History [B-12 Compliance] famotidine 20 mg PO BID 06/03/20 06/03/20 History ferrous sulfate 325 mg PO DAILY 06/03/20 06/03/20 History hydrochlorothiazide 25 mg PO DAILY 06/03/20 06/03/20 History yrabbfvpwqnl-yqolotmp-ereywp 1 tab PO DAILY 06/03/20 06/03/20 History [Centrum Silver] tizanidine 4 mg PO BEDTIME PRN 06/03/20 06/03/20 History Allergies Allergy/AdvReac Type Severity Reaction Status Date / Time meperidine [From Demerol] Allergy Mild VOMITING Verified 06/03/20 08:26 Exam Vital signs: Vital Signs Temp 97.0 F 06/03/20 08:14 Pulse 93 06/03/20 08:14 Resp 20 06/03/20 08:14 BP 163/72 H 06/03/20 08:14 Pulse Ox 98 06/03/20 08:14 Intake & Output 06/02/20 06/03/20 06/03/20 18:59 06:59 18:59 Other: Weight 68.946 kg Weight 68.946 kg Body Mass Index 25.2 - Constitutional Present: no acute distress - Routine HEENT Exam Head: Present: normal inspection ENT: Present: mucous membranes moist - Routine Neck Exam Present: full ROM - Routine Chest/Breast/Axilla Exam Breast: Present: Normal Exam - Routine Respiratory Exam Present: CTAB - Routine Cardiovascular Exam Cardiovascular: Present: RRR, S1, S2 - Routine Abdominal Exam Present: soft, nontender - Routine Rectal Exam Patient deferred: digital exam - Routine Extremities Exam Present: nontender - Routine Back/Spine/Pelvis Exam Back/Spine: Absent: CVA tenderness - Routine Neurological Exam Present: alert, oriented X3 - Detailed Neurological Exam: Coma Scale Eye Opening: Spontaneous (4) - Routine Psychiatric Exam Present: normal affect Data - Labs CBC & Chem 7: 06/03/20 08:42 06/03/20 08:42 Labs: Laboratory Results - last 24 hr 06/03/20 06/03/20 08:42 08:42 WBC 3.8 L RBC 3.53 L Hgb 7.4 L Hct 26.1 L MCV 73.9 L MCH 21.0 L MCHC 28.4 L RDW 18.0 H Plt Count 312 MPV 10.5 Immature Gran % (Auto) 0.5 H Neut % (Auto) 58.6 Lymph % (Auto) 27.2 Mcdonough % (Auto) 12.7 H Eos % (Auto) 0.5 Baso % (Auto) 0.5 Lymph # (Auto) 1.0 L Mcdonough # (Auto) 0.5 Eos # (Auto) 0.0 Baso # (Auto) 0.0 Abs Immat Gran (auto) 0.02 Absolute Neuts (auto) 2.2 Absolute Nucleated RBC 0.000 Nucleated RBC % (auto) 0.0 Sodium 140 Potassium 4.1 Chloride 106 Carbon Dioxide 24 Anion Gap 14 BUN 26 H Creatinine 1.04 Estim Creat Clear Calc 42.8 Estimated GFR 51 Random Glucose 96 Calcium 9.1 Total Bilirubin 0.9 AST 14 ALT 10 Alkaline Phosphatase 69 Total Protein 6.6 Albumin 4.3 25-OH Vitamin D Total 29.2 Progress Note: A/P (1) Breast cancer Status: Acute Assessment and plan: this is a pleasant 80-year-old lady here for a follow-up visit. 1. Breast cancer: 80 year-old lady with right Breast Carcinoma, stage I disease, ER positive MA positive HER-2/melina negative. She had a lumpectomy, followed by radiation. She was on Anti-estrogen therapy, which she completed in December of 2014. She currently remains in remission. Most recent mammogram was in May of 2019 and was benign. Bone mineral density was in May 2018 and revealed osteoporosis. Her energy level and blood counts have improved with the B12 and iron replacements. PLAN: She will continue to be followed along. Will have a repeat mammo this month, she is scheduled for the . I again offered her parenteral bisphosphonate therapy, for the osteoporosis. I have mentioned about Prolia, which would be convenient, every 6 months. 2. Anemia: Her shortness of breath is likely related to that. Her hemoglobin has dropped down to 7.4. She could have iron deficiency anemia. she had an upper endoscopy and colonoscopy May 2016. this revealed: 1. Large hiatal hernia. 2. Reflux esophagitis. 3. Rule out celiac disease. 4. Diverticulosis. 5. Internal hemorrhoids. Pathology revealed: A. DUODENAL MUCOSA WITH NO DIAGNOSTIC ABNORMALITY. B. ESOPHAGOGASTRIC JUNCTION-TYPE MUCOSA WITH AN ACUTE EROSIVE ESOPHAGITIS AND MINUTE FOCI OF SPECIALIZED NORMAN'S EPITHELIUM. NEGATIVE FOR DYSPLASIA. In addition she has B12 deficiency, she is on replacement therapy. Her I.F Antibody was negative, celiac antibody negative. PLAN: I will proceed with an anemia workup. Iiron studies are consistent with iron deficiency. she likely has occult GI bleeding. Will also arrange for 2 units of blood to be infused tomorrow. Will refer her for further GI evaluation. She will return in 3 months for a follow-up visit. thank you, cc: Dr. Camarena. Kriss De Leon. - Time Spent With Patient Total time spent is greater than 50% in coordination of care (as documented) at patient's floor/unit and/or counseling patient: 25 - 35 minutes
[2020-06-03 14:09] LABS: Iron 30 mcg/dL (30-160); Lactate Dehydrogenase 144 U/L (122-220); Percent Iron Saturation 6 % (15-50); Total Iron Binding Capacity 485 mcg/dL (228-428); Unsaturated Iron Binding 455 ug/dL
[2020-06-03 17:20] LABS: Ferritin 3 ng/mL (10-250)
[2020-06-04] VITALS (7 sets, daily range): BP systolic 137–165; BP diastolic 63–77; PULSE 81–96; RESP 16–20; TEMP 36.1–37.2; O2SAT 99; BMI 25.3
--- NOTE | 2020-06-04 15:01 | MHC.HEMONC ---
Dr. Camarena's office called to make appt for follow up for possible GI bleed and further evaluation. Dr. Camarnea is booked until July, spoke to medical front desk coordinator- labs and last note faxed per request. Office will call patient with appt. Pt aware. Pt received 2 units of RBCs and well tolerated- no signs of reaction noted.
[2020-06-04 21:10] LABS: Folate 9.3 ng/mL (> or = 4.0); Vitamin B12 485 pg/mL (200-900)
--- NOTE | 2020-08-24 14:41 | MHC.HEMONC ---
pt called. Needs CBC check post endoscopy per GI. Scheduled for next week.
[2020-08-31 10:53] LABS: MANUAL DIFF FLAG NO
[2020-08-31 10:57] LABS: Basophils Percent Auto 0.4 % (0-2); Eosinophils Percent Auto 0.2 % (0-4); Hematocrit 33.7 % (37-47); Hemoglobin 10.2 g/dl (12.0-16.0); Imm Gran Abs Auto 0.04 X10*3/uL (0.00-0.03); Imm Gran Pct Auto 0.9 % (0.0-0.4); Lymphocytes Absolute Auto 1.1 X10*3/uL (1.2-4.9); Lymphocytes Percent Auto 23.8 % (20-40); Mean Corpuscular HGB Conc 30.3 g/dl (31.0-35.0); Mean Corpuscular Volume 82.6 fL (80-98); Mean Platelet Volume 10.5 fL (9.4-12.3); Monocytes Absolute Auto 0.5 X10*3/uL (0.1-1.2); Monocytes Percent Auto 10.6 % (2-11); Neutrophils Absolute Auto 2.9 X10*3/uL (2.0-8.3); Neutrophils Percent Auto 64.1 % (45-73); Platelet Count 251 X10*3/uL (160-400); Red Blood Count 4.08 X10*6/uL (4.20-5.50); Red Cell Distribution Width 14.9 % (11.0-16.0); White Blood Count 4.5 X10*3/uL (4.8-10.8)
[2020-08-31 11:29] LABS: Alanine Aminotransferase 8 U/L (0-31); Albumin Level 4.4 g/dL (3.5-5.0); Alkaline Phosphatase 91 U/L (39-117); Anion Gap 17 (12-20); Aspartate Amino Transferase 14 U/L (5-31); Bilirubin Total 0.7 mg/dL (0.0-1.0); Blood Urea Nitrogen 22 mg/dL (9-16); Calcium 8.8 mg/dL (8.4-10.2); Carbon Dioxide 21 mmol/L (22-29); Chloride 107 mmol/L (96-108); Creatinine Clr Calc Pharmacy 40.4; Estimated Glomerular Filt Rate 48; Glucose Random 107 mg/dL (60-115); Potassium 3.8 mmol/l (3.3-5.1); Sodium 141 mmol/L (135-145); Total Protein 6.8 g/dL (6.5-8.0)
[2020-08-31 11:49] LABS: Vitamin D 25-OH Total 31.6 ng/mL (>30)
--- NOTE | 2020-08-31 12:04 | MHC.HEMONC ---
Pt scheduled for lab draw. Labs drawn
[2020-09-01 14:17] LABS: CA 27.29 15 U/mL (<38)
[2020-12-03 08:58] VITALS: BP 158/75; PULSE 100; RESP 12; TEMP 37.1; O2SAT 96; BMI 25.9
--- NOTE | 2020-12-03 09:05 | PM.HEMONCPN ---
Medical Summary - Medical Summary Date of Service: 12/03/20 Chief complaint: Follow-up for: 1. Breast cancer. 2. Anemia. Medical Summary: DIAGNOSES: 1. Stage I invasive ductal Carcinoma, right breast. 2. A 0.8 cm ER-positive, UT-positive, HER-2/melina negative by FISH. 3. Benign sentinel nodes. 4. Stage pT1bN0 (i-). 5. Anemia: Required transfusion, back in april. CURRENT THERAPY: Tamoxifen started October 2009 completed 5 years in December 2014. Interval History Interval history: 80 year-old lady, she is here for a followup visit. She was seen here back in April. At that time her hemoglobin was down to 7.4. She was given blood transfusion x2. She was referred for further GI evaluation. She underwent an upper endoscopy on June 23, by Dr. Camarena. This revealed: IMPRESSION: 1. Large hiatal hernia with associated proximal gastritis. 2. Duodenal polyp and/or lipoma, status post biopsy. 3. Rule out celiac disease. PLAN: The results of the biopsy will be checked. She was advised to use iron supplements daily. She will be started on omeprazole 20 mg each morning, but was advised to continue her H2 sabrina each evening. She will be seen within 2 or 3 months for a followup visit. She did have a negative colonoscopy in 2015 for evaluation of anemia and also had a negative colonoscopy in 2007. Therefore, we may hold off on the colonoscopy given the findings today and the clinical history. This has been discussed with her cousin. She was told she had hiatus hernia, and some ulceration. Pathology revealed: Duodenal mucosa within normal limits, polypoid small intestinal mucosa within normal limits. Diagnostic features of celiac disease not seen. She tells me she has been feeling well.. Since she started the omeprazole her GI symptoms have resolved. She denies chest pain. Recently she has noticed shortness of breath especially on exertion. She has seen Kriss De Leon. She ordered a chest x-ray. She denies any previous history of asthma or COPD. She has no major complaints today. Denies any changes in her medical history nor medications. She tells me that she had been on Fosamax, for several years. She recently stopped it. She has had her bone density, May,. It was consistent with osteoporosis. She denies any breast related complaints. No chest pain nor shortness of breath. She has not had any nausea vomiting heartburn indigestion or abdominal pain. She denies constipation. Denies seeing any gross blood in the stools. She enjoys a good appetite, her weight is up. Her energy level is good. The rest of the review of systems is unremarkable. She is an early riser. She wakes up around 5 AM. She watches news on TV and has her morning cup of coffee. Review of Systems - Constitutional Reports no additional constitutional complaints - Eyes Reports no additional eye complaints - ENT Reports no additional ear, nose, mouth, and throat complaints - Cardiovascular Reports no additional cardiovascular complaints - Respiratory Reports no additional respiratory complaints - Gastrointestinal Reports no additional gastrointestinal complaints - Genitourinary Reports no additional female genitourinary complaints - Musculoskeletal Reports no additional musculoskeletal complaints - Integumentary/Breasts Skin/Breast: Reports no additional skin complaints - Neurologic Reports no additional neurologic complaints, Reports as per HPI, Reports hearing normal - Psychiatric Reports no additional psychiatric complaints - Endocrine Reports no additional endocrine complaints - Hematologic/Lymphatic Reports no additional hematologic/lymphatic complaints - Allergic/Immunologic Reports no additional allergic/immunologic complaints REPLACED BY [facility] Medical History: Medical History (Last Reviewed 12/03/20 @ 09:10 by Morena Hernández) Anemia B12 deficiency Breast cancer GERD (gastroesophageal reflux disease) Hypertension Osteoporosis Wrist fracture, bilateral Functional capacity: uses cane/walker Patient : No Family History: Family History (Last Reviewed 12/03/20 @ 09:10 by Morena Hernández) Other Vaginal cancer Surgical History: Surgical History (Last Reviewed 12/03/20 @ 09:10 by Morena Hernández) H/O colectomy H/O hysterectomy with oophorectomy History of appendectomy History of cataract surgery History of lumpectomy of right breast Hx of colonoscopy Hx of esophagogastroduodenoscopy Hx of lumpectomy S/P excision of lipoma Social History: Social History (Last Reviewed 12/03/20 @ 09:10 by Morena Hernández) Alcohol History Details: Alcohol intake frequency: holiday/special occasion Tobacco History: Smoking Status: Former smoker Packs Per Day: 1 Years Smoked: 21 Advance Directives: Advance Directives: No Advance Directives Information Provided: Yes Nutrition Assessment: Patient : No Smoking status: Former smoker Oncology Screenings - ECOG Performance Status ECOG Performance Status: 1 Home Medications and Allergies Home Medications Medication Instructions Recorded Confirmed Type calcium 500 mg PO BID 06/03/20 06/03/20 History cholecalciferol (vitamin D3) 25 mcg PO DAILY 06/03/20 06/03/20 History cyanocobalamin (vitamin B-12) 1,000 mcg IM QMONTH 06/03/20 06/03/20 History [B-12 Compliance] famotidine 20 mg PO BID 06/03/20 06/03/20 History ferrous sulfate 325 mg PO DAILY 06/03/20 06/03/20 History hydrochlorothiazide 25 mg PO DAILY 06/03/20 06/03/20 History cxuiwwkwezja-kbgxbbkp-xlkjzy 1 tab PO DAILY 06/03/20 06/03/20 History [Centrum Silver] tizanidine 4 mg PO BEDTIME PRN 06/03/20 06/03/20 History omeprazole 1 cap PO QAM 12/03/20 12/03/20 History Allergies Allergy/AdvReac Type Severity Reaction Status Date / Time meperidine [From Demerol] Allergy Mild VOMITING Verified 06/03/20 08:26 Exam Vital signs: Vital Signs Temp 98.9 F 06/04/20 14:50 Pulse 88 06/04/20 14:50 Resp 18 06/04/20 14:50 BP 160/76 H 06/04/20 14:50 Pulse Ox 99 06/04/20 08:24 Weight 69.003 kg Body Mass Index 25.3 - Constitutional Present: no acute distress - Routine HEENT Exam Head: Present: normal inspection Eye: Present: normal appearance ENT: Present: mucous membranes moist - Routine Neck Exam Present: full ROM - Routine Respiratory Exam Present: CTAB - Routine Cardiovascular Exam Cardiovascular: Present: RRR, S1, S2 - Routine Abdominal Exam Present: soft, nontender - Routine Rectal Exam Patient deferred: digital exam - Routine Extremities Exam Present: nontender - Routine Back/Spine/Pelvis Exam Back/Spine: Absent: CVA tenderness - Routine Skin Exam Present: intact - Routine Neurological Exam Present: alert, oriented X3 - Detailed Neurological Exam: Coma Scale Eye Opening: Spontaneous (4) - Routine Psychiatric Exam Present: normal affect Data - Labs CBC & Chem 7: 12/03/20 09:07 12/03/20 09:07 Labs: 06/03/20 08:42 Complete Blood Count Auto Diff Routine Comprehensive Met. Panel Routine Ferritin Routine IRON PROFILE Routine Lactate Dehydrogenase Routine Vitamin B12 and Folate Routine Vitamin D 25-OH Total Routine 06/03/20 09:14 XR chest 2V Routine 06/03/20 13:52 Add Laboratory Test Routine 06/04/20 08:48 RBC [Red Blood Cells] Routine 06/04/20 08:48 Type and Screen Routine 08/31/20 10:42 CA 27.29 Routine Complete Blood Count Auto Diff Routine Comprehensive Met. Panel Routine Vitamin D 25-OH Total Routine Laboratory Last Values WBC 4.5 X10*3/uL (4.8-10.8) L 08/31/20 10:42 RBC 4.08 X10*6/uL (4.20-5.50) L 08/31/20 10:42 Hgb 10.2 g/dl (12.0-16.0) L D 08/31/20 10:42 Hct 33.7 % (37-47) L D 08/31/20 10:42 MCV 82.6 fL (80-98) 08/31/20 10:42 MCH 25.0 pg (27.0-33.0) L 08/31/20 10:42 MCHC 30.3 g/dl (31.0-35.0) L 08/31/20 10:42 RDW 14.9 % (11.0-16.0) 08/31/20 10:42 Plt Count 251 X10*3/uL (160-400) 08/31/20 10:42 MPV 10.5 fL (9.4-12.3) 08/31/20 10:42 Immature Gran % (Auto) 0.9 % (0.0-0.4) H 08/31/20 10:42 Neut % (Auto) 64.1 % (45-73) 08/31/20 10:42 Lymph % (Auto) 23.8 % (20-40) 08/31/20 10:42 [place] % (Auto) 10.6 % (2-11) 08/31/20 10:42 Eos % (Auto) 0.2 % (0-4) 08/31/20 10:42 Baso % (Auto) 0.4 % (0-2) 08/31/20 10:42 Lymph # (Auto) 1.1 X10*3/uL (1.2-4.9) L 08/31/20 10:42 [place] # (Auto) 0.5 X10*3/uL (0.1-1.2) 08/31/20 10:42 Eos # (Auto) 0.0 X10*3/uL (0.0-0.4) 08/31/20 10:42 Baso # (Auto) 0.0 X10*3/uL (0.0-0.2) 08/31/20 10:42 Abs Immat Gran (auto) 0.04 X10*3/uL (0.00-0.03) H 08/31/20 10:42 Absolute Neuts (auto) 2.9 X10*3/uL (2.0-8.3) 08/31/20 10:42 Absolute Nucleated RBC 0.000 X10*3/uL (0.0-0.012) 08/31/20 10:42 Nucleated RBC % (auto) 0.0 /100WBC (0.0-0.2) 08/31/20 10:42 Sodium 141 mmol/L (135-145) 08/31/20 10:42 Potassium 3.8 mmol/l (3.3-5.1) 08/31/20 10:42 Chloride 107 mmol/L (96-108) 08/31/20 10:42 Carbon Dioxide 21 mmol/L (22-29) L 08/31/20 10:42 Anion Gap 17 (12-20) 08/31/20 10:42 BUN 22 mg/dL (9-16) H 08/31/20 10:42 Creatinine 1.10 mg/dL (0.5-1.4) 08/31/20 10:42 Estim Creat Clear Calc 40.4 08/31/20 10:42 Estimated GFR 48 08/31/20 10:42 Random Glucose 107 mg/dL (60-115) 08/31/20 10:42 Calcium 8.8 mg/dL (8.4-10.2) 08/31/20 10:42 Iron 30 mcg/dL (30-160) 06/03/20 08:42 TIBC 485 mcg/dL (228-428) H 06/03/20 08:42 % Saturation 6 % (15-50) L 06/03/20 08:42 Unsat Iron Binding 455 ug/dL 06/03/20 08:42 Ferritin 3 ng/mL (10-250) L 06/03/20 08:42 Total Bilirubin 0.7 mg/dL (0.0-1.0) 08/31/20 10:42 AST 14 U/L (5-31) 08/31/20 10:42 ALT 8 U/L (0-31) 08/31/20 10:42 Alkaline Phosphatase 91 U/L (39-117) D 08/31/20 10:42 Lactate Dehydrogenase 144 U/L (122-220) 06/03/20 08:42 Total Protein 6.8 g/dL (6.5-8.0) 08/31/20 10:42 Albumin 4.4 g/dL (3.5-5.0) 08/31/20 10:42 CA 27-29 15 U/mL (<38) 08/31/20 10:42 Vitamin B12 485 pg/mL (200-900) 06/03/20 08:42 25-OH Vitamin D Total 31.6 ng/mL (>30) 08/31/20 10:42 Folate 9.3 ng/mL (> or = 4.0) 06/03/20 08:42 Blood Type O Positive 06/04/20 08:48 Antibody Screen NEGATIVE 06/04/20 08:48 Crossmatch See Detail 06/04/20 08:48 Progress Note: A/P (1) Breast cancer Status: Acute Assessment and plan: this is a pleasant 80-year-old lady here for a follow-up visit. 1. Breast cancer: 80 year-old lady with right Breast Carcinoma, stage I disease, ER positive UT positive HER-2/melina negative. She had a lumpectomy, followed by radiation. She was on Anti-estrogen therapy, which she completed in December of 2014. She currently remains in remission. Most recent mammogram was in May of 2020 and was benign. Bone mineral density was in May 2018 and revealed osteoporosis. Her energy level and blood counts have improved with the B12 and iron replacements. PLAN: She will continue to be followed along. Will have a repeat mammo on June 16. I again offered her parenteral bisphosphonate therapy, for the osteoporosis. I have mentioned about Prolia, which would be convenient, every 6 months. She has elected not to take it. She will return in 6 months for a follow-up visit. CC: Dr. Camarena. Kriss De Leon. (2) Anemia Status: Acute Assessment and plan: 2. Anemia: Iron deficiency: At her last visit, her hemoglobin had dropped down to 7.4. Concern was iron deficiency anemia. She was transfused. she had an upper endoscopy on 23 June 2020. This revealed: 1. Large hiatal hernia. 2. Reflux esophagitis. 3. Rule out celiac disease. Pathology revealed: A. DUODENAL MUCOSA WITH NO DIAGNOSTIC ABNORMALITY. Previous endoscopy from May to had revealed. ESOPHAGOGASTRIC JUNCTION-TYPE MUCOSA WITH AN ACUTE EROSIVE ESOPHAGITIS AND MINUTE FOCI OF SPECIALIZED NORMAN'S EPITHELIUM. NEGATIVE FOR DYSPLASIA. In addition she has B12 deficiency, she is on replacement therapy. Her I.F Antibody was negative, celiac antibody negative. She is no longer tired. Her hemoglobin is up at around 11 gms. PLAN: She will continue on iron replacement therapy for another 6 months. She will return here in 6 months for a follow-up visit. She will call me in case she gets fatigued prior to that time. Thank you, CC: Kriss De Leon. Dr. Camarena. - Time Spent With Patient Total time spent is greater than 50% in coordination of care (as documented) at patient's floor/unit and/or counseling patient: 25 - 35 minutes
[2020-12-03 09:14] LABS: MANUAL DIFF FLAG NO
[2020-12-03 09:18] LABS: Basophils Percent Auto 0.7 % (0-2); Eosinophils Percent Auto 0.7 % (0-4); Hematocrit 35.8 % (37-47); Hemoglobin 11.1 g/dl (12.0-16.0); Imm Gran Abs Auto 0.05 X10*3/uL (0.00-0.03); Imm Gran Pct Auto 0.9 % (0.0-0.4); Lymphocytes Absolute Auto 1.4 X10*3/uL (1.2-4.9); Lymphocytes Percent Auto 24.7 % (20-40); Mean Corpuscular Hemoglobin 26.1 pg (27.0-33.0); Mean Corpuscular Volume 84.2 fL (80-98); Mean Platelet Volume 11.1 fL (9.4-12.3); Monocytes Absolute Auto 0.4 X10*3/uL (0.1-1.2); Monocytes Percent Auto 7.9 % (2-11); Neutrophils Absolute Auto 3.6 X10*3/uL (2.0-8.3); Neutrophils Percent Auto 65.1 % (45-73); Platelet Count 225 X10*3/uL (160-400); Red Blood Count 4.25 X10*6/uL (4.20-5.50); Red Cell Distribution Width 14.4 % (11.0-16.0); White Blood Count 5.6 X10*3/uL (4.8-10.8)
--- NOTE | 2020-12-03 09:35 | MHC.HEMONCMA ---
Pt present to f/u on breast cancer. History reviewed, labs drawn and pt to return in 6 months.
[2020-12-03 09:55] LABS: Alanine Aminotransferase 10 U/L (0-31); Albumin Level 4.3 g/dL (3.5-5.0); Alkaline Phosphatase 99 U/L (39-117); Anion Gap 13 (12-20); Aspartate Amino Transferase 14 U/L (5-31); Bilirubin Total 0.7 mg/dL (0.0-1.0); Blood Urea Nitrogen 24 mg/dL (9-16); Carbon Dioxide 24 mmol/L (22-29); Chloride 108 mmol/L (96-108); Creatinine Clr Calc Pharmacy 41.7; Estimated Glomerular Filt Rate 49; Glucose Random 101 mg/dL (60-115); Potassium 4.3 mmol/L (3.3-5.1); Sodium 141 mmol/L (135-145); Total Protein 6.8 g/dL (6.5-8.0)
[2020-12-03 10:15] LABS: Vitamin D 25-OH Total 35.8 ng/mL (>30)
[2020-12-04 11:27] LABS: CA 27.29 19 U/mL (<38)
--- NOTE | 2021-06-30 08:33 | PM.HEMONCPN ---
Medical Summary - Medical Summary Date of Service: 06/30/21 Chief complaint: Follow up for:Breast Cancer. Medical Summary: DIAGNOSES: 1. Stage I invasive ductal Carcinoma, right breast. 2. A 0.8 cm ER-positive, MN-positive, HER-2/melina negative by FISH. 3. Benign sentinel nodes. 4. Stage pT1bN0 (i-). 5. Anemia: Required transfusion, back in april. CURRENT THERAPY: Tamoxifen started October 2009 completed 5 years in December 2014. Switched to Arimidex, due to LFT abnormalities. Interval History Interval history: 80 year-old lady, she is here for a followup visit. She fell on April 21 and broke her right humerus. She did not need surgery. She was in a sling for a while. She was at rehab for 6 and have weeks. Currently she is getting physical therapy and occupational therapy at home twice a week. Due to that she was not able to get her mammogram done last month. She will go once she is able to elevate her arm. Other than that, she tells me she has been feeling well. She has good energy level. She denies chest pain. She denies any previous history of asthma or COPD. Denies any changes in her medical history nor medications. She tells me that she had been on Fosamax, for several years. She has stopped it. She has had her bone density, May,. It was consistent with osteoporosis. She denies any breast related complaints. No chest pain nor shortness of breath. She has not had any nausea vomiting heartburn indigestion or abdominal pain. She denies constipation. Denies seeing any gross blood in the stools. She enjoys a good appetite, her weight is up. Since she started the omeprazole her GI symptoms have resolved. She is in good spirits. The rest of the review of systems is unremarkable. She is an early riser. She wakes up around 5 AM. She watches news on TV and has her morning cup of coffee Previous history: She was seen here back in April. At that time her hemoglobin was down to 7.4. She was given blood transfusion x2. She was referred for further GI evaluation. She underwent an upper endoscopy on June 23, by Dr. Camarena. This revealed: IMPRESSION: 1. Large hiatal hernia with associated proximal gastritis. 2. Duodenal polyp and/or lipoma, status post biopsy. 3. Rule out celiac disease. PLAN: The results of the biopsy will be checked. She was advised to use iron supplements daily. She will be started on omeprazole 20 mg each morning, but was advised to continue her H2 sabrina each evening. She will be seen within 2 or 3 months for a followup visit. She did have a negative colonoscopy in 2016 for evaluation of anemia and also had a negative colonoscopy in 2007. Therefore, we may hold off on the colonoscopy given the findings today and the clinical history. This has been discussed with her cousin. She was told she had hiatus hernia, and some ulceration. Pathology revealed: Duodenal mucosa within normal limits, polypoid small intestinal mucosa within normal limits. Diagnostic features of celiac disease not seen. . Review of Systems - Constitutional Reports system reviewed and no additional complaints, except as documented - Eyes Reports system reviewed and no additional complaints, except as documented - ENT Reports system reviewed and no additional complaints, except as documented - Cardiovascular Reports system reviewed and no additional complaints, except as documented - Respiratory Reports no additional respiratory complaints - Gastrointestinal Reports system reviewed and no additional complaints, except as documented - Genitourinary Reports no additional female genitourinary complaints - Musculoskeletal Reports system reviewed and no additional complaints, except as documented - Integumentary/Breasts Skin/Breast: Reports no additional skin complaints - Neurologic Reports system reviewed and no additional complaints, except as documented, Reports as per HPI, Reports hearing normal - Psychiatric Reports system reviewed and no additional complaints, except as documented - Endocrine Reports no additional endocrine complaints - Hematologic/Lymphatic Reports system reviewed and no additional complaints, except as documented - Allergic/Immunologic Reports system reviewed and no additional complaints, except as documented PMF Medical History: Medical History (Last Reviewed 06/30/21 @ 08:53 by Martinez Rodriguez) Anemia B12 deficiency Breast cancer GERD (gastroesophageal reflux disease) Hypertension Osteoporosis Wrist fracture, bilateral Functional capacity: uses cane/walker Patient : No Family History: Family History (Last Reviewed 06/30/21 @ 08:53 by Martinez Rodriguez) Other Vaginal cancer Surgical History: Surgical History (Last Reviewed 06/30/21 @ 08:53 by Martinez Rodriguez) H/O colectomy H/O hysterectomy with oophorectomy History of appendectomy History of cataract surgery History of lumpectomy of right breast Hx of colonoscopy Hx of esophagogastroduodenoscopy Hx of lumpectomy S/P excision of lipoma Social History: Social History (Last Reviewed 06/30/21 @ 08:53 by Martinez Rodriguez) Living Situation History: Are you a primary residential care facility manager to a significant other at home: No Do you presently have visiting nurse or other home services: No Alcohol History: Alcohol intake: never Alcohol History Details: Alcohol intake frequency: holiday/special occasion Tobacco History: Cigarette Packs Per Day: 1 Years Smoked: 25 Advance Directives: Advance Directives: No Advance Directives Information Provided: Yes Nutrition Assessment: Patient : No Occupation Assessmet: Current occupational status: disabled Current occupation: rt handed Oncology Screenings - ECOG Performance Status ECOG Performance Status: 1 Home Medications and Allergies Home Medications Medication Instructions Recorded Confirmed Type calcium 500 mg tablet 500 mg PO BID 06/03/20 06/30/21 History cholecalciferol (vitamin D3) 25 25 mcg PO DAILY 06/03/20 06/30/21 History mcg (1,000 unit) tablet cyanocobalamin (vitamin B-12) 1,000 mcg IM QMONTH 06/03/20 06/30/21 History 1,000 mcg/mL injection kit (B-12 Compliance) famotidine 20 mg tablet 20 mg PO BID 06/03/20 06/30/21 History ferrous sulfate 325 mg (65 mg 325 mg PO DAILY 06/03/20 06/30/21 History iron) tablet hydrochlorothiazide 25 mg tablet 25 mg PO DAILY 06/03/20 06/30/21 History butfwtrrwzbi-ikierccl-itbonw tablet 1 tab PO DAILY 06/03/20 06/30/21 History tizanidine 4 mg tablet 4 mg PO BEDTIME PRN 06/03/20 06/30/21 History omeprazole 20 mg capsule,delayed 1 cap PO QAM 12/03/20 06/30/21 History release Allergies Allergy/AdvReac Type Severity Reaction Status Date / Time meperidine [From Demerol] Allergy Mild VOMITING Verified 04/29/21 10:40 Exam Vital signs: Vital Signs Temp 98.7 F 12/03/20 08:58 Pulse 100 12/03/20 08:58 Resp 12 12/03/20 08:58 BP 158/75 H 12/03/20 08:58 Pulse Ox 96 12/03/20 08:58 Weight 70.8 kg Body Mass Index 25.9 - Constitutional Present: no acute distress - Routine HEENT Exam Head: Present: normal inspection Eye: Present: normal appearance ENT: Present: mucous membranes moist - Routine Neck Exam Present: full ROM - Routine Respiratory Exam Present: CTAB - Routine Cardiovascular Exam Cardiovascular: Present: RRR, S1, S2 - Routine Abdominal Exam Present: soft, nontender - Routine Rectal Exam Patient deferred: digital exam - Routine Extremities Exam Present: nontender - Routine Back/Spine/Pelvis Exam Back/Spine: Absent: CVA tenderness - Routine Skin Exam Present: intact - Routine Neurological Exam Present: alert, oriented X3 - Detailed Neurological Exam: Coma Scale Eye Opening: Spontaneous (4) - Routine Psychiatric Exam Present: normal affect Data - Labs CBC & Chem 7: 06/30/21 08:41 06/30/21 08:41 Labs: 06/03/20 08:42 Complete Blood Count Auto Diff Routine Comprehensive Met. Panel Routine Ferritin Routine IRON PROFILE Routine Lactate Dehydrogenase Routine Vitamin B12 and Folate Routine Vitamin D 25-OH Total Routine 06/03/20 09:14 XR chest 2V Routine 06/03/20 13:52 Add Laboratory Test Routine 06/04/20 08:48 RBC [Red Blood Cells] Routine 06/04/20 08:48 Type and Screen Routine 08/31/20 10:42 CA 27.29 Routine Complete Blood Count Auto Diff Routine Comprehensive Met. Panel Routine Vitamin D 25-OH Total Routine Laboratory Last Values WBC 4.5 X10*3/uL (4.8-10.8) L 08/31/20 10:42 RBC 4.08 X10*6/uL (4.20-5.50) L 08/31/20 10:42 Hgb 10.2 g/dl (12.0-16.0) L D 08/31/20 10:42 Hct 33.7 % (37-47) L D 08/31/20 10:42 MCV 82.6 fL (80-98) 08/31/20 10:42 MCH 25.0 pg (27.0-33.0) L 08/31/20 10:42 MCHC 30.3 g/dl (31.0-35.0) L 08/31/20 10:42 RDW 14.9 % (11.0-16.0) 08/31/20 10:42 Plt Count 251 X10*3/uL (160-400) 08/31/20 10:42 MPV 10.5 fL (9.4-12.3) 08/31/20 10:42 Immature Gran % (Auto) 0.9 % (0.0-0.4) H 08/31/20 10:42 Neut % (Auto) 64.1 % (45-73) 08/31/20 10:42 Lymph % (Auto) 23.8 % (20-40) 08/31/20 10:42 [place] % (Auto) 10.6 % (2-11) 08/31/20 10:42 Eos % (Auto) 0.2 % (0-4) 08/31/20 10:42 Baso % (Auto) 0.4 % (0-2) 08/31/20 10:42 Lymph # (Auto) 1.1 X10*3/uL (1.2-4.9) L 08/31/20 10:42 [place] # (Auto) 0.5 X10*3/uL (0.1-1.2) 08/31/20 10:42 Eos # (Auto) 0.0 X10*3/uL (0.0-0.4) 08/31/20 10:42 Baso # (Auto) 0.0 X10*3/uL (0.0-0.2) 08/31/20 10:42 Abs Immat Gran (auto) 0.04 X10*3/uL (0.00-0.03) H 08/31/20 10:42 Absolute Neuts (auto) 2.9 X10*3/uL (2.0-8.3) 08/31/20 10:42 Absolute Nucleated RBC 0.000 X10*3/uL (0.0-0.012) 08/31/20 10:42 Nucleated RBC % (auto) 0.0 /100WBC (0.0-0.2) 08/31/20 10:42 Sodium 141 mmol/L (135-145) 08/31/20 10:42 Potassium 3.8 mmol/l (3.3-5.1) 08/31/20 10:42 Chloride 107 mmol/L (96-108) 08/31/20 10:42 Carbon Dioxide 21 mmol/L (22-29) L 08/31/20 10:42 Anion Gap 17 (12-20) 08/31/20 10:42 BUN 22 mg/dL (9-16) H 08/31/20 10:42 Creatinine 1.10 mg/dL (0.5-1.4) 08/31/20 10:42 Estim Creat Clear Calc 40.4 08/31/20 10:42 Estimated GFR 48 08/31/20 10:42 Random Glucose 107 mg/dL (60-115) 08/31/20 10:42 Calcium 8.8 mg/dL (8.4-10.2) 08/31/20 10:42 Iron 30 mcg/dL (30-160) 06/03/20 08:42 TIBC 485 mcg/dL (228-428) H 06/03/20 08:42 % Saturation 6 % (15-50) L 06/03/20 08:42 Unsat Iron Binding 455 ug/dL 06/03/20 08:42 Ferritin 3 ng/mL (10-250) L 06/03/20 08:42 Total Bilirubin 0.7 mg/dL (0.0-1.0) 08/31/20 10:42 AST 14 U/L (5-31) 08/31/20 10:42 ALT 8 U/L (0-31) 08/31/20 10:42 Alkaline Phosphatase 91 U/L (39-117) D 08/31/20 10:42 Lactate Dehydrogenase 144 U/L (122-220) 06/03/20 08:42 Total Protein 6.8 g/dL (6.5-8.0) 08/31/20 10:42 Albumin 4.4 g/dL (3.5-5.0) 08/31/20 10:42 CA 27-29 15 U/mL (<38) 08/31/20 10:42 Vitamin B12 485 pg/mL (200-900) 06/03/20 08:42 25-OH Vitamin D Total 31.6 ng/mL (>30) 08/31/20 10:42 Folate 9.3 ng/mL (> or = 4.0) 06/03/20 08:42 Blood Type O Positive 06/04/20 08:48 Antibody Screen NEGATIVE 06/04/20 08:48 Crossmatch See Detail 06/04/20 08:48 Assessment and Plan Patient Active problem list reviewed?: Yes (1) Breast cancer Status: Acute Assessment and plan: this is a pleasant 81 year-old lady here for a follow-up visit. 1. Breast cancer: 81 year-old lady with right Breast Carcinoma, stage I disease, ER positive MN positive HER-2/melina negative. She had a lumpectomy, followed by radiation. She was on Anti-estrogen therapy, which she completed in December of 2014. She currently remains in remission. Her mammogram in May of 2020 was benign. She has not been able to get a mammogram this year because of the humeral fracture. Currently getting PT/OT at home. She will go as soon as she can elevate her arm. Bone mineral density was in May 2018 and revealed osteoporosis. Her energy level and blood counts have improved with the B12 and iron replacements. PLAN: She will continue to be followed along. Will have a repeat mammo in a few weeks time. I again offered her parenteral bisphosphonate therapy, for the osteoporosis. I have mentioned about Prolia, which would be convenient, every 6 months. She has declined,again. She will discuss this further with her primary about other choices for osteoporosis. She will return in 12 months for a follow-up visit. CC: Dr. Camarena. Kriss De Leon. (2) Anemia Status: Acute Assessment and plan: 2. Anemia: Iron deficiency: At her previous visit, last November, her hemoglobin had dropped down to 7.4. Concern was iron deficiency anemia. She was transfused. she had an upper endoscopy on 23 June 2020. This revealed: 1. Large hiatal hernia. 2. Reflux esophagitis. 3. Rule out celiac disease. Pathology revealed: A. DUODENAL MUCOSA WITH NO DIAGNOSTIC ABNORMALITY. Previous endoscopy from May to had revealed. ESOPHAGOGASTRIC JUNCTION-TYPE MUCOSA WITH AN ACUTE EROSIVE ESOPHAGITIS AND MINUTE FOCI OF SPECIALIZED NORMAN'S EPITHELIUM. NEGATIVE FOR DYSPLASIA. In addition she has B12 deficiency, she is on replacement therapy. Her I.F Antibody was negative, celiac antibody negative. She is no longer tired. Her hemoglobin is up at 11.1 gms. PLAN: She completed Iron replacement therapy. She will return here in 1 year for a follow-up visit. She will call me in case she gets fatigued prior to that time. Thank you, CC: Kriss De Leon. Dr. Camarena. - Time Spent With Patient Time Spent with Patient (in minutes): 30
[2021-06-30 08:45] LABS: MANUAL DIFF FLAG NO
[2021-06-30 08:49] LABS: Basophils Absolute Auto 0.1 X10*3/uL (0.0-0.2); Basophils Percent Auto 0.7 % (0-2); Eosinophils Percent Auto 0.3 % (0-4); Hematocrit 34.8 % (37.0-47.0); Hemoglobin 11.1 g/dl (12.0-16.0); Imm Gran Abs Auto 0.06 X10*3/uL (0.00-0.03); Imm Gran Pct Auto 0.8 % (0.0-0.4); Lymphocytes Absolute Auto 1.3 X10*3/uL (1.2-4.9); Mean Corpuscular HGB Conc 31.9 g/dl (31.0-35.0); Mean Corpuscular Hemoglobin 27.5 pg (27.0-33.0); Mean Corpuscular Volume 86.4 fL (80.0-98.0); Mean Platelet Volume 10.6 fL (9.4-12.3); Monocytes Absolute Auto 0.7 X10*3/uL (0.1-1.2); Neutrophils Absolute Auto 5.31 x10*3/uL (2.0-8.3); Neutrophils Percent Auto 72.2 % (45-73); Platelet Count 298 X10*3/uL (160-400); Red Blood Count 4.03 X10*6/uL (4.20-5.50); Red Cell Distribution Width 14.6 % (11.0-16.0); White Blood Count 7.4 X10*3/uL (4.8-10.8)
[2021-06-30 08:52] VITALS: BP 130/68; PULSE 87; RESP 14; TEMP 36.2; O2SAT 96; BMI 23.9
[2021-06-30 09:03] LABS: Alanine Aminotransferase 6 U/L (0-31); Albumin Level 4.1 g/dL (3.5-5.0); Alkaline Phosphatase 73 U/L (39-117); Anion Gap 12 (12-20); Aspartate Amino Transferase 12 U/L (5-31); Bilirubin Total 0.6 mg/dL (0.0-1.0); Blood Urea Nitrogen 19 mg/dL (9-16); Calcium 9.3 mg/dL (8.4-10.2); Carbon Dioxide 27 mmol/L (22-29); Chloride 106 mmol/L (96-108); Creatinine Clr Calc Pharmacy 38.4; Estimated Glomerular Filt Rate 50; Glucose Random 87 mg/dL (60-115); Potassium 3.4 mmol/L (3.3-5.1); Sodium 142 mmol/L (135-145); Total Protein 6.5 g/dL (6.5-8.0)
[2021-06-30 09:22] LABS: Vitamin D 25-OH Total 45.3 ng/mL (>30)
--- NOTE | 2021-06-30 14:00 | MHC.HEMONCMA ---
Pt came in for onc follow up and states she is doing well. clinical summary was updated and labs were drawn. pt will be in 06/30/2021 for f/u visit.
[2021-07-01 10:52] LABS: CA 27.29 14 U/mL (<38)
--- NOTE | 2022-05-23 09:01 | HO.HEMONCSCH ---
PATIENT LEFT A VOICEMAIL CANCELLING TODAYS APPT BECAUSE SHE STATES SHE HAS A COLD AND A MASSIVE HEADACHE . I CALLED PATIENT BACK AND RESCHEDULED W/ HER .
--- NOTE | 2022-06-01 08:48 | P.PNHO-ONC_ITS ---
Medical Summary - Medical Summary Date of Service: 06/01/22 Chief complaint: Follow up for: 1. Colon Cancer. 2. Breast Cancer. Medical Summary: DIAGNOSES: 1. Stage I invasive ductal Carcinoma, right breast. 2. A 0.8 cm ER-positive, MS-positive, HER-2/melina negative by FISH. 3. Benign sentinel nodes. 4. Stage pT1bN0 (i-). 5. Anemia: Required transfusion, back in april. 6. Recent diagnosis of stage III colon cancer. CURRENT THERAPY: Tamoxifen started October 2009 completed 5 years in December 2014. Switched to Arimidex, due to LFT abnormalities. Interval History Interval history: 81 year-old lady, she is here for a followup visit. Patient was in house between 03/19 and 04/10, the discharge summary: Hospital Course: The patient is an 81F who was admitted last March 19, 2022 from a SNF because of vomiting. She had undergone emergency right colon resection, end-ileostomy, mucus fistula last March 07, 2022 because of cecal perforation from an obstructing right colon tumor which turned out to be an adenocarcinoma. She was discharged on March 16 but was readmitted for vomiting. Initial impression was partial SBO vs. postop ileus. In view of her persistent vomitting, she had an NGT inserted on hospital day one. She was also in urinary retention with note of more than 1 liter of urine drained with insertion of the catheter. 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 She was started on TPN after hospital day 4 after a PICC line was placed . Her NGT was discontinued after a week in the hospital after she started to have ielostomy output. She was kept on clear liquids for a few days and this was slowly advanced. She was transfused 1 unit for a Hg of 7.4 with appropriate increase. She was being followed by the Hospitalist for her medical issues. She had a physical therapist see her for deconditioning and frailty and it was recommended that she should be in Rehab on discharge. Her TPN was discontinued earlier this week after her oral intake had improved. She had otherwise remained stable during her stay. She had a prolonged stay due to her fraily and deconditioning, as she did not feel ready to be moved to Rehab. Her Zarco catheter is to be kept in place, as Dr. Williamson had stated that he will see the patient in the office to see her if this can be removed. She subsequently was discharged to rehab. However after couple days she went back to the hospital. She was here for 3 weeks. She was then transferred to [facility] for rehab where she stayed for a month. She just came home 3 weeks ago. She is feeling very fatigued. She is rather sad and frustrated on account of the colostomy. It keeps leaking. She is afraid to eat lest it would leak again. She has not had any nausea vomiting heartburn indigestion or abdominal pain. She denies constipation. Denies seeing any gross blood in the stools. She denies any breast related complaints. She denies chest pain. She denies any previous history of asthma or COPD. She does not have a good appetite, She has lost weight. Her spirits are down. The rest of the review of systems is unremarkable. Previous history: She fell on April 21 and broke her right humerus. She did not need surgery. She was in a sling for a while. She was at rehab for 6 and a half weeks. She had physical therapy and occupational therapy at home twice a week. Due to that she was not able to get her mammogram done last month. She will go once she is able to elevate her arm. She was seen here back in April. At that time her hemoglobin was down to 7.4. She was given blood transfusion x2. She was referred for further GI evaluation. She underwent an upper endoscopy on June 23, by Dr. Camarena. This revealed: IMPRESSION: 1. Large hiatal hernia with associated proximal gastritis. 2. Duodenal polyp and/or lipoma, status post biopsy. 3. Rule out celiac disease. PLAN: The results of the biopsy will be checked. She was advised to use iron supplements daily. She will be started on omeprazole 20 mg each morning, but was advised to continue her H2 sbarina each evening. She will be seen within 2 or 3 months for a followup visit. She did have a negative colonoscopy in 2015 for evaluation of anemia and also had a negative colonoscopy in 2007. Therefore, we may hold off on the colonoscopy given the findings today and the clinical history. This has been discussed with her cousin. She was told she had hiatus hernia, and some ulceration. Pathology revealed: Duodenal mucosa within normal limits, polypoid small intestinal mucosa within normal limits. Diagnostic features of celiac disease not seen. . Review of Systems - Constitutional Reports system reviewed and no additional complaints, except as documented, Reports lack of energy, Reports malaise, Reports poor appetite, Reports weakness, Reports weight loss, Denies fever(s) - Eyes Reports system reviewed and no additional complaints, except as documented - ENT Reports system reviewed and no additional complaints, except as documented - Cardiovascular Reports system reviewed and no additional complaints, except as documented - Respiratory Reports no additional respiratory complaints - Gastrointestinal Reports system reviewed and no additional complaints, except as documented, Reports loose stools - Genitourinary Reports no additional female genitourinary complaints - Musculoskeletal Reports system reviewed and no additional complaints, except as documented - Integumentary/Breasts Skin/Breast: Reports no additional skin complaints - Neurologic Reports system reviewed and no additional complaints, except as documented, Reports as per HPI, Reports hearing normal - Psychiatric Reports system reviewed and no additional complaints, except as documented - Endocrine Reports no additional endocrine complaints - Hematologic/Lymphatic Reports system reviewed and no additional complaints, except as documented - Allergic/Immunologic Reports system reviewed and no additional complaints, except as documented PMFSH Medical History: Medical History (Last Reviewed 06/01/22 @ 09:03 by Shikha Rendon CMA) Anemia B12 deficiency Bacteremia due to Gram-negative bacteria Breast cancer Chronic restrictive lung disease Colon carcinoma COPD (chronic obstructive pulmonary disease) Dyspnea Emphysema lung GERD (gastroesophageal reflux disease) Hypertension Osteoporosis Postoperative ileus Pulmonary nodule Sepsis Tachycardia Wrist fracture, bilateral Functional capacity: uses cane/walker Patient : No Family History: Family History (Last Updated 06/01/22 @ 09:05 by Shikha Rendon CMA) Mother Vaginal cancer Maternal Aunt Breast cancer Surgical History: Surgical History (Last Reviewed 06/01/22 @ 09:04 by Shikha Rendon CMA) H/O colectomy H/O hysterectomy with oophorectomy History of appendectomy History of cataract surgery History of laparotomy History of lumpectomy of right breast Hx of colonoscopy Hx of esophagogastroduodenoscopy Hx of lumpectomy S/P excision of lipoma Status post exploratory laparotomy Social History: Social History (Last Updated 06/01/22 @ 09:07 by Shikha Rendon CMA) Living Situation History: Household Members: None Housing: House Are you a primary healthcare economics manager to a significant other at home: No Do you presently have visiting nurse or other home services: Yes Do you presently have visiting nurse or other home services comment: once a week for surgery Alcohol History Details: 1. How often do you have a drink containing alcohol?: a. Never Tobacco History: Patient Tobacco Use Status: Former Tobacco user Tobacco use type: Cigarette Years Smoked: 25 years Second Hand Smoke Exposure: No Substance Use History: Use of substances other than those prescribed or required for medical reasons : No Domestic Abuse History: Have you been hit, kicked, punched, or otherwise hurt by someone within the past year? If so, by whom?: No Advance Directives: Advance Directives: No Advance Directives Information Provided: Yes Advance Directives Date on File: 03/19/22 Homicidal Assessment: Do you have thoughts of harming others: None Do you have a plan to hurt others: No Plan Do you have the means to hurt others: No Nutrition Assessment: Recently lost weight without trying: Yes How much weight loss: 2-13 pounds Eating poorly because of decreased appetite: Yes Nutrition screen score: 4 Patient : No Occupation Assessmet: service: No Current occupational status: retired Current occupational status: disabled Current occupation: rt handed Oncology Screenings - ECOG Performance Status ECOG Performance Status: 2 Home Medications and Allergies Home Medications Medication Instructions Recorded Confirmed Type cholecalciferol (vitamin D3) 25 25 mcg PO DAILY 06/03/20 06/01/22 History mcg (1,000 unit) tablet ferrous sulfate 325 mg (65 mg 325 mg PO DAILY 06/03/20 06/01/22 History iron) tablet fgzipojlxhkl-[id number]-qoqkxa tablet 1 tab PO DAILY 06/03/20 06/01/22 History tizanidine 4 mg tablet 4 mg PO BEDTIME PRN Muscle Pain 06/03/20 06/01/22 History calcium carbonate 500 mg calcium 500 mg PO DAILY 03/07/22 06/01/22 History (1,250 mg) tablet cyanocobalamin (vitamin B-12) 1,000 mcg IM QMONTH 03/19/22 06/01/22 History 1,000 mcg/mL injection solution enoxaparin 30 mg/0.3 mL 30 mg subcut Q24H 03/19/22 06/01/22 History subcutaneous syringe (Lovenox) Allergies Allergy/AdvReac Type Severity Reaction Status Date / Time meperidine [From Demerol] Allergy Mild VOMITING Verified 06/01/22 09:07 Exam Vital signs: Vital Signs Temp 97.2 F 06/30/21 08:52 Pulse 87 06/30/21 08:52 Resp 14 06/30/21 08:52 BP 130/68 06/30/21 08:52 Pulse Ox 96 06/30/21 08:52 O2 Del Method 06/30/21 08:52 Weight 65.2 kg BMI result Body Mass Index 23.9 - Constitutional Present: no acute distress - Routine HEENT Exam Head: Present: normal inspection Eye: Present: normal appearance ENT: Present: mucous membranes moist - Routine Neck Exam Present: full ROM - Routine Respiratory Exam Present: CTAB - Routine Cardiovascular Exam Cardiovascular: Present: RRR, S1, S2 - Routine Abdominal Exam Present: soft, nontender - Routine Rectal Exam Patient deferred: digital exam - Routine Extremities Exam Present: nontender - Routine Back/Spine/Pelvis Exam Back/Spine: Absent: CVA tenderness - Routine Skin Exam Present: intact - Routine Neurological Exam Present: alert, oriented X3 - Detailed Neurological Exam: Coma Scale Eye Opening: Spontaneous (4) - Routine Psychiatric Exam Present: normal affect Data - Labs CBC & Chem 7: 06/01/22 09:44 06/01/22 09:44 Assessment and Plan Patient Active problem list reviewed?: Yes (1) Breast cancer Status: Acute Assessment and plan: This is a pleasant 81 year-old lady here for a follow-up visit. 1. Breast cancer: 81 year-old lady with right Breast Carcinoma, stage I disease, ER positive MS positive HER-2/melina negative. She had a lumpectomy, followed by radiation. She was on Anti-estrogen therapy, which she completed in December of 2014. She currently remains in remission. Her mammogram in May of 2020 was benign. She has not been able to get a mammogram this year because of the humeral fracture. Currently getting PT/OT at home. She will go as soon as she can elevate her arm. Bone mineral density was in May 2018 and revealed osteoporosis. Her energy level and blood counts have improved with the B12 and iron replacements. PLAN: She will continue to be followed along. Will have a repeat mammo in a few weeks time. I again offered her parenteral bisphosphonate therapy, for the osteoporosis. I have mentioned about Prolia, which would be convenient, every 6 months. She has declined,again. She will discuss this further with her primary about other choices for oste oporosis. She will return in 12 months for a follow-up visit. CC: Dr. Camarena. Kriss De Leon. (2) Anemia Status: Acute Assessment and plan: 2. Anemia: Iron deficiency: At her previous visit, last November, her hemoglobin had dropped down to 7.4. Concern was iron deficiency anemia. She was transfused. she had an upper endoscopy on 23 June 2020. This revealed: 1. Large hiatal hernia. 2. Reflux esophagitis. 3. Rule out celiac disease. Pathology revealed: A. DUODENAL MUCOSA WITH NO DIAGNOSTIC ABNORMALITY. Previous endoscopy from May to had revealed. ESOPHAGOGASTRIC JUNCTION-TYPE MUCOSA WITH AN ACUTE EROSIVE ESOPHAGITIS AND MINUTE FOCI OF SPECIALIZED NORMAN'S EPITHELIUM. NEGATIVE FOR DYSPLASIA. In addition she has B12 deficiency, she is on replacement therapy. Her I.F Antibody was negative, celiac antibody negative. She is no longer tired. Her hemoglobin is up at 11.1 gms. PLAN: She completed Iron replacement therapy. She will return here in 1 year for a follow-up visit. She will call me in case she gets fatigued prior to that time. Thank you, CC: Kriss De Leon. Dr. Camarena. (3) Colon carcinoma Status: Acute Assessment and plan: This is a pleasant 81-year-old lady with a previous history of breast cancer. She was diagnosed with colon cancer. Pathology revealed: Adenocarcinoma, moderate to poorly differentiated with mucinous features, e xtending in subserosa. Surgical margins negative. Metastatic carcinoma identified in 10/20 lymph nodes examined. Stage:pT3, N2b. I shared the above results with her and her cousin. Informed them that usually adjuvant chemotherapy is recommended for lymph node positive disease. However they feel that she is in no shape or form to receive any sort of chemotherapy. She is already suffering from nausea anorexia diarrhea and weight loss along with failure to thrive. As such she is not ready to even discussed the option of further treatment with risk of significant toxicity especially at her age with comorbidities. She has a VNA services. She is undergoing OT and PT couple of times a week at home. She would like something to help with her appetite. I offered supplements but she would not take them. CEA: 3.70. PLAN: Will try Megace for appetite. She will return in a month for a follow-up. Will discuss further options at that time, based upon how well she feels. Thank you. CC: Kriss De Leon. - Time Spent With Patient Time Spent with Patient (in minutes): 30
[2022-06-01 09:00] VITALS: BP 114/59; PULSE 101; RESP 14; TEMP 36.4; O2SAT 99; BMI 18.3
[2022-06-01 09:48] LABS: MANUAL DIFF FLAG NO
[2022-06-01 09:51] LABS: Basophils Absolute Auto 0.1 X10*3/uL (0.0-0.2); Basophils Percent Auto 1.4 % (0-2); Eosinophils Percent Auto 0.2 % (0-4); Hemoglobin 10.9 g/dl (12.0-16.0); Imm Gran Abs Auto 0.08 X10*3/uL (0.00-0.03); Lymphocytes Absolute Auto 0.8 X10*3/uL (1.2-4.9); Lymphocytes Percent Auto 10.2 % (20-40); Mean Corpuscular HGB Conc 32.1 g/dl (31.0-35.0); Mean Corpuscular Hemoglobin 27.8 pg (27.0-33.0); Mean Corpuscular Volume 86.7 fL (80.0-98.0); Mean Platelet Volume 10.5 fL (9.4-12.3); Monocytes Absolute Auto 0.5 X10*3/uL (0.1-1.2); Monocytes Percent Auto 6.5 % (2-11); Neutrophils Absolute Auto 6.5 x10*3/uL (2.0-8.3); Neutrophils Percent Auto 80.7 % (45-73); Platelet Count 307 X10*3/uL (160-400); Red Blood Count 3.92 X10*6/uL (4.20-5.50); Red Cell Distribution Width 16.2 % (11.0-16.0)
[2022-06-01 10:18] LABS: Alanine Aminotransferase 12 U/L (0-31); Albumin Level 4.3 g/dL (3.5-5.0); Alkaline Phosphatase 68 U/L (39-117); Anion Gap 17 (12-20); Aspartate Amino Transferase 19 U/L (5-31); Bilirubin Total 0.4 mg/dL (0.0-1.0); Blood Urea Nitrogen 43 mg/dL (9-16); Calcium 9.5 mg/dL (8.4-10.2); Carbon Dioxide 18 mmol/L (22-29); Chloride 108 mmol/L (96-108); Creatinine Clr Calc Pharmacy 20.7; Estimated Glomerular Filt Rate 29; Glucose Random 104 mg/dL (60-115); Potassium 4.1 mmol/L (3.3-5.1); Sodium 139 mmol/L (135-145); Total Protein 7.1 g/dL (6.5-8.0)
--- NOTE | 2022-06-01 15:39 | MHC.HEMONCMA ---
Pt was in for follow up. Clinical summary reviewed and updated, VSS. Labs were drawn. Pt to return in 2 months.
[2022-06-03 08:26] LABS: CA 27.29 13 U/mL (<38)
--- NOTE | 2022-07-26 15:16 | HE.ONCSEC ---
PATIENT CALLED TO SCHEDULE A NEW APPT W/ THAT SHE HAD MISSED ON JUL 07 . I RESCHEDULED PT FOR 08/03 PER PT'S REQUEST.
[2022-08-03 08:26] VITALS: BP 137/75; PULSE 99; RESP 12; TEMP 36.6; O2SAT 98; BMI 20.3
[2022-08-03 08:32] LABS: MANUAL DIFF FLAG NO
--- NOTE | 2022-08-03 08:32 | P.PNHO-ONC_ITS ---
Medical Summary - Medical Summary Date of Service: 08/03/22 Chief complaint: Follow-up for: 1. Colon carcinoma. 2. Breast cancer. Medical Summary: DIAGNOSES: 1. Stage I invasive ductal Carcinoma, right breast. 2. A 0.8 cm ER-positive, SC-positive, HER-2/melina negative by FISH. 3. Benign sentinel nodes. 4. Stage pT1bN0 (i-). 5. Anemia: Required transfusion, back in april. 6. Recent diagnosis of stage III colon cancer. CURRENT THERAPY: Tamoxifen started October 2009 completed 5 years in December 2014. Switched to Arimidex, due to LFT abnormalities. Interval History Interval history: 82 year-old lady, she is here for a followup visit. She is feeling relatively well now. Her energy level is much better. She has a good appetite. She has gained weight. She had a hard time sleeping. She was recently started on mirtazapine, it has not kicked in yet. She denies chest pain. She denies any previous history of asthma or COPD. She has not had any nausea vomiting heartburn indigestion or abdominal pain. She denies constipation. Denies seeing any gross blood in the stools. She is still rather frustrated on account of the colostomy. It is rather unpredictable. Sometimes she can go 3 days without having to change it. Sometimes it leaks. She denies any breast related complaints. She is in good spirits. The rest of the review of systems is unremarkable. INTERIM HISTORY: Patient was in house between 03/19 and 04/10, the discharge summary: Hospital Course: The patient is an 81F who was admitted last March 19, 2022 from a SNF because of vomiting. She had undergone emergency right colon resection, end-ileostomy, mucus fistula last March 07, 2022 because of cecal perforation from an obstructing right colon tumor which turned out to be an adenocarcinoma. She was discharged on March 16 but was readmitted for vomiting. Initial impression was partial SBO vs. postop ileus. In view of her persistent vomitting, she had an NGT inserted on hospital day one. She was also in urinary retention with note of more than 1 liter of urine drained with insertion of the catheter. 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 She was started on TPN after hospital day 4 after a PICC line was placed . Her NGT was discontinued after a week in the hospital after she started to have ielostomy output. She was kept on clear liquids for a few days and this was slowly advanced. She was transfused 1 unit for a Hg of 7.4 with appropriate increase. She was being followed by the Hospitalist for her medical issues. She had a physical therapist see her for deconditioning and frailty and it was recommended that she should be in Rehab on discharge. Her TPN was discontinued earlier this week after her oral intake had improved. She had otherwise remained stable during her stay. She had a prolonged stay due to her fraily and deconditioning, as she did not feel ready to be moved to Rehab. Her Zarco catheter is to be kept in place, as Dr. Williamson had stated that he will see the patient in the office to see her if this can be removed. She subsequently was discharged to rehab. However after couple days she went back to the hospital. She was here for 3 weeks. She was then transferred to [facility] for rehab where she stayed for a month. She just came home on april. Previous history: She fell on April 21 and broke her right humerus. She did not need surgery. She was in a sling for a while. She was at rehab for 6 and a half weeks. She had physical therapy and occupational therapy at home twice a week. Due to that she was not able to get her mammogram done last month. She will go once she is able to elevate her arm. She was seen here back in April. At that time her hemoglobin was down to 7.4. She was given blood transfusion x2. She was referred for further GI evaluation. She underwent an upper endoscopy on June 23, by Dr. Camarena. This revealed: IMPRESSION: 1. Large hiatal hernia with associated proximal gastritis. 2. Duodenal polyp and/or lipoma, status post biopsy. 3. Rule out celiac disease. PLAN: The results of the biopsy will be checked. She was advised to use iron supplements daily. She will be started on omeprazole 20 mg each morning, but was advised to continue her H2 sabrina each evening. She will be seen within 2 or 3 months for a followup visit. She did have a negative colonoscopy in 2015 for evaluation of anemia and also had a negative colonoscopy in 2007. Therefore, we may hold off on the colonoscopy given the findings today and the clinical history. This has been discussed with her cousin. She was told she had hiatus hernia, and some ulceration. Pathology revealed: Duodenal mucosa within normal limits, polypoid small intestinal mucosa within normal limits. Diagnostic features of celiac disease not seen. . Review of Systems - Constitutional Reports system reviewed and no additional complaints, except as documented, Reports weight gain, Denies fatigue, Denies fever(s), Denies weakness - Eyes Reports system reviewed and no additional complaints, except as documented, Denies blurry vision - ENT Reports system reviewed and no additional complaints, except as documented, Reports hearing normal, Denies bleeding gums - Cardiovascular Reports system reviewed and no additional complaints, except as documented, Denies bluish discoloration of hand/feet - Respiratory Reports no additional respiratory complaints - Gastrointestinal Reports system reviewed and no additional complaints, except as documented - Genitourinary Reports no additional female genitourinary complaints - Musculoskeletal Reports system reviewed and no additional complaints, except as documented - Integumentary/Breasts Skin/Breast: Reports no additional skin complaints - Neurologic Reports system reviewed and no additional complaints, except as documented, Reports as per HPI, Reports hearing normal, Reports weakness - Psychiatric Reports system reviewed and no additional complaints, except as documented - Endocrine Reports no additional endocrine complaints - Hematologic/Lymphatic Reports system reviewed and no additional complaints, except as documented - Allergic/Immunologic Reports system reviewed and no additional complaints, except as documented PMFSH Medical History: Medical History (Last Reviewed 08/03/22 @ 08:32 by Shikha Rendon CMA) Anemia B12 deficiency Bacteremia due to Gram-negative bacteria Breast cancer Chronic restrictive lung disease Colon carcinoma COPD (chronic obstructive pulmonary disease) Dyspnea Emphysema lung GERD (gastroesophageal reflux disease) Hypertension Osteoporosis Postoperative ileus Pulmonary nodule Sepsis Tachycardia Wrist fracture, bilateral Functional capacity: uses cane/walker Patient : No Family History: Family History (Last Reviewed 08/03/22 @ 08:32 by Shikha Rendon CMA) Mother Vaginal cancer Maternal Aunt Breast cancer Surgical History: Surgical History (Last Reviewed 08/03/22 @ 08:32 by Shikha Rendon CMA) H/O colectomy H/O hysterectomy with oophorectomy History of appendectomy History of cataract surgery History of laparotomy History of lumpectomy of right breast Hx of colonoscopy Hx of esophagogastroduodenoscopy Hx of lumpectomy S/P excision of lipoma Status post exploratory laparotomy Social History: Social History (Last Reviewed 08/03/22 @ 08:32 by Shikha Rendon CMA) Living Situation History: Household Members: None Housing: House Are you a primary daycare worker to a significant other at home: No Do you presently have visiting nurse or other home services: Yes Do you presently have visiting nurse or other home services comment: once a week for surgery Alcohol History Details: 1. How often do you have a drink containing alcohol?: a. Never Tobacco History: Patient Tobacco Use Status: Former Tobacco user Tobacco use type: Cigarette Years Smoked: 25 years Second Hand Smoke Exposure: No Substance Use History: Use of substances other than those prescribed or required for medical reasons : No Domestic Abuse History: Have you been hit, kicked, punched, or otherwise hurt by someone within the past year? If so, by whom?: No Advance Directives: Advance Directives: No Advance Directives Information Provided: Yes Advance Directives Date on File: 03/19/22 Homicidal Assessment: Do you have thoughts of harming others: None Do you have a plan to hurt others: No Plan Do you have the means to hurt others: No Nutrition Assessment: Recently lost weight without trying: Yes How much weight loss: 2-13 pounds Eating poorly because of decreased appetite: Yes Nutrition screen score: 4 Patient : No Occupation Assessmet: service: No Current occupational status: retired Current occupational status: disabled Current occupation: rt handed Oncology Screenings - ECOG Performance Status ECOG Performance Status: 1 Home Medications and Allergies Home Medications Medication Instructions Recorded Confirmed Type cholecalciferol (vitamin D3) 25 25 mcg PO DAILY 06/03/20 08/03/22 History mcg (1,000 unit) tablet ferrous sulfate 325 mg (65 mg 325 mg PO DAILY 06/03/20 08/03/22 History iron) tablet qgawnzdsjdij-pdszfovx-bdpfxp tablet 1 tab PO DAILY 06/03/20 08/03/22 History tizanidine 4 mg tablet 4 mg PO BEDTIME PRN Muscle Pain 06/03/20 08/03/22 History calcium carbonate 500 mg calcium 500 mg PO DAILY 03/07/22 08/03/22 History (1,250 mg) tablet cyanocobalamin (vitamin B-12) 1,000 mcg IM QMONTH 03/19/22 08/03/22 History 1,000 mcg/mL injection solution enoxaparin 30 mg/0.3 mL 30 mg subcut Q24H 03/19/22 08/03/22 History subcutaneous syringe (Lovenox) mirtazapine 15 mg tablet 15 mg PO BEDTIME 08/02/22 08/03/22 History Allergies Allergy/AdvReac Type Severity Reaction Status Date / Time meperidine [From Demerol] Allergy Mild VOMITING Verified 08/03/22 08:32 Exam Vital signs: Vital Signs Temp 97.6 F 06/01/22 09:00 Pulse 101 H 06/01/22 09:00 Resp 14 06/01/22 09:00 BP 114/59 L 06/01/22 09:00 Pulse Ox 99 06/01/22 09:00 O2 Del Method 06/01/22 09:00 Weight 50.2 kg BMI result Body Mass Index 18.3 - Constitutional Present: no acute distress - Routine HEENT Exam Head: Present: normal inspection Eye: Present: normal appearance ENT: Present: mucous membranes moist - Routine Neck Exam Present: full ROM - Routine Respiratory Exam Present: CTAB - Routine Cardiovascular Exam Cardiovascular: Present: RRR, S1, S2 - Routine Abdominal Exam Present: soft, nontender - Routine Rectal Exam Patient deferred: digital exam - Routine Extremities Exam Present: nontender - Routine Back/Spine/Pelvis Exam Back/Spine: Absent: CVA tenderness - Routine Skin Exam Present: intact - Routine Neurological Exam Present: alert, oriented X3 - Detailed Neurological Exam: Coma Scale Eye Opening: Spontaneous (4) - Routine Psychiatric Exam Present: normal affect Data - Labs CBC & Chem 7: 08/03/22 08:29 08/03/22 08:29 Assessment and Plan Patient Active problem list reviewed?: Yes (1) Breast cancer Status: Acute Assessment and plan: This is a pleasant 82 year-old lady here for a follow-up visit. 1. Breast cancer: 81 year-old lady with right Breast Carcinoma, stage I disease, ER positive SC positive HER-2/melina negative. She had a lumpectomy, followed by radiation. She was on Anti-estrogen therapy, which she completed in December of 2014. She currently remains in remission. Her mammogram in May of 2020 was benign. She was not been able to get a mammogram last year because of the humeral fracture. Bone mineral density was in May 2018 and revealed osteoporosis. PLAN: She will continue to be followed along. Will have a repeat mammo in a few weeks time. I had offered her parenteral bisphosphonate therapy, for the osteoporosis. I have mentioned about Prolia, which would be convenient, every 6 months. She had again declined. She will discuss this further with her primary about other choices for osteoporosis. She will return in 3 months for a follow-up visit. CC: Dr. Camarena. Kriss De Leon. (2) Anemia Status: Acute Assessment and plan: 2. 82 year old lady with H/O Anemia: Iron deficiency: At her previous visit, last November, her hemoglobin had dropped down to 7.4. Concern was iron deficiency anemia. She was transfused. she had an upper endoscopy on 23 June 2020. This revealed: 1. Large hiatal hernia. 2. Reflux esophagitis. 3. Rule out celiac disease. Pathology revealed: A. DUODENAL MUCOSA WITH NO DIAGNOSTIC ABNORMALITY. Previous endoscopy from May to had revealed. ESOPHAGOGASTRIC JUNCTION-TYPE MUCOSA WITH AN ACUTE EROSIVE ESOPHAGITIS AND MINUTE FOCI OF SPECIALIZED NORMAN'S EPITHELIUM. NEGATIVE FOR DYSPLASIA. In addition she has B12 deficiency, she is on replacement therapy. Her I.F Antibody was negative, celiac antibody negative. Her hemoglobin is 10.3 gms. She was subsequently diagnosed with colon cancer. PLAN: I will repeat her iron studies. Check B12 level. Replace with supplements based upon the above results. She will return in 3 months for a follow-up visit. She will call me in case she gets fatigued prior to that time. Thank you, CC: Kriss De Leon. Dr. Camarena. (3) Colon carcinoma Status: Acute Assessment and plan: This is a pleasant 82-year-old lady with a previous history of breast cancer. She was diagnosed with colon cancer. Pathology revealed: Adenocarcinoma, moderate to poorly differentiated with mucinous features, extending in subserosa. Surgical margins negative. Metastatic carcinoma identified in 10/20 lymph nodes examined. Stage:pT3, N2b. CEA: 3.70. She was seen by Dr. Sihrley on 08/02. His note: The patient has extensive emphysema and has significant deconditioning. Will benefit from starting pulmonary rehab at this time. Repeat CT scan of the chest in 3 months, to follow-up pulmonary nodules. Follow-up July 2022 or sooner if she develops any worsening symptoms CT scan of the chest, on 07/03: Several new left upper lobe nodules largest measuring 4 mm. Severe emphysema. Moderate size esophageal hernia. Increasing bilateral axillary lymphadenopathy. In general, adjuvant chemotherapy is recommended for lymph node positive disease. I did go over the details of the regimen including potential side effects of treatment. However she feels that she is only now starting to feel better and would not like to have a setback, if she gets the chemotherapy and has side effects: I.e.nausea, anorexia diarrhea and weight loss with failure to thrive. She would be at risk of significant toxicity especially at her age with significant comorbidities. She said she will take her chances Her CEA level is 3.0, this is reassuring. PLAN: I will recheck imaging in about a month's time. Dr. Shirley will be following up on the pulmonary nodules as well. She has an appointment with Dr. Cortez, in August. She will return in 3 months for a follow-up. Thank you. CC: Kriss De Leon. - Time Spent With Patient Time Spent with Patient (in minutes): 30
[2022-08-03 08:36] LABS: Basophils Absolute Auto 0.1 X10*3/uL (0.0-0.2); Eosinophils Absolute Auto 0.1 X10*3/uL (0.0-0.4); Eosinophils Percent Auto 1.4 % (0-4); Hematocrit 32.1 % (37.0-47.0); Hemoglobin 10.3 g/dl (12.0-16.0); Imm Gran Abs Auto 0.02 X10*3/uL (0.00-0.03); Imm Gran Pct Auto 0.5 % (0.0-0.4); Lymphocytes Absolute Auto 1.3 X10*3/uL (1.2-4.9); Lymphocytes Percent Auto 30.1 % (20-40); Mean Corpuscular HGB Conc 32.1 g/dl (31.0-35.0); Mean Corpuscular Hemoglobin 28.9 pg (27.0-33.0); Mean Corpuscular Volume 90.2 fL (80.0-98.0); Monocytes Absolute Auto 0.5 X10*3/uL (0.1-1.2); Monocytes Percent Auto 10.6 % (2-11); Neutrophils Absolute Auto 2.4 x10*3/uL (2.0-8.3); Neutrophils Percent Auto 54.4 % (45-73); Platelet Count 322 X10*3/uL (160-400); Red Blood Count 3.56 X10*6/uL (4.20-5.50); Red Cell Distribution Width 13.7 % (11.0-16.0); White Blood Count 4.4 X10*3/uL (4.8-10.8)
[2022-08-03 08:49] LABS: Alanine Aminotransferase 14 U/L (0-31); Alkaline Phosphatase 75 U/L (39-117); Anion Gap 12 (12-20); Aspartate Amino Transferase 21 U/L (5-31); Blood Urea Nitrogen 22 mg/dL (9-16); Calcium 9.1 mg/dL (8.4-10.2); Carbon Dioxide 23 mmol/L (22-29); Chloride 113 mmol/L (96-108); Creatinine Clr Calc Pharmacy 28.8; Estimated Glomerular Filt Rate 38; Glucose Random 84 mg/dL (60-115); Potassium 4.4 mmol/L (3.3-5.1); Sodium 144 mmol/L (135-145); Total Protein 6.3 g/dL (6.5-8.0)
--- NOTE | 2022-08-03 12:43 | MHC.HEMONCMA ---
Pt was in for follow up. Clinical summary reviewed and updated, VSS. Labs were drawn. Pt to return 3 months.
[2022-08-03 13:09] LABS: Ferritin 15 ng/mL (10-250); Iron 92 mcg/dL (30-160); Percent Iron Saturation 29 % (15-50); Total Iron Binding Capacity 316 mcg/dL (228-428); Unsaturated Iron Binding 224 ug/dL
[2022-08-03 13:19] LABS: Vitamin B12 > 2000 pg/mL (200-900)
[2022-08-05 08:48] LABS: CA 27.29 15 U/mL (<38)
--- NOTE | 2022-08-07 11:59 | HO.HEMONCSCH ---
Ct scan sent to [facility].
[2022-11-14 09:24] VITALS: BP 127/66; PULSE 88; RESP 17; TEMP 36.7; O2SAT 98; BMI 20.1
--- NOTE | 2022-11-14 09:40 | P.PNHO-ONC_ITS ---
Medical Summary - Medical Summary Date of Service: 11/14/22 Chief complaint: Follow-up for: 1. Colon cancer. 2. Breast cancer. Primary Care Provider: Kriss De Leon NP Medical Summary: DIAGNOSES: 1. Stage I invasive ductal Carcinoma, right breast. 2. A 0.8 cm ER-positive, KS-positive, HER-2/melina negative by FISH. 3. Benign sentinel nodes. 4. Stage pT1bN0 (i-). 5. Anemia: Required transfusion, back in april. 6. Recent diagnosis of stage III colon cancer. CURRENT THERAPY: Tamoxifen started October 2009 completed 5 years in December 2014. Switched to Arimidex, due to LFT abnormalities. Interval History Interval history: 82 year-old lady, she is here for a followup visit. She is feeling reasonably well now. Lately she has noted that her left ear has been blocked. She has had vertigo. She tried meclizine. She takes it mostly at night. Her energy level is good. She denies any breast related complaints. She denies chest pain. She denies any previous history of asthma or COPD. She has not had any nausea vomiting heartburn indigestion or abdominal pain. She denies constipation. Denies seeing any gross blood in the stools. She is still rather frustrated on account of the colostomy. It is rather unpredictable. Sometimes it leaks. She is homebound because of that. Sometimes she can go 3 days without having to change it. She has a good appetite. She has gained weight. She had a hard time sleeping. She was started on mirtazapine. She is in good spirits. The rest of the review of systems is unremarkable. She has seen Dr. Camarena and Dr. Cortez. INTERIM HISTORY: Patient was in house between 03/19 and 04/10/22, the discharge summary: Hospital Course: The patient is an 81F who was admitted last March 19, 2022 from a SNF because of vomiting. She had undergone emergency right colon resection, end-ileostomy, mucus fistula last March 07, 2022 because of cecal perforation from an obstructing right colon tumor which turned out to be an adenocarcinoma. She was discharged on March 16 but was readmitted for vomiting. Initial impression was partial SBO vs. postop ileus. In view of her persistent vomittin g, she had an NGT inserted on hospital day one. She was also in urinary retention with note of more than 1 liter of urine drained with insertion of the catheter. 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 She was started on TPN after hospital day 4 after a PICC line was placed . Her NGT was discontinued after a week in the hospital after she started to have ielostomy output. She was kept on clear liquids for a few days and this was slowly advanced. She was transfused 1 unit for a Hg of 7.4 with appropriate increase. She was being followed by the Hospitalist for her medical issues. She had a physical therapist see her for deconditioning and frailty and it was recommended that she should be in Rehab on discharge. Her TPN was discontinued earlier this week after her oral intake had improved. She had otherwise remained stable during her stay. She had a prolonged stay due to her fraily and deconditioning, as she did not feel ready to be moved to Rehab. Her Zarco catheter is to be kept in place, as Dr. Williamson had stated that he will see the patient in the office to see her if this can be removed. She subsequently was discharged to rehab. However after couple days she went back to the hospital. She was here for 3 weeks. She was then transferred to [facility] for rehab where she stayed for a month. She just came home on april. Previous history: She fell on April 21 and broke her right humerus. She did not need surg munir. She was in a sling for a while. She was at rehab for 6 and a half weeks. She had physical therapy and occupational therapy at home twice a week. Due to that she was not able to get her mammogram done last month. She will go once she is able to elevate her arm. She was seen here back in April. At that time her hemoglobin was down to 7.4. She was given blood transfusion x2. She was referred for further GI evaluation. She underwent an upper endoscopy on June 23, by Dr. Camarena. This revealed: IMPRESSION: 1. Large hiatal hernia with associated proximal gastritis. 2. Duodenal polyp and/or lipoma, status post biopsy. 3. Rule out celiac disease. PLAN: The results of the biopsy will be checked. She was advised to use iron supplements daily. She will be started on omeprazole 20 mg each morning, but was advised to continue her H2 sabrina each evening. She will be seen within 2 or 3 months for a followup visit. She did have a negative colonoscopy in 2015 for evaluation of anemia and also had a negative colonoscopy in 2007. Therefore, we may hold off on the colonoscopy given the findings today and the clinical history. This has been discussed with her cousin. She was told she had hiatus hernia, and some ulceration. Pathology revealed: Duodenal mucosa within normal limits, polypoid small intestinal mucosa within normal limits. Diagnostic features of celiac disease not seen. . Review of Systems - Constitutional Reports system reviewed and no additional complaints, except as documented - Eyes Reports system reviewed and no additional complaints, except as documented - ENT Reports system reviewed and no additional complaints, except as documented - Cardiovascular Reports system reviewed and no additional complaints, except as documented - Respiratory Reports no additional respiratory complaints - Gastrointestinal Reports system reviewed and no additional complaints, except as documented - Genitourinary Reports no additional female genitourinary complaints - Musculoskeletal Reports system reviewed and no additional complaints, except as documented - Integumentary/Breasts Skin/Breast: Reports no additional skin complaints - Neurologic Reports system reviewed and no additional complaints, except as documented, Reports as per HPI, Reports hearing normal, Denies weakness - Psychiatric Reports system reviewed and no additional complaints, except as documented - Endocrine Reports no additional endocrine complaints - Hematologic/Lymphatic Reports system reviewed and no additional complaints, except as documented - Allergic/Immunologic Reports system reviewed and no additional complaints, except as documented PMFSH Medical History: Medical History (Last Reviewed 10/25/22 @ 11:12 by Marty Cortez MD) Anemia B12 deficiency Bacteremia due to Gram-negative bacteria Breast cancer Chronic restrictive lung disease Colon carcinoma COPD (chronic obstructive pulmonary disease) Dyspnea Emphysema lung GERD (gastroesophageal reflux disease) Hypertension Osteoporosis Postoperative ileus Pulmonary nodule Sepsis Tachycardia Wrist fracture, bilateral Functional capacity: uses cane/walker Patient : No Family History: Family History (Last Reviewed 10/25/22 @ 11:12 by Marty Cortez MD) Mother Vaginal cancer Maternal Aunt Breast cancer Surgical History: Surgical History (Last Reviewed 10/25/22 @ 11:12 by Marty Cortez MD) H/O colectomy H/O hysterectomy with oophorectomy History of appendectomy History of cataract surgery History of laparotomy History of lumpectomy of right breast Hx of colonoscopy Hx of esophagogastroduodenoscopy Hx of lumpectomy S/P excision of lipoma Status post exploratory laparotomy Social History: Social History (Last Reviewed 10/25/22 @ 11:12 by Marty Cortez MD) Living Situation History: Household Members: None Housing: House Are you a primary nursing care partner to a significant other at home: No Do you presently have visiting nurse or other home services: Yes Do you presently have visiting nurse or other home services comment: once a week for surgery Tobacco History: Patient Tobacco Use Status: Former Tobacco user Tobacco use type: Cigarette Years Smoked: 25 years Second Hand Smoke Exposure: No Advance Directives: Advance Directives Date on File: 03/19/22 Occupation Assessmet: service: No Current occupational status: retired Current occupational status: disabled Current occupation: rt handed Oncology Screenings - ECOG Performance Status ECOG Performance Status: 1 Home Medications and Allergies Home Medications Medication Instructions Recorded Confirmed Type cholecalciferol (vitamin D3) 25 25 mcg PO DAILY 06/03/20 11/14/22 History mcg (1,000 unit) tablet ferrous sulfate 325 mg (65 mg 325 mg PO DAILY 06/03/20 11/14/22 History iron) tablet vzckzopqfyya-gahtewzb-mxvwje tablet 1 tab PO DAILY 06/03/20 11/14/22 History tizanidine 4 mg tablet 4 mg PO BEDTIME PRN Muscle Pain 06/03/20 11/14/22 History calcium carbonate 500 mg calcium 500 mg PO DAILY 03/07/22 11/14/22 History (1,250 mg) tablet cyanocobalamin (vitamin B-12) 1,000 mcg IM QMONTH 03/19/22 11/14/22 History 1,000 mcg/mL injection solution hydrochlorothiazide 25 mg tablet 25 mg PO DAILY 10/25/22 11/14/22 History meclizine 25 mg tablet 1 tab PO TID PRN dizziness 11/14/22 11/14/22 History Allergies Allergy/AdvReac Type Severity Reaction Status Date / Time meperidine [From Demerol] Allergy Mild VOMITING Verified 10/25/22 10:59 Exam Vital signs: Vital Signs Temp 98.0 F 11/14/22 09:24 Pulse 88 11/14/22 09:24 Resp 17 11/14/22 09:24 BP 127/66 11/14/22 09:24 Pulse Ox 98 11/14/22 09:24 O2 Del Method 11/14/22 09:24 Intake & Output 11/13/22 11/14/22 11/14/22 18:59 06:59 18:59 Other: Weight 54.9 kg Weight in Grams 10500 Weight 54.9 kg BMI result Body Mass Index 20.1 - Constitutional Present: no acute distress - Routine HEENT Exam Head: Present: normal inspection Eye: Present: normal appearance ENT: Present: mucous membranes moist - Routine Neck Exam Present: full ROM - Routine Respiratory Exam Present: CTAB - Routine Cardiovascular Exam Cardiovascular: Present: RRR, S1, S2 - Routine Abdominal Exam Present: soft, nontender - Routine Rectal Exam Patient deferred: digital exam - Routine Extremities Exam Present: nontender - Routine Back/Spine/Pelvis Exam Back/Spine: Absent: CVA tenderness - Routine Skin Exam Present: intact - Routine Neurological Exam Present: alert, oriented X3 - Detailed Neurological Exam: Coma Scale Eye Opening: Spontaneous (4) - Routine Psychiatric Exam Present: normal affect Data - Labs CBC & Chem 7: 11/14/22 09:31 11/14/22 09:31 Assessment and Plan Patient Active problem list reviewed?: Yes (1) Breast cancer Status: Acute Assessment and plan: This is a pleasant 82 year-old lady here for a follow-up visit. 1. Breast cancer: 81 year-old lady with right Breast Carcinoma, stage I disease, ER positive KS positive HER-2/melina negative. She had a lumpectomy, followed by radiation. She was on Anti-estrogen therapy, which she completed in December of 2014. She currently remains in remission. Her mammogram in May of 2020 was benign. She was not been able to get a mammogram in 2020, because of the humeral fracture. Bone mineral density was in May 2018 and revealed osteoporosis. PLAN: She will continue to be followed along. Will have a repeat mammo in a few weeks time. I had offered her parenteral bisphosphonate therapy, for the osteoporosis. I have mentioned about Prolia, which would be convenient, every 6 months. She has again declined. She will discuss this further with her primary about other choices for osteoporosis. She will return in 3 months for a follow-up visit. CC: Dr. Camarena. Kriss De Leon. (2) Anemia Status: Acute Assessment and plan: 2. 82 year old lady with H/O Anemia: Iron deficiency: At her previous visit, last November, her hemoglobin had dropped down to 7.4. Concern was iron deficiency anemia. She was transfused. she had an upper endoscopy on 23 June 2020. This revealed: 1. Large hiatal hernia. 2. Reflux esophagitis. 3. Rule out celiac disease. Pathology revealed: A. DUODENAL MUCOSA WITH NO DIAGNOSTIC ABNORMALITY. Previous endoscopy from May to had revealed. ESOPHAGOGASTRIC JUNCTION-TYPE MUCOSA WITH AN ACUTE EROSIVE ESOPHAGITIS AND MINUTE FOCI OF SPECIALIZED NORMAN'S EPITHELIUM. NEGATIVE FOR DYSPLASIA. In addition she has B12 deficiency, she is on replacement therapy. Her I.F Antibody was negative, celiac antibody negative. Her hemoglobin is 10.3 gms. She was subsequently diagnosed with colon cancer. PLAN: I will repeat her iron studies. Check B12 level. Replace with supplements based upon the above results. She will return in 3 months for a follow-up visit. She will call me in case she gets fatigued prior to that time. Thank you, CC: Kriss De Leon. Dr. Camarena. (3) Colon carcinoma Status: Acute Assessment and plan: This is a pleasant 82-year-old lady with a previous history of breast cancer. She was diagnosed with colon cancer. Pathology revealed: Adenocarcinoma, moderate to poorly differentiated with mucinous features, extending in subserosa. Surgical margins negative. Metastatic carcinoma identified in 10/20 lymph nodes examined. Stage:pT3, N2b. CEA: 3.70. She was seen by Dr. Shirley on 08/02/22. His note: The patient has extensive emphysema and has significant deconditioning. Will be nefit from starting pulmonary rehab at this time. Repeat CT scan of the chest in 3 months, to follow-up pulmonary nodules. Follow-up July 2022 or sooner if she develops any worsening symptoms CT scan of the chest, on 07/03: Several new left upper lobe nodules largest measuring 4 mm. Severe emphysema. Moderate size esophageal hernia. Increasing bilateral axillary lymphadenopathy. In general, adjuvant chemotherapy is recommended for lymph node positive disease. I did discuss the details of the regimen including potential side effects of treatment. However at that time, she felt that she is only starting to feel better and would not have liked to have a setback, if she gets the chemotherapy and has side effects: i.e.nausea, anorexia diarrhea and weight loss with failure to thrive. She would've been at risk of significant toxicity especially at her age with significant comorbidities. She said she will take her chances. She elected against it. Her CEA level is Previously 3.0, this is reassuring. PLAN: I will recheck imaging in [address] Shirley will be following up on the pulmonary nodules as well. She has an appointment with Dr. Cortez, in November. She will return in 3 months for a follow-up. Thank you. CC: Kriss De Leon. - Time Spent With Patient Time Spent with Patient (in minutes): 26
[2022-11-14 09:45] LABS: Hematocrit 36.2 % (37.0-47.0); Mean Corpuscular HGB Conc 32.3 g/dl (31.0-35.0); Mean Corpuscular Hemoglobin 29.1 pg (27.0-33.0); Mean Platelet Volume 10.5 fL (9.4-12.3); Platelet Count 327 X10*3/uL (160-400); Red Blood Count 4.02 X10*6/uL (4.20-5.50); White Blood Count 5.3 X10*3/uL (4.8-10.8)
[2022-11-14 09:46] LABS: Hemoglobin 11.7 g/dl (12.0-16.0)
[2022-11-14 10:00] LABS: Alanine Aminotransferase 15 U/L (0-31); Albumin Level 4.2 g/dL (3.5-5.0); Alkaline Phosphatase 79 U/L (39-117); Anion Gap 11 (12-20); Aspartate Amino Transferase 18 U/L (5-31); Bilirubin Total 0.9 mg/dL (0.0-1.0); Blood Urea Nitrogen 35 mg/dL (9-16); Calcium 9.5 mg/dL (8.4-10.2); Carbon Dioxide 23 mmol/L (22-29); Chloride 111 mmol/L (96-108); Creatinine Clr Calc Pharmacy 29.8; Estimated Glomerular Filt Rate 40; Glucose Random 88 mg/dL (60-115); Potassium 4.4 mmol/L (3.3-5.1); Sodium 141 mmol/L (135-145); Total Protein 6.7 g/dL (6.5-8.0)
[2022-11-14 10:20] LABS: Acanthocytes 2+ (3-5) /OIF; Band Neutrophils Percent 2 % (3-5); Basophils Abs Manual 0.2 X10*3/uL (0.0-0.2); Basophils Percent Manual 4 % (0-2); Lymphocytes Absolute Manual 1.2 X10*3/uL (1.2-4.9); Lymphocytes Percent Manual 22 % (20-40); Monocytes Absolute Manual 0.4 X10*3/uL (0.1-1.2); Monocytes Percent Manual 7 % (2-11); Neutrophils Absolute Manual 3.6 X10*3/uL (2.0-8.3); Neutrophils Percent Manual 65 % (45-73); RBC Morphology NOTED
[2022-11-14 10:21] LABS: Ovalocytes 1+ (5-14) /OIF; Platelet Estimate NORMAL (NORMAL); Platelet Morphology Comment NORMAL
--- NOTE | 2022-11-14 10:35 | MHC.HEMONC ---
Here for follow up with Dr Davis. Labs done. Meds reviewed, VSS. Does c/o vertigo, stating from blocked ear on right. Has appointment with Dr Maurice on Monday 11/20. Pt referred to PT for vertigo. Physician order sheet faxed to PT. Next f/u in 3 months.
--- NOTE | 2022-11-14 16:37 | MHC.HEMONC ---
Orders for CT scan abd/chest printed and given to Aminata Camejo MA to place in OF
--- NOTE | 2022-11-15 08:46 | MHC.HEMONCMA ---
Ct scan of chest/ab/pelvis entered in OF.
[2022-11-16 09:03] LABS: CA 27.29 17 U/mL (<38)
--- NOTE | 2022-11-24 09:59 | MHC.HEMONCMA ---
spoke to patient in regards to her ct scan, she changed the scheduled date to 02/08/23 at 8am.
--- NOTE | 2023-02-01 10:14 | MHC.HEMONCMA ---
patient aware of ct scans on 02/08 at 8am
--- NOTE | 2023-02-22 08:49 | HE.ONCSEC ---
Called pt to confirm appt, lvm.
--- NOTE | 2023-02-23 09:30 | P.PNHO-ONC_ITS ---
Medical Summary - Medical Summary Date of Service: 02/23/23 Chief complaint: Follow-up for: Breast cancer. Colon cancer. Primary Care Provider: Kriss De Leon NP Medical Summary: DIAGNOSES: 1. Stage I invasive ductal Carcinoma, right breast. 2. A 0.8 cm ER-positive, TN-positive, HER-2/melina negative by FISH. 3. Benign sentinel nodes. 4. Stage pT1bN0 (i-). 5. Anemia: Required transfusion, back in april. 6. Recent diagnosis of stage III colon cancer. CURRENT THERAPY: Tamoxifen started October 2009 completed 5 years in December 2014. Switched to Arimidex, due to LFT abnormalities. Interval History Interval history: 82 year-old lady, she is here for a followup visit. She is feeling okay. She tells me her vertigo go hurt cured with the vestibular rehab. Her energy level is good. She still does not sleep too well. She denies any breast related complaints. She denies chest pain. She denies any previous history of asthma or COPD. She has not had any nausea vomiting heartburn indigestion or abdominal pain. She denies constipation. Denies seeing any gross blood in the stools. She is still rather frustrated on account of the colostomy. It is rather unpre dictable. Sometimes it leaks. She is homebound because of that. Sometimes she can go 3 days without having to change it. She has a good appetite. She has gained weight. She had a hard time sleeping. She was started on mirtazapine. She is in good spirits. The rest of the review of systems is unremarkable. She has seen Dr. Camarena and Dr. Cortez. She had a CT scan of chest abdomen pelvis on 02/08 which revealed: 1. Pulmonary nodules are unchanged. Some of the previously noted nodules are not well seen secondary to motion artifact. 2. No convincing evidence of metastatic disease in the abdomen or pelvis. 3. Incidental note made of unchanged tiny liver hypodensity, right renal angiomyolipoma, hiatal hernia, colonic diverticulosis, degenerative changes in the spine, hysterectomy, shotty retroperitoneal and iliac chain lymph nodes, and degenerative changes in the spine with grade 1 anterolisthesis L5 on S1. INTERIM HISTORY: Patient was in house between 03/19 and 04/10/22, the discharge summary: Hospital Course: The patient is an 81F who was admitted last March 19, 2022 from a SNF because of vomiting. She had undergone emergency right colon resection, end-ileostomy, mucus fistula last March 07, 2022 because of cecal perforation from an obstructing right colon tumor which turned out to be an adenocarcinoma. She was discharged on March 16 but was readmitted for vomiting. Initial impression was partial SBO vs. postop ileus. In view of her persistent vomitting, she had an NGT inserted on hospital day one. She was also in urinary retention with note of more than 1 liter of urine drained with insertion of the catheter. 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 She was started on TPN after hospital day 4 after a PICC line was placed . Her NGT was discontinued after a week in the hospital after she started to have ielostomy output. She was kept on clear liquids for a few days and this was slowly advanced. She was transfused 1 unit for a Hg of 7.4 with appropriate increase. She was casandra ng followed by the Hospitalist for her medical issues. She had a physical therapist see her for deconditioning and frailty and it was recommended that she should be in Rehab on discharge. Her TPN was discontinued earlier this week after her oral intake had improved. She had otherwise remained stable during her stay. She had a prolonged stay due to her fraily and deconditioning, as she did not feel ready to be moved to Rehab. Her Zarco catheter is to be kept in place, as Dr. Williamson had stated that he will see the patient in the office to see her if this can be removed. She subsequently was discharged to rehab. However after couple days she went back to the hospital. She was here for 3 weeks. She was then transferred to [facility] for rehab where she stayed for a month. She just came home on april. Previous history: She fell on April 21 and broke her right humerus. She did not need surgery. She was in a sling for a while. She was at rehab for 6 and a half weeks. She had physical therapy and occupational therapy at home twice a week. Due to that she was not able to get her mammogram done last month. She will go once she is able to elevate her arm. She was seen here back in April. At that time her hemoglobin was down to 7.4. She was given blood transfusion x2. She was referred for further GI evaluation. She underwent an upper endoscopy on June 23, by Dr. Camarena. This revealed: IMPRESSION: 1. Large hiatal hernia with associated proximal gastritis. 2. Duodenal polyp and/or lipoma, status post biopsy. 3. Rule out celiac disease. PLAN: The results of the biopsy will be checked. She was advised to use iron supplements daily. She will be started on omeprazole 20 mg each morning, but was advised to continue her H2 sabrina each evening. She will be seen within 2 or 3 months for a followup visit. She did have a negative colonoscopy in 2015 for evaluation of anemia and also had a negative colonoscopy in 2007. Therefore, we may hold off on the colonoscopy given the findings today and the clinical history. This has been discussed with her cousin. She was told she had hiatus hernia, and some ulceration. Pathology revealed: Duodenal mucosa within normal limits, polypoid small intestinal mucosa within normal limits. Diagnostic features of celiac disease not seen. . Review of Systems - Constitutional Reports no additional constitutional complaints, Denies lack of energy, Denies malaise, Denies weight loss - Eyes Reports no additional eye complaints - ENT Reports no additional ear, nose, mouth, and throat complaints - Cardiovascular Reports no additional cardiovascular complaints - Respiratory Reports no additional respiratory complaints - Gastrointestinal Reports no additional gastrointestinal complaints - Genitourinary Reports no additional female genitourinary complaints - Musculoskeletal Reports no additional musculoskeletal complaints - Integumentary/Breasts Skin/Breast: Reports no additional skin complaints - Neurologic Reports no additional neurologic complaints, Reports as per HPI, Reports hearing normal, Denies weakness - Psychiatric Reports no additional psychiatric complaints - Endocrine Reports no additional endocrine complaints - Hematologic/Lymphatic Reports no additional hematologic/lymphatic complaints - Allergic/Immunologic Reports no additional allergic/immunologic complaints [facility] Medical History: Medical History (Last Reviewed 02/23/23 @ 09:36 by Sha Smith [employer]YST[employer]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) Anemia B12 deficiency Bacteremia due to Gram-negative bacteria Breast cancer Chronic restrictive lung disease Colon carcinoma COPD (chronic obstructive pulmonary disease) Dyspnea Emphysema lung GERD (gastroesophageal reflux disease) History of colon cancer Hypertension Osteoporosis Postoperative ileus Pulmonary nodule Sepsis Tachycardia Wrist fracture, bilateral Functional capacity: uses cane/walker Patient : No Family History: Family History (Last Reviewed 02/23/23 @ 09:36 by Sha Smith [facility]) Mother Vaginal cancer Maternal Aunt Breast cancer Surgical History: Surgical History (Last Reviewed 02/23/23 @ 09:36 by Sha Smith [facility]) H/O colectomy H/O hysterectomy with oophorectomy History of appendectomy History of cataract surgery History of laparotomy History of lumpectomy of right breast Hx of colonoscopy Hx of esophagogastroduodenoscopy Hx of lumpectomy S/P excision of lipoma Status post exploratory laparotomy Social History: Social History (Last Reviewed 02/23/23 @ 09:36 by Sha Smith [facility]) Living Situation History: Household Members: None Housing: House Are you a primary summer child caregiver to a significant other at home: No Do you presently have visiting nurse or other home services: Yes Do you presently have visiting nurse or other home services comment: once a week for surgery Alcohol History Details: 1. How often do you have a drink containing alcohol?: a. Never Tobacco History: Patient Tobacco Use Status: Former Tobacco user Tobacco use type: Cigarette Years Smoked: 25 years Second Hand Smoke Exposure: No Substance Use History: Use of substances other than those prescribed or required for medical reasons : No Domestic Abuse History: Have you been hit, kicked, punched, or otherwise hurt by someone within the past year? If so, by whom?: No Advance Directives: Advance Directives: No Advance Directives Information Provided: Yes Advance Directives Date on File: 03/19/22 Homicidal Assessment: Do you have thoughts of harming others: None Do you have a plan to hurt others: No Plan Do you have the means to hurt others: No Nutrition Assessment: Recently lost weight without trying: Yes How much weight loss: 2-13 pounds Eating poorly because of decreased appetite: Yes Nutrition screen score: 4 Patient : No Occupation Assessmet: service: No Current occupational status: retired Current occupational status: disabled Current occupation: rt handed Oncology Screenings - ECOG Performance Status ECOG Performance Status: 1 Home Medications and Allergies Home Medications Medication Instructions Recorded Confirmed Type cholecalciferol (vitamin D3) 25 25 mcg PO DAILY 06/03/20 02/23/23 History mcg (1,000 unit) tablet ferrous sulfate 325 mg (65 mg 325 mg PO DAILY 06/03/20 02/23/23 History iron) tablet maisbqictdcs-jhwqtcgd-ydjjaf tablet 1 tab PO DAILY 06/03/20 02/23/23 History tizanidine 4 mg tablet 4 mg PO BEDTIME PRN Muscle Pain 06/03/20 02/23/23 History calcium carbonate 500 mg calcium 500 mg PO DAILY 03/07/22 02/23/23 History (1,250 mg) tablet cyanocobalamin (vitamin B-12) 1,000 mcg IM QMONTH 03/19/22 02/23/23 History 1,000 mcg/mL injection solution hydrochlorothiazide 25 mg tablet 25 mg PO DAILY 10/25/22 02/23/23 History meclizine 25 mg tablet 1 tab PO TID PRN dizziness 11/14/22 02/23/23 History Allergies Allergy/AdvReac Type Severity Reaction Status Date / Time meperidine [From Demerol] Allergy Mild VOMITING Verified 02/23/23 09:36 Exam Vital signs: Vital Signs Temp 98.0 F 11/14/22 09:24 Pulse 88 11/14/22 09:24 Resp 17 11/14/22 09:24 BP 127/66 11/14/22 09:24 Pulse Ox 98 11/14/22 09:24 O2 Del Method Room Air 11/14/22 09:24 Weight 54.9 kg BMI result Body Mass Index 20.1 - Constitutional Present: no acute distress - Routine HEENT Exam Head: Present: normal inspection Eye: Present: normal appearance ENT: Present: mucous membranes moist - Routine Neck Exam Present: full ROM - Routine Respiratory Exam Present: CTAB - Routine Cardiovascular Exam Cardiovascular: Present: RRR, S1, S2 - Routine Abdominal Exam Present: soft, nontender - Routine Rectal Exam Patient deferred: digital exam - Routine Extremities Exam Present: nontender - Routine Back/Spine/Pelvis Exam Back/Spine: Absent: CVA tenderness - Routine Skin Exam Present: intact - Routine Neurological Exam Present: alert, oriented X3 - Detailed Neurological Exam: Coma Scale Eye Opening: Spontaneous (4) - Routine Psychiatric Exam Present: normal affect Data - Labs CBC & Chem 7: 02/23/23 09:21 02/23/23 09:21 Assessment and Plan Patient Active problem list reviewed?: Yes (1) Breast cancer Status: Acute Assessment and plan: This is a pleasant 82 year-old lady here for a follow-up visit. 1. Breast cancer: 81 year-old lady with right Breast Carcinoma, stage I disease, ER positive TN positive HER-2/melina negative. She had a lumpectomy, followed by radiation. She was on Anti-estrogen therapy, which she completed in December of 2014. She currently remains in remission. Her mammogram in May of 2020 was benign. She was not been able to get a mammogram in 2020, because of the humeral fracture. Bone mineral density was in May 2018 and revealed osteoporosis. PLAN: She will continue to be followed along. She did not feel like going for a mammogram. I had offered her parenteral bisphosphonate therapy, for the osteoporosis. I have mentioned about Prolia, which would be convenient, every 6 months. She has again declined. She will discuss this further with her primary about other choices for os teoporosis. She will return in 3 months for a follow-up visit. CC: Dr. Camarena. Kriss De Leon. (2) Anemia Status: Acute Assessment and plan: 2. 82 year old lady with H/O Anemia: Iron deficiency: At her previous visit, last November, her hemoglobin had dropped down to 7.4. Concern was iron deficiency anemia. She was transfused. she had an upper endoscopy on 23 June 2020. This revealed: 1. Large hiatal hernia. 2. Reflux esophagitis. 3. Rule out celiac disease. Pathology revealed: A. DUODENAL MUCOSA WITH NO DIAGNOSTIC ABNORMALITY. Previous endoscopy from May to had revealed. ESOPHAGOGASTRIC JUNCTION-TYPE MUCOSA WITH AN ACUTE EROSIVE ESOPHAGITIS AND MINUTE FOCI OF SPECIALIZED NORMAN'S EPITHELIUM. NEGATIVE FOR DYSPLASIA. In addition she has B12 deficiency, she is on replacement therapy. Her I.F Antibody was negative, celiac antibody negative. Her hemoglobin is up at 11.4 gms. She was subsequently diagnosed with colon cancer. PLAN: I repeated her iron studies. Ferritin: Up to 15. Checked B12 level: >2000. Replaced with iron supplements. She will return in 3 months for a follow-up visit. She will call me in case she gets fatigued prior to that time. Thank you, CC: Kriss De Leon. Dr. Camarena. (3) Colon carcinoma Status: Acute Assessment and plan: This is a pleasant 82-year-old lady with a previous history of breast cancer. She was diagnosed with colon cancer. Pathology revealed: Adenocarcinoma, moderate to poorly differentiated with mucinous features, extending in subserosa. Surgical margins negative. Metastatic carcinoma identified in 10/20 lymph nodes examined. Stage:pT3, N2b. CEA: 3.70. She was seen by Dr. Shirley on 08/02/22. His note: The patient has extensive emphysema and has significant deconditioning. Will benefit from starting pulmonary rehab at this time. Repeat CT scan of the chest in 3 months, to follow-up pulmonary nodules. Follow-up July 2022 or sooner if she develops any worsening symptoms CT scan of the chest, on 07/03: Several new left upper lobe nodules largest measuring 4 mm. Severe emphysema. Moderate size esophageal hernia. Increasing bilateral axillary lymphadenopathy. In general, adjuvant chemotherapy is recommended for lymph node positive disease. I did discuss the details of the regimen including potential side effects of treatment. However at that time, she felt that she is only starting to feel better and would not have liked to have a setback, if she gets the chemotherapy and has side effects: i.e.nausea, anorexia diarrhea and weight loss with failure to thrive. She would've been at risk of significant toxicity especially at her age with s ignificant comorbidities. She said she will take her chances. She elected against it. Her CEA level is 4.2. Previously 3.0. CT scan of the abdomen: Stable pulmonary nodules. No abdominal findings. This is reassuring. PLAN: I will recheck imaging in 6 month's time. Pulmonary will be following up on the pulmonary nodules as well. She had an appointment with Dr. Cortez, in November. She will return in 3 months for a follow-up. Thank you. CC: Kriss De Leon. - Time Spent With Patient Time Spent with Patient (in minutes): 25
[2023-02-23 09:34] VITALS: BP 126/68; PULSE 80; TEMP 36.3; O2SAT 97; BMI 21.3
[2023-02-23 09:38] LABS: Basophils Absolute Auto 0.2 X10*3/uL (0.0-0.2); Basophils Percent Auto 3.4 % (0-2); Eosinophils Percent Auto 0.7 % (0-4); Hematocrit 34.4 % (37.0-47.0); Hemoglobin 11.4 g/dl (12.0-16.0); Imm Gran Abs Auto 0.03 X10*3/uL (0.00-0.03); Imm Gran Pct Auto 0.5 % (0.0-0.4); Lymphocytes Absolute Auto 1.3 X10*3/uL (1.2-4.9); MANUAL DIFF FLAG SCAN; Mean Corpuscular HGB Conc 33.1 g/dl (31.0-35.0); Mean Corpuscular Volume 93.5 fL (80.0-98.0); Mean Platelet Volume 10.2 fL (9.4-12.3); Monocytes Absolute Auto 0.4 X10*3/uL (0.1-1.2); Neutrophils Absolute Auto 3.7 x10*3/uL (2.0-8.3); Neutrophils Percent Auto 65.4 % (45-73); Platelet Count 320 X10*3/uL (160-400); Red Blood Count 3.68 X10*6/uL (4.20-5.50); Red Cell Distribution Width 13.7 % (11.0-16.0); SCAN SMEAR FLAG 1; White Blood Count 5.6 X10*3/uL (4.8-10.8)
[2023-02-23 10:00] LABS: SLIDE REVIEW VERIFIED
[2023-02-23 10:07] LABS: Alanine Aminotransferase 11 U/L (0-31); Albumin Level 4.1 g/dL (3.5-5.0); Alkaline Phosphatase 61 U/L (39-117); Anion Gap 14 (12-20); Aspartate Amino Transferase 17 U/L (5-31); Bilirubin Total 0.6 mg/dL (0.0-1.0); Blood Urea Nitrogen 27 mg/dL (9-16); Calcium 9.5 mg/dL (8.4-10.2); Carbon Dioxide 21 mmol/L (22-29); Chloride 111 mmol/L (96-108); Estimated Glomerular Filt Rate 42; Glucose Random 81 mg/dL (60-115); Potassium 5.3 mmol/L (3.3-5.1); Sodium 141 mmol/L (135-145); Total Protein 6.9 g/dL (6.5-8.0)
--- NOTE | 2023-02-23 14:05 | MHC.HEMONCMA ---
patient was seen in office today for breast ca, VSS, labs, patient will f/u in 3 months
[2023-02-24 08:43] LABS: CA 27.29 12 U/mL (<38)
--- NOTE | 2023-04-24 09:30 | MHC.HEMONC ---
Pt called for referral to PT for vertigo as she had it in the past and it helped her. Dr Davis signed referral and I faxed to [facility].
--- NOTE | 2023-05-21 09:06 | HE.ONCSEC ---
LVM reminding pt of appt on 05/21/23
[2023-05-22 10:29] LABS: MANUAL DIFF FLAG NO
[2023-05-22 10:36] VITALS: BP 117/68; PULSE 111; O2SAT 98; BMI 18.7
[2023-05-22 10:36] LABS: Basophils Absolute Auto 0.3 X10*3/uL (0.0-0.2); Basophils Percent Auto 2.7 % (0-2); Eosinophils Absolute Auto 0.1 X10*3/uL (0.0-0.4); Eosinophils Percent Auto 0.7 % (0-4); Hematocrit 36.7 % (37.0-47.0); Hemoglobin 11.6 g/dl (12.0-16.0); Imm Gran Abs Auto 0.23 X10*3/uL (0.00-0.03); Imm Gran Pct Auto 2.3 % (0.0-0.4); Lymphocytes Absolute Auto 1.7 X10*3/uL (1.2-4.9); Lymphocytes Percent Auto 17.4 % (20-40); Mean Corpuscular HGB Conc 31.6 g/dl (31.0-35.0); Mean Corpuscular Hemoglobin 30.7 pg (27.0-33.0); Mean Corpuscular Volume 97.1 fL (80.0-98.0); Mean Platelet Volume 9.6 fL (9.4-12.3); Monocytes Absolute Auto 0.6 X10*3/uL (0.1-1.2); Monocytes Percent Auto 5.5 % (2-11); Neutrophils Absolute Auto 7.2 x10*3/uL (2.0-8.3); Neutrophils Percent Auto 71.4 % (45-73); Platelet Count 458 X10*3/uL (160-400); Red Blood Count 3.78 X10*6/uL (4.20-5.50); Red Cell Distribution Width 14.2 % (11.0-16.0)
--- NOTE | 2023-05-22 10:39 | P.PNHO-ONC_ITS ---
Medical Summary - Medical Summary Date of Service: 05/22/23 Chief complaint: Follow-up for: 1. Breast cancer. 2. Colon cancer. Primary Care Provider: Kriss De Leon NP Medical Summary: DIAGNOSES: 1. Stage I invasive ductal Carcinoma, right breast. 2. A 0.8 cm ER-positive, AL-positive, HER-2/melina negative by FISH. 3. Benign sentinel nodes. 4. Stage pT1bN0 (i-). 5. Anemia: Required transfusion, back in april. 6. Recent diagnosis of stage III colon cancer. CURRENT THERAPY: Tamoxifen started October 2009 completed 5 years in December 2014. Switched to Arimidex, due to LFT abnormalities. Interval History Interval history: 82 year-old lady, she is here for a followup visit. She is feeling better now however she had been rather sick for a couple of weeks. She did not feel herself. She felt wiped out. She had a fever for 1 day. She had a cough which was nonproductive. Not sore throat. She did not have an appetite. She has lost weight. Her energy level was low. She felt rather short of breath. She is not sure if she had COVID. She denies any breast related complaints. She denies chest pain. She denies any previous history of asthma or COPD. She has not had any nausea vomiting heartburn indigestion or abdominal pain. She denies constipation. Denies seeing any gross blood in the stools. She is still rather frustrated on account of the colostomy. It is rather unpredictable. Sometimes it leaks. She is homebound because of that. Sometimes she can go 3 days without having to change it. She has a good appetite. She has gained weight. She had a hard time sleeping. She was started on mirtazapine. She is in good spirits. The rest of the review of systems is unremarkable. She has seen Dr. Camarena and Dr. Cortez. She had a CT scan of chest abdomen pelvis on 02/08 which revealed: 1. Pulmonary nodules are unchanged. Some of the previously noted nodules are not well seen secondary to motion artifact. 2. No convincing evidence of metastatic disease in the abdomen or pelvis. 3. Incidental note made of unchanged tiny liver hypodensity, right renal angiomyolipoma, hiatal hernia, colonic diverticulosis, degenerative changes in the spine, hysterectomy, shotty retroperitoneal and iliac chain lymph nodes, and degenerative changes in the spine with grade 1 anterolisthesis L5 on S1. INTERIM HISTORY: Patient was in house between 03/19 and 04/10/22, the discharge summary: Hospital Course: The patient is an 81F who was admitted last March 19, 2022 from a SNF because of vomiting. She had undergone emergency right colon resection, end-ileostomy, mucus fistula last March 07, 2022 because of cecal perforation from an obstructing right colon tumor which turned out to be an adenocarcinoma. She was discharged on March 16 but was readmitted for vomiting. Initial impression was partial SBO vs. postop ileus. In view of her persistent vomitting, she had an NGT inserted on hospital day one. She was also in urinary retention with note of more than 1 liter of urine drained with insertion of the catheter. 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 She was started on TPN after hospital day 4 after a PICC line was placed . Her NGT was discontinued after a week in the hospital after she started to have ielostomy output. She was kept on clear liquids for a few days and this was slowly advanced. She was transfused 1 unit for a Hg of 7.4 with appropriate increase. She was being followed by the Hospitalist for her medical issues. She had a physical therapist see her for deconditioning and frailty and it was recommended that she should be in Rehab on discharge. Her TPN was discontinued earlier this week after her oral intake had improved. She had otherwise remained stable during her stay. She had a prolonged stay due to her fraily and deconditioning, as she did not feel ready to be moved to Rehab. Her Zarco catheter is to be kept in place, as Dr. Williamson had stated that he will see the patient in the office to see her if this can be removed. She subsequently was discharged to rehab. However after couple days she went back to the hospital. She was here for 3 weeks. She was then transferred to [facility] for rehab where she stayed for a month. She just came home on april. Previous history: She fell on April 21 and broke her right humerus. She did not need surgery. She was in a sling for a while. She was at rehab for 6 and a half weeks. She had physical therapy and occupational therapy at home twice a week. Due to that she was not able to get her mammogram done last month. She will go once she is able to elevate her arm. She was seen here back in April. At that time her hemoglobin was down to 7.4. She was given blood transfusion x2. She was referred for further GI evaluation. She underwent an upper endoscopy on June 23, by Dr. Camarena. This revealed: IMPRESSION: 1. Large hiatal hernia with associated proximal gastritis. 2. Duodenal polyp and/or lipoma, status post biopsy. 3. Rule out celiac disease. PLAN: The results of the biopsy will be checked. She was advised to use iron supplements daily. She will be started on omeprazole 20 mg each morning, but was advised to continue her H2 sabrina each evening. She will be seen within 2 or 3 months for a followup visit. She did have a negative colonoscopy in 2015 for evaluation of anemia and also had a negative colonoscopy in 2007. Therefore, we may hold off on the colonoscopy given the findings today and the clinical history. This has been discussed with her cousin. She was told she had hiatus hernia, and some ulceration. Pathology revealed: Duodenal mucosa within normal limits, polypoid small intestinal mucosa within normal limits. Diagnostic features of celiac disease not seen. . Review of Systems - Constitutional Reports no additional constitutional complaints, Reports body aches, Reports fatigue, Denies fever(s), Reports lack of energy, Reports malaise, Reports poor appetite, Reports weakness, Reports weight loss - Eyes Reports no additional eye complaints - ENT Reports no additional ear, nose, mouth, and throat complaints - Cardiovascular Reports no additional cardiovascular complaints - Respiratory Reports no additional respiratory complaints - Gastrointestinal Reports no additional gastrointestinal complaints - Genitourinary Reports no additional female genitourinary complaints - Musculoskeletal Reports no additional musculoskeletal complaints - Integumentary/Breasts Skin/Breast: Reports no additional skin complaints - Neurologic Reports no additional neurologic complaints, Reports as per HPI, Reports hearing normal, Denies weakness - Psychiatric Reports no additional psychiatric complaints - Endocrine Reports no additional endocrine complaints - Hematologic/Lymphatic Reports no additional hematologic/lymphatic complaints - Allergic/Immunologic Reports no additional allergic/immunologic complaints PMFSH Medical History: Medical History (Last Reviewed 05/22/23 @ 10:36 by Luis Caceres) Anemia B12 deficiency Bacteremia due to Gram-negative bacteria Breast cancer Chronic restrictive lung disease Colon carcinoma COPD (chronic obstructive pulmonary disease) Dyspnea Emphysema lung GERD (gastroesophageal reflux disease) History of colon cancer Hypertension Osteoporosis Postoperative ileus Pulmonary nodule Sepsis Tachycardia Wrist fracture, bilateral Functional capacity: uses cane/walker Patient : No Family History: Family History (Last Reviewed 05/22/23 @ 10:36 by Luis Caceres) Mother Vaginal cancer Maternal Aunt Breast cancer Surgical History: Surgical History (Last Reviewed 05/22/23 @ 10:36 by Luis Caceres) H/O colectomy H/O hysterectomy with oophorectomy History of appendectomy History of cataract surgery History of laparotomy History of lumpectomy of right breast Hx of colonoscopy Hx of esophagogastroduodenoscopy Hx of lumpectomy S/P excision of lipoma Status post exploratory laparotomy Social History: Social History (Last Reviewed 05/22/23 @ 10:36 by Luis Caceres) Living Situation History: Household Members: None Housing: House Are you a primary care analyst to a significant other at home: No Do you presently have visiting nurse or other home services: Yes Do you presently have visiting nurse or other home services comment: once a week for surgery Alcohol History Details: 1. How often do you have a drink containing alcohol?: a. Never Tobacco History: Patient Tobacco Use Status: Former Tobacco user Tobacco use type: Cigarette Years Smoked: 25 years Second Hand Smoke Exposure: No Substance Use History: Use of substances other than those prescribed or required for medical reasons : No Domestic Abuse History: Have you been hit, kicked, punched, or otherwise hurt by someone within the past year? If so, by whom?: No Advance Directives: Advance Directives: No Advance Directives Information Provided: Yes Advance Directives Date on File: 03/19/22 Homicidal Assessment: Do you have thoughts of harming others: None Do you have a plan to hurt others: No Plan Do you have the means to hurt others: No Nutrition Assessment: Recently lost weight without trying: Yes How much weight loss: 2-13 pounds Eating poorly because of decreased appetite: Yes Nutrition screen score: 4 Patient : No Occupation Assessmet: service: No Current occupational status: retired Current occupational status: disabled Current occupation: rt handed Oncology Screenings - ECOG Performance Status ECOG Performance Status: 1 Home Medications and Allergies Home Medications Medication Instructions Recorded Confirmed Type cholecalciferol (vitamin D3) 25 25 mcg PO DAILY 06/03/20 05/22/23 History mcg (1,000 unit) tablet ferrous sulfate 325 mg (65 mg 325 mg PO DAILY 06/03/20 05/22/23 History iron) tablet hcttcgmzwghd-nfhzkmjt-saumkr tablet 1 tab PO DAILY 06/03/20 05/22/23 History tizanidine 4 mg tablet 4 mg PO BEDTIME PRN Muscle Pain 06/03/20 05/22/23 History calcium carbonate 500 mg calcium 500 mg PO DAILY 03/07/22 05/22/23 History (1,250 mg) tablet cyanocobalamin (vitamin B-12) 1,000 mcg IM QMONTH 03/19/22 05/22/23 History 1,000 mcg/mL injection solution hydrochlorothiazide 25 mg tablet 25 mg PO DAILY 10/25/22 05/22/23 History Allergies Allergy/AdvReac Type Severity Reaction Status Date / Time meperidine [From Demerol] Allergy Mild VOMITING Verified 05/22/23 10:36 Exam Vital signs: Vital Signs Temp 97.4 F 02/23/23 09:34 Pulse 111 H 05/22/23 10:36 Resp 17 11/14/22 09:24 BP 117/68 05/22/23 10:36 Pulse Ox 98 05/22/23 10:36 O2 Del Method Room Air 05/22/23 10:36 Intake & Output 05/21/23 05/22/23 05/22/23 18:59 06:59 18:59 Other: Weight 51.1 kg [place] Weight in Grams [address]27 Weight 51.1 kg BMI result Body Mass Index 18.7 - Constitutional Present: no acute distress - Routine HEENT Exam Head: Present: normal inspection Eye: Present: normal appearance ENT: Present: mucous membranes moist - Routine Neck Exam Present: full ROM - Routine Respiratory Exam Present: CTAB - Routine Cardiovascular Exam Cardiovascular: Present: RRR, S1, S2 - Routine Abdominal Exam Present: soft, nontender - Routine Rectal Exam Patient deferred: digital exam - Routine Extremities Exam Present: nontender - Routine Back/Spine/Pelvis Exam Back/Spine: Absent: CVA tenderness - Routine Skin Exam Present: intact - Routine Neurological Exam Present: alert, oriented X3 - Detailed Neurological Exam: Coma Scale Eye Opening: Spontaneous (4) - Routine Psychiatric Exam Present: normal affect Data - Labs CBC & Chem 7: 05/22/23 10:28 05/22/23 10:28 Assessment and Plan Patient Active problem list reviewed?: Yes (1) Breast cancer Status: Acute Assessment and plan: This is a pleasant 82 year-old lady here for a follow-up visit. 1. Breast cancer: 81 year-old lady with right Breast Carcinoma, stage I disease, ER positive AL positive HER-2/melina negative. She had a lumpectomy, followed by radiation. She was on Anti-estrogen therapy, which she completed in December of 2014. She currently remains in remission. Her mammogram in May of 2020 was benign. She was not been able to get a mammogram in 2020, because of the humeral fracture. Bone mineral density was in May 2018 and revealed osteoporosis. Recently she came down with the something. It was flu versus COVID. She is on the mend. Ca 27.29: 22. PLAN: She will continue to be followed along. She did not feel like going for a mammogram. I had offered her parenteral bisphosphonate therapy, for the osteoporosis. I have mentioned about Prolia, which would be convenient, every 6 months. She declined again. She will discuss with her primary about other choices for osteoporosis. She will return in 3 months for a follow-up visit. CC: Dr. Camarena. Kriss De Leon. (2) Anemia Status: Acute Assessment and plan: 2. 82 year old lady with H/O Anemia: Iron deficiency: At her previous visit, last November, her hemoglobin had dropped down to 7.4. Concern was iron deficiency anemia. She was transfused. she had an upper endoscopy on 23 June 2020. This revealed: 1. Large hiatal hernia. 2. Reflux esophagitis. 3. Rule out celiac disease. Pathology revealed: A. DUODENAL MUCOSA WITH NO DIAGNOSTIC ABNORMALITY. Previous endoscopy from May to had revealed. ESOPHAGOGASTRIC JUNCTION-TYPE MUCOSA WITH AN ACUTE EROSIVE ESOPHAGITIS AND MINUTE FOCI OF SPECIALIZED NORMAN'S EPITHELIUM. NEGATIVE FOR DYSPLASIA. In addition she has B12 deficiency, she is on replacement therapy. Her I.F Antibody was negative, celiac antibody negative. Her hemoglobin is up at 11.4 gms. She was subsequently diagnosed with colon cancer. PLAN: I repeated her iron studies. Ferritin: Up to 15. Checked B12 level: >2000. Replaced with iron supplements. She will return in 3 months for a follow-up visit. She will call me in case she gets fatigued prior to that time. Thank you, CC: Kriss De Leon. Dr. Camarena. (3) Colon carcinoma Status: Acute Assessment and plan: This is a pleasant 82-year-old lady with a previous history of breast cancer. She was diagnosed with colon cancer. Pathology revealed: Adenocarcinoma, moderate to poorly differentiated with mucinous features, extending in subserosa. Surgical margins negative. Metastatic carcinoma identified in 10/20 lymph nodes examined. Stage:pT3, N2b. CEA: 3.70. She was seen by Dr. Shirley on 08/02/22. His note: The patient has extensive emphysema and has significant deconditioning. Will benefit from starting pulmonary rehab at this time. Repeat CT scan of the chest in 3 months, to follow-up pulmonary nodules. Follow-up July 2022 or sooner if she develops any worsening symptoms CT scan of the chest, on 07/03: Several new left upper lobe nodules largest measuring 4 mm. Severe emphysema. Moderate size esophageal hernia. Increasing bilateral axillary lymphadenopathy. In general, adjuvant chemotherapy is recommended for lymph node positive disease. I did discuss the details of the regimen including potential side effects of treatment. However at that time, she felt that she is only starting to feel better and would not have liked to have a setback, if she gets the chemotherapy and has side effects: i.e.nausea, anorexia diarrhea and weight loss with failure to thrive. She would've been at risk of significant toxicity especially at her age with significant comorbidities. She said she will take her chances. She elected against it. CT scan of the chest abdomen from 02/16: 1. Stable pulmonary nodules. 2. No convincing evidence of metastatic disease in the abdomen or pelvis. 3. Incidental note made of unchanged tiny liver hypodensity, right renal angiomyolipoma, hiatal hernia, colonic diverticulosis, degenerative changes in the spine, hysterectomy, shotty retroperitoneal and iliac chain lymph nodes, and degenerative changes in the spine with grade 1 anterolisthesis L5 on S1. No abdominal findings. This is reassuring. She is not very symptomatic however. Serial CEA levels: 3.0, 4.2, 5.2 and now 34. This is of concern. Not sure if patient is keen on getting any further anti tumor therapy. PLAN: I will recheck imaging now. l added on molecular testing on her colonic tumor tissue: BRAF, Kras.Nras etc. She will return in 1 month for a follow-up. Thank you. CC: Kriss De Leon. - Time Spent With Patient Time Spent with Patient (in minutes): 30
--- NOTE | 2023-05-22 10:54 | MHC.HEMONCMA ---
patient seen today for breast cancer, vss, labs, following up with provider in 6 months
[2023-05-22 11:04] LABS: Alanine Aminotransferase 9 U/L (0-31); Albumin Level 4.1 g/dL (3.5-5.0); Alkaline Phosphatase 77 U/L (39-117); Anion Gap 18 (12-20); Aspartate Amino Transferase 14 U/L (5-31); Bilirubin Total 0.4 mg/dL (0.0-1.0); Blood Urea Nitrogen 77 mg/dL (9-16); Calcium 9.9 mg/dL (8.4-10.2); Carbon Dioxide 16 mmol/L (22-29); Chloride 109 mmol/L (96-108); Creatinine Clr Calc Pharmacy 11.9; Estimated Glomerular Filt Rate 15; Glucose Random 95 mg/dL (60-115); Potassium 4.6 mmol/L (3.3-5.1); Sodium 138 mmol/L (135-145); Total Protein 8.5 g/dL (6.5-8.0)
[2023-05-25 19:09] LABS: CA 27.29 22 U/mL (<38)
[2023-08-02 11:08] VITALS: BP 118/72; PULSE 114; O2SAT 97; BMI 18.8
--- NOTE | 2023-08-02 11:31 | PM.HEMONCPN ---
Medical Summary - Medical Summary Date of Service: 08/02/23 Chief complaint: Follow-up for: 1. Breast cancer. 2. Colon cancer. Primary Care Provider: Kriss De Leon NP Medical Summary: DIAGNOSES: 1. Stage I invasive ductal Carcinoma, right breast. 2. A 0.8 cm ER-positive, MN-positive, HER-2/melina negative by FISH. 3. Benign sentinel nodes. 4. Stage pT1bN0 (i-). 5. Anemia: Required transfusion, back in april. 6. Recent diagnosis of stage III colon cancer. CURRENT THERAPY: Tamoxifen started October 2009 completed 5 years in December 2014. Switched to Arimidex, due to LFT abnormalities. Interval History Interval history: 82 year-old lady, she is here for a followup visit. She was in house between 06/20 through 06/23. Discharge summary: Patient was admitted for acute kidney injury superimposed on CKD 3. Likely mostly urinary retention from right ureteral stricture with hydronephrosis in combination with dehydration, patient underwent stent placement on 06/19. Creatinine improved significantly. Urine cultures grew Klebsiella. For UTI she she was ceftriaxone and will be discharged on 5 more days of cefuroxime. Acute metabolic acidosis due to LEONIE she improved with bicarb drip. For acute hyperkalemia due to LEONIE this resolved. For acute inflammatory anemia she received 1 unit of PRBC and hemoglobin improved appropriately. For history of colon breast CA now with suspicious liver lesions she was seen by Oncology. Patient was not interested in further workup or treatment and is being referred for hospice informational. Her COPD remained stable. Patient will be discharged to [facility] for [facility]-term rehab. She should follow up with Urology . She was at [facility] in [place] for 3 weeks. It came home on 07/16. It did help, she was able to walk before previously she was not. She still feels rather tired at times. She has a hard time sleeping. She was receiving Ambien at the rehab but that has been discontinued. Mirtazapine, Benadryl or melatonin do not really work for her. She denies any breast related complaints. She denies chest pain. She denies any previous history of asthma or COPD. She has not had any nausea vomiting heartburn indigestion or abdominal pain. She denies constipation. Denies seeing any gross blood in the stools. She is still rather frustrated on account of the colostomy. It is rather unpredictable. Sometimes it leaks. She is homebound because of that. Sometimes she can go 3 days without having to change it. She has a good appetite. She had lost weight but now is gaining weight. She is in good spirits. The rest of the review of systems is unremarkable. She has seen Dr. Camarena and Dr. Cortez. She had a CT scan of chest abdomen pelvis on 02/08 which revealed: 1. Pulmonary nodules are unchanged. Some of the previously noted nodules are not well seen secondary to motion artifact. 2. No convincing evidence of metastatic disease in the abdomen or pelvis. 3. Incidental note made of unchanged tiny liver hypodensity, right renal angiomyolipoma, hiatal hernia, colonic diverticulosis, degenerative changes in the spine, hysterectomy, shotty retroperitoneal and iliac chain lymph nodes, and degenerative changes in the spine with grade 1 anterolisthesis L5 on S1. INTERIM HISTORY: Patient was in house between 03/19 and 04/10/22, the discharge summary: Hospital Course: The patient is an 81F who was admitted last March 19, 2022 from a SNF because of vomiting. She had undergone emergency right colon resection, end-ileostomy, mucus fistula last March 07, 2022 because of cecal perforation from an obstructing right colon tumor which turned out to be an adenocarcinoma. She was discharged on March 16 but was readmitted for vomiting. Initial impression was partial SBO vs. postop ileus. In view of her persistent vomitting, she had an NGT inserted on hospital day one. She was also in urinary retention with note of more than 1 liter of urine drained with insertion of the catheter. 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 She was started on TPN after hospital day 4 after a PICC line was placed . Her NGT was discontinued after a week in the hospital after she started to have ielostomy output. She was kept on clear liquids for a few days and this was slowly advanced. She was transfused 1 unit for a Hg of 7.4 with appropriate increase. She was being followed by the Hospitalist for her medical issues. She had a physical therapist see her for deconditioning and frailty and it was recommended that she should be in Rehab on discharge. Her TPN was discontinued earlier this week after her oral intake had improved. She had otherwise remained stable during her stay. She had a prolonged stay due to her fraily and deconditioning, as she did not feel ready to be moved to Rehab. Her Zarco catheter is to be kept in place, as Dr. Williamson had stated that he will see the patient in the office to see her if this can be removed. She subsequently was discharged to rehab. However after couple days she went back to the hospital. She was here for 3 weeks. She was then transferred to [facility] for rehab where she stayed for a month. She just came home on april. Previous history: She fell on April 21 and broke her right humerus. She did not need surgery. She was in a sling for a while. She was at rehab for 6 and a half weeks. She had physical therapy and occupational therapy at home twice a week. Due to that she was not able to get her mammogram done last month. She will go once she is able to elevate her arm. She was seen here back in April. At that time her hemoglobin was down to 7.4. She was given blood transfusion x2. She was referred for further GI evaluation. She underwent an upper endoscopy on June 23, by Dr. Camarena. This revealed: IMPRESSION: 1. Large hiatal hernia with associated proximal gastritis. 2. Duodenal polyp and/or lipoma, status post biopsy. 3. Rule out celiac disease. PLAN: The results of the biopsy will be checked. She was advised to use iron supplements daily. She will be started on omeprazole 20 mg each morning, but was advised to continue her H2 sabrina each evening. She will be seen within 2 or 3 months for a followup visit. She did have a negative colonoscopy in 2015 for evaluation of anemia and also had a negative colonoscopy in 2007. Therefore, we may hold off on the colonoscopy given the findings today and the clinical history. This has been discussed with her cousin. She was told she had hiatus hernia, and some ulceration. Pathology revealed: Duodenal mucosa within normal limits, polypoid small intestinal mucosa within normal limits. Diagnostic features of celiac disease not seen. . Review of Systems - Constitutional Reports no additional constitutional complaints, Reports lack of energy, Reports weight gain - Eyes Reports no additional eye complaints - ENT Reports no additional ear, nose, mouth, and throat complaints - Cardiovascular Reports no additional cardiovascular complaints - Respiratory Reports no additional respiratory complaints - Gastrointestinal Reports no additional gastrointestinal complaints - Genitourinary Reports no additional female genitourinary complaints - Musculoskeletal Reports no additional musculoskeletal complaints - Integumentary/Breasts Skin/Breast: Reports no additional skin complaints - Neurologic Reports no additional neurologic complaints, Reports as per HPI, Reports hearing normal, Reports weakness - Psychiatric Reports no additional psychiatric complaints - Endocrine Reports no additional endocrine complaints - Hematologic/Lymphatic Reports no additional hematologic/lymphatic complaints - Allergic/Immunologic Reports no additional allergic/immunologic complaints [facility] Medical History: Medical History (Last Reviewed 08/02/23 @ 11:06 by Luis Caceres) Anemia B12 deficiency Bacteremia due to Gram-negative bacteria Breast cancer Chronic restrictive lung disease Colon carcinoma COPD (chronic obstructive pulmonary disease) Dyspnea Emphysema lung GERD (gastroesophageal reflux disease) History of colon cancer Hypertension Osteoporosis Postoperative ileus Pulmonary nodule Sepsis Tachycardia Wrist fracture, bilateral Functional capacity: uses cane/walker Patient : No Family History: Family History (Last Reviewed 08/02/23 @ 11:06 by Luis Caceres) Mother Vaginal cancer Maternal Aunt Breast cancer Surgical History: Surgical History (Last Reviewed 08/02/23 @ 11:06 by Luis Caceres) H/O colectomy H/O hysterectomy with oophorectomy History of appendectomy History of cataract surgery History of laparotomy History of lumpectomy of right breast Hx of colonoscopy Hx of esophagogastroduodenoscopy Hx of lumpectomy S/P excision of lipoma Status post exploratory laparotomy Social History: Social History (Last Reviewed 08/02/23 @ 11:06 by Luis Caceres) Living Situation History: Household Members: None Housing: House Are you a primary manager critical care to a significant other at home: No Do you presently have visiting nurse or other home services: No Alcohol History Details: 1. How often do you have a drink containing alcohol?: a. Never Tobacco History: Patient Tobacco Use Status: Former Tobacco user Tobacco use type: Cigarette Years Smoked: 25 years Smoke Quit Date: 1987 Second Hand Smoke Exposure: No Substance Use History: Use of substances other than those prescribed or required for medical reasons: No Domestic Abuse History: Have you been hit, kicked, punched, or otherwise hurt by someone within the past year? If so, by whom?: No Advance Directives: Advance Directives: No Advance Directives Information Provided: Yes Advance Directives Date on File: 03/19/22 Homicidal Assessment: Do you have thoughts of harming others: None Do you have a plan to hurt others: No Plan Do you have the means to hurt others: No Nutrition Assessment: Recently lost weight without trying: Yes How much weight loss: 2-13 pounds Eating poorly because of decreased appetite: Yes Nutrition screen score: 4 Patient : No Occupation Assessmet: service: No Current occupational status: retired Current occupational status: disabled Current occupation: rt handed Oncology Screenings - ECOG Performance Status ECOG Performance Status: 1 Home Medications and Allergies Home Medications Medication Instructions Recorded Confirmed Type cholecalciferol (vitamin D3) 25 25 mcg PO DAILY 06/03/20 08/02/23 History mcg (1,000 unit) tablet ferrous sulfate 325 mg (65 mg 325 mg PO DAILY 06/03/20 08/02/23 History iron) tablet loibpyxezdpm-ttkkgpsu-gqaxvd tablet 1 tab PO DAILY 06/03/20 08/02/23 History calcium carbonate 500 mg calcium 500 mg PO DAILY 03/07/22 08/02/23 History (1,250 mg) tablet cyanocobalamin (vitamin B-12) 1,000 mcg IM Q42D 03/19/22 08/02/23 History 1,000 mcg/mL injection solution vitamin E 268 mg (400 unit) capsule 268 mg PO DAILY 06/18/23 08/02/23 History tizanidine 2 mg tablet 2 mg PO Q8H PRN muscle relax 08/02/23 08/02/23 History Allergies Allergy/AdvReac Type Severity Reaction Status Date / Time meperidine [From Demerol] Allergy Mild VOMITING Verified 08/02/23 11:06 Exam Vital signs: Vital Signs Temp 97.4 F 02/23/23 09:34 Pulse 114 H 08/02/23 11:08 Resp 17 11/14/22 09:24 BP 118/72 08/02/23 11:08 Pulse Ox 97 08/02/23 11:08 O2 Del Method Room Air 08/02/23 11:08 Intake & Output 08/01/23 08/02/23 08/02/23 18:59 06:59 18:59 Other: Weight 51.2 kg Startex Weight in Grams 88497 Weight 51.2 kg BMI result Body Mass Index 18.8 - Constitutional Present: no acute distress - Routine HEENT Exam Head: Present: normal inspection Eye: Present: normal appearance ENT: Present: mucous membranes moist - Routine Neck Exam Present: full ROM - Routine Respiratory Exam Present: CTAB - Routine Cardiovascular Exam Cardiovascular: Present: RRR, S1, S2 - Routine Abdominal Exam Present: soft, nontender - Routine Rectal Exam Patient deferred: digital exam - Routine Extremities Exam Present: nontender - Routine Back/Spine/Pelvis Exam Back/Spine: Absent: CVA tenderness - Routine Skin Exam Present: intact - Routine Neurological Exam Present: alert, oriented X3 - Detailed Neurological Exam: Coma Scale Eye Opening: Spontaneous (4) - Routine Psychiatric Exam Present: normal affect Data - Labs CBC & Chem 7: 08/02/23 11:49 08/02/23 11:49 Assessment and Plan Patient Active problem list reviewed?: Yes (1) Breast cancer Status: Acute Assessment and plan: This is a pleasant 82 year-old lady here for a follow-up visit. 1. Breast cancer: 81 year-old lady with right Breast Carcinoma, stage I disease, ER positive MN positive HER-2/melina negative. She had a lumpectomy, followed by radiation. She was on Anti-estrogen therapy, which she completed in December of 2014. She currently remains in remission. Her mammogram in May of 2020 was benign. She was not been able to get a mammogram in 2020, because of the humeral fracture. Bone mineral density was in May 2018 and revealed osteoporosis. Recently she came down with the something. It was flu versus COVID. She is on the mend. Ca 27.29: 22. PLAN: She will continue to be followed along. She does not feel upto going for a mammogram. I had offered her parenteral bisphosphonate therapy, for the osteoporosis. I have mentioned about Prolia, which would be convenient, every 6 months. She declined again. She will discuss with her primary about other choices for osteoporosis. She will return in 3 months for a follow-up visit. CC: Dr. Camarena. Kriss De Leon. (2) Anemia Status: Acute Assessment and plan: 2. 82 year old lady with H/O Anemia: Iron deficiency: At her previous visit, last November, her hemoglobin had dropped down to 7.4. Concern was iron deficiency anemia. She was transfused. she had an upper endoscopy on 23 June 2020. This revealed: 1. Large hiatal hernia. 2. Reflux esophagitis. 3. Rule out celiac disease. Pathology revealed: A. DUODENAL MUCOSA WITH NO DIAGNOSTIC ABNORMALITY. Previous endoscopy from May to had revealed. ESOPHAGOGASTRIC JUNCTION-TYPE MUCOSA WITH AN ACUTE EROSIVE ESOPHAGITIS AND MINUTE FOCI OF SPECIALIZED NORMAN'S EPITHELIUM. NEGATIVE FOR DYSPLASIA. In addition she has B12 deficiency, she is on replacement therapy. Her I.F Antibody was negative, celiac antibody negative. Her hemoglobin is up at 11.4 gms. She was subsequently diagnosed with colon cancer. PLAN: I repeated her iron studies. Ferritin: Up to 15. Checked B12 level: >2000. Replaced with iron supplements. She will return in 3 months for a follow-up visit. She will call me in case she gets fatigued prior to that time. Thank you, CC: Kriss De Leon. Dr. Camarena. (3) Colon carcinoma Status: Acute Assessment and plan: This is a pleasant 82-year-old lady with a previous history of breast cancer. She was diagnosed with colon cancer. Pathology revealed: Adenocarcinoma, moderate to poorly differentiated with mucinous features, extending in subserosa. Surgical margins negative. Metastatic carcinoma identified in 10/20 lymph nodes examined. Stage:pT3, N2b. CEA: 3.70. She was seen by Dr. Shirley on 08/02/22. His note: The patient has extensive emphysema and has significant deconditioning. Will benefit from starting pulmonary rehab at this time. Repeat CT scan of the chest in 3 months, to follow-up pulmonary nodules. Follow-up July 2022 or sooner if she develops any worsening symptoms CT scan of the chest, on 07/03: Several new left upper lobe nodules largest measuring 4 mm. Severe emphysema. Moderate size esophageal hernia. Increasing bilateral axillary lymphadenopathy. In general, adjuvant chemotherapy is recommended for lymph node positive disease. I did discuss the details of the regimen including potential side effects of treatment. However at that time, she felt that she is only starting to feel better and would not have liked to have a setback, if she gets the chemotherapy and has side effects: i.e.nausea, anorexia diarrhea and weight loss with failure to thrive. She would've been at risk of significant toxicity especially at her age with significant comorbidities. She said she will take her chances. She elected against it. CT scan of the chest abdomen from 02/16: 1. Stable pulmonary nodules. 2. No convincing evidence of metastatic disease in the abdomen or pelvis. 3. Incidental note made of unchanged tiny liver hypodensity, right renal angiomyolipoma, hiatal hernia, colonic diverticulosis, degenerative changes in the spine, hysterectomy, shotty retroperitoneal and iliac chain lymph nodes, and degenerative changes in the spine with grade 1 anterolisthesis L5 on S1. She was admitted to the hospital end of May with renal failure and hyperkalemia. She had hydronephrosis for which she required stents placement. CT chest abdomen pelvis from 06/17 revealed: New multiple liver lesions of various sizes. Largest measuring 2.7). Right mid quadrant colostomy without any signs of obstruction. Nonspecific minimal mural thickening involving medial loops in the right mid pelvis. Descending and left transverse colonic diverticulosis without diverticulitis. Cholelithiasis. Significant right hydroureteronephrosis with dilated ureter extending into the right pelvis. No obvious etiology seen. This could be secondary to postsurgical scarring. Correlate with history. May need a nephrostomy tube. Right renal cyst No osseous bony lesion seen. Diffuse emphysema with 6 mm lingular lung nodule. She is not very symptomatic however, her CEA level back in May was up to 61. Serial CEA levels: 3.0, 4.2, 5.2 and now 34. I had address the issue of disease progression with her when she was in house. She had again declined any anti tumor therapy. A referral to hospice was made however she feels she is managing well so far and so declined. Readdressed the issue now. Went over the details of treatment including the pros and the cons. She still does not wish to consider any form of chemo/immunotherapy. PLAN: She would like to have her labs checked today. CEA: 436. Discussed referral to for hospice care however she feels she is not ready yet. She will return in 3 months for a follow-up. Thank you. CC: Kriss De Leon. - Time Spent With Patient Time Spent with Patient (in minutes): 30
[2023-08-02 12:00] LABS: Hematocrit 33.2 % (37.0-47.0); Hemoglobin 10.5 g/dl (12.0-16.0); Mean Corpuscular HGB Conc 31.6 g/dl (31.0-35.0); Mean Corpuscular Hemoglobin 32.8 pg (27.0-33.0); Mean Corpuscular Volume 103.8 fL (80.0-98.0); Mean Platelet Volume 10.7 fL (9.4-12.3); Platelet Count 262 X10*3/uL (160-400); Red Cell Distribution Width 15.3 % (11.0-16.0)
[2023-08-02 12:01] LABS: WBC ABN SCTR FOR CBC 1
[2023-08-02 12:17] LABS: Band Neutrophils Percent 1 % (3-5); Basophils Percent Manual 1 % (0-2); Lymphocytes Percent Manual 17 % (20-40); Monocytes Percent Manual 4 % (2-11); Neutrophils Percent Manual 77 % (45-73)
[2023-08-02 12:19] LABS: Burr Cells 3+ (>5) /OIF; Macrocytosis 1+ (5-14) /OIF; Platelet Estimate NORMAL (NORMAL); RBC Morphology NOTED
[2023-08-02 12:20] LABS: Platelet Morphology Comment NORMAL
[2023-08-02 12:22] LABS: Basophils Abs Manual 0.1 X10*3/uL (0.0-0.2); Monocytes Absolute Manual 0.2 X10*3/uL (0.1-1.2); Neutrophils Absolute Manual 4.4 X10*3/uL (2.0-8.3); White Blood Count 5.6 X10*3/uL (4.8-10.8)
[2023-08-02 12:28] LABS: Alanine Aminotransferase 57 U/L (0-31); Albumin Level 3.7 g/dL (3.5-5.0); Alkaline Phosphatase 166 U/L (39-117); Anion Gap 16 (12-20); Aspartate Amino Transferase 64 U/L (5-31); Bilirubin Total 1.1 mg/dL (0.0-1.0); Blood Urea Nitrogen 32 mg/dL (9-16); Calcium 9.5 mg/dL (8.4-10.2); Carbon Dioxide 18 mmol/L (22-29); Chloride 114 mmol/L (96-108); Creatinine Clr Calc Pharmacy 21.8; Estimated Glomerular Filt Rate 31; Glucose Random 96 mg/dL (60-115); Potassium 5.5 mmol/L (3.3-5.1); Sodium 142 mmol/L (135-145); Total Protein 7.1 g/dL (6.5-8.0)
[2023-08-06 15:38] LABS: CA 27.29 41 U/mL (<38)
--- NOTE | 2023-08-23 16:56 | MHC.HEMONC ---
Triage call-Nora patients cousin (health care proxy) called asking for Dr Davis to call her Re: Nereida. Pt was seen by pcp. Has mets to liver and has not been eating or drinking well. She is jaundiced. She is worried she may be getting dehydrated and has benefited from IV hydration in the past. Nora was asked by the PCP to update Dr Davis. Nora was informed Dr Davis away untill 08/30/23. Discussed case with Dr Delgado who was willing to see patient tomorrow. This was declined. Prefer to see Dr Davis when she comes back. Hydration offered for 08/24/23 but this was declined due to home issues. It was agreed to come for hydration on 08/30/23 at 1000. This was booked. No further questions.
--- NOTE | 2023-08-30 09:55 | MHC.HEMONC ---
Triage call-pt's health care proxy Nora called stating is too ill to come in today-cancelling appointment for IV hydration today. Per Nora pt is ready for Hospice now, requesting [facility]. Requesting to speak with Dr Davis today. Dr Davis notified of pt's plan to start on Hospice and to call pt's health care proxy Nora at [phone]
--- NOTE | 2023-08-30 14:18 | MHC.HEMONC ---
Referral made to [facility]/Hospice at Dr Davis's request.
--- NOTE | 2023-09-07 17:12 | MHC.HEMONC ---
Nurse received rejected scrip from [facility] on [address] for pt's liquid morphine 20 mg/mL oral solution. Pt is on hospice. [facility] scrip does not have Hospice ID #, only BIN # and this is insufficient, pharmacist Isabella at [facility] said she needs a Hospice ID#.. Nurse spoke w/ Kait and Gina at [facility], who gave this nurse pt's Account #. Nurse called back [facility], gave , and this allowed scrip to go through.
== END 2023-10-05 10:10 | disposition home or self-care (01) ==
LOC: HO.ONC 11:00
PROVIDERS: Surgery; PCP Nurse Practitioner Family; Visit Provider Internal Medicine Medical Oncology
DX: C18.2 Malignant neoplasm of ascending colon (principal); C77.9 Secondary and unspecified malignant neoplasm of lymph node, unspecified; R91.8 Other nonspecific abnormal finding of lung field; D50.9 Iron deficiency anemia, unspecified; E53.8 Deficiency of other specified B group vitamins; M81.0 Age-related osteoporosis without current pathological fracture; N18.30 Chronic kidney disease, stage 3 unspecified; Z85.3 Personal history of malignant neoplasm of breast; Z79.899 Other long term (current) drug therapy; Z93.2 Ileostomy status; Z92.3 Personal history of irradiation
CPT/HCPCS: 36415; 36430; 71046; 80053; 81210; 81275; 81276; 81311; 81403; 82306; 82378; 82607; 82728; 82746; 83540; 83615; 85007; 85025; 85027; 86300; 86850; 86870; 86900; 86901; 86920; 86923; 88360; 88363; 99213; 99214; P9016

== ENCOUNTER 2023-08-22 09:38 | Outpatient (REF) | payer MEDICARE, SELFPAY ==
[2023-08-22 10:40] LABS: Alanine Aminotransferase 75 U/L (0-31); Albumin Level 3.7 g/dL (3.5-5.0); Alkaline Phosphatase 353 U/L (39-117); Anion Gap 17 (12-20); Aspartate Amino Transferase 107 U/L (5-31); Bilirubin Total 6.3 mg/dL (0.0-1.0); Blood Urea Nitrogen 26 mg/dL (9-16); Calcium 9.8 mg/dL (8.4-10.2); Carbon Dioxide 18 mmol/L (22-29); Chloride 106 mmol/L (96-108); Cholesterol 189 mg/dL (<200); Estimated Glomerular Filt Rate 28; Glucose Random 126 mg/dL (60-115); HDL Cholesterol 23 mg/dL (>40); LDL Cholesterol Calculated 140 mg/dL (<100); Potassium 4.6 mmol/L (3.3-5.1); Sodium 136 mmol/L (135-145); Total Protein 7.3 g/dL (6.5-8.0); Triglycerides 130 mg/dL (<150)
== END 2023-08-22 09:39 | disposition home or self-care (01) ==
LOC: HO.LAB 09:38
PROVIDERS: PCP Nurse Practitioner Family; Visit Provider Nurse Practitioner Family
DX: I10 Essential (primary) hypertension (principal); N28.9 Disorder of kidney and ureter, unspecified
CPT/HCPCS: 36415; 80053; 80061